=== PATIENT | male | born 1940 | race Caucasian/White ===

== ENCOUNTER → 2017-12-31 | Outpatient (CLI) | payer MEDICARE ==
[2017-12-31 16:00] LABS: HCT 37.4 % (39.0-53.0); HGB 12.1 gm/dL (13.0-17.5); MCH 30.7 pg (25.0-35.0); MCHC 32.3 g/dL (31.0-37.0); Mean Platelet Volume 10.2; Platelet Count 186 k/uL (150-450); RBC 3.94 m/uL (4.30-5.90); RDW 14.6 % (11.5-15.5); WBC 6.1 k/uL (3.8-10.6)
[2017-12-31 16:10] LABS: Anion Gap 13 mmol/L; Blood Urea Nitrogen 25 mg/dL (9-20); Calcium 9.7 mg/dL (8.4-10.2); Carbon Dioxide 25 mmol/L (22-30); Chloride 98 mmol/L (98-107); Glucose 317 mg/dL (74-99); Potassium 4.6 mmol/L (3.5-5.1); Sodium 136 mmol/L (137-145)
== END | disposition home or self-care (01) ==
LOC: LABWHC1 15:40
PROVIDERS: ATTEND Internal Medicine Cardiovascular Disease
DX: I50.9 Heart failure, unspecified (principal)
CPT/HCPCS: 36415; 80048; 85027

== ENCOUNTER → 2018-08-20 | Outpatient (CLI) | payer MEDICARE ==
[2018-08-20 10:12] LABS: Calcium 9.6 mg/dL (8.4-10.2); Potassium 4.8 mmol/L (3.5-5.1)
[2018-08-20 19:07] LABS: Hemoglobin A1C 10.4 % (4.0-6.0)
== END | disposition home or self-care (01) ==
LOC: LABWHC1 09:01
PROVIDERS: ATTEND Internal Medicine Cardiovascular Disease
DX: E11.9 Type 2 diabetes mellitus without complications (principal); N28.9 Disorder of kidney and ureter, unspecified; I25.5 Ischemic cardiomyopathy
CPT/HCPCS: 36415; 80048; 83036

== ENCOUNTER → 2019-04-08 | Outpatient (CLI) | payer MEDICARE ==
[2019-04-08 16:03] LABS: Anion Gap 10.3 mmol/L (4.00-12.00); Calcium 9.4 mg/dL (8.7-10.3); Carbon Dioxide 22.7 mmol/L (21.6-31.8); Potassium 4.1 mmol/L (3.5-5.5)
[2019-04-12 18:42] LABS: Large VLDL Particle Number,NMR 16.9 nmol/L (<=2.7)
== END | disposition home or self-care (01) ==
LOC: LABWHC1 09:11
PROVIDERS: ATTEND Internal Medicine Cardiovascular Disease
DX: I25.10 Atherosclerotic heart disease of native coronary artery without angina pectoris (principal)
CPT/HCPCS: 36415; 80048; 83704; 83880

== ENCOUNTER 2019-11-04 14:00 | Inpatient (IN) | payer MEDICARE ==
[2019-11-04] MEDS ORDERED: SODIUM CHLORIDE 0.9% 1,000 ML IV STA ×2 (14:08→15:43)
[2019-11-04 14:09] LABS: Glucose,Whole Blood 351 mg/dL (75-99)
--- NOTE | 2019-11-04 14:13 | ED ---
General Adult HPI - General Chief complaint: Syncope Stated complaint: Syncope Time Seen by Provider: 11/04/19 14:00 Source: EMS, RN notes reviewed, old records reviewed Mode of arrival: EMS Limitations: no limitations - History of Present Illness Initial comments: This is an 79-year-old male who presents to the emergency department after having had a syncopal episode. Patient went to the [place] and when he came out he was very lightheaded and according to EMS passed out. Patient's pressure was low in route and he was very pale. Patient states she was also short of breath still feels extremely weak. Patient states he is on eliquis for history of atrial fibrillation. Patient also states she's on iron because his blood count was low in the past. Patient denies any chest pain or palpitations. Patient denies any headache patient denies any focal numbness or weakness. Patient denies any abdominal pain patient denies nausea vomiting or diarrhea. Patient denies any recent fever chills or cough per patient denies any black or bloody stools. - Related Data Home Medications Medication Instructions Recorded Confirmed Ferrous Sulfate [Iron (65 MG 325 mg PO BID 08/17/15 10/29/17 Elemental)] Aspirin [Adult Low Dose Aspirin EC] 81 mg PO DAILY 06/16/16 10/29/17 Gemfibrozil [Lopid] 600 mg PO AC-BID 02/27/17 10/29/17 Metoprolol Succinate (ER) [Toprol 50 mg PO DAILY 02/27/17 10/29/17 XL] Metoprolol Succinate (ER) [Toprol 100 mg PO DAILY 02/27/17 10/29/17 XL] Previous Rx's Medication Instructions Recorded Atorvastatin [Lipitor] 40 mg PO HS #30 tablet 06/11/15 Pantoprazole Sodium [Protonix] 40 mg PO AC-BRKFST #30 tablet. 06/11/15 Insulin Detemir (Levemir) [Levemir] 20 unit SQ HS #1 syr 10/31/17 Allergies Allergy/AdvReac Type Severity Reaction Status Date / Time bismuth subsalicylate Allergy Severe ABD PAIN, Verified 10/29/17 14:22 [From Pepto-Bismol] N/V molasses Allergy Severe Nausea & Uncoded 10/29/17 13:47 Vomiting Review of Systems ROS Statement: Those systems with pertinent positive or pertinent negative responses have been documented in the HPI. ROS Other: All systems not noted in ROS Statement are negative. 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 [place]. HEART STENTS X3. Laser/Radiation Tx for Prosate CA. EXC Rt Upper Arm Melanoma, Basal Cell EXC FROM SCALP. PTCA , INDIRA 08/22/15. ABD AORTOGRAM W/ RUNOFF 12/10/15, EGD, colonoscopy with arteriovenous malformation. LEFT NECK BASAL CELL CA REMOVED Past Anesthesia/Blood Transfusion Reactions: No Reported Reaction Date of Last Stent Placement:: 1999 Type of Cardiac Device: AICD Device Placement Date:: 04/01/2016-[facility] [place]-(model [id number] pt) Past Psychological History: No Psychological Hx Reported Smoking Status: Former smoker Past Alcohol Use History: Rare Past Drug Use History: None Reported - Past Family History Father Family Medical History: Diabetes Mellitus, Myocardial Infarction ([place]) Additional Family Medical History / Comment(s): Father of a [place] at age 64yrs. Mother History Unknown: Yes Family Medical History: No Reported History Additional Family Medical History / Comment(s): Mother at age 68 yrs. General Exam - General Exam Comments Initial Comments: GENERAL: Patient is well-developed and well-nourished. Patient is nontoxic and well- hydrated and is in mild distress. ENT: Neck is soft and supple. No significant lymphadenopathy is noted. Oropharynx is clear. Moist mucous membranes. Neck has full range of motion without eliciting any pain. EYES: The sclera were anicteric and conjunctiva were pink and moist. Extraocular movements were intact and pupils were equal round and reactive to light. Eyelids were unremarkable. PULMONARY: Unlabored respirations. Good breath sounds bilaterally. No audible rales rhonchi or wheezing was noted. CARDIOVASCULAR: There is a regular rate and rhythm without any murmurs gallops or rubs. ABDOMEN: Soft and nontender with normal bowel sounds. No palpable organomegaly was noted. There is no palpable pulsatile mass. SKIN: Patient's skin is very pale NEUROLOGIC: Patient is alert and oriented x3. Cranial nerves II through XII are grossly intact. Motor and sensory are also intact. Normal speech, volume and content. Symmetrical smile. MUSCULOSKELETAL: Normal extremities with adequate strength and full range of motion. No lower extremity swelling or edema. No calf tenderness. LYMPHATICS: No significant lymphadenopathy is noted PSYCHIATRIC: Normal psychiatric evaluation. Limitations: no limitations Course Vital Signs 11/04/19 11/04/19 11/04/19 14:30 14:48 15:00 Temperature 97.6 F Pulse Rate 62 61 63 Respiratory 12 16 16 Rate Blood Pressure 86/39 97/40 97/40 O2 Sat by Pulse 100 98 100 Oximetry 11/04/19 15:44 Temperature Pulse Rate 64 Respiratory 16 Rate Blood Pressure 98/46 O2 Sat by Pulse 100 Oximetry Medical Decision Making - Medical Decision Making EKG shows paced rhythm at 60 bpm UT interval 112 QRS is 106 QT interval 444 QTC is 472. Chest x-ray shows no acute abnormality. I went back into reevaluate the patient patient stated that he was feeling considerably better. I spoke with Dr. hector he agreed to admit the patient admitted the patient wrote admitting orders. - Lab Data Result diagrams: 11/04/19 14:07 11/04/19 14:07 Lab Results 11/04/19 11/04/19 11/04/19 Range/Units 14:07 14:07 14:07 WBC 5.9 (3.8-10.6) k/uL RBC 3.09 L (4.30-5.90) m/uL Hgb 9.2 L (13.0-17.5) gm/dL Hct 28.8 L (39.0-53.0) % MCV 93.3 (80.0-100.0) fL MCH 29.7 (25.0-35.0) pg MCHC 31.8 (31.0-37.0) g/dL RDW 14.8 (11.5-15.5) % Plt Count 186 (150-450) k/uL Neutrophils % 67 % Lymphocytes % 18 % Monocytes % 9 % Eosinophils % 2 % Basophils % 1 % Neutrophils # 3.9 (1.3-7.7) k/uL Lymphocytes # 1.1 (1.0-4.8) k/uL Monocytes # 0.5 (0-1.0) k/uL Eosinophils # 0.1 (0-0.7) k/uL Basophils # 0.0 (0-0.2) k/uL Manual Slide Review Performed Large Platelets Present RBC Morphology Normal PT (9.0-12.0) sec INR (<1.2) APTT (22.0-30.0) sec Sodium 135 L (137-145) mmol/L Potassium 5.5 H (3.5-5.1) mmol/L Chloride 106 (98-107) mmol/L Carbon Dioxide 14 L (22-30) mmol/L Anion Gap 15 mmol/L BUN 48 H (9-20) mg/dL Creatinine 2.16 H (0.66-1.25) mg/dL Est GFR (CKD-EPI)AfAm 32 (>60 ml/min/1.73 sqM) Est GFR (CKD-EPI)NonAf 28 (>60 ml/min/1.73 sqM) Glucose 338 H (74-99) mg/dL POC Glucose (mg/dL) (75-99) mg/dL POC Glu Research Nurse ID Calcium 9.2 (8.4-10.2) mg/dL Magnesium 2.2 (1.6-2.3) mg/dL Total Bilirubin 0.5 (0.2-1.3) mg/dL AST 29 (17-59) U/L ALT 16 (4-49) U/L Alkaline Phosphatase 65 (38-126) U/L Troponin I (0.000-0.034) ng/mL Total Protein 6.5 (6.3-8.2) g/dL Albumin 4.0 (3.5-5.0) g/dL Blood Type B Positive Blood Type Recheck B Pos Bld Type Recheck Status No Antibody Screen NEGATIVE Spec Expiration Date 11/07/2019230611/04/19 11/04/19 11/04/19 Range/Units 14:07 14:07 14:08 WBC (3.8-10.6) k/uL RBC (4.30-5.90) m/uL Hgb (13.0-17.5) gm/dL Hct (39.0-53.0) % MCV (80.0-100.0) fL MCH (25.0-35.0) pg MCHC (31.0-37.0) g/dL RDW (11.5-15.5) % Plt Count (150-450) k/uL Neutrophils % % Lymphocytes % % Monocytes % % Eosinophils % % Basophils % % Neutrophils # (1.3-7.7) k/uL Lymphocytes # (1.0-4.8) k/uL Monocytes # (0-1.0) k/uL Eosinophils # (0-0.7) k/uL Basophils # (0-0.2) k/uL Manual Slide Review Large Platelets RBC Morphology PT 11.1 (9.0-12.0) sec INR 1.0 (<1.2) APTT 22.1 (22.0-30.0) sec Sodium (137-145) mmol/L Potassium (3.5-5.1) mmol/L Chloride (98-107) mmol/L Carbon Dioxide (22-30) mmol/L Anion Gap mmol/L BUN (9-20) mg/dL Creatinine (0.66-1.25) mg/dL Est GFR (CKD-EPI)AfAm (>60 ml/min/1.73 sqM) Est GFR (CKD-EPI)NonAf (>60 ml/min/1.73 sqM) Glucose (74-99) mg/dL POC Glucose (mg/dL) 351 H (75-99) mg/dL POC Glu Research Nurse ID Totz, Jessica Calcium (8.4-10.2) mg/dL Magnesium (1.6-2.3) mg/dL Total Bilirubin (0.2-1.3) mg/dL AST (17-59) U/L ALT (4-49) U/L Alkaline Phosphatase (38-126) U/L Troponin I 0.014 (0.000-0.034) ng/mL Total Protein (6.3-8.2) g/dL Albumin (3.5-5.0) g/dL Blood Type Blood Type Recheck Bld Type Recheck Status Antibody Screen Spec Expiration Date Disposition Clinical Impression: Syncope, Hypotension, Renal insufficiency, Anemia Disposition: ADMITTED IP TO THIS HOSP Referrals: Ivy Ventura MD [Primary Care Provider] - 1-2 days Time of Disposition: 16:00
[2019-11-04 14:16] LABS: Basophils % (A) 1 %; Eosinophils # (A) 0.1 k/uL (0-0.7); Eosinophils % (A) 2 %; HCT 28.8 % (39.0-53.0); HGB 9.2 gm/dL (13.0-17.5); Lymphocytes # (A) 1.1 k/uL (1.0-4.8); Lymphocytes % (A) 18 %; MCH 29.7 pg (25.0-35.0); MCHC 31.8 g/dL (31.0-37.0); MCV 93.3 fL (80.0-100.0); Mean Platelet Volume 11.4; Monocytes # (A) 0.5 k/uL (0-1.0); Monocytes % (A) 9 %; Neutrophils # (A) 3.9 k/uL (1.3-7.7); Neutrophils % (A) 67 %; Platelet Count 186 k/uL (150-450); RBC 3.09 m/uL (4.30-5.90); RDW 14.8 % (11.5-15.5); WBC 5.9 k/uL (3.8-10.6)
[2019-11-04 14:26] LABS: Calcium 9.2 mg/dL (8.4-10.2); Magnesium 2.2 mg/dL (1.6-2.3); Potassium 5.5 mmol/L (3.5-5.1); Total Bilirubin 0.5 mg/dL (0.2-1.3); Total Protein 6.5 g/dL (6.3-8.2)
[2019-11-04 14:27] LABS: Partial Thromboplastin Time 22.1 sec (22.0-30.0); Prothrombin Time 11.1 sec (9.0-12.0)
--- NOTE | 2019-11-04 14:42 | XR ---
EXAMINATION TYPE: XR chest 2V DATE OF EXAM: 11/04/2019 COMPARISON: 10/29/2017 INDICATION: Weakness, syncope TECHNIQUE: Frontal and lateral views of the chest are obtained. FINDINGS: The heart size is normal. The pulmonary vasculature is normal. Pacemaker overlies left chest.. Post cardiac valve surgery is evident. IMPRESSION: 1. No acute pulmonary process.
[2019-11-04 15:11] LABS: Large Platelets Present
[2019-11-04] MEDS ORDERED: NITROGLYCERIN SL TABS 0.4 MG TAB SUBLINGUAL PRN (16:00)
[2019-11-04 21:00] LABS: Glucose,Whole Blood 457 mg/dL (75-99)
[2019-11-04] MEDS ORDERED: INSULIN DETEMIR (LEVEMIR) 100 UNIT/ML SYR SQ SCH ×3 (21:00→23:00)
[2019-11-04] MEDS: FERROUS SULFATE 325 MG TAB PO SCH (21:20)
[2019-11-04] MEDS: INSULIN ASPART (NovoLOG) 100 UNIT/ML VIAL SQ SCH (21:20)
[2019-11-04] MEDS: APIXABAN 5 MG TAB PO SCH (21:20)
--- NOTE | 2019-11-04 22:47 | P.HPIM ---
History of Present Illness this is a pleasant 7 years old male with past medical history of diabetes mellitus, hypertension, hyperlipidemia, coronary artery disease status post cardiac cath and stent placement status post AICD. GI bleed status post EGD showing arteriovenous malformation,skin cancer, prostate cancer status post radiotherapy and laser therapy, GERD. Patient presents with syncope. pt was going to the restroom when he felt dizzy, nauseated , and shortly after that he passed out for one or two minutes with no seizure like activity , no urine or bowel incontinance, he woke up shortly after that , they called ambulance for him and on the way to the emergency room he passed out again as per EMS. pt is diabetic and he uses Novolin N 10 U with meal and long acting insulin 65 U at bed time provided for him by his pcp as free sample , but he stopped providing them for the last one month , he contacted his pcp who asked him just to wait. pt was complaining from polyyrea , polydipsia and generalized weakness, last month he checked his BP with his pcp office and it was 106/66 which surprised the as his usual systolic BP is in the 120-130 range, but his pcp did nothing about it. on admission patient was hypotensive with a blood pressure 86/39, was bradycardic with heart rate of 61-64, afebrile,EKG showing sinus rhythm with fusion complex. Chest x-ray: No acute process.CBC showing hemoglobin of 9.2. In 08/2019 was 8.9. INR is 1.0. Potassium 5.5, creatinine 2.16, creatinine in 08/2019 was 2.2, 6 months ago it was 1.2.troponin is negative. Magnesium is 2.2, liver enzymes not elevated. in the emergency room patient received 2 L of IV fluids Review of Systems CONSTITUTIONAL: No fever, no malaise, no fatigue. HEENT: No recent visual problems or hearing problems. Denied any sore throat. CARDIOVASCULAR: No orthopnea, PND, no palpitations, no syncope. PULMONARY: No shortness of breath, no cough, no hemoptysis. GASTROINTESTINAL: No diarrhea, no nausea, no vomiting, no abdominal pain. Normoactive bowel sounds. NEUROLOGICAL: No headaches, no weakness, no numbness. HEMATOLOGICAL: Denies any bleeding or petechiae. GENITOURINARY: Denies any burning micturition, frequency, or urgency. MUSCULOSKELETAL/RHEUMATOLOGICAL: Denies any joint pain, swelling, or any muscle pain. ENDOCRINE: Denies any polyuria or polydipsia. Past Medical History Past Medical History: Cancer, Diabetes Mellitus, GERD/Reflux, GI Bleed, Hyperlipidemia, Hypertension, Myocardial Infarction ([place]), Prostate Disorder, Skin Disorder, Vascular Disorder Additional Past Medical History / Comment(s): HX PROSTATE [place] with radiation and laser sx, & Basal Cell and Melanoma Skin - CURRENT AREAS DERMATOLOGY WATCHING SCALP, FACE,LT EAR; microcytic iron deficiency anemia, duodenitis Last Myocardial Infarction Date:: 1999 History of Any Multi-Drug Resistant Organisms: None Reported Past Surgical History: Adenoidectomy, AICD, Cardiac Valve Replacement, Heart Catheterization, Heart Catheterization With Stent, Tonsillectomy Additional Past Surgical History / Comment(s): 12/12/15 R fempop PTCA with stent X2.Other surgical hx 09/2015 TARV AT [facility] [place]. HEART STENTS X3. Laser/Radiation Tx for Prosate CA. EXC Rt Upper Arm Melanoma, Basal Cell EXC FROM SCALP. PTCA 06/15/15, INDIRA 08/22/15. ABD AORTOGRAM W/ RUNOFF 12/10/15, EGD, colonoscopy with arteriovenous malformation. LEFT NECK BASAL CELL CA REMOVED Past Anesthesia/Blood Transfusion Reactions: No Reported Reaction Date of Last Stent Placement:: 1999 Type of Cardiac Device: AICD Device Placement Date:: 04/01/2016-[employer] [place]-(model [id number] pt) Past Psychological History: No Psychological Hx Reported Smoking Status: Former smoker Past Alcohol Use History: Rare Past Drug Use History: None Reported - Past Family History Father Family Medical History: Diabetes Mellitus, Myocardial Infarction ([place]) Additional Family Medical History / Comment(s): Father of a [place] at age 64yrs. Mother History Unknown: Yes Family Medical History: No Reported History Additional Family Medical History / Comment(s): Mother at age 68 yrs. Medications and Allergies Home Medications Medication Instructions Recorded Confirmed Type Pantoprazole Sodium [Protonix] 40 mg PO AC-BRKFST #30 tablet. 06/11/15 11/04/19 Rx Ferrous Sulfate [Iron (65 MG 325 mg PO BID 08/17/15 11/04/19 History Elemental)] Gemfibrozil [Lopid] 600 mg PO AC-BID 02/27/17 11/04/19 History Metoprolol Succinate (ER) [Toprol 100 mg PO BID 02/27/17 11/04/19 History XL] Apixaban [Eliquis] 5 mg PO BID 11/04/19 11/04/19 History Ezetimibe 10 mg PO DAILY 11/04/19 11/04/19 History Furosemide [Lasix] 20 mg PO DAILY 11/04/19 11/04/19 History Insulin Degludec [Tresiba] 65 units SQ DAILY 11/04/19 11/04/19 History Insulin NPH Human Isophane 10 unit SQ TID 11/04/19 11/04/19 History [NovoLIN N] Lisinopril [Zestril] 10 mg PO DAILY 11/04/19 11/04/19 History Rosuvastatin Calcium 40 mg PO DAILY 11/04/19 11/04/19 History Spironolactone 25 mg PO DAILY 11/04/19 11/04/19 History sitaGLIPtin PHOSPHATE [Januvia] 50 mg PO DAILY 11/04/19 11/04/19 History Allergies Allergy/AdvReac Type Severity Reaction Status Date / Time bismuth subsalicylate Allergy Severe ABD PAIN, Verified 11/04/19 17:24 [From Pepto-Bismol] N/V molasses Allergy Severe Nausea & Uncoded 11/04/19 17:24 Vomiting Physical Exam Vitals: Vital Signs Temp Pulse Resp BP Pulse Ox 11/04/19 15:44 64 16 98/46 100 11/04/19 15:00 63 16 97/40 100 11/04/19 14:48 97.6 F 61 16 97/40 98 11/04/19 14:30 62 12 86/39 100 Intake and Output 11/04/19 11/04/19 11/04/19 06:59 14:59 22:59 Other: Weight 95.708 kg GENERAL: The patient is alert and oriented x3, not in any acute distress. Well developed, well nourished. HEENT: Pupils are round and equally reacting to light. EOMI. No scleral icterus. No conjunctival pallor. Normocephalic, atraumatic. No pharyngeal erythema. No thyromegaly. CARDIOVASCULAR: S1 and S2 present. No murmurs, rubs, or gallops. PULMONARY: Chest is clear to auscultation, no wheezing or crackles. ABDOMEN: Soft, nontender, nondistended, normoactive bowel sounds. No palpable organomegaly. MUSCULOSKELETAL: No joint swelling or deformity. EXTREMITIES: No cyanosis, clubbing, or pedal edema. NEUROLOGICAL: Gross neurological examination did not reveal any focal deficits. SKIN: No rashes. No petechiae Results CBC & Chem 7: 11/04/19 14:07 11/04/19 14:07 Labs: Abnormal Lab Results - Last 24 Hours (Table) 11/04/19 11/04/19 11/04/19 Range/Units 14:07 14:07 14:08 RBC 3.09 L (4.30-5.90) m/uL Hgb 9.2 L (13.0-17.5) gm/dL Hct 28.8 L (39.0-53.0) % Sodium 135 L (137-145) mmol/L Potassium 5.5 H (3.5-5.1) mmol/L Carbon Dioxide 14 L (22-30) mmol/L BUN 48 H (9-20) mg/dL Creatinine 2.16 H (0.66-1.25) mg/dL Glucose 338 H (74-99) mg/dL POC Glucose (mg/dL) 351 H (75-99) mg/dL Assessment and Plan Assessment: syncope, mostly related to hypovolemia Hypotension and bradycardia hypovolemia and sever dehydration Acute on chronic kidney disease non compliance to medication abnormal EKG with fusion complexes and low voltage. elevated glucose at 338 on admission, suspicious for hyperglycemic nonketotic syndrome Diabetes mellitus with hyperglycemia Hypertension Hyperlipidemia generalized weakness history of coronary artery disease status post cardiac cath and stent placement status post AICD history of GI bleed status post EGD showing arteriovenous malformation prostate cancer status post radiotherapy and laser therapy GERD History of skin cancer Plan: this is a pleasant 79 years old malewho presents because of syncope and hypertension. He received fluid resuscitation continue with IV fluid. We'll admit with telemetry monitoring. Cardiology consult. Serial troponins. Labs and medication were reviewed.. Continue same treatment. Continue with symptomatic treatment. Resume home medication. Monitor lytes and vitals. DVT and GI prophylaxis. Further recommendations of the clinical course of the patient DVT prophylaxis: Subcutaneous heparin GI Prophylaxis: Pepcid PT/OT: Pending Prognosis is guarded
[2019-11-04 22:52] LABS: Glucose,Whole Blood 346 mg/dL (75-99)
[2019-11-04] MEDS ORDERED: SODIUM CHLORIDE 0.9% 500 ML 500 ML IV ONE (22:52)
[2019-11-04] MEDS ORDERED: INSULIN DETEMIR (LEVEMIR) 100 UNIT/ML SYR SQ ONE (23:00)
[2019-11-04] MEDS: SODIUM CHLORIDE 0.9% 1,000 ML IV SCH (23:59)
[2019-11-05] LABS: Glucose,Whole Blood 302 mg/dL (75-99)
[2019-11-05 06:15] LABS: Basophils # (A) 0.1 k/uL (0-0.2); Basophils % (A) 1 %; Eosinophils # (A) 0.2 k/uL (0-0.7); Eosinophils % (A) 3 %; HCT 28.1 % (39.0-53.0); HGB 8.7 gm/dL (13.0-17.5); Hypochromasia Slight; Lymphocytes # (A) 1.6 k/uL (1.0-4.8); Lymphocytes % (A) 22 %; MCH 29.9 pg (25.0-35.0); MCHC 30.8 g/dL (31.0-37.0); MCV 96.8 fL (80.0-100.0); Monocytes # (A) 0.6 k/uL (0-1.0); Monocytes % (A) 8 %; Neutrophils # (A) 4.6 k/uL (1.3-7.7); Neutrophils % (A) 63 %; Platelet Count 171 k/uL (150-450); RBC 2.91 m/uL (4.30-5.90); RDW 14.8 % (11.5-15.5); WBC 7.3 k/uL (3.8-10.6)
[2019-11-05 06:27] LABS: Calcium 9.1 mg/dL (8.4-10.2); Potassium 4.8 mmol/L (3.5-5.1)
[2019-11-05 06:54] LABS: Glucose,Whole Blood 189 mg/dL (75-99)
[2019-11-05] MEDS: INSULIN ASPART (NovoLOG) 100 UNIT/ML VIAL SQ SCH ×9 (07:00→21:11)
[2019-11-05] MEDS: PANTOPRAZOLE 40 MG TABLET PO SCH (07:01)
--- NOTE | 2019-11-05 08:21 | P.PN ---
Subjective this is a pleasant 7 years old male with past medical history of diabetes mellitus, hypertension, hyperlipidemia, coronary artery disease status post cardiac cath and stent placement status post AICD. GI bleed status post EGD showing arteriovenous malformation,skin cancer, prostate cancer status post radiotherapy and laser therapy, GERD. Patient presents with syncope. pt was going to the restroom when he felt dizzy, nauseated , and shortly after that he passed out for one or two minutes with no seizure like activity , no urine or bowel incontinance, he woke up shortly after that , they called ambulance for him and on the way to the emergency room he passed out again as per EMS. pt is diabetic and he uses Novolin N 10 U with meal and long acting insulin 65 U at bed time provided for him by his pcp as free sample , but he stopped provid ing them for the last one month , he contacted his pcp who asked him just to wait. pt was complaining from polyyrea , polydipsia and generalized weakness, last month he checked his BP with his pcp office and it was 106/66 which surprised the as his usual systolic BP is in the 120-130 range, but his pcp did nothing about it. on admission patient was hypotensive with a blood pressure 86/39, was bradycardic with heart rate of 61-64, afebrile,EKG showing sinus rhythm with fusion complex. Chest x-ray: No acute process.CBC showing hemoglobin of 9.2. In 08/2019 was 8.9. INR is 1.0. Potassium 5.5, creatinine 2.16, creatinine in 08/2019 was 2.2, 6 months ago it was 1.2.troponin is negative. Magnesium is 2.2, liver enzymes not elevated. in the emergency room patient received 2 L of IV fluids 11/05/2019 patient is awake and alert, he denies chest pain or dyspnea. No dizziness, no more syncope or presyncope. Patient feels he is improving.vitals are stable and his blood pressure is 87/49 and 101/51.his creatinine is improved down to 1.6, sugar is better controlled at 189. His hemoglobin is 8.7. Metoprolol is on hold, while continue on home saline at 75 mL/h, his Levemir dose was increased to 40 units at bedtime and 10 units of short acting insulin with meals plus linagliptin 5 mg daily. Review of systems CONSTITUTIONAL: No fever, no malaise, no fatigue. HEENT: No recent visual problems or hearing problems. Denied any sore throat. CARDIOVASCULAR: No orthopnea, PND, no palpitations, no syncope. PULMONARY: No shortness of breath, no cough, no hemoptysis. GASTROINTESTINAL: No diarrhea, no nausea, no vomiting, no abdominal pain. Normoactive bowel sounds. NEUROLOGICAL: No headaches, no weakness, no numbness. HEMATOLOGICAL: Denies any bleeding or petechiae. GENITOURINARY: Denies any burning micturition, frequency, or urgency. MUSCULOSKELETAL/RHEUMATOLOGICAL: Denies any joint pain, swelling, or any muscle pain. ENDOCRINE: Denies any polyuria or polydipsia. Active Medications Generic Name Dose Route Start Last Admin Trade Name Freq PRN Reason Stop Dose Admin Apixaban 5 mg 11/04/19 21:00 11/04/19 21:20 Eliquis PO 5 mg BID MOHAN Administration Aspirin 325 mg 11/05/19 09:00 Aspirin PO DAILY [facility] Atorvastatin Calcium 80 mg 11/05/19 09:00 Lipitor PO DAILY [facility]AN Ezetimibe 10 mg 11/05/19 09:00 Zetia PO DAILY [facility] Fenofibrate 160 mg 11/05/19 09:00 Lofibra PO DAILY [facility] Ferrous Sulfate 325 mg 11/04/19 21:00 11/04/19 21:20 Feosol PO 325 mg BID MOHAN Administration Sodium Chloride 1,000 mls @ 75 mls/hr 11/04/19 19:30 11/04/19 23:59 Saline 0.9% IV 100 mls/hr .[id number] MOHAN Administration Insulin Aspart 10 unit 11/05/19 07:30 Novolog SQ AC-TID MOHAN Insulin Aspart 0 unit 11/04/19 21:00 11/04/19 21:20 Novolog SQ 20 unit ACHS MOHAN Administration Protocol Insulin Detemir 40 unit 11/05/19 21:00 Levemir SQ HS M[facility]AN Linagliptin 5 mg 11/05/19 09:00 Tradjenta PO DAILY [facility]AN Nitroglycerin 0.4 mg 11/04/19 16:00 Nitrostat SUBLINGUAL Q5M PRN Chest Pain Pantoprazole Sodium 40 mg 11/05/19 07:30 11/05/19 07:01 Protonix PO 40 mg [id number] MOHAN Administration Objective - Vital Signs Vital signs: Vital Signs Temp 98 F 11/04/19 20:00 Pulse 68 11/05/19 04:00 Resp 18 11/05/19 04:00 BP 113/53 11/05/19 04:00 Pulse Ox 98 11/05/19 04:00 Intake & Output 11/04/19 11/05/19 11/05/19 18:59 06:59 18:59 Weight 95.708 kg 94.8 kg Other: Voiding Method Toilet - Exam GENERAL: The patient is alert and oriented x3, not in any acute distress. Well developed, well nourished. HEENT: Pupils are round and equally reacting to light. EOMI. No scleral icterus. No conjunctival pallor. Normocephalic, atraumatic. No pharyngeal erythema. No thyromegaly. CARDIOVASCULAR: S1 and S2 present. No murmurs, rubs, or gallops. PULMONARY: Chest is clear to auscultation, no wheezing or crackles. ABDOMEN: Soft, nontender, nondistended, normoactive bowel sounds. No palpable organomegaly. MUSCULOSKELETAL: No joint swelling or deformity. EXTREMITIES: No cyanosis, clubbing, or pedal edema. NEUROLOGICAL: Gross neurological examination did not reveal any focal deficits. SKIN: No rashes. No petechiae - Labs CBC & Chem 7: 11/05/19 05:21 11/05/19 05:21 Labs: Abnormal Lab Results - Last 24 Hours (Table) 11/04/19 11/04/19 11/04/19 Range/Units 14:07 14:07 14:08 RBC 3.09 L (4.30-5.90) m/uL Hgb 9.2 L (13.0-17.5) gm/dL Hct 28.8 L (39.0-53.0) % MCHC (31.0-37.0) g/dL Sodium 135 L (137-145) mmol/L Potassium 5.5 H (3.5-5.1) mmol/L Chloride (98-107) mmol/L Carbon Dioxide 14 L (22-30) mmol/L BUN 48 H (9-20) mg/dL Creatinine 2.16 H (0.66-1.25) mg/dL Glucose 338 H (74-99) mg/dL POC Glucose (mg/dL) 351 H (75-99) mg/dL Triglycerides (<150) mg/dL HDL Cholesterol (40-60) mg/dL 11/04/19 11/04/19 11/04/19 Range/Units 20:58 22:51 23:58 RBC (4.30-5.90) m/uL Hgb (13.0-17.5) gm/dL Hct (39.0-53.0) % MCHC (31.0-37.0) g/dL Sodium (137-145) mmol/L Potassium (3.5-5.1) mmol/L Chloride (98-107) mmol/L Carbon Dioxide (22-30) mmol/L BUN (9-20) mg/dL Creatinine (0.66-1.25) mg/dL Glucose (74-99) mg/dL POC Glucose (mg/dL) 457 H 346 H 302 H (75-99) mg/dL Triglycerides (<150) mg/dL HDL Cholesterol (40-60) mg/dL 11/05/19 11/05/19 11/05/19 Range/Units 05:21 05:21 06:53 RBC 2.91 L (4.30-5.90) m/uL Hgb 8.7 L (13.0-17.5) gm/dL Hct 28.1 L (39.0-53.0) % MCHC 30.8 L (31.0-37.0) g/dL Sodium (137-145) mmol/L Potassium (3.5-5.1) mmol/L Chloride 111 H (98-107) mmol/L Carbon Dioxide 15 L (22-30) mmol/L BUN 40 H (9-20) mg/dL Creatinine 1.63 H (0.66-1.25) mg/dL Glucose 168 H (74-99) mg/dL POC Glucose (mg/dL) 189 H (75-99) mg/dL Triglycerides 360 H (<150) mg/dL HDL Cholesterol 26 L (40-60) mg/dL Assessment and Plan Assessment: syncope, mostly related to hypovolemia Hypotension and bradycardia hypovolemia and sever dehydration Acute on chronic kidney disease non compliance to medication abnormal EKG with fusion complexes and low voltage. elevated glucose at 338 on admission, suspicious for hyperglycemic nonketotic syndrome Diabetes mellitus with hyperglycemia Hypertension Hyperlipidemia generalized weakness history of coronary artery disease status post cardiac cath and stent placement status post AICD history of GI bleed status post EGD showing arteriovenous malformation prostate cancer status post radiotherapy and laser therapy GERD History of skin cancer Plan: this is a pleasant 79 years old malewho presents because of syncope and hypotension and hyperglycemia nonketotic syndrome. He received fluid resuscitation continue with IV fluid. We'll admit with telemetry monitoring. Cardiology consult. Serial troponins. Labs and medication were reviewed.. Continue same treatment. Continue with symptomatic treatment. Resume home medication. Monitor lytes and vitals. DVT and GI prophylaxis. Further recommendations of the clinical course of the patient DVT prophylaxis: Subcutaneous heparin GI Prophylaxis: Pepcid PT/OT: Pending Prognosis is guarded
[2019-11-05] MEDS: APIXABAN 5 MG TAB PO SCH ×2 (08:24→21:13)
[2019-11-05] MEDS: ASPIRIN 325 MG TAB PO SCH (08:24)
[2019-11-05] MEDS: SODIUM CHLORIDE 0.9% 1,000 ML IV SCH ×2 (08:24→21:13)
[2019-11-05] MEDS: FERROUS SULFATE 325 MG TAB PO SCH ×2 (08:24→21:13)
[2019-11-05] MEDS: FENOFIBRATE 160 MG TAB PO SCH (08:24)
[2019-11-05] MEDS: ATORVASTATIN 80 MG TAB PO SCH (08:24)
[2019-11-05] MEDS: EZETIMIBE 10 MG TAB PO SCH (08:24)
[2019-11-05] MEDS: LINAGLIPTIN 5 MG TABLET PO SCH (08:45)
[2019-11-05 08:46] LABS: Glucose,Whole Blood 180 mg/dL (75-99)
--- NOTE | 2019-11-05 11:21 | CONS ---
CONSULTATION This patient's medical records reviewed. This patient is known to me. The patient has a history of diabetes, hypertension, chronic renal failure, significant peripheral vascular disease, prior history of AICD TAVR and the stenting. The patient gives a history that patient had been on long-acting insulin and he did not take for last 1 month because he could not afford it. He had been complaining of some polyuria and polydipsia and generalized weakness. The patient went to the [facility] yesterday and he had some neck pain and then he felt kind of dizzy and he almost passed out. No seizure activity was noted. He was nauseated. He denied any chest discomfort. Patient is feeling better. This morning patient's blood pressures were recorded. There was no evidence of orthostatic hypotension. PAST MEDICAL HISTORY: Includes history of stent to the femoral artery, history of TAVR, history of cardiac stent, history of prostate cancer, peripheral vascular disease, left neck basal cell carcinoma and history of diabetes, hypertension. HOME MEDICATIONS: Included Protonix, metoprolol 100 mg b.i.d., Lopid 600 mg b.i.d., Eliquis 5 mg b.i.d., Zetia 10 mg daily, Tarceva 65 units daily, Zestril 10 mg daily, and Januvia 50 mg daily. PHYSICAL EXAMINATION: At present reveals an 79-year-old gentleman who does not appear to be in any acute distress. The patient was initially hypotensive in the emergency room with a blood pressure of 86/39. Blood pressure now is 100/70 mmHg. Head ENT examination is negative. Neck is supple. There is no increase in jugular venous pressure. Both the carotid pulses are felt. There is no bruit. Chest is symmetrical. Heart: The PMI is not felt. First and second heart sounds are heard. There is ejection systolic murmur noted. Lungs are clinically clear to auscultation and percussion. ABDOMEN: Soft. Extremities: Peripheral pulsations are not felt. The patient's initial creatinine 2.16 and hemoglobin is 9.2. Repeat electrolytes reveal creatinine 1.63. FINAL IMPRESSION: 1. Syncope most likely secondary to orthostatic hypotension and hypovolemia. 2. Stable coronary artery disease with a prior history of a stent placement and history of TAVR. 3. History of significant peripheral vascular disease. 4. History of hypertension and diabetes. RECOMMENDATIONS: We will continue to hydrate the patient for next 24 hours. If the patient remains stable, he can be discharged home. Further workup for anemia is a concern. It could be secondary to underlying the patient's chronic kidney disease. We will get serum iron, total iron-binding capacity, may need iron infusion. MMODL / IJN: [id number] /
[2019-11-05 11:51] LABS: Glucose,Whole Blood 309 mg/dL (75-99)
[2019-11-05 17:03] LABS: Glucose,Whole Blood 257 mg/dL (75-99)
[2019-11-05 17:24] LABS: Hemoglobin A1C 9.5 % (4.0-6.0)
[2019-11-05 17:25] LABS: % Iron Saturation 19.22 (15.00-50.00)
[2019-11-05] MEDS ORDERED: INSULIN DETEMIR (LEVEMIR) 100 UNIT/ML SYR SQ SCH (21:00)
[2019-11-05 21:09] LABS: Glucose,Whole Blood 324 mg/dL (75-99)
[2019-11-05] MEDS: INSULIN DETEMIR (LEVEMIR) 100 UNIT/ML SYR SQ SCH (21:13)
[2019-11-06 06:19] LABS: HCT 24.4 % (39.0-53.0); HGB 7.8 gm/dL (13.0-17.5); Hypochromasia Slight; MCH 30.5 pg (25.0-35.0); MCHC 31.8 g/dL (31.0-37.0); MCV 95.8 fL (80.0-100.0); Mean Platelet Volume 11.7; Platelet Count 151 k/uL (150-450); RBC 2.55 m/uL (4.30-5.90); RDW 14.7 % (11.5-15.5)
[2019-11-06 06:29] LABS: Calcium 8.8 mg/dL (8.4-10.2)
[2019-11-06 06:44] LABS: Potassium 4.6 mmol/L (3.5-5.1)
[2019-11-06 07:04] LABS: Glucose,Whole Blood 199 mg/dL (75-99)
[2019-11-06] MEDS: INSULIN ASPART (NovoLOG) 100 UNIT/ML VIAL SQ SCH ×7 (07:47→21:26)
[2019-11-06] MEDS: EZETIMIBE 10 MG TAB PO SCH (07:48)
[2019-11-06] MEDS: ATORVASTATIN 80 MG TAB PO SCH (07:48)
[2019-11-06] MEDS: LINAGLIPTIN 5 MG TABLET PO SCH (07:48)
[2019-11-06] MEDS: APIXABAN 5 MG TAB PO SCH ×2 (07:48→21:26)
[2019-11-06] MEDS: PANTOPRAZOLE 40 MG TABLET PO SCH (07:48)
[2019-11-06] MEDS: FERROUS SULFATE 325 MG TAB PO SCH ×2 (07:48→21:26)
[2019-11-06] MEDS: ASPIRIN 325 MG TAB PO SCH (07:48)
[2019-11-06] MEDS: FENOFIBRATE 160 MG TAB PO SCH (07:50)
--- NOTE | 2019-11-06 10:28 | P.PN ---
Subjective this is a pleasant 7 years old male with past medical history of diabetes mellitus, hypertension, hyperlipidemia, coronary artery disease status post cardiac cath and stent placement status post AICD. GI bleed status post EGD showing arteriovenous malformation,skin cancer, prostate cancer status post radiotherapy and laser therapy, GERD. Patient presents with syncope. pt was going to the restroom when he felt dizzy, nauseated , and shortly after that he passed out for one or two minutes with no seizure like activity , no urine or bowel incontinance, he woke up shortly after that , they called ambulance for him and on the way to the emergency room he passed out again as per EMS. pt is diabetic and he uses Novolin N 10 U with meal and long acting insulin 65 U at bed time provided for him by his pcp as free sample , but he stopped provid ing them for the last one month , he contacted his pcp who asked him just to wait. pt was complaining from polyyrea , polydipsia and generalized weakness, last month he checked his BP with his pcp office and it was 106/66 which surprised the as his usual systolic BP is in the 120-130 range, but his pcp did nothing about it. on admission patient was hypotensive with a blood pressure 86/39, was bradycardic with heart rate of 61-64, afebrile,EKG showing sinus rhythm with fusion complex. Chest x-ray: No acute process.CBC showing hemoglobin of 9.2. In 08/2019 was 8.9. INR is 1.0. Potassium 5.5, creatinine 2.16, creatinine in 08/2019 was 2.2, 6 months ago it was 1.2.troponin is negative. Magnesium is 2.2, liver enzymes not elevated. in the emergency room patient received 2 L of IV fluids 11/05/2019 patient is awake and alert, he denies chest pain or dyspnea. No dizziness, no more syncope or presyncope. Patient feels he is improving.vitals are stable and his blood pressure is 87/49 and 101/51.his creatinine is improved down to 1.6, sugar is better controlled at 189. His hemoglobin is 8.7. Metoprolol is on hold, while continue on home saline at 75 mL/h, his Levemir dose was increased to 40 units at bedtime and 10 units of short acting insulin with meals plus linagliptin 5 mg daily. 11/06/2019 Patient is awake and alert and he is improving. Denies dyspnea or chest pain. His blood pressure is improved today to 125/58. And his sugar is better controlled. However patient today has an episode of V. tach. We going to interrogate his AICD. Also his metoprolol was held on admission due to hypertension we'll keep monitoring for now. Creatinine is improved to 1.2 which is close to his baseline. Hemoglobin A1c is 9.5% for uncontrolled diabetes. Vitamin B12 is pending Continue with normal saline. Discussed with staff to consult clinical social work therapist to ensure he can afford his medication including the lung acting insulin. Objective - Vital Signs Vital signs: Vital Signs Temp 98.1 F 11/06/19 08:00 Pulse 100 11/06/19 08:00 Resp 18 11/06/19 08:00 BP 125/58 11/06/19 08:00 Pulse Ox 98 11/06/19 08:00 Intake & Output 11/05/19 11/06/19 11/06/19 18:59 06:59 18:59 Intake Total 600 240 Balance 600 240 Weight 95.9 kg Intake: IV 600 Sodium Chloride 0.9% 1, 600 000 ml @ 75 mls/hr IV . [id number] [facility] Rx#:[id number] Oral 240 Other: Voiding Method Toilet Toilet Toilet - Exam GENERAL: The patient is alert and oriented x3, not in any acute distress. Well developed, well nourished. HEENT: Pupils are round and equally reacting to light. EOMI. No scleral icterus. No conjunctival pallor. Normocephalic, atraumatic. No pharyngeal erythema. No thyromegaly. CARDIOVASCULAR: S1 and S2 present. No murmurs, rubs, or gallops. PULMONARY: Chest is clear to auscultation, no wheezing or crackles. ABDOMEN: Soft, nontender, nondistended, normoactive bowel sounds. No palpable organomegaly. MUSCULOSKELETAL: No joint swelling or deformity. EXTREMITIES: No cyanosis, clubbing, or pedal edema. NEUROLOGICAL: Gross neurological examination did not reveal any focal deficits. SKIN: No rashes. No petechiae - Labs CBC & Chem 7: 11/06/19 05:14 11/06/19 05:14 Labs: Abnormal Lab Results - Last 24 Hours (Table) 11/05/19 11/05/19 11/05/19 Range/Units 05:21 05:21 11:39 RBC (4.30-5.90) m/uL Hgb (13.0-17.5) gm/dL Hct (39.0-53.0) % Chloride (98-107) mmol/L Carbon Dioxide (22-30) mmol/L BUN (9-20) mg/dL Creatinine (0.66-1.25) mg/dL Glucose (74-99) mg/dL POC Glucose (mg/dL) 309 H (75-99) mg/dL Hemoglobin A1c 9.5 H (4.0-6.0) % TIBC 489 H (228-460) ug/dL 11/05/19 11/05/19 11/06/19 Range/Units 17:02 21:07 05:14 RBC (4.30-5.90) m/uL Hgb (13.0-17.5) gm/dL Hct (39.0-53.0) % Chloride 110 H (98-107) mmol/L Carbon Dioxide 19 L (22-30) mmol/L BUN 28 H (9-20) mg/dL Creatinine 1.28 H (0.66-1.25) mg/dL Glucose 181 H (74-99) mg/dL POC Glucose (mg/dL) 257 H 324 H (75-99) mg/dL Hemoglobin A1c (4.0-6.0) % TIBC (228-460) ug/dL 11/06/19 11/06/19 Range/Units 05:14 07:02 RBC 2.55 L (4.30-5.90) m/uL Hgb 7.8 L (13.0-17.5) gm/dL Hct 24.4 L (39.0-53.0) % Chloride (98-107) mmol/L Carbon Dioxide (22-30) mmol/L BUN (9-20) mg/dL Creatinine (0.66-1.25) mg/dL Glucose (74-99) mg/dL POC Glucose (mg/dL) 199 H (75-99) mg/dL Hemoglobin A1c (4.0-6.0) % TIBC (228-460) ug/dL Assessment and Plan Assessment: syncope, mostly related to hypovolemia Hypotension and bradycardia hypovolemia and sever dehydration Acute on chronic kidney disease non compliance to medication abnormal EKG with fusion complexes and low voltage. elevated glucose at 338 on admission, suspicious for hyperglycemic nonketotic syndrome Diabetes mellitus with hyperglycemia Hypertension Hyperlipidemia generalized weakness history of coronary artery disease status post cardiac cath and stent placement status post AICD history of GI bleed status post EGD showing arteriovenous malformation prostate cancer status post radiotherapy and laser therapy GERD History of skin cancer Plan: this is a pleasant 79 years old malewho presents because of syncope and hypotension and hyperglycemia nonketotic syndrome. He received fluid resuscitation continue with IV fluid. We'll admit with telemetry monitoring. Cardiology consult. AICD interrogation. Keep metoprolol hold for now. Vitamin B12 is ordered and the result is pending. Labs and medication were reviewed.. Continue same treatment. Continue with symptomatic treatment. Resume home medication. Monitor lytes and vitals. DVT and GI prophylaxis. Further recommendations of the clinical course of the patient DVT prophylaxis: Subcutaneous heparin GI Prophylaxis: Pepcid PT/OT: Physical therapist recommended home with home health care Prognosis is guarded
[2019-11-06 11:34] LABS: Glucose,Whole Blood 250 mg/dL (75-99)
[2019-11-06] MEDS: SODIUM CHLORIDE 0.9% 1,000 ML IV SCH (11:49)
[2019-11-06] MEDS ORDERED: DEXTROSE 5% IN WATER 100 ML with AMIODARONE 150 MG IV ONE (12:00)
[2019-11-06] MEDS ORDERED: AMIODARONE 360 MG in DEXTROSE 5% IN WATER 200 ML IV ONE ×2 (12:00)
--- NOTE | 2019-11-06 13:17 | PN ---
PROGRESS NOTE This patient was admitted with symptoms of syncope which was thought to be due to the orthostatic hypotension. Patient is feeling better. The patient had a run of wide QRS complex tachycardia this morning, which lasted for a few minutes. Patient was asymptomatic. It could be a ventricular tachycardia versus atrial fibrillation. The patient was not symptomatic. He is doing well. We will interrogate the patient's AICD. Blood pressure is 125/58 mmHg. First and second heart sounds are normal. Lungs are clinically clear to auscultation and percussion. This patient was taking metoprolol-XL 100 mg at home which has not been restarted. We will restart the patient's metoprolol 50 mg b.i.d. and we will also start the patient on amiodarone. MMODL / IJN: [id number] /
[2019-11-06] MEDS: METOPROLOL TARTRATE 25 MG TAB PO SCH ×3 (13:22→21:26)
[2019-11-06 14:24] VITALS: BMI 28.6
[2019-11-06 16:55] LABS: Glucose,Whole Blood 267 mg/dL (75-99)
[2019-11-06] MEDS: AMIODARONE 300 MG in DEXTROSE 5% IN WATER 250 ML IV SCH ×2 (18:25)
[2019-11-06 20:38] LABS: Glucose,Whole Blood 394 mg/dL (75-99)
[2019-11-06] MEDS: INSULIN DETEMIR (LEVEMIR) 100 UNIT/ML SYR SQ SCH (21:27)
[2019-11-07] MEDS: AMIODARONE 300 MG in DEXTROSE 5% IN WATER 250 ML IV SCH ×2 (05:06)
[2019-11-07 06:11] LABS: Basophils % (A) 0 %; Eosinophils # (A) 0.1 k/uL (0-0.7); Eosinophils % (A) 2 %; HCT 22.2 % (39.0-53.0); Hypochromasia Slight; Lymphocytes % (A) 18 %; MCH 30.4 pg (25.0-35.0); MCHC 31.6 g/dL (31.0-37.0); MCV 96.3 fL (80.0-100.0); Mean Platelet Volume 11.6; Monocytes # (A) 0.5 k/uL (0-1.0); Monocytes % (A) 9 %; Neutrophils # (A) 3.5 k/uL (1.3-7.7); Neutrophils % (A) 67 %; Platelet Count 142 k/uL (150-450); RBC 2.31 m/uL (4.30-5.90); RDW 14.7 % (11.5-15.5); WBC 5.2 k/uL (3.8-10.6)
[2019-11-07 06:43] LABS: Glucose,Whole Blood 208 mg/dL (75-99)
[2019-11-07] MEDS: INSULIN ASPART (NovoLOG) 100 UNIT/ML VIAL SQ SCH ×7 (06:45→21:47)
[2019-11-07] MEDS: PANTOPRAZOLE 40 MG TABLET PO SCH (06:46)
[2019-11-07] MEDS: SODIUM CHLORIDE 0.9% 1,000 ML IV SCH ×2 (06:49→21:56)
[2019-11-07] MEDS ORDERED: ASPIRIN 81 MG PO SCH (09:00)
[2019-11-07] MEDS: LINAGLIPTIN 5 MG TABLET PO SCH (09:35)
[2019-11-07] MEDS: APIXABAN 5 MG TAB PO SCH (09:35)
[2019-11-07] MEDS: ATORVASTATIN 80 MG TAB PO SCH (09:35)
[2019-11-07] MEDS: FENOFIBRATE 160 MG TAB PO SCH (09:35)
[2019-11-07] MEDS: FERROUS SULFATE 325 MG TAB PO SCH ×2 (09:35→21:45)
[2019-11-07] MEDS: METOPROLOL TARTRATE 25 MG TAB PO SCH ×5 (09:35→21:55)
[2019-11-07] MEDS: EZETIMIBE 10 MG TAB PO SCH (09:36)
[2019-11-07 10:24] LABS: Folate, Serum 6.1 ng/mL
[2019-11-07 11:53] LABS: Glucose,Whole Blood 250 mg/dL (75-99)
--- NOTE | 2019-11-07 12:02 | P.PN ---
Subjective Progress Note Date: 11/07/19 This is an 79-year-old gentleman who follows regularly in the office with Dr. VC London. He has a history of diabetes, hypertension, chronic renal failure, significant peripheral vascular disease, prior history of AICD, TAVR and stenting.he presented to the hospital with symptoms of syncope, was seen in consultation by Dr. VC London. Patient had a wide complex tachycardia yesterday, it could be ventricular tachycardia versus atrial fibrillation, the device was interrogated by [facility] last evening we are awaiting a call from them. He has had no further episodes of any wide complex tachycardia on the monitor. We will put him on oral amiodarone if it appears to be ventricular tachycardia. He is currently on the IV amiodarone at this time. Hemodynamically today he is stable, feels well overall and is quite eager to be discharged home. Objective - Vital Signs Vital signs: Vital Signs Temp 97.5 F L 11/07/19 04:00 Pulse 78 11/07/19 04:00 Resp 18 11/07/19 04:00 BP 128/60 11/07/19 04:00 Pulse Ox 98 11/07/19 04:00 Intake & Output 11/06/19 11/07/19 11/07/19 18:59 06:59 18:59 Intake Total 1320 1250 240 Balance 1320 1250 240 Weight 95.9 kg 95.7 kg Intake: IV 600 Sodium Chloride 0.9% 1, 600 000 ml @ 50 mls/hr IV . Q20H [facility] Rx#:[id number] Intake, IV Titration 250 Amount Amiodarone 300 mg In 250 Dextrose 5% in Water 250 ml @ 0.5 MG/MIN 25 mls/hr IV .Q10H [facility] Rx#: [id number] Oral 720 1000 240 Other: Voiding Method Toilet # Voids 2 5 - Exam PHYSICAL EXAMINATION: GENERAL:79-year-old gentleman in no acute distress at the time of my examination HEENT: Head is atraumatic, normocephalic. Pupils equal, round. Sclera anicteri c. Conjunctiva are clear. Mucous membranes of the mouth are moist. Neck is supple. There is no elevated jugular venous pressure.no carotid bruit is heard. HEART EXAMINATION: [Heart S1, S2 normal. No murmur or gallop heard.] CHEST EXAMINATION:[ Lungs are clear to auscultation and precussion. No chest wall tenderness is noted on palpation or with deep breathing.] ABDOMEN: [ Soft, nontender. Bowel sounds are heard. No organomegaly noted]. EXTREMITIES:[ 2+ peripheral pulses with no evidence of peripheral edema and no calf tenderness noted]. NEUROLOGIC [patient is awake, alert and oriented X3] . - Labs CBC & Chem 7: 11/07/19 05:49 11/06/19 05:14 Labs: Abnormal Lab Results - Last 24 Hours (Table) 11/06/19 11/06/19 11/06/19 Range/Units 11:33 16:53 20:36 RBC (4.30-5.90) m/uL Hgb (13.0-17.5) gm/dL Hct (39.0-53.0) % Plt Count (150-450) k/uL POC Glucose (mg/dL) 250 H 267 H 394 H (75-99) mg/dL 11/07/19 11/07/19 Range/Units 05:49 06:41 RBC 2.31 L (4.30-5.90) m/uL Hgb 7.0 L (13.0-17.5) gm/dL Hct 22.2 L (39.0-53.0) % Plt Count 142 L (150-450) k/uL POC Glucose (mg/dL) 208 H (75-99) mg/dL Assessment and Plan Plan: assessment and plan #1 syncope, likely secondary to hypovolemia #2 acute on chronic kidney disease #3 diabetes #4 hypertension #5 hyperlipidemia #6 coronary artery disease with prior stenting #7 history of TAVR #8 history of AICD Plan Patient's device was interrogated yesterday, we await a call from [facility], patient had a wide complex tachycardia yesterday, if it appears that it was ventricular tachycardia patient will be continued on oral Amio, otherwise we manpreet l discontinue it. Follow-up appointment in the office with Dr. London. DNP note has been reviewed, I agree with a documented findings and plan of care. Patient was seen and examined.
[2019-11-07] MEDS ORDERED: FUROSEMIDE 10 MG/ML 2 ML VIAL IV STA (13:16)
--- NOTE | 2019-11-07 13:18 | CDI ---
Documentation Clarification Form Date: 11/07/2019 1:16:27 PM From: Pili Oscar RN, CCDS Admit Date: 11/06/2019 12:36:00 PM Patient Name: Christiano Kaye Visit Number: [id number] ATTENTION: The Clinical Documentation Specialists (CDI) and [facility] Coding Staff appreciate your assistance in clarifying documentation. Please respond to the clarification below the line at the bottom and electronically sign. The CDI & [facility] Coding staff will review the response and follow-up if needed. Please note: Queries are made part of the Legal Health Record. If you have any questions, please contact the author of this message via ITS. Dr. Saba Sheet History/Risk Factors: Med noncompliance, DM2, HTN, CAD, GIB Clinical Indicators: 11/07 Attending progress note: "acute on chronic kidney disease." Current BUN: 48/40/28 CR: 2.16/1.63/1.28 GFR: 28/39/53 09/12 Patients Baseline BUN/CR/GFR: 68/2.2/27.3 Treatment: 2.5 L IVF Bolus In order to capture the severity of condition, please clarify if the condition signifies: CKD Stage 1 (GFR > 90) CKD Stage 2 (GFR 60-89) CKD Stage 3 (GFR 30-59) CKD Stage 4 (GFR 15-29) CKD Stage 5 (GFR <15) ESRD Other, please specify Unable to determine (Last Revision: February 2018) Dx: CKD, stage II MTDD
--- NOTE | 2019-11-07 15:31 | P.PN ---
Subjective Progress Note Date: 11/07/19 Principal diagnosis: This is a pleasant 7 years old male with past medical history of diabetes mellitus, hypertension, hyperlipidemia, coronary artery disease status post cardiac cath and stent placement status post AICD. GI bleed status post EGD showing arteriovenous malformation,skin cancer, prostate cancer status post radiotherapy and laser therapy, GERD. Patient presents with syncope. pt was going to the restroom when he felt dizzy, nauseated , and shortly after that he passed out for one or two minutes with no seizure like activity , no urine or bowel incontinance, he woke up shortly after that , they called ambulance for him and on the way to the emergency room he passed out again as per EMS. pt is diabetic and he uses Novolin N 10 U with meal and long acting insulin 65 U at bed time provided for him by his pcp as free sample , but he stopped providing them for the last one month , he contacted his pcp who asked him just to wait. pt was complaining from polyyrea , polydipsia and generalized weakness, last month he checked his BP with his pcp office and it was 106/66 which surprised the as his usual systolic BP is in the 120-130 range, but his pcp did nothing about it. on admission patient was hypotensive with a blood pressure 86/39, was bradycard ic with heart rate of 61-64, afebrile,EKG showing sinus rhythm with fusion complex. Chest x-ray: No acute process.CBC showing hemoglobin of 9.2. In 08/2019 was 8.9. INR is 1.0. Potassium 5.5, creatinine 2.16, creatinine in 08/2019 was 2.2, 6 months ago it was 1.2.troponin is negative. Magnesium is 2.2, liver enzymes not elevated. in the emergency room patient received 2 L of IV fluids 11/05/2019 patient is awake and alert, he denies chest pain or dyspnea. No dizziness, no more syncope or presyncope. Patient feels he is improving.vitals are stable and his blood pressure is 87/49 and 101/51.his creatinine is improved down to 1.6, sugar is better controlled at 189. His hemoglobin is 8.7. Metoprolol is on hold, while continue on home saline at 75 mL/h, his Levemir dose was increased to 40 units at bedtime and 10 units of short acting insulin with meals plus linagliptin 5 mg daily. 11/06/2019 Patient is awake and alert and he is improving. Denies dyspnea or chest pain. His blood pressure is improved today to 125/58. And his sugar is better controlled. However patient today has an episode of V. tach. We going to interrogate his AICD. Also his metoprolol was held on admission due to hypertension we'll keep monitoring for now. Creatinine is improved to 1.2 which is close to his baseline. Hemoglobin A1c is 9.5% for uncontrolled diabetes. Vitamin B12 is pending Continue with normal saline. Discussed with staff to consult social work msw to ensure he can afford his medication including the lung acting insulin. 11/07/2019 Patient is sitting up in bed in no acute distress with no acute overnight issues. Cardiology is following. The AICD was interrogated and awaiting report from [facility]. IV amiodarone was discontinued. Blood sugars are elevated and being monitored closely. Hemoglobin today is 7.0 and will be receiving 1 unit of PRBCs. GI was consulted and is currently pending at this time. Patient denies any active bleeding noted and has been having normal bowel movements. Review of Systems: Cardiovascular: No reports of chest pain or palpitations Respiratory: No reports of shortness of breath or cough GI: No reports of nausea, vomiting, or diarrhea : No reports of dysuria or retention Active Medications Atorvastatin Calcium (Lipitor) 80 mg PO DAILY [facility] Last Admin: 11/07/19 09:35 Dose: 80 mg Documented by: Ezetimibe (Zetia) 10 mg PO DAILY [facility] Last Admin: 11/07/19 09:36 Dose: 10 mg Documented by: Fenofibrate (Lofibra) 160 mg PO DAILY [facility] Last Admin: 11/07/19 09:35 Dose: 160 mg Documented by: Ferrous Sulfate (Feosol) 325 mg PO BID [facility] Last Admin: 11/07/19 09:35 Dose: 325 mg Documented by: Sodium Chloride (Saline 0.9%) 1,000 mls @ 50 mls/hr IV .Q20H [facility] Last Admin: 11/07/19 06:49 Dose: 50 mls/hr Documented by: Insulin Aspart (Novolog) 10 unit SQ AC-TID [facility] Last Admin: 11/07/19 12:17 Dose: 10 unit Documented by: Insulin Aspart (Novolog) 0 unit SQ ACHS [facility]; Protocol Last Admin: 11/07/19 12:17 Dose: 4 unit Documented by: Insulin Detemir (Levemir) 45 unit SQ HS [facility] Last Admin: 11/06/19 21:27 Dose: 45 unit Documented by: Linagliptin (Tradjenta) 5 mg PO DAILY [facility] Last Admin: 11/07/19 09:35 Dose: 5 mg Documented by: Metoprolol Tartrate (Lopressor) 25 mg PO QID [facility] Last Admin: 11/07/19 09:35 Dose: 25 mg Documented by: Nitroglycerin (Nitrostat) 0.4 mg SUBLINGUAL Q5M PRN PRN Reason: Chest Pain Pantoprazole Sodium (Protonix) 40 mg PO AC-BRKFST [facility] Last Admin: 11/07/19 06:46 Dose: 40 mg Documented by: Objective - Vital Signs Vital signs: Vital Signs Temp 97.5 F L 11/07/19 04:00 Pulse 78 11/07/19 04:00 Resp 18 11/07/19 04:00 BP 128/60 11/07/19 04:00 Pulse Ox 98 11/07/19 04:00 Intake & Output 11/06/19 11/07/19 11/07/19 18:59 06:59 18:59 Intake Total 1320 1250 420 Balance 1320 1250 420 Weight 95.9 kg 95.7 kg Intake: IV 600 Sodium Chloride 0.9% 1, 600 000 ml @ 50 mls/hr IV . Q20H [facility] Rx#:[id number] Intake, IV Titration 250 Amount Amiodarone 300 mg In 250 Dextrose 5% in Water 250 ml @ 0.5 MG/MIN 25 mls/hr IV .Q10H [facility] Rx#: [id number] Oral 720 1000 420 Other: Voiding Method Toilet # Voids 2 5 - Exam GENERAL: The patient is alert and oriented x3, not in any acute distress. Well developed, well nourished. Temp is 97.5F, pulse is 78, respirations are 18, blood pressure is 128/60, oxygen saturation is 98% on room air. HEENT: Pupils are round and equally reacting to light. EOMI. No scleral icterus. No conjunctival pallor. Normocephalic, atraumatic. No pharyngeal erythema. No thyromegaly. CARDIOVASCULAR: S1 and S2 present. No murmurs, rubs, or gallops. PULMONARY: Chest is clear to auscultation, no wheezing or crackles. ABDOMEN: Soft, nontender, nondistended, normoactive bowel sounds. No palpable organomegaly. MUSCULOSKELETAL: No joint swelling or deformity. EXTREMITIES: No cyanosis, clubbing, or pedal edema. NEUROLOGICAL: Gross neurological examination did not reveal any focal deficits. SKIN: No rashes. No petechiae. Skin is pale - Labs CBC & Chem 7: 11/07/19 05:49 11/06/19 05:14 Labs: Abnormal Lab Results - Last 24 Hours (Table) 11/04/19 11/06/19 11/06/19 Range/Units 14:07 16:53 20:36 RBC (4.30-5.90) m/uL Hgb (13.0-17.5) gm/dL Hct (39.0-53.0) % Plt Count (150-450) k/uL POC Glucose (mg/dL) 267 H 394 H (75-99) mg/dL Crossmatch See Detail 11/07/19 11/07/19 11/07/19 Range/Units 05:49 06:41 11:52 RBC 2.31 L (4.30-5.90) m/uL Hgb 7.0 L (13.0-17.5) gm/dL Hct 22.2 L (39.0-53.0) % Plt Count 142 L (150-450) k/uL POC Glucose (mg/dL) 208 H 250 H (75-99) mg/dL Crossmatch Assessment and Plan Assessment: syncope, mostly related to hypovolemia Hypotension and bradycardia hypovolemia and severe dehydration Acute on chronic kidney disease non-compliance to medication abnormal EKG with fusion complexes and low voltage. elevated glucose at 338 on admission, suspicious for hyperglycemic nonketotic syndrome Diabetes mellitus with hyperglycemia, uncontrolled Hypertension Hyperlipidemia generalized weakness history of coronary artery disease status post cardiac cath and stent placement status post AICD history of GI bleed status post EGD showing arteriovenous malformation, secondary to cecal AVM in 2014, antral gastritis noted on EGD in 2017 prostate cancer status post radiotherapy and laser therapy GERD History of skin cancer DVT prophylaxis: Subcutaneous heparin GI prophylaxis: Pepcid Plan: Recommend continue current medications, management, and symptomatic treatment. Cardiology is following. Given patient's past history of GI bleed, gastroenterology was consulted. Hemoglobin today is 7.0 and will transfuse 1 unit of packed red blood cells. Patients IV amiodarone was discontinued. Oral Lopressor was resumed. AICD was interrogated yesterday and awaiting callback from company. Will repeat a.m. labs. Due to multiple complex medical issues prognosis is guarded. Further recommendations to follow. When talking with the patient about his plan upon discharge, he would like to return home with his .
[2019-11-07 17:23] LABS: Glucose,Whole Blood 280 mg/dL (75-99)
[2019-11-07 21:40] LABS: Glucose,Whole Blood 265 mg/dL (75-99)
[2019-11-07] MEDS: INSULIN DETEMIR (LEVEMIR) 100 UNIT/ML SYR SQ SCH (21:47)
--- NOTE | 2019-11-07 22:30 | CONS ---
CONSULTATION DATE OF SERVICE: November 07, 2019. REQUESTING PHYSICIAN: Dr. Ventura. REASON FOR CONSULTATION: Severe symptomatic anemia. HISTORY OF PRESENT ILLNESS: The patient is an 79-year-old pleasant white male with history of diabetes mellitus, hypertension, coronary artery disease, and peripheral vascular disease status post AICD placement, came into the hospital complaining of some generalized weakness and dizziness. Apparently, he had an episode of near-syncope at home. Came to the emergency room and was subsequently noted to have hemoglobin 7 g/dL and hence we are consulted in regards to this issue. He denies any abdominal pain. He reports no nausea, vomiting. Denies any chest pain. His initial hemoglobin was 9.2 and yesterday dropped to 8.7 and today it is 7 g/dL. He denies any black tarry stools. He reports no nausea, vomiting, or abdominal pain. He did have an upper endoscopy done in October 2015 for an acute upper GI bleed which revealed some gastritis. His last colonoscopy was in 2014 that showed nonbleeding arteriovenous malformation in the cecum that was cauterized. PAST MEDICAL HISTORY: Significant for hypertension, hyperlipidemia, and coronary artery disease, diabetes mellitus, gastroesophageal reflux disease and peripheral vascular disease. PAST SURGICAL HISTORY: History of prostate cancer, radiation therapy, cardiac valve replacement, AICD implantation, cardiac catheterization with stent placement in the past, tonsillectomy, basal cell carcinoma, EGD and colonoscopy as mentioned above. MEDICATIONS: At home include: Protonix, Toprol, Eliquis, Lasix, Novolin, Zestril, Spironolactone, Januvia. ALLERGIES: BISMUTH. SOCIAL HISTORY: Former smoker. No alcohol use. FAMILY HISTORY: Father had coronary artery disease and diabetes mellitus. Mother unremarkable. REVIEW OF SYSTEMS: CARDIOPULMONARY: He denies any chest pain or shortness of breath. Genitourinary: No dysuria or hematuria. MUSCULOSKELETAL: Unremarkable. SKIN: Unremarkable. ENDOCRINE: Unremarkable. PSYCHIATRIC: Unremarkable. NEUROLOGICAL: Unremarkable. ENT/VISION: Unremarkable. CONSTITUTIONAL: No recent weight loss. No fevers, chills or night sweats. EXAMINATION: He appears comfortable, no apparent distress. Vital signs stable. Blood pressure is 128/60, pulse rate 78. The temperature 97.5. HEENT: Unremarkable. Conjunctivae pink. Sclerae anicteric. Oral cavity no lesions. NECK: No JVD or lymph node enlargement. CHEST: Clear to auscultation. HEART: Regular rate and rhythm. ABDOMEN: Soft. Bowel sounds are positive. No organomegaly. EXTREMITIES: No pedal edema. SKIN no rashes. NEUROLOGIC: Alert and oriented x3. No focal deficits. LABS: Labs done at the time of admission to the hospital: WBC was a 5.9, hemoglobin 9.2. Today, hemoglobin is 7 g/dL. WBC 5.2, platelets 142. Iron was 94, TIBC 489, iron saturation 19%. BUN 28 and creatinine 1.28. IMPRESSION: 1. Severe symptomatic anemia with a hemoglobin of 7 g/dL. Clinically does not have any evidence of active ongoing bleeding. Stool Hemoccult is still pending. He did have an EGD and colonoscopy in the past. The last upper endoscopy in October of 2017 showed gastritis and colonoscopy in 2014 showed nonbleeding arteriovenous malformation in the cecum that was cauterized. The patient has atrial fibrillation on Eliquis, which he received his last dose today. Currently on hold. 2. History of atrial fibrillation on Eliquis, currently on hold. 3. Near episode of syncope. Cardiology following the patient closely. 4. History of AICD placement. RECOMMENDATIONS: 1. Monitor CBC on a daily basis. 2. Continue to hold Eliquis. 3. We will consider proceeding with an EGD and colonoscopy on Thursday as part of investigation of anemia. Discussed with the patient. He is agreeable. Thank you for this consultation. MMODL / IJN: [id number] /
[2019-11-08 06:40] LABS: Calcium 8.9 mg/dL (8.4-10.2); Potassium 4.8 mmol/L (3.5-5.1)
[2019-11-08 06:52] LABS: Glucose,Whole Blood 184 mg/dL (75-99)
[2019-11-08] MEDS: INSULIN ASPART (NovoLOG) 100 UNIT/ML VIAL SQ SCH ×7 (07:07→22:16)
[2019-11-08] MEDS: PANTOPRAZOLE 40 MG TABLET PO SCH (07:08)
[2019-11-08 07:36] LABS: Anisocytosis Slight; HCT 24.8 % (39.0-53.0); Hypochromasia Slight; MCH 32.9 pg (25.0-35.0); MCHC 34.8 g/dL (31.0-37.0); MCV 94.3 fL (80.0-100.0); Mean Platelet Volume 11.1; Platelet Count 158 k/uL (150-450); Poikilocytosis Slight; RBC 2.63 m/uL (4.30-5.90); RDW 16.4 % (11.5-15.5); WBC 7.2 k/uL (3.8-10.6)
[2019-11-08 07:37] LABS: HGB 8.6 gm/dL (13.0-17.5)
[2019-11-08 08:06] LABS: Basophils # (M) 0.14 k/uL (0-0.2); Eosinophils # (M) 0.07 k/uL (0-0.7); Lymphocytes # (M) 0.94 k/uL (1.0-4.8); Monocytes # (M) 0.43 k/uL (0-1.0); Neutrophils # (M) 5.62 k/uL (1.3-7.7); Neutrophils % (M) 78 %; Nucleated Red Blood Cells 0 /100 WBC (0-0); Total Cells Counted 100
[2019-11-08 08:08] LABS: Large Platelets Present
[2019-11-08] MEDS: FERROUS SULFATE 325 MG TAB PO SCH (10:20)
[2019-11-08] MEDS: EZETIMIBE 10 MG TAB PO SCH (10:20)
[2019-11-08] MEDS: ATORVASTATIN 80 MG TAB PO SCH (10:20)
[2019-11-08] MEDS: METOPROLOL TARTRATE 25 MG TAB PO SCH ×3 (10:20→22:16)
[2019-11-08] MEDS: LINAGLIPTIN 5 MG TABLET PO SCH (10:20)
[2019-11-08] MEDS: FENOFIBRATE 160 MG TAB PO SCH (10:20)
[2019-11-08 11:57] LABS: Glucose,Whole Blood 158 mg/dL (75-99)
--- NOTE | 2019-11-08 12:46 | P.PN ---
Subjective Progress Note Date: 11/08/19 This is an 79-year-old gentleman who follows regularly in the office with Dr. VC London. He has a history of diabetes, hypertension, chronic renal failure, significant peripheral vascular disease, prior history of AICD, TAVR and stenting.he presented to the hospital with symptoms of syncope, was seen in consultation by Dr. VC London. Patient had a wide complex tachycardia yesterday, it could be ventricular tachycardia versus atrial fibrillation, the device was interrogated by [facility] last evening we are awaiting a call from them. He has had no further episodes of any wide complex tachycardia on the monitor. We will put him on oral amiodarone if it appears to be ventricular tachycardia. He is currently on the IV amiodarone at this time. Hemodynamically today he is stable, feels well overall and is quite eager to be discharged home. 11/08/2019 Patient seen and examined this morning, he did receive one unit of packed red blood cells yesterday.his hemoglobin this morning is 8.6. Sodium 135, potassium 4.8, BUN 29 and creatinine 1.6.Eliquis is on hold, patient will undergo EGD and colonoscopy tomorrow. Objective - Vital Signs Vital signs: Vital Signs Temp 98 F 11/08/19 04:00 Pulse 90 11/08/19 04:00 Resp 18 11/08/19 04:00 BP 124/60 11/08/19 04:00 Pulse Ox 98 11/08/19 04:00 Intake & Output 11/07/19 11/08/19 11/08/19 18:59 06:59 18:59 Intake Total 1070 1223 Balance 1070 1223 Weight 95.3 kg Intake: Oral 1070 600 Blood Product 0 623 Rc As-1 Unit 0 310 [id number] Other: # Voids 4 # Bowel Movements 1 - Exam PHYSICAL EXAMINATION: GENERAL:79-year-old gentleman in no acute distress at the time of my examination HEENT: Head is atraumatic, normocephalic. Pupils equal, round. Sclera anicteric. Conjunctiva are clear. Mucous membranes of the mouth are moist. Neck is supple. There is no elevated jugular venous pressure.no carotid bruit is heard. HEART EXAMINATION: [Heart S1, S2 normal. No murmur or gallop heard.] CHEST EXAMINATION:[ Lungs are clear to auscultation and precussion. No chest wall tenderness is noted on palpation or with deep breathing.] ABDOMEN: [ Soft, nontender. Bowel sounds are heard. No organomegaly noted]. EXTREMITIES:[ 2+ peripheral pulses with no evidence of peripheral edema and no calf tenderness noted]. NEUROLOGIC [patient is awake, alert and oriented X3] . - Labs CBC & Chem 7: 11/08/19 05:31 11/08/19 05:31 Labs: Abnormal Lab Results - Last 24 Hours (Table) 11/04/19 11/07/19 11/07/19 Range/Units 14:07 17:12 21:39 RBC (4.30-5.90) m/uL Hgb (13.0-17.5) gm/dL Hct (39.0-53.0) % RDW (11.5-15.5) % Lymphocytes # (Manual) (1.0-4.8) k/uL Sodium (137-145) mmol/L BUN (9-20) mg/dL Glucose (74-99) mg/dL POC Glucose (mg/dL) 280 H 265 H (75-99) mg/dL Crossmatch See Detail 11/08/19 11/08/19 11/08/19 Range/Units 05:31 05:31 06:50 RBC 2.63 L (4.30-5.90) m/uL Hgb 8.6 L D (13.0-17.5) gm/dL Hct 24.8 L (39.0-53.0) % RDW 16.4 H (11.5-15.5) % Lymphocytes # (Manual) 0.94 L (1.0-4.8) k/uL Sodium 135 L (137-145) mmol/L BUN 29 H (9-20) mg/dL Glucose 159 H (74-99) mg/dL POC Glucose (mg/dL) 184 H (75-99) mg/dL Crossmatch 11/08/19 Range/Units 11:56 RBC (4.30-5.90) m/uL Hgb (13.0-17.5) gm/dL Hct (39.0-53.0) % RDW (11.5-15.5) % Lymphocytes # (Manual) (1.0-4.8) k/uL Sodium (137-145) mmol/L BUN (9-20) mg/dL Glucose (74-99) mg/dL POC Glucose (mg/dL) 158 H (75-99) mg/dL Crossmatch Assessment and Plan Plan: assessment and plan #1 syncope, likely secondary to hypovolemia #2 acute on chronic kidney disease #3 diabetes #4 hypertension #5 hyperlipidemia #6 coronary artery disease with prior stenting #7 history of TAVR #8 history of AICD Plan patient is scheduled to undergo EGD and colonoscopy tomorrow. Eliquis this on hold. We will continue to follow. Interrogation of the patient's device did n ot reveal any ventricular tachycardia. DNP note has been reviewed, I agree with a documented findings and plan of care. Patient was seen and examined.
[2019-11-08 16:45] LABS: Glucose,Whole Blood 201 mg/dL (75-99)
[2019-11-08] MEDS ORDERED: PEG 3350-NA SULF,BICARB,CL/KCL 4,000 ML BOTTLE PO ONE (17:00)
--- NOTE | 2019-11-08 17:46 | PN ---
PROGRESS NOTE DATE OF SERVICE: 11/08/2019 This 79-year-old gentleman who was admitted with multiple medical issues, including syncope, probably secondary to hypovolemia. Patient also had hypotension bradycardia. The patient also had severe dehydration. Patient also has acute on chronic kidney disease with noncompliance of medications also. The patient was also being evaluated by Cardiology and the patient also has history of AICD. The EKG showed normal sinus rhythm and the patient had short runs of wide complex tachycardia versus atrial fibrillation. The patient is also treated with IV amiodarone. The patient's hemoglobin dropped to 7 yesterday, after 1 unit transfusion it was 8.6 today. Gastroenterology following the patient closely and recommending possible endoscopies, colonoscopy and esophagogastroduodenoscopy. Please note, the patient previously had AV malformation as well as gastritis during the previous endoscopies done couple of years ago. The creatinine meanwhile is 1.16 showing some improvement compared to 0.16 at the time of admission, indicating acute renal failure present on admission. Stool occult blood was positive. PAST MEDICAL HISTORY: Reviewed. REVIEW OF SYSTEMS: Cardio system as mentioned earlier. Respiratory: As mentioned earlier. Gastrointestinal: No nausea or vomiting. no dysuria or hematuria. CENTRAL NERVOUS SYSTEM: No numbness or weakness. CURRENT MEDICATIONS: Reviewed and include: 1. Lipitor 80 mg a day. 2. Zetia 10 mg p.o. daily. 3. Lofibra 160 mg p.o. daily. 4. Iron sulfate 320 mg b.i.d. 5. Levemir 45 units subcu q.h.s. 6. Tradjenta 5 mg p.o. 7. Lopressor 25 mg daily. 8. Nitrostat. 9. Protonix. PHYSICAL EXAM: Patient is alert, oriented x3. Pulse 90, blood pressure 124/60, respiration 18, temperature 98 degrees, pulse ox 98 percent on room air. HEENT: Conjunctivae pale. Oral mucosa moist. Neck is no JVD. No carotid bruit. Cardiovascular system: S1, S2 muffled. Occasional irregularities. Respiration: Breath sounds diminished in the bases. A few scattered rhonchi and crackles. ABDOMEN: Soft, nontender. Legs: No edema. No swelling. NERVOUS SYSTEM: Diffusely weak. LABS: WBC 7.2, hemoglobin is 8.2, sodium 135, potassium 4.8 and creatinine is 1.16. BUN is 29. ASSESSMENT: 1. Syncope, present on admission, possibly related to hypovolemia. 2. Acute blood loss anemia possibly acute on chronic gastrointestinal blood loss anemia. 3. Dehydration present on admission. 4. Acute on chronic kidney disease. 5. Cardiac arrhythmia, possibly wide-complex ventricular tachycardia versus atrial fibrillation. 6. Diabetes mellitus type 2. 7. Hypertension. 8. Hyperlipidemia. 9. Generalized weakness. 10.History of coronary artery disease/ stent. 11.Status post AICD. 12.History of AVM and gastrointestinal bleed in 2014. 13.History of antral gastritis, gastrointestinal bleed in EGD in 2016. 14.Prostate cancer status post radiotherapy, laser therapy. 15.History of gastroesophageal reflux disease. 16.History of skin cancer. 17.FULL CODE with instructions. RECOMMENDATIONS AND DISCUSSION: In this 79-year-old gentleman who presented with multiple complex medical issues. I recommend to continue current medications and hold off the Eliquis. Gastroenterology has recommended colonoscopy. We will follow the patient closely with Gastroenterology regarding colonoscopy and EGD. Otherwise hemoglobin is still low at 8.6, but however we will continue to monitor. As mentioned earlier, cardiology is also evaluating the patient and final determination of the cardiac cath does not show any ventricular arrhythmia. We will continue to monitor. Guarded prognosis. Further recommendations to follow. See orders for details. MMODL / IJN: [id number] /
--- NOTE | 2019-11-08 18:22 | PN ---
PROGRESS NOTE The patient is an 79-year-old pleasant white male admitted to hospital with fatigue, weakness, near-syncope, and was noted to have a hemoglobin of 7.1 g/dL. He received 1 unit of blood transfusion yesterday and hemoglobin today is 8.6 g/dL. He denies any GI bleeding. He has been having some dark colored stools for the last few weeks. He has been on Eliquis for atrial fibrillation, which has been on hold. He denies any symptoms today. PHYSICAL EXAMINATION: Appears comfortable, no apparent distress. VITAL SIGNS: Stable. Blood pressure 107/68, pulse 87, temperature 97.9. HEENT examination unremarkable. Conjunctivae pink. Sclerae anicteric. Oral cavity no lesions. NECK: No JVD or lymph node enlargement. CHEST: Clear to auscultation. HEART: Regular rate and rhythm. ABDOMEN: Soft. Bowel sounds are positive. No organomegaly. EXTREMITIES: No pedal edema. SKIN no rashes. NEUROLOGIC: Alert and oriented x3. No focal deficits. LABS: From today hemoglobin 10.6, WBC 7.2, platelets 158. Rest of the labs are within normal limits. IMPRESSION: 1. Severe symptomatic anemia and dark colored stools for the last few days duration status post one unit of blood transfusion. Hemoglobin today is 8.6 g/dL. 2. Atrial fibrillation on Eliquis, currently on hold. RECOMMENDATIONS: We will proceed with EGD and colonoscopy to evaluate anemia and possible GI bleed. The patient understands risks, benefits, and complications of the procedure. Continue to hold Eliquis for now. Further recommendations will follow based on the endoscopy results. Thank you for this consultation. MMODL / IJN: [id number] /
[2019-11-08] MEDS: SODIUM CHLORIDE 0.9% 1,000 ML IV SCH (20:55)
[2019-11-08] MEDS: INSULIN DETEMIR (LEVEMIR) 100 UNIT/ML SYR SQ SCH (22:10)
[2019-11-08 22:12] LABS: Glucose,Whole Blood 193 mg/dL (75-99)
[2019-11-09 06:08] LABS: Glucose,Whole Blood 169 mg/dL (75-99)
[2019-11-09] MEDS: INSULIN ASPART (NovoLOG) 100 UNIT/ML VIAL SQ SCH ×7 (06:11→20:16)
[2019-11-09] MEDS: PANTOPRAZOLE 40 MG TABLET PO SCH ×2 (06:12→08:58)
[2019-11-09] MEDS: ATORVASTATIN 80 MG TAB PO SCH (08:52)
[2019-11-09] MEDS: METOPROLOL TARTRATE 25 MG TAB PO SCH ×4 (08:52→21:08)
[2019-11-09] MEDS: EZETIMIBE 10 MG TAB PO SCH (08:52)
[2019-11-09] MEDS: LINAGLIPTIN 5 MG TABLET PO SCH (08:53)
[2019-11-09] MEDS: FENOFIBRATE 160 MG TAB PO SCH (08:53)
--- NOTE | 2019-11-09 09:11 | CDI ---
Documentation Clarification Form Date: 11/09/2019 09:02:11 AM From: Pili Oscar RN, CCDS Admit Date: 11/06/2019 12:36:00 PM Patient Name: Christiano Kaye Visit Number: [id number] ATTENTION: The Clinical Documentation Specialists (CDI) and [facility] Coding Staff appreciate your assistance in clarifying documentation. Please respond to the clarification below the line at the bottom and electronically sign. The CDI & [facility] Coding staff will review the response and follow-up if needed. Please note: Queries are made part of the Legal Health Record. If you have any questions, please contact the author of this message via ITS. Dr. Lucina London Atrial Fibrillation is documented in the H&P, progress notes and consults. History/Risk Factors: Dm, hyperlipidemia, HTN, [place], prostate disease, skin ca, vascular disorder Clinical Indicators: 11/08 Cardiology progress Note: "Patient had a wide complex tachycardia yesterday, it could be ventricular tachycardia versus atrial fibrillation, the device was interrogated by [facility] last evening we are awaiting a call from them." 11/08 GI progress note: "Atrial fibrillation on Eliquis, currently on hold." 11/08 Attending Progress note: "Cardiac arrhythmia, possibly wide-complex ventricular tachycardia versus atrial fibrillation." EKG: NSR Treatment: 2.5 L IVF bolus Iv Amio Gtt per protocol Eliquis 5 mg Po BID ASA 81 mg Po QD Consults: cardiology In your professional opinion, can you please clarify the type of Atrial Fibrillation, if known? Chronic/Permanent Paroxysmal Persistent Other, please specify Unable to determine (Last Revision: February 2018) MTDD
[2019-11-09 11:40] LABS: Glucose,Whole Blood 183 mg/dL (75-99)
[2019-11-09] MEDS: FERROUS SULFATE 325 MG TAB PO SCH (11:46)
[2019-11-09 13:57] LABS: Anisocytosis Slight; Basophils % (A) 0 %; Eosinophils # (A) 0.1 k/uL (0-0.7); Eosinophils % (A) 3 %; HCT 25.3 % (39.0-53.0); HGB 8.1 gm/dL (13.0-17.5); Hypochromasia Moderate; Lymphocytes # (A) 0.8 k/uL (1.0-4.8); Lymphocytes % (A) 15 %; MCH 30.4 pg (25.0-35.0); MCHC 32.1 g/dL (31.0-37.0); MCV 94.8 fL (80.0-100.0); Mean Platelet Volume 11.7; Monocytes # (A) 0.5 k/uL (0-1.0); Monocytes % (A) 9 %; Neutrophils # (A) 3.7 k/uL (1.3-7.7); Neutrophils % (A) 71 %; Platelet Count 166 k/uL (150-450); Poikilocytosis Slight; RBC 2.67 m/uL (4.30-5.90); RDW 16.7 % (11.5-15.5); WBC 5.2 k/uL (3.8-10.6)
[2019-11-09] MEDS ORDERED: PROPOFOL 10 MG/ML 20 ML VIAL IV ONE (14:17)
[2019-11-09] MEDS ORDERED: ETOMIDATE 2 MG/ML 10 ML VIAL ONE (14:17)
[2019-11-09] MEDS ORDERED: LIDOCAINE 1% INJ 10MG/ML (20 ML MDV) ONE (14:17)
[2019-11-09] MEDS ORDERED: IV FLUID CONTINUATION 1,000 ML IV ONE (14:20)
--- NOTE | 2019-11-09 14:28 | P.PN ---
Subjective Progress Note Date: 11/09/19 This is an 79-year-old gentleman who follows regularly in the office with Dr. VC London. He has a history of diabetes, hypertension, chronic renal failure, significant peripheral vascular disease, prior history of AICD, TAVR and stenting.he presented to the hospital with symptoms of syncope, was seen in consultation by Dr. VC London. Patient had a wide complex tachycardia yesterday, it could be ventricular tachycardia versus atrial fibrillation, the device was interrogated by [facility] last evening we are awaiting a call from them. He has had no further episodes of any wide complex tachycardia on the monitor. We will put him on oral amiodarone if it appears to be ventricular tachycardia. He is currently on the IV amiodarone at this time. Hemodynamically today he is stable, feels well overall and is quite eager to be discharged home. 11/08/2019 Patient seen and examined this morning, he did receive one unit of packed red blood cells yesterday.his hemoglobin this morning is 8.6. Sodium 135, potassium 4.8, BUN 29 and creatinine 1.6.Eliquis is on hold, patient will undergo EGD and colonoscopy tomorrow. 11/09/2019 Patient was seen and examined this morning, awaiting to go for his EGD and colonoscopy. Hemodynamically he is stable. Objective - Vital Signs Vital signs: Vital Signs Temp 97.5 F L 11/09/19 08:00 Pulse 90 11/09/19 12:00 Resp 20 11/09/19 12:00 BP 140/63 11/09/19 12:00 Pulse Ox 99 11/09/19 12:00 Intake & Output 11/08/19 11/09/19 11/09/19 18:59 06:59 18:59 Intake Total 320 3000 Balance 320 3000 Weight 95.9 kg Intake: Oral 320 3000 Other: Voiding Method Toilet # Voids 2 1 # Bowel Movements 1 2 - Exam PHYSICAL EXAMINATION: GENERAL:79-year-old gentleman in no acute distress at the time of my examination HEENT: Head is atraumatic, normocephalic. Pupils equal, round. Sclera anicteric. Conjunctiva are clear. Mucous membranes of the mouth are moist. Neck is supple. There is no elevated jugular venous pressure.no carotid bruit is heard. HEART EXAMINATION: [Heart S1, S2 normal. No murmur or gallop heard.] CHEST EXAMINATION:[ Lungs are clear to auscultation and precussion. No chest wall tenderness is noted on palpation or with deep breathing.] ABDOMEN: [ Soft, nontender. Bowel sounds are heard. No organomegaly noted]. EXTREMITIES:[ 2+ peripheral pulses with no evidence of peripheral edema and no calf tenderness noted]. NEUROLOGIC [patient is awake, alert and oriented X3] . - Labs CBC & Chem 7: 11/09/19 13:44 11/08/19 05:31 Labs: Abnormal Lab Results - Last 24 Hours (Table) 11/08/19 11/08/19 11/09/19 Range/Units 16:43 22:12 06:06 RBC (4.30-5.90) m/uL Hgb (13.0-17.5) gm/dL Hct (39.0-53.0) % RDW (11.5-15.5) % Lymphocytes # (1.0-4.8) k/uL POC Glucose (mg/dL) 201 H 193 H 169 H (75-99) mg/dL 11/09/19 11/09/19 Range/Units 11:39 13:44 RBC 2.67 L (4.30-5.90) m/uL Hgb 8.1 L (13.0-17.5) gm/dL Hct 25.3 L (39.0-53.0) % RDW 16.7 H (11.5-15.5) % Lymphocytes # 0.8 L (1.0-4.8) k/uL POC Glucose (mg/dL) 183 H (75-99) mg/dL Assessment and Plan Plan: assessment and plan #1 syncope, likely secondary to hypovolemia #2 acute on chronic kidney disease #3 diabetes #4 hypertension #5 hyperlipidemia #6 coronary artery disease with prior stenting #7 history of TAVR #8 history of AICD Plan patient is scheduled to undergo EGD and colonoscopy today. Eliquis this on hold. We will continue to follow. Interrogation of the patient's device did n ot reveal any ventricular tachycardia. DNP note has been reviewed, I agree with a documented findings and plan of care. Patient was seen and examined.
--- NOTE | 2019-11-09 15:14 | P.PCN ---
Date of Procedure: 11/09/19 Description of Procedure: Brief history: Patient is a pleasant scheduled for an elective upper endoscopy as well as colonoscopy as a part of evaluation of severe symptomatic anemia and melanotic stools. Procedure performed: Esophagogastroduodenoscopy with biopsy Colonoscopy with polypectomy Estimated blood loss: Minimal. Preoperative diagnosis: melena, symptomatic anemia [place]est[place] [facility] Procedure: After informed consent was obtained from the patient was brought into the endoscopy unit and IV sedation was administered by anesthesia under continuous monitoring. Initially upper endoscopy was done. The Olympus GF 190 video endoscope was inserted into the mouth and esophagus intubated without any difficulty and was gradually advanced into the stomach and duodenum and carefully examined. The bulb and second part of the duodenum appeared normal, biopsies taken. The scope was then withdrawn into the stomach adequately insufflated with air and upon careful examination the antrum and body, cardia and fundus appeared normal, with some mild scattered erythema in the antrum and body suggestive of mild gastritis with biopsies taken. The scope was then withdrawn into the esophagus. The GE junction was located at 42 cm to the incisors, with a small 1 cm hiatal hernia noted. It appeared regular with no erythema erosions or ulcerations. Rest of the esophagus appeared normal. Patient tolerated the procedure well. At this time the patient continued to remain sedation. Initial digital rectal examination was normal. Olympus CF 190 video colonoscope was then inserted into the rectum and gradually advanced to the cecum without any difficulty. Careful examination was performed as the scope was gradually being withdrawn. The prep was excellent. The cecum, ascending colon, transverse colon, descending colon, sigmoid colon and rectum appeared normal. A 4 mm transverse colon flat polyp on a fold was removed with cold forcep polypectomy. A diminutive 3 mm transverse colon polyp was removed with cold snare polypectomy. 2 small hepatic flexure polyps measuring 2 mm and 1 mm in size were removed with cold forceps polypectomy. Diminutive 2 mm splenic flexure polyp removed with cold forceps. Diminutive 2 mm descending colon polyp removed with cold forcep polypectomy. Retroflexion was performed in the rectum and no lesions were noted, moderate internal. Patient tolerated the procedure well. Impression: 1. Mild gastritis antrum and body biopsied. Duodenal biopsies. Small hiatal hernia. No active bleeding or old blood noted. 2. 6 diminutive to small polyps removed from the colon (please see body of report for location, technically size of polyp). No active bleeding or pathology to explain GI bleeding found in colon. Moderate internal hemorrhoids. Recommendations: Findings of this examination were discussed with the patient as well as nursing team. Okay to resume full liquid diet today. If no further bleeding okay to advance. If patient has further signs or symptoms of GI bleeding consider tagged red blood cell scan for further evaluation or video capsule endoscopy. At this time no further plans for endoscopic evaluation. Continue to monitor hemoglobin and hematocrit and transfuse as needed.
--- NOTE | 2019-11-09 15:59 | PN ---
PROGRESS NOTE DATE OF SERVICE: 11/09/2019 This 79-year-old gentleman who was admitted with syncope was also evaluated for GI bleed. The patient was on Eliquis. The patient had acute on chronic blood-loss anemia. Patient received one unit transfusion. EGD and colonoscopy are pending at this time by Dr. Mosley. No chest pain. No palpitations. No fever. PHYSICAL EXAMINATION: Alert and oriented x3. Pulse 96, blood pressure 119/53, respirations 16, temperature 97.5, pulse ox 100% on room air. HEENT: Conjunctivae pale. NECK: No jugular venous distention. CARDIOVASCULAR SYSTEM: S1, S2 muffled. RESPIRATORY SYSTEM: Breath sounds diminished at the bases. No rhonchi. No crackles. ABDOMEN: Soft, obese, non-tender. No mass palpable. LEGS: No edema. No swelling. NERVOUS SYSTEM: No focal deficit. LABS: Hemoglobin 8.1. Glucose noted. Yesterday it was 8.6. ASSESSMENT: 1. Syncope, present on admission, possibly related to hypovolemia. 2. Acute blood loss anemia, possibly acute on chronic gastrointestinal blood-loss anemia, status post transfusion. 3. Dehydration, present on admission. 4. Acute on chronic kidney disease. 5. Cardiac arrhythmia, possibly wide complex; no evidence of ventricular tachycardia per interrogation. 6. Diabetes mellitus, type 2. 7. Hypertension. 8. Hyperlipidemia. 9. Generalized weakness. 10.History of coronary artery disease with stent. 11.Status post automated implantable cardioverter defibrillator. 12.History of AVM and gastrointestinal bleed in 2014. 13.History of antral gastritis, gastrointestinal bleed and esophagogastroduodenoscopy in 2017. 14.Prostate cancer, status post radiotherapy and laser therapy. 15.History of gastroesophageal reflux disease. 16.History of skin cancer. 17.FULL CODE with instructions. RECOMMENDATIONS AND DISCUSSION: At this time I recommend to continue current medications, continue with symptomatic treatment. Will closely follow with Gastroenterology with a colonoscopy as well as EGD. Otherwise, repeat CBC in the morning. If the colonoscopy and EGD are unremarkable, the patient might be a candidate for restarting Eliquis and outpatient followup. We will continue to monitor. Prognosis guarded. Discussed with the patient, who understands and agrees. MMODL / IJN: [id number] /
[2019-11-09 16:54] LABS: Glucose,Whole Blood 176 mg/dL (75-99)
[2019-11-09] MEDS: SODIUM CHLORIDE 0.9% 1,000 ML IV SCH (18:08)
[2019-11-09 20:08] LABS: Glucose,Whole Blood 246 mg/dL (75-99)
[2019-11-09] MEDS: INSULIN DETEMIR (LEVEMIR) 100 UNIT/ML SYR SQ SCH (21:08)
[2019-11-10 06:02] LABS: Anisocytosis Slight; Basophils % (A) 1 %; Eosinophils # (A) 0.1 k/uL (0-0.7); Eosinophils % (A) 2 %; HCT 23.7 % (39.0-53.0); HGB 7.5 gm/dL (13.0-17.5); Hypochromasia Slight; Lymphocytes # (A) 0.7 k/uL (1.0-4.8); Lymphocytes % (A) 13 %; MCH 29.8 pg (25.0-35.0); MCHC 31.5 g/dL (31.0-37.0); MCV 94.6 fL (80.0-100.0); Mean Platelet Volume 10.6; Monocytes # (A) 0.5 k/uL (0-1.0); Monocytes % (A) 8 %; Neutrophils # (A) 3.9 k/uL (1.3-7.7); Neutrophils % (A) 73 %; Platelet Count 142 k/uL (150-450); Poikilocytosis Slight; RDW 16.5 % (11.5-15.5); WBC 5.4 k/uL (3.8-10.6)
[2019-11-10 06:27] LABS: Glucose,Whole Blood 125 mg/dL (75-99)
[2019-11-10] MEDS: INSULIN ASPART (NovoLOG) 100 UNIT/ML VIAL SQ SCH ×4 (06:32→12:01)
[2019-11-10] MEDS: PANTOPRAZOLE 40 MG TABLET PO SCH (07:13)
[2019-11-10] MEDS: FENOFIBRATE 160 MG TAB PO SCH (07:13)
[2019-11-10] MEDS: ATORVASTATIN 80 MG TAB PO SCH (07:13)
[2019-11-10] MEDS: LINAGLIPTIN 5 MG TABLET PO SCH (07:14)
[2019-11-10] MEDS: METOPROLOL TARTRATE 25 MG TAB PO SCH ×2 (07:14→12:01)
[2019-11-10] MEDS: EZETIMIBE 10 MG TAB PO SCH (07:19)
[2019-11-10 08:21] VITALS: RESP 18; TEMP 98
[2019-11-10] MEDS ORDERED: SODIUM FERRIC GLUCONAT-SUCROSE 125 MG in SODIUM CHLORIDE 0.9% 100 ML IVPB ONE (10:30)
[2019-11-10 11:40] LABS: Glucose,Whole Blood 192 mg/dL (75-99)
--- NOTE | 2019-11-10 11:44 | P.PN ---
Subjective Progress Note Date: 11/10/19 This is an 79-year-old gentleman who follows regularly in the office with Dr. VC London. He has a history of diabetes, hypertension, chronic renal failure, significant peripheral vascular disease, prior history of AICD, TAVR and stenting.he presented to the hospital with symptoms of syncope, was seen in consultation by Dr. VC London. Patient had a wide complex tachycardia yesterday, it could be ventricular tachycardia versus atrial fibrillation, the device was interrogated by [facility] last evening we are awaiting a call from them. He has had no further episodes of any wide complex tachycardia on the monitor. We will put him on oral amiodarone if it appears to be ventricular tachycardia. He is currently on the IV amiodarone at this time. Hemodynamically today he is stable, feels well overall and is quite eager to be discharged home. 11/08/2019 Patient seen and examined this morning, he did receive one unit of packed red blood cells yesterday.his hemoglobin this morning is 8.6. Sodium 135, potassium 4.8, BUN 29 and creatinine 1.6.Eliquis is on hold, patient will undergo EGD and colonoscopy tomorrow. 11/09/2019 Patient was seen and examined this morning, awaiting to go for his EGD and colonoscopy. Hemodynamically he is stable. 11/10/2019 patient was seen and examined this morning, overall feels well. He did have his EGD and colonoscopy performed yesterday.results showed mild gastritis, duodenal biopsies were done.also revealed several polyps which were removed from the colon.hemoglobin this morning 7.5. Patient is currently receiving an iron infusion. From cardiology's perspective, he may be able to be discharged home today to follow-up in the office post discharge we will resume his Eliquis at 2- 1/2 mg one tablet by mouth twice a day.the patient does have a history of paroxysmal atrial fibrillation. Objective - Vital Signs Vital signs: Vital Signs Temp 98.0 F 11/10/19 08:00 Pulse 90 11/10/19 08:00 Resp 18 11/10/19 08:00 BP 107/53 11/10/19 08:00 Pulse Ox 99 11/10/19 08:00 Intake & Output 11/09/19 11/10/19 11/10/19 18:59 06:59 18:59 Intake Total 150 400 222 Balance 150 400 222 Weight 94 kg Intake: IV 150 400 Sodium Chloride 0.9% 1, 400 000 ml @ 50 mls/hr IV . Q20H [facility] Rx#:[id number] Oral 222 Other: Voiding Method Toilet Toilet Toilet # Voids 1 1 # Bowel Movements 2 - Exam PHYSICAL EXAMINATION: GENERAL:79-year-old gentleman in no acute distress at the time of my examination HEENT: Head is atraumatic, normocephalic. Pupils equal, round. Sclera anicteric. Conjunctiva are clear. Mucous membranes of the mouth are moist. Neck is supple. There is no elevated jugular venous pressure.no carotid bruit is heard. HEART EXAMINATION: [Heart S1, S2 normal. No murmur or gallop heard.] CHEST EXAMINATION:[ Lungs are clear to auscultation and precussion. No chest wall tenderness is noted on palpation or with deep breathing.] ABDOMEN: [ Soft, nontender. Bowel sounds are heard. No organomegaly noted]. EXTREMITIES:[ 2+ peripheral pulses with no evidence of peripheral edema and no calf tenderness noted]. NEUROLOGIC [patient is awake, alert and oriented X3] . - Labs CBC & Chem 7: 11/10/19 05:37 11/08/19 05:31 Labs: Abnormal Lab Results - Last 24 Hours (Table) 11/09/19 11/09/19 11/09/19 Range/Units 11:39 13:44 16:52 RBC 2.67 L (4.30-5.90) m/uL Hgb 8.1 L (13.0-17.5) gm/dL Hct 25.3 L (39.0-53.0) % RDW 16.7 H (11.5-15.5) % Plt Count (150-450) k/uL Lymphocytes # 0.8 L (1.0-4.8) k/uL POC Glucose (mg/dL) 183 H 176 H (75-99) mg/dL 11/09/19 11/10/19 11/10/19 Range/Units 20:07 05:37 06:26 RBC 2.50 L (4.30-5.90) m/uL Hgb 7.5 L (13.0-17.5) gm/dL Hct 23.7 L (39.0-53.0) % RDW 16.5 H (11.5-15.5) % Plt Count 142 L (150-450) k/uL Lymphocytes # 0.7 L (1.0-4.8) k/uL POC Glucose (mg/dL) 246 H 125 H (75-99) mg/dL Assessment and Plan Plan: assessment and plan #1 syncope, likely secondary to hypovolemia #2 acute on chronic kidney disease #3 diabetes #4 hypertension #5 hyperlipidemia #6 coronary artery disease with prior stenting #7 history of TAVR #8 history of AICD #9 paroxysmal atrial fibrillation Plan from cardiology's perspective, patient may be discharged home once cleared by primary and GI service. We will resume his Eliquis at a lower dose of 2-1/2 mg one tablet by mouth twice a day. Follow-up appointment in the office post discharge. DNP note has been reviewed, I agree with a documented findings and plan of care. Patient was seen and examined.
[2019-11-10] MEDS: FERROUS SULFATE 325 MG TAB PO SCH (12:01)
[2019-11-10 12:20] VITALS: BP 119/55; PULSE 96
--- NOTE | 2019-11-10 13:46 | P.DS ---
Providers Date of admission: 11/06/19 12:36 Attending physician: Jayant Quiles MD Consults: 11/04/19 16:00 Consult Physician Urgent Consulting Provider: [facility] Consult Reason/Comments: syncope Do you want consulting provider notified?: Yes 11/07/19 12:06 Consult Physician Urgent Consulting Provider: Riki Gray Consult Reason/Comments: anemia Do you want consulting provider notified?: Yes Primary care physician: Lorenzo Larkin [facility] Hospital Course: 79-year-old pleasant gentleman came in because of syncopal episode found to have hypotension, his diuretic therapy was held and patient received IV fluids and patient was found to have very low hemoglobin although there is no evidence of acute GI bleed. Patient received packed red blood cell transfusion 1 unit patient underwent upper GI endoscopy which showed mild gastritis. Patient is already on proton pump inhibitor which was changed to twice a day for about a week to 10 days after that patient can resume his regular regimen. Patient appears to have had acute renal failure which improved. Patient is on low-dose of Lasix 20 mg and is also on Aldactone along with lisinopril. Patient had an EF of around 15-20% this is big for his aortic valve replacement and his EKG EF may have improved now patient was hypovolemic on admission and had acute renal failure because of these reasons I discontinued lisinopril as well as Lasix patient can continue Aldactone and this can be discontinued probably once he gets a repeat echocardiogram as an outpatient and if he is not having any issues with heart failure anymore. Patient need to follow closely with PCP and cardiology as an outpatient. Patient is on Eliquis for possible paroxysmal atrial fibrillation which will be resumed at a lower dose considering his age of 79 years and very low hemoglobin. I do not have any ferritin available unfortunately assuming that it's very low" and transfuse him a unit of IV iron although ferritin level will be ordered and patient will continue his oral iron. Patient will be discharged today. PHYSICAL EXAMINATION: GENERAL: The patient is alert and oriented x3, not in any acute distress. Well developed, well nourished. Does look pale HEENT: Pupils are round and equally reacting to light. EOMI. No scleral icterus. Does have conjunctival pallor. Normocephalic, atraumatic. No pharyngeal erythema. No thyromegaly. CARDIOVASCULAR: S1 and S2 present. No murmurs, rubs, or gallops. PULMONARY: Chest is clear to auscultation, no wheezing or crackles. ABDOMEN: Soft, nontender, nondistended, normoactive bowel sounds. No palpable organomegaly. MUSCULOSKELETAL: No joint swelling or deformity. EXTREMITIES: No cyanosis, clubbing, or pedal edema. NEUROLOGICAL: Gross neurological examination did not reveal any focal deficits. SKIN: No rashes. For other chronic medical problems hospitalization course please refer to dictation from Dr. Pinzon from yesterday Patient Condition at Discharge: Serious Plan - Discharge Summary New Discharge Prescriptions: New Apixaban [Eliquis] 2.5 mg PO BID tablet Continue Ferrous Sulfate [Iron (65 MG Elemental)] 325 mg PO BID Gemfibrozil [Lopid] 600 mg PO AC-BID Rosuvastatin Calcium 40 mg PO DAILY Spironolactone 25 mg PO DAILY Ezetimibe 10 mg PO DAILY Insulin Degludec [Tresiba] 65 units SQ DAILY sitaGLIPtin PHOSPHATE [Januvia] 50 mg PO DAILY INSULIN LISPRO (HumaLOG) [humaLOG] 10 units SQ AC-TID Pantoprazole Sodium [Protonix] 40 mg PO AC-BRKFST #30 tablet.dr Changed Metoprolol Succinate (ER) [Toprol XL] 100 mg PO DAILY #0 Discontinued Furosemide [Lasix] 20 mg PO DAILY Apixaban [Eliquis] 5 mg PO BID Lisinopril [Zestril] 10 mg PO DAILY Discharge Medication List Ferrous Sulfate [Iron (65 MG Elemental)] 325 mg PO BID 08/17/15 [History] Gemfibrozil [Lopid] 600 mg PO AC-BID 02/27/17 [History] Ezetimibe 10 mg PO DAILY 11/04/19 [History] Insulin Degludec [Tresiba] 65 units SQ DAILY 11/04/19 [History] Rosuvastatin Calcium 40 mg PO DAILY 11/04/19 [History] Spironolactone 25 mg PO DAILY 11/04/19 [History] sitaGLIPtin PHOSPHATE [Januvia] 50 mg PO DAILY 11/04/19 [History] INSULIN LISPRO (HumaLOG) [humaLOG] 10 units SQ AC-TID 11/07/19 [History] Apixaban [Eliquis] 2.5 mg PO BID tablet 11/10/19 [Rx] Metoprolol Succinate (ER) [Toprol XL] 100 mg PO DAILY #0 11/10/19 [Rx] Pantoprazole Sodium [Protonix] 40 mg PO SHAKA #30 tablet. 11/10/19 [Rx] Follow up Appointment(s)/Referral(s): Ivy Ventura MD [Primary Care Provider] - 11/09/19 10:30 am (Thursday) Matthew Coto MD [STAFF PHYSICIAN] - 11/21/19 4:15 pm (Thursday) Riki Gray MD [STAFF PHYSICIAN] - 12/13/19 4:15 pm Ambulatory/Diagnostic Orders: Complete Blood Count w/diff [LAB.AMB] Time Frame: 4 Days, Location: None Selected Patient Instructions/Handouts: *Surgery [facility] - (Anesthesia) Endoscopy Discharge Instructions, Hiatal Hernia (DC), Diet for Stomach Ulcers and Gastritis (ED), Iron Rich Diet (DC), Syncope (DC) Discharge Disposition: HOME SELF-CARE
[2019-11-10] MEDS ORDERED: APIXABAN 2.5 MG TABLET PO SCH (21:00)
[2019-11-10] MEDS ORDERED: APIXABAN 5 MG TAB PO SCH (21:00)
== END 2019-11-10 13:23 | disposition home or self-care (01) | DRG 312 ==
LOC: EC 14:00 → 3SCARD 16:00 → OBSVTOIN 11-06 12:36
PROVIDERS: ADMIT Internal Medicine; ATTEND Internal Medicine
PROC: 30233N1 Transfusion of Nonautologous Red Blood Cells into Peripheral Vein, Percutaneous Approach (ICD-10-PCS; 2019-11-07)
PROC: 4B02XTZ Measurement of Cardiac Defibrillator, External Approach (ICD-10-PCS; 2019-11-08)
PROC: 0DBL8ZX Excision of Transverse Colon, Via Natural or Artificial Opening Endoscopic, Diagnostic (ICD-10-PCS; 2019-11-09)
PROC: 0DB78ZX Excision of Stomach, Pylorus, Via Natural or Artificial Opening Endoscopic, Diagnostic (ICD-10-PCS; principal; 2019-11-09 12:55)
PROC: 0DBM8ZX Excision of Descending Colon, Via Natural or Artificial Opening Endoscopic, Diagnostic (ICD-10-PCS; 2019-11-09 12:55)
DX: I95.2 Hypotension due to drugs (principal); I47.2 Ventricular tachycardia; D62 Acute posthemorrhagic anemia; N17.9 Acute kidney failure, unspecified; T50.2X5A Adverse effect of carbonic-anhydrase inhibitors, benzothiadiazides and other diuretics, initial encounter; I48.0 Paroxysmal atrial fibrillation; K44.9 Diaphragmatic hernia without obstruction or gangrene; Z85.46 Personal history of malignant neoplasm of prostate; Z92.3 Personal history of irradiation; E11.22 Type 2 diabetes mellitus with diabetic chronic kidney disease; E11.51 Type 2 diabetes mellitus with diabetic peripheral angiopathy without gangrene; E11.65 Type 2 diabetes mellitus with hyperglycemia; E78.5 Hyperlipidemia, unspecified; E86.0 Dehydration; E86.1 Hypovolemia; I12.9 Hypertensive chronic kidney disease with stage 1 through stage 4 chronic kidney disease, or unspecified chronic kidney disease; I25.10 Atherosclerotic heart disease of native coronary artery without angina pectoris; I25.2 Old myocardial infarction; K29.70 Gastritis, unspecified, without bleeding; D12.4 Benign neoplasm of descending colon; D12.3 Benign neoplasm of transverse colon; K64.8 Other hemorrhoids; N18.2 Chronic kidney disease, stage 2 (mild); Z79.01 Long term (current) use of anticoagulants; Z79.4 Long term (current) use of insulin; Z79.82 Long term (current) use of aspirin; Z79.899 Other long term (current) drug therapy; Z82.49 Family history of ischemic heart disease and other diseases of the circulatory system; Z83.3 Family history of diabetes mellitus; Z85.820 Personal history of malignant melanoma of skin; Z87.891 Personal history of nicotine dependence; Z91.14 Patient's other noncompliance with medication regimen; Z95.2 Presence of prosthetic heart valve; Z95.5 Presence of coronary angioplasty implant and graft; Z95.810 Presence of automatic (implantable) cardiac defibrillator; Z88.8 Allergy status to other drugs, medicaments and biological substances
CPT/HCPCS: 36415; 43239; 45385; 71046; 80048; 80053; 80061; 82272; 82607; 82728; 82746; 83036; 83540; 83550; 83735; 84484; 85025; 85027; 85610; 85730; 86850; 86900; 86901; 86920; 88305; 94760; 99285

== ENCOUNTER → 2019-11-14 | Outpatient (CLI) | payer MEDICARE ==
[2019-11-14 10:23] LABS: Anisocytosis Slight; Basophils % (A) 1 %; Eosinophils # (A) 0.3 k/uL (0-0.7); Eosinophils % (A) 5 %; HCT 26.9 % (39.0-53.0); HGB 8.4 gm/dL (13.0-17.5); Hypochromasia Marked; Lymphocytes % (A) 18 %; MCH 30.4 pg (25.0-35.0); MCHC 31.2 g/dL (31.0-37.0); MCV 97.2 fL (80.0-100.0); Macrocytosis Slight; Mean Platelet Volume 10.8; Monocytes # (A) 0.6 k/uL (0-1.0); Monocytes % (A) 10 %; Neutrophils # (A) 3.5 k/uL (1.3-7.7); Neutrophils % (A) 63 %; Platelet Count 220 k/uL (150-450); Poikilocytosis Slight; RBC 2.76 m/uL (4.30-5.90); RDW 16.3 % (11.5-15.5); WBC 5.6 k/uL (3.8-10.6)
== END | disposition home or self-care (01) ==
LOC: LABWHC1 09:13
PROVIDERS: ATTEND Internal Medicine
DX: D64.9 Anemia, unspecified (principal)
CPT/HCPCS: 36415; 85025

== ENCOUNTER → 2020-03-29 | Outpatient (CLI) | payer MEDICARE ==
[2020-03-29 12:04] LABS: Basophils # (A) 0.1 k/uL (0-0.2); Basophils % (A) 1 %; Eosinophils # (A) 0.1 k/uL (0-0.7); Eosinophils % (A) 2 %; HCT 46.7 % (39.0-53.0); HGB 15.6 gm/dL (13.0-17.5); Lymphocytes # (A) 1.4 k/uL (1.0-4.8); Lymphocytes % (A) 25 %; MCH 30.2 pg (25.0-35.0); MCHC 33.3 g/dL (31.0-37.0); MCV 90.7 fL (80.0-100.0); Mean Platelet Volume 12.2; Monocytes # (A) 0.5 k/uL (0-1.0); Monocytes % (A) 9 %; Neutrophils # (A) 3.2 k/uL (1.3-7.7); Neutrophils % (A) 59 %; Platelet Count 144 k/uL (150-450); RBC 5.15 m/uL (4.30-5.90); RDW 13.7 % (11.5-15.5); WBC 5.4 k/uL (3.8-10.6)
[2020-03-29 12:10] LABS: Large Platelets Present
== END | disposition home or self-care (01) ==
LOC: LABWHC1 09:20
PROVIDERS: ATTEND Internal Medicine
DX: D50.9 Iron deficiency anemia, unspecified (principal)
CPT/HCPCS: 36415; 85025

== ENCOUNTER → 2020-06-25 | Outpatient (CLI) | payer MEDICARE ==
[2020-06-25 11:48] LABS: Basophils % (A) 1 %; Eosinophils # (A) 0.1 k/uL (0-0.7); Eosinophils % (A) 2 %; HCT 43.3 % (39.0-53.0); HGB 13.6 gm/dL (13.0-17.5); Lymphocytes # (A) 1.2 k/uL (1.0-4.8); Lymphocytes % (A) 20 %; MCH 28.8 pg (25.0-35.0); MCHC 31.5 g/dL (31.0-37.0); MCV 91.6 fL (80.0-100.0); Mean Platelet Volume 10.7; Monocytes # (A) 0.5 k/uL (0-1.0); Monocytes % (A) 9 %; Neutrophils # (A) 3.8 k/uL (1.3-7.7); Neutrophils % (A) 66 %; Platelet Count 175 k/uL (150-450); RBC 4.72 m/uL (4.30-5.90); RDW 14.9 % (11.5-15.5); WBC 5.7 k/uL (3.8-10.6)
[2020-06-25 17:28] LABS: Ferritin 24.2 ng/mL (22.0-322.0)
[2020-06-25 17:54] LABS: % Iron Saturation 10.98 (15.00-50.00); African American GFR (CKD) 54.6 (60.0-200.0); Albumin 4.7 g/dL (3.80-4.90); Albumin/Globulin Ratio 2.04 (1.60-3.17); Anion Gap 8.1 mmol/L (4.00-12.00); Bilirubin, Conjugated 0.2 mg/dL (0.20-0.40); Bilirubin,Unconjugated 0.2 mg/dL; Carbon Dioxide 22.9 mmol/L (21.6-31.8); Chol/HDL Ratio 4.71; Globulin 2.3 g/dL (1.6-3.3); Non-African American GFR(CKD) 47.1 (60.0-200.0); Potassium 5.2 mmol/L (3.5-5.5); Total Bilirubin 0.4 mg/dL (0.3-1.2)
[2020-06-25 19:35] LABS: Hemoglobin A1C 11.4 % (4.0-6.0)
== END | disposition home or self-care (01) ==
LOC: LABWHC1 08:38
PROVIDERS: ATTEND Internal Medicine
DX: D50.9 Iron deficiency anemia, unspecified (principal); I10 Essential (primary) hypertension; E11.9 Type 2 diabetes mellitus without complications; E78.5 Hyperlipidemia, unspecified
CPT/HCPCS: 36415; 80051; 80061; 80076; 82565; 82728; 83036; 83540; 83550; 84520; 85025

== ENCOUNTER → 2020-11-22 | Outpatient (CLI) | payer MEDICARE ==
[2020-11-22 09:30] LABS: HCT 43.6 % (39.0-53.0); HGB 14.4 gm/dL (13.0-17.5); MCH 29.5 pg (25.0-35.0); MCHC 33.1 g/dL (31.0-37.0); MCV 88.9 fL (80.0-100.0); Mean Platelet Volume 11.2; Platelet Count 150 k/uL (150-450); RDW 14.3 % (11.5-15.5)
[2020-11-22 11:22] LABS: Band Neutrophils % 1 %; Eosinophils # (M) 0.07 k/uL (0-0.7); Lymphocytes # (M) 2.59 k/uL (1.0-4.8); Monocytes # (M) 0.98 k/uL (0-1.0); Neutrophils % (M) 47 %; Nucleated Red Blood Cells 0 /100 WBC (0-0); Poikilocytosis (M) Present; Total Cells Counted 100
[2020-11-22 21:15] LABS: % Iron Saturation 17.02 (15.00-50.00); African American GFR (CKD) 49.9 (60.0-200.0); Albumin 4.7 g/dL (3.80-4.90); Albumin/Globulin Ratio 2.04 (1.60-3.17); Anion Gap 12.1 mmol/L (4.00-12.00); Calcium 9.4 mg/dL (8.7-10.3); Carbon Dioxide 21.9 mmol/L (21.6-31.8); Globulin 2.3 g/dL (1.6-3.3); Potassium 4.1 mmol/L (3.5-5.5); Total Bilirubin 0.3 mg/dL (0.2-1.2)
[2020-11-22 21:23] LABS: Ferritin 22.2 ng/mL (22.0-322.0)
[2020-11-22 22:46] LABS: Hemoglobin A1C 11.6 % (4.0-6.0)
== END | disposition home or self-care (01) ==
LOC: LABWHC1 08:09
PROVIDERS: ATTEND Internal Medicine
DX: D50.9 Iron deficiency anemia, unspecified (principal); E11.9 Type 2 diabetes mellitus without complications; I11.0 Hypertensive heart disease with heart failure; I50.9 Heart failure, unspecified; N28.9 Disorder of kidney and ureter, unspecified
CPT/HCPCS: 36415; 80053; 82728; 83036; 83540; 83550; 85025

== ENCOUNTER 2021-04-07 13:37 | Inpatient (IN) | payer MEDICARE ==
--- NOTE | 2021-04-07 14:02 | ED ---
General Adult HPI - General Chief complaint: Weakness Stated complaint: Weakness Time Seen by Provider: 04/07/21 13:58 Source: patient, EMS Mode of arrival: EMS Limitations: no limitations - History of Present Illness Initial comments: Patient presents to the ED by ambulance for evaluation. Patient states that his foot got "tangled in something" last night, causing him to trip and fall. Patient states that he landed on his right side, and he states that he has been having right-sided "rib pain" since then. Patient denies any other site of pain or injury. Patient also states that he has had a cough and congestion for the past 2 weeks, and he states that he tested positive for Covid on a home test yesterday. Patient admits to feeling generally weak. Patient denies fever or chills, head injury, LOC, headache, focal numbness/weakness/neuro deficit, neck/back/extremity pain, hemoptysis, dyspnea, palpitations, dizziness/lightheadedness, syncope, abdominal pain, nausea/vomiting/diarrhea, bloody or melanotic stool, dysuria or urinary symptoms, leg or calf swelling or pain, or any other symptoms or complaints. Patient is on Eliquis anticoa gulation therapy. - Related Data Home Medications Medication Instructions Recorded Confirmed Ferrous Sulfate [Iron (65 MG 325 mg PO Q48H 08/17/15 04/07/21 Elemental)] gemfibroziL [Lopid] 600 mg PO BID 02/27/17 04/07/21 Ezetimibe 10 mg PO DAILY 11/04/19 04/07/21 Rosuvastatin Calcium 40 mg PO DAILY 11/04/19 04/07/21 Spironolactone 25 mg PO DAILY 11/04/19 04/07/21 Amoxicillin 500 mg PO TID 04/07/21 04/07/21 Apixaban [Eliquis] 2.5 mg PO BID 04/07/21 04/07/21 Empagliflozin/Linagliptin 1 tab PO DAILY 04/07/21 04/07/21 [Glyxambi 10 mg-5 mg Tablet] Ferrous Sulfate [Feosol] 650 mg PO Q48H 04/07/21 04/07/21 INSULIN ASPART (NovoLOG) [NovoLOG 10 unit SQ AC-TID 04/07/21 04/07/21 (formulary)] Metoprolol Succinate (ER) [Toprol 200 mg PO DAILY 04/07/21 04/07/21 Xl] lisinopriL [Zestril] 1.25 mg PO DAILY 04/07/21 04/07/21 Previous Rx's Medication Instructions Recorded Furosemide [Lasix] 20 mg PO DAILY #30 tab 11/10/19 Pantoprazole Sodium [Protonix] 40 mg PO LAVONNE-LOUISE #30 tablet. 11/10/19 Allergies Allergy/AdvReac Type Severity Reaction Status Date / Time bismuth subsalicylate Allergy Severe ABD PAIN, Verified 04/07/21 16:41 [From Pepto-Bismol] N/V molasses Allergy Severe Nausea & Uncoded 04/07/21 13:43 Vomiting Review of Systems ROS Statement: Those systems with pertinent positive or pertinent negative responses have been documented in the HPI. ROS Other: All systems not noted in ROS Statement are negative. 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 HEART STENTS X3. Laser/Radiation Tx for Prosate CA. EXC Rt Upper Arm Melanoma, Basal Cell EXC FROM SCALP. PTCA 06/15/15, INDIRA 08/22/15. ABD AORTOGRAM W/ RUNOFF 12/10/15, EGD, colonoscopy with arteriovenous malformation. LEFT NECK BASAL CELL CA REMOVED Past Anesthesia/Blood Transfusion Reactions: No Reported Reaction Date of Last Stent Placement:: 1999 Type of Cardiac Device: AICD Device Placement Date:: 04/01/2016-[facility] [place]-(model [id number] pt) Past Psychological History: No Psychological Hx Reported Smoking Status: Never smoker Past Alcohol Use History: Rare Past Drug Use History: None Reported - Past Family History Father Family Medical History: Diabetes Mellitus, Myocardial Infarction ([place]) Additional Family Medical History / Comment(s): Father of a [place] at age 64yrs. Mother History Unknown: Yes Family Medical History: No Reported History Additional Family Medical History / Comment(s): Mother at age 68 yrs. General Exam Limitations: no limitations General appearance: alert, in no apparent distress Head exam: Present: atraumatic, normocephalic Eye exam: Present: normal appearance, PERRL, EOMI ENT exam: Present: mucous membranes moist Neck exam: Present: full ROM, other (Trachea is in midline). Absent: tenderness Respiratory exam: Present: normal lung sounds bilaterally, other (Mild right anterolateral chest wall tenderness; no ecchymosis, deformity or crepitation is appreciated). Absent: respiratory distress, wheezes, rales, rhonchi, stridor Cardiovascular Exam: Present: tachycardia, irregular rhythm, normal heart sounds, other (Normal radial pulses bilaterally) GI/Abdominal exam: Present: soft. Absent: distended, tenderness, guarding Extremities exam: Present: full ROM, other (Pelvis is stable and nontender; mild ecchymosis is noted over right elbow, but patient has no right elbow swelling or tenderness on examination, and he has full range of motion at his right elbow). Absent: tenderness, pedal edema, calf tenderness Back exam: Present: normal inspection. Absent: tenderness Neurological exam: Present: alert, oriented X3, CN II-XII intact. Absent: motor sensory deficit Psychiatric exam: Present: normal affect, normal mood Skin exam: Present: warm, dry, intact, normal color Course Vital Signs 04/07/21 04/07/21 13:43 15:58 Temperature 98.4 F Pulse Rate 133 H 105 H Respiratory 24 22 Rate Blood Pressure 116/76 95/59 O2 Sat by Pulse 100 96 Oximetry - Reevaluation(s) Reevaluation #1: 04/07/21 15:46 Patient remains in atrial fibrillation on the library monitor, but his heart rate has now improved to the low 100s 04/07/21 16:04 Case, H&P, test results and ED management thus far were discussed with Dr. Rc mccormack. He accepts hospital admission. He recommends cardiology consultation. He has no further recommendations at this time. 04/07/21 16:19 Patient remains in atrial fibrillation on the library monitor with heart rate in the low 100s. Patient denies development of any new symptoms while in the ED. Patient declines pain medication at this time. Patient remains alert and breathing comfortably with a normal room air oxygen saturation. Patient is aware of his test results, and he agrees with hospital admission at this time. EKG Findings - EKG Comments: EKG Findings:: Atrial fibrillation with rapid ventricular response, left bundle branch block (LBBB is seen on 11/04/2019 EKG as well), ventricular rate of 143 bpm, QRS duration of 146 ms, prolonged QTc interval of 549 ms Medical Decision Making - Medical Decision Making Patient's heart rate has improved with ED management, and he is currently in atrial fibrillation with a heart rate in the low 100s. Patient is Covid positive, but he has a normal room air oxygen saturation and he does not have any evidence of significant pneumonia on chest x-ray. Patient reports having Covid symptoms for the past 2 weeks. Patient's troponin is minimally elevated. Patient is on Eliquis anticoagulation therapy, and he was given a dose of aspirin in the ED. patient's rib x-rays show a possible right eighth rib fracture, but no evidence of pneumothorax. Patient is aware of his test results, and he agrees with hospital admission. Dr. Pinzon has accepted hospital admission. - Lab Data Result diagrams: 04/07/21 14:16 04/07/21 14:16 Lab Results 04/07/21 04/07/21 04/07/21 Range/Units 14:16 14:16 14:16 WBC 4.5 (3.8-10.6) k/uL RBC 4.99 (4.30-5.90) m/uL Hgb 14.4 (13.0-17.5) gm/dL Hct 44.6 (39.0-53.0) % MCV 89.4 (80.0-100.0) fL MCH 28.8 (25.0-35.0) pg MCHC 32.2 (31.0-37.0) g/dL RDW 14.2 (11.5-15.5) % Plt Count 178 (150-450) k/uL MPV 9.9 Neutrophils % 74 % Lymphocytes % 19 % Monocytes % 5 % Eosinophils % 0 % Basophils % 0 % Neutrophils # 3.3 (1.3-7.7) k/uL Lymphocytes # 0.9 L (1.0-4.8) k/uL Monocytes # 0.2 (0-1.0) k/uL Eosinophils # 0.0 (0-0.7) k/uL Basophils # 0.0 (0-0.2) k/uL PT 11.1 (9.0-12.0) sec INR 1.0 (<1.2) APTT 26.5 (22.0-30.0) sec D-Dimer 0.44 (<0.60) mg/L FEU Sodium 135 L (137-145) mmol/L Potassium 5.8 H (3.5-5.1) mmol/L Chloride 102 (98-107) mmol/L Carbon Dioxide 14 L (22-30) mmol/L Anion Gap 19 mmol/L BUN 34 H (9-20) mg/dL Creatinine 1.43 H (0.66-1.25) mg/dL Est GFR (CKD-EPI)AfAm 53 (>60 ml/min/1.73 sqM) Est GFR (CKD-EPI)NonAf 46 (>60 ml/min/1.73 sqM) Glucose 226 H (74-99) mg/dL Lactic Ac Sepsis Rflx Plasma Lactic Acid Nikolay (0.7-2.0) mmol/L Calcium 9.4 (8.4-10.2) mg/dL Magnesium 2.0 (1.6-2.3) mg/dL Total Bilirubin 0.8 (0.2-1.3) mg/dL AST 68 H (17-59) U/L ALT 26 (4-49) U/L Alkaline Phosphatase 67 (38-126) U/L Lactate Dehydrogenase 1084 H (313-618) U/L Troponin I (0.000-0.034) ng/mL C-Reactive Protein 3.0 H (<1.0) mg/dL NT-Pro-B Natriuret Pep pg/mL Total Protein 7.3 (6.3-8.2) g/dL Albumin 4.0 (3.5-5.0) g/dL 04/07/21 04/07/21 04/07/21 Range/Units 14:16 14:16 14:16 WBC (3.8-10.6) k/uL RBC (4.30-5.90) m/uL Hgb (13.0-17.5) gm/dL Hct (39.0-53.0) % MCV (80.0-100.0) fL MCH (25.0-35.0) pg MCHC (31.0-37.0) g/dL RDW (11.5-15.5) % Plt Count (150-450) k/uL MPV Neutrophils % % Lymphocytes % % Monocytes % % Eosinophils % % Basophils % % Neutrophils # (1.3-7.7) k/uL Lymphocytes # (1.0-4.8) k/uL Monocytes # (0-1.0) k/uL Eosinophils # (0-0.7) k/uL Basophils # (0-0.2) k/uL PT (9.0-12.0) sec INR (<1.2) APTT (22.0-30.0) sec D-Dimer (<0.60) mg/L FEU Sodium (137-145) mmol/L Potassium (3.5-5.1) mmol/L Chloride (98-107) mmol/L Carbon Dioxide (22-30) mmol/L Anion Gap mmol/L BUN (9-20) mg/dL Creatinine (0.66-1.25) mg/dL Est GFR (CKD-EPI)AfAm (>60 ml/min/1.73 sqM) Est GFR (CKD-EPI)NonAf (>60 ml/min/1.73 sqM) Glucose (74-99) mg/dL Lactic Ac Sepsis Rflx Plasma Lactic Acid Nikolay 3.2 H* (0.7-2.0) mmol/L Calcium (8.4-10.2) mg/dL Magnesium (1.6-2.3) mg/dL Total Bilirubin (0.2-1.3) mg/dL AST (17-59) U/L ALT (4-49) U/L Alkaline Phosphatase (38-126) U/L Lactate Dehydrogenase (313-618) U/L Troponin I 0.089 H* (0.000-0.034) ng/mL C-Reactive Protein (<1.0) mg/dL NT-Pro-B Natriuret Pep 4520 pg/mL Total Protein (6.3-8.2) g/dL Albumin (3.5-5.0) g/dL 04/07/21 Range/Units 14:51 WBC (3.8-10.6) k/uL RBC (4.30-5.90) m/uL Hgb (13.0-17.5) gm/dL Hct (39.0-53.0) % MCV (80.0-100.0) fL MCH (25.0-35.0) pg MCHC (31.0-37.0) g/dL RDW (11.5-15.5) % Plt Count (150-450) k/uL MPV Neutrophils % % Lymphocytes % % Monocytes % % Eosinophils % % Basophils % % Neutrophils # (1.3-7.7) k/uL Lymphocytes # (1.0-4.8) k/uL Monocytes # (0-1.0) k/uL Eosinophils # (0-0.7) k/uL Basophils # (0-0.2) k/uL PT (9.0-12.0) sec INR (<1.2) APTT (22.0-30.0) sec D-Dimer (<0.60) mg/L FEU Sodium (137-145) mmol/L Potassium (3.5-5.1) mmol/L Chloride (98-107) mmol/L Carbon Dioxide (22-30) mmol/L Anion Gap mmol/L BUN (9-20) mg/dL Creatinine (0.66-1.25) mg/dL Est GFR (CKD-EPI)AfAm (>60 ml/min/1.73 sqM) Est GFR (CKD-EPI)NonAf (>60 ml/min/1.73 sqM) Glucose (74-99) mg/dL Lactic Ac Sepsis Rflx Y Plasma Lactic Acid Nikolay (0.7-2.0) mmol/L Calcium (8.4-10.2) mg/dL Magnesium (1.6-2.3) mg/dL Total Bilirubin (0.2-1.3) mg/dL AST (17-59) U/L ALT (4-49) U/L Alkaline Phosphatase (38-126) U/L Lactate Dehydrogenase (313-618) U/L Troponin I (0.000-0.034) ng/mL C-Reactive Protein (<1.0) mg/dL NT-Pro-B Natriuret Pep pg/mL Total Protein (6.3-8.2) g/dL Albumin (3.5-5.0) g/dL - Radiology Data Radiology results: report reviewed (Chest x-ray: Normal heart, no heart failure, increased density over the lateral right upper lobe is a change compared to old examined could be scapula shadow, right upper lobe infiltrate not excluded; right rib x-rays: Possible right eighth rib fracture) Disposition Clinical Impression: Fall, Chest wall contusion, Weakness, Atrial fibrillation with rapid ventricular response, Elevated troponin, Hyperkalemia, COVID-19 Narrative: Possible right eighth rib fracture Disposition: ADMITTED IP TO THIS HOSP Condition: Stable Is patient prescribed a controlled substance at d/c from ED?: No Time of Disposition: 16:04
[2021-04-07 14:27] LABS: Basophils % (A) 0 %; Eosinophils % (A) 0 %; HCT 44.6 % (39.0-53.0); HGB 14.4 gm/dL (13.0-17.5); Lymphocytes # (A) 0.9 k/uL (1.0-4.8); Lymphocytes % (A) 19 %; MCH 28.8 pg (25.0-35.0); MCHC 32.2 g/dL (31.0-37.0); MCV 89.4 fL (80.0-100.0); Mean Platelet Volume 9.9; Monocytes # (A) 0.2 k/uL (0-1.0); Monocytes % (A) 5 %; Neutrophils # (A) 3.3 k/uL (1.3-7.7); Neutrophils % (A) 74 %; Platelet Count 178 k/uL (150-450); RBC 4.99 m/uL (4.30-5.90); RDW 14.2 % (11.5-15.5); WBC 4.5 k/uL (3.8-10.6)
[2021-04-07 14:39] LABS: Calcium 9.4 mg/dL (8.4-10.2); Potassium 5.8 mmol/L (3.5-5.1); Total Bilirubin 0.8 mg/dL (0.2-1.3); Total Protein 7.3 g/dL (6.3-8.2)
[2021-04-07] MEDS ORDERED: SODIUM CHLORIDE 0.9% 500 ML 500 ML IV ONE (14:53)
[2021-04-07] MEDS ORDERED: ASPIRIN 81 MG PO STA (14:53)
[2021-04-07] MEDS ORDERED: DILTIAZEM 5 MG/ML 5 ML VIAL IVP STA (14:54)
[2021-04-07 14:58] LABS: D-Dimer 0.44 mg/L FEU (<0.60); Partial Thromboplastin Time 26.5 sec (22.0-30.0); Prothrombin Time 11.1 sec (9.0-12.0)
--- NOTE | 2021-04-07 15:03 | XR ---
EXAMINATION TYPE: XR chest 1V portable DATE OF EXAM: 04/07/2021 COMPARISON: 11/04/2019 HISTORY: Fall. Hypertension. TECHNIQUE: Single view FINDINGS: Heart size is normal. There is no heart failure. There is left axillary pacemaker. Lungs ar e clear of consolidation. There is increased density over the lateral right upper lobe thought to be due to scapula shadow. IMPRESSION: Normal heart. No heart failure. Increased density over the lateral right upper lobe is a change compared to old exam and could be scapula shadow. Right upper lobe infiltrate not excluded.
--- NOTE | 2021-04-07 16:20 | XR ---
EXAMINATION TYPE: XR ribs RT DATE OF EXAM: 04/07/2021 COMPARISON: Today HISTORY: Fall. Pain. TECHNIQUE: 4 views FINDINGS: There is no pleural effusion or pneumothorax. There is mild pleural thickening on the right lateral chest wall. Heart size is normal. There is stent in the aortic valve. There is slight irregu lar appearance of the posterior lateral right eighth rib that could be a nondisplaced fracture. I see no pneumothorax.. IMPRESSION: Possible right eighth rib fracture.
[2021-04-07] MEDS ORDERED: HYDROmorphone 0.5 MG/0.5 ML SYRINGE IVP PRN (18:23)
[2021-04-07] MEDS ORDERED: ALPRAZolam 0.25 MG TAB PO PRN (18:23)
[2021-04-07] MEDS ORDERED: ACETAMINOPHEN TAB 500 MG TAB PO PRN (18:23)
[2021-04-07] MEDS ORDERED: HYDROcodone/APAP 5-325MG 1 EACH TAB PO PRN (18:23)
--- NOTE | 2021-04-07 19:08 | CT ---
EXAMINATION TYPE: CT chest wo con DATE OF EXAM: 04/07/2021 COMPARISON: None HISTORY: chest pain post fall, covid CT DLP: 394.7 mGycm Automated exposure control for dose reduction was used. Images were obtained from the thoracic inlet to the diaphragm without contrast. There is peripheral groundglass extensive pulmonary infiltrates. These measure up to 3 cm in thicknes s along the chest wall. Heart size is normal. There is no mediastinal adenopathy. There are no hilar masses. There is stent at the aortic valve. There is no pericardial effusion. There is no pleural eff usion. There is some pulmonary emphysema. The upper abdominal soft tissues are intact. There is degenerative spurring in the thoracic spine. There is no compression fracture. There is mild thoracic kyphotic deformity. Sternum is intact. The shoulder joints are intact. I see no rib fractur e. There is no evidence of focal bone destruction. IMPRESSION: Mild emphysema. Peripheral pulmonary groundglass interstitial infiltrates consistent with some interstitial fibrosis or interstitial pneumonia. No suspicious pulmonary mass.
--- NOTE | 2021-04-07 19:26 | HP ---
HISTORY AND PHYSICAL DATE OF SERVICE: 04/07/2021. CHIEF COMPLAINT: 1. Weakness. 2. Shortness of breath. HISTORY OF PRESENT ILLNESS: This 80-year-old gentleman with a past medical history of multiple medical problems including diabetes mellitus, GERD, GI bleed, hypertension, hyperlipidemia, myocardial infarction, being followed by Dr. Ventura in the outpatient setting, not feeling well for the past few days. The patient apparently was tangled in something according to him and the patient had some difficulty walking. Patient had a fall hitting the right side of the chest and the patient also had cough, congestion for the last 2 weeks. Apparently home Covid-19 was positive. The patient was evaluated. Patient was found to have atrial fibrillation with fast ventricular rate as well as troponins are borderline. Patient admitted for further evaluation and treatment. Other labs done in the ER showed potassium 5.8, creatinine is 1.43. The baseline was 1.5. The lactic acid was found to be 3.2 and troponin found to be 0.089 and LDH is 1084. The D- dimer is 0.44 and the chest x-ray reviewed personally by me showed some increased bilateral vascular markings. The patient's pulse ox is maintained at 96% on room air at this time. There is no history of fever, rigors or chills. No history of headache, loss of consciousness, seizures. PAST MEDICAL HISTORY: History of diabetes type 2, GERD, hypertension, hyperlipidemia, myocardial infarction, prostate disorder, history of CAD/stent. MEDICATIONS: Home medications are: , Zetia, amoxicillin, Glyxambi, Eliquis, Aldactone, Protonix, Lasix, Zestril, Lopid, Toprol, iron sulfate. Doses reviewed. ALLERGIES: ntd. FAMILY HISTORY: History of diabetes and myocardial infarction in the family. SOCIAL HISTORY: Previous history of smoking. No history of current smoking. REVIEW OF SYSTEMS: ENT: Diminished vision. Diminished hearing. CARDIOVASCULAR system: As mentioned earlier. RESPIRATORY: As mentioned earlier. GI: As mentioned earlier. : No dysuria. NERVOUS SYSTEM: As mentioned earlier. ALLERGIES/IMMUNOLOGY: No asthma or hayfever. MUSCULOSKELETAL: As mentioned earlier. HEMATOLOGY/ONCOLOGY: Prostate cancer. ENDOCRINE: Diabetes. CONSTITUTIONAL: As mentioned earlier. DERMATOLOGY negative. RHEUMATOLOGY: Negative. PSYCHIATRY as mentioned earlier. PHYSICAL EXAMINATION: Alert and oriented times three. Pulse 105, irregular. Blood pressure 90/59, respiration 22, temperature 98.2, pulse ox 97% on room air. HEENT: Conjunctivae normal. NECK: No JVD. CARDIOVASCULAR: S1, S2 muffled. Tachycardia. RESPIRATION: Breath sounds diminished in the bases. A few scattered rhonchi. ABDOMEN: Soft, nontender. No mass palpable. LEGS: No edema. No swelling. NERVOUS SYSTEM: Higher functions as mentioned earlier. Moves all 4 limbs. No focal motor or sensory deficits. LYMPHATICS: No lymph nodes palpable in the neck, axillae or groin. SKIN: No ulcer, no rash and no bleeding. JOINTS: No active deforming arthropathy. LABS: CBC within normal limits. Otherwise sodium 134, potassium 5.8, lymphocytes 0.9, creatinine is 1.43, glucose 226 and lactic acid 1.2. AST 68, troponin 0.089. LDH is 1084. C-reactive protein 3. Covid-19 is positive. The EKG which was reviewed personally by me showed atrial fibrillation with a fast ventricular rate as well as possible left bundle branch block. The rib x-rays possible right 8th rib fracture. ASSESSMENT: 1. Acute Covid-19 infection with possible acute purulent tracheobronchitis and severe weakness. 2. Fall and right 8th rib fracture. 3. Weakness and gait dysfunction for evaluation. 4. Acute on chronic renal failure with acute tubular necrosis. 5. Hyperkalemia. 6. Hyponatremia. 7. Troponin 0.089, indeterminate, rule out acute tta-WB-sifveoc-elevation myocardial infarction. 8. Atrial fibrillation with fast ventricular rate. 9. Elevated inflammatory markers of Covid-19 such as LDH and CRP. 10.Elevated plasma lactic acid. 11.Diabetes mellitus type 2. 12.Gastroesophageal reflux disease. 13.History of gastrointestinal bleed. 14.Hypertension. 15.Hyperlipidemia. 16.History of myocardial infarction. 17.History of prostate disorder. 18.History of prostate cancer. 19.History of basal cell melanoma of the skin. 20.History of AICD. 21.History of cardiac valve replacement. 22.History of coronary artery disease/ stent. 23.Remote history of nicotine dependence. 24.FULL CODE. RECOMMENDATIONS AND DISCUSSION: This 80-year-old gentleman who presented with multiple complex medical issues, we will monitor the patient closely, continue the current medications, management and symptomatic treatment. Otherwise at this time I recommend continue with home medications. The inflammatory markers slightly increased, but the patient is probably out of the window for Remdesivir because symptoms have been ongoing for the last 2 weeks. I would recommend a CT scan of the chest without any IV contrast and continue to monitor. Cardiology will be consulted. The patient received Cardizem drip. Neurology also will be consulted for the weakness. PT/OT evaluation also will be done. Otherwise symptomatic treatment for the pain also will be carried out. Overall prognosis extremely guarded because of multiple complex medical issues as mentioned. Incentive spirometry. We will also consult PT/OT and evaluation. nozzle and sleeve worker evaluation to assess home support and continue to monitor. ECF rehab could be a possibility. All charts reviewed and the prognosis guarded. A copy of this dictation being forwarded to Dr. Ventura who is the primary care physician. MMSIMEON / LORENA: [id number] / MTDD
[2021-04-07 20:03] LABS: Albumin 3.6 g/dL (3.5-5.0); Calcium 9.1 mg/dL (8.4-10.2); Total Bilirubin 0.4 mg/dL (0.2-1.3); Total Protein 6.4 g/dL (6.3-8.2)
[2021-04-07 20:20] LABS: Glucose,Whole Blood 275 mg/dL (75-99)
[2021-04-07] MEDS: APIXABAN 2.5 MG TABLET PO SCH (21:14)
[2021-04-07] MEDS: ASCORBIC ACID 500 MG TAB PO SCH (21:14)
[2021-04-07] MEDS: CHOLECALCIFEROL 25 MCG (1000 IU) TABLET PO SCH (21:14)
[2021-04-07] MEDS: PANTOPRAZOLE 40 MG/10 ML VIAL IVP SCH (21:15)
[2021-04-07] MEDS: FERROUS SULFATE 325 MG TAB PO SCH (21:15)
[2021-04-07] MEDS: ZINC SULFATE 220 MG CAP PO SCH (21:15)
[2021-04-07] MEDS: INSULIN ASPART (NovoLOG) 100 UNIT/ML VIAL SQ SCH (21:16)
[2021-04-08 00:19] LABS: Appearance,Urine Clear (Clear); Bacteria,Urine Rare /hpf; Bilirubin,Urine Negative (Negative); Blood,Urine Large (Negative); Color,Urine Yellow; Glucose,Urine (UA) 3+ (Negative); Granular Casts,Urine 9 /lpf (0); Hyaline Casts,Urine 16 /lpf (0-2); Ketones,Urine Negative (Negative); Leukocyte Esterase,Urine Negative (Negative); Mucus,Urine Rare /hpf; Nitrite,Urine Negative (Negative); PH, Urine 5.5 (5.0-8.0); Protein,Urine 2+ (Negative); RBC,Urine 65 /hpf (0-5); Specific Gravity,Urine 1.019 (1.001-1.035); Urobilinogen,Urine <2.0 mg/dL (<2.0); WBC,Urine 7 /hpf (0-5)
[2021-04-08 06:10] LABS: Glucose,Whole Blood 168 mg/dL (75-99)
[2021-04-08 08:06] LABS: Calcium 8.3 mg/dL (8.4-10.2); Potassium 4.4 mmol/L (3.5-5.1)
[2021-04-08 08:25] LABS: Basophils % (A) 1 %; Eosinophils % (A) 0 %; HCT 42.2 % (39.0-53.0); HGB 13.7 gm/dL (13.0-17.5); Hypochromasia Slight; Lymphocytes # (A) 0.8 k/uL (1.0-4.8); Lymphocytes % (A) 16 %; MCH 29.4 pg (25.0-35.0); MCHC 32.5 g/dL (31.0-37.0); MCV 90.6 fL (80.0-100.0); Mean Platelet Volume 9.4; Monocytes # (A) 0.3 k/uL (0-1.0); Monocytes % (A) 5 %; Neutrophils # (A) 3.9 k/uL (1.3-7.7); Neutrophils % (A) 76 %; Platelet Count 181 k/uL (150-450); RBC 4.66 m/uL (4.30-5.90); RDW 14.2 % (11.5-15.5); WBC 5.1 k/uL (3.8-10.6)
[2021-04-08] MEDS ORDERED: METOPROLOL SUCCINATE (ER) 100 MG TAB.ER.24H PO SCH (09:00)
[2021-04-08] MEDS: ASCORBIC ACID 500 MG TAB PO SCH (09:48)
[2021-04-08] MEDS: ZINC SULFATE 220 MG CAP PO SCH (09:48)
[2021-04-08] MEDS: PANTOPRAZOLE 40 MG/10 ML VIAL IVP SCH (09:48)
[2021-04-08] MEDS: APIXABAN 2.5 MG TABLET PO SCH ×2 (09:49→20:38)
[2021-04-08] MEDS: CHOLECALCIFEROL 25 MCG (1000 IU) TABLET PO SCH (09:49)
[2021-04-08] MEDS: FUROSEMIDE 20 MG TAB PO SCH (09:49)
[2021-04-08] MEDS: INSULIN ASPART (NovoLOG) 100 UNIT/ML VIAL SQ SCH ×7 (09:50→20:38)
--- NOTE | 2021-04-08 11:11 | P.CNNES ---
History of Present Illness Consult date: 04/08/21 Requesting physician: Philipp Pinzon Reason for Consult: Weakness History of Present Illness: Patient is a 80-year-old male came to the hospital yesterday at 1:37 PM by ambulance after he suffered from a fall. Patient states that he tripped on his feet and he fell on his ribs. He has been suffering from cough for the last 2 weeks. Patient has been feeling generalized weakness particularly in the legs. No focal weakness. He did not pass out. Did not hit his head. Per EMS flow sheet, patient was sitting in a chair alert 4 with GCS of 15. Complaining of rib pain. His pain was getting worse with movements certain way. Patient was in atrial fibrillation with also previous history of A. fib. Vital signs on arrival blood pressure 116/76, pulse rate 133, temperature 98.4. Chest x-ray showed normal heart. No heart failure. Increased density over the lateral right upper lobe is unchanged compared to old exam and could be scapular shadow. Right upper lobe infiltrate not excluded. EKG shows atrial fibri llation with rapid ventricular response. X-ray of the chest showed possible right eighth rib fracture. CT chest shows mild emphysema. Peripheral pulmonary groundglass interstitial infiltrates, consistent with some interstitial fibrosis or interstitial pneumonia. No suspicious pulmonary mass. Patient's blood test shows normal CBC, sodium 133 potassium 4.4, BUN 29, creatinine 1.17. Calcium 8.3. UA shows no signs of infection. Snow virus PCR positive. Patient at home takes iron, Lopid 600 mg twice a day, Pravastatin 40 mg, spironolactone 25 mg, Ezetimebe 10 mg, Lasix 20 mg, Protonix, Eliquis 2.5 mg twice a day, insulin, lisinopril 1.25 mg, metoprolol ER, 200 mg daily. Patient has diabetes for 10 years. Also has a pacemaker. He has atrial fibrillation on anticoagulation with Eliquis. He takes Eliquis regularly and has not missed any doses. He has smoked 3 packs per day since age 17, quit in 1999. He has hypertension. 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 He has pins and needles sensation from toes up to the ankles and also involves middle 3 fingers of both hands. Patient states that he has suffered from a fall a few years ago but nothing otherwise. Review of Systems Patient denies headache. It has any focal symptoms, denies any stroke symptoms. He has neuropathy in the feet. Patient has cough but no fever. Denies any abdominal pain. He has chest pain from fall and rib fracture. Denies any double vision, loss of vision. No hoarseness, sore throat, dysphagia. All other review of systems noncontributory. Complains of pain in the right thigh. Past Medical History Past Medical History: Cancer, Diabetes Mellitus, GERD/Reflux, GI Bleed, Hyperlipidemia, Hypertension, Myocardial Infarction ([place]), Prostate Disorder, Skin Disorder, Vascular Disorder Additional Past Medical History / Comment(s): HX PROSTATE CA with radiation and laser sx, & Basal Cell and Melanoma Skin - CURRENT AREAS DERMATOLOGY WATCHING SCALP, FACE,LT EAR; microcytic iron deficiency anemia, duodenitis Last Myocardial Infarction Date:: 1999 History of Any Multi-Drug Resistant Organisms: None Reported Past Surgical History: Adenoidectomy, AICD, Cardiac Valve Replacement, Heart Catheterization, Heart Catheterization With Stent, Tonsillectomy Additional Past Surgical History / Comment(s): 12/12/15 R fempop PTCA with stent X2.Other surgical h[place] 09[place] [facility] [place]. Laser/Radiation Tx for Prosate CA. EXC Rt Upper Arm Melanoma, Basal Cell EXC FROM SCALP. PTCA 06/15/15, INDIRA 08/22/15. ABD AORTOGRAM W/ RUNOFF 12/10/15, EGD, colonoscopy with arteriovenous malformation. LEFT NECK BASAL CELL CA REMOVED Past Anesthesia/Blood Transfusion Reactions: No Reported Reaction Date of Last Stent Placement:: 1999 Type of Cardiac Device: AICD Device Placement Date:: 04/01/2016-[facility] [place]-(model [id number] pt) Past Psychological History: No Psychological Hx Reported Additional Psychological History / Comment(s): . Smoking Status: Former smoker Past Alcohol Use History: Rare Additional Past Alcohol Use History / Comment(s): quit smoking in 1999 started age 16, smoked 2 ppd Past Drug Use History: None Reported - Past Family History Father Family Medical History: Diabetes Mellitus, Myocardial Infarction ([place]) Additional Family Medical History / Comment(s): Father of a [place] at age 64yrs. Mother History Unknown: Yes Family Medical History: No Reported History Additional Family Medical History / Comment(s): Mother at age 68 yrs. Medications and Allergies Home Medications Medication Instructions Recorded Confirmed Type Ferrous Sulfate [Iron (65 MG 325 mg PO Q48H 08/17/15 04/07/21 History Elemental)] gemfibroziL [Lopid] 600 mg PO BID 02/27/17 04/07/21 History Ezetimibe 10 mg PO DAILY 11/04/19 04/07/21 History Rosuvastatin Calcium 40 mg PO DAILY 11/04/19 04/07/21 History Spironolactone 25 mg PO DAILY 11/04/19 04/07/21 History Furosemide [Lasix] 20 mg PO DAILY #30 tab 11/10/19 04/07/21 Rx Pantoprazole Sodium [Protonix] 40 mg PO AC-BRKFST #30 tablet. 11/10/1903/23 Rx Amoxicillin 500 mg PO TID 04/07/21 04/07/21 History Apixaban [Eliquis] 2.5 mg PO BID 04/07/21 04/07/21 History Empagliflozin/Linagliptin 1 tab PO DAILY 04/07/21 04/07/21 History [Glyxambi 10 mg-5 mg Tablet] Ferrous Sulfate [Feosol] 650 mg PO Q48H 04/07/21 04/07/21 History INSULIN ASPART (NovoLOG) [NovoLOG 10 unit SQ AC-TID 04/07/21 04/07/21 History (formulary)] Metoprolol Succinate (ER) [Toprol 200 mg PO DAILY 04/07/21 04/07/21 History Xl] lisinopriL [Zestril] 1.25 mg PO DAILY 04/07/21 04/07/21 History Allergies Allergy/AdvReac Type Severity Reaction Status Date / Time bismuth subsalicylate Allergy Severe ABD PAIN, Verified 04/07/21 16:41 [From Pepto-Bismol] N/V molasses Allergy Severe Nausea & Uncoded 04/07/21 13:43 Vomiting Physical Examination - Vital Signs Vital Signs: Vital Signs Temp Pulse Pulse Pulse Pulse Resp BP 04/08/21 04:35 90 83 04/08/21 04:00 98.4 F 83 22 04/08/21 00:00 98.1 F 89 18 04/07/21 20:00 98.3 F 86 20 04/07/21 18:26 98.3 F 83 16 04/07/21 17:53 98.7 F 98 20 114/50 04/07/21 15:58 105 H 22 95/59 04/07/21 13:43 98.4 F 133 H 24 116/76 BP BP BP Pulse Ox 04/08/21 04:35 107/52 110/56 04/08/21 04:00 101/56 95 04/08/21 00:00 132/63 98 04/07/21 20:00 112/55 95 04/07/21 18:26 102/59 98 04/07/21 17:53 96 04/07/21 15:58 96 04/07/21 13:43 100 Intake and Output 04/07/21 04/08/21 04/08/21 22:59 06:59 14:59 Output Total 1100 Balance -1100 Output: Urine 1100 Straight 400 Other: Voiding Method Urinal Urinal # Voids 1 Weight 87.5 kg 88 kg Patient is an elderly male, very pleasant, in no acute distress. Patient is alert awake oriented to time place and person. He states it is February and then states it is March and the year is 2020. He knows that he is in [facility]. He knows name of the current president. Speech and language functions are normal. Attention, concentration and fund of knowledge is adequate. On cranial examination, pupils are round and reacting to light, visual roman are full on confrontation, with no neglect, extraocular muscles are intact with no nystagmus. Face is symmetric, tongue protrudes to the midline. Palatal elevation and sensation normal, hearing and shoulder shrug normal, facial sensation normal. Shoulder shrug normal. On muscle strength testing, there is no pronator drift and the strength is normal in arms and legs distally and proximally. Patient has tender right thigh. Deep tendon reflexes are overall diminished and plantars downgoing. Sensory to touch is equal with no neglect. Cerebellar function showed no ataxia for [id number] testing. No dysdiadochokinesia. Tone and bulk of muscles normal. Patient has mild ataxia for [id number] testing bilaterally. Gait deferred. On general examination, there is no carotid bruit or murmur, S1-S2 audible. Abdomen is soft nontender. Chest is clear. Peripheral pulses are present. No edema. Patient has hammertoes. Results - Laboratory Findings CBC and BMP: 04/08/21 07:12 04/08/21 07:12 Abnormal Lab Findings: Abnormal Labs 04/07/21 04/07/21 04/07/21 14:16 14:16 14:16 Lymphocytes # 0.9 L Sodium 135 L Potassium 5.8 H Carbon Dioxide 14 L BUN 34 H Creatinine 1.43 H Glucose 226 H POC Glucose (mg/dL) Plasma Lactic Acid Nikolay 3.2 H* Calcium AST 68 H Lactate Dehydrogenase 1084 H Troponin I C-Reactive Protein 3.0 H Urine Protein Urine Glucose (UA) Urine Blood Urine RBC Urine WBC Urine Bacteria Hyaline Casts Urine Mucus Coronavirus (PCR) 04/07/21 04/07/21 04/07/21 14:16 17:30 17:39 Lymphocytes # Sodium Potassium Carbon Dioxide BUN Creatinine Glucose POC Glucose (mg/dL) Plasma Lactic Acid Nikolay 2.2 H* Calcium AST Lactate Dehydrogenase Troponin I 0.089 H* C-Reactive Protein Urine Protein Urine Glucose (UA) Urine Blood Urine RBC Urine WBC Urine Bacteria Hyaline Casts Urine Mucus Coronavirus (PCR) Detected A 04/07/21 04/07/21 04/07/21 17:43 19:33 20:18 Lymphocytes # Sodium 133 L Potassium Carbon Dioxide 20 L BUN 35 H Creatinine 1.33 H Glucose 267 H POC Glucose (mg/dL) 275 H Plasma Lactic Acid Nikolay Calcium AST Lactate Dehydrogenase Troponin I 0.073 H* C-Reactive Protein Urine Protein Urine Glucose (UA) Urine Blood Urine RBC Urine WBC Urine Bacteria Hyaline Casts Urine Mucus Coronavirus (PCR) 04/07/21 04/07/21 04/07/21 20:48 21:40 23:57 Lymphocytes # Sodium Potassium Carbon Dioxide BUN Creatinine Glucose POC Glucose (mg/dL) Plasma Lactic Acid Nikolay 2.8 H* Calcium AST Lactate Dehydrogenase Troponin I 0.066 H* C-Reactive Protein Urine Protein 2+ H Urine Glucose (UA) 3+ H Urine Blood Large H Urine RBC 65 H Urine WBC 7 H Urine Bacteria Rare H Hyaline Casts 16 H Urine Mucus Rare H Coronavirus (PCR) 04/08/21 04/08/21 06:08 07:12 Lymphocytes # Sodium 133 L Potassium Carbon Dioxide 21 L BUN 29 H Creatinine Glucose 164 H POC Glucose (mg/dL) 168 H Plasma Lactic Acid Nikolay Calcium 8.3 L AST Lactate Dehydrogenase Troponin I C-Reactive Protein Urine Protein Urine Glucose (UA) Urine Blood Urine RBC Urine WBC Urine Bacteria Hyaline Casts Urine Mucus Coronavirus (PCR) Assessment and Plan Assessment: * Status post fall due to tripping. No loss of consciousness. * Acute Covid-19 infection. * Atrial fibrillation with rapid ventricular rate. * Pacemaker * X tobacco use * CAD * Diabetes Plan: * Patient will undergo computed tomography scan of the head to rule out any intracranial processes, as patient is on anticoagulation. * Medical management as per IM. * ID also following. * We will follow clinically.
--- NOTE | 2021-04-08 11:21 | P.CRDCN ---
History of Present Illness History of present illness: HISTORY OF PRESENTING ILLNESS This is a pleasant 80-year-old male past medical history significant for coronary artery disease status post PCI to the RCA and circumflex 2014, ischemic cardiomyopathy status post AICD, paroxysmal atrial fibrillation, valvular heart disease status post TAVR, peripheral vascular disease status post right iliac stenting, dyslipidemia, hypertension and diabetes mellitus. He follows in the office with [facility]. We have been asked to see in consultation for atrial fibrillation and elevated troponin. He presented to the hospital with symptoms of right thoracic pain after having a trip and fall at home. He also had been having cough and congestion for the previous 2 weeks and had previously tested positive for Covid. He continues to be Covid positive. EKG on arrival revealed atrial fibrillation with rapid ventricular response heart rate of 143 with underlying left bundle branch block. He was given Cardizem 10 mg IV push. Chest x-ray reveals no overt heart failure with an increased density over the lateral right upper lobe unchanged from previous exam. Chest CT reveals mild emphysematous changes, peripheral pulmonary groundglass interstitial infiltrates consistent with interstitial fibrosis or interstitial pneumonia. Laboratory data reviewed, sodium 133, potassium 4.4, creatinine on admission 1.40 3 repeat today 1.17, lactic acid on admission 2. 8 repeat today 1.4, troponin 0.0 89, 0.0 73, 0.0 66, NT proBNP 4520. Currently maintained on Eliquis 2.5 mg twice a day, Lasix 20 mg by mouth daily and Toprol 100 mg daily. Most recent echocardiogram obtained in the office June 2020 revealed impaired LV systolic function with ejection fraction 35%, moderate concentric LVH, normally functioning aortic valve with a mean gradient of 6 mmHg, mild tricuspid regurgitation. Telemetry tracings reveal he is ventricular paced with frequent PVCs and intermittent left bundle branch block. Appears rate dependent. REVIEW OF SYSTEMS At the time of my exam: CONSTITUTIONAL: Complains of generalized weakness. Denies fever or chills. CARDIOVASCULAR: Denies chest pain, shortness of breath, orthopnea, PND or palpitations. RESPIRATORY: Complains of cough. GASTROINTESTINAL: Denies abdominal pain, diarrhea, constipation, nausea or vomit ing. MUSCULOSKELETAL: Denies myalgias. NEUROLOGIC: Denies numbness, tingling, headacbe or weakness. ENDOCRINE: Denies fatigue, weight change, polydipsia or polyurina. GENITOURINARY: Denies burning, hematuria or urgency with micturation. HEMATOLOGIC: Denies history of anemia or bleeding. PHYSICAL EXAMINATION Blood pressure 118/59 heart rate 89 afebrile and maintaining oxygen saturation on room air. CONSTITUTIONAL: No apparent distress. Limited physical exam secondary to acute COVID-19 infection ASSESSMENT COVID-19 Generalized weakness Paroxysmal atrial fibrillation with rapid ventricular rate Elevated troponin secondary to COVID-19, not indicative of ACS. Acute on chronic kidney disease Lactic acidosis Coronary artery disease status post PCI's Ischemic cardiomyopathy status post AICD Valvular heart disease status post aortic valve replacement Peripheral vascular disease status post right iliac stenting Hypertension Dyslipidemia Diabetes mellitus PLAN Continue toprol for rate control, home dose is 200 mg daily, not 100mg. We will increase to home dose. Resume aldactone, rosuvastatin and lasix. Limited echo has been ordered and will be reviewed. Troponin elevation secondary to covid 19, no typical rise and fall pattern, no symptoms of angina. Ongoing treatment of covid 19 per primary care team. Thank you kindly for this consultation. Nurse Practitioner note has been reviewed, I agree with a documented findings and plan of care. Patient was seen and examined. 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 HEART STENTS X3. Laser/Radiation Tx for Prosate CA. EXC Rt Upper Arm Melanoma, Basal Cell EXC FROM SCALP. PTCA 06/15/15, INDIRA 08/22/15. ABD AORTOGRAM W/ RUNOFF 12/10/15, EGD, colonoscopy with arteriovenous malformation. LEFT NECK BASAL CELL CA REMOVED Past Anesthesia/Blood Transfusion Reactions: No Reported Reaction Date of Last Stent Placement:: 1999 Type of Cardiac Device: AICD Device Placement Date:: 04/01/2016-[facility] [place]-(model [id number] pt) Past Psychological History: No Psychological Hx Reported Additional Psychological History / Comment(s): . Smoking Status: Former smoker Past Alcohol Use History: Rare Additional Past Alcohol Use History / Comment(s): quit smoking in 1999 started age 16, smoked 2 ppd Past Drug Use History: None Reported - Past Family History Father Family Medical History: Diabetes Mellitus, Myocardial Infarction ([place]) Additional Family Medical History / Comment(s): Father of a [place] at age 64yrs. Mother History Unknown: Yes Family Medical History: No Reported History Additional Family Medical History / Comment(s): Mother at age 68 yrs. Medications and Allergies Home Medications Medication Instructions Recorded Confirmed Type Ferrous Sulfate [Iron (65 MG 325 mg PO Q48H 08/17/15 04/07/21 History Elemental)] gemfibroziL [Lopid] 600 mg PO BID 02/27/17 04/07/21 History Ezetimibe 10 mg PO DAILY 11/04/19 04/07/21 History Rosuvastatin Calcium 40 mg PO DAILY 11/04/19 04/07/21 History Spironolactone 25 mg PO DAILY 11/04/19 04/07/21 History Furosemide [Lasix] 20 mg PO DAILY #30 tab 11/10/19 04/07/21 Rx Pantoprazole Sodium [Protonix] 40 mg PO AC-BRKFST #30 tablet. 11/10/19 04/07/21 Rx Amoxicillin 500 mg PO TID 04/07/21 04/07/21 History Apixaban [Eliquis] 2.5 mg PO BID 04/07/21 04/07/21 History Empagliflozin/Linagliptin 1 tab PO DAILY 04/07/21 04/07/21 History [Glyxambi 10 mg-5 mg Tablet] Ferrous Sulfate [Feosol] 650 mg PO Q48H 04/07/21 04/07/21 History INSULIN ASPART (NovoLOG) [NovoLOG 10 unit SQ AC-TID 04/07/21 04/07/21 History (formulary)] Metoprolol Succinate (ER) [Toprol 200 mg PO DAILY 04/07/21 04/07/21 History Xl] lisinopriL [Zestril] 1.25 mg PO DAILY 04/07/21 04/07/21 History Allergies Allergy/AdvReac Type Severity Reaction Status Date / Time bismuth subsalicylate Allergy Severe ABD PAIN, Verified 04/07/21 16:41 [From Pepto-Bismol] N/V molasses Allergy Severe Nausea & Uncoded 04/07/21 13:43 Vomiting Physical Exam Vitals: Vital Signs Temp Pulse Pulse Pulse Pulse Resp BP 04/08/21 04:35 90 83 04/08/21 04:00 98.4 F 83 22 04/08/21 00:00 98.1 F 89 18 04/07/21 20:00 98.3 F 86 20 04/07/21 18:26 98.3 F 83 16 04/07/21 17:53 98.7 F 98 20 114/50 04/07/21 15:58 105 H 22 95/59 04/07/21 13:43 98.4 F 133 H 24 116/76 BP BP BP Pulse Ox 04/08/21 04:35 107/52 110/56 04/08/21 04:00 101/56 95 04/08/21 00:00 132/63 98 04/07/21 20:00 112/55 95 04/07/21 18:26 102/59 98 04/07/21 17:53 96 04/07/21 15:58 96 04/07/21 13:43 100 Intake and Output 04/07/21 04/08/21 04/08/21 22:59 06:59 14:59 Output Total 1100 Balance -1100 Output: Urine 1100 Straight 400 Other: Voiding Method Urinal Urinal # Voids 1 Weight 87.5 kg 88 kg Results 04/08/21 07:12 04/08/21 07:12 Cardiac Enzymes 04/07/21 04/07/21 04/07/21 Range/Units 14:16 14:16 17:43 AST 68 H (17-59) U/L Lactate Dehydrogenase 1084 H (313-618) U/L Troponin I 0.089 H* 0.073 H* (0.000-0.034) ng/mL 04/07/21 04/07/21 Range/Units 19:33 20:48 AST 54 (17-59) U/L Lactate Dehydrogenase (313-618) U/L Troponin I 0.066 H* (0.000-0.034) ng/mL Coagulation 04/07/21 Range/Units 14:16 PT 11.1 (9.0-12.0) sec APTT 26.5 (22.0-30.0) sec CBC 04/07/21 04/08/21 Range/Units 14:16 07:12 WBC 4.5 5.1 (3.8-10.6) k/uL RBC 4.99 4.66 (4.30-5.90) m/uL Hgb 14.4 13.7 (13.0-17.5) gm/dL Hct 44.6 42.2 (39.0-53.0) % Plt Count 178 181 (150-450) k/uL Comprehensive Metabolic Panel 04/07/21 04/07/21 04/08/21 Range/Units 14:16 19:33 07:12 Sodium 135 L 133 L 133 L (137-145) mmol/L Potassium 5.8 H 5.0 4.4 (3.5-5.1) mmol/L Chloride 102 102 103 (98-107) mmol/L Carbon Dioxide 14 L 20 L 21 L (22-30) mmol/L BUN 34 H 35 H 29 H (9-20) mg/dL Creatinine 1.43 H 1.33 H 1.17 (0.66-1.25) mg/dL Glucose 226 H 267 H 164 H (74-99) mg/dL Calcium 9.4 9.1 8.3 L (8.4-10.2) mg/dL AST 68 H 54 (17-59) U/L ALT 26 23 (4-49) U/L Alkaline Phosphatase 67 65 (38-126) U/L Total Protein 7.3 6.4 (6.3-8.2) g/dL Albumin 4.0 3.6 (3.5-5.0) g/dL Current Medications Generic Name Dose Route Start Last Admin Trade Name Freq PRN Reason Stop Dose Admin Acetaminophen 500 mg 04/07/21 18:23 Acetaminophen Tab 500 Mg Tab PO Q6HR PRN Fever and/ or Pain Hydrocodone Bitart/Acetaminophen 1 each 04/07/21 18:23 Hydrocodone/Apap 5-325mg 1 Each Tab PO Q6HR PRN Pain Alprazolam 0.25 mg 04/07/21 18:23 Alprazolam 0.25 Mg Tab PO TID PRN Anxiety Apixaban 2.5 mg 04/07/21 21:00 04/07/21 21:14 Apixaban 2.5 Mg Tablet PO 2.5 mg BID MOHAN Administration Ascorbic Acid 500 mg 04/07/21 18:30 04/07/21 21:14 Ascorbic Acid 500 Mg Tab PO 500 mg DAILY MOHAN Administration Cholecalciferol 25 mcg 04/07/21 18:30 04/07/21 21:14 Cholecalciferol 25 Mcg (1000 Iu) Tablet PO 25 mcg DAILY MOHAN Administration Ferrous Sulfate 325 mg 04/07/21 18:30 04/07/21 21:15 Ferrous Sulfate 325 Mg Tab PO 325 mg Q48H MOHAN Administration Folic Acid 1 mg 04/08/21 12:00 Folic Acid 1 Mg Tab PO DAILY@1200 MOHAN Furosemide 20 mg 04/08/21 09:00 Furosemide 20 Mg Tab PO DAILY MOHAN Hydromorphone HCl 0.5 mg 04/07/21 18:23 Hydromorphone 0.5 Mg/0.5 Ml Syringe IVP Q6HR PRN Severe Pain Insulin Aspart 10 unit 04/08/21 07:30 Insulin Aspart (Novolog) 100 Unit/Ml Vial SQ AC-TID MOHAN Insulin Aspart 0 unit 04/07/21 21:00 04/07/21 21:16 Insulin Aspart (Novolog) 100 Unit/Ml Vial SQ 4 unit ACHS MOHAN Administration Protocol Metoprolol Succinate 100 mg 04/08/21 09:00 Metoprolol Succinate (Er) 100 Mg Tab.Er.24h PO DAILY [facility] Pantoprazole Sodium 40 mg 04/07/21 18:30 04/07/21 21:15 Pantoprazole 40 Mg/10 Ml Vial IVP 40 mg DAILY MOHAN Administration Zinc Sulfate 220 mg 04/07/21 18:30 04/07/21 21:15 Zinc Sulfate 220 Mg Cap PO 220 mg DAILY MOHAN Administration Intake and Output 04/07/21 04/08/21 04/08/21 22:59 06:59 14:59 Output Total 1100 Balance -1100 Output: Urine 1100 Straight 400 Other: Voiding Method Urinal Urinal # Voids 1 Weight 87.5 kg 88 kg 04/08/21 07:12 04/08/21 07:12
[2021-04-08 11:32] LABS: Ferritin 495.3 ng/mL (22.0-322.0)
--- NOTE | 2021-04-08 11:46 | CT ---
EXAMINATION TYPE: CT brain wo con DATE OF EXAM: 04/08/2021 HISTORY: Weakness fall injury, CT DLP: 1176.4 mGycm. Automated Exposure Control for Dose Reduction was Utilized. TECHNIQUE: CT scan of the head is performed without contrast. COMPARISON: None. FINDINGS: There is no acute intracranial hemorrhage or midline shift identified. There is mild to m oderate diffuse ventricular and sulcal prominence consistent with diffuse age-related cerebral atroph y. There is mild to moderate low-attenuation in the periventricular white matter consistent with chr onic small vessel ischemic change. The globes are intact and the visualized sinuses are clear. The calvarium is intact. IMPRESSION: No acute intracranial hemorrhage or midline shift. There is mild to moderate diffuse ag e-related cerebral atrophy and chronic small vessel ischemic change noted.
[2021-04-08 12:01] LABS: Glucose,Whole Blood 157 mg/dL (75-99)
--- NOTE | 2021-04-08 12:33 | ECHOF ---
Referral Reason:afib MEASUREMENTS -------- HEIGHT: 180.3 cm WEIGHT: 88.0 kg BP: 107/52 RVIDd: 1.4 cm (< 3.3) IVSd: 1.3 cm (0.6 - 1.1) LVIDd: 4.0 cm (3.9 - 5.3) LVPWd: 1.4 cm (0.6 - 1.1) IVSs: 1.8 cm LVIDs: 3.4 cm LVPWs: 1.8 cm LAESV Index (A-L): 26.10 ml/m Ao Diam: 3.3 cm (2.0 - 3.7) AV Cusp: 2.3 cm (1.5 - 2.6) LA Diam: 2.6 cm (2.7 - 3.8) MV EXCURSION: 12.495 mm (> 18.000) MV EF SLOPE: 60 mm/s (70 - 150) EPSS: 3.0 cm MV E Link: 0.63 m/s MV DecT: 198 ms MV A Link: 1.19 m/s MV E/A Ratio: 0.53 AV maxP.00 mmHg AV meanP.82 mmHg RAP: 5.00 mmHg RVSP: 9.86 mmHg FINDINGS -------- This was a technically difficult study with suboptimal views. The left ventricular size is normal. There is mild concentric left ventricular hypertrophy. Overa ll left ventricular systolic function is severely impaired with, an EF between 20 - 25 %. Normal LA P. Grade 1 Diastolic Dysfunction. The right ventricle is normal in size. The left atrial size is normal. Normal LA size by volume 22+/-6 ml/m2. The right atrial size is normal. xx ml of [place] was utilized for enhancement of images. Peak/mean gradient across the Aortic Valve is 9.00mmHg / 5.82mmHg. TAVR procedure done . The mitral valve is normal. The mitral valve leaflets are mildly thickened. There is trace mitral regurgitation. The tricuspid valve appears structurally normal. Trace tricuspid regurgitation present. Right leonidas tricular systolic pressure is normal at < 35 mmHg. The pulmonic valve was not well visualized. The aortic root size is normal. Normal inferior vena cava with normal inspiratory collapse consistent with estimated right atrial pre ssure of 5 mmHg. There is no pericardial effusion. CONCLUSIONS -------- 1. The left ventricular size is normal. 2. There is mild concentric left ventricular hypertrophy. 3. Overall left ventricular systolic function is severely impaired with, an EF between 20 - 25 %. 4. Normal LAP. Grade 1 Diastolic Dysfunction. 5. Peak/mean gradient across the Aortic Valve is 9.00mmHg / 5.82mmHg. 6. TAVR procedure done. 7. The mitral valve leaflets are mildly thickened. 8. There is trace mitral regurgitation. 9. Trace tricuspid regurgitation present. 10. There is no pericardial effusion. VICE PRESIDENT FINANCIAL: Michelle Coleman RDCS
[2021-04-08] MEDS: ATORVASTATIN 80 MG TAB PO SCH (12:50)
[2021-04-08] MEDS: FOLIC ACID 1 MG TAB PO SCH (12:50)
--- NOTE | 2021-04-08 16:28 | PN ---
PROGRESS NOTE DATE OF SERVICE: 04/08/2021 This 80-year-old gentleman, being followed by Dr. Ventura in the outpatient setting, was admitted with acute COVID-19 infection with possible acute purulent tracheobronchitis and severe weakness. The patient had multiple other laboratory abnormalities also. The patient is being closely monitored at this time. Multiple consultants are followed the patient closely, including Cardiology and Neurology. A 2D echo with Doppler was done with Cardiology which showed ejection fraction about 20% to 25% with evidence of TAVR procedure. Neurology has seen the patient and recommended CT scan of the brain, which showed no acute abnormality. Mild to moderate diffuse age-related changes were noted. Past medical history reviewed. REVIEW OF SYSTEMS: CARDIOVASCULAR SYSTEM: No angina, palpitations. RESPIRATORY SYSTEM: As mentioned earlier. GI: As mentioned earlier. : No dysuria or retention. NERVOUS SYSTEM: As mentioned earlier. MUSCULOSKELETAL: As mentioned earlier. CURRENT MEDICATIONS: Reviewed. They include Tylenol, [place], Xanax, Eliquis, vitamin C, Lipitor, vitamin D3. Doses and other medications are reviewed. PHYSICAL EXAMINATION: Patient alert and oriented x3. Pulse 79, blood pressure 107/58, respiration 18, temperature 98.5, pulse ox 97% on room air. HEENT: Conjunctivae normal. NECK: No jugular venous distention. CARDIOVASCULAR SYSTEM: S1, S2 muffled. RESPIRATORY SYSTEM: Breath sounds diminished at the bases. No rhonchi. No crackles. ABDOMEN: Soft, non-tender. LEGS: No edema. No swelling. NERVOUS SYSTEM: No focal deficit. LABS: WBC 5.2, hemoglobin 13.7. Lymphocytes are 0.8. Sodium 133. Glucose 164. ASSESSMENT: 1. Acute COVID-19 infection with possible acute purulent tracheobronchitis and severe weakness. 2. Fall and right eighth rib fracture. 3. Weakness and gait dysfunction for evaluation. 4. Acute on chronic renal failure with acute tubular necrosis with prerenal factors. 5. Hyperkalemia secondary to renal failure. 6. Hyponatremia. 7. Troponin 0.089, indeterminate. Rule out acute [id number]-elevation myocardial infarction. 8. Atrial fibrillation with fast ventricular rate. 9. Cardiomyopathy, possibly ischemic, ejection fraction 20% to 25%, with chronic systolic dysfunction and chronic congestive heart failure. 10.Elevated inflammatory markers of COVID-19 such as LDH and CRP. 11.Elevated plasma lactic acid. 12.Diabetes mellitus, type 2. 13.Gastroesophageal reflux disease. 14.History of gastrointestinal bleed. 15.Hypertension. 16.Hyperlipidemia. 17.History of myocardial infarction. 18.History of prostate disorder. 19.History of basal cell carcinoma and melanoma of the skin. 20.History of automated implantable cardioverter defibrillator. 21.History of cardiac valve replacement. 22.History of coronary artery disease, stent. 23.Remote history of nicotine dependence. 24.FULL CODE. RECOMMENDATIONS AND DISCUSSION: I recommend to continue current medications, continue with the monitoring, symptomatic treatment. The patient has significant cardiomyopathy. The previous echocardiogram from 2015 also showed ejection fraction 25% to 30%, which indicates rather a chronic process, but the patient also has acute COVID-19; some of the symptoms may be as a result of acute COVID-19 infection. Will continue to monitor. PT/OT evaluation. We will consider possible ECF rehab. Guarded prognosis because of multiple complex medical issues. Further recommendations to follow. MMODL / IJN: [id number] /
[2021-04-08 17:24] LABS: Glucose,Whole Blood 118 mg/dL (75-99)
[2021-04-08 20:37] LABS: Glucose,Whole Blood 146 mg/dL (75-99)
--- NOTE | 2021-04-09 06:08 | CONS ---
CONSULTATION DATE OF SERVICE: 04/08/2021 REASON FOR CONSULTATION: COVID-19 infection. HISTORY OF PRESENT ILLNESS: The patient is an 80-year-old male who was brought into the ER yesterday afternoon after after the patient tangled in something outside causing him to fall. The patient landed on his right side and has been complaining of right-sided rib cage pain, intensity is 5 to 6/10, worse with a deep breath and no radiation. The patient is also complaining of cough that has been going on for almost 2 weeks now, which is moderate in intensity. Some occasional clear sputum. Some nausea. No vomiting. No abdominal pain. He did have some diarrhea. With these symptoms, the patient has been evaluated by the ER physician. On arrival to the ER the patient was afebrile and no fever has been recorded. Subsequently, patient was not hypoxia with O2 saturation between 96-100 percent. The patient did have a normal white count with lymphopenia. D-dimer was normal. BUN was slightly elevated. The creatinine was also mildly elevated at 1.33. AST was mildly elevated. LDH was 1084. CRP 3.0. Urine was mildly positive. Snow PCR was positive. Blood culture obtained is currently pending. The patient did have a chest x-ray, normal heart. No heart failure. Increased density over the lateral upper lobe. He also had a CT of the chest, pulmonary ground-glass interstitial infiltrate consistent with infection. The patient has been admitted to the hospital. Infectious Disease was consulted regarding his COVID-19 infection. REVIEW OF SYSTEMS: Positive points have been mentioned in HPI. Rest of systems are negative. PAST MEDICAL HISTORY: Diabetes mellitus, GERD, GI bleed, hyperlipidemia, history of prostate cancer with radiation, nasal surgery. PAST SURGICAL HISTORY: Adenoidectomy, AICD placement, heart valve replacement, PTCA with stent and tonsillectomy. SOCIAL HISTORY: No history of smoking. Rarely drinks. No drug use. FAMILY HISTORY: Father with a history of diabetes. ALLERGIES: . MEDICATIONS: The patient is currently on Tylenol, [place], Xanax, Eliquis, vitamin C, Lipitor, vitamin D3, iron sulfate, Lasix, Dilaudid, NovoLog, Toprol-XL, Protonix, Aldactone and zinc. PHYSICAL EXAMINATION: VITAL SIGNS: Blood pressure is 113/56, pulse of 85, temperature 99.4. He is 95% on room air. GENERAL DESCRIPTION: Patient is an elderly male lying in bed in no distress. No tachypnea or accessory muscles of respiration use. HEENT: Examination shows no pallor or scleral icterus. Oral mucous membrane is dry. NECK: Trachea central, no thyromegaly. LUNGS: Unlabored breathing, decreased intensity of breath sounds, no wheeze. HEART: S1-S2, regular rate and rhythm. ABDOMEN: Soft, no tenderness. No guarding or rigidity. EXTREMITIES: No edema of the feet. SKIN: No rash or mass palpable. NEUROLOGICAL: Patient is awake, alert, oriented times three. Mood and affect normal. LABS: Hemoglobin is 13.7, white count 5.1, BUN of 34, creatinine 1.43, 5.8 495. Urine is mildly positive. Chest x-ray and CT report mentioned above. DIAGNOSTIC IMPRESSION: Patient admitted to the hospital predominantly after he got tangled and fell down with right-sided ribcage pain. This patient did have a cough that has been going on for about 2 weeks and has been diagnosed with COVID-19 infection, more likely mild illness with symptoms going on for more than 2 weeks. The patient is currently not hypoxic and not on supplemental oxygen. Treatment will be mostly supportive. PLAN: 1. The patient to continue Eliquis, which the patient had already been taking, along with vitamin C and zinc. 2. Droplet isolation and respiratory support. 3. No need for Remdesivir or Actemra at this point. 4. We will follow his clinical condition and adjust medication further if needed. Thank you for this consultation. Will follow this patient along with you. MMODL / IJN: [id number] /
[2021-04-09 07:11] LABS: Glucose,Whole Blood 153 mg/dL (75-99)
[2021-04-09] MEDS: INSULIN ASPART (NovoLOG) 100 UNIT/ML VIAL SQ SCH ×7 (07:23→20:45)
[2021-04-09 08:10] LABS: Basophils % (A) 0 %; Eosinophils % (A) 0 %; HGB 13.1 gm/dL (13.0-17.5); Lymphocytes # (A) 0.6 k/uL (1.0-4.8); Lymphocytes % (A) 14 %; MCH 29.3 pg (25.0-35.0); MCHC 33.8 g/dL (31.0-37.0); MCV 86.7 fL (80.0-100.0); Mean Platelet Volume 9.3; Monocytes # (A) 0.2 k/uL (0-1.0); Monocytes % (A) 5 %; Neutrophils # (A) 3.6 k/uL (1.3-7.7); Neutrophils % (A) 79 %; Platelet Count 165 k/uL (150-450); RBC 4.49 m/uL (4.30-5.90); RDW 13.8 % (11.5-15.5); WBC 4.5 k/uL (3.8-10.6)
[2021-04-09 08:21] LABS: Calcium 8.6 mg/dL (8.4-10.2); Potassium 4.6 mmol/L (3.5-5.1)
[2021-04-09] MEDS: FUROSEMIDE 20 MG TAB PO SCH (09:01)
[2021-04-09] MEDS: ZINC SULFATE 220 MG CAP PO SCH (09:01)
[2021-04-09] MEDS: ASCORBIC ACID 500 MG TAB PO SCH (09:01)
[2021-04-09] MEDS: SPIRONOLACTONE 25 MG TAB PO SCH (09:02)
[2021-04-09] MEDS: CHOLECALCIFEROL 25 MCG (1000 IU) TABLET PO SCH (09:02)
[2021-04-09] MEDS: ATORVASTATIN 80 MG TAB PO SCH (09:02)
[2021-04-09] MEDS: METOPROLOL SUCCINATE (ER) 100 MG TAB.ER.24H PO SCH (09:02)
[2021-04-09] MEDS: APIXABAN 2.5 MG TABLET PO SCH ×2 (09:03→20:46)
[2021-04-09] MEDS: PANTOPRAZOLE 40 MG TABLET PO SCH (09:03)
--- NOTE | 2021-04-09 11:14 | XR ---
EXAMINATION TYPE: XR chest 1V DATE OF EXAM: 04/09/2021 CLINICAL HISTORY: Difficulty breathing and covid progress study. TECHNIQUE: Single AP portable upright view of the chest is obtained. COMPARISON: Chest x-ray from 2 days earlier. FINDINGS: Persistent cardiomegaly with multilead pacemaker/defibrillator. Persistent multifocal opac ities greatest in the right upper lung in the periphery. Elevated left hemidiaphragm with patchy late ral left basilar opacity. Osseous structures are demineralized. IMPRESSION: Cardiomegaly and chronic parenchymal changes with persistent multifocal bilateral opaciti es consistent with covid-19 infection. No significant change from most recent x-ray.
--- NOTE | 2021-04-09 11:29 | P.PN ---
Subjective HISTORY OF PRESENTING ILLNESS This is a pleasant 80-year-old male past medical history significant for coronary artery disease status post PCI to the RCA and circumflex 2014, ischemic cardiomyopathy status post AICD, paroxysmal atrial fibrillation, valvular heart disease status post TAVR, peripheral vascular disease status post right iliac stenting, dyslipidemia, hypertension and diabetes mellitus. He follows in the office with [facility]. We have been asked to see in consultation for atrial fibrillation and elevated troponin. He presented to the hospital with symptoms of right thoracic pain after having a trip and fall at home. He also had been having cough and congestion for the previous 2 weeks and had previously tested positive for Covid. He continues to be Covid positive. EKG on arrival revealed atrial fibrillation with rapid ventricular response heart rate of 143 with underlying left bundle branch block. He was given Cardizem 10 mg IV push. Chest x-ray reveals no overt heart failure with an increased density over the lateral right upper lobe unchanged from previous exam. Chest CT reveals mild emphysematous changes, peripheral pulmonary groundglass interstitial infiltrates consistent with interstitial fibrosis or interstitial pneumonia. Laboratory data reviewed, sodium 133, potassium 4.4, creatinine on admission 1.40 3 repeat today 1.17, lactic acid on admission 2. 8 repeat today 1.4, troponin 0.0 89, 0.0 73, 0.0 66, NT proBNP 4520. Currently maintained on Eliquis 2.5 mg twice a day, Lasix 20 mg by mouth daily and Toprol 100 mg daily. Most recent echocardiogram obtained in the office June 2020 revealed impaired LV systolic function with ejection fraction 35%, moderate concentric LVH, normally functioning aortic valve with a mean gradient of 6 mmHg, mild tricuspid regurgitation. Telemetry tracings reveal he is ventricular paced with frequent PVCs and intermittent left bundle branch block. Appears rate dependent. 04/09/2021 Pt V-paced on the monitor. Heart rate 85, blood pressure 142/71. Echocardiogram obtained revealed severely impaired LV systolic function with ejection fraction 20-25%, grade 1 diastolic dysfunction, mean gradient across the aortic valve is 5 mmHg. laboratory data reviewed, CBC unremarkable, sodium 134, potassium 4.6, creatinine 1.06. Repeat chest x-ray today reveals chronic parenchymal changes with persistent multifocal bilateral opacity is consistent with COVID-19. PHYSICAL EXAMINATION Blood pressure 118/59 heart rate 89 afebrile and maintaining oxygen saturation on room air. CONSTITUTIONAL: No apparent distress. Limited physical exam secondary to acute COVID-19 infection ASSESSMENT COVID-19 pneumonia Generalized weakness Paroxysmal atrial fibrillation with rapid ventricular rate Elevated troponin secondary to COVID-19, not indicative of ACS. Acute on chronic kidney disease, resolved Lactic acidosis Coronary artery disease status post PCI's Ischemic cardiomyopathy status post AICD Valvular heart disease status post aortic valve replacement Peripheral vascular disease status post right iliac stenting Hypertension Dyslipidemia Diabetes mellitus PLAN Continue current medical regimen. Ongoing treatment for covid pneumonia per primary care team. No further cardiac intervention or testing at this time. Follow up with Dr. Coto upon discharge. Nurse Practitioner note has been reviewed, I agree with a documented findings and plan of care. Patient was seen and examined. Objective - Vital Signs Vital signs: Vital Signs Temp 98.9 F 04/09/21 08:55 Pulse 85 04/09/21 08:55 Resp 16 04/09/21 08:55 BP 114/76 04/09/21 08:55 Pulse Ox 93 L 04/09/21 08:55 Intake & Output 04/08/21 04/09/21 04/09/21 18:59 06:59 18:59 Intake Total 490 125 236 Output Total 725 850 Balance -235 -725 236 Weight 94 kg Intake: Oral 490 125 236 Output: Urine 725 850 Other: Voiding Method Urinal Urinal # Voids 1 - Labs CBC & Chem 7: 04/09/21 07:25 04/09/21 07:25 Labs: Abnormal Lab Results - Last 24 Hours (Table) 04/07/21 04/07/21 04/08/21 Range/Units 14:16 14:16 11:59 Lymphocytes # (1.0-4.8) k/uL Sodium (137-145) mmol/L BUN (9-20) mg/dL Glucose (74-99) mg/dL POC Glucose (mg/dL) 157 H (75-99) mg/dL Ferritin 495.3 H (22.0-322.0) ng/mL Coronavirus (PCR) Detected A (Not Detected) 04/08/21 04/08/21 04/09/21 Range/Units 17:22 20:35 07:09 Lymphocytes # (1.0-4.8) k/uL Sodium (137-145) mmol/L BUN (9-20) mg/dL Glucose (74-99) mg/dL POC Glucose (mg/dL) 118 H 146 H 153 H (75-99) mg/dL Ferritin (22.0-322.0) ng/mL Coronavirus (PCR) (Not Detected) 04/09/21 04/09/21 Range/Units 07:25 07:25 Lymphocytes # 0.6 L (1.0-4.8) k/uL Sodium 134 L (137-145) mmol/L BUN 23 H (9-20) mg/dL Glucose 159 H (74-99) mg/dL POC Glucose (mg/dL) (75-99) mg/dL Ferritin (22.0-322.0) ng/mL Coronavirus (PCR) (Not Detected) Microbiology - Last 24 Hours (Table) 04/07/21 14:16 Blood Culture - Preliminary Blood No Growth after 24 hours 04/07/21 14:16 Blood Culture - Preliminary Blood No Growth after 24 hours 04/07/21 23:57 Urine Culture - Preliminary Urine,Clean Catch
[2021-04-09 12:05] LABS: Glucose,Whole Blood 187 mg/dL (75-99)
--- NOTE | 2021-04-09 12:41 | P.PN ---
Subjective This is a pleasant 80 years old male with multiple medical problems including diabetes mellitus, hypertension, hyperlipidemia, coronary artery disease status post stent placement and a I CAD, history of prostate cancer status post radiotherapy.. He was admitted with A. fib and RVR with elevated troponin who is evaluated by fire range technician and thought it is due to his A. fib and covid infection. Patient also with ischemic cardiomyopathy on AICD. Patient is alert and awake. He has some tachypnea today and dry coughing, chest x-ray showing bilateral infiltrates consistent with cough and pneumonia however he is saturating 92-94% on room air. He is already on vitamin C and D and zinc. Neurology following the patient for his generalized weakness and fall. He is currently on Eliquis 2.5 mg which his home medication, also he is on metoprolol 200 mg and Lasix 20 mg orally. Today repeat chest x-ray showed chronic changes with bilateral infiltrates similar to admission. Lavern DM is admitted for his coughing. We'll keep monitoring with cardiology, infectious disease and nephrology of the case Also patient with postural hypotension with a drop of blood pressure 118/53 on supine down to 81/48 on sitting. Labs from today are unremarkable. Objective - Vital Signs Vital signs: Vital Signs Temp 98.9 F 04/09/21 08:55 Pulse 85 04/09/21 08:55 Resp 16 04/09/21 08:55 BP 114/76 04/09/21 08:55 Pulse Ox 93 L 04/09/21 08:55 Intake & Output 04/08/21 04/09/21 04/09/21 18:59 06:59 18:59 Intake Total 490 125 236 Output Total 725 850 Balance -235 -725 236 Weight 94 kg Intake: Oral 490 125 236 Output: Urine 725 850 Other: Voiding Method Urinal Urinal # Voids 1 - Exam -GENERAL: The patient is alert and oriented x3, not in any acute distress. Generally weak HEENT: Pupils are round and equally reacting to light. EOMI. No scleral icterus. No conjunctival pallor. Normocephalic, atraumatic. No pharyngeal erythema. No thyromegaly. CARDIOVASCULAR: S1 and S2 present. No murmurs, rubs, or gallops. -PULMONARY: Chest is clear to auscultation, no wheezing or crackles. Tachypnea ABDOMEN: Soft, nontender, nondistended, normoactive bowel sounds. No palpable organomegaly. MUSCULOSKELETAL: No joint swelling or deformity. EXTREMITIES: No cyanosis, clubbing, or pedal edema. NEUROLOGICAL: Gross neurological examination did not reveal any focal deficits. SKIN: No rashes. no petechiae. - Labs CBC & Chem 7: 04/09/21 07:25 04/09/21 07:25 Labs: Abnormal Lab Results - Last 24 Hours (Table) 04/07/21 04/08/21 04/08/21 Range/Units 14:16 17:22 20:35 Lymphocytes # (1.0-4.8) k/uL Sodium (137-145) mmol/L BUN (9-20) mg/dL Glucose (74-99) mg/dL POC Glucose (mg/dL) 118 H 146 H (75-99) mg/dL Coronavirus (PCR) Detected A (Not Detected) 04/09/21 04/09/21 04/09/21 Range/Units 07:09 07:25 07:25 Lymphocytes # 0.6 L (1.0-4.8) k/uL Sodium 134 L (137-145) mmol/L BUN 23 H (9-20) mg/dL Glucose 159 H (74-99) mg/dL POC Glucose (mg/dL) 153 H (75-99) mg/dL Coronavirus (PCR) (Not Detected) 04/09/21 Range/Units 11:43 Lymphocytes # (1.0-4.8) k/uL Sodium (137-145) mmol/L BUN (9-20) mg/dL Glucose (74-99) mg/dL POC Glucose (mg/dL) 187 H (75-99) mg/dL Coronavirus (PCR) (Not Detected) Microbiology - Last 24 Hours (Table) 04/07/21 14:16 Blood Culture - Preliminary Blood No Growth after 24 hours 04/07/21 14:16 Blood Culture - Preliminary Blood No Growth after 24 hours 04/07/21 23:57 Urine Culture - Preliminary Urine,Clean Catch Assessment and Plan Assessment: A. fib with RVR with elevated troponin Generalized weakness and fall, being followed by neurology. Postural hyp otension also may be contributing Postural hypotension Subacute Covid 19 infection Ischemic cardiomyopathy status post AICD History of coronary artery disease status post stenting Diabetes mellitus Hypertension Hyperlipidemia Plan: A pleasant 80 years old male who presents with A. fib and generalized weakness and ischemic cardiomyopathy. Continue with the Eliquis, continue with home dose of metoprolol, Aldactone and Lasix per fire range technician's recommendation will follow on the case closely. Continue with ID team and neurology team recommendation Labs and medication were reviewed.. Continue same treatment. Continue with symptomatic treatment. Resume home medication. Monitor lytes and vitals. DVT and GI prophylaxis. Further recommendationsas per clinical course of the patient DVT prophylaxis: Subcutaneous heparin GI Prophylaxis: Ppi PT/OT: Pending Prognosis is guarded
[2021-04-09] MEDS: FOLIC ACID 1 MG TAB PO SCH (12:43)
--- NOTE | 2021-04-09 13:28 | P.PN ---
Subjective Progress Note Date: 04/09/21 Patient appears slightly somnolent. Appears somewhat sick. Orthostatics positive. Supine blood pressure 114/76, on sitting up was 85/49 he has been running low blood pressures. T-max 99.3. Objective - Vital Signs Vital signs: Vital Signs Temp 97.8 F 04/09/21 13:00 Pulse 84 04/09/21 13:00 Resp 16 04/09/21 13:00 BP 109/59 04/09/21 13:00 Pulse Ox 92 L 04/09/21 13:00 Intake & Output 04/08/21 04/09/21 04/09/21 18:59 06:59 18:59 Intake Total 490 125 236 Output Total 725 850 Balance -235 -725 236 Weight 94 kg Intake: Oral 490 125 236 Output: Urine 725 850 Other: Voiding Method Urinal Urinal # Voids 1 - Exam Patient laying comfortably in the bed, appears slightly somnolent. Face is symmetric, speech and language functions are normal. Muscle strength is equal. Detail examination deferred. - Labs CBC & Chem 7: 04/09/21 07:25 04/09/21 07:25 Labs: Abnormal Lab Results - Last 24 Hours (Table) 04/07/21 04/08/21 04/08/21 Range/Units 14:16 17:22 20:35 Lymphocytes # (1.0-4.8) k/uL Sodium (137-145) mmol/L BUN (9-20) mg/dL Glucose (74-99) mg/dL POC Glucose (mg/dL) 118 H 146 H (75-99) mg/dL Coronavirus (PCR) Detected A (Not Detected) 04/09/21 04/09/21 04/09/21 Range/Units 07:09 07:25 07:25 Lymphocytes # 0.6 L (1.0-4.8) k/uL Sodium 134 L (137-145) mmol/L BUN 23 H (9-20) mg/dL Glucose 159 H (74-99) mg/dL POC Glucose (mg/dL) 153 H (75-99) mg/dL Coronavirus (PCR) (Not Detected) 04/09/21 Range/Units 11:43 Lymphocytes # (1.0-4.8) k/uL Sodium (137-145) mmol/L BUN (9-20) mg/dL Glucose (74-99) mg/dL POC Glucose (mg/dL) 187 H (75-99) mg/dL Coronavirus (PCR) (Not Detected) Microbiology - Last 24 Hours (Table) 04/07/21 23:57 Urine Culture - Final Urine,Clean Catch 04/07/21 14:16 Blood Culture - Preliminary Blood No Growth after 24 hours 04/07/21 14:16 Blood Culture - Preliminary Blood No Growth after 24 hours Assessment and Plan Assessment: * Status post fall due to tripping. No loss of consciousness. * Orthostatic hypotension. * Acute Covid-19 infection. * Atrial fibrillation with rapid ventricular rate. * Pacemaker * X tobacco use * CAD * Diabetes Plan: * Computed tomography scan of the head showed no acute intracranial process. Mild to moderate diffuse age-related cerebral atrophy and chronic small vessel ischemic change. * Medical management as per IM. * Patient has severe orthostatic hypotension. Cardiology on board. * ID also following. * Telemetry monitoring showing paced rhythm. * Continue Apixaban 2.5 mg twice a day, Lipitor 80 mg. * Neurology will sign off. Please reconsult neurology if any other concerns.\
[2021-04-09] MEDS: guaiFENesin-DM 100-10MG/5ML 10 ML CUP PO PRN (16:02)
[2021-04-09 17:09] LABS: Glucose,Whole Blood 198 mg/dL (75-99)
[2021-04-09] MEDS: FERROUS SULFATE 325 MG TAB PO SCH (17:30)
[2021-04-09 20:23] LABS: Glucose,Whole Blood 220 mg/dL (75-99)
--- NOTE | 2021-04-09 20:30 | PN ---
PROGRESS NOTE DATE OF SERVICE: 04/09/2021 REASON FOR FOLLOWUP: COVID-19 pneumonia. INTERVAL HISTORY: The patient is afebrile, has been breathing comfortably. The patient did mention slightly more cough today. No chest pain, though. No abdominal pain or diarrhea. PHYSICAL EXAMINATION: His blood pressure is 104/57, pulse of 78, temperature 99.3. He is 92% on room air. General description is an elderly male lying in bed in no distress. RESPIRATORY SYSTEM: Unlabored breathing with decreased intensity of breath sounds. No wheeze. HEART: S1, S2. Regular rate and rhythm. ABDOMEN: Soft. No tenderness. EXTREMITIES: No edema of the feet. LABS: Hemoglobin 4.5, BUN of 23, creatinine 1.06. DIAGNOSTIC IMPRESSION AND PLAN: Patient with acute COVID-19 infection in this patient who presented to hospital with more than 2 weeks of symptoms. The patient was not hypoxic initially. He did have mild hypoxemia today, with oxygen saturation of 92%. Chest x-ray did not show any worsening. Will repeat his inflammatory markers tomorrow. Continue with Eliquis, zinc, ascorbic acid and monitor his clinical course closely. MMODL / IJN: [id number] /
[2021-04-10 06:32] LABS: Glucose,Whole Blood 192 mg/dL (75-99)
[2021-04-10] MEDS: guaiFENesin-DM 100-10MG/5ML 10 ML CUP PO PRN (06:45)
[2021-04-10] MEDS: INSULIN ASPART (NovoLOG) 100 UNIT/ML VIAL SQ SCH ×7 (07:09→20:50)
[2021-04-10] MEDS: FUROSEMIDE 20 MG TAB PO SCH (10:41)
[2021-04-10] MEDS: METOPROLOL SUCCINATE (ER) 100 MG TAB.ER.24H PO SCH (10:41)
[2021-04-10] MEDS: PANTOPRAZOLE 40 MG TABLET PO SCH (10:41)
[2021-04-10] MEDS: FOLIC ACID 1 MG TAB PO SCH (10:41)
[2021-04-10] MEDS: CHOLECALCIFEROL 25 MCG (1000 IU) TABLET PO SCH (10:41)
[2021-04-10] MEDS: ASCORBIC ACID 500 MG TAB PO SCH (10:41)
[2021-04-10] MEDS: ZINC SULFATE 220 MG CAP PO SCH (10:42)
[2021-04-10] MEDS: SPIRONOLACTONE 25 MG TAB PO SCH (10:42)
[2021-04-10] MEDS: APIXABAN 2.5 MG TABLET PO SCH ×2 (10:42→20:50)
[2021-04-10] MEDS: ATORVASTATIN 80 MG TAB PO SCH (10:42)
[2021-04-10 12:07] LABS: Glucose,Whole Blood 191 mg/dL (75-99)
--- NOTE | 2021-04-10 12:30 | P.PN ---
Subjective This is a pleasant 80 years old male with multiple medical problems including diabetes mellitus, hypertension, hyperlipidemia, coronary artery disease status post stent placement and a I CAD, history of prostate cancer status post radiotherapy.. He was admitted with A. fib and RVR with elevated troponin who is evaluated by landscape gardener and thought it is due to his A. fib and covid infection. Patient also with ischemic cardiomyopathy on AICD. Patient is alert and awake. He has some tachypnea today and dry coughing, chest x-ray showing bilateral infiltrates consistent with cough and pneumonia however he is saturating 92-94% on room air. He is already on vitamin C and D and zinc. Neurology following the patient for his generalized weakness and fall. He is currently on Eliquis 2.5 mg which his home medication, also he is on metoprolol 200 mg and Lasix 20 mg orally. Today repeat chest x-ray showed chronic changes with bilateral infiltrates similar to admission. Lavern DM is admitted for his coughing. We'll keep monitoring with cardiology, infectious disease and nephrology of the case Also patient with postural hypotension with a drop of blood pressure 118/53 on supine down to 81/48 on sitting. Labs from today are unremarkable. 04/10/2021 This is a pleasant 80 years old male who was admitted initially with A. fib and RVR with elevated troponin secondary to his cardiac disease and landscape gardener recommended medical management. Also infectious disease team following the patient for his Covid pneumonia however he has normal respiratory distress, no significant hypoxia. Chest x-ray looks stable and infectious disease team recommended continue with the same vitamins. Patient still feels generally weak and he will benefit from ECF for rehab upon discharge per PT/OT. Neurology signed off, landscape gardener recommended no further workup. Patient however had urinary retention today with bladder scan showing 400 mL, no Jean catheter was placed and urology team were consulted for that reason. Patient remains with some postural hypotension. However he is on Eliquis, Lasix 20 mg daily and metoprolol. Objective - Vital Signs Vital signs: Vital Signs Temp 98.0 F 04/10/21 04:00 Pulse 87 04/10/21 04:00 Resp 18 04/10/21 04:00 BP 103/57 04/10/21 04:15 Pulse Ox 94 L 04/10/21 04:00 Intake & Output 04/09/21 04/10/21 04/10/21 18:59 06:59 18:59 Intake Total 726 50 Output Total 650 600 175 Balance 76 -550 -175 Weight 111.5 kg Intake: Oral 726 50 Output: Urine 650 600 175 Other: Voiding Method Urinal Urinal # Voids 2 2 1 - Exam -GENERAL: The patient is alert and oriented x3, not in any acute distress. Generally weak HEENT: Pupils are round and equally reacting to light. EOMI. No scleral icterus. No conjunctival pallor. Normocephalic, atraumatic. No pharyngeal erythema. No thyromegaly. CARDIOVASCULAR: S1 and S2 present. No murmurs, rubs, or gallops. -PULMONARY: Chest is clear to auscultation, no wheezing or crackles. Tachypnea ABDOMEN: Soft, nontender, nondistended, normoactive bowel sounds. No palpable organomegaly. MUSCULOSKELETAL: No joint swelling or deformity. EXTREMITIES: No cyanosis, clubbing, or pedal edema. NEUROLOGICAL: Gross neurological examination did not reveal any focal deficits. SKIN: No rashes. no petechiae. - Labs CBC & Chem 7: 04/09/21 07:25 04/09/21 07:25 Labs: Abnormal Lab Results - Last 24 Hours (Table) 04/09/21 04/09/21 04/10/21 Range/Units 17:06 20:21 06:30 POC Glucose (mg/dL) 198 H 220 H 192 H (75-99) mg/dL 04/10/21 Range/Units 12:05 POC Glucose (mg/dL) 191 H (75-99) mg/dL Microbiology - Last 24 Hours (Table) 04/07/21 14:16 Blood Culture - Preliminary Blood No Growth after 48 hours 04/07/21 14:16 Blood Culture - Preliminary Blood No Growth after 48 hours 04/07/21 23:57 Urine Culture - Final Urine,Clean Catch Assessment and Plan Assessment: Acute urinary retention A. fib with RVR with elevated troponin Generalized weakness and fall, being followed by neurology who signs off. Postural hypotension also may be contributing Postural hypotension Subacute Covid 19 infection Ischemic cardiomyopathy status post AICD History of coronary artery disease status post stenting Diabetes mellitus Hypertension Hyperlipidemia Plan: A pleasant 80 years old male who presents with A. fib and generalized weakness and ischemic cardiomyopathy. Continue with the Eliquis, continue with home dose of metoprolol, Aldactone and Lasix per landscape gardener's recommendation will follow on the case closely. Continue with ID team and neurology team recommendation Consult urology for urinary retention Labs and medication were reviewed.. Continue same treatment. Continue with symptomatic treatment. Resume home medication. Monitor lytes and vitals. DVT and GI prophylaxis. Further recommendationsas per clinical course of the patient DVT prophylaxis: Subcutaneous heparin GI Prophylaxis: Ppi PT/OT: Pending Prognosis is guarded
[2021-04-10] MEDS ORDERED: LIDOCAINE 2% GEL 30 ML TUBE TOPICAL STA (15:51)
[2021-04-10 17:22] LABS: Glucose,Whole Blood 187 mg/dL (75-99)
--- NOTE | 2021-04-10 17:27 | PN ---
PROGRESS NOTE DATE OF SERVICE: 04/10/2021 REASON FOR FOLLOWUP: COVID-19 pneumonia. INTERVAL HISTORY: The patient is currently afebrile. The patient is breathing slightly comfortably today. The patient denies having any chest pain. Occasional cough. No nausea, no vomiting, no abdominal pain or diarrhea. PHYSICAL EXAMINATION: Blood pressure is 92/56, pulse of 78, temperature 98.3. He is 92% on room air. General description is an elderly male lying in bed in no distress. RESPIRATORY SYSTEM: Unlabored breathing with decreased breath sounds at the base. No wheeze. HEART: S1, S2. Regular rate and rhythm. ABDOMEN: Soft. No tenderness. LABS: No new labs have been obtained today. DIAGNOSTIC IMPRESSION AND PLAN: Patient with COVID-19 pneumonia in this patient who seems to have shown some clinical improvement. Oxygenation remains baseline, but no need for supplemental oxygen. Continue with Eliquis, zinc, ascorbic acid. Repeat inflammatory markers tomorrow and monitor his clinical course closely. MMODL / IJN: [id number] /
[2021-04-10 20:54] LABS: Glucose,Whole Blood 174 mg/dL (75-99)
--- NOTE | 2021-04-11 06:44 | P.GSCN ---
History of Present Illness Consult date: 04/10/21 Reason for Consult: Urinary retention Requesting physician: Jayant E Sheet History of present illness: The patient is an 80-year-old white male admitted with COVID pneumonia. He has been found to empty his bladder incompletely. He denies voiding difficulty at home. He was originally seen by me in 2003 with a PSA level of 3.2. A prostate ultrasound had shown a left peripheral zone hypoechoic lesion. 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 He was treated with one year of androgen deprivation therapy (ADT) along with radiation therapy, which he completed in November 2004. His PSA level was undetectable in October 2018, consistent with AUGIE status. Review of Systems - Constitutional Reports weakness - Genitourinary Denies dysuria, Denies hematuria Past Medical History Past Medical History: Cancer, Diabetes Mellitus, GERD/Reflux, GI Bleed, Hyperlipidemia, Hypertension, Myocardial Infarction (GA), Prostate Disorder, Skin Disorder, Vascular Disorder Additional Past Medical History / Comment(s): HX PROSTATE CA with radiation and laser sx, & Basal Cell and Melanoma Skin - CURRENT AREAS DERMATOLOGY WATCHING SCALP, FACE,LT EAR; microcytic iron deficiency anemia, duodenitis Last Myocardial Infarction Date:: 1999 History of Any Multi-Drug Resistant Organisms: None Reported Past Surgical History: Adenoidectomy, AICD, Cardiac Valve Replacement, Heart Catheterization, Heart Catheterization With Stent, Tonsillectomy Additional Past Surgical History / Comment(s): 12/12/15 R fempop PTCA with stent X2.Other surgical hx 09/2015 TARV AT [facility] – [place]. HEART STENTS X3. Laser/Radiation Tx for Prosate CA. EXC Rt Upper Arm Melanoma, Basal Cell EXC FROM SCALP. PTCA 06/15/15, INDIRA 08/22/15. ABD AORTOGRAM W/ RUNOFF 12/10/15, EGD, colonoscopy with arteriovenous malformation. LEFT NECK BASAL CELL CA REMOVED Past Anesthesia/Blood Transfusion Reactions: No Reported Reaction Date of Last Stent Placement:: 1999 Type of Cardiac Device: AICD Device Placement Date:: 04/01/2016-[facility] [place]-(model [id number] pt) Past Psychological History: No Psychological Hx Reported Additional Psychological History / Comment(s): . Smoking Status: Former smoker Past Alcohol Use History: Rare Additional Past Alcohol Use History / Comment(s): quit smoking in 1999 started age 16, smoked 2 ppd Past Drug Use History: None Reported - Past Family History Father Family Medical History: Diabetes Mellitus, Myocardial Infarction (GA) Additional Family Medical History / Comment(s): Father of a GA at age 64yrs. Mother History Unknown: Yes Family Medical History: No Reported History Additional Family Medical History / Comment(s): Mother at age 68 yrs. Medications and Allergies Home Medications Medication Instructions Recorded Confirmed Type Ferrous Sulfate [Iron (65 MG 325 mg PO Q48H 08/17/15 04/07/21 History Elemental)] gemfibroziL [Lopid] 600 mg PO BID 02/27/17 04/07/21 History Ezetimibe 10 mg PO DAILY 11/04/19 04/07/21 History Rosuvastatin Calcium 40 mg PO DAILY 11/04/19 04/07/21 History Spironolactone 25 mg PO DAILY 11/04/19 04/07/21 History Furosemide [Lasix] 20 mg PO DAILY #30 tab 11/10/19 04/07/21 Rx Pantoprazole Sodium [Protonix] 40 mg PO AC-BRKFST #30 tablet. 11/10/19 04/07/21 Rx Amoxicillin 500 mg PO TID 04/07/21 04/07/21 History Apixaban [Eliquis] 2.5 mg PO BID 04/07/21 04/07/21 History Empagliflozin/Linagliptin 1 tab PO DAILY 04/07/21 04/07/21 History [Glyxambi 10 mg-5 mg Tablet] Ferrous Sulfate [Feosol] 650 mg PO Q48H 04/07/21 04/07/21 History INSULIN ASPART (NovoLOG) [NovoLOG 10 unit SQ AC-TID 04/07/21 04/07/21 History (formulary)] Metoprolol Succinate (ER) [Toprol 200 mg PO DAILY 04/07/21 04/07/21 History Xl] lisinopriL [Zestril] 1.25 mg PO DAILY 04/07/21 04/07/21 History Allergies Allergy/AdvReac Type Severity Reaction Status Date / Time bismuth subsalicylate Allergy Severe ABD PAIN, Verified 04/07/21 16:41 [From Pepto-Bismol] N/V molasses Allergy Severe Nausea & Uncoded 04/07/21 13:43 Vomiting Surgical - Exam Vital Signs Temp Pulse Resp BP Pulse Ox 98.4 F 133 H 24 116/76 100 04/07/21 13:43 04/07/21 13:43 04/07/21 13:43 04/07/21 13:43 04/07/21 13:43 - General well developed, well nourished, no distress - Respiratory normal respiratory effort - Abdomen Abdomen: soft, non tender, no guarding, no rigid, no rebound - Genitourinary normal penis with no external lesions, testicles non-tender - Psychiatric oriented to time, oriented to person, oriented to place, speech is normal, memory intact Results - Labs 04/09/21 07:25 04/09/21 07:25 Abnormal Lab Results - Last 24 Hours (Table) 04/09/21 04/10/21 04/10/21 Range/Units 20:21 06:30 12:05 POC Glucose (mg/dL) 220 H 192 H 191 H (75-99) mg/dL 04/10/21 Range/Units 17:01 POC Glucose (mg/dL) 187 H (75-99) mg/dL Microbiology - Last 24 Hours (Table) 04/07/21 14:16 Blood Culture - Preliminary Blood No Growth after 72 hours 04/07/21 14:16 Blood Culture - Preliminary Blood No Growth after 72 hours Assessment and Plan (1) Retention of urine, unspecified Current Visit: Yes Status: Acute Code(s): R33.9 - RETENTION OF URINE, UNSPECIFIED SNOMED Code(s): 252581440 Plan: The penis was prepped and draped sterilly. 2% lidocaine gel was administered intraurethrally. A 16 Tamazight Coude tip Jean was placed. Some resistance was met within the prostatic urethra. 325 cc of clear urine was obtained. The catheter may be removed when no longer medically needed.
[2021-04-11 07:20] LABS: Glucose,Whole Blood 179 mg/dL (75-99)
[2021-04-11 07:49] LABS: Albumin 3.1 g/dL (3.5-5.0); C Reactive Protein 6.2 mg/dL (<1.0); Calcium 8.5 mg/dL (8.4-10.2); Potassium 4.2 mmol/L (3.5-5.1); Total Bilirubin 0.5 mg/dL (0.2-1.3); Total Protein 5.9 g/dL (6.3-8.2)
[2021-04-11] MEDS: INSULIN ASPART (NovoLOG) 100 UNIT/ML VIAL SQ SCH ×7 (09:53→20:43)
[2021-04-11] MEDS: CHOLECALCIFEROL 25 MCG (1000 IU) TABLET PO SCH (09:54)
[2021-04-11] MEDS: FOLIC ACID 1 MG TAB PO SCH (09:54)
[2021-04-11] MEDS: PANTOPRAZOLE 40 MG TABLET PO SCH (09:54)
[2021-04-11] MEDS: APIXABAN 2.5 MG TABLET PO SCH ×2 (09:54→20:43)
[2021-04-11] MEDS: METOPROLOL SUCCINATE (ER) 100 MG TAB.ER.24H PO SCH (09:54)
[2021-04-11] MEDS: ATORVASTATIN 80 MG TAB PO SCH (09:54)
[2021-04-11] MEDS: SPIRONOLACTONE 25 MG TAB PO SCH (09:54)
[2021-04-11] MEDS: ASCORBIC ACID 500 MG TAB PO SCH (09:54)
[2021-04-11] MEDS: ZINC SULFATE 220 MG CAP PO SCH (09:54)
[2021-04-11] MEDS: FUROSEMIDE 20 MG TAB PO SCH (09:54)
--- NOTE | 2021-04-11 11:55 | P.DS ---
Providers Date of admission: 04/07/21 16:12 Attending physician: Philipp Pinzon Consults: 04/07/21 16:14 Consult Physician Urgent Consulting Provider: Malachi Jenkins Consult Reason/Comments: elevated troponin, atrial fibrillation with RVR Do you want consulting provider notified?: Yes 04/07/21 18:21 Consult Physician Routine Consulting Provider: Boris Galarza Consult Reason/Comments: weakness Do you want consulting provider notified?: Yes 04/07/21 18:27 Consult Physician Routine Consulting Provider: Yumi Mclain Consult Reason/Comments: covid Do you want consulting provider notified?: Yes 04/10/21 12:01 Consult Physician Routine Consulting Provider: Shilo Cruz Consult Reason/Comments: urinary retention, unable to place urinary catheter Do you want consulting provider notified?: Yes Primary care physician: Lorenzo Haynes [facility] Course: Diagnoses: A. fib with RVR with elevated troponin, cleared by acute coordinator for discharge Acute urinary retention, 400 mL per bladder scan, Jean catheter was placed. Flomax and started for 1-2 week Generalized weakness and fall, being followed by neurology who signs off. Postural hypotension also may be contributing Postural hypotension, gradually improving Subacute Covid 19 infection Ischemic cardiomyopathy status post AICD History of coronary artery disease status post stenting Diabetes mellitus Hypertension Hyperlipidemia Fall, without syncope Hospital course: This is a pleasant 80 years old male with multiple medical problems including diabetes mellitus, hypertension, hyperlipidemia, coronary artery disease status post stent placement, history of prostate cancer status post radiotherapy.. He was admitted with a fall and found to have A. fib and RVR with elevated troponin who is evaluated by acute coordinator and thought it is due to his A. fib and covid infection. Patient also with ischemic cardiomyopathy on AICD. Currently patient heart rate is controlled and He is currently on Eliquis 2.5 mg which his home medication, also he is on metoprolol 200 mg and Lasix 20 mg orally.. No further cardiopulmonary symptoms. Patient is alert and awake. No dyspnea or tachypnea, no coughing, no chest pain, chest x-ray showing bilateral infiltrates consistent with cough and pneumonia however he is saturating 92-94% on room air. He is already on vitamin C and D and zinc. And infectious disease were following the case closely. Neurology following the patient for his generalized weakness and fall and they already signed off with no further workup needed. repeat chest x-ray showed chronic changes with bilateral infiltrates similar to admission. Lavern DM is admitted for his coughing. Also patient with postural hypotension, patient has minimal symptoms and is on for rehab Yesterday patient had urinary retention today with bladder scan showing 400 mL, Jean catheter was found to be inserted with some trauma, urologist was consulted and Dr. cruz was able to place a Jean catheter, urine is slightly pink mostly secondary to his trauma. Vitals and hemoglobin is stable. Urologist recommended that the Jean catheter can be discontinued when medically indicated, however in view of his history of prostatic cancer restart him on Flomax with recommendation to follow up with urologist Dr. cruz . Patient is going for ECF for subacute rehab Patient was cleared for discharge by all consultants Problems and management plan were discussed with the patient and he verbalized understanding and acceptance Patient was found stable and can be discharged home however he needs follow-up as an outpatient. Patient was instructed to follow up with PCP within one week and patient agrees Physical exam Gen: patient is a AAOx3, no distress, Generally weak CVS: S1-S2, RRR, no murmur Lungs: B/L CTA, no wheezing Abdomen: soft, no distention, no tenderness, positive bowel sounds. Jean catheter is in place Extremity: no leg edema or induration Time spent more than 35 minutes Patient Condition at Discharge: Stable Plan - Discharge Summary Discharge Rx Participant: No New Discharge Prescriptions: New Zinc Sulfate [Orazinc] 220 mg PO DAILY cap Cholecalciferol [Vitamin D3 (25 Mcg = 1000 Iu)] 25 mcg PO DAILY tablet Folic Acid 1 mg PO DAILY@1200 tab INSULIN ASPART (NovoLOG) [NovoLOG (formulary)] 0 unit SQ ACHS vial Linagliptin [Tradjenta] 5 mg PO DAILY #30 tab Ascorbic Acid [Vitamin C] 500 mg PO DAILY tab Continue Ferrous Sulfate [Iron (65 MG Elemental)] 325 mg PO Q48H gemfibroziL [Lopid] 600 mg PO BID Rosuvastatin Calcium 40 mg PO DAILY Spironolactone 25 mg PO DAILY Ezetimibe 10 mg PO DAILY Pantoprazole Sodium [Protonix] 40 mg PO AC-BRKFST #30 tablet. Furosemide [Lasix] 20 mg PO DAILY #30 tab Apixaban [Eliquis] 2.5 mg PO BID Ferrous Sulfate [Iron (65 MG Elemental)] 650 mg PO Q48H Amoxicillin 500 mg PO TID INSULIN ASPART (NovoLOG) [NovoLOG (formulary)] 10 unit SQ AC-TID Metoprolol Succinate (ER) [Toprol XL] 200 mg PO DAILY Discontinued Empagliflozin/Linagliptin [Glyxambi 10 mg-5 mg Tablet] 1 tab PO DAILY lisinopriL [Zestril] 1.25 mg PO DAILY Discharge Medication List Ferrous Sulfate [Iron (65 MG Elemental)] 325 mg PO Q48H 08/17/15 [History] gemfibroziL [Lopid] 600 mg PO BID 02/27/17 [History] Ezetimibe 10 mg PO DAILY 11/04/19 [History] Rosuvastatin Calcium 40 mg PO DAILY 11/04/19 [History] Spironolactone 25 mg PO DAILY 11/04/19 [History] Furosemide [Lasix] 20 mg PO DAILY #30 tab 11/10/19 [Rx] Pantoprazole Sodium [Protonix] 40 mg PO AC-BRKFST #30 tablet.dr 11/10/19 [Rx] Amoxicillin 500 mg PO TID 04/07/21 [History] Apixaban [Eliquis] 2.5 mg PO BID 04/07/21 [History] Ferrous Sulfate [Iron (65 MG Elemental)] 650 mg PO Q48H 04/07/21 [History] INSULIN ASPART (NovoLOG) [NovoLOG (formulary)] 10 unit SQ AC-TID 04/07/21 [History] Metoprolol Succinate (ER) [Toprol XL] 200 mg PO DAILY 04/07/21 [History] Ascorbic Acid [Vitamin C] 500 mg PO DAILY tab 04/11/21 [Rx] Cholecalciferol [Vitamin D3 (25 Mcg = 1000 Iu)] 25 mcg PO DAILY tablet 04/11/21 [Rx] Folic Acid 1 mg PO DAILY@1200 tab 04/11/21 [Rx] INSULIN ASPART (NovoLOG) [NovoLOG (formulary)] 0 unit SQ ACHS vial 04/11/21 [Rx] Linagliptin [Tradjenta] 5 mg PO DAILY #30 tab 04/11/21 [Rx] Zinc Sulfate [Orazinc] 220 mg PO DAILY cap 04/11/21 [Rx] Follow up Appointment(s)/Referral(s): Ivy Ventura MD [Primary Care Provider] - 1-2 days Matthew Coto MD [STAFF PHYSICIAN] - 1 Week Shilo Cruz MD [STAFF PHYSICIAN] - 2 Weeks (Urologist) Activity/Diet/Wound Care/Special Instructions: Heart healthy diet Activity is restricted until you see your doctor We recommend close monitoring of his hemoglobin Jean catheter was inserted by neurologist, Jean catheter can be discontinued when not medically necessary as per urologist Dr. cruz. Also recommended urological follow-up with Dr. cruz in 1-2 weeks Discharge Disposition: TRANSFER TO SNF/ECF
[2021-04-11 12:06] LABS: Glucose,Whole Blood 223 mg/dL (75-99)
[2021-04-11] MEDS: TAMSULOSIN 0.4 MG CAP.ER.24H PO SCH ×2 (12:34→17:46)
--- NOTE | 2021-04-11 13:02 | XR ---
EXAMINATION TYPE: XR chest 1V portable DATE OF EXAM: 04/11/2021 HISTORY: Shortness of breath. COMPARISON: 04/09/2021 TECHNIQUE: Single view of the chest is submitted. FINDINGS: Demonstrated are scattered senescent parenchymal change. Peripheral infiltrate right upper lobe and to a lesser extent left upper lobe and left lower lobe are again noted. No significant change appreciated. The heart is stable. Hilar and mediastinal structures are within normal limits. Degenerative changes are seen of the dorsal spine. IMPRESSION: 1. Peripheral infiltrate right upper lobe and to a lesser extent left upper lobe and left lower lobe are again noted. No significant change appreciated.
[2021-04-11 17:14] LABS: Glucose,Whole Blood 237 mg/dL (75-99)
[2021-04-11] MEDS: FERROUS SULFATE 325 MG TAB PO SCH (17:46)
[2021-04-11] MEDS: DEXAMETHASONE SOD PHOSPHATE 10 MG/ML 1 ML VIAL IV SCH (17:46)
--- NOTE | 2021-04-11 17:53 | PN ---
PROGRESS NOTE DATE OF SERVICE: 04/11/2021 REASON FOR FOLLOWUP: COVID-19 pneumonia. INTERVAL HISTORY: The patient is afebrile. The patient remains on room air; however, currently saturating 90% on room air compared to saturating 100% when he presented to the hospital. The patient denies having any chest pain. He does have a cough which has slightly decreased in intensity, but not bringing up any sputum. No vomiting. No abdominal pain or diarrhea. PHYSICAL EXAMINATION: Blood pressure 118/63 with a pulse of 90, temperature 98. He is 90% on room air. General description is an elderly male lying in bed in no distress. RESPIRATORY SYSTEM: Unlabored breathing with decreased intensity of breath sounds. No wheeze. HEART: S1, S2. Regular rate and rhythm. ABDOMEN: Soft. No tenderness. LABS: BUN of 24, creatinine 1.07. LDH slightly decreased at 1033. DIAGNOSTIC IMPRESSION AND PLAN: Patient with acute COVID-19 pneumonia. The patient seems to have evidence of hypoxemia now. The patient is currently out of the therapeutic window for remdesivir. He presented to hospital with 2 weeks of history and was not hypoxic initially. Will add Decadron. Chest x-ray will be repeated. Hold discharge for another 24 hours. Continue supportive care. MMODL / IJN: [id number] /
[2021-04-11 20:07] LABS: Glucose,Whole Blood 298 mg/dL (75-99)
[2021-04-12 07:38] LABS: Glucose,Whole Blood 253 mg/dL (75-99)
[2021-04-12] MEDS: INSULIN ASPART (NovoLOG) 100 UNIT/ML VIAL SQ SCH ×7 (08:38→20:04)
[2021-04-12] MEDS: FUROSEMIDE 20 MG TAB PO SCH (08:39)
[2021-04-12] MEDS: CHOLECALCIFEROL 25 MCG (1000 IU) TABLET PO SCH (08:39)
[2021-04-12] MEDS: METOPROLOL SUCCINATE (ER) 100 MG TAB.ER.24H PO SCH (08:39)
[2021-04-12] MEDS: APIXABAN 2.5 MG TABLET PO SCH ×2 (08:39→20:04)
[2021-04-12] MEDS: DEXAMETHASONE SOD PHOSPHATE 10 MG/ML 1 ML VIAL IV SCH (08:39)
[2021-04-12] MEDS: ATORVASTATIN 80 MG TAB PO SCH (08:39)
[2021-04-12] MEDS: FOLIC ACID 1 MG TAB PO SCH (08:39)
[2021-04-12] MEDS: PANTOPRAZOLE 40 MG TABLET PO SCH (08:39)
[2021-04-12] MEDS: ASCORBIC ACID 500 MG TAB PO SCH (08:39)
[2021-04-12] MEDS: ZINC SULFATE 220 MG CAP PO SCH (08:39)
[2021-04-12] MEDS: SPIRONOLACTONE 25 MG TAB PO SCH (08:39)
[2021-04-12 12:00] LABS: Glucose,Whole Blood 274 mg/dL (75-99)
--- NOTE | 2021-04-12 16:05 | PN ---
PROGRESS NOTE DATE OF SERVICE: 04/12/2021 REASON FOR FOLLOWUP: COVID-19 pneumonia. INTERVAL HISTORY: The patient is currently afebrile. The patient did require supplemental nasal cannula oxygen, currently 92% with 2 L nasal cannula. However, the patient denies any worsening shortness of breath. Patient denies having any chest pain. Did have a cough, but not bringing up any sputum. No vomiting. No abdominal pain or diarrhea. PHYSICAL EXAMINATION: Blood pressure 106/51 with a pulse of 87, temperature 97.7. He 92% on 2 L nasal cannula. General description is an elderly male lying in bed in no distress. RESPIRATORY SYSTEM: Unlabored breathing, decreased intensity of breath sounds. No wheeze. HEART: S1, S2. Regular rate and rhythm. ABDOMEN: Soft, no tenderness. LABS: No new labs have been obtained today. DIAGNOSTIC IMPRESSION AND PLAN: Patient with acute COVID-19 pneumonia. Patient admitted to the hospital with 2 weeks of symptoms and was not a candidate for remdesivir. Patient was initially not hypoxic. The patient did have hypoxemia requiring supplemental oxygen. However, respiratory status remains to be stable to continue with dexamethasone, Eliquis, zinc, ascorbic acid, and respiratory support and slowly wean off the oxygen. Continue supportive care. MMODL / IJN: [id number] /
[2021-04-12 17:13] LABS: Glucose,Whole Blood 295 mg/dL (75-99)
[2021-04-12] MEDS: TAMSULOSIN 0.4 MG CAP.ER.24H PO SCH (17:23)
[2021-04-12 20:00] LABS: Glucose,Whole Blood 359 mg/dL (75-99)
--- NOTE | 2021-04-12 23:04 | P.PN ---
Subjective This is a pleasant 80 years old male with multiple medical problems including diabetes mellitus, hypertension, hyperlipidemia, coronary artery disease status post stent placement and a I CAD, history of prostate cancer status post radiotherapy.. He was admitted with A. fib and RVR with elevated troponin who is evaluated by shingles roofer helper and thought it is due to his A. fib and covid infection. Patient also with ischemic cardiomyopathy on AICD. Patient is alert and awake. He has some tachypnea today and dry coughing, chest x-ray showing bilateral infiltrates consistent with cough and pneumonia however he is saturating 92-94% on room air. He is already on vitamin C and D and zinc. Neurology following the patient for his generalized weakness and fall. He is currently on Eliquis 2.5 mg which his home medication, also he is on metoprolol 200 mg and Lasix 20 mg orally. Today repeat chest x-ray showed chronic changes with bilateral infiltrates similar to admission. Lavern DM is admitted for his coughing. We'll keep monitoring with cardiology, infectious disease and nephrology of the case Also patient with postural hypotension with a drop of blood pressure 118/53 on supine down to 81/48 on sitting. Labs from today are unremarkable. 04/10/2021 This is a pleasant 80 years old male who was admitted initially with A. fib and RVR with elevated troponin secondary to his cardiac disease and shingles roofer helper recommended medical management. Also infectious disease team following the patient for his Covid pneumonia however he has normal respiratory distress, no significant hypoxia. Chest x-ray looks stable and infectious disease team recommended continue with the same vitamins. Patient still feels generally weak and he will benefit from ECF for rehab upon discharge per PT/OT. Neurology signed off, shingles roofer helper recommended no further workup. Patient however had urinary retention today with bladder scan showing 400 mL, no Jean catheter was placed and urology team were consulted for that reason. Patient remains with some postural hypotension. However he is on Eliquis, Lasix 20 mg daily and metoprolol. 04/12/2021 Patient not in significant respiratory distress and looks calm and awake and comfortable to certain degree even he thinks he is improving however is oxygenating still on the low side and he needs 2 L of oxygen to keep saturation around 94%, related to his active Covid infection, he remains on dexamethasone and Eliquis, besides the multivitamins protocol for Covid. Also patient blood pressure is dropping to 86/40 9 at night, therefore hold Aldactone for now, continue on metoprolol in view of his A. fib and RVR on admission, also he is on oral Lasix. Jean catheter still in place and showing clear urine Check labs in the morning Objective - Vital Signs Vital signs: Vital Signs Temp 98.1 F 04/12/21 04:00 Pulse 93 04/12/21 08:20 Resp 18 04/12/21 08:20 BP 135/73 04/12/21 08:20 Pulse Ox 96 04/12/21 08:20 Intake & Output 04/11/21 04/12/21 04/12/21 18:59 06:59 18:59 Intake Total 720 960 118 Output Total 225 1175 Balance 495 960 -1057 Weight 114.5 kg 114.5 kg Intake: Oral 720 960 118 Output: Urine 225 1175 Other: Voiding Method Indwelling Catheter Indwelling Catheter Indwelling Catheter # Bowel Movements 1 1 - Exam -GENERAL: The patient is alert and oriented x3, not in any acute distress. Generally weak HEENT: Pupils are round and equally reacting to light. EOMI. No scleral icterus. No conjunctival pallor. Normocephalic, atraumatic. No pharyngeal erythema. No thyromegaly. CARDIOVASCULAR: S1 and S2 present. No murmurs, rubs, or gallops. -PULMONARY: Chest is clear to auscultation, no wheezing or crackles. Tachypnea ABDOMEN: Soft, nontender, nondistended, normoactive bowel sounds. No palpable organomegaly. MUSCULOSKELETAL: No joint swelling or deformity. EXTREMITIES: No cyanosis, clubbing, or pedal edema. NEUROLOGICAL: Gross neurological examination did not reveal any focal deficits. SKIN: No rashes. no petechiae. - Labs CBC & Chem 7: 04/09/21 07:25 04/11/21 07:04 Labs: Abnormal Lab Results - Last 24 Hours (Table) 04/11/21 04/11/21 04/11/21 Range/Units 12:05 17:08 20:06 POC Glucose (mg/dL) 223 H 237 H 298 H (75-99) mg/dL 04/12/21 04/12/21 Range/Units 07:35 11:58 POC Glucose (mg/dL) 253 H 274 H (75-99) mg/dL Microbiology - Last 24 Hours (Table) 04/07/21 14:16 Blood Culture - Preliminary Blood No Growth after 96 hours 04/07/21 14:16 Blood Culture - Preliminary Blood No Growth after 96 hours Assessment and Plan Assessment: Acute urinary retention Covid infection with hypoxia A. fib with RVR with elevated troponin Generalized weakness and fall, being followed by neurology who signs off. Postural hypotension also may be contributing Postural hypotension Ischemic cardiomyopathy status post AICD History of coronary artery disease status post stenting Diabetes mellitus Hypertension Hyperlipidemia Plan: A pleasant 80 years old male who presents with A. fib and generalized weakness and ischemic cardiomyopathy. Continue with the Eliquis, continue with home dose of metoprolol, and Lasix per shingles roofer helper's recommendation will follow on the case closely. Hold Aldactone. Continue dexamethasone on monitor oxygen level. Continue with ID team and neurology team recommendation Continue with Jean and Flomax for urinary retention Labs and medication were reviewed.. Continue same treatment. Continue with symptomatic treatment. Resume home medication. Monitor lytes and vitals. DVT and GI prophylaxis. Further recommendations as per clinical course of the patient DVT prophylaxis: Subcutaneous heparin GI Prophylaxis: Ppi PT/OT: Pending Prognosis is guarded
--- NOTE | 2021-04-13 07:28 | XR ---
EXAMINATION TYPE: XR chest 1V DATE OF EXAM: 04/13/2021 CLINICAL HISTORY: Difficulty breathing progress study. TECHNIQUE: Single AP portable upright view of the chest is obtained. COMPARISON: Chest x-ray from 2 days earlier and older studies FINDINGS: Heart size stable and upper limits of normal with with multilead pacemaker/defibrillator r edemonstrated. Persistent multifocal opacities greatest in the peripheral right upper lung and periph eral left mid to lower lung. Persistent patchy lateral left basilar opacity. Osseous structures remai n demineralized. IMPRESSION: Cardiomegaly and chronic parenchymal changes with persistent multifocal bilateral opaciti es consistent with covid-19 infection. No significant change from most recent x-ray.
[2021-04-13 07:59] LABS: Basophils % (A) 0 %; Eosinophils % (A) 0 %; HCT 37.1 % (39.0-53.0); HGB 12.6 gm/dL (13.0-17.5); Lymphocytes # (A) 0.5 k/uL (1.0-4.8); Lymphocytes % (A) 5 %; MCH 29.5 pg (25.0-35.0); MCV 86.8 fL (80.0-100.0); Mean Platelet Volume 9.1; Monocytes # (A) 0.5 k/uL (0-1.0); Monocytes % (A) 5 %; Neutrophils # (A) 8.4 k/uL (1.3-7.7); Neutrophils % (A) 89 %; Platelet Count 266 k/uL (150-450); RBC 4.28 m/uL (4.30-5.90); RDW 13.7 % (11.5-15.5); WBC 9.5 k/uL (3.8-10.6)
[2021-04-13 08:02] LABS: Glucose,Whole Blood 261 mg/dL (75-99)
[2021-04-13 08:11] LABS: C Reactive Protein 3.7 mg/dL (<1.0); Calcium 8.8 mg/dL (8.4-10.2); Magnesium 1.9 mg/dL (1.6-2.3); Potassium 4.7 mmol/L (3.5-5.1)
[2021-04-13] MEDS: INSULIN ASPART (NovoLOG) 100 UNIT/ML VIAL SQ SCH ×7 (08:18→20:41)
[2021-04-13] MEDS: ATORVASTATIN 80 MG TAB PO SCH (08:55)
[2021-04-13] MEDS: METOPROLOL SUCCINATE (ER) 100 MG TAB.ER.24H PO SCH (08:55)
[2021-04-13] MEDS: PANTOPRAZOLE 40 MG TABLET PO SCH (08:55)
[2021-04-13] MEDS: DEXAMETHASONE SOD PHOSPHATE 10 MG/ML 1 ML VIAL IV SCH (08:55)
[2021-04-13] MEDS: APIXABAN 2.5 MG TABLET PO SCH ×2 (08:55→20:41)
[2021-04-13] MEDS: ASCORBIC ACID 500 MG TAB PO SCH (08:55)
[2021-04-13] MEDS: CHOLECALCIFEROL 25 MCG (1000 IU) TABLET PO SCH (08:55)
[2021-04-13] MEDS: ZINC SULFATE 220 MG CAP PO SCH (08:55)
[2021-04-13] MEDS: FUROSEMIDE 20 MG TAB PO SCH (08:55)
[2021-04-13 12:24] LABS: Glucose,Whole Blood 226 mg/dL (75-99)
[2021-04-13 12:35] LABS: Ferritin 335.7 ng/mL (22.0-322.0)
[2021-04-13] MEDS: FOLIC ACID 1 MG TAB PO SCH (12:35)
[2021-04-13] MEDS: guaiFENesin-DM 100-10MG/5ML 10 ML CUP PO PRN (14:40)
--- NOTE | 2021-04-13 15:52 | P.PN ---
Subjective This is a pleasant 80 years old male with multiple medical problems including diabetes mellitus, hypertension, hyperlipidemia, coronary artery disease status post stent placement and a I CAD, history of prostate cancer status post radiotherapy.. He was admitted with A. fib and RVR with elevated troponin who is evaluated by insurance application investigator and thought it is due to his A. fib and covid infection. Patient also with ischemic cardiomyopathy on AICD. Patient is alert and awake. He has some tachypnea today and dry coughing, chest x-ray showing bilateral infiltrates consistent with cough and pneumonia however he is saturating 92-94% on room air. He is already on vitamin C and D and zinc. Neurology following the patient for his generalized weakness and fall. He is currently on Eliquis 2.5 mg which his home medication, also he is on metoprolol 200 mg and Lasix 20 mg orally. Today repeat chest x-ray showed chronic changes with bilateral infiltrates similar to admission. Lavern DM is admitted for his coughing. We'll keep monitoring with cardiology, infectious disease and nephrology of the case Also patient with postural hypotension with a drop of blood pressure 118/53 on supine down to 81/48 on sitting. Labs from today are unremarkable. 04/10/2021 This is a pleasant 80 years old male who was admitted initially with A. fib and RVR with elevated troponin secondary to his cardiac disease and insurance application investigator recommended medical management. Also infectious disease team following the patient for his Covid pneumonia however he has normal respiratory distress, no significant hypoxia. Chest x-ray looks stable and infectious disease team recommended continue with the same vitamins. Patient still feels generally weak and he will benefit from ECF for rehab upon discharge per PT/OT. Neurology signed off, insurance application investigator recommended no further workup. Patient however had urinary retention today with bladder scan showing 400 mL, no Jean catheter was placed and urology team were consulted for that reason. Patient remains with some postural hypotension. However he is on Eliquis, Lasix 20 mg daily and metoprolol. 04/12/2021 Patient not in significant respiratory distress and looks calm and awake and comfortable to certain degree even he thinks he is improving however is oxygenating still on the low side and he needs 2 L of oxygen to keep saturation around 94%, related to his active Covid infection, he remains on dexamethasone and Eliquis, besides the multivitamins protocol for Covid. Also patient blood pressure is dropping to 86/40 9 at night, therefore hold Aldactone for now, continue on metoprolol in view of his A. fib and RVR on admission, also he is on oral Lasix. Jean catheter still in place and showing clear urine Check labs in the morning 04/13/2021 Patient is awake and alert, with no significant respiratory distress while at rest however he still needs 2 L of oxygen to keep his saturation of oxygen at low 90s. Jean catheter is in place and draining yellow urine. No new complaints. Patient still been treated for Covid infection and pneumonia with dexamethasone, on Rik Eliquis, multiple vitamins of vitamin C, D and zinc. Last night his blood pressure was on the low side 86/49 and still have positive orthostatic vitals so I held his Aldactone, patient remains on metoprolol as he has history of A. fib and RVR on admission. Continue with dexamethasone and Eliquis. Monitor blood pressure Objective - Vital Signs Vital signs: Vital Signs Temp 97.8 F 04/13/21 08:00 Pulse 73 04/13/21 12:35 Resp 18 04/13/21 13:45 BP 113/56 04/13/21 12:35 Pulse Ox 93 L 04/13/21 12:35 Intake & Output 04/12/21 04/13/21 04/13/21 18:59 06:59 18:59 Intake Total 678 Output Total 1175 1020 700 Balance -497 -1020 -700 Weight 114.5 kg 94.5 kg Intake: IV 80 0.9 80 Oral 598 Output: Urine 1175 1020 700 Other: Voiding Method Indwelling Catheter Indwelling Catheter Indwelling Catheter # Voids 1 # Bowel Movements 2 - Exam -GENERAL: The patient is alert and oriented x3, not in any acute distress. Generally weak HEENT: Pupils are round and equally reacting to light. EOMI. No scleral icterus. No conjunctival pallor. Normocephalic, atraumatic. No pharyngeal erythema. No thyromegaly. CARDIOVASCULAR: S1 and S2 present. No murmurs, rubs, or gallops. -PULMONARY: Chest is clear to auscultation, no wheezing or crackles. Tachypnea ABDOMEN: Soft, nontender, nondistended, normoactive bowel sounds. No palpable organomegaly. MUSCULOSKELETAL: No joint swelling or deformity. EXTREMITIES: No cyanosis, clubbing, or pedal edema. NEUROLOGICAL: Gross neurological examination did not reveal any focal deficits. SKIN: No rashes. no petechiae. - Labs CBC & Chem 7: 04/13/21 07:15 04/13/21 07:15 Labs: Abnormal Lab Results - Last 24 Hours (Table) 04/12/21 04/12/21 04/13/21 Range/Units 17:11 19:59 07:15 RBC 4.28 L (4.30-5.90) m/uL Hgb 12.6 L (13.0-17.5) gm/dL Hct 37.1 L (39.0-53.0) % Neutrophils # 8.4 H (1.3-7.7) k/uL Lymphocytes # 0.5 L (1.0-4.8) k/uL D-Dimer (<0.60) mg/L FEU Sodium (137-145) mmol/L BUN (9-20) mg/dL Glucose (74-99) mg/dL POC Glucose (mg/dL) 295 H 359 H (75-99) mg/dL Ferritin (22.0-322.0) ng/mL Lactate Dehydrogenase (313-618) U/L C-Reactive Protein (<1.0) mg/dL 04/13/21 04/13/21 04/13/21 Range/Units 07:15 07:15 07:57 RBC (4.30-5.90) m/uL Hgb (13.0-17.5) gm/dL Hct (39.0-53.0) % Neutrophils # (1.3-7.7) k/uL Lymphocytes # (1.0-4.8) k/uL D-Dimer 0.71 H (<0.60) mg/L FEU Sodium 135 L (137-145) mmol/L BUN 35 H (9-20) mg/dL Glucose 244 H (74-99) mg/dL POC Glucose (mg/dL) 261 H (75-99) mg/dL Ferritin 335.7 H (22.0-322.0) ng/mL Lactate Dehydrogenase 939 H (313-618) U/L C-Reactive Protein 3.7 H (<1.0) mg/dL 04/13/21 Range/Units 12:21 RBC (4.30-5.90) m/uL Hgb (13.0-17.5) gm/dL Hct (39.0-53.0) % Neutrophils # (1.3-7.7) k/uL Lymphocytes # (1.0-4.8) k/uL D-Dimer (<0.60) mg/L FEU Sodium (137-145) mmol/L BUN (9-20) mg/dL Glucose (74-99) mg/dL POC Glucose (mg/dL) 226 H (75-99) mg/dL Ferritin (22.0-322.0) ng/mL Lactate Dehydrogenase (313-618) U/L C-Reactive Protein (<1.0) mg/dL Microbiology - Last 24 Hours (Table) 04/07/21 14:16 Blood Culture - Preliminary Blood No Growth after 120 hours 04/07/21 14:16 Blood Culture - Preliminary Blood No Growth after 120 hours Assessment and Plan Assessment: Acute urinary retention Covid infection with hypoxia A. fib with RVR with elevated troponin Generalized weakness and fall, being followed by neurology who signs off. Postural hypotension also may be contributing Postural hypotension Ischemic cardiomyopathy status post AICD History of coronary artery disease status post stenting Diabetes mellitus Hypertension Hyperlipidemia Plan: A pleasant 80 years old male who presents with A. fib and generalized weakness and ischemic cardiomyopathy. Continue with the Eliquis, continue with home dose of metoprolol, and Lasix per insurance application investigator's recommendation will follow on the case closely. Hold Aldactone. Continue dexamethasone on monitor oxygen level. Continue with ID team and neurology team recommendation Continue with Jean and Flomax for urinary retention Labs and medication were reviewed.. Continue same treatment. Continue with symptomatic treatment. Resume home medication. Monitor lytes and vitals. DVT and GI prophylaxis. Further recommendations as per clinical course of the pat ient DVT prophylaxis: Subcutaneous heparin GI Prophylaxis: Ppi PT/OT: Pending Prognosis is guarded
[2021-04-13 17:21] LABS: Glucose,Whole Blood 341 mg/dL (75-99)
[2021-04-13] MEDS: TAMSULOSIN 0.4 MG CAP.ER.24H PO SCH (17:36)
[2021-04-13] MEDS: FERROUS SULFATE 325 MG TAB PO SCH (17:36)
[2021-04-13 20:20] LABS: Glucose,Whole Blood 298 mg/dL (75-99)
--- NOTE | 2021-04-13 23:36 | PN ---
PROGRESS NOTE DATE OF SERVICE: 04/13/2021 REASON FOR FOLLOWUP: COVID-19 pneumonia. INTERVAL HISTORY: Patient is afebrile. The patient mentioned breathing comfortably. He still requiring supplemental oxygen from 2 to 4 L. The patient denies any chest pain. Did have a cough, not bringing any sputum. No vomiting. No abdominal pain. No diarrhea. PHYSICAL EXAMINATION: Blood pressure is 121/59, pulse of 70, temperature 97.5. He is 95% on 2 L nasal cannula. General description is an elderly male lying in bed in no distress. Respiratory system: Unlabored breathing, decreased intensity of breath sounds at the bases, no wheeze. Heart S1, S2. Regular rate and rhythm. ABDOMEN: Soft, no tenderness. LABS: Hemoglobin is 12.6, white count 9.4, BUN of 35, creatinine 1.11. DIAGNOSTIC IMPRESSION AND PLAN: Patient with acute COVID-19 pneumonia in this patient to continue with Eliquis, Decadron, zinc and ascorbic acid. Advise incentive spirometry and monitor clinical course closely. Continue supportive care. MMODL / IJN: [id number] /
[2021-04-14 06:14] LABS: Glucose,Whole Blood 212 mg/dL (75-99)
[2021-04-14] MEDS: INSULIN ASPART (NovoLOG) 100 UNIT/ML VIAL SQ SCH ×7 (06:56→21:22)
[2021-04-14] MEDS: METOPROLOL SUCCINATE (ER) 100 MG TAB.ER.24H PO SCH (08:33)
[2021-04-14] MEDS: CHOLECALCIFEROL 25 MCG (1000 IU) TABLET PO SCH (08:33)
[2021-04-14] MEDS: PANTOPRAZOLE 40 MG TABLET PO SCH (08:33)
[2021-04-14] MEDS: ZINC SULFATE 220 MG CAP PO SCH (08:33)
[2021-04-14] MEDS: FUROSEMIDE 20 MG TAB PO SCH (08:33)
[2021-04-14] MEDS: ATORVASTATIN 80 MG TAB PO SCH (08:33)
[2021-04-14] MEDS: ASCORBIC ACID 500 MG TAB PO SCH (08:33)
[2021-04-14] MEDS: DEXAMETHASONE SOD PHOSPHATE 10 MG/ML 1 ML VIAL IV SCH (08:34)
[2021-04-14] MEDS: APIXABAN 2.5 MG TABLET PO SCH ×2 (08:34→19:27)
[2021-04-14 12:31] LABS: Glucose,Whole Blood 287 mg/dL (75-99)
[2021-04-14] MEDS: guaiFENesin-DM 100-10MG/5ML 10 ML CUP PO PRN (12:53)
[2021-04-14] MEDS: FOLIC ACID 1 MG TAB PO SCH (12:53)
--- NOTE | 2021-04-14 14:47 | P.PN ---
Subjective This is a pleasant 80 years old male with multiple medical problems including diabetes mellitus, hypertension, hyperlipidemia, coronary artery disease status post stent placement and a I CAD, history of prostate cancer status post radiotherapy.. He was admitted with A. fib and RVR with elevated troponin who is evaluated by fusion operator and thought it is due to his A. fib and covid infection. Patient also with ischemic cardiomyopathy on AICD. Patient is alert and awake. He has some tachypnea today and dry coughing, chest x-ray showing bilateral infiltrates consistent with cough and pneumonia however he is saturating 92-94% on room air. He is already on vitamin C and D and zinc. Neurology following the patient for his generalized weakness and fall. He is currently on Eliquis 2.5 mg which his home medication, also he is on metoprolol 200 mg and Lasix 20 mg orally. Today repeat chest x-ray showed chronic changes with bilateral infiltrates similar to admission. Lavern DM is admitted for his coughing. We'll keep monitoring with cardiology, infectious disease and nephrology of the case Also patient with postural hypotension with a drop of blood pressure 118/53 on supine down to 81/48 on sitting. Labs from today are unremarkable. 04/10/2021 This is a pleasant 80 years old male who was admitted initially with A. fib and RVR with elevated troponin secondary to his cardiac disease and fusion operator recommended medical management. Also infectious disease team following the patient for his Covid pneumonia however he has normal respiratory distress, no significant hypoxia. Chest x-ray looks stable and infectious disease team recommended continue with the same vitamins. Patient still feels generally weak and he will benefit from ECF for rehab upon discharge per PT/OT. Neurology signed off, fusion operator recommended no further workup. Patient however had urinary retention today with bladder scan showing 400 mL, no Jean catheter was placed and urology team were consulted for that reason. Patient remains with some postural hypotension. However he is on Eliquis, Lasix 20 mg daily and metoprolol. 04/12/2021 Patient not in significant respiratory distress and looks calm and awake and comfortable to certain degree even he thinks he is improving however is oxygenating still on the low side and he needs 2 L of oxygen to keep saturation around 94%, related to his active Covid infection, he remains on dexamethasone and Eliquis, besides the multivitamins protocol for Covid. Also patient blood pressure is dropping to 86/40 9 at night, therefore hold Aldactone for now, continue on metoprolol in view of his A. fib and RVR on admission, also he is on oral Lasix. Jean catheter still in place and showing clear urine Check labs in the morning 04/13/2021 Patient is awake and alert, with no significant respiratory distress while at rest however he still needs 2 L of oxygen to keep his saturation of oxygen at low 90s. Jean catheter is in place and draining yellow urine. No new complaints. Patient still been treated for Covid infection and pneumonia with dexamethasone, on Rik Eliquis, multiple vitamins of vitamin C, D and zinc. Last night his blood pressure was on the low side 86/49 and still have positive orthostatic vitals so I held his Aldactone, patient remains on metoprolol as he has history of A. fib and RVR on admission. Continue with dexamethasone and Eliquis. Monitor blood pressure 04/14/2021 Patient is a still little short of breath and weak, he is tachypneic. He needs 2-4 L of oxygen to keep his saturation in the low 90s, at room air he dropped to 80s percent. He denies chest pain. No significant component. He is hemodynamically stable but he has postural drop in blood pressure bear urement from sitting to standing. Patient denies symptoms of postural dizziness or difficulty. Vitals are stable, no labs today Patient remains on dexamethasone, home dose of Eliquis, multiple vitamins Objective - Vital Signs Vital signs: Vital Signs Temp 98 F 04/14/21 08:00 Pulse 76 04/14/21 12:53 Resp 16 04/14/21 13:49 BP 112/58 04/14/21 12:53 Pulse Ox 91 L 04/14/21 12:53 Intake & Output 04/13/21 04/14/21 04/14/21 18:59 06:59 18:59 Intake Total 250 Output Total 700 1020 900 Balance -450 -1020 -900 Weight 92.5 kg Intake: Oral 250 Output: Urine 700 1020 900 Other: Voiding Method Indwelling Catheter Indwelling Catheter Indwelling Catheter - Exam -GENERAL: The patient is alert and oriented x3, not in any acute distress. Generally weak HEENT: Pupils are round and equally reacting to light. EOMI. No scleral icterus. No conjunctival pallor. Normocephalic, atraumatic. No pharyngeal erythema. No thyromegaly. CARDIOVASCULAR: S1 and S2 present. No murmurs, rubs, or gallops. -PULMONARY: Chest is clear to auscultation, no wheezing or crackles. Tachypnea ABDOMEN: Soft, nontender, nondistended, normoactive bowel sounds. No palpable organomegaly. MUSCULOSKELETAL: No joint swelling or deformity. EXTREMITIES: No cyanosis, clubbing, or pedal edema. NEUROLOGICAL: Gross neurological examination did not reveal any focal deficits. SKIN: No rashes. no petechiae. - Labs CBC & Chem 7: 04/13/21 07:15 04/13/21 07:15 Labs: Abnormal Lab Results - Last 24 Hours (Table) 04/13/21 04/13/21 04/14/21 Range/Units 17:09 20:17 06:12 POC Glucose (mg/dL) 341 H 298 H 212 H (75-99) mg/dL 04/14/21 Range/Units 12:19 POC Glucose (mg/dL) 287 H (75-99) mg/dL Microbiology - Last 24 Hours (Table) 04/07/21 14:16 Blood Culture - Final Blood No Growth after 144 hours 04/07/21 14:16 Blood Culture - Final Blood No Growth after 144 hours Assessment and Plan Assessment: Acute urinary retention Covid infection with hypoxia A. fib with RVR with elevated troponin Generalized weakness and fall, being followed by neurology who signs off. Postural hypotension also may be contributing Postural hypotension Ischemic cardiomyopathy status post AICD History of coronary artery disease status post stenting Diabetes mellitus Hypertension Hyperlipidemia Plan: A pleasant 80 years old male who presents with A. fib and generalized weakness and ischemic cardiomyopathy. Continue with the Eliquis, continue with home dose of metoprolol, and Lasix per fusion operator's recommendation will follow on the case closely. Hold Aldactone. Continue dexamethasone on monitor oxygen level. Continue with ID team and neurology team recommendation Continue with Jean and Flomax for urinary retention Labs and medication were reviewed.. Continue same treatment. Continue with symptomatic treatment. Resume home medication. Monitor lytes and vitals. DVT and GI prophylaxis. Further recommendations as per clinical course of the pat ient DVT prophylaxis: Subcutaneous heparin GI Prophylaxis: Ppi PT/OT: Pending Prognosis is guarded
[2021-04-14 17:06] LABS: Glucose,Whole Blood 319 mg/dL (75-99)
[2021-04-14] MEDS: TAMSULOSIN 0.4 MG CAP.ER.24H PO SCH (17:25)
[2021-04-14 21:16] LABS: Glucose,Whole Blood 311 mg/dL (75-99)
--- NOTE | 2021-04-15 05:47 | PN ---
PROGRESS NOTE DATE OF SERVICE: 04/14/2021. REASON FOR FOLLOWUP: COVID-19 pneumonia. INTERVAL HISTORY: Patient is afebrile. The patient is breathing comfortably. However, seems to be requiring more supplemental oxygen. The patient denies any chest pain. No worsening cough. No abdominal pain. No diarrhea. EXAMINATION: Blood pressure 106/54 with a pulse of 74, temperature 97.7. He is 94% on 4 L nasal cannula. General description is an elderly male up in the chair in no distress. Respiratory system: Unlabored breathing, decreased breath sounds in the bases. No wheeze. Heart S1, S2. Regular rate and rhythm. ABDOMEN: Soft, no tenderness. LABS: No new labs have been obtained today. DIAGNOSTIC IMPRESSION AND PLAN: Patient with acute COVID-19 pneumonia in this patient seems to be clinically doing well. However, requiring more supplemental oxygen. We will repeat a chest x-ray and inflammatory markers tomorrow. We will continue with Decadron, Eliquis and Ascorbic acid and monitor clinical course closely. Continue supportive care. MMODL / IJN: [id number] /
[2021-04-15 06:05] LABS: Glucose,Whole Blood 208 mg/dL (75-99)
[2021-04-15] MEDS: INSULIN ASPART (NovoLOG) 100 UNIT/ML VIAL SQ SCH ×7 (06:15→20:12)
--- NOTE | 2021-04-15 07:52 | XR ---
EXAMINATION TYPE: XR chest 1V portable DATE OF EXAM: 04/15/2021 CLINICAL HISTORY: Difficulty breathing and pneumonia progress study. TECHNIQUE: Single AP portable upright view of the chest is obtained. COMPARISON: Chest x-ray from 2 days earlier and older studies FINDINGS: Heart size stable and upper limits of normal with with multilead pacemaker/defibrillator r edemonstrated. Persistent multifocal opacities greatest in the peripheral right upper lung and periph eral left mid to lower lung. Osseous structures remain demineralized. IMPRESSION: Cardiomegaly and chronic parenchymal changes with persistent multifocal bilateral predomi nantly peripheral opacities consistent with covid-19 infection. No significant change from most recen t x-ray.
[2021-04-15 08:11] LABS: Albumin 3.1 g/dL (3.5-5.0); C Reactive Protein 7.5 mg/dL (<1.0); Calcium 8.9 mg/dL (8.4-10.2); Potassium 4.2 mmol/L (3.5-5.1); Total Bilirubin 0.4 mg/dL (0.2-1.3); Total Protein 6.2 g/dL (6.3-8.2)
[2021-04-15] MEDS: METOPROLOL SUCCINATE (ER) 100 MG TAB.ER.24H PO SCH (10:35)
[2021-04-15] MEDS: DEXAMETHASONE SOD PHOSPHATE 10 MG/ML 1 ML VIAL IV SCH (10:35)
[2021-04-15] MEDS: ATORVASTATIN 80 MG TAB PO SCH (10:36)
[2021-04-15] MEDS: ASCORBIC ACID 500 MG TAB PO SCH (10:36)
[2021-04-15] MEDS: FOLIC ACID 1 MG TAB PO SCH (10:36)
[2021-04-15] MEDS: FUROSEMIDE 20 MG TAB PO SCH (10:36)
[2021-04-15] MEDS: CHOLECALCIFEROL 25 MCG (1000 IU) TABLET PO SCH (10:36)
[2021-04-15] MEDS: PANTOPRAZOLE 40 MG TABLET PO SCH (10:36)
[2021-04-15] MEDS: APIXABAN 2.5 MG TABLET PO SCH ×2 (10:36→20:12)
[2021-04-15] MEDS: ZINC SULFATE 220 MG CAP PO SCH (10:36)
[2021-04-15 12:19] LABS: Glucose,Whole Blood 327 mg/dL (75-99)
[2021-04-15 17:29] LABS: Glucose,Whole Blood 364 mg/dL (75-99)
[2021-04-15] MEDS: TAMSULOSIN 0.4 MG CAP.ER.24H PO SCH (17:29)
[2021-04-15] MEDS: FERROUS SULFATE 325 MG TAB PO SCH (17:29)
[2021-04-15 20:10] LABS: Glucose,Whole Blood 511 mg/dL (75-99)
[2021-04-15 20:10] LABS: Glucose,Whole Blood 507 mg/dL (75-99)
--- NOTE | 2021-04-15 23:38 | P.PN ---
Subjective This is a pleasant 80 years old male with multiple medical problems including diabetes mellitus, hypertension, hyperlipidemia, coronary artery disease status post stent placement and a I CAD, history of prostate cancer status post radiotherapy.. He was admitted with A. fib and RVR with elevated troponin who is evaluated by intraoperative neuro tech and thought it is due to his A. fib and covid infection. Patient also with ischemic cardiomyopathy on AICD. Patient is alert and awake. He has some tachypnea today and dry coughing, chest x-ray showing bilateral infiltrates consistent with cough and pneumonia however he is saturating 92-94% on room air. He is already on vitamin C and D and zinc. Neurology following the patient for his generalized weakness and fall. He is currently on Eliquis 2.5 mg which his home medication, also he is on metoprolol 200 mg and Lasix 20 mg orally. Today repeat chest x-ray showed chronic changes with bilateral infiltrates similar to admission. Lavern DM is admitted for his coughing. We'll keep monitoring with cardiology, infectious disease and nephrology of the case Also patient with postural hypotension with a drop of blood pressure 118/53 on supine down to 81/48 on sitting. Labs from today are unremarkable. 04/10/2021 This is a pleasant 80 years old male who was admitted initially with A. fib and RVR with elevated troponin secondary to his cardiac disease and intraoperative neuro tech recommended medical management. Also infectious disease team following the patient for his Covid pneumonia however he has normal respiratory distress, no significant hypoxia. Chest x-ray looks stable and infectious disease team recommended continue with the same vitamins. Patient still feels generally weak and he will benefit from ECF for rehab upon discharge per PT/OT. Neurology signed off, intraoperative neuro tech recommended no further workup. Patient however had urinary retention today with bladder scan showing 400 mL, no Jean catheter was placed and urology team were consulted for that reason. Patient remains with some postural hypotension. However he is on Eliquis, Lasix 20 mg daily and metoprolol. 04/12/2021 Patient not in significant respiratory distress and looks calm and awake and comfortable to certain degree even he thinks he is improving however is oxygenating still on the low side and he needs 2 L of oxygen to keep saturation around 94%, related to his active Covid infection, he remains on dexamethasone and Eliquis, besides the multivitamins protocol for Covid. Also patient blood pressure is dropping to 86/40 9 at night, therefore hold Aldactone for now, continue on metoprolol in view of his A. fib and RVR on admission, also he is on oral Lasix. Jean catheter still in place and showing clear urine Check labs in the morning 04/13/2021 Patient is awake and alert, with no significant respiratory distress while at rest however he still needs 2 L of oxygen to keep his saturation of oxygen at low 90s. Jean catheter is in place and draining yellow urine. No new complaints. Patient still been treated for Covid infection and pneumonia with dexamethasone, on Rik Eliquis, multiple vitamins of vitamin C, D and zinc. Last night his blood pressure was on the low side 86/49 and still have positive orthostatic vitals so I held his Aldactone, patient remains on metoprolol as he has history of A. fib and RVR on admission. Continue with dexamethasone and Eliquis. Monitor blood pressure 04/14/2021 Patient is a still little short of breath and weak, he is tachypneic. He needs 2-4 L of oxygen to keep his saturation in the low 90s, at room air he dropped to 80s percent. He denies chest pain. No significant component. He is hemodynamically stable but he has postural drop in blood pressure bear urement from sitting to standing. Patient denies symptoms of postural dizziness or difficulty. Vitals are stable, no labs today Patient remains on dexamethasone, home dose of Eliquis, multiple vitamins 04/15/2021 Patient not in distress, is still needs 4 L of oxygen to keep saturation around 92% which is slight worsening compared to couple days ago Weakness improving. Still has Jean catheter with yellow urine. Labs look stable including d-dimer around the same 1.2, elevated more than 500 while he is on steroids area currently he's only on 10 units of NovoLog with meals. We will add 18 units of Levemir. Monitor glucose and continue with insulin sliding scale. Chest x-ray showing the same chronic bilateral infiltrates consistent with COVID-19. Plancalcitonin is normal Patient currently is on Eliquis, multiple vitamins, dexamethasone Aldactone was held for patient is with postural hypotension although it's a symptomatic for most part of it Objective - Vital Signs Vital signs: Vital Signs Temp 97.6 F 04/15/21 20:00 Pulse 80 04/15/21 20:00 Resp 17 04/15/21 20:00 BP 112/53 04/15/21 20:00 Pulse Ox 93 L 04/15/21 20:00 Intake & Output 04/15/21 04/15/21 04/16/21 06:59 18:59 06:59 Intake Total 472 Output Total 850 1475 700 Balance -850 -1003 -700 Weight 78.5 kg Intake: Oral 472 Output: Urine 850 1475 700 Other: Voiding Method Indwelling Catheter Indwelling Catheter # Bowel Movements 1 - Exam -GENERAL: The patient is alert and oriented x3, not in any acute distress. Generally weak HEENT: Pupils are round and equally reacting to light. EOMI. No scleral icterus. No conjunctival pallor. Normocephalic, atraumatic. No pharyngeal erythema. No thyromegaly. CARDIOVASCULAR: S1 and S2 present. No murmurs, rubs, or gallops. -PULMONARY: Chest is clear to auscultation, no wheezing or crackles. Tachypnea ABDOMEN: Soft, nontender, nondistended, normoactive bowel sounds. No palpable organomegaly. MUSCULOSKELETAL: No joint swelling or deformity. EXTREMITIES: No cyanosis, clubbing, or pedal edema. NEUROLOGICAL: Gross neurological examination did not reveal any focal deficits. SKIN: No rashes. no petechiae. - Labs CBC & Chem 7: 04/13/21 07:15 04/15/21 07:26 Labs: Abnormal Lab Results - Last 24 Hours (Table) 04/14/21 04/15/21 04/15/21 Range/Units 21:15 06:02 07:26 D-Dimer 1.26 H (<0.60) mg/L FEU Sodium (137-145) mmol/L BUN (9-20) mg/dL Glucose (74-99) mg/dL POC Glucose (mg/dL) 311 H 208 H (75-99) mg/dL Lactate Dehydrogenase (313-618) U/L C-Reactive Protein (<1.0) mg/dL Total Protein (6.3-8.2) g/dL Albumin (3.5-5.0) g/dL 04/15/21 04/15/21 04/15/21 Range/Units 07:26 12:14 17:18 D-Dimer (<0.60) mg/L FEU Sodium 135 L (137-145) mmol/L BUN 26 H (9-20) mg/dL Glucose 210 H (74-99) mg/dL POC Glucose (mg/dL) 327 H 364 H (75-99) mg/dL Lactate Dehydrogenase 872 H (313-618) U/L C-Reactive Protein 7.5 H (<1.0) mg/dL Total Protein 6.2 L (6.3-8.2) g/dL Albumin 3.1 L (3.5-5.0) g/dL 04/15/21 04/15/21 Range/Units 20:06 20:08 D-Dimer (<0.60) mg/L FEU Sodium (137-145) mmol/L BUN (9-20) mg/dL Glucose (74-99) mg/dL POC Glucose (mg/dL) 507 H 511 H (75-99) mg/dL Lactate Dehydrogenase (313-618) U/L C-Reactive Protein (<1.0) mg/dL Total Protein (6.3-8.2) g/dL Albumin (3.5-5.0) g/dL Assessment and Plan Assessment: Acute urinary retention Covid infection with hypoxia A. fib with RVR with elevated troponin Generalized weakness and fall, being followed by neurology who signs off. Postural hypotension also may be contributing Postural hypotension Ischemic cardiomyopathy status post AICD History of coronary artery disease status post stenting Diabetes mellitus Hypertension Hyperlipidemia Plan: A pleasant 80 years old male who presents with A. fib and generalized weakness and ischemic cardiomyopathy. Continue with the Eliquis, continue with home dose of metoprolol, and Lasix per intraoperative neuro tech's recommendation will follow on the case closely. Hold Aldactone. Continue dexamethasone on monitor oxygen level. Continue with ID team and neurology team recommendation Continue with Jean and Flomax for urinary retention Labs and medication were reviewed.. Continue same treatment. Continue with symptomatic treatment. Resume home medication. Monitor lytes and vitals. DVT and GI prophylaxis. Further recommendations as per clinical course of the patient DVT prophylaxis: Subcutaneous heparin GI Prophylaxis: Ppi PT/OT: Pending Prognosis is guarded
[2021-04-15] MEDS ORDERED: INSULIN DETEMIR (LEVEMIR) 100 UNIT/ML SYR SQ SCH (23:45)
[2021-04-16 00:13] LABS: Glucose,Whole Blood 261 mg/dL (75-99)
--- NOTE | 2021-04-16 04:06 | PN ---
PROGRESS NOTE DATE OF SERVICE: 04/15/2021. REASON FOR FOLLOW UP: COVID-19 pneumonia. INTERVAL HISTORY: Patient is currently afebrile. The patient is breathing comfortably, still requiring some oxygen. Denies having any chest pain or worsening cough. No abdominal pain. No diarrhea. PHYSICAL EXAMINATION: Blood pressure 112/53 with a pulse of 80, temperature of 97.6. He is 93% on 4 L nasal cannula. General description is an elderly male up in the in no distress. Respiratory system: Unlabored breathing, decreased intensity in breath sounds. No wheeze. Heart S1, S2. Regular rate and rhythm. Abdomen soft, no tenderness. LABS: BUN of 26, creatinine 0.95. D-dimer is 1.26. The patient LDH has come down to 872. Procalcitonin normal. CRP is down. Chest x-ray did not show significant changes. DIAGNOSTIC IMPRESSION AND PLAN: Patient with acute COVID-19 infection in this patient seemed to have shown clinical improvement. He is currently covered with Eliquis, dexamethasone, zinc, and ascorbic acid. Encouraged to increase his incentive spirometry. No need for systemic antibiotic. MMODL / IJN: [id number] /
[2021-04-16 06:17] LABS: Glucose,Whole Blood 246 mg/dL (75-99)
[2021-04-16] MEDS: INSULIN ASPART (NovoLOG) 100 UNIT/ML VIAL SQ SCH ×7 (06:18→20:44)
[2021-04-16] MEDS: DEXAMETHASONE SOD PHOSPHATE 10 MG/ML 1 ML VIAL IV SCH (09:37)
[2021-04-16] MEDS: ASCORBIC ACID 500 MG TAB PO SCH (09:38)
[2021-04-16] MEDS: FUROSEMIDE 20 MG TAB PO SCH (09:38)
[2021-04-16] MEDS: ZINC SULFATE 220 MG CAP PO SCH (09:38)
[2021-04-16] MEDS: ATORVASTATIN 80 MG TAB PO SCH (09:38)
[2021-04-16] MEDS: FOLIC ACID 1 MG TAB PO SCH (09:38)
[2021-04-16] MEDS: METOPROLOL SUCCINATE (ER) 100 MG TAB.ER.24H PO SCH (09:38)
[2021-04-16] MEDS: CHOLECALCIFEROL 25 MCG (1000 IU) TABLET PO SCH (09:38)
[2021-04-16] MEDS: PANTOPRAZOLE 40 MG TABLET PO SCH (09:38)
[2021-04-16] MEDS: APIXABAN 2.5 MG TABLET PO SCH ×2 (09:38→20:44)
[2021-04-16 12:00] LABS: Glucose,Whole Blood 200 mg/dL (75-99)
--- NOTE | 2021-04-16 12:40 | PN ---
PROGRESS NOTE DATE OF SERVICE: 04/16/2021 REASON FOR FOLLOWUP: COVID-19 pneumonia. INTERVAL HISTORY: The patient is afebrile. The patient is breathing more comfortably. The patient denies having any chest pain. Cough has decreased intensity. No nausea, no vomiting. No abdominal pain, no diarrhea. PHYSICAL EXAMINATION: Blood pressure is 120/57, pulse 85, temperature 97.6. He is 94% on 4 L nasal cannula. General description is an elderly male lying in bed in no distress. RESPIRATORY SYSTEM: Unlabored breathing, decreased intensity of breath sounds. No wheeze. HEART: S1, S2. Regular rate and rhythm. ABDOMEN: Soft, no tenderness. LABS: No new labs have been obtained today. DIAGNOSTIC IMPRESSION AND PLAN: Patient with acute COVID-19 infection in this patient have some minimal clinical response. No worsening of hypoxemia has been noticed, has been encouraged to increase use of incentive spirometry more often. Patient to continue with dexamethasone, Eliquis, zinc, ascorbic acid. Slowly wean of his oxygen and continue supportive care. MMODL / IJN: [id number] /
--- NOTE | 2021-04-16 12:51 | P.PN ---
Subjective This is a pleasant 80 years old male with multiple medical problems including diabetes mellitus, hypertension, hyperlipidemia, coronary artery disease status post stent placement and a I CAD, history of prostate cancer status post radiotherapy.. He was admitted with A. fib and RVR with elevated troponin who is evaluated by clinical operations leader and thought it is due to his A. fib and covid infection. Patient also with ischemic cardiomyopathy on AICD. Patient is alert and awake. He has some tachypnea today and dry coughing, chest x-ray showing bilateral infiltrates consistent with cough and pneumonia however he is saturating 92-94% on room air. He is already on vitamin C and D and zinc. Neurology following the patient for his generalized weakness and fall. He is currently on Eliquis 2.5 mg which his home medication, also he is on metoprolol 200 mg and Lasix 20 mg orally. Today repeat chest x-ray showed chronic changes with bilateral infiltrates similar to admission. Lavern DM is admitted for his coughing. We'll keep monitoring with cardiology, infectious disease and nephrology of the case Also patient with postural hypotension with a drop of blood pressure 118/53 on supine down to 81/48 on sitting. Labs from today are unremarkable. 04/10/2021 This is a pleasant 80 years old male who was admitted initially with A. fib and RVR with elevated troponin secondary to his cardiac disease and clinical operations leader recommended medical management. Also infectious disease team following the patient for his Covid pneumonia however he has normal respiratory distress, no significant hypoxia. Chest x-ray looks stable and infectious disease team recommended continue with the same vitamins. Patient still feels generally weak and he will benefit from ECF for rehab upon discharge per PT/OT. Neurology signed off, clinical operations leader recommended no further workup. Patient however had urinary retention today with bladder scan showing 400 mL, no Jean catheter was placed and urology team were consulted for that reason. Patient remains with some postural hypotension. However he is on Eliquis, Lasix 20 mg daily and metoprolol. 04/12/2021 Patient not in significant respiratory distress and looks calm and awake and comfortable to certain degree even he thinks he is improving however is oxygenating still on the low side and he needs 2 L of oxygen to keep saturation around 94%, related to his active Covid infection, he remains on dexamethasone and Eliquis, besides the multivitamins protocol for Covid. Also patient blood pressure is dropping to 86/40 9 at night, therefore hold Aldactone for now, continue on metoprolol in view of his A. fib and RVR on admission, also he is on oral Lasix. Jean catheter still in place and showing clear urine Check labs in the morning 04/13/2021 Patient is awake and alert, with no significant respiratory distress while at rest however he still needs 2 L of oxygen to keep his saturation of oxygen at low 90s. Jean catheter is in place and draining yellow urine. No new complaints. Patient still been treated for Covid infection and pneumonia with dexamethasone, on Rik Eliquis, multiple vitamins of vitamin C, D and zinc. Last night his blood pressure was on the low side 86/49 and still have positive orthostatic vitals so I held his Aldactone, patient remains on metoprolol as he has history of A. fib and RVR on admission. Continue with dexamethasone and Eliquis. Monitor blood pressure 04/14/2021 Patient is a still little short of breath and weak, he is tachypneic. He needs 2-4 L of oxygen to keep his saturation in the low 90s, at room air he dropped to 80s percent. He denies chest pain. No significant component. He is hemodynamically stable but he has postural drop in blood pressure bear urement from sitting to standing. Patient denies symptoms of postural dizziness or difficulty. Vitals are stable, no labs today Patient remains on dexamethasone, home dose of Eliquis, multiple vitamins 04/15/2021 Patient not in distress, is still needs 4 L of oxygen to keep saturation around 92% which is slight worsening compared to couple days ago Weakness improving. Still has Jean catheter with yellow urine. Labs look stable including d-dimer around the same 1.2, elevated more than 500 while he is on steroids area currently he's only on 10 units of NovoLog with meals. We will add 18 units of Levemir. Monitor glucose and continue with insulin sliding scale. Chest x-ray showing the same chronic bilateral infiltrates consistent with COVID-19. Plancalcitonin is normal Patient currently is on Eliquis, multiple vitamins, dexamethasone Aldactone was held for patient is with postural hypotension although it's a symptomatic for most part of it 04/16/2021 Patient weakness is improving, he has minimal respiratory symptoms while staining embedded however his oxygen requirement increased over the last 2-3 days up to 4 L/m of oxygen via nasal cannula. His blood pressure and labs are stable, no labs from today. Glucose is better controlled around 200 after adding Levemir 18-20 units at bedtime, insulin requirements needed after he was started on dexamethasone for his Covid bilateral pneumonia He is currently covered with dexamethasone, multiple vitamins, he is on Eliquis renal dose since home. Patient is not ready for discharge for his gradually worsening hypoxia. Tomorrow we'll repeat chest x-ray and labs Objective - Vital Signs Vital signs: Vital Signs Temp 97.8 F 04/16/21 08:00 Pulse 66 04/16/21 08:00 Resp 17 04/16/21 08:00 BP 109/59 04/16/21 08:00 Pulse Ox 97 04/16/21 08:00 Intake & Output 04/15/21 04/16/21 04/16/21 18:59 06:59 18:59 Intake Total 472 236 Output Total 1475 1650 Balance -1003 -1650 236 Weight 108.5 kg Intake: Oral 472 236 Output: Urine 1475 1650 Other: Voiding Method Indwelling Catheter Indwelling Catheter Indwelling Catheter # Bowel Movements 1 - Exam -GENERAL: The patient is alert and oriented x3, not in any acute distress. Generally weak HEENT: Pupils are round and equally reacting to light. EOMI. No scleral icterus. No conjunctival pallor. Normocephalic, atraumatic. No pharyngeal erythema. No thyromegaly. CARDIOVASCULAR: S1 and S2 present. No murmurs, rubs, or gallops. -PULMONARY: Chest is clear to auscultation, no wheezing or crackles. Tachypnea ABDOMEN: Soft, nontender, nondistended, normoactive bowel sounds. No palpable organomegaly. MUSCULOSKELETAL: No joint swelling or deformity. EXTREMITIES: No cyanosis, clubbing, or pedal edema. NEUROLOGICAL: Gross neurological examination did not reveal any focal deficits. SKIN: No rashes. no petechiae. - Labs CBC & Chem 7: 04/13/21 07:15 04/15/21 07:26 Labs: Abnormal Lab Results - Last 24 Hours (Table) 04/15/21 04/15/21 04/15/21 Range/Units 17:18 20:06 20:08 POC Glucose (mg/dL) 364 H 507 H 511 H (75-99) mg/dL 04/16/21 04/16/21 04/16/21 Range/Units 00:12 06:15 11:51 POC Glucose (mg/dL) 261 H 246 H 200 H (75-99) mg/dL Assessment and Plan Assessment: Acute urinary retention Covid infection with hypoxia A. fib with RVR with elevated troponin Generalized weakness and fall, being followed by neurology who signs off. Postural hypotension also may be contributing Postural hypotension Ischemic cardiomyopathy status post AICD History of coronary artery disease status post stenting Diabetes mellitus Hypertension Hyperlipidemia Plan: A pleasant 80 years old male who presents with A. fib and generalized weakness and ischemic cardiomyopathy. Continue with the Eliquis, continue with home dose of metoprolol, and Lasix per clinical operations leader's recommendation will follow on the case closely. Hold Aldactone. Continue dexamethasone on monitor oxygen level. Continue with ID team and neurology team recommendation Continue with Jean and Flomax for urinary retention Labs and medication were reviewed.. Continue same treatment. Continue with symptomatic treatment. Resume home medication. Monitor lytes and vitals. DVT and GI prophylaxis. Further recommendations as per clinical course of the patient DVT prophylaxis: Subcutaneous heparin GI Prophylaxis: Ppi PT/OT: Pending Prognosis is guarded
--- NOTE | 2021-04-16 14:28 | CDI ---
Documentation Clarification Form Date: 04/16/2021 02:09:02 PM From: Paula Davis RN CCDS Admit Date: 04/07/2021 04:12:00 PM Patient Name: Christiano Kaye Visit Number: [id number] Discharge Date: ATTENTION: The Clinical Documentation Specialists (CDI) and [facility] Coding Staff appreciate your assistance in clarifying documentation. Please respond to the clarification below the line at the bottom and electronically sign. The CDI & [facility] Coding staff will review the response and follow-up if needed. Please note: Queries are made part of the Legal Health Record. If you have any questions, please contact the author of this message via ITS. Dr. Saba E Sheet Your patient has hypoxia documented in medicine progress note 04/12 through 04/16. Based on this information and the findings below, is there an additional diagnosis that is clinically appropriate for this patient? History/Risk Factors: 80-year-old male presents to the ED for not feeling well he had fallen when he got caught in the cord. Admitted with Acute COVID 19 infection and fracture of 8th rib. Medical History: DM 2; GERD; HTN; HLD and NE. Tobacco use: positive for tobacco use. Clinical Indicators: Pulse oximetry 04/12 0800 SpO2 88% room air. Vital signs: 04/12 20:00 B/P 103/51; HR 95; RR 18; SpO2 92% 2L nasal cannula Vital signs: 04/14 00:00 B/P 116/56; HR 71; RR 18; SpO2 97% 4L nasal cannula Lung/Breathing assessment: 04/14 Medicine progress note: chest is clear to auscultation, no wheezing or crackles. Treatment: Oxygen 2L - 4L nasal cannula Is there an additional diagnosis that is clinically appropriate for this patient? [ ] Acute Hypoxic Respiratory Failure (pO2 <60 mm Hg or SpO2 <91% on room air) [ ] Acute Hypercapnic Respiratory Failure (pCO2 >50 and pH <7.35) [ ] Other Diagnosis, please specify [ ] Unable to determine (Template Last Revised: January 2021) Acute Hypoxic Respiratory Failure MTDD
[2021-04-16 17:13] LABS: Glucose,Whole Blood 415 mg/dL (75-99)
[2021-04-16] MEDS: TAMSULOSIN 0.4 MG CAP.ER.24H PO SCH (18:43)
[2021-04-16 20:41] LABS: Glucose,Whole Blood 381 mg/dL (75-99)
[2021-04-16] MEDS: INSULIN DETEMIR (LEVEMIR) 100 UNIT/ML SYR SQ SCH (20:44)
[2021-04-17 07:25] LABS: Glucose,Whole Blood 114 mg/dL (75-99)
[2021-04-17] MEDS ORDERED: INSULIN ASPART (NovoLOG) 100 UNIT/ML VIAL SQ SCH (07:30)
--- NOTE | 2021-04-17 08:38 | XR ---
EXAMINATION TYPE: XR chest 1V DATE OF EXAM: 04/17/2021 COMPARISON: 04/15/2021 HISTORY: 80 year-old male shortness of breath TECHNIQUE: Single frontal view of the chest is obtained. FINDINGS: Left anterior chest wall AICD generator with right atrial, right ventricular, and coronary sinus lead s. An endovascular aortic valve replacement is present. Heart normal size. Peripheral bilateral opaci ties persist. No pleural effusion. IMPRESSION: Persistent bilateral peripheral opacities. Findings may be seen with COVID pneumonia, NSIP, and eosin ophilic pneumonia.
[2021-04-17 08:41] LABS: C Reactive Protein 4.9 mg/dL (<1.0)
[2021-04-17] MEDS: DEXAMETHASONE SOD PHOSPHATE 10 MG/ML 1 ML VIAL IV SCH (09:35)
[2021-04-17] MEDS: APIXABAN 2.5 MG TABLET PO SCH ×2 (09:35→21:59)
[2021-04-17] MEDS: ZINC SULFATE 220 MG CAP PO SCH (09:35)
[2021-04-17] MEDS: FOLIC ACID 1 MG TAB PO SCH (09:35)
[2021-04-17] MEDS: INSULIN ASPART (NovoLOG) 100 UNIT/ML VIAL SQ SCH ×6 (09:35→21:48)
[2021-04-17] MEDS: ATORVASTATIN 80 MG TAB PO SCH (09:35)
[2021-04-17] MEDS: ASCORBIC ACID 500 MG TAB PO SCH (09:36)
[2021-04-17] MEDS: METOPROLOL SUCCINATE (ER) 100 MG TAB.ER.24H PO SCH (09:36)
[2021-04-17] MEDS: PANTOPRAZOLE 40 MG TABLET PO SCH (09:36)
[2021-04-17] MEDS: FUROSEMIDE 20 MG TAB PO SCH (09:36)
[2021-04-17] MEDS: CHOLECALCIFEROL 25 MCG (1000 IU) TABLET PO SCH (09:36)
--- NOTE | 2021-04-17 11:45 | P.PN ---
Subjective This is a pleasant 80 years old male with multiple medical problems including diabetes mellitus, hypertension, hyperlipidemia, coronary artery disease status post stent placement and a I CAD, history of prostate cancer status post radiotherapy.. He was admitted with A. fib and RVR with elevated troponin who is evaluated by feather drying machine operator and thought it is due to his A. fib and covid infection. Patient also with ischemic cardiomyopathy on AICD. Patient is alert and awake. He has some tachypnea today and dry coughing, chest x-ray showing bilateral infiltrates consistent with cough and pneumonia however he is saturating 92-94% on room air. He is already on vitamin C and D and zinc. Neurology following the patient for his generalized weakness and fall. He is currently on Eliquis 2.5 mg which his home medication, also he is on metoprolol 200 mg and Lasix 20 mg orally. Today repeat chest x-ray showed chronic changes with bilateral infiltrates similar to admission. Lavern DM is admitted for his coughing. We'll keep monitoring with cardiology, infectious disease and nephrology of the case Also patient with postural hypotension with a drop of blood pressure 118/53 on supine down to 81/48 on sitting. Labs from today are unremarkable. 04/10/2021 This is a pleasant 80 years old male who was admitted initially with A. fib and RVR with elevated troponin secondary to his cardiac disease and feather drying machine operator recommended medical management. Also infectious disease team following the patient for his Covid pneumonia however he has normal respiratory distress, no significant hypoxia. Chest x-ray looks stable and infectious disease team recommended continue with the same vitamins. Patient still feels generally weak and he will benefit from ECF for rehab upon discharge per PT/OT. Neurology signed off, feather drying machine operator recommended no further workup. Patient however had urinary retention today with bladder scan showing 400 mL, no Jean catheter was placed and urology team were consulted for that reason. Patient remains with some postural hypotension. However he is on Eliquis, Lasix 20 mg daily and metoprolol. 04/12/2021 Patient not in significant respiratory distress and looks calm and awake and comfortable to certain degree even he thinks he is improving however is oxygenating still on the low side and he needs 2 L of oxygen to keep saturation around 94%, related to his active Covid infection, he remains on dexamethasone and Eliquis, besides the multivitamins protocol for Covid. Also patient blood pressure is dropping to 86/40 9 at night, therefore hold Aldactone for now, continue on metoprolol in view of his A. fib and RVR on admission, also he is on oral Lasix. Jean catheter still in place and showing clear urine Check labs in the morning 04/13/2021 Patient is awake and alert, with no significant respiratory distress while at rest however he still needs 2 L of oxygen to keep his saturation of oxygen at low 90s. Jean catheter is in place and draining yellow urine. No new complaints. Patient still been treated for Covid infection and pneumonia with dexamethasone, on Rik Eliquis, multiple vitamins of vitamin C, D and zinc. Last night his blood pressure was on the low side 86/49 and still have positive orthostatic vitals so I held his Aldactone, patient remains on metoprolol as he has history of A. fib and RVR on admission. Continue with dexamethasone and Eliquis. Monitor blood pressure 04/14/2021 Patient is a still little short of breath and weak, he is tachypneic. He needs 2-4 L of oxygen to keep his saturation in the low 90s, at room air he dropped to 80s percent. He denies chest pain. No significant component. He is hemodynamically stable but he has postural drop in blood pressure bear urement from sitting to standing. Patient denies symptoms of postural dizziness or difficulty. Vitals are stable, no labs today Patient remains on dexamethasone, home dose of Eliquis, multiple vitamins 04/15/2021 Patient not in distress, is still needs 4 L of oxygen to keep saturation around 92% which is slight worsening compared to couple days ago Weakness improving. Still has Jean catheter with yellow urine. Labs look stable including d-dimer around the same 1.2, elevated more than 500 while he is on steroids area currently he's only on 10 units of NovoLog with meals. We will add 18 units of Levemir. Monitor glucose and continue with insulin sliding scale. Chest x-ray showing the same chronic bilateral infiltrates consistent with COVID-19. Plancalcitonin is normal Patient currently is on Eliquis, multiple vitamins, dexamethasone Aldactone was held for patient is with postural hypotension although it's a symptomatic for most part of it 04/16/2021 Patient weakness is improving, he has minimal respiratory symptoms while staining embedded however his oxygen requirement increased over the last 2-3 days up to 4 L/m of oxygen via nasal cannula. His blood pressure and labs are stable, no labs from today. Glucose is better controlled around 200 after adding Levemir 18-20 units at bedtime, insulin requirements needed after he was started on dexamethasone for his Covid bilateral pneumonia He is currently covered with dexamethasone, multiple vitamins, he is on Eliquis renal dose since home. Patient is not ready for discharge for his gradually worsening hypoxia. Tomorrow we'll repeat chest x-ray and labs 04/17/2021 Patient this morning was somewhat more tachypneic but no significant respiratory distress while he was lying in bed, his oxygen saturation was 90s on 4 L oxygen. His chest x-ray showing persistent infiltrates on both sides which is kind of seeing in Covid 19 pneumonia versus other by radiologist. He remains treated for chronic pneumonia including dexamethasone, multiple vitamins. Also patient is on home dose of Eliquis. His glucose is better controlled after increasing Levemir 20 units and NovoLog 12 units with meals. Inflammatory markers slightly down with see protein 4.9 and LDH 786, d-dimer slightly up to 1.5 with no significant change. Hemodynamically stable. Patient still on 4 L of oxygen. Still has a Jean catheter Objective - Vital Signs Vital signs: Vital Signs Temp 97.5 F L 04/17/21 04:00 Pulse 70 04/17/21 04:00 Resp 18 04/17/21 04:00 BP 122/63 04/17/21 04:00 Pulse Ox 92 L 04/17/21 04:00 Intake & Output 04/16/21 04/17/21 04/17/21 18:59 06:59 18:59 Intake Total 636 540 120 Output Total 675 600 Balance 636 135 -480 Weight 95 kg Intake: Oral 636 540 120 Output: Urine 675 600 Other: Voiding Method Indwelling Catheter Indwelling Catheter # Bowel Movements 1 - Exam -GENERAL: The patient is alert and oriented x3, not in any acute distress. Gen erally weak HEENT: Pupils are round and equally reacting to light. EOMI. No scleral icterus. No conjunctival pallor. Normocephalic, atraumatic. No pharyngeal erythema. No thyromegaly. CARDIOVASCULAR: S1 and S2 present. No murmurs, rubs, or gallops. -PULMONARY: Chest is clear to auscultation, no wheezing or crackles. Tachypnea ABDOMEN: Soft, nontender, nondistended, normoactive bowel sounds. No palpable organomegaly. MUSCULOSKELETAL: No joint swelling or deformity. EXTREMITIES: No cyanosis, clubbing, or pedal edema. NEUROLOGICAL: Gross neurological examination did not reveal any focal deficits. SKIN: No rashes. no petechiae. - Labs CBC & Chem 7: 04/13/21 07:15 04/15/21 07:26 Labs: Abnormal Lab Results - Last 24 Hours (Table) 04/16/21 04/16/21 04/16/21 Range/Units 11:51 16:59 20:39 D-Dimer (<0.60) mg/L FEU POC Glucose (mg/dL) 200 H 415 H 381 H (75-99) mg/dL Lactate Dehydrogenase (313-618) U/L C-Reactive Protein (<1.0) mg/dL 04/17/21 04/17/21 04/17/21 Range/Units 06:27 06:27 07:23 D-Dimer 1.53 H (<0.60) mg/L FEU POC Glucose (mg/dL) 114 H (75-99) mg/dL Lactate Dehydrogenase 786 H (313-618) U/L C-Reactive Protein 4.9 H (<1.0) mg/dL Assessment and Plan Assessment: Acute urinary retention Covid infection with hypoxia A. fib with RVR with elevated troponin Generalized weakness and fall, being followed by neurology who signs off. Postural hypotension also may be contributing Postural hypotension Ischemic cardiomyopathy status post AICD History of coronary artery disease status post stenting Diabetes mellitus Hypertension Hyperlipidemia Plan: A pleasant 80 years old male who presents with A. fib and generalized weakness and ischemic cardiomyopathy. Continue with the Eliquis, continue with home dose of metoprolol, and Lasix per feather drying machine operator's recommendation will follow on the case closely. Hold Aldactone. Continue dexamethasone on monitor oxygen level. Continue with ID team and neurology team recommendation Continue with Jean and Flomax for urinary retention Labs and medication were reviewed.. Continue same treatment. Continue with symptomatic treatment. Resume home medication. Monitor lytes and vitals. DVT and GI prophylaxis. Further recommendations as per clinical course of the patient DVT prophylaxis: Subcutaneous heparin GI Prophylaxis: Ppi PT/OT: Pending Prognosis is guarded
[2021-04-17 11:59] LABS: Glucose,Whole Blood 240 mg/dL (75-99)
[2021-04-17] MEDS ORDERED: BENZONATATE 100 MG CAP PO PRN (15:02)
--- NOTE | 2021-04-17 16:19 | PN ---
PROGRESS NOTE DATE OF SERVICE: 04/17/2021 REASON FOR FOLLOWUP: COVID-19 pneumonia. INTERVAL HISTORY: The patient is currently afebrile. The patient is breathing slightly comfortably. He seems to be having more cough, complaining of coughing up some clear sputum, no purulence. The patient denies having any chest pain. No abdominal pain or diarrhea. PHYSICAL EXAMINATION: Blood pressure is 109/55, pulse of 100, temperature 98. He is 100% on 4 L nasal cannula. General description is an elderly male lying in bed in no distress. RESPIRATORY SYSTEM: Unlabored breathing, decreased intensity of breath sounds. No wheeze. HEART: S1, S2. Regular rate and rhythm. ABDOMEN: Soft, no tenderness. LABS: D-dimer is 1.53, slightly elevated CRP and LDH was done though. DIAGNOSTIC IMPRESSION AND PLAN: Patient with COVID-19 pneumonia. Patient may have a slight clinical improvement as the patient is requiring saturating currently 100% on 4 L, which can be weaned down. We will add Tessalon Perles for the persistent cough. Continue with Eliquis, zinc, dexamethasone and ascorbic acid and monitor his clinical course closely. MMODL / IJN: [id number] /
[2021-04-17 17:03] LABS: Glucose,Whole Blood 295 mg/dL (75-99)
[2021-04-17] MEDS: FERROUS SULFATE 325 MG TAB PO SCH (17:42)
[2021-04-17] MEDS: TAMSULOSIN 0.4 MG CAP.ER.24H PO SCH (17:42)
[2021-04-17 20:56] LABS: Glucose,Whole Blood 414 mg/dL (75-99)
[2021-04-17] MEDS: INSULIN DETEMIR (LEVEMIR) 100 UNIT/ML SYR SQ SCH (21:48)
[2021-04-17] MEDS: INSULIN REGULAR 100 UNIT in SODIUM CHLORIDE 0.9% 100 ML IV SCH (22:01)
[2021-04-17 22:16] LABS: Glucose,Whole Blood 399 mg/dL (75-99)
[2021-04-17 23:11] LABS: Glucose,Whole Blood 329 mg/dL (75-99)
[2021-04-18 00:10] LABS: Glucose,Whole Blood 206 mg/dL (75-99)
[2021-04-18 01:17] LABS: Glucose,Whole Blood 137 mg/dL (75-99)
[2021-04-18 02:20] LABS: Glucose,Whole Blood 127 mg/dL (75-99)
[2021-04-18 03:17] LABS: Glucose,Whole Blood 127 mg/dL (75-99)
[2021-04-18 04:05] LABS: Glucose,Whole Blood 146 mg/dL (75-99)
[2021-04-18 06:17] LABS: Glucose,Whole Blood 137 mg/dL (75-99)
[2021-04-18 08:21] LABS: Glucose,Whole Blood 172 mg/dL (75-99)
[2021-04-18] MEDS: ASCORBIC ACID 500 MG TAB PO SCH (09:35)
[2021-04-18] MEDS: FOLIC ACID 1 MG TAB PO SCH (09:35)
[2021-04-18] MEDS: ZINC SULFATE 220 MG CAP PO SCH (09:35)
[2021-04-18] MEDS: FUROSEMIDE 20 MG TAB PO SCH (09:35)
[2021-04-18] MEDS: PANTOPRAZOLE 40 MG TABLET PO SCH (09:35)
[2021-04-18] MEDS: METOPROLOL SUCCINATE (ER) 100 MG TAB.ER.24H PO SCH (09:36)
[2021-04-18] MEDS: ATORVASTATIN 80 MG TAB PO SCH (09:36)
[2021-04-18] MEDS: CHOLECALCIFEROL 25 MCG (1000 IU) TABLET PO SCH (09:36)
[2021-04-18] MEDS: DEXAMETHASONE SOD PHOSPHATE 10 MG/ML 1 ML VIAL IV SCH (09:36)
[2021-04-18] MEDS: APIXABAN 2.5 MG TABLET PO SCH ×2 (09:36→21:21)
[2021-04-18 11:38] LABS: Glucose,Whole Blood 174 mg/dL (75-99)
[2021-04-18 12:58] LABS: Glucose,Whole Blood 148 mg/dL (75-99)
[2021-04-18 13:30] VITALS: BMI 24.8
--- NOTE | 2021-04-18 14:36 | P.PN ---
Subjective This is a pleasant 80 years old male with multiple medical problems including diabetes mellitus, hypertension, hyperlipidemia, coronary artery disease status post stent placement and a I CAD, history of prostate cancer status post radiotherapy.. He was admitted with A. fib and RVR with elevated troponin who is evaluated by clinical rn and thought it is due to his A. fib and covid infection. Patient also with ischemic cardiomyopathy on AICD. Patient is alert and awake. He has some tachypnea today and dry coughing, chest x-ray showing bilateral infiltrates consistent with cough and pneumonia however he is saturating 92-94% on room air. He is already on vitamin C and D and zinc. Neurology following the patient for his generalized weakness and fall. He is currently on Eliquis 2.5 mg which his home medication, also he is on metoprolol 200 mg and Lasix 20 mg orally. Today repeat chest x-ray showed chronic changes with bilateral infiltrates similar to admission. Lavern DM is admitted for his coughing. We'll keep monitoring with cardiology, infectious disease and nephrology of the case Also patient with postural hypotension with a drop of blood pressure 118/53 on supine down to 81/48 on sitting. Labs from today are unremarkable. 04/10/2021 This is a pleasant 80 years old male who was admitted initially with A. fib and RVR with elevated troponin secondary to his cardiac disease and clinical rn recommended medical management. Also infectious disease team following the patient for his Covid pneumonia however he has normal respiratory distress, no significant hypoxia. Chest x-ray looks stable and infectious disease team recommended continue with the same vitamins. Patient still feels generally weak and he will benefit from ECF for rehab upon discharge per PT/OT. Neurology signed off, clinical rn recommended no further workup. Patient however had urinary retention today with bladder scan showing 400 mL, no Jean catheter was placed and urology team were consulted for that reason. Patient remains with some postural hypotension. However he is on Eliquis, Lasix 20 mg daily and metoprolol. 04/12/2021 Patient not in significant respiratory distress and looks calm and awake and comfortable to certain degree even he thinks he is improving however is oxygenating still on the low side and he needs 2 L of oxygen to keep saturation around 94%, related to his active Covid infection, he remains on dexamethasone and Eliquis, besides the multivitamins protocol for Covid. Also patient blood pressure is dropping to 86/40 9 at night, therefore hold Aldactone for now, continue on metoprolol in view of his A. fib and RVR on admission, also he is on oral Lasix. Jean catheter still in place and showing clear urine Check labs in the morning 04/13/2021 Patient is awake and alert, with no significant respiratory distress while at rest however he still needs 2 L of oxygen to keep his saturation of oxygen at low 90s. Jean catheter is in place and draining yellow urine. No new complaints. Patient still been treated for Covid infection and pneumonia with dexamethasone, on Rik Eliquis, multiple vitamins of vitamin C, D and zinc. Last night his blood pressure was on the low side 86/49 and still have positive orthostatic vitals so I held his Aldactone, patient remains on metoprolol as he has history of A. fib and RVR on admission. Continue with dexamethasone and Eliquis. Monitor blood pressure 04/14/2021 Patient is a still little short of breath and weak, he is tachypneic. He needs 2-4 L of oxygen to keep his saturation in the low 90s, at room air he dropped to 80s percent. He denies chest pain. No significant component. He is hemodynamically stable but he has postural drop in blood pressure bear urement from sitting to standing. Patient denies symptoms of postural dizziness or difficulty. Vitals are stable, no labs today Patient remains on dexamethasone, home dose of Eliquis, multiple vitamins 04/15/2021 Patient not in distress, is still needs 4 L of oxygen to keep saturation around 92% which is slight worsening compared to couple days ago Weakness improving. Still has Jean catheter with yellow urine. Labs look stable including d-dimer around the same 1.2, elevated more than 500 while he is on steroids area currently he's only on 10 units of NovoLog with meals. We will add 18 units of Levemir. Monitor glucose and continue with insulin sliding scale. Chest x-ray showing the same chronic bilateral infiltrates consistent with COVID-19. Plancalcitonin is normal Patient currently is on Eliquis, multiple vitamins, dexamethasone Aldactone was held for patient is with postural hypotension although it's a symptomatic for most part of it 04/16/2021 Patient weakness is improving, he has minimal respiratory symptoms while staining embedded however his oxygen requirement increased over the last 2-3 days up to 4 L/m of oxygen via nasal cannula. His blood pressure and labs are stable, no labs from today. Glucose is better controlled around 200 after adding Levemir 18-20 units at bedtime, insulin requirements needed after he was started on dexamethasone for his Covid bilateral pneumonia He is currently covered with dexamethasone, multiple vitamins, he is on Eliquis renal dose since home. Patient is not ready for discharge for his gradually worsening hypoxia. Tomorrow we'll repeat chest x-ray and labs 04/17/2021 Patient this morning was somewhat more tachypneic but no significant respiratory distress while he was lying in bed, his oxygen saturation was 90s on 4 L oxygen. His chest x-ray showing persistent infiltrates on both sides which is kind of seeing in Covid 19 pneumonia versus other by radiologist. He remains treated for chronic pneumonia including dexamethasone, multiple vitamins. Also patient is on home dose of Eliquis. His glucose is better controlled after increasing Levemir 20 units and NovoLog 12 units with meals. Inflammatory markers slightly down with see protein 4.9 and LDH 786, d-dimer slightly up to 1.5 with no significant change. Hemodynamically stable. Patient still on 4 L of oxygen. Still has a Jean catheter 04/18/2021 Patient remains in need for 4 L of fluoxetine keep saturation 91% at least, patient could not be weaned down more than that. Other than that clinically looks the same. Yesterday with no much worsening or improvement. Chest high sugar is controlled with insulin drip at 2.5 units per hour. This also continued on Eliquis 2.5 home dose, dexamethasone IV 6 mg daily, multiple vitamins for his Covid pneumonia infection Objective - Vital Signs Vital signs: Vital Signs Temp 97.9 F 04/18/21 08:00 Pulse 83 04/18/21 08:00 Resp 16 04/18/21 03:51 BP 116/57 04/18/21 08:00 Pulse Ox 91 L 04/18/21 08:00 Intake & Output 04/17/21 04/18/21 04/18/21 18:59 06:59 18:59 Intake Total 1560 279.467 549.516 Output Total 1950 1350 700 Balance -390 -1070.533 -150.484 Weight 85.5 kg 85.5 kg Intake: Intake, IV Titration 39.467 9.516 Amount Insulin Regular 100 unit 39.467 9.516 In Sodium Chloride 0.9% 100 ml @ Titrate IV .Q0M [facility] Rx#:[id number] Oral 1560 240 540 Output: Urine 1950 1350 700 Other: Voiding Method Indwelling Catheter Indwelling Catheter Indwelling Catheter - Exam -GENERAL: The patient is alert and oriented x3, not in any acute distress. Generally weak HEENT: Pupils are round and equally reacting to light. EOMI. No scleral icterus. No conjunctival pallor. Normocephalic, atraumatic. No pharyngeal erythema. No thyromegaly. CARDIOVASCULAR: S1 and S2 present. No murmurs, rubs, or gallops. -PULMONARY: Chest is clear to auscultation, no wheezing or crackles. Tachypnea ABDOMEN: Soft, nontender, nondistended, normoactive bowel sounds. No palpable organomegaly. MUSCULOSKELETAL: No joint swelling or deformity. EXTREMITIES: No cyanosis, clubbing, or pedal edema. NEUROLOGICAL: Gross neurological examination did not reveal any focal deficits. SKIN: No rashes. no petechiae. - Labs CBC & Chem 7: 04/13/21 07:15 04/15/21 07:26 Labs: Abnormal Lab Results - Last 24 Hours (Table) 04/17/21 04/17/21 04/17/21 Range/Units 17:02 20:44 22:03 POC Glucose (mg/dL) 295 H 414 H 399 H (75-99) mg/dL 04/17/21 04/17/21 04/18/21 Range/Units 22:59 23:58 01:05 POC Glucose (mg/dL) 329 H 206 H 137 H (75-99) mg/dL 04/18/21 04/18/21 04/18/21 Range/Units 02:00 03:05 04:02 POC Glucose (mg/dL) 127 H 127 H 146 H (75-99) mg/dL 04/18/21 04/18/21 04/18/21 Range/Units 05:56 08:18 11:29 POC Glucose (mg/dL) 137 H 172 H 174 H (75-99) mg/dL 04/18/21 Range/Units 12:54 POC Glucose (mg/dL) 148 H (75-99) mg/dL Assessment and Plan Assessment: Acute urinary retention Covid infection with hypoxia A. fib with RVR with elevated troponin Generalized weakness and fall, being followed by neurology who signs off. Postural hypotension also may be contributing Postural hypotension Ischemic cardiomyopathy status post AICD History of coronary artery disease status post stenting Diabetes mellitus Hypertension Hyperlipidemia Plan: A pleasant 80 years old male who presents with A. fib and generalized weakness and ischemic cardiomyopathy. Continue with the Eliquis, continue with home dose of metoprolol, and Lasix per clinical rn's recommendation will follow on the case closely. Hold Aldactone. Continue dexamethasone on monitor oxygen level. Continue with ID team and neurology team recommendation Continue with Jean and Flomax for urinary retention Labs and medication were reviewed.. Continue same treatment. Continue with symptomatic treatment. Resume home medication. Monitor lytes and vitals. DVT and GI prophylaxis. Further recommendations as per clinical course of the pat ient DVT prophylaxis: Subcutaneous heparin GI Prophylaxis: Ppi PT/OT: Pending Prognosis is guarded
[2021-04-18 16:04] LABS: Glucose,Whole Blood 337 mg/dL (75-99)
[2021-04-18 18:00] LABS: Glucose,Whole Blood 244 mg/dL (75-99)
[2021-04-18] MEDS: TAMSULOSIN 0.4 MG CAP.ER.24H PO SCH (18:12)
[2021-04-18 20:17] LABS: Glucose,Whole Blood 230 mg/dL (75-99)
[2021-04-18] MEDS: INSULIN REGULAR 100 UNIT in SODIUM CHLORIDE 0.9% 100 ML IV SCH (21:41)
[2021-04-18 21:53] LABS: Glucose,Whole Blood 169 mg/dL (75-99)
[2021-04-18] MEDS ORDERED: LEVOFLOXACIN 750 MG TAB PO STA (22:17)
[2021-04-19] MEDS: methylPREDNISolone SOD SUCCI 125 MG/2 ML VIAL IV SCH ×5 (00:02→23:00)
[2021-04-19 01:25] LABS: Glucose,Whole Blood 191 mg/dL (75-99)
[2021-04-19 02:00] LABS: Glucose,Whole Blood 176 mg/dL (75-99)
--- NOTE | 2021-04-19 03:41 | PN ---
PROGRESS NOTE DATE OF SERVICE: 04/18/2021 REASON FOR FOLLOWUP: COVID-19 pneumonia. INTERVAL HISTORY: Patient is afebrile. The patient is breathing comfortably. Still requiring 3 to 4 L nasal cannula oxygen. The patient denies having any chest pain. He did have a cough with occasional sputum production. No vomiting. No abdominal pain or diarrhea. PHYSICAL EXAMINATION: Blood pressure 108/68 with a pulse of 55, temperature 98.5. He is 93% on 3 L nasal cannula. General description is an elderly male lying in bed in no distress. Respiratory system: Unlabored breathing, decreased intensity of breath sounds. No wheeze. Heart S1, S2. Regular rate and rhythm. Abdomen soft. LABS: No new labs have been obtained today. DIAGNOSTIC IMPRESSION AND PLAN: Patient with acute COVID-19 pneumonia in this patient who seemed to have slight improvement. Though still requiring supplemental oxygen and did have significant cough with sputum production. We will switch over his steroids to Solu-Medrol and Levaquin and monitor his clinical course closely. Prognosis remains to be guarded. MMODL / IJN: [id number] /
[2021-04-19 04:15] LABS: Glucose,Whole Blood 166 mg/dL (75-99)
[2021-04-19 05:59] LABS: Glucose,Whole Blood 182 mg/dL (75-99)
--- NOTE | 2021-04-19 07:54 | XR ---
EXAMINATION TYPE: XR chest 1V portable DATE OF EXAM: 04/19/2021 HISTORY: Shortness of breath. COMPARISON: 04/17/2021 TECHNIQUE: Single view of the chest is submitted. FINDINGS: Demonstrated are scattered senescent parenchymal change. Peripheral infiltrates persist without significant interval change. The heart is stable. Hilar and mediastinal structures are within normal limits. Degenerative changes are seen of the dorsal spine. IMPRESSION: 1. Peripheral infiltrates persist without significant interval change.
[2021-04-19 08:09] LABS: Glucose,Whole Blood 195 mg/dL (75-99)
[2021-04-19 08:53] LABS: C Reactive Protein 4.4 mg/dL (<1.0)
[2021-04-19] MEDS: METOPROLOL SUCCINATE (ER) 100 MG TAB.ER.24H PO SCH (09:26)
[2021-04-19] MEDS: FUROSEMIDE 20 MG TAB PO SCH (09:26)
[2021-04-19] MEDS: ZINC SULFATE 220 MG CAP PO SCH (09:26)
[2021-04-19] MEDS: CHOLECALCIFEROL 25 MCG (1000 IU) TABLET PO SCH (09:26)
[2021-04-19] MEDS: ATORVASTATIN 80 MG TAB PO SCH (09:26)
[2021-04-19] MEDS: PANTOPRAZOLE 40 MG TABLET PO SCH (09:26)
[2021-04-19] MEDS: FOLIC ACID 1 MG TAB PO SCH (09:26)
[2021-04-19] MEDS: LEVOFLOXACIN 750 MG TAB PO SCH (09:27)
[2021-04-19] MEDS: ASCORBIC ACID 500 MG TAB PO SCH (09:27)
[2021-04-19] MEDS: APIXABAN 2.5 MG TABLET PO SCH ×2 (09:27→21:41)
[2021-04-19 10:59] LABS: Glucose,Whole Blood 298 mg/dL (75-99)
--- NOTE | 2021-04-19 11:26 | P.PN ---
Subjective This is a pleasant 80 years old male with multiple medical problems including diabetes mellitus, hypertension, hyperlipidemia, coronary artery disease status post stent placement and a I CAD, history of prostate cancer status post radiotherapy.. He was admitted with A. fib and RVR with elevated troponin who is evaluated by hunting sales leader and thought it is due to his A. fib and covid infection. Patient also with ischemic cardiomyopathy on AICD. Patient is alert and awake. He has some tachypnea today and dry coughing, chest x-ray showing bilateral infiltrates consistent with cough and pneumonia however he is saturating 92-94% on room air. He is already on vitamin C and D and zinc. Neurology following the patient for his generalized weakness and fall. He is currently on Eliquis 2.5 mg which his home medication, also he is on metoprolol 200 mg and Lasix 20 mg orally. Today repeat chest x-ray showed chronic changes with bilateral infiltrates similar to admission. Lavern DM is admitted for his coughing. We'll keep monitoring with cardiology, infectious disease and nephrology of the case Also patient with postural hypotension with a drop of blood pressure 118/53 on supine down to 81/48 on sitting. Labs from today are unremarkable. 04/10/2021 This is a pleasant 80 years old male who was admitted initially with A. fib and RVR with elevated troponin secondary to his cardiac disease and hunting sales leader recommended medical management. Also infectious disease team following the patient for his Covid pneumonia however he has normal respiratory distress, no significant hypoxia. Chest x-ray looks stable and infectious disease team recommended continue with the same vitamins. Patient still feels generally weak and he will benefit from ECF for rehab upon discharge per PT/OT. Neurology signed off, hunting sales leader recommended no further workup. Patient however had urinary retention today with bladder scan showing 400 mL, no Jean catheter was placed and urology team were consulted for that reason. Patient remains with some postural hypotension. However he is on Eliquis, Lasix 20 mg daily and metoprolol. 04/12/2021 Patient not in significant respiratory distress and looks calm and awake and comfortable to certain degree even he thinks he is improving however is oxygenating still on the low side and he needs 2 L of oxygen to keep saturation around 94%, related to his active Covid infection, he remains on dexamethasone and Eliquis, besides the multivitamins protocol for Covid. Also patient blood pressure is dropping to 86/40 9 at night, therefore hold Aldactone for now, continue on metoprolol in view of his A. fib and RVR on admission, also he is on oral Lasix. Jean catheter still in place and showing clear urine Check labs in the morning 04/13/2021 Patient is awake and alert, with no significant respiratory distress while at rest however he still needs 2 L of oxygen to keep his saturation of oxygen at low 90s. Jean catheter is in place and draining yellow urine. No new complaints. Patient still been treated for Covid infection and pneumonia with dexamethasone, on Rik Eliquis, multiple vitamins of vitamin C, D and zinc. Last night his blood pressure was on the low side 86/49 and still have positive orthostatic vitals so I held his Aldactone, patient remains on metoprolol as he has history of A. fib and RVR on admission. Continue with dexamethasone and Eliquis. Monitor blood pressure 04/14/2021 Patient is a still little short of breath and weak, he is tachypneic. He needs 2-4 L of oxygen to keep his saturation in the low 90s, at room air he dropped to 80s percent. He denies chest pain. No significant component. He is hemodynamically stable but he has postural drop in blood pressure bear urement from sitting to standing. Patient denies symptoms of postural dizziness or difficulty. Vitals are stable, no labs today Patient remains on dexamethasone, home dose of Eliquis, multiple vitamins 04/15/2021 Patient not in distress, is still needs 4 L of oxygen to keep saturation around 92% which is slight worsening compared to couple days ago Weakness improving. Still has Jean catheter with yellow urine. Labs look stable including d-dimer around the same 1.2, elevated more than 500 while he is on steroids area currently he's only on 10 units of NovoLog with meals. We will add 18 units of Levemir. Monitor glucose and continue with insulin sliding scale. Chest x-ray showing the same chronic bilateral infiltrates consistent with COVID-19. Plancalcitonin is normal Patient currently is on Eliquis, multiple vitamins, dexamethasone Aldactone was held for patient is with postural hypotension although it's a symptomatic for most part of it 04/16/2021 Patient weakness is improving, he has minimal respiratory symptoms while staining embedded however his oxygen requirement increased over the last 2-3 days up to 4 L/m of oxygen via nasal cannula. His blood pressure and labs are stable, no labs from today. Glucose is better controlled around 200 after adding Levemir 18-20 units at bedtime, insulin requirements needed after he was started on dexamethasone for his Covid bilateral pneumonia He is currently covered with dexamethasone, multiple vitamins, he is on Eliquis renal dose since home. Patient is not ready for discharge for his gradually worsening hypoxia. Tomorrow we'll repeat chest x-ray and labs 04/17/2021 Patient this morning was somewhat more tachypneic but no significant respiratory distress while he was lying in bed, his oxygen saturation was 90s on 4 L oxygen. His chest x-ray showing persistent infiltrates on both sides which is kind of seeing in Covid 19 pneumonia versus other by radiologist. He remains treated for chronic pneumonia including dexamethasone, multiple vitamins. Also patient is on home dose of Eliquis. His glucose is better controlled after increasing Levemir 20 units and NovoLog 12 units with meals. Inflammatory markers slightly down with see protein 4.9 and LDH 786, d-dimer slightly up to 1.5 with no significant change. Hemodynamically stable. Patient still on 4 L of oxygen. Still has a Jean catheter 04/18/2021 Patient remains in need for 4 L of fluoxetine keep saturation 91% at least, patient could not be weaned down more than that. Other than that clinically looks the same. Yesterday with no much worsening or improvement. Chest high sugar is controlled with insulin drip at 2.5 units per hour. This also continued on Eliquis 2.5 home dose, dexamethasone IV 6 mg daily, multiple vitamins for his Covid pneumonia infection 04/19/2021 A pleasant 79 years old male who was admitted initially with A. fib and RVR and elevated troponin and his been evaluated by hunting sales leader to adjusted medications. Patient also had generalized weakness and plan for him was to go for subacute rehab. Jean catheter was difficult to be placed for urinary retention, that needed urologist help. However prior to discharge patient is started to develop hypoxic respiratory failure, given the fact that he is a known case of Covid 19 infection repeat chest x-ray showing bilateral infiltrate and patient was started on dexamethasone with ID team on the case. Also he was receiving multiple vitamins for Covid cocktail. Since then he's been slowly to progress to this morning his oxygen saturation came down to 3 L/m. Patient states that the breathing is easier and his less week Patient oxygen saturation currently came down to 3 L/m, blood pressure is stable. Inflammatory markers still mildly elevated with LDH at 782 and C- reactive protein 4.4. D-dimer is stable at 1.4, chest x-ray showed peripheral infiltrate persisted without significant interval change Patient still on insulin drip at 3.5 units per hour Today we will DC Jean catheter while monitor bladder scan Patient was on Eliquis at home Objective - Vital Signs Vital signs: Vital Signs Temp 97.5 F L 04/19/21 04:45 Pulse 61 04/19/21 04:45 Resp 18 04/19/21 04:45 BP 118/61 04/19/21 04:45 Pulse Ox 93 L 04/19/21 04:45 Intake & Output 04/18/21 04/19/21 04/19/21 18:59 06:59 18:59 Intake Total 818.057 48.758 Output Total 700 1000 700 Balance 118.057 -951.242 -700 Weight 85.5 kg 72.5 kg Intake: Intake, IV Titration 38.057 48.758 Amount Insulin Regular 100 unit 38.057 48.758 In Sodium Chloride 0.9% 100 ml @ Titrate IV .Q0M [facility] Rx#:[id number] Oral 780 Output: Urine 700 1000 700 Straight 350 Other: Voiding Method Indwelling Catheter Indwelling Catheter - Exam -GENERAL: The patient is alert and oriented x3, not in any acute distress. Generally weak HEENT: Pupils are round and equally reacting to light. EOMI. No scleral icterus. No conjunctival pallor. Normocephalic, atraumatic. No pharyngeal erythema. No thyromegaly. CARDIOVASCULAR: S1 and S2 present. No murmurs, rubs, or gallops. -PULMONARY: Chest is clear to auscultation, no wheezing or crackles. Tachypnea ABDOMEN: Soft, nontender, nondistended, normoactive bowel sounds. No palpable organomegaly. MUSCULOSKELETAL: No joint swelling or deformity. EXTREMITIES: No cyanosis, clubbing, or pedal edema. NEUROLOGICAL: Gross neurological examination did not reveal any focal deficits. SKIN: No rashes. no petechiae. - Labs CBC & Chem 7: 05/22/21 07:15 04/15/21 07:26 Labs: Abnormal Lab Results - Last 24 Hours (Table) 04/18/21 04/18/21 04/18/21 Range/Units 11:29 12:54 16:00 D-Dimer (<0.60) mg/L FEU POC Glucose (mg/dL) 174 H 148 H 337 H (75-99) mg/dL Lactate Dehydrogenase (313-618) U/L C-Reactive Protein (<1.0) mg/dL 04/18/21 04/18/21 04/18/21 Range/Units 17:58 20:06 21:52 D-Dimer (<0.60) mg/L FEU POC Glucose (mg/dL) 244 H 230 H 169 H (75-99) mg/dL Lactate Dehydrogenase (313-618) U/L C-Reactive Protein (<1.0) mg/dL 04/19/21 04/19/21 04/19/21 Range/Units 00:00 01:58 04:13 D-Dimer (<0.60) mg/L FEU POC Glucose (mg/dL) 191 H 176 H 166 H (75-99) mg/dL Lactate Dehydrogenase (313-618) U/L C-Reactive Protein (<1.0) mg/dL 04/19/21 04/19/21 04/19/21 Range/Units 05:57 08:07 08:15 D-Dimer 1.47 H (<0.60) mg/L FEU POC Glucose (mg/dL) 182 H 195 H (75-99) mg/dL Lactate Dehydrogenase (313-618) U/L C-Reactive Protein (<1.0) mg/dL 04/19/21 04/19/21 Range/Units 08:15 10:58 D-Dimer (<0.60) mg/L FEU POC Glucose (mg/dL) 298 H (75-99) mg/dL Lactate Dehydrogenase 848 H (313-618) U/L C-Reactive Protein 4.4 H (<1.0) mg/dL Assessment and Plan Assessment: Covid infection with hypoxia A. fib with RVR with elevated troponin Generalized weakness and fall, being followed by neurology who signs off. Postural hypotension also may be contributing Acute urinary retention Postural hypotension, currently asymptomatic Ischemic cardiomyopathy status post AICD History of coronary artery disease status post stenting Diabetes mellitus Hypertension Hyperlipidemia Plan: A pleasant 80 years old male who presents with A. fib and generalized weakness and ischemic cardiomyopathy. Continue with the Eliquis, continue with home dose of metoprolol, and Lasix per hunting sales leader's recommendation will follow on the case closely. Hold Aldactone. Continue dexamethasone and monitor oxygen level. Continue with ID team and neurology team recommendation continue with insulin drip disContinue with Jean and Flomax for urinary retention, monitor for bladder scan Labs and medication were reviewed.. Continue same treatment. Continue with symptomatic treatment. Resume home medication. Monitor lytes and vitals. DVT and GI prophylaxis. Further recommendations as per clinical course of the patient DVT prophylaxis:On Eliquis GI Prophylaxis: Ppi PT/OT:Need subacute rehab Prognosis is guarded
[2021-04-19 12:10] LABS: Glucose,Whole Blood 286 mg/dL (75-99)
[2021-04-19 14:27] LABS: Glucose,Whole Blood 303 mg/dL (75-99)
[2021-04-19 16:06] LABS: Glucose,Whole Blood 328 mg/dL (75-99)
[2021-04-19] MEDS: FERROUS SULFATE 325 MG TAB PO SCH (17:54)
[2021-04-19] MEDS: TAMSULOSIN 0.4 MG CAP.ER.24H PO SCH (17:55)
[2021-04-19 18:07] LABS: Glucose,Whole Blood 279 mg/dL (75-99)
--- NOTE | 2021-04-19 19:12 | PN ---
PROGRESS NOTE DATE OF SERVICE: 04/19/2021 REASON FOR FOLLOWUP: COVID-19 infection. INTERVAL HISTORY: The patient is currently afebrile. The patient is breathing comfortably. The patient denies having any chest pain. He mentioned his cough has decreased in intensity. No vomiting. No abdominal pain or diarrhea. He is still hypoxic on room air and requiring supplemental oxygen, though down to 3 liters. PHYSICAL EXAMINATION: Blood pressure 119/57, pulse of 83, temperature 98. He is 90% on 3 L nasal cannula. General description is an elderly male up in the bed in no distress. RESPIRATORY SYSTEM: Unlabored breathing with decreased breath sounds at the base. No wheeze or crackle. HEART: S1, S2. Regular rate and rhythm. ABDOMEN: Soft. No tenderness. LABS: LDH is 848. D-dimer is down to 1.47. Procalcitonin is normal. DIAGNOSTIC IMPRESSION AND PLAN: Patient with acute COVID-19 infection. Patient out of therapeutic window for remdesivir. Patient is currently on Eliquis, Solu-Medrol, zinc and ascorbic acid; to continue. Advised to continue using incentive spirometry so we can wean off his oxygen and continue supportive care. MMODL / IJN: [id number] /
[2021-04-19 19:56] LABS: Glucose,Whole Blood 315 mg/dL (75-99)
[2021-04-19] MEDS: INSULIN REGULAR 100 UNIT in SODIUM CHLORIDE 0.9% 100 ML IV SCH (20:35)
[2021-04-19 21:56] LABS: Glucose,Whole Blood 265 mg/dL (75-99)
[2021-04-19 23:58] LABS: Glucose,Whole Blood 241 mg/dL (75-99)
[2021-04-20 01:53] LABS: Glucose,Whole Blood 207 mg/dL (75-99)
[2021-04-20 04:06] LABS: Glucose,Whole Blood 247 mg/dL (75-99)
[2021-04-20 06:05] LABS: Glucose,Whole Blood 181 mg/dL (75-99)
[2021-04-20] MEDS: methylPREDNISolone SOD SUCCI 125 MG/2 ML VIAL IV SCH ×4 (06:12→23:56)
[2021-04-20 08:00] LABS: Basophils % (A) 0 %; Eosinophils % (A) 0 %; HCT 37.4 % (39.0-53.0); HGB 12.5 gm/dL (13.0-17.5); Lymphocytes # (A) 0.5 k/uL (1.0-4.8); Lymphocytes % (A) 3 %; MCH 28.4 pg (25.0-35.0); MCHC 33.4 g/dL (31.0-37.0); MCV 85.1 fL (80.0-100.0); Mean Platelet Volume 8.9; Monocytes % (A) 7 %; Neutrophils # (A) 13.6 k/uL (1.3-7.7); Neutrophils % (A) 90 %; Platelet Count 353 k/uL (150-450); RBC 4.39 m/uL (4.30-5.90); RDW 13.7 % (11.5-15.5); WBC 15.1 k/uL (3.8-10.6)
[2021-04-20 08:10] LABS: Glucose,Whole Blood 238 mg/dL (75-99)
[2021-04-20 08:17] LABS: Calcium 8.5 mg/dL (8.4-10.2); Potassium 4.4 mmol/L (3.5-5.1)
[2021-04-20] MEDS: FUROSEMIDE 20 MG TAB PO SCH (09:31)
[2021-04-20] MEDS: ZINC SULFATE 220 MG CAP PO SCH (09:31)
[2021-04-20] MEDS: PANTOPRAZOLE 40 MG TABLET PO SCH (09:31)
[2021-04-20] MEDS: APIXABAN 2.5 MG TABLET PO SCH ×2 (09:31→21:32)
[2021-04-20] MEDS: CHOLECALCIFEROL 25 MCG (1000 IU) TABLET PO SCH (09:31)
[2021-04-20] MEDS: ATORVASTATIN 80 MG TAB PO SCH (09:31)
[2021-04-20] MEDS: LEVOFLOXACIN 750 MG TAB PO SCH (09:31)
[2021-04-20] MEDS: ASCORBIC ACID 500 MG TAB PO SCH (09:31)
[2021-04-20] MEDS: METOPROLOL SUCCINATE (ER) 100 MG TAB.ER.24H PO SCH (09:31)
[2021-04-20 10:06] LABS: Glucose,Whole Blood 455 mg/dL (75-99)
[2021-04-20 10:19] LABS: Glucose,Whole Blood 436 mg/dL (75-99)
[2021-04-20] MEDS: INSULIN REGULAR 100 UNIT in SODIUM CHLORIDE 0.9% 100 ML IV SCH (11:26)
--- NOTE | 2021-04-20 11:27 | P.PN ---
Subjective Progress Note Date: 04/20/21 Having difficulty voiding following catheter removal, PVR 700 mL. Butts reinserted with return of clear yellow urine. Has not complained this a.m. Objective - Vital Signs Vital signs: Vital Signs Temp 97.4 F L 04/20/21 09:30 Pulse 79 04/20/21 09:30 Resp 18 04/20/21 09:30 BP 108/54 04/20/21 09:30 Pulse Ox 94 L 04/20/21 09:30 Intake & Output 04/19/21 04/20/21 04/20/21 18:59 06:59 18:59 Intake Total 914.808 67.310 380.266 Output Total 1050 1925 Balance -135.192 -1857.690 380.266 Weight 66.5 kg Intake: Intake, IV Titration 74.808 67.310 20.266 Amount Insulin Regular 100 unit 74.808 67.310 20.266 In Sodium Chloride 0.9% 100 ml @ Titrate IV .Q0M [facility] Rx#:[id number] Oral 840 360 Output: Urine 1050 1800 Straight 700 400 Post Void Residual 125 Other: Voiding Method Indwelling Catheter Urinal Indwelling Catheter # Voids 2 # Bowel Movements 2 1 - Constitutional General appearance: Present: no acute distress - Genitourinary Genitourinary Comment(s): butts draining clear yellow urine - Psychiatric Psychiatric: Present: A&O x's 3 - Labs CBC & Chem 7: 04/20/21 07:19 04/20/21 07:19 Labs: Abnormal Lab Results - Last 24 Hours (Table) 04/19/21 04/19/21 04/19/21 Range/Units 12:09 14:26 16:04 WBC (3.8-10.6) k/uL Hgb (13.0-17.5) gm/dL Hct (39.0-53.0) % Neutrophils # (1.3-7.7) k/uL Lymphocytes # (1.0-4.8) k/uL Sodium (137-145) mmol/L BUN (9-20) mg/dL Glucose (74-99) mg/dL POC Glucose (mg/dL) 286 H 303 H 328 H (75-99) mg/dL 04/19/21 04/19/21 04/19/21 Range/Units 18:06 19:55 21:54 WBC (3.8-10.6) k/uL Hgb (13.0-17.5) gm/dL Hct (39.0-53.0) % Neutrophils # (1.3-7.7) k/uL Lymphocytes # (1.0-4.8) k/uL Sodium (137-145) mmol/L BUN (9-20) mg/dL Glucose (74-99) mg/dL POC Glucose (mg/dL) 279 H 315 H 265 H (75-99) mg/dL 04/19/21 04/20/21 04/20/21 Range/Units 23:57 01:52 04:04 WBC (3.8-10.6) k/uL Hgb (13.0-17.5) gm/dL Hct (39.0-53.0) % Neutrophils # (1.3-7.7) k/uL Lymphocytes # (1.0-4.8) k/uL Sodium (137-145) mmol/L BUN (9-20) mg/dL Glucose (74-99) mg/dL POC Glucose (mg/dL) 241 H 207 H 247 H (75-99) mg/dL 04/20/21 04/20/21 04/20/21 Range/Units 06:04 07:19 07:19 WBC 15.1 H (3.8-10.6) k/uL Hgb 12.5 L (13.0-17.5) gm/dL Hct 37.4 L (39.0-53.0) % Neutrophils # 13.6 H (1.3-7.7) k/uL Lymphocytes # 0.5 L (1.0-4.8) k/uL Sodium 134 L (137-145) mmol/L BUN 35 H (9-20) mg/dL Glucose 178 H (74-99) mg/dL POC Glucose (mg/dL) 181 H (75-99) mg/dL 04/20/21 04/20/21 04/20/21 Range/Units 08:10 10:04 10:17 WBC (3.8-10.6) k/uL Hgb (13.0-17.5) gm/dL Hct (39.0-53.0) % Neutrophils # (1.3-7.7) k/uL Lymphocytes # (1.0-4.8) k/uL Sodium (137-145) mmol/L BUN (9-20) mg/dL Glucose (74-99) mg/dL POC Glucose (mg/dL) 238 H 455 H 436 H (75-99) mg/dL Assessment and Plan Assessment: 80-year-old male admitted to the hospital with COVID pneumonia. He has history of prostate cancer treated with radiation in the past, follows up with Dr. Cruz for his prostate cancer. Developed retention on April 10, requiring catheter placement by Dr. Cruz. Still having difficulty voiding after Butts removal with a PVR of 700 mL. Butts has been reinserted -Keep Butts in place for 2 weeks, and follow-up as an outpatient in 2 weeks for trial of void Dr. Cruz. If patient is still at long term at that time then can have trial of void in the long term We'll start on Flomax, will discharge with Flomax
[2021-04-20] MEDS: FOLIC ACID 1 MG TAB PO SCH (11:28)
[2021-04-20 11:58] LABS: Glucose,Whole Blood 467 mg/dL (75-99)
[2021-04-20 11:58] LABS: Glucose,Whole Blood 578 mg/dL (75-99)
[2021-04-20 14:04] LABS: Glucose,Whole Blood 364 mg/dL (75-99)
[2021-04-20 16:38] LABS: Glucose,Whole Blood 300 mg/dL (75-99)
--- NOTE | 2021-04-20 18:03 | PN ---
PROGRESS NOTE DATE OF SERVICE: 04/20/2021 REASON FOR FOLLOWUP: COVID-19 pneumonia. INTERVAL HISTORY: The patient is afebrile. The patient is feeling much better. The patient's breathing has improved. The cough has decreased in intensity. Not bringing up any sputum. No nausea, no vomiting. No abdominal pain or diarrhea. PHYSICAL EXAMINATION: Blood pressure 97/60 with a pulse of 83, temperature is 98.4. He is 92% on 4 L nasal cannula. General description is an elderly male up in the chair in no distress. Respiratory system: Unlabored breathing, decreased breath sounds at the base, no wheeze. Heart S1, S2. Regular rate and rhythm. Abdomen soft, no tenderness. LABS: No new labs have been obtained today. DIAGNOSTIC IMPRESSION AND PLAN: Patient with acute COVID-19 infection. The patient is currently on Eliquis, Solu- Medrol, zinc and ascorbic acid. Slowing weaning off his steroids and will monitor clinical course closely. MMODL / IJN: [id number] /
[2021-04-20] MEDS: INSULIN ASPART (NovoLOG) 100 UNIT/ML VIAL SQ SCH ×2 (18:04→21:32)
[2021-04-20] MEDS: TAMSULOSIN 0.4 MG CAP.ER.24H PO SCH (18:04)
[2021-04-20 19:47] LABS: Glucose,Whole Blood 397 mg/dL (75-99)
[2021-04-21 06:07] LABS: Glucose,Whole Blood 287 mg/dL (75-99)
[2021-04-21] MEDS: methylPREDNISolone SOD SUCCI 125 MG/2 ML VIAL IV SCH ×3 (06:57→21:31)
[2021-04-21] MEDS: INSULIN ASPART (NovoLOG) 100 UNIT/ML VIAL SQ SCH ×3 (06:58→21:32)
[2021-04-21 07:34] LABS: Glucose,Whole Blood 288 mg/dL (75-99)
--- NOTE | 2021-04-21 08:26 | P.PN ---
Subjective Progress Note Date: 04/20/21 Principal diagnosis: COVID-19 viral infection with hypoxia A. fib with RVR with elevated troponin Acute urinary retention 80 years old male with multiple medical problems including diabetes mellitus, hypertension, hyperlipidemia, coronary artery disease status post stent placem ent and a I CAD, history of prostate cancer status post radiotherapy.. He was admitted with A. fib and RVR with elevated troponin who is evaluated by equine dentist and thought it is due to his A. fib and covid infection. Patient also with ischemic cardiomyopathy on AICD. Patient is alert and awake. He has some tachypnea today and dry coughing, chest x-ray showing bilateral infiltrates consistent with cough and pneumonia however he is saturating 92-94% on room air. He is already on vitamin C and D and zinc. Neurology following the patient for his generalized weakness and fall. He is currently on Eliquis 2.5 mg which his home medication, also he is on metoprolol 200 mg and Lasix 20 mg orally. Today repeat chest x-ray showed chronic changes with bilateral infiltrates similar to admission. Nolanbalaji DM is admitted for his coughing. We'll keep monitoring with cardiology, infectious disease and nephrology of the case Also patient with postural hypotension with a drop of blood pressure 118/53 on supine down to 81/48 on sitting. 04/20/2021 Patient is seen and evaluated in room at bedside; continues to have urinary retention with difficulty voiding; PVR of 700 mL after Jean was removed Vital signs remained stable with a temperature 97.4, pulse ox 90, respiration 18 and blood pressure 108/54; O2 saturation of 94% Lab review shows a white blood count of 15.1, hemoglobin of 12.3 and platelet count of 354; chemical profile is stable with sodium of 134, potassium of 4.4, BUN/creatinine of 35/0.94 and blood glucose of 178 Urology on board for urinary retention and recommending 2-D insert Jean for a PVR of 700 mL; patient will keep Jean for 2 weeks and follow-up with urology as an outpatient for trial of void; patient has been placed on Flomax 0.4 mg daily Patient to be discharged to skilled rehab possibly on Thursday Objective - Vital Signs Vital signs: Vital Signs Temp 97.4 F L 04/20/21 11:42 Pulse 83 04/20/21 11:42 Resp 18 04/20/21 11:42 BP 97/53 04/20/21 11:42 Pulse Ox 92 L 04/20/21 11:42 Intake & Output 04/19/21 04/20/21 04/20/21 18:59 06:59 18:59 Intake Total 914.808 67.310 393.766 Output Total 1050 1925 Balance -135.192 -1857.690 393.766 Weight 66.5 kg Intake: Intake, IV Titration 74.808 67.310 33.766 Amount Insulin Regular 100 unit 74.808 67.310 33.766 In Sodium Chloride 0.9% 100 ml @ Titrate IV .Q0M [facility] Rx#:[id number] Oral 840 360 Output: Urine 1050 1800 Straight 700 400 Post Void Residual 125 Other: Voiding Method Indwelling Catheter Urinal Indwelling Catheter # Voids 2 # Bowel Movements 2 1 - Exam -GENERAL: The patient is alert and oriented x3, not in any acute distress. Generally weak HEENT: Pupils are round and equally reacting to light. EOMI. No scleral icterus. No conjunctival pallor. Normocephalic, atraumatic. No pharyngeal erythema. No thyromegaly. CARDIOVASCULAR: S1 and S2 present. No murmurs, rubs, or gallops. -PULMONARY: Chest is clear to auscultation, no wheezing or crackles. Tachypnea ABDOMEN: Soft, nontender, nondistended, normoactive bowel sounds. No palpable organomegaly. MUSCULOSKELETAL: No joint swelling or deformity. EXTREMITIES: No cyanosis, clubbing, or pedal edema. NEUROLOGICAL: Gross neurological examination did not reveal any focal deficits. SKIN: No rashes. no petechiae. - Labs CBC & Chem 7: 04/20/21 07:19 04/20/21 07:19 Labs: Abnormal Lab Results - Last 24 Hours (Table) 04/19/21 04/19/21 04/19/21 Range/Units 12:09 14:26 16:04 WBC (3.8-10.6) k/uL Hgb (13.0-17.5) gm/dL Hct (39.0-53.0) % Neutrophils # (1.3-7.7) k/uL Lymphocytes # (1.0-4.8) k/uL Sodium (137-145) mmol/L BUN (9-20) mg/dL Glucose (74-99) mg/dL POC Glucose (mg/dL) 286 H 303 H 328 H (75-99) mg/dL 04/19/21 04/19/21 04/19/21 Range/Units 18:06 19:55 21:54 WBC (3.8-10.6) k/uL Hgb (13.0-17.5) gm/dL Hct (39.0-53.0) % Neutrophils # (1.3-7.7) k/uL Lymphocytes # (1.0-4.8) k/uL Sodium (137-145) mmol/L BUN (9-20) mg/dL Glucose (74-99) mg/dL POC Glucose (mg/dL) 279 H 315 H 265 H (75-99) mg/dL 04/19/21 04/20/21 04/20/21 Range/Units 23:57 01:52 04:04 WBC (3.8-10.6) k/uL Hgb (13.0-17.5) gm/dL Hct (39.0-53.0) % Neutrophils # (1.3-7.7) k/uL Lymphocytes # (1.0-4.8) k/uL Sodium (137-145) mmol/L BUN (9-20) mg/dL Glucose (74-99) mg/dL POC Glucose (mg/dL) 241 H 207 H 247 H (75-99) mg/dL 04/20/21 04/20/21 04/20/21 Range/Units 06:04 07:19 07:19 WBC 15.1 H (3.8-10.6) k/uL Hgb 12.5 L (13.0-17.5) gm/dL Hct 37.4 L (39.0-53.0) % Neutrophils # 13.6 H (1.3-7.7) k/uL Lymphocytes # 0.5 L (1.0-4.8) k/uL Sodium 134 L (137-145) mmol/L BUN 35 H (9-20) mg/dL Glucose 178 H (74-99) mg/dL POC Glucose (mg/dL) 181 H (75-99) mg/dL 04/20/21 04/20/21 04/20/21 Range/Units 08:10 10:04 10:17 WBC (3.8-10.6) k/uL Hgb (13.0-17.5) gm/dL Hct (39.0-53.0) % Neutrophils # (1.3-7.7) k/uL Lymphocytes # (1.0-4.8) k/uL Sodium (137-145) mmol/L BUN (9-20) mg/dL Glucose (74-99) mg/dL POC Glucose (mg/dL) 238 H 455 H 436 H (75-99) mg/dL 04/20/21 04/20/21 Range/Units 11:55 11:56 WBC (3.8-10.6) k/uL Hgb (13.0-17.5) gm/dL Hct (39.0-53.0) % Neutrophils # (1.3-7.7) k/uL Lymphocytes # (1.0-4.8) k/uL Sodium (137-145) mmol/L BUN (9-20) mg/dL Glucose (74-99) mg/dL POC Glucose (mg/dL) 578 H 467 H (75-99) mg/dL Assessment and Plan Assessment: Covid infection with hypoxia A. fib with RVR with elevated troponin Generalized weakness and fall, being followed by neurology who signs off. P ostural hypotension also may be contributing Acute urinary retention Postural hypotension, currently asymptomatic Ischemic cardiomyopathy status post AICD History of coronary artery disease status post stenting Diabetes mellitus Hypertension Hyperlipidemia Plan: A pleasant 80 years old male who presents with A. fib and generalized weakness and ischemic cardiomyopathy. Continue with the Eliquis, continue with home dose of metoprolol, and Lasix per equine dentist's recommendation will follow on the case closely. Hold Aldactone. Continue dexamethasone and monitor oxygen level. Continue with ID team and neurology team recommendation continue with insulin drip disContinue with Jean and Flomax for urinary retention, monitor for bladder scan Labs and medication were reviewed.. Continue same treatment. Continue with symptomatic treatment. Resume home medication. Monitor lytes and vitals. DVT and GI prophylaxis. Further recommendations as per clinical course of the patient DVT prophylaxis:On Eliquis GI Prophylaxis: Ppi PT/OT:Need subacute rehab
[2021-04-21] MEDS: METOPROLOL SUCCINATE (ER) 100 MG TAB.ER.24H PO SCH (09:48)
[2021-04-21] MEDS: ATORVASTATIN 80 MG TAB PO SCH (09:49)
[2021-04-21] MEDS: FUROSEMIDE 20 MG TAB PO SCH (09:49)
[2021-04-21] MEDS: ASCORBIC ACID 500 MG TAB PO SCH (09:49)
[2021-04-21] MEDS: LEVOFLOXACIN 750 MG TAB PO SCH (09:49)
[2021-04-21] MEDS: APIXABAN 2.5 MG TABLET PO SCH ×2 (09:49→21:31)
[2021-04-21] MEDS: PANTOPRAZOLE 40 MG TABLET PO SCH (09:49)
[2021-04-21] MEDS: CHOLECALCIFEROL 25 MCG (1000 IU) TABLET PO SCH (09:49)
[2021-04-21] MEDS: ZINC SULFATE 220 MG CAP PO SCH (09:49)
[2021-04-21 12:10] LABS: Glucose,Whole Blood 311 mg/dL (75-99)
[2021-04-21] MEDS: FOLIC ACID 1 MG TAB PO SCH (12:58)
[2021-04-21 17:36] LABS: Glucose,Whole Blood 391 mg/dL (75-99)
[2021-04-21] MEDS ORDERED: INSULIN ASPART (NovoLOG) 100 UNIT/ML VIAL SQ SCH (17:55)
[2021-04-21] MEDS: TAMSULOSIN 0.4 MG CAP.ER.24H PO SCH (18:06)
[2021-04-21] MEDS: FERROUS SULFATE 325 MG TAB PO SCH (18:06)
--- NOTE | 2021-04-21 18:20 | PN ---
PROGRESS NOTE DATE OF SERVICE: 04/21/2021 REASON FOR FOLLOWUP: COVID-19 pneumonia. INTERVAL HISTORY: The patient is currently afebrile. The patient is feeling better. He is breathing more comfortably. The patient mentioned he is able to take a deep breath. No abdominal pain or diarrhea. PHYSICAL EXAMINATION: Blood pressure 121/77, pulse of 87, temperature 97.9. He is 97% on 3 L nasal cannula. General description is an elderly male up in the chair in no distress. Respiratory system: Unlabored breathing, decreased breath sounds in the base, no wheeze. Heart: S1, S2. Regular rate and rhythm. Abdomen soft, no tenderness. LABS: No new labs have been obtained today. DIAGNOSTIC IMPRESSION AND PLAN: Patient with acute COVID-19 pneumonia. This patient did show overall improvement with addition of the Solu-Medrol. However, will cut it back to q.12 hours and slowly wean off. Continue with Eliquis and ascorbic acid and monitor clinical course closely. MMODL / IJN: [id number] /
[2021-04-21 20:00] LABS: Glucose,Whole Blood 365 mg/dL (75-99)
--- NOTE | 2021-04-21 20:08 | P.PN ---
Subjective Progress Note Date: 04/21/21 Principal diagnosis: COVID-19 viral infection with hypoxia A. fib with RVR with elevated troponin Acute urinary retention 80 years old male with multiple medical problems including diabetes mellitus, hypertension, hyperlipidemia, coronary artery disease status post stent placem ent and a I CAD, history of prostate cancer status post radiotherapy.. He was admitted with A. fib and RVR with elevated troponin who is evaluated by boilermaker mechanic and thought it is due to his A. fib and covid infection. Patient also with ischemic cardiomyopathy on AICD. Patient is alert and awake. He has some tachypnea today and dry coughing, chest x-ray showing bilateral infiltrates consistent with cough and pneumonia however he is saturating 92-94% on room air. He is already on vitamin C and D and zinc. Neurology following the patient for his generalized weakness and fall. He is currently on Eliquis 2.5 mg which his home medication, also he is on metoprolol 200 mg and Lasix 20 mg orally. Today repeat chest x-ray showed chronic changes with bilateral infiltrates similar to admission. Tiaevelio DM is admitted for his coughing. We'll keep monitoring with cardiology, infectious disease and nephrology of the case Also patient with postural hypotension with a drop of blood pressure 118/53 on supine down to 81/48 on sitting. 04/20/2021 Patient is seen and evaluated in room at bedside; continues to have urinary retention with difficulty voiding; PVR of 700 mL after Jean was removed Vital signs remained stable with a temperature 97.4, pulse ox 90, respiration 18 and blood pressure 108/54; O2 saturation of 94% Lab review shows a white blood count of 15.1, hemoglobin of 12.3 and platelet count of 354; chemical profile is stable with sodium of 134, potassium of 4.4, BUN/creatinine of 35/0.94 and blood glucose of 178 Urology on board for urinary retention and recommending 2-D insert Jean for a PVR of 700 mL; patient will keep Jean for 2 weeks and follow-up with urology as an outpatient for trial of void; patient has been placed on Flomax 0.4 mg daily Patient to be discharged to skilled rehab possibly on Thursday04/21/2021 Patient is seen and evaluated in room at bedside; continues to show overall improvement; being treated for acute COVID-19 pneumonia Vital signs are stable with temperature of 97.9, pulse 87, blood pressure 121/77 and O2 saturation of 97% on 3 L Patient does show improvement with addition off IV Solu-Medrol; we will taper it down to every 12 hours dosing with plan to slowly wean it off; patient remains on anticoagulation and Covid 19 vitamin cocktail Patient to be discharged to skilled rehab once stable Objective - Vital Signs Vital signs: Vital Signs Temp 97.9 F 04/21/21 09:45 Pulse 87 04/21/21 14:00 Resp 16 04/21/21 14:00 BP 121/77 04/21/21 13:00 Pulse Ox 97 04/21/21 13:00 Intake & Output 04/21/21 04/21/21 04/22/21 06:59 18:59 06:59 Output Total 1025 700 Balance -1025 -700 Weight 74 kg Output: Urine 1025 700 Other: Voiding Method Indwelling Catheter Indwelling Catheter # Bowel Movements 1 - Exam -GENERAL: The patient is alert and oriented x3, not in any acute distress. Generally weak HEENT: Pupils are round and equally reacting to light. EOMI. No scleral icterus. No conjunctival pallor. Normocephalic, atraumatic. No pharyngeal erythema. No thyromegaly. CARDIOVASCULAR: S1 and S2 present. No murmurs, rubs, or gallops. -PULMONARY: Chest is clear to auscultation, no wheezing or crackles. Tachypnea ABDOMEN: Soft, nontender, nondistended, normoactive bowel sounds. No palpable organomegaly. MUSCULOSKELETAL: No joint swelling or deformity. EXTREMITIES: No cyanosis, clubbing, or pedal edema. NEUROLOGICAL: Gross neurological examination did not reveal any focal deficits. SKIN: No rashes. no petechiae. - Labs CBC & Chem 7: 04/20/21 07:19 04/20/21 07:19 Labs: Abnormal Lab Results - Last 24 Hours (Table) 04/21/21 04/21/21 04/21/21 Range/Units 06:05 07:32 12:04 POC Glucose (mg/dL) 287 H 288 H 311 H (75-99) mg/dL 04/21/21 04/21/21 Range/Units 17:33 19:57 POC Glucose (mg/dL) 391 H 365 H (75-99) mg/dL Assessment and Plan Assessment: Covid infection with hypoxia A. fib with RVR with elevated troponin Generalized weakness and fall, being followed by neurology who signs off. Postural hypotension also may be contributing Acute urinary retention Postural hypotension, currently asymptomatic Ischemic cardiomyopathy status post AICD History of coronary artery disease status post stenting Diabetes mellitus Hypertension Hyperlipidemia Plan: A pleasant 80 years old male who presents with A. fib and generalized weakness and ischemic cardiomyopathy. Continue with the Eliquis, continue with home dose of metoprolol, and Lasix per boilermaker mechanic's recommendation will follow on the case closely. Hold Aldactone. Continue dexamethasone and monitor oxygen level. Continue with ID team and neurology team recommendation continue with insulin drip disContinue with Jean and Flomax for urinary retention, monitor for bladder scan Labs and medication were reviewed.. Continue same treatment. Continue with symptomatic treatment. Resume home medication. Monitor lytes and vitals. DVT and GI prophylaxis. Further recommendations as per clinical course of the patient DVT prophylaxis:On Eliquis GI Prophylaxis: Ppi PT/OT:Need subacute rehab
[2021-04-21] MEDS: INSULIN DETEMIR (LEVEMIR) 100 UNIT/ML SYR SQ SCH (21:32)
[2021-04-21 22:29] LABS: Magnesium 2.1 mg/dL (1.6-2.3); Potassium 4.9 mmol/L (3.5-5.1)
[2021-04-22 06:24] LABS: Glucose,Whole Blood 238 mg/dL (75-99)
[2021-04-22] MEDS: INSULIN ASPART (NovoLOG) 100 UNIT/ML VIAL SQ SCH ×5 (06:54→21:03)
[2021-04-22 08:06] LABS: Basophils % (A) 0 %; Eosinophils % (A) 0 %; HCT 41.6 % (39.0-53.0); HGB 13.8 gm/dL (13.0-17.5); Lymphocytes # (A) 0.3 k/uL (1.0-4.8); Lymphocytes % (A) 2 %; MCH 28.5 pg (25.0-35.0); MCHC 33.2 g/dL (31.0-37.0); MCV 85.9 fL (80.0-100.0); Mean Platelet Volume 8.9; Monocytes # (A) 0.9 k/uL (0-1.0); Monocytes % (A) 5 %; Neutrophils # (A) 15.3 k/uL (1.3-7.7); Neutrophils % (A) 92 %; Platelet Count 329 k/uL (150-450); RBC 4.85 m/uL (4.30-5.90); RDW 13.8 % (11.5-15.5); WBC 16.6 k/uL (3.8-10.6)
[2021-04-22 08:17] LABS: Calcium 8.5 mg/dL (8.4-10.2); Potassium 4.6 mmol/L (3.5-5.1)
[2021-04-22] MEDS: METOPROLOL SUCCINATE (ER) 100 MG TAB.ER.24H PO SCH (10:16)
[2021-04-22] MEDS: ATORVASTATIN 80 MG TAB PO SCH (10:17)
[2021-04-22] MEDS: LEVOFLOXACIN 750 MG TAB PO SCH (10:17)
[2021-04-22] MEDS: CHOLECALCIFEROL 25 MCG (1000 IU) TABLET PO SCH (10:17)
[2021-04-22] MEDS: APIXABAN 2.5 MG TABLET PO SCH ×2 (10:17→21:02)
[2021-04-22] MEDS: ASCORBIC ACID 500 MG TAB PO SCH (10:17)
[2021-04-22] MEDS: FUROSEMIDE 20 MG TAB PO SCH (10:17)
[2021-04-22] MEDS: ZINC SULFATE 220 MG CAP PO SCH (10:17)
[2021-04-22] MEDS: PANTOPRAZOLE 40 MG TABLET PO SCH (10:17)
[2021-04-22] MEDS: methylPREDNISolone SOD SUCCI 125 MG/2 ML VIAL IV SCH ×2 (10:18→21:02)
[2021-04-22 12:13] LABS: Ferritin 227.7 ng/mL (22.0-322.0)
[2021-04-22 12:23] LABS: Glucose,Whole Blood 227 mg/dL (75-99)
--- NOTE | 2021-04-22 12:57 | P.PN ---
Subjective This is a pleasant 80 years old male with multiple medical problems including diabetes mellitus, hypertension, hyperlipidemia, coronary artery disease status post stent placement and a I CAD, history of prostate cancer status post radiotherapy.. He was admitted with A. fib and RVR with elevated troponin who is evaluated by guideman and thought it is due to his A. fib and covid infection. Patient also with ischemic cardiomyopathy on AICD. Patient is alert and awake. He has some tachypnea today and dry coughing, chest x-ray showing bilateral infiltrates consistent with cough and pneumonia however he is saturating 92-94% on room air. He is already on vitamin C and D and zinc. Neurology following the patient for his generalized weakness and fall. He is currently on Eliquis 2.5 mg which his home medication, also he is on metoprolol 200 mg and Lasix 20 mg orally. Today repeat chest x-ray showed chronic changes with bilateral infiltrates similar to admission. Lavern DM is admitted for his coughing. We'll keep monitoring with cardiology, infectious disease and nephrology of the case Also patient with postural hypotension with a drop of blood pressure 118/53 on supine down to 81/48 on sitting. Labs from today are unremarkable. 04/10/2021 This is a pleasant 80 years old male who was admitted initially with A. fib and RVR with elevated troponin secondary to his cardiac disease and guideman recommended medical management. Also infectious disease team following the patient for his Covid pneumonia however he has normal respiratory distress, no significant hypoxia. Chest x-ray looks stable and infectious disease team recommended continue with the same vitamins. Patient still feels generally weak and he will benefit from ECF for rehab upon discharge per PT/OT. Neurology signed off, guideman recommended no further workup. Patient however had urinary retention today with bladder scan showing 400 mL, no Jean catheter was placed and urology team were consulted for that reason. Patient remains with some postural hypotension. However he is on Eliquis, Lasix 20 mg daily and metoprolol. 04/12/2021 Patient not in significant respiratory distress and looks calm and awake and comfortable to certain degree even he thinks he is improving however is oxygenating still on the low side and he needs 2 L of oxygen to keep saturation around 94%, related to his active Covid infection, he remains on dexamethasone and Eliquis, besides the multivitamins protocol for Covid. Also patient blood pressure is dropping to 86/40 9 at night, therefore hold Aldactone for now, continue on metoprolol in view of his A. fib and RVR on admission, also he is on oral Lasix. Jean catheter still in place and showing clear urine Check labs in the morning 04/13/2021 Patient is awake and alert, with no significant respiratory distress while at rest however he still needs 2 L of oxygen to keep his saturation of oxygen at low 90s. Jean catheter is in place and draining yellow urine. No new complaints. Patient still been treated for Covid infection and pneumonia with dexamethasone, on Rik Eliquis, multiple vitamins of vitamin C, D and zinc. Last night his blood pressure was on the low side 86/49 and still have positive orthostatic vitals so I held his Aldactone, patient remains on metoprolol as he has history of A. fib and RVR on admission. Continue with dexamethasone and Eliquis. Monitor blood pressure 04/14/2021 Patient is a still little short of breath and weak, he is tachypneic. He needs 2-4 L of oxygen to keep his saturation in the low 90s, at room air he dropped to 80s percent. He denies chest pain. No significant component. He is hemodynamically stable but he has postural drop in blood pressure bear urement from sitting to standing. Patient denies symptoms of postural dizziness or difficulty. Vitals are stable, no labs today Patient remains on dexamethasone, home dose of Eliquis, multiple vitamins 04/15/2021 Patient not in distress, is still needs 4 L of oxygen to keep saturation around 92% which is slight worsening compared to couple days ago Weakness improving. Still has Jean catheter with yellow urine. Labs look stable including d-dimer around the same 1.2, elevated more than 500 while he is on steroids area currently he's only on 10 units of NovoLog with meals. We will add 18 units of Levemir. Monitor glucose and continue with insulin sliding scale. Chest x-ray showing the same chronic bilateral infiltrates consistent with COVID-19. Plancalcitonin is normal Patient currently is on Eliquis, multiple vitamins, dexamethasone Aldactone was held for patient is with postural hypotension although it's a symptomatic for most part of it 04/16/2021 Patient weakness is improving, he has minimal respiratory symptoms while staining embedded however his oxygen requirement increased over the last 2-3 days up to 4 L/m of oxygen via nasal cannula. His blood pressure and labs are stable, no labs from today. Glucose is better controlled around 200 after adding Levemir 18-20 units at bedtime, insulin requirements needed after he was started on dexamethasone for his Covid bilateral pneumonia He is currently covered with dexamethasone, multiple vitamins, he is on Eliquis renal dose since home. Patient is not ready for discharge for his gradually worsening hypoxia. Tomorrow we'll repeat chest x-ray and labs 04/17/2021 Patient this morning was somewhat more tachypneic but no significant respiratory distress while he was lying in bed, his oxygen saturation was 90s on 4 L oxygen. His chest x-ray showing persistent infiltrates on both sides which is kind of seeing in Covid 19 pneumonia versus other by radiologist. He remains treated for chronic pneumonia including dexamethasone, multiple vitamins. Also patient is on home dose of Eliquis. His glucose is better controlled after increasing Levemir 20 units and NovoLog 12 units with meals. Inflammatory markers slightly down with see protein 4.9 and LDH 786, d-dimer slightly up to 1.5 with no significant change. Hemodynamically stable. Patient still on 4 L of oxygen. Still has a Jean catheter 04/18/2021 Patient remains in need for 4 L of fluoxetine keep saturation 91% at least, patient could not be weaned down more than that. Other than that clinically looks the same. Yesterday with no much worsening or improvement. Chest high sugar is controlled with insulin drip at 2.5 units per hour. This also continued on Eliquis 2.5 home dose, dexamethasone IV 6 mg daily, multiple vitamins for his Covid pneumonia infection 04/19/2021 A pleasant 79 years old male who was admitted initially with A. fib and RVR and elevated troponin and his been evaluated by guideman to adjusted medications. Patient also had generalized weakness and plan for him was to go for subacute rehab. Jean catheter was difficult to be placed for urinary retention, that needed urologist help. However prior to discharge patient is started to develop hypoxic respiratory failure, given the fact that he is a known case of Covid 19 infection repeat chest x-ray showing bilateral infiltrate and patient was started on dexamethasone with ID team on the case. Also he was receiving multiple vitamins for Covid cocktail. Since then he's been slowly to progress to this morning his oxygen saturation came down to 3 L/m. Patient states that the breathing is easier and his less week Patient oxygen saturation currently came down to 3 L/m, blood pressure is stable. Inflammatory markers still mildly elevated with LDH at 782 and C- reactive protein 4.4. D-dimer is stable at 1.4, chest x-ray showed peripheral infiltrate persisted without significant interval change Patient still on insulin drip at 3.5 units per hour Today we will DC Jean catheter while monitor bladder scan Patient was on Eliquis at home Subjective: 04/22/2021 Patient is a still on 3 L oxygen via nasal cannula. His breathing is easier. His WBC is 16.6 K. D-dimer is stable at 1.4. Basic metabolic panel is unremarkable.. LDH elevated at 876 which is a stable. Glucose is an 200. Levemir 20 units at bedtime started. We'll add NovoLog 5 units with meals Currently patient was placed on Solu-Medrol 60 mg twice daily. Also Levaquin 750 mg daily We will check chest x-ray tomorrow Jean catheter has to be reinserted Objective - Vital Signs Vital signs: Vital Signs Temp 97.4 F L 04/22/21 10:05 Pulse 54 L 04/22/21 10:05 Resp 17 04/22/21 10:05 BP 107/53 04/22/21 10:05 Pulse Ox 92 L 04/22/21 10:05 Intake & Output 04/21/21 04/22/21 04/22/21 18:59 06:59 18:59 Intake Total 100 440 Output Total 700 1000 1000 Balance -700 -900 -560 Weight 75 kg Intake: Oral 100 440 Output: Urine 700 1000 1000 Other: Voiding Method Indwelling Catheter Indwelling Catheter Indwelling Catheter # Bowel Movements 1 - Exam -GENERAL: The patient is alert and oriented x3, not in any acute distress. Generally weak HEENT: Pupils are round and equally reacting to light. EOMI. No scleral icterus. No conjunctival pallor. Normocephalic, atraumatic. No pharyngeal erythema. No thyromegaly. CARDIOVASCULAR: S1 and S2 present. No murmurs, rubs, or gallops. -PULMONARY: Chest is clear to auscultation, no wheezing or crackles. Tachypnea ABDOMEN: Soft, nontender, nondistended, normoactive bowel sounds. No palpable organomegaly. MUSCULOSKELETAL: No joint swelling or deformity. EXTREMITIES: No cyanosis, clubbing, or pedal edema. NEUROLOGICAL: Gross neurological examination did not reveal any focal deficits. SKIN: No rashes. no petechiae. - Labs CBC & Chem 7: 04/22/21 07:42 04/22/21 07:42 Labs: Abnormal Lab Results - Last 24 Hours (Table) 04/21/21 04/21/21 04/22/21 Range/Units 17:33 19:57 06:16 WBC (3.8-10.6) k/uL Neutrophils # (1.3-7.7) k/uL Lymphocytes # (1.0-4.8) k/uL D-Dimer (<0.60) mg/L FEU Sodium (137-145) mmol/L BUN (9-20) mg/dL Glucose (74-99) mg/dL POC Glucose (mg/dL) 391 H 365 H 238 H (75-99) mg/dL Lactate Dehydrogenase (313-618) U/L 04/22/21 04/22/21 04/22/21 Range/Units 07:42 07:42 07:42 WBC 16.6 H (3.8-10.6) k/uL Neutrophils # 15.3 H (1.3-7.7) k/uL Lymphocytes # 0.3 L (1.0-4.8) k/uL D-Dimer 1.41 H (<0.60) mg/L FEU Sodium 135 L (137-145) mmol/L BUN 38 H (9-20) mg/dL Glucose 193 H (74-99) mg/dL POC Glucose (mg/dL) (75-99) mg/dL Lactate Dehydrogenase 876 H (313-618) U/L 04/22/21 Range/Units 12:13 WBC (3.8-10.6) k/uL Neutrophils # (1.3-7.7) k/uL Lymphocytes # (1.0-4.8) k/uL D-Dimer (<0.60) mg/L FEU Sodium (137-145) mmol/L BUN (9-20) mg/dL Glucose (74-99) mg/dL POC Glucose (mg/dL) 227 H (75-99) mg/dL Lactate Dehydrogenase (313-618) U/L Assessment and Plan Assessment: Covid infection with hypoxia A. fib with RVR with elevated troponin Generalized weakness and fall, being followed by neurology who signs off. Postural hypotension also may be contributing Acute urinary retention Postural hypotension, currently asymptomatic Ischemic cardiomyopathy status post AICD History of coronary artery disease status post stenting Diabetes mellitus Hypertension Hyperlipidemia Plan: A pleasant 80 years old male who presents with A. fib and generalized weakness and ischemic cardiomyopathy. Continue with the Eliquis, continue with home dose of metoprolol, and Lasix per guideman's recommendation will follow on the case closely. Hold Aldactone. Continue Solu-Medrol and monitor oxygen level. Continue with Levaquin per ID team. Continue with ID team and neurology team recommendation continue with insulin drip Continue with Jean and Flomax for urinary retention, follow-up with urologist as an outpatient Labs and medication were reviewed.. Continue same treatment. Continue with symptomatic treatment. Resume home medication. Monitor lytes and vitals. DVT and GI prophylaxis. Further recommendations as per clinical course of the patient DVT prophylaxis:On Eliquis GI Prophylaxis: Ppi PT/OT:Need subacute rehab Prognosis is guarded
[2021-04-22] MEDS: FOLIC ACID 1 MG TAB PO SCH (14:00)
[2021-04-22 17:18] LABS: Glucose,Whole Blood 343 mg/dL (75-99)
[2021-04-22] MEDS: TAMSULOSIN 0.4 MG CAP.ER.24H PO SCH (17:46)
[2021-04-22 20:06] LABS: Glucose,Whole Blood 331 mg/dL (75-99)
[2021-04-22] MEDS: INSULIN DETEMIR (LEVEMIR) 100 UNIT/ML SYR SQ SCH (21:03)
--- NOTE | 2021-04-23 00:04 | PN ---
PROGRESS NOTE DATE OF SERVICE: 04/22/2021 REASON FOR FOLLOWUP: COVID-19 pneumonia. INTERVAL HISTORY: The patient is currently afebrile. The patient is breathing more comfortably. The patient denies having any chest pain. The patient's cough has decreased in intensity. No vomiting. No abdominal pain. Did have some diarrhea. PHYSICAL EXAMINATION: Blood pressure 110/54 with a pulse of 70, temperature 97.4. He is 93% on 3 L nasal cannula. General description is an elderly male up in the chair in no distress. Respiratory system: Unlabored breathing, with decreased intensity of breath sounds in the base, with no wheeze. Heart S1, S2. Regular rate and rhythm. Abdomen soft, no tenderness. LABS: Hemoglobin is 13.8, white count 15.6. D. dimer is down to 1.41, BUN of 30, creatinine 1.00 and is slightly up. DIAGNOSTIC IMPRESSION AND PLAN: Patient with acute COVID-19 infection in this patient seemed to be slow clinical improvement, currently on Solu-Medrol, Eliquis and ascorbic acid, and respiratory support. Has been encouraged to increase his incentive spirometry so we can slowly wean off his oxygen and monitor clinical course closely. MMODL / IJN: [id number] /
[2021-04-23 03:35] VITALS: RESP 16
[2021-04-23 07:20] LABS: Glucose,Whole Blood 218 mg/dL (75-99)
--- NOTE | 2021-04-23 08:00 | XR ---
EXAMINATION TYPE: XR chest 1V DATE OF EXAM: 04/23/2021 COMPARISON: 04/19/2012 HISTORY: Shortness of breath TECHNIQUE: Single frontal view of the chest is obtained. FINDINGS: Bilateral infiltrates greater along the periphery stable. Postsurgical changes are seen an d there is cardiac device and atherosclerotic change aorta. Small bilateral pleural effusions. Correl ate for underlying COPD. Heart size stable. Arthropathy of the shoulders. IMPRESSION: Stable bilateral infiltrates
[2021-04-23 08:35] LABS: Basophils % (A) 0 %; Eosinophils # (A) 0.1 k/uL (0-0.7); Eosinophils % (A) 0 %; HCT 41.4 % (39.0-53.0); HGB 13.3 gm/dL (13.0-17.5); Lymphocytes # (A) 0.4 k/uL (1.0-4.8); Lymphocytes % (A) 2 %; MCH 27.8 pg (25.0-35.0); MCV 86.8 fL (80.0-100.0); Mean Platelet Volume 8.6; Monocytes # (A) 0.9 k/uL (0-1.0); Monocytes % (A) 5 %; Neutrophils # (A) 16.8 k/uL (1.3-7.7); Neutrophils % (A) 92 %; Platelet Count 274 k/uL (150-450); RBC 4.77 m/uL (4.30-5.90); WBC 18.2 k/uL (3.8-10.6)
[2021-04-23 08:39] LABS: Calcium 8.4 mg/dL (8.4-10.2); Potassium 5.4 mmol/L (3.5-5.1)
[2021-04-23] MEDS: INSULIN ASPART (NovoLOG) 100 UNIT/ML VIAL SQ SCH ×4 (08:48→13:19)
[2021-04-23] MEDS: METOPROLOL SUCCINATE (ER) 100 MG TAB.ER.24H PO SCH (08:49)
[2021-04-23] MEDS: methylPREDNISolone SOD SUCCI 125 MG/2 ML VIAL IV SCH (08:49)
[2021-04-23] MEDS: ASCORBIC ACID 500 MG TAB PO SCH (08:49)
[2021-04-23] MEDS: CHOLECALCIFEROL 25 MCG (1000 IU) TABLET PO SCH (08:49)
[2021-04-23] MEDS: FOLIC ACID 1 MG TAB PO SCH (08:49)
[2021-04-23] MEDS: PANTOPRAZOLE 40 MG TABLET PO SCH (08:49)
[2021-04-23] MEDS: LEVOFLOXACIN 750 MG TAB PO SCH (08:49)
[2021-04-23] MEDS: ZINC SULFATE 220 MG CAP PO SCH (08:50)
[2021-04-23] MEDS: FUROSEMIDE 20 MG TAB PO SCH (08:50)
[2021-04-23] MEDS: ATORVASTATIN 80 MG TAB PO SCH (08:50)
[2021-04-23] MEDS: APIXABAN 2.5 MG TABLET PO SCH (08:50)
[2021-04-23 08:57] LABS: C Reactive Protein 0.8 mg/dL (<1.0)
[2021-04-23 10:15] VITALS: BP 109/70; PULSE 66; TEMP 96.6
[2021-04-23 11:53] LABS: Glucose,Whole Blood 184 mg/dL (75-99)
--- NOTE | 2021-04-23 12:59 | P.DS ---
Providers Date of admission: 04/07/21 16:12 Attending physician: Philipp Pinzon Consults: 04/07/21 16:14 Consult Physician Urgent Consulting Provider: Malachi Jenkins Consult Reason/Comments: elevated troponin, atrial fibrillation with RVR Do you want consulting provider notified?: Yes 04/07/21 18:21 Consult Physician Routine Consulting Provider: Boris Galarza Consult Reason/Comments: weakness Do you want consulting provider notified?: Yes 04/07/21 18:27 Consult Physician Routine Consulting Provider: Yumi Mclain Consult Reason/Comments: covid Do you want consulting provider notified?: Yes 04/20/21 06:46 Consult Physician Routine Consulting Provider: Shilo Cruz Consult Reason/Comments: urinary retention Do you want consulting provider notified?: Yes Primary care physician: Lorenzo Haynes [facility] Course: Diagnoses: Acute Covid infection with hypoxia, stabilized and improving A. fib with RVR with elevated troponin, cleared by transportation security screener for discharge Acute urinary retention, 400 mL per bladder scan, Jean catheter was placed. Flomax and started for 1-2 week Generalized weakness and fall, being followed by neurology who signs off. Postural hypotension also may be contributing Postural hypotension, gradually improving Subacute Covid 19 infection Ischemic cardiomyopathy status post AICD History of coronary artery disease status post stenting Diabetes mellitus Hypertension Hyperlipidemia Fall, without syncope Hospital course: This is a pleasant 80 years old male with multiple medical problems including diabetes mellitus, hypertension, hyperlipidemia, coronary artery disease status post stent placement, history of prostate cancer status post radiotherapy.. He was admitted with a fall and found to have A. fib and RVR with elevated troponin who is evaluated by transportation security screener and thought it is due to his A. fib and covid infection. Patient also with ischemic cardiomyopathy on AICD. Currently patient heart rate is controlled and He is currently on Eliquis 2.5 mg which his home medication, also he is on metoprolol 200 mg and Lasix 20 mg orally.. No further cardiopulmonary symptoms. Patient is alert and awake. No dyspnea or tachypnea, no coughing, no chest pain, chest x-ray showing bilateral infiltrates consistent with cough and pneumonia however he is saturating 92-94% on room air. He is already on vitamin C and D and zinc. And infectious disease were following the case closely. Neurology following the patient for his generalized weakness and fall and they already signed off with no further workup needed. repeat chest x-ray showed chronic changes with bilateral infiltrates similar to admission. Lavern DM is admitted for his coughing. Also patient with postural hypotension, patient has minimal symptoms and is on for rehab Yesterday patient had urinary retention today with bladder scan showing 400 mL, Jean catheter was found to be inserted with some trauma, urologist was consulted and Dr. cruz was able to place a Jean catheter, urine is slightly pink mostly secondary to his trauma. Vitals and hemoglobin is stable. Urologist recommended that the Jean catheter can be discontinued when medically indicated, however in view of his history of prostatic cancer restart him on Flomax with recommendation to follow up with urologist Dr. cruz with 2 weeks Patient was going to be discharged on 05/12 after taking his A. fib, however patient developed hypoxia secondary to bilateral Covid pneumonia, he was treated with multiple vitamin cocktail and with steroids. Patient showed interval improvement and his oxygen requirements came down from 4 L/m down to 2 L/m today. Patient breathing much easier 8, his coughing significantly improved. He denies chest pain. No diarrhea. Patient thinks he can go to rehab today for his generalized weakness Patient is going for ECF for subacute rehab Patient was cleared for discharge by all consultants Problems and management plan were discussed with the patient and he verbalized understanding and acceptance Patient was found stable and can be discharged home however he needs follow-up as an outpatient. Patient was instructed to follow up with PCP within one week and patient agrees Patient also was instructed to follow up with Dr. Cruz in 2 weeks for his Jean catheter management and urinary retention and he verbalized understanding and acceptance also patient might benefit from follow-up with transportation security screener Dr. Rodriguez as an outpatient and infectious disease Dr. Mclain in 1-2 weeks Physical exam Gen: patient is a AAOx3, no distress, Generally weak CVS: S1-S2, RRR, no murmur Lungs: B/L CTA, no wheezing Abdomen: soft, no distention, no tenderness, positive bowel sounds. Jean catheter is in place Extremity: no leg edema or induration Time spent more than 35 minutes Patient Condition at Discharge: Stable Plan - Discharge Summary Discharge Rx Participant: No New Discharge Prescriptions: New Zinc Sulfate [Orazinc] 220 mg PO DAILY cap Cholecalciferol [Vitamin D3 (25 Mcg = 1000 Iu)] 25 mcg PO DAILY tablet Tamsulosin [Flomax] 0.4 mg PO PC-SUPPER #7 cap.er.24h Folic Acid 1 mg PO DAILY@1200 tab INSULIN ASPART (NovoLOG) [NovoLOG (formulary)] 0 unit SQ ACHS vial Linagliptin [Tradjenta] 5 mg PO DAILY #30 tab Ascorbic Acid [Vitamin C] 500 mg PO DAILY tab Continue Ferrous Sulfate [Iron (65 MG Elemental)] 325 mg PO Q48H gemfibroziL [Lopid] 600 mg PO BID Rosuvastatin Calcium 40 mg PO DAILY Spironolactone 25 mg PO DAILY Ezetimibe 10 mg PO DAILY Pantoprazole Sodium [Protonix] 40 mg PO AC-BRKFST #30 tablet. Furosemide [Lasix] 20 mg PO DAILY #30 tab Apixaban [Eliquis] 2.5 mg PO BID Ferrous Sulfate [Iron (65 MG Elemental)] 650 mg PO Q48H Amoxicillin 500 mg PO TID INSULIN ASPART (NovoLOG) [NovoLOG (formulary)] 10 unit SQ AC-TID Metoprolol Succinate (ER) [Toprol XL] 200 mg PO DAILY Discontinued Empagliflozin/Linagliptin [Glyxambi 10 mg-5 mg Tablet] 1 tab PO DAILY lisinopriL [Zestril] 1.25 mg PO DAILY Discharge Medication List Ferrous Sulfate [Iron (65 MG Elemental)] 325 mg PO Q48H 08/17/15 [History] gemfibroziL [Lopid] 600 mg PO BID 02/27/17 [History] Ezetimibe 10 mg PO DAILY 11/04/19 [History] Rosuvastatin Calcium 40 mg PO DAILY 11/04/19 [History] Spironolactone 25 mg PO DAILY 11/04/19 [History] Furosemide [Lasix] 20 mg PO DAILY #30 tab 11/10/19 [Rx] Pantoprazole Sodium [Protonix] 40 mg PO AC-BRKFST #30 tablet. 11/10/19 [Rx] Apixaban [Eliquis] 2.5 mg PO BID 04/07/21 [History] Ferrous Sulfate [Iron (65 MG Elemental)] 650 mg PO Q48H 04/07/21 [History] Metoprolol Succinate (ER) [Toprol XL] 200 mg PO DAILY 04/07/21 [History] Ascorbic Acid [Vitamin C] 500 mg PO DAILY tab 04/11/21 [Rx] Cholecalciferol [Vitamin D3 (25 Mcg = 1000 Iu)] 25 mcg PO DAILY tablet 04/11/21 [Rx] Folic Acid 1 mg PO DAILY@1200 tab 04/11/21 [Rx] INSULIN ASPART (NovoLOG) [NovoLOG (formulary)] 0 unit SQ ACHS vial 04/11/21 [Rx] Linagliptin [Tradjenta] 5 mg PO DAILY #30 tab 04/11/21 [Rx] Tamsulosin [Flomax] 0.4 mg PO PC-SUPPER #7 cap.er.24h 04/11/21 [Rx] Zinc Sulfate [Orazinc] 220 mg PO DAILY cap 04/11/21 [Rx] INSULIN ASPART (NovoLOG) [NovoLOG (formulary)] 5 unit SQ AC-TID vial 04/23/21 [Rx] Insulin Detemir (Levemir) [Levemir] 20 unit SQ HS syr 04/23/21 [Rx] Levofloxacin [Levaquin] 750 mg PO DAILY #5 tab 04/23/21 [Rx] predniSONE 10 mg PO DIRECTED #18 tab 04/23/21 [Rx] Follow up Appointment(s)/Referral(s): Ivy Ventura MD [Primary Care Provider] - 1-2 days Matthew Coto MD [STAFF PHYSICIAN] - 1 Week Shilo Cruz MD [STAFF PHYSICIAN] - 2 Weeks (Urologist [facility] and spoke with Milena/office staff and she stated the office will call patient with follow up appointment date and time. ) Yumi Mclain MD [STAFF PHYSICIAN] - 1 Week (infectious disease , for your covid infection ) Patient Instructions/Handouts: Coronavirus Disease 2019 (COVID-19), A-fib (Atrial Fibrillation) (DC) Activity/Diet/Wound Care/Special Instructions: Heart healthy diet Activity is restricted until you see your doctor We recommend close monitoring of his hemoglobin Jean catheter was inserted by neurologist, Jean catheter can be discontinued when not medically necessary as per urologist Dr. cruz. Also recommended urological follow-up with Dr. cruz in 1-2 weeks Discharge Disposition: TRANSFER TO SNF/ECF
== END 2021-04-23 16:03 | DRG 177 ==
LOC: EC 13:37 → 3SCARD 16:12
PROVIDERS: ADMIT Hospitalist; ATTEND Hospitalist
PROC: 3E0333Z Introduction of Anti-inflammatory into Peripheral Vein, Percutaneous Approach (ICD-10-PCS; principal; 2021-04-11)
DX: U07.1 COVID-19 (principal); J12.82 Pneumonia due to coronavirus disease 2019; J96.01 Acute respiratory failure with hypoxia; N17.0 Acute kidney failure with tubular necrosis; E87.2 Acidosis; S22.31XA Fracture of one rib, right side, initial encounter for closed fracture; E87.1 Hypo-osmolality and hyponatremia; I50.22 Chronic systolic (congestive) heart failure; I25.10 Atherosclerotic heart disease of native coronary artery without angina pectoris; I48.0 Paroxysmal atrial fibrillation; R77.8 Other specified abnormalities of plasma proteins; N18.9 Chronic kidney disease, unspecified; E11.22 Type 2 diabetes mellitus with diabetic chronic kidney disease; I12.9 Hypertensive chronic kidney disease with stage 1 through stage 4 chronic kidney disease, or unspecified chronic kidney disease; I25.5 Ischemic cardiomyopathy; Z95.810 Presence of automatic (implantable) cardiac defibrillator; E78.5 Hyperlipidemia, unspecified; E87.5 Hyperkalemia; K21.9 Gastro-esophageal reflux disease without esophagitis; Z87.891 Personal history of nicotine dependence; R33.9 Retention of urine, unspecified; Z79.01 Long term (current) use of anticoagulants; Z79.4 Long term (current) use of insulin; Z82.49 Family history of ischemic heart disease and other diseases of the circulatory system; Z83.3 Family history of diabetes mellitus; I25.2 Old myocardial infarction; W01.0XXA Fall on same level from slipping, tripping and stumbling without subsequent striking against object, initial encounter; Z85.46 Personal history of malignant neoplasm of prostate; Z85.820 Personal history of malignant melanoma of skin; D72.810 Lymphocytopenia; I95.1 Orthostatic hypotension; Z95.5 Presence of coronary angioplasty implant and graft; Z92.3 Personal history of irradiation; Z95.2 Presence of prosthetic heart valve; I44.7 Left bundle-branch block, unspecified; E11.51 Type 2 diabetes mellitus with diabetic peripheral angiopathy without gangrene; E11.40 Type 2 diabetes mellitus with diabetic neuropathy, unspecified; J43.9 Emphysema, unspecified; Z79.899 Other long term (current) drug therapy
CPT/HCPCS: 36415; 70450; 71045; 71250; 80048; 80053; 81001; 82728; 83605; 83615; 83735; 83880; 84132; 84145; 84484; 85025; 85379; 85610; 85730; 86140; 87040; 87086; 87635; 93005; 93306; 94760; 96361; 96374; 99285

== ENCOUNTER 2021-07-20 18:13 | Inpatient (IN) | payer MEDICARE ==
[2021-07-20] MEDS ORDERED: SODIUM CHLORIDE 0.9% 1,000 ML IV STA ×4 (18:22→20:43)
--- NOTE | 2021-07-20 18:31 | ED ---
Fever HPI - General Stated Complaint: fever Time Seen by Provider: 07/20/21 18:13 Source: patient, EMS, RN notes reviewed, old records reviewed Mode of arrival: EMS - History of Present Illness Initial Comments: This is a 80-year-old male with a history of A. fib anemia diabetes heart disease a history of cold bed earlier this year who presents with sudden onset at around 12 noon today and not feeling well nausea chills. He was brought in by EMS he is found have a temperature 100.3 orally. Is also hypotensive with a systolic blood pressure in the 70s. This did improve to the 80s after approximately 350 mL normal saline. He never lost consciousness he just felt generally weak no cough or phlegm production he does have some a runny nose he states but no other constitutional symptoms at this time. MD Complaint: fever, weakness - Related Data Home Medications Medication Instructions Recorded Confirmed gemfibroziL [Lopid] 600 mg PO BID 02/27/17 07/20/21 Ezetimibe 10 mg PO DAILY 11/04/19 07/20/21 Rosuvastatin Calcium 40 mg PO DAILY 11/04/19 07/20/21 Spironolactone 25 mg PO DAILY 11/04/19 07/20/21 Apixaban [Eliquis] 5 mg PO DAILY 04/07/21 07/20/21 Ferrous Sulfate [Iron (65 MG 325 mg PO BID 04/07/21 07/20/21 Elemental)] Metoprolol Succinate (ER) [Toprol 200 mg PO DAILY 04/07/21 07/20/21 XL] Amiodarone HCl [Pacerone] 200 mg PO DAILY 07/20/21 07/20/21 Glyxambi (Unknown Dose) 1 tab PO DAILY 07/20/21 07/20/21 Insulin NPH Human Isophane 35 units SQ DAILY 07/20/21 07/20/21 [NovoLIN N] lisinopriL [Zestril] 2.5 mg PO DAILY 07/20/21 07/20/21 Previous Rx's Medication Instructions Recorded Furosemide [Lasix] 20 mg PO DAILY #30 tab 11/10/19 Pantoprazole Sodium [Protonix] 40 mg PO SHAKA #30 tablet. 11/10/19 Allergies Allergy/AdvReac Type Severity Reaction Status Date / Time bismuth subsalicylate Allergy Severe ABD PAIN, Verified 04/07/21 16:41 [From Pepto-Bismol] N/V molasses Allergy Severe Nausea & Uncoded 04/07/21 13:43 Vomiting Review of Systems ROS Statement: Those systems with pertinent positive or pertinent negative responses have been documented in the HPI. ROS Other: All systems not noted in ROS Statement are negative. Past Medical History Past Medical History: Cancer, Diabetes Mellitus, GERD/Reflux, GI Bleed, Hyperlipidemia, Hypertension, Myocardial Infarction ([place]), Prostate Disorder, Skin Disorder, Vascular Disorder Additional Past Medical History / Comment(s): HX PROSTATE CA with radiation and laser sx, & Basal Cell and Melanoma Skin - CURRENT AREAS DERMATOLOGY WATCHING SCALP, FACE,LT EAR; microcytic iron deficiency anemia, duodenitis Last Myocardial Infarction Date:: 1999 History of Any Multi-Drug Resistant Organisms: None Reported Past Surgical History: Adenoidectomy, AICD, Cardiac Valve Replacement, Heart Catheterization, Heart Catheterization With Stent, Tonsillectomy Additional Past Surgical History / Comment(s): 12/12/15 R fempop PTCA with stent X2.Other surgical hx 09/2015 TARV AT [facility] – [place]. HEART STENTS X3. Laser/Radiation Tx for Prosate CA. EXC Rt Upper Arm Melanoma, Basal Cell EXC FROM SCALP. PTCA 06/15/15, INDIRA 08/22/15. ABD AORTOGRAM W/ RUNOFF 12/10/15, EGD, colonoscopy with arteriovenous malformation. LEFT NECK BASAL CELL CA REMOVED Past Anesthesia/Blood Transfusion Reactions: No Reported Reaction Date of Last Stent Placement:: 1999 Type of Cardiac Device: AICD Device Placement Date:: 04/01/2016-[facility] [place]-(model [id number] pt) Past Psychological History: No Psychological Hx Reported Additional Psychological History / Comment(s): . Smoking Status: Former smoker Past Alcohol Use History: Rare Additional Past Alcohol Use History / Comment(s): quit smoking in 1999 started age 16, smoked 2 ppd Past Drug Use History: None Reported - Past Family History Father Family Medical History: Diabetes Mellitus, Myocardial Infarction ([place]) Additional Family Medical History / Comment(s): Father of a [place] at age 64yrs. Mother History Unknown: Yes Family Medical History: No Reported History Additional Family Medical History / Comment(s): Mother at age 68 yrs. General Exam - General Exam Comments Initial Comments: This a well-developed well-nourished awake alert oriented 3 male General appearance: alert, in no apparent distress Head exam: Present: atraumatic, normocephalic, normal inspection Eye exam: Present: normal appearance, PERRL, EOMI. Absent: scleral icterus, conjunctival injection, periorbital swelling ENT exam: Present: mucous membranes dry, other Neck exam: Present: normal inspection. Absent: tenderness, meningismus, lymphadenopathy Respiratory exam: Present: normal lung sounds bilaterally. Absent: respiratory distress, wheezes, rales, rhonchi, stridor Cardiovascular Exam: Present: regular rate, normal rhythm, normal heart sounds. Absent: systolic murmur, diastolic murmur, rubs, gallop, clicks GI/Abdominal exam: Present: soft, normal bowel sounds. Absent: distended, tenderness, guarding, rebound, rigid Extremities exam: Present: normal inspection, full ROM, normal capillary refill. Absent: tenderness, pedal edema, joint swelling, calf tenderness Back exam: Present: normal inspection Neurological exam: Present: alert, oriented X3, CN II-XII intact Psychiatric exam: Present: normal affect, normal mood Skin exam: Present: warm, dry, intact, normal color. Absent: rash Course Vital Signs 07/20/21 07/20/21 07/20/21 18:24 18:46 19:24 Temperature 100.7 F H Pulse Rate 59 L 76 82 Respiratory 20 20 18 Rate Blood Pressure 86/46 86/46 72/43 O2 Sat by Pulse 97 95 97 Oximetry 07/20/21 07/20/21 07/20/21 19:33 20:03 20:47 Temperature 98.5 F Pulse Rate 73 68 Respiratory 18 16 Rate Blood Pressure 88/49 92/48 O2 Sat by Pulse 99 97 Oximetry 07/20/21 21:03 Temperature Pulse Rate Respiratory Rate Blood Pressure 99/52 O2 Sat by Pulse Oximetry - Reevaluation(s) Reevaluation #1: 07/20/21 21:35 Reevaluation patient multiple occasions he maintained a low blood pressure in spite of IV hydration Procedures - Sepsis Sepsis Focused Exam #1 Time Sepsis Criteria Met: 19:20 Sepsis Focused Exam Date: 07/20/21 Sepsis Focused Exam Time: 19:20 Sepsis Focused Exam Complete: Yes Capillary Refill: < 2 Seconds: Fingers, Toes Peripheral Pulses: Weak: Radial (R), Radial (L), Dorsalis Pedis (R), Dorsalis Pedis (L) Skin Color: Normal for Patient Respiratory Exam: normal lung sounds Cardiovascular Exam: regular rate Sepsis Focused Exam #2 Time Sepsis Criteria Met: 17:20 Sepsis Focused Exam Date: 07/20/21 Sepsis Focused Exam Time: 21:30 Sepsis Focused Exam Complete: Yes Vital Signs & RN Notes Reviewed: Yes Capillary Refill: < 2 Seconds: Fingers, Toes Peripheral Pulses: Normal: Radial (R), Radial (L), Dorsalis Pedis (R), Dorsalis Pedis (L) Skin Color: Normal for Patient Respiratory Exam: normal lung sounds Cardiovascular Exam: regular rate (Demonstrate improvement after IV fluids and IV antibiotics.) Medical Decision Making - Medical Decision Making Patient did demonstrate evidence of sepsis with fever hypotension requiring mul tiple fluid boluses. Patient did finally respond after IV fluids and IV antibiotics. He is feeling better. Due to the findings he will be admitted. I do suspect a pneumonitis. I did discuss case Dr. Dejesus the patient will be admitted with IV antibiotics IV fluids continuing repeat x-ray in the morning. As well as lab work. - Lab Data Result diagrams: 07/20/21 18:30 07/20/21 18:30 Lab Results 07/20/21 07/20/21 07/20/21 Range/Units 18:30 18:30 18:30 WBC 16.4 H (3.8-10.6) k/uL RBC 3.95 L (4.30-5.90) m/uL Hgb 11.6 L (13.0-17.5) gm/dL Hct 34.8 L (39.0-53.0) % MCV 88.1 (80.0-100.0) fL MCH 29.3 (25.0-35.0) pg MCHC 33.3 (31.0-37.0) g/dL RDW 17.3 H (11.5-15.5) % Plt Count 186 (150-450) k/uL MPV 10.2 Neutrophils % 92 % Lymphocytes % 2 % Monocytes % 4 % Eosinophils % 1 % Basophils % 0 % Neutrophils # 15.1 H (1.3-7.7) k/uL Lymphocytes # 0.4 L (1.0-4.8) k/uL Monocytes # 0.7 (0-1.0) k/uL Eosinophils # 0.2 (0-0.7) k/uL Basophils # 0.0 (0-0.2) k/uL Anisocytosis Slight Sodium 129 L (137-145) mmol/L Potassium 4.5 (3.5-5.1) mmol/L Chloride 104 (98-107) mmol/L Carbon Dioxide 15 L (22-30) mmol/L Anion Gap 10 mmol/L BUN 42 H (9-20) mg/dL Creatinine 1.56 H (0.66-1.25) mg/dL Est GFR (CKD-EPI)AfAm 48 (>60 ml/min/1.73 sqM) Est GFR (CKD-EPI)NonAf 41 (>60 ml/min/1.73 sqM) Glucose 260 H (74-99) mg/dL Lactic Ac Sepsis Rflx Plasma Lactic Acid Nikolay 2.3 H* (0.7-2.0) mmol/L Calcium 8.7 (8.4-10.2) mg/dL Magnesium 2.1 (1.6-2.3) mg/dL Total Bilirubin 0.4 (0.2-1.3) mg/dL AST 27 (17-59) U/L ALT 11 (4-49) U/L Alkaline Phosphatase 52 (38-126) U/L Creatine Kinase 71 (55-170) U/L Troponin I (0.000-0.034) ng/mL Total Protein 6.4 (6.3-8.2) g/dL Albumin 3.7 (3.5-5.0) g/dL Influenza Type A (PCR) (Not Detectd) Influenza Type B (PCR) (Not Detectd) RSV (PCR) (Not Detectd) SARS-CoV-2 (PCR) (Not Detectd) 07/20/21 07/20/21 07/20/21 Range/Units 18:30 19:08 19:17 WBC (3.8-10.6) k/uL RBC (4.30-5.90) m/uL Hgb (13.0-17.5) gm/dL Hct (39.0-53.0) % MCV (80.0-100.0) fL MCH (25.0-35.0) pg MCHC (31.0-37.0) g/dL RDW (11.5-15.5) % Plt Count (150-450) k/uL MPV Neutrophils % % Lymphocytes % % Monocytes % % Eosinophils % % Basophils % % Neutrophils # (1.3-7.7) k/uL Lymphocytes # (1.0-4.8) k/uL Monocytes # (0-1.0) k/uL Eosinophils # (0-0.7) k/uL Basophils # (0-0.2) k/uL Anisocytosis Sodium (137-145) mmol/L Potassium (3.5-5.1) mmol/L Chloride (98-107) mmol/L Carbon Dioxide (22-30) mmol/L Anion Gap mmol/L BUN (9-20) mg/dL Creatinine (0.66-1.25) mg/dL Est GFR (CKD-EPI)AfAm (>60 ml/min/1.73 sqM) Est GFR (CKD-EPI)NonAf (>60 ml/min/1.73 sqM) Glucose (74-99) mg/dL Lactic Ac Sepsis Rflx Y Plasma Lactic Acid Nikolay (0.7-2.0) mmol/L Calcium (8.4-10.2) mg/dL Magnesium (1.6-2.3) mg/dL Total Bilirubin (0.2-1.3) mg/dL AST (17-59) U/L ALT (4-49) U/L Alkaline Phosphatase (38-126) U/L Creatine Kinase (55-170) U/L Troponin I 0.018 (0.000-0.034) ng/mL Total Protein (6.3-8.2) g/dL Albumin (3.5-5.0) g/dL Influenza Type A (PCR) Not Detected (Not Detectd) Influenza Type B (PCR) Not Detected (Not Detectd) RSV (PCR) Not Detected (Not Detectd) SARS-CoV-2 (PCR) Not Detected (Not Detectd) - EKG Data -: EKG Interpreted by Me EKG Comments: Sinus rhythm 78 NV interval 1:30 QRS duration 170 QT/QTC 466/531 minutes. Exodeviation nonspecific interventricular block evidence of old inferior changes - Radiology Data Radiology results: report reviewed (Imaging reviewed evidence of clearing of earlier evidence of pneumonia.), image reviewed Critical Care Time Critical Care Time: Yes Total Critical Care Time: 47 Critical Care Time: Critical care time including initial presentation with history physical labs x- rays multiple reevaluation patient responsive therapy bubbles discussion with the patient family discuss with the beta physician review of old charting documentation the above and admission orders. Disposition Clinical Impression: Sepsis associated hypotension, Pneumonitis, Febrile illness, acute, Acute kidney injury Disposition: ADMITTED IP TO THIS HOSP Condition: Fair Referrals: Ivy Ventura MD [Primary Care Provider] - 1-2 days
[2021-07-20 19:03] LABS: Albumin 3.7 g/dL (3.5-5.0); Anisocytosis Slight; Basophils % (A) 0 %; Calcium 8.7 mg/dL (8.4-10.2); Eosinophils # (A) 0.2 k/uL (0-0.7); Eosinophils % (A) 1 %; HCT 34.8 % (39.0-53.0); HGB 11.6 gm/dL (13.0-17.5); Lymphocytes # (A) 0.4 k/uL (1.0-4.8); Lymphocytes % (A) 2 %; MCH 29.3 pg (25.0-35.0); MCHC 33.3 g/dL (31.0-37.0); MCV 88.1 fL (80.0-100.0); Magnesium 2.1 mg/dL (1.6-2.3); Mean Platelet Volume 10.2; Monocytes # (A) 0.7 k/uL (0-1.0); Monocytes % (A) 4 %; Neutrophils # (A) 15.1 k/uL (1.3-7.7); Neutrophils % (A) 92 %; Platelet Count 186 k/uL (150-450); Potassium 4.5 mmol/L (3.5-5.1); RBC 3.95 m/uL (4.30-5.90); RDW 17.3 % (11.5-15.5); Total Bilirubin 0.4 mg/dL (0.2-1.3); Total Protein 6.4 g/dL (6.3-8.2); WBC 16.4 k/uL (3.8-10.6)
--- NOTE | 2021-07-20 19:08 | XR ---
EXAMINATION TYPE: XR chest 2V DATE OF EXAM: 07/20/2021 COMPARISON: 04/23/2021 HISTORY: Fever. Chills. Nausea. TECHNIQUE: 2 views FINDINGS: There is left axillary pacemaker. Lungs are clear of consolidation. There are no hilar mass es. Costophrenic angles are clear. There is aortic valve stent. Thoracic aorta is atheromatous. IMPRESSION: No active cardiopulmonary disease. There is clearing of the bilateral extensive pulmonary infiltrates compared to old exam.
[2021-07-20] MEDS ORDERED: cefTRIAXone IN SWFI 1,000 MG/10 ML SYRINGE IVP STA (19:24)
[2021-07-20] MEDS ORDERED: PNEUMONIA PROTOCOL UTILIZED 1 EACH MISC PO PRN (21:48)
[2021-07-20] MEDS ORDERED: AZITHROMYCIN 500 MG in SODIUM CHLORIDE 0.9% 250 ML IVPB STA (21:48)
[2021-07-20 23:58] LABS: Appearance,Urine Clear (Clear); Bilirubin,Urine Negative (Negative); Blood,Urine Negative (Negative); Color,Urine Light Yellow; Glucose,Urine (UA) 4+ (Negative); Ketones,Urine Negative (Negative); Leukocyte Esterase,Urine Negative (Negative); Nitrite,Urine Negative (Negative); Protein,Urine Negative (Negative); Specific Gravity,Urine 1.015 (1.001-1.035); Urobilinogen,Urine <2.0 mg/dL (<2.0)
[2021-07-21 05:49] LABS: Glucose,Whole Blood 159 mg/dL (75-99)
[2021-07-21] MEDS: INSULIN ASPART (NovoLOG) 100 UNIT/ML VIAL SQ SCH ×4 (06:34→21:01)
[2021-07-21] MEDS: PANTOPRAZOLE 40 MG TABLET PO SCH (06:34)
--- NOTE | 2021-07-21 07:35 | XR ---
EXAMINATION TYPE: XR chest 2V DATE OF EXAM: 07/21/2021 COMPARISON: Chest x-ray 07/20/2021, chest CT 04/07/2021 HISTORY: Pneumonia TECHNIQUE: Frontal and lateral views of the chest are obtained. FINDINGS: Findings are similar to prior exam. Pacemaker is unchanged. No evident pneumothorax or ple ural effusion. Cardiac mediastinal silhouette is stable. Aorta is dense. There is eventration change of the right hemidiaphragm. Minimal strand-like densities are present within the lungs. IMPRESSION: Findings may be due to sequela of previous pneumonia, there is underlying emphysema
[2021-07-21] MEDS ORDERED: INSULIN NPH 300 UNIT/3 ML VIAL SQ SCH ×2 (09:00→16:00)
[2021-07-21] MEDS: METOPROLOL SUCCINATE (ER) 100 MG TAB.ER.24H PO SCH (09:10)
[2021-07-21] MEDS: APIXABAN 5 MG TAB PO SCH (09:10)
[2021-07-21] MEDS: FERROUS SULFATE 325 MG TAB PO SCH ×2 (09:10→20:50)
[2021-07-21] MEDS: SPIRONOLACTONE 25 MG TAB PO SCH (09:11)
[2021-07-21] MEDS: AMIODARONE 200 MG TAB PO SCH (09:11)
[2021-07-21] MEDS: ATORVASTATIN 80 MG TAB PO SCH (09:11)
[2021-07-21] MEDS: EZETIMIBE 10 MG TAB PO SCH (09:11)
[2021-07-21] MEDS: FENOFIBRATE 160 MG TAB PO SCH (09:15)
[2021-07-21 10:24] LABS: Anisocytosis Slight; Basophils % (A) 0 %; Eosinophils # (A) 0.1 k/uL (0-0.7); Eosinophils % (A) 1 %; HCT 31.9 % (39.0-53.0); HGB 10.6 gm/dL (13.0-17.5); Lymphocytes # (A) 0.4 k/uL (1.0-4.8); Lymphocytes % (A) 3 %; MCH 29.8 pg (25.0-35.0); MCHC 33.2 g/dL (31.0-37.0); MCV 89.6 fL (80.0-100.0); Mean Platelet Volume 10.7; Monocytes # (A) 0.4 k/uL (0-1.0); Monocytes % (A) 3 %; Neutrophils # (A) 11.2 k/uL (1.3-7.7); Neutrophils % (A) 91 %; Platelet Count 154 k/uL (150-450); RBC 3.56 m/uL (4.30-5.90); RDW 17.2 % (11.5-15.5); WBC 12.3 k/uL (3.8-10.6)
[2021-07-21 10:40] LABS: Calcium 8.4 mg/dL (8.4-10.2); Potassium 4.3 mmol/L (3.5-5.1)
[2021-07-21 11:49] LABS: Glucose,Whole Blood 185 mg/dL (75-99)
[2021-07-21] MEDS: INSULIN NPH 300 UNIT/3 ML VIAL SQ SCH ×2 (12:44→16:44)
[2021-07-21 16:20] LABS: Glucose,Whole Blood 224 mg/dL (75-99)
--- NOTE | 2021-07-21 16:50 | P.HPIM ---
History of Present Illness H&P Date: 07/21/21 Chief Complaint: Fever Patient is a 80-year-old male with a known history of atrial fibrillation on anticoagulation with Eliquis, hypertension, hyperlipidemia, diabetes type 2, history of RI, prostate cancer status post radiation and laser treatment, microcytic anemia, history of AICD placement and cardiac valve replacement, coronary coronary artery disease and stent placement and previous history of smoking presents to ER with the complaints of fever. Patient states that he woke up in the bed and felt very cold and could not get out of bed and not feeling well. Sudden onset of symptoms around known yesterday. Patient was brought to ER by EMS. Patient was found to be febrile with T-max 100.3. Patient was also hypotensive with blood pressure in 70s. Patient was given small fluid bolus while coming to ER. Otherwise patient feels very weak and denied any loss of consciousness. No complains of cough is from production. This lightheaded. No commerce of chest pain. No nausea vomiting or abdominal pain or diarrhea. Patient was given fluid boluses in the ER. Laboratory data showed RBC 16.4, hemoglobin 11.6 and platelets 186 Sodium 120 pressure 4.5 chloride 104 bicarb is 15 BUN 42 creatinine 1.56 Lactic acid 2.3 blood sugar 260 And liver exams are not elevated Influenza, COVID-19 PCR not detected. Urinalysis is negative for infection EKG showed normal sinus rhythm Chest x-ray showed no active cardiopulmonary disease. There is clearing of the bilateral extensive pulmonary infiltrates compared to old exam. Neck and EKG showed normal sinus rhythm Review of Systems Constitutional: Patient does have fever. No chills. Generalized weakness and fatigue and lethargy.. Abdomen: Patient denied nausea vomiting and diarrhea and abdominal pain. Cardiovascular: Patient denies any chest pain or short of breath no palpitations. Respiratory: patient denied any cough is from production. No shortness of br eath Neurologic: Patient denied any numbness or tingling headache. Musculoskeletal: Patient denies any complaints of joint swelling or deformity. Skin: Negative Psychiatric: Negative Endocrine: No heat or cold intolerance. No recent weight gain. Genitourinary: No dysuria or hematuria. All other 14 point ROS negative except the above Past Medical History Past Medical History: Cancer, Diabetes Mellitus, GERD/Reflux, GI Bleed, Hyperlipidemia, Hypertension, Myocardial Infarction (RI), Prostate Disorder, Skin Disorder, Vascular Disorder Additional Past Medical History / Comment(s): HX PROSTATE CA with radiation and laser sx, & Basal Cell and Melanoma microcytic iron deficiency anemia, duodenitis Last Myocardial Infarction Date:: 1999 History of Any Multi-Drug Resistant Organisms: None Reported Past Surgical History: Adenoidectomy, AICD, Cardiac Valve Replacement, Heart Catheterization, Heart Catheterization With Stent, Tonsillectomy Additional Past Surgical History / Comment(s): 12/12/15 R fempop PTCA with stent X2.Other surgical [place] [facility] [place]. Laser/Radiation Tx for Prosate CA. EXC Rt Upper Arm Melanoma, Basal Cell EXC FROM SCALP. PTCA 06/15/15, INDIRA 08/22/15. ABD AORTOGRAM W/ RUNOFF 12/10/15, EGD, colonoscopy with arteriovenous malformation. LEFT NECK BASAL CELL CA REMOVED Past Anesthesia/Blood Transfusion Reactions: No Reported Reaction Date of Last Stent Placement:: 1999 Type of Cardiac Device: AICD Device Placement Date:: 04/01/2016-[facility] [place]-(model [id number] pt) Past Psychological History: No Psychological Hx Reported Additional Psychological History / Comment(s): . Smoking Status: Former smoker Past Alcohol Use History: Rare Additional Past Alcohol Use History / Comment(s): quit smoking in 1999 started age 16, smoked 2 ppd Past Drug Use History: None Reported - Past Family History Father Family Medical History: Diabetes Mellitus, Myocardial Infarction (RI) Additional Family Medical History / Comment(s): Father of a RI at age 64yrs. Mother History Unknown: Yes Family Medical History: No Reported History Additional Family Medical History / Comment(s): Mother at age 68 yrs. Medications and Allergies Home Medications Medication Instructions Recorded Confirmed Type gemfibroziL [Lopid] 600 mg PO BID 02/27/17 07/20/21 History Ezetimibe 10 mg PO DAILY 11/04/19 07/20/21 History Rosuvastatin Calcium 40 mg PO DAILY 11/04/19 07/20/21 History Spironolactone 25 mg PO DAILY 11/04/19 07/20/21 History Furosemide [Lasix] 20 mg PO DAILY #30 tab 11/10/19 07/20/21 Rx Pantoprazole Sodium [Protonix] 40 mg PO -BRKFST #30 tablet.dr 11/10/19 07/20/21 Rx Apixaban [Eliquis] 5 mg PO DAILY 04/07/21 07/20/21 History Ferrous Sulfate [Iron (65 MG 325 mg PO BID 04/07/21 07/20/21 History Elemental)] Metoprolol Succinate (ER) [Toprol 200 mg PO DAILY 04/07/21 07/20/21 History XL] Amiodarone HCl [Pacerone] 200 mg PO DAILY 07/20/21 07/20/21 History Insulin NPH Human Isophane 35 units SQ DAILY 07/20/21 07/20/21 History [NovoLIN N] lisinopriL [Zestril] 2.5 mg PO DAILY 07/20/21 07/20/21 History Empagliflozin/Linagliptin 1 tab PO DAILY 07/21/21 07/21/21 History [Glyxambi 25 mg-5 mg Tablet] Allergies Allergy/AdvReac Type Severity Reaction Status Date / Time bismuth subsalicylate Allergy Severe ABD PAIN, Verified 04/07/21 16:41 [From Pepto-Bismol] N/V molasses Allergy Severe Nausea & Uncoded 04/07/21 13:43 Vomiting Physical Exam Vitals: Vital Signs Temp Pulse Pulse Resp BP BP Pulse Ox 07/21/21 06:38 98.5 F 07/21/21 04:00 99.2 F 78 18 108/57 98 07/21/21 00:00 97.6 F 66 18 93/51 97 07/20/21 22:40 98.0 F 69 18 92/53 97 07/20/21 22:31 69 16 109/49 97 07/20/21 21:03 99/52 07/20/21 20:47 68 16 92/48 97 07/20/21 20:03 73 18 88/49 99 07/20/21 19:33 98.5 F 07/20/21 19:24 82 18 72/43 97 07/20/21 18:46 76 20 86/46 95 07/20/21 18:24 100.7 F H 59 L 20 86/46 97 Intake and Output 07/20/21 07/21/21 07/21/21 22:59 06:59 14:59 Intake Total 250 650 240 Output Total 700 325 Balance 250 -50 -85 Intake: Intake, IV Titration 250 650 Amount Azithromycin 500 mg In 250 Sodium Chloride 0.9% 250 ml @ 250 mls/hr IVPB ONCE STA Rx#:[id number] Sodium Chloride 0.9% 1, 650 000 ml @ 130 mls/hr IV . Q7H42M STA Rx#:[id number] Oral 240 Output: Urine 700 325 Other: # Voids 1 # Bowel Movements 1 Weight 93 kg 91.9 kg PHYSICAL EXAMINATION: Patient is lying in the bed comfortably, no acute distress, awake alert and oriented.. HEENT: Normocephalic. Neck is supple. Pupils reactive. Nostrils clear. Oral cavity is moist. Neck reveals no JVD, carotid bruits, or thyromegaly. CHEST EXAMINATION: Trachea is central. Symmetrical expansion. Bibasilar dementia sounds. Lung roman clear to auscultation and percussion. CARDIAC: Normal S1, S2 with no gallops. No murmurs ABDOMEN: Soft. Bowel sounds normal. No organomegaly. No abdominal bruits. Extremities: reveal no edema. No clubbing or cyanosis Neurologically awake, alert, oriented x3 with well-coordinated movements. No focal deficits noted Skin: No rash or skin lesions. Psychiatric: Coperative. Nonsuicidal Musculoskeletal: No joint swelling or deformity. Normal range of motion. Results CBC & Chem 7: 07/21/21 10:09 07/21/21 10:09 Labs: Abnormal Lab Results - Last 24 Hours (Table) 07/20/21 07/20/21 07/20/21 Range/Units 18:30 18:30 18:30 WBC 16.4 H (3.8-10.6) k/uL RBC 3.95 L (4.30-5.90) m/uL Hgb 11.6 L (13.0-17.5) gm/dL Hct 34.8 L (39.0-53.0) % RDW 17.3 H (11.5-15.5) % Neutrophils # 15.1 H (1.3-7.7) k/uL Lymphocytes # 0.4 L (1.0-4.8) k/uL Sodium 129 L (137-145) mmol/L Carbon Dioxide 15 L (22-30) mmol/L BUN 42 H (9-20) mg/dL Creatinine 1.56 H (0.66-1.25) mg/dL Glucose 260 H (74-99) mg/dL POC Glucose (mg/dL) (75-99) mg/dL Plasma Lactic Acid Nikolay 2.3 H* (0.7-2.0) mmol/L Urine Glucose (UA) (Negative) 07/20/21 07/20/21 07/21/21 Range/Units 22:15 23:39 05:48 WBC (3.8-10.6) k/uL RBC (4.30-5.90) m/uL Hgb (13.0-17.5) gm/dL Hct (39.0-53.0) % RDW (11.5-15.5) % Neutrophils # (1.3-7.7) k/uL Lymphocytes # (1.0-4.8) k/uL Sodium (137-145) mmol/L Carbon Dioxide (22-30) mmol/L BUN (9-20) mg/dL Creatinine (0.66-1.25) mg/dL Glucose (74-99) mg/dL POC Glucose (mg/dL) 159 H (75-99) mg/dL Plasma Lactic Acid Nikolay 2.2 H* (0.7-2.0) mmol/L Urine Glucose (UA) 4+ H (Negative) Microbiology - Last 24 Hours (Table) 07/20/21 19:00 Blood Culture - Final Blood 07/20/21 18:40 Blood Culture - Final Blood Thrombosis Risk Factor Assmnt - DVT/VTE Prophylaxis DVT/VTE Prophylaxis: Pharmacologic Prophylaxis ordered - Choose All That Apply Any of the Below Risk Factors Present?: Yes Each Factor Represents 1 point: Sepsis (< 1month) Each Risk Factor Represents 3 Points: Age 75 years or older Thrombosis Risk Factor Assessment Total Risk Factor Score: 4 Thrombosis Risk Factor Assessment Level: Moderate Risk Assessment and Plan Assessment: Generalized weakness and fatigue secondary to dehydration and volume depletion Hypovolemic shock possible septic shock requiring multiple fluid boluses in the ER Bilateral pneumonia Acute kidney injury likely prerenal Hyperglycemia with uncontrolled diabetes type 2 Lactic acidosis Hypertension Hyperlipidemia History of GI bleed History of RI History of cardiac valve replacement History of AICD placement Paroxysmal atrial fibrillation on anticoagulation with Eliquis Andrei artery disease with history of stent placement Procedures history of smoking DVT prophylaxis. Plan: Patient be continued on telemetry monitoring. Blood pressure improved with fluid boluses in the ER. Continue with antibiotics and cough ceftriaxone and az ithromycin. Current with home medications including metoprolol, Eliquis and amiodarone and statins. Follow-up culture reports. Infectious disease consult and continue to follow closely. Encourage oral intake.. Prognosis is guarded at this time.
[2021-07-21 20:52] LABS: Glucose,Whole Blood 232 mg/dL (75-99)
[2021-07-21] MEDS ORDERED: AZITHROMYCIN 500 MG TAB PO SCH (21:00)
--- NOTE | 2021-07-21 23:36 | P.CONS ---
History of Present Illness - Reason for Consult Consult date: 07/21/21 pneumonitis/bacteremia Requesting physician: Domenic Dejesus - Chief Complaint weakenss x few days - History of Present Illness History of present illness : Patient is 80-year-old male who was brought into the ER for not feeling well nausea and chills in this patient was noticed to have a fever 100.3 F patient was hypotensive with a systolic blood pressure of 70 patient received a fluid bolus was brought to the hospital patient on arrival to the ER did have fever 100.7 F no tachycardia or hypoxemia he did have white count of 12.3 kidney function was normal urine was negative charles PCR was negative patient did have a chest x-ray no active cardiopulmonary disease repeat x-ray this morning findings may be sequela of previous pneumonia underlying emphysema patient did have blood cultures drawn which came back positive for Streptococcus species that has prompted this infectious disease consultation patient currently denies having any headache or URI symptoms denies having any chest pain or shortness of breath occasional cough no nausea no vomiting no abdominal pain no diarrhea Review of system: CONSTITUTIONAL: Positive for weakness along with the fever. EYES: No complaint. ENT: No complaint. RESPIRATORY: As per history of present illness CARDIOVASCULAR: No complaint. GENITOURINARY: No complaint. GASTROINTESTINAL: No complaint. MUSCULOSKELETAL: No complaint. INTEGUMENTARY: No complaint. PSYCHOLOGIC: No complaint. ENDOCRINE: No complaint. NEUROLOGIC: No complaint. Past medical history : Reviewed, documented below Past surgical history : Reviewed, documented below Social history: Reviewed, documented below Medications: Reviewed, as documented below GENERAL DESCRIPTION: Elderly male lying in bed, no distress. No tachypnea or accessory muscle of respiration use. HEENT: Shows Pallor , no scleral icterus. Oral mucous membrane is dry. NECK: Trachea central, no thyromegaly. LUNGS: Unlabored breathing. Clear to auscultation anteriorly. No wheeze or crackle. HEART: S1, S2, regular rate and rhythm. ABDOMEN: Soft, no tenderness , guarding or rigidity EXTREMITIES: No edema of feet. SKIN: No rash, no masses palpable. NEUROLOGICAL: The patient is awake, alert, oriented x3, mood and affect normal. LABS AND RADIOLOGY: Reviewed results see below Assessment : 1-patient presented to hospital with weakness in this patient who d o have a fever elevated white count now with evidence of streptococcal bacteremia however initial work-up has been negative has a chest x-ray did not show any evidence of pneumonia and urine has been negative with concern for possible endovascular source, we will need to wait for the ID of this pathogen to direct further diagnostic work-up Plan: 1-blood cultures will be repeated document clearance of bacteremia 2-Rocephin 2 g daily to continue 3-check an echocardiogram We will follow on clinical condition and cultures to further adjust medication if needed Thank you for this consultation we will follow the patient along with you Past Medical History Past Medical History: Cancer, Diabetes Mellitus, GERD/Reflux, GI Bleed, Hyperlipidemia, Hypertension, Myocardial Infarction (ID), Prostate Disorder, Skin Disorder, Vascular Disorder Additional Past Medical History / Comment(s): HX PROSTATE CA with radiation and laser sx, & Basal Cell and Melanoma microcytic iron deficiency anemia, duodenitis Last Myocardial Infarction Date:: 1999 History of Any Multi-Drug Resistant Organisms: None Reported Past Surgical History: Adenoidectomy, AICD, Cardiac Valve Replacement, Heart Catheterization, Heart Catheterization With Stent, Tonsillectomy Additional Past Surgical History / Comment(s): 12/12/15 R fempop PTCA with stent X2.Other surgical hx 09/2015 [place] [facility] [place] HEART STENTS X3. Laser/Radiation Tx for Prosate CA. EXC Rt Upper Arm Melanoma, Basal Cell EXC FROM SCALP. PTCA 06/15/15, INDIRA 08/22/15. ABD AORTOGRAM W/ RUNOFF 12/10/15, EGD, colonoscopy with arteriovenous malformation. LEFT NECK BASAL CELL CA REMOVED Past Anesthesia/Blood Transfusion Reactions: No Reported Reaction Date of Last Stent Placement:: 1999 Type of Cardiac Device: AICD Device Placement Date:: 04/01/2016-[facility] [place]-(model [id number] pt) Past Psychological History: No Psychological Hx Reported Additional Psychological History / Comment(s): . Smoking Status: Former smoker Past Alcohol Use History: Rare Additional Past Alcohol Use History / Comment(s): quit smoking in 1999 started age 16, smoked 2 ppd Past Drug Use History: None Reported - Past Family History Father Family Medical History: Diabetes Mellitus, Myocardial Infarction (ID) Additional Family Medical History / Comment(s): Father of a ID at age 64yrs . Mother History Unknown: Yes Family Medical History: No Reported History Additional Family Medical History / Comment(s): Mother at age 68 yrs. Medications and Allergies Home Medications Medication Instructions Recorded Confirmed Type gemfibroziL [Lopid] 600 mg PO BID 02/27/17 07/20/21 History Ezetimibe 10 mg PO DAILY 11/04/19 07/20/21 History Rosuvastatin Calcium 40 mg PO DAILY 11/04/19 07/20/21 History Spironolactone 25 mg PO DAILY 11/04/19 07/20/21 History Furosemide [Lasix] 20 mg PO DAILY #30 tab 11/10/19 07/20/21 Rx Pantoprazole Sodium [Protonix] 40 mg PO AC-BRKFST #30 tablet.dr 11/10/19 07/20/21 Rx Apixaban [Eliquis] 5 mg PO DAILY 04/07/21 07/20/21 History Ferrous Sulfate [Iron (65 MG 325 mg PO BID 04/07/21 07/20/21 History Elemental)] Metoprolol Succinate (ER) [Toprol 200 mg PO DAILY 04/07/21 07/20/21 History XL] Amiodarone HCl [Pacerone] 200 mg PO DAILY 07/20/21 07/20/21 History Insulin NPH Human Isophane 35 units SQ DAILY 07/20/21 07/20/21 History [NovoLIN N] lisinopriL [Zestril] 2.5 mg PO DAILY 07/20/21 07/20/21 History Empagliflozin/Linagliptin 1 tab PO DAILY 07/21/21 07/21/21 History [Glyxambi 25 mg-5 mg Tablet] Allergies Allergy/AdvReac Type Severity Reaction Status Date / Time bismuth subsalicylate Allergy Severe ABD PAIN, Verified 04/07/21 16:41 [From Pepto-Bismol] N/V molasses Allergy Severe Nausea & Uncoded 04/07/21 13:43 Vomiting Physical Exam Vitals: Vital Signs Temp Pulse Pulse Resp BP BP Pulse Ox 07/21/21 12:00 97.9 F 20 107/53 95 07/21/21 08:00 98.0 F 20 106/53 95 07/21/21 06:38 98.5 F 07/21/21 04:00 99.2 F 78 18 108/57 98 07/21/21 00:00 97.6 F 66 18 93/51 97 08/28/21 22:40 98.0 F 69 18 92/53 97 07/20/21 22:31 69 16 109/49 97 07/20/21 21:03 99/52 07/20/21 20:47 68 16 92/48 97 07/20/21 20:03 73 18 88/49 99 07/20/21 19:33 98.5 F 07/20/21 19:24 82 18 72/43 97 07/20/21 18:46 76 20 86/46 95 07/20/21 18:24 100.7 F H 59 L 20 86/46 97 Intake and Output 07/20/21 07/21/21 07/21/21 22:59 06:59 14:59 Intake Total 565 321 2822 Output Total 700 850 Balance 250 -50 170 Intake: Intake, IV Titration 250 650 Amount Azithromycin 500 mg In 250 Sodium Chloride 0.9% 250 ml @ 250 mls/hr IVPB ONCE STA Rx#:[id number] Sodium Chloride 0.9% 1, 650 000 ml @ 130 mls/hr IV . Q7H42M STA Rx#:[id number] Oral 1020 Output: Urine 700 850 Other: # Voids 1 # Bowel Movements 1 Weight 93 kg 91.9 kg Results CBC & Chem 7: 07/21/21 10:09 07/21/21 10:09 Labs: Abnormal Lab Results - Last 24 Hours (Table) 07/20/21 07/20/21 07/20/21 Range/Units 18:30 18:30 18:30 WBC 16.4 H (3.8-10.6) k/uL RBC 3.95 L (4.30-5.90) m/uL Hgb 11.6 L (13.0-17.5) gm/dL Hct 34.8 L (39.0-53.0) % RDW 17.3 H (11.5-15.5) % Neutrophils # 15.1 H (1.3-7.7) k/uL Lymphocytes # 0.4 L (1.0-4.8) k/uL Sodium 129 L (137-145) mmol/L Chloride (98-107) mmol/L Carbon Dioxide 15 L (22-30) mmol/L BUN 42 H (9-20) mg/dL Creatinine 1.56 H (0.66-1.25) mg/dL Glucose 260 H (74-99) mg/dL POC Glucose (mg/dL) (75-99) mg/dL Plasma Lactic Acid Nikolay 2.3 H* (0.7-2.0) mmol/L Urine Glucose (UA) (Negative) 07/20/21 07/20/21 07/21/21 Range/Units 22:15 23:39 05:48 WBC (3.8-10.6) k/uL RBC (4.30-5.90) m/uL Hgb (13.0-17.5) gm/dL Hct (39.0-53.0) % RDW (11.5-15.5) % Neutrophils # (1.3-7.7) k/uL Lymphocytes # (1.0-4.8) k/uL Sodium (137-145) mmol/L Chloride (98-107) mmol/L Carbon Dioxide (22-30) mmol/L BUN (9-20) mg/dL Creatinine (0.66-1.25) mg/dL Glucose (74-99) mg/dL POC Glucose (mg/dL) 159 H (75-99) mg/dL Plasma Lactic Acid Nikolay 2.2 H* (0.7-2.0) mmol/L Urine Glucose (UA) 4+ H (Negative) 07/21/21 07/21/21 07/21/21 Range/Units 10:09 10:09 11:44 WBC 12.3 H (3.8-10.6) k/uL RBC 3.56 L (4.30-5.90) m/uL Hgb 10.6 L (13.0-17.5) gm/dL Hct 31.9 L (39.0-53.0) % RDW 17.2 H (11.5-15.5) % Neutrophils # 11.2 H (1.3-7.7) k/uL Lymphocytes # 0.4 L (1.0-4.8) k/uL Sodium 133 L (137-145) mmol/L Chloride 108 H (98-107) mmol/L Carbon Dioxide 16 L (22-30) mmol/L BUN 31 H (9-20) mg/dL Creatinine (0.66-1.25) mg/dL Glucose 206 H (74-99) mg/dL POC Glucose (mg/dL) 185 H (75-99) mg/dL Plasma Lactic Acid Nikolay (0.7-2.0) mmol/L Urine Glucose (UA) (Negative) Microbiology - Last 24 Hours (Table) 07/20/21 18:40 Blood Culture Gram Stain - Preliminary Blood Blood Culture - Preliminary Streptococcus species 07/20/21 19:00 Blood Culture Gram Stain - Preliminary Blood 07/20/21 19:00 Blood Culture - Final Blood 07/20/21 18:40 Blood Culture - Final Blood
[2021-07-22 06:02] LABS: Glucose,Whole Blood 131 mg/dL (75-99)
[2021-07-22] MEDS: PANTOPRAZOLE 40 MG TABLET PO SCH (06:57)
[2021-07-22] MEDS: INSULIN ASPART (NovoLOG) 100 UNIT/ML VIAL SQ SCH ×4 (06:57→20:27)
[2021-07-22] MEDS: INSULIN NPH 300 UNIT/3 ML VIAL SQ SCH ×3 (06:57→17:30)
[2021-07-22] MEDS: ATORVASTATIN 80 MG TAB PO SCH (08:09)
[2021-07-22] MEDS: AMIODARONE 200 MG TAB PO SCH (08:09)
[2021-07-22] MEDS: EZETIMIBE 10 MG TAB PO SCH (08:09)
[2021-07-22] MEDS: SPIRONOLACTONE 25 MG TAB PO SCH (08:09)
[2021-07-22] MEDS: FENOFIBRATE 160 MG TAB PO SCH (08:10)
[2021-07-22] MEDS: FERROUS SULFATE 325 MG TAB PO SCH ×2 (08:10→20:26)
[2021-07-22] MEDS: METOPROLOL SUCCINATE (ER) 100 MG TAB.ER.24H PO SCH (08:10)
[2021-07-22] MEDS: APIXABAN 5 MG TAB PO SCH (08:10)
--- NOTE | 2021-07-22 11:34 | ECHOF ---
Referral Reason:bacteremia MEASUREMENTS -------- HEIGHT: 180.3 cm WEIGHT: 91.6 kg BP: 119/58 IVSd: 1.3 cm (0.6 - 1.1) LVIDd: 5.6 cm (3.9 - 5.3) LVPWd: 1.1 cm (0.6 - 1.1) EDV(Teich): 156 ml IVSs: 1.7 cm LVIDs: 4.7 cm LVPWs: 1.2 cm %IVS Thck: 29 % ESV(Teich): 100 ml EF(Teich): 36 % %FS: 17 % SV(Teich): 56 ml LALs A4C: 5.0 cm LAAs A4C: 15.5 cm LAESV A-L A4C: 41 ml LAESV MOD A4C: 38 ml LALs A2C: 5.3 cm LAAs A2C: 22.1 cm LAESV A-L A2C: 78 ml LAESV MOD A2C: 74 ml LAESV(A-L): 58 ml LAESV Index (A-L): 27.41 ml/m Ao Diam: 3.5 cm (2.0 - 3.7) LA Diam: 2.9 cm (2.7 - 3.8) AV Cusp: 1.8 cm (1.5 - 2.6) EPSS: 1.8 cm MV E Link: 1.47 m/s MV DecT: 280 ms MV Dec [place]: 5.3 m/s MV A Link: 1.63 m/s MV E/A Ratio: 0.90 MV PHT: 81 ms MV PHT: 82 ms MVA By PHT: 2.7 cm MV Vmax: 1.72 m/s MV Vmean: 1.02 m/s MV maxP.88 mmHg MV meanP.80 mmHg MV VTI: 50.0 cm MR Vmax: 2.47 m/s MR maxP.66 mmHg AV Vmax: 1.69 m/s AV maxP.38 mmHg AV Vmax: 1.78 m/s AV Vmean: 1.20 m/s AV maxP.71 mmHg AV meanP.90 mmHg AV Env.Ti: 318 ms AV VTI: 38.3 cm TR Vmax: 2.28 m/s TR maxP.85 mmHg RAP: 5.00 mmHg RVSP: 25.85 mmHg MV EF SLOPE: 39.96 mm/s (70 - 150) MV EXCURSION: 11.43 mm (> 18.000) FINDINGS -------- Pacerwire seen in RV and RA. AICD This was a technically difficult study with suboptimal views. The left ventricular size is normal. Overall left ventricular systolic function is moderate-severel y impaired with, an EF between 30 - 35 %. Sigmoid shaped septum with focal hypertrophy of the basal septum. The remaining wall thickness is normal. Left ventricular fillimg pressure cannot be estima elvis due to paced rhythm. ANTEROAPICAL AKINESIS Peak/mean gradient across the Aortic Valve is 12.71mmHg / 6.90mmHg. Normally functioning bioprosthe tic valve. The mitral valve leaflets are moderately thickened. Mild mitral annular calcification present. Mi ld mitral regurgitation is present. Mild mitral stenosis. The peak and mean MV gradients are 11. 88mmHg 4.80mmHg as measured by doppler. The tricuspid valve appears structurally normal. Mild tricuspid regurgitation present. Right vent ricular systolic pressure is normal at < 35 mmHg. The pulmonic valve was not well visualized. The aortic root size is normal. IVC Not well visulized. There is no pericardial effusion. Lumason used CONCLUSIONS -------- 1. Pacerwire seen in RV and RA. 2. AICD 3. The left ventricular size is normal. 4. Overall left ventricular systolic function is moderate-severely impaired with, an EF between 30 - 35 %. 5. Sigmoid shaped septum with focal hypertrophy of the basal septum. The remaining wall thickness is normal. 6. Left ventricular fillimg pressure cannot be estimated due to paced rhythm. 7. Peak/mean gradient across the Aortic Valve is 12.71mmHg / 6.90mmHg. 8. Normally functioning bioprosthetic valve. 9. The mitral valve leaflets are moderately thickened. 10. Mild mitral annular calcification present. 11. Mild mitral regurgitation is present. 12. The peak and mean MV gradients are 11.88mmHg 4.80mmHg as measured by doppler. 13. Mild mitral stenosis. 14. Mild tricuspid regurgitation present. 15. There is no pericardial effusion. NEWSPAPER DELIVERY DRIVER: Michelle Coleman RDCS
[2021-07-22 11:45] LABS: Glucose,Whole Blood 256 mg/dL (75-99)
[2021-07-22 11:46] VITALS: BMI 27.0
[2021-07-22] MEDS: AMPICILLIN-SULBACTAM 3 GM in SODIUM CHLORIDE 0.9% 100 ML IVPB SCH ×2 (12:56→19:48)
--- NOTE | 2021-07-22 16:22 | PN ---
PROGRESS NOTE DATE OF SERVICE: 07/22/2021 REASON FOR FOLLOWUP: Streptococcal bacteremia. INTERVAL HISTORY: The patient is currently afebrile. The patient is feeling better, breathing comfortably. The patient denies having any chest pain, shortness of breath or cough. No nausea, no vomiting. No abdominal pain or diarrhea. The patient did have an upper jaw tooth that broke off, with some pain and discomfort to the area. PHYSICAL EXAMINATION: Blood pressure 158/52 with a pulse of 70, temperature 98.1. He is 98% on room air. GENERAL DESCRIPTION: General description is an elderly male lying in bed in no distress. RESPIRATORY SYSTEM: Unlabored breathing. Clear to auscultation anteriorly. HEART: S1, S2. Regular rate and rhythm. ABDOMEN: Soft. No tenderness. EXAMINATION OF LOWER ORAL CAVITY: He did have an upper jaw infected tooth. DIAGNOSTIC IMPRESSION AND PLAN: Patient with a streptococcal bacteremia. Source is possibly infected and possible abscess. Antibiotic adjusted to Unasyn 3 grams q.6 hours while waiting for the ID of this pathogen. Awaiting echocardiogram. Continue with supportive care. MMODL / IJN: [id number] /
[2021-07-22 16:34] LABS: Glucose,Whole Blood 311 mg/dL (75-99)
[2021-07-22 20:19] LABS: Glucose,Whole Blood 260 mg/dL (75-99)
[2021-07-23] MEDS: AMPICILLIN-SULBACTAM 3 GM in SODIUM CHLORIDE 0.9% 100 ML IVPB SCH ×5 (00:23→23:19)
[2021-07-23 05:55] LABS: Glucose,Whole Blood 174 mg/dL (75-99)
[2021-07-23] MEDS: INSULIN ASPART (NovoLOG) 100 UNIT/ML VIAL SQ SCH ×4 (06:50→20:26)
[2021-07-23] MEDS: PANTOPRAZOLE 40 MG TABLET PO SCH (06:50)
[2021-07-23] MEDS: INSULIN NPH 300 UNIT/3 ML VIAL SQ SCH ×3 (07:11→17:17)
[2021-07-23] MEDS: FENOFIBRATE 160 MG TAB PO SCH (08:13)
[2021-07-23] MEDS: METOPROLOL SUCCINATE (ER) 100 MG TAB.ER.24H PO SCH (08:13)
[2021-07-23] MEDS: AMIODARONE 200 MG TAB PO SCH (08:13)
[2021-07-23] MEDS: ATORVASTATIN 80 MG TAB PO SCH (08:13)
[2021-07-23] MEDS: APIXABAN 5 MG TAB PO SCH (08:13)
[2021-07-23] MEDS: EZETIMIBE 10 MG TAB PO SCH (08:13)
[2021-07-23] MEDS: FERROUS SULFATE 325 MG TAB PO SCH ×2 (08:13→20:26)
[2021-07-23] MEDS: SPIRONOLACTONE 25 MG TAB PO SCH (08:13)
[2021-07-23 09:01] LABS: Potassium 4.1 mmol/L (3.5-5.1)
[2021-07-23 09:33] LABS: Anisocytosis Slight; Basophils % (A) 1 %; Eosinophils # (A) 0.1 k/uL (0-0.7); Eosinophils % (A) 1 %; HGB 11.6 gm/dL (13.0-17.5); Lymphocytes # (A) 0.9 k/uL (1.0-4.8); Lymphocytes % (A) 15 %; MCH 29.8 pg (25.0-35.0); MCHC 33.3 g/dL (31.0-37.0); MCV 89.3 fL (80.0-100.0); Mean Platelet Volume 10.7; Monocytes # (A) 0.4 k/uL (0-1.0); Monocytes % (A) 6 %; Neutrophils # (A) 4.3 k/uL (1.3-7.7); Neutrophils % (A) 74 %; Platelet Count 168 k/uL (150-450); RBC 3.91 m/uL (4.30-5.90); RDW 16.8 % (11.5-15.5); WBC 5.9 k/uL (3.8-10.6)
--- NOTE | 2021-07-23 11:00 | P.PN ---
Subjective Progress Note Date: 07/22/21 Principal diagnosis: Group D Enterococcus bacteremia Patient is a 80-year-old male with a known history of atrial fibrillation on anticoagulation with Eliquis, hypertension, hyperlipidemia, diabetes type 2, history of [place], prostate cancer status post radiation and laser treatment, microcytic anemia, history of AICD placement and cardiac valve replacement, coronary coronary artery disease and stent placement and previous history of smoking presents to ER with the complaints of fever. Patient states that he woke up in the bed and felt very cold and could not get out of bed and not feeling well. Sudden onset of symptoms around known yesterday. Patient was brought to ER by EMS. Patient was found to be febrile with T-max 100.3. Patient was also hypotensive with blood pressure in 70s. Patient was given small fluid bolus while coming to ER. Otherwise patient feels very weak and denied any loss of consciousness. No complains of cough is from production. This lightheaded. No commerce of chest pain. No nausea vomiting or abdominal pain or diarrhea. Patient was given fluid boluses in the ER. Laboratory data showed RBC 16.4, hemoglobin 11.6 and platelets 186 Sodium 120 pressure 4.5 chloride 104 bicarb is 15 BUN 42 creatinine 1.56 Lactic acid 2.3 blood sugar 260 And liver exams are not elevated Influenza, COVID-19 PCR not detected. Urinalysis is negative for infection EKG showed normal sinus rhythm Chest x-ray showed no active cardiopulmonary disease. There is clearing of the bilateral extensive pulmonary infiltrates compared to old exam. Neck and EKG showed normal sinus rhythm 07/22/2021 Patient is currently resting in the bed comfortably. No complaints of chest pain or shortness breath. Patient has been afebrile. Blood pressure is better controlled. Laboratory data showed a pro-calcitonin level I.24 and CRP 8.4. Chest x-ray showed no acute cardio pulmonary process and due to bacteremia endovascular source is being considered. 2-D echocardiogram was ordered to rule out any vegetations. ID is following. Patient is being continued on IV antibiotics. No complaints of chest pain or shortness of breath. No headache or dizziness or lightheadedness. No tightness. No leg swelling. Current medications reviewed. Objective - Vital Signs Vital signs: Vital Signs Temp 98.1 F 07/22/21 08:00 Pulse 70 07/22/21 11:56 Resp 16 07/22/21 11:56 BP 115/58 07/22/21 11:56 Pulse Ox 98 07/22/21 11:56 Intake & Output 07/21/21 07/22/21 07/22/21 18:59 06:59 18:59 Intake Total 1260 520 Output Total 850 425 425 Balance 410 -425 95 Weight 90.4 kg 90.4 kg Intake: IV 100 Ampicillin-Sulbactam 3 gm 100 In Sodium Chloride 0.9% 100 ml @ 200 mls/hr IVPB Q6HR [facility] Rx#:[id number] Oral 1260 420 Output: Urine 850 425 425 Other: # Voids 1 1 - Exam PHYSICAL EXAMINATION: Patient is lying in the bed comfortably, no acute distress, awake alert and oriented.. HEENT: Normocephalic. Neck is supple. Pupils reactive. Nostrils clear. Oral cavity is moist. Neck reveals no JVD, carotid bruits, or thyromegaly. CHEST EXAMINATION: Trachea is central. Symmetrical expansion. Lung roman clear to auscultation and percussion. CARDIAC: Normal S1, S2 with no gallops. No murmurs ABDOMEN: Soft. Bowel sounds normal. No organomegaly. No abdominal bruits. Extremities: reveal no edema. No clubbing or cyanosis Neurologically awake, alert, oriented x3 with well-coordinated movements. No focal deficits noted Skin: No rash or skin lesions. Psychiatric: Coperative. Nonsuicidal Musculoskeletal: No joint swelling or deformity. Normal range of motion. - Labs CBC & Chem 7: 07/25/21 07:33 07/25/21 07:33 Labs: Abnormal Lab Results - Last 24 Hours (Table) 07/21/21 07/22/21 07/22/21 Range/Units 20:51 05:44 05:44 POC Glucose (mg/dL) 232 H (75-99) mg/dL C-Reactive Protein 8.4 H (<1.0) mg/dL Procalcitonin 1.24 H (0.02-0.09) ng/mL 07/22/21 07/22/21 07/22/21 Range/Units 06:01 11:44 16:33 POC Glucose (mg/dL) 131 H 256 H 311 H (75-99) mg/dL C-Reactive Protein (<1.0) mg/dL Procalcitonin (0.02-0.09) ng/mL Microbiology - Last 24 Hours (Table) 07/21/21 10:09 Blood Culture - Preliminary Blood No Growth after 24 hours 07/20/21 18:40 Blood Culture Gram Stain - Preliminary Blood Blood Culture - Preliminary Streptococcus species 07/20/21 19:00 Blood Culture Gram Stain - Preliminary Blood Assessment and Plan Assessment: Hypovolemic shock possible septic shock requiring multiple fluid boluses in the ER Streptococcal bacteremia. Suspected endovascular source.. Generalized weakness and fatigue secondary to sepsis, dehydration and volume depletion Possible bilateral pneumonia Acute kidney injury likely prerenal. Improved now Hyperglycemia with uncontrolled diabetes type 2 Lactic acidosis Hypertension Hyperlipidemia History of GI bleed History of [place] History of cardiac valve replacement History of AICD placement Paroxysmal atrial fibrillation on anticoagulation with Eliquis Andrei artery disease with history of stent placement Procedures history of smoking DVT prophylaxis. Plan: Patient be continued on telemetry monitoring. Blood pressure improved with fluid boluses in the ER. Patient was on antibiotics in the form of ceftriaxone and azithromycin. Changed to Unasyn with blood cultures showing streptococcal bacteremia. 2-D echocardiogram was done to rule out any vegetations. ID is following. Current with home medications including metoprolol, Eliquis and amiodarone and statins. Follow-up culture reports. Infectious disease consult and continue to follow closely. Encourage oral intake.. Prognosis is guarded at this time. Time with Patient: Greater than 30
[2021-07-23 11:38] LABS: Glucose,Whole Blood 190 mg/dL (75-99)
[2021-07-23] MEDS: IOPAMIDOL CONTRAST (ORAL USE) VIAL PO PRN ×2 (13:34→14:25)
--- NOTE | 2021-07-23 13:54 | PN ---
PROGRESS NOTE DATE OF SERVICE: 07/23/2021 REASON FOR FOLLOWUP: Streptococcal bacteremia. INTERVAL HISTORY: The patient is afebrile. The patient is feeling better, breathing comfortably. The patient denies having any chest pain, shortness of breath or cough. No nausea, no vomiting, no abdominal pain or diarrhea. PHYSICAL EXAMINATION: Blood pressure is 136/57, pulse of 62. Temperature is 97.6. He is 99% on room air. GENERAL DESCRIPTION: General description is an elderly male lying in bed in no distress. RESPIRATORY SYSTEM: Unlabored breathing. Clear to auscultation anteriorly. HEART: S1, S2. Regular rate and rhythm. ABDOMEN: Soft. No tenderness. LABS: Hemoglobin is 11.3, white count 5.9. BUN of , creatinine 1.08. Blood culture repeat has been negative so far. DIAGNOSTIC IMPRESSION AND PLAN: Patient with streptococcal bacteremia without clear focus. Echocardiogram did not show any evidence of vegetation. We will obtain a CT of abdomen and pelvis to make there is no evidence of intraabdominal source. Continue with Unasyn and monitor his clinical course closely. Continue with supportive care. MMODL / IJN: [id number] /
--- NOTE | 2021-07-23 15:22 | CT ---
EXAMINATION TYPE: CT abdomen pelvis w con DATE OF EXAM: 07/23/2021 COMPARISON: 02/27/2017 HISTORY: Bacteremia. CT DLP: 1411 mGycm CONTRAST: CT scan of the abdomen and pelvis is performed with Oral Contrast and with IV Contrast, patient injec elvis with 80ml mL of Isovue 300. FINDINGS: LUNG BASES-: No visible nodule. No infiltrate. Tiny effusions noted bilaterally. LIVER/GB: Tiny gallstone or polyp noted. No wall thickening seen. No space occupying hepatic lesio n. Biliary tree is of normal caliber. PANCREAS: No inflammation. No distinct mass. SPLEEN: No splenic enlargement. No lesion seen. ADRENALS: No nodule. No thickening. KIDNEYS/BLADDER: No hydronephrosis. No nephrolithiasis. No distinct renal mass. Urinary bladder g rossly unremarkable. BOWEL: Normal appendix. Normal bowel caliber. No inflammation. GENITAL ORGANS: No gross abnormality. LYMPH NODES: No greater than 1cm abdominal or pelvic lymph nodes are appreciated. AORTA: No significant abnormality. OSSEOUS STRUCTURES: Severe multilevel degenerative disc disease and spondylosis. Curvature convex to the left. OTHER: No significant additional abnormality is seen. IMPRESSION: 1. Tiny effusions noted bilaterally. 2.Tiny gallstone or polyp noted. No wall thickening seen. 3. No evidence for abscess or free air. No inflammatory process appreciated.
[2021-07-23 16:42] LABS: Glucose,Whole Blood 256 mg/dL (75-99)
[2021-07-23 20:14] LABS: Glucose,Whole Blood 200 mg/dL (75-99)
[2021-07-24 05:58] LABS: Glucose,Whole Blood 128 mg/dL (75-99)
[2021-07-24] MEDS: INSULIN ASPART (NovoLOG) 100 UNIT/ML VIAL SQ SCH ×4 (06:48→20:30)
[2021-07-24] MEDS: AMPICILLIN-SULBACTAM 3 GM in SODIUM CHLORIDE 0.9% 100 ML IVPB SCH ×3 (06:53→19:02)
[2021-07-24] MEDS: PANTOPRAZOLE 40 MG TABLET PO SCH (06:53)
[2021-07-24] MEDS: INSULIN NPH 300 UNIT/3 ML VIAL SQ SCH ×3 (07:27→17:24)
[2021-07-24] MEDS: EZETIMIBE 10 MG TAB PO SCH (08:30)
[2021-07-24] MEDS: FENOFIBRATE 160 MG TAB PO SCH (08:30)
[2021-07-24] MEDS: METOPROLOL SUCCINATE (ER) 100 MG TAB.ER.24H PO SCH (08:30)
[2021-07-24] MEDS: AMIODARONE 200 MG TAB PO SCH (08:30)
[2021-07-24] MEDS: SPIRONOLACTONE 25 MG TAB PO SCH (08:30)
[2021-07-24] MEDS: APIXABAN 5 MG TAB PO SCH (08:30)
[2021-07-24] MEDS: ATORVASTATIN 80 MG TAB PO SCH (08:30)
[2021-07-24] MEDS: FERROUS SULFATE 325 MG TAB PO SCH ×2 (08:30→20:30)
--- NOTE | 2021-07-24 10:09 | P.PN ---
Subjective Progress Note Date: 07/23/21 Principal diagnosis: Group D Enterococcus bacteremia Patient is a 80-year-old male with a known history of atrial fibrillation on anticoagulation with Eliquis, hypertension, hyperlipidemia, diabetes type 2, history of [place], prostate cancer status post radiation and laser treatment, microcytic anemia, history of AICD placement and cardiac valve replacement, coronary coronary artery disease and stent placement and previous history of smoking presents to ER with the complaints of fever. Patient states that he woke up in the bed and felt very cold and could not get out of bed and not feeling well. Sudden onset of symptoms around known yesterday. Patient was brought to ER by EMS. Patient was found to be febrile with T-max 100.3. Patient was also hypotensive with blood pressure in 70s. Patient was given small fluid bolus while coming to ER. Otherwise patient feels very weak and denied any loss of consciousness. No complains of cough is from production. This lightheaded. No commerce of chest pain. No nausea vomiting or abdominal pain or diarrhea. Patient was given fluid boluses in the ER. Laboratory data showed RBC 16.4, hemoglobin 11.6 and platelets 186 Sodium 120 pressure 4.5 chloride 104 bicarb is 15 BUN 42 creatinine 1.56 Lactic acid 2.3 blood sugar 260 And liver exams are not elevated Influenza, COVID-19 PCR not detected. Urinalysis is negative for infection EKG showed normal sinus rhythm Chest x-ray showed no active cardiopulmonary disease. There is clearing of the bilateral extensive pulmonary infiltrates compared to old exam. Neck and EKG showed normal sinus rhythm 07/22/2021 Patient is currently resting in the bed comfortably. No complaints of chest pain or shortness breath. Patient has been afebrile. Blood pressure is better controlled. Laboratory data showed a pro-calcitonin level I.24 and CRP 8.4. Chest x-ray showed no acute cardio pulmonary process and due to bacteremia endovascular source is being considered. 2-D echocardiogram was ordered to rule out any vegetations. ID is following. Patient is being continued on IV antibiotics. No complaints of chest pain or shortness of breath. No headache or dizziness or lightheadedness. No tightness. No leg swelling. 07/23/2021 Patient is currently resting in the bed comfortably. Denied any complaints of dizziness or lightheadedness. Able to tolerate oral diet. No complaints of chest pain or shortness of breath. Patient has been afebrile. Continued on antibiotics in the form of Unasyn. TTE showed no evidence of vegetation. CT of the abdomen and pelvis was ordered to returning source of infection for bacteremia. ID is on board. Current medications reviewed. Objective - Vital Signs Vital signs: Vital Signs Temp 97.6 F 07/23/21 20:00 Pulse 63 07/23/21 20:00 Resp 18 07/23/21 20:00 BP 136/68 07/23/21 20:00 Pulse Ox 100 07/23/21 20:00 Intake & Output 07/23/21 07/23/21 07/24/21 06:59 18:59 06:59 Intake Total 200 1680 Balance 200 1680 Weight 88 kg Intake: IV 200 Ampicillin-Sulbactam 3 gm 200 In Sodium Chloride 0.9% 100 ml @ 200 mls/hr IVPB Q6HR [facility] Rx#:[id number] Oral 1680 Other: # Voids 1 1 # Bowel Movements 1 - Exam PHYSICAL EXAMINATION: Patient is lying in the bed comfortably, no acute distress, awake alert and oriented.. HEENT: Normocephalic. Neck is supple. Pupils reactive. Nostrils clear. Oral cavity is moist. Neck reveals no JVD, carotid bruits, or thyromegaly. CHEST EXAMINATION: Trachea is central. Symmetrical expansion. Lung roman clear to auscultation and percussion. CARDIAC: Normal S1, S2 with no gallops. No murmurs ABDOMEN: Soft. Bowel sounds normal. No organomegaly. No abdominal bruits. Extremities: reveal no edema. No clubbing or cyanosis Neurologically awake, alert, oriented x3 with well-coordinated movements. No focal deficits noted Skin: No rash or skin lesions. Psychiatric: Coperative. Nonsuicidal Musculoskeletal: No joint swelling or deformity. Normal range of motion. - Labs CBC & Chem 7: 07/25/21 07:33 07/25/21 07:33 Labs: Abnormal Lab Results - Last 24 Hours (Table) 07/23/21 07/23/21 07/23/21 Range/Units 05:54 07:54 07:54 RBC 3.91 L (4.30-5.90) m/uL Hgb 11.6 L (13.0-17.5) gm/dL Hct 35.0 L (39.0-53.0) % RDW 16.8 H (11.5-15.5) % Lymphocytes # 0.9 L (1.0-4.8) k/uL Sodium 136 L (137-145) mmol/L Carbon Dioxide 20 L (22-30) mmol/L BUN 22 H (9-20) mg/dL Glucose 237 H (74-99) mg/dL POC Glucose (mg/dL) 174 H (75-99) mg/dL 07/23/21 07/23/21 07/23/21 Range/Units 11:37 16:40 20:13 RBC (4.30-5.90) m/uL Hgb (13.0-17.5) gm/dL Hct (39.0-53.0) % RDW (11.5-15.5) % Lymphocytes # (1.0-4.8) k/uL Sodium (137-145) mmol/L Carbon Dioxide (22-30) mmol/L BUN (9-20) mg/dL Glucose (74-99) mg/dL POC Glucose (mg/dL) 190 H 256 H 200 H (75-99) mg/dL Microbiology - Last 24 Hours (Table) 07/21/21 10:09 Blood Culture - Preliminary Blood No Growth after 48 hours 07/22/21 05:44 Blood Culture - Preliminary Blood No Growth after 24 hours Assessment and Plan Assessment: Hypovolemic shock possible septic shock requiring multiple fluid boluses in the ER Streptococcal bacteremia. Suspected endovascular source.. TTE negative for vegetations. CT of the abdomen pelvis was ordered. Generalized weakness and fatigue secondary to sepsis, dehydration and volume depletion Possible bilateral pneumonia Acute kidney injury likely prerenal. Improved now Hyperglycemia with uncontrolled diabetes type 2 Lactic acidosis Hypertension Hyperlipidemia History of GI bleed History of [place] History of cardiac valve replacement History of AICD placement Paroxysmal atrial fibrillation on anticoagulation with Eliquis Andrei artery disease with history of stent placement Procedures history of smoking DVT prophylaxis. Plan: Patient be continued on telemetry monitoring. Blood pressure improved with fluid boluses in the ER. Patient was on antibiotics in the form of ceftriaxone and azithromycin. Changed to Unasyn with blood cultures showing streptococcal bacteremia. 2-D echocardiogram was done to rule out any vegetations. TTE showed no evidence of vegetation. Repeat cultures have been negative.. CT of the abdominal pelvis was ordered to rule out abdominal etiology. Current with home medications including metoprolol, Eliquis and amiodarone and statins. Follow-up culture reports. Infectious disease consult and continue to follow closely. Encourage oral intake.. Prognosis is guarded at this time. Time with Patient: Greater than 30
[2021-07-24 11:27] LABS: Glucose,Whole Blood 265 mg/dL (75-99)
[2021-07-24 16:35] LABS: Glucose,Whole Blood 204 mg/dL (75-99)
[2021-07-24] MEDS: CHOLESTYRAMINE (WITH SUGAR) 4 GM PACKET PO SCH (17:28)
[2021-07-24 19:49] LABS: Glucose,Whole Blood 290 mg/dL (75-99)
--- NOTE | 2021-07-24 23:31 | P.PN ---
Subjective Progress Note Date: 07/24/21 Principal diagnosis: Group D Enterococcus bacteremia Patient is a 80-year-old male with a known history of atrial fibrillation on anticoagulation with Eliquis, hypertension, hyperlipidemia, diabetes type 2, history of [place], prostate cancer status post radiation and laser treatment, microcytic anemia, history of AICD placement and cardiac valve replacement, coronary coronary artery disease and stent placement and previous history of smoking presents to ER with the complaints of fever. Patient states that he woke up in the bed and felt very cold and could not get out of bed and not feeling well. Sudden onset of symptoms around known yesterday. Patient was brought to ER by EMS. Patient was found to be febrile with T-max 100.3. Patient was also hypotensive with blood pressure in 70s. Patient was given small fluid bolus while coming to ER. Otherwise patient feels very weak and denied any loss of consciousness. No complains of cough is from production. This lightheaded. No commerce of chest pain. No nausea vomiting or abdominal pain or diarrhea. Patient was given fluid boluses in the ER. Laboratory data showed RBC 16.4, hemoglobin 11.6 and platelets 186 Sodium 120 pressure 4.5 chloride 104 bicarb is 15 BUN 42 creatinine 1.56 Lactic acid 2.3 blood sugar 260 And liver exams are not elevated Influenza, COVID-19 PCR not detected. Urinalysis is negative for infection EKG showed normal sinus rhythm Chest x-ray showed no active cardiopulmonary disease. There is clearing of the bilateral extensive pulmonary infiltrates compared to old exam. Neck and EKG showed normal sinus rhythm 07/22/2021 Patient is currently resting in the bed comfortably. No complaints of chest pain or shortness breath. Patient has been afebrile. Blood pressure is better controlled. Laboratory data showed a pro-calcitonin level I.24 and CRP 8.4. Chest x-ray showed no acute cardio pulmonary process and due to bacteremia endovascular source is being considered. 2-D echocardiogram was ordered to rule out any vegetations. ID is following. Patient is being continued on IV antibiotics. No complaints of chest pain or shortness of breath. No headache or dizziness or lightheadedness. No tightness. No leg swelling. 07/23/2021 Patient is currently resting in the bed comfortably. Denied any complaints of dizziness or lightheadedness. Able to tolerate oral diet. No complaints of chest pain or shortness of breath. Patient has been afebrile. Continued on antibiotics in the form of Unasyn. TTE showed no evidence of vegetation. CT of the abdomen and pelvis was ordered to returning source of infection for bacteremia. ID is on board. 07/24/2021 Patient is currently sitting in the chair. Awake alert and oriented x3. No complaints of chest pain or shortness of. No headache or dizziness lightheadedness. Otherwise patient is complaining of diarrhea with loose stools. Continued on antibiotics involve Unasyn. CT of the abdomen pelvis showed tiny effusions noted bilaterally. Tiny gallstone polyp noted. No wall thickening seen. No evidence for abscess or free air. No inflammatory process appreciated. ID is following. Laboratory data reviewed. Currently on insulin regimen and blood sugars controlled. Current medications reviewed. Current medications reviewed. Objective - Vital Signs Vital signs: Vital Signs Temp 98.3 F 07/24/21 20:15 Pulse 67 07/24/21 20:15 Resp 17 07/24/21 20:15 BP 115/62 07/24/21 20:15 Pulse Ox 99 07/24/21 11:53 Intake & Output 07/24/21 07/24/21 07/25/21 06:59 18:59 06:59 Intake Total 920 Balance 920 Weight 88.2 kg Intake: Intake, IV Titration 200 Amount Ampicillin-Sulbactam 3 gm 200 In Sodium Chloride 0.9% 100 ml @ 200 mls/hr IVPB Q6HR [facility] Rx#:[id number] Oral 720 Other: Voiding Method Toilet # Voids 5 1 # Bowel Movements 1 - Exam PHYSICAL EXAMINATION: Patient is lying in the bed comfortably, no acute distress, awake alert and oriented.. HEENT: Normocephalic. Neck is supple. Pupils reactive. Nostrils clear. Oral cavity is moist. Neck reveals no JVD, carotid bruits, or thyromegaly. CHEST EXAMINATION: Trachea is central. Symmetrical expansion. Lung roman clear to auscultation and percussion. CARDIAC: Normal S1, S2 with no gallops. No murmurs ABDOMEN: Soft. Bowel sounds normal. No organomegaly. No abdominal bruits. Extremities: reveal no edema. No clubbing or cyanosis Neurologically awake, alert, oriented x3 with well-coordinated movements. No focal deficits noted Skin: No rash or skin lesions. Psychiatric: Coperative. Nonsuicidal Musculoskeletal: No joint swelling or deformity. Normal range of motion. - Labs CBC & Chem 7: 07/25/21 07:33 07/25/21 07:33 Labs: Abnormal Lab Results - Last 24 Hours (Table) 07/24/21 07/24/21 07/24/21 Range/Units 05:57 11:26 16:33 POC Glucose (mg/dL) 128 H 265 H 204 H (75-99) mg/dL 07/24/21 Range/Units 19:47 POC Glucose (mg/dL) 290 H (75-99) mg/dL Microbiology - Last 24 Hours (Table) 07/21/21 10:09 Blood Culture - Preliminary Blood No Growth after 72 hours 07/20/21 19:00 Blood Culture Gram Stain - Final Blood Blood Culture - Final Group D Not Enterococcus 07/20/21 18:40 Blood Culture Gram Stain - Final Blood Blood Culture - Final Group D Not Enterococcus 07/23/21 07:54 Blood Culture - Preliminary Blood No Growth after 24 hours 07/22/21 05:44 Blood Culture - Preliminary Blood No Growth after 48 hours Assessment and Plan Assessment: Hypovolemic shock possible septic shock requiring multiple fluid boluses in the ER Group D Enterococcus bacteremia. Suspected endovascular source.. TTE negative for vegetations. CT of the abdomen pelvis Showed no signs of infective focus.. Generalized weakness and fatigue secondary to sepsis, dehydration and volume depletion Possible bilateral pneumonia Acute kidney injury likely prerenal. Improved now Hyperglycemia with uncontrolled diabetes type 2 Lactic acidosis Hypertension Hyperlipidemia History of GI bleed History of [place] History of cardiac valve replacement History of AICD placement Paroxysmal atrial fibrillation on anticoagulation with Eliquis Andrei artery disease with history of stent placement Procedures history of smoking DVT prophylaxis. Plan: Patient be continued on telemetry monitoring. Blood pressure improved with fluid boluses in the ER. Patient was on antibiotics in the form of ceftriaxone and azithromycin. Changed to Unasyn with blood cultures showing streptococcal bacteremia. 2-D echocardiogram was done to rule out any vegetations. TTE showed no evidence of vegetation. Repeat cultures have been negative.. CT of the abdominal pelvis was ordered to rule out abdominal etiology.Showed no signs of infective focus. Current with home medications including metoprolol, Eliquis and amiodarone and statins. Follow-up culture reports. Infectious disease consult and continue to follow closely. Encourage oral intake.. Prognosis is guarded at this time. Time with Patient: Greater than 30
[2021-07-25] MEDS: AMPICILLIN-SULBACTAM 3 GM in SODIUM CHLORIDE 0.9% 100 ML IVPB SCH ×4 (01:47→18:18)
--- NOTE | 2021-07-25 01:52 | PN ---
PROGRESS NOTE DATE OF SERVICE: 07/24/2021 REASON FOR FOLLOWUP: Streptococcal bacteremia. INTERVAL HISTORY: Patient is afebrile. The patient is breathing comfortably. Denies having any chest pain. No shortness of breath. No cough. No nausea, vomiting. No abdominal pain. No diarrhea. PHYSICAL EXAMINATION: Blood pressure 115/62 with a pulse of 67, temperature 98.3. He is 97% on room air. General description is an elderly male lying in bed in no distress. Respiratory system: Unlabored breathing, clear to auscultation anteriorly. Heart S1, S2. Regular rate and rhythm. Abdomen soft, no tenderness. LABS: Culture has been finalized with group D Enterococcus. DIAGNOSTIC IMPRESSION AND PLAN: Patient with group D Enterococcus bacteremia which is usually of a gut, or urine origin. However, the patient did have a negative UA. A CT of abdomen and pelvis was negative. Initial echo did not show any vegetation. However, underlying endocarditis not entirely excluded. We will obtain a cardiology evaluation for a INDIRA. Continue with Unasyn and monitor clinical course closely. MMODL / IJN: [id number] /
[2021-07-25 05:55] LABS: Glucose,Whole Blood 147 mg/dL (75-99)
[2021-07-25 07:46] LABS: Glucose,Whole Blood 152 mg/dL (75-99)
[2021-07-25] MEDS: INSULIN NPH 300 UNIT/3 ML VIAL SQ SCH ×3 (07:55→17:30)
[2021-07-25] MEDS: INSULIN ASPART (NovoLOG) 100 UNIT/ML VIAL SQ SCH ×4 (07:55→22:17)
[2021-07-25] MEDS: METOPROLOL SUCCINATE (ER) 100 MG TAB.ER.24H PO SCH (07:56)
[2021-07-25] MEDS: EZETIMIBE 10 MG TAB PO SCH (07:56)
[2021-07-25] MEDS: ATORVASTATIN 80 MG TAB PO SCH (07:56)
[2021-07-25] MEDS: FERROUS SULFATE 325 MG TAB PO SCH ×2 (07:56→22:17)
[2021-07-25] MEDS: SPIRONOLACTONE 25 MG TAB PO SCH (07:56)
[2021-07-25] MEDS: APIXABAN 5 MG TAB PO SCH (07:56)
[2021-07-25] MEDS: FENOFIBRATE 160 MG TAB PO SCH (07:56)
[2021-07-25] MEDS: AMIODARONE 200 MG TAB PO SCH (07:56)
[2021-07-25] MEDS: PANTOPRAZOLE 40 MG TABLET PO SCH (07:56)
[2021-07-25 08:00] LABS: Anisocytosis Slight; Basophils % (A) 1 %; Eosinophils # (A) 0.1 k/uL (0-0.7); Eosinophils % (A) 2 %; HCT 34.6 % (39.0-53.0); HGB 11.5 gm/dL (13.0-17.5); Lymphocytes % (A) 21 %; MCH 29.2 pg (25.0-35.0); MCHC 33.2 g/dL (31.0-37.0); MCV 87.9 fL (80.0-100.0); Monocytes # (A) 0.4 k/uL (0-1.0); Monocytes % (A) 9 %; Neutrophils # (A) 3.1 k/uL (1.3-7.7); Neutrophils % (A) 63 %; Platelet Count 191 k/uL (150-450); Poikilocytosis Slight; RBC 3.94 m/uL (4.30-5.90); WBC 4.9 k/uL (3.8-10.6)
[2021-07-25 08:13] LABS: Calcium 9.3 mg/dL (8.4-10.2); Potassium 4.7 mmol/L (3.5-5.1)
[2021-07-25 11:55] LABS: Glucose,Whole Blood 192 mg/dL (75-99)
[2021-07-25] MEDS: CHOLESTYRAMINE (WITH SUGAR) 4 GM PACKET PO SCH ×2 (12:12→18:19)
--- NOTE | 2021-07-25 12:59 | P.CRDCN ---
History of Present Illness Consult date: 07/25/21 History of present illness: HISTORY OF PRESENT ILLNESS: This is a 80-year-old male with a past medical history significant for coronary artery disease with previous PCI to the RCA and circumflex in 2015, TAVR, ischemic cardiomyopathy with AICD implantation, paroxysmal atrial fibrillation, peripheral vascular disease, hypertension, hyperlipidemia, and diabetes mellitus. Patient follows in the office with Dr. Coto. We have been asked to see the patient in consultation for INDIRA. Patient examined at the bedside. Patient states he presented to the emergency room due to weakness. He states over the past 3-4 days he has felt extremely weak and has no energy due to do much. He denied any chest pain or pressure. Denied shortness of breath. He denied having any fevers at home. The patient was found to have positive blood cultures on 07/20/2021 for group D enterococcus. EKG reveals paced rhythm Chest xray findings may be due to sequela of previous pneumonia. There is underlying emphysema. Laboratory data: WBC 4.9. Hemoglobin 11.5. Platelet count 191. Sodium 137. Potassium 4.7. BUN 22. Creatinine 1.11. Current home cardiac medications include Rosuvastatin 40 mg daily, lisinopril 2.5 mg daily, spironolactone 25 mg daily, Lasix 20 mg daily, Eliquis 5 mg daily, Lopid 600 mg twice a day, Toprol-XL 200 mg daily, amiodarone 200 mg daily Echocardiogram completed revealed ejection fraction 30-35%. Normally functioning bioprosthetic valve. Mild mitral regurgitation. Mild mitral stenosis. Mild tricuspid regurgitation. REVIEW OF SYSTEMS: At the time of my exam: CONSTITUTIONAL: Denies fever or chills. HEENT: Denies blurred vision, vision changes, or eye pain. Denies hemoptysis CARDIOVASCULAR: Denies chest pain. Denies orthopnea. Denies PND. Denies palpitations RESPIRATORY: Denies shortness of breath. GASTROINTESTINAL: Denies abdominal pain. Denies nausea or vomiting. HEMATOLOGIC: Denies bleeding disorders. GENITOURINARY: Denies any blood in urine. SKIN: Denies pruitis. Denies rash. PHYSICAL EXAM: VITAL SIGNS: Reviewed. GENERAL: Well-developed in no acute distress. HEENT: Head is normocephalic. Pupils are equal, round. Sclerae anicteric. Mucous membranes of the mouth are moist. Neck supple. No JVD or thyromegaly LUNGS: Respirations even and unlabored. Lungs essentially clear to auscultation bilaterally. HEART: Regular rate and rhythm. S1 and S2 heard. ABDOMEN: Soft. Nondistended. Nontender. EXTREMITIES: Normal range of motion. No clubbing or cyanosis. Peripheral pulses intact. No lower extremity edema NEUROLOGIC: Awake and alert. Oriented x 3. ASSESSMENT: Bacteremia, blood cultures positive for group D enterococcus Coronary artery disease with previous PCI to the RCA and circumflex History of TAVR Ischemic cardiomyopathy with AICD implantation Paroxysmal atrial fibrillation Peripheral vascular disease Hypertension Hyperlipidemia Diabetes mellitus PLAN: Continue current cardiac medications NPO at midnight Patient to undergo INDIRA tomorrow with Dr. Coto Further recommendations pending patient course Nurse practitioner note has been reviewed by physician. Signing provider agrees with the documented findings, assessment, and plan of care. Past Medical History Past Medical History: Cancer, Diabetes Mellitus, GERD/Reflux, GI Bleed, Hyperlipidemia, Hypertension, Myocardial Infarction (MS), Prostate Disorder, Skin Disorder, Vascular Disorder Additional Past Medical History / Comment(s): HX PROSTATE CA with radiation and laser sx, & Basal Cell and Melanoma microcytic iron deficiency anemia, duo denitis Last Myocardial Infarction Date:: 1999 History of Any Multi-Drug Resistant Organisms: None Reported Past Surgical History: Adenoidectomy, AICD, Cardiac Valve Replacement, Heart Catheterization, Heart Catheterization With Stent, Tonsillectomy Additional Past Surgical History / Comment(s): 12/12/15 R fempop PTCA with stent X2.Other surgical hx 09/2015 TARV AT [facility]. HEART STENTS X3. Laser/Radiation Tx for Prosate CA. EXC Rt Upper Arm Melanoma, Basal Cell EXC FROM SCALP. PTCA 06/15/15, INDIRA 08/22/15. ABD AORTOGRAM W/ RUNOFF 12/10/15, EGD, colonoscopy with arteriovenous malformation. LEFT NECK BASAL CELL CA REMOVED Past Anesthesia/Blood Transfusion Reactions: No Reported Reaction Date of Last Stent Placement:: 1999 Type of Cardiac Device: AICD Device Placement Date:: 04/01/2016-[facility] [place]-(model [id number] pt) Past Psychological History: No Psychological Hx Reported Additional Psychological History / Comment(s): . Smoking Status: Former smoker Past Alcohol Use History: Rare Additional Past Alcohol Use History / Comment(s): quit smoking in 1999 started age 16, smoked 2 ppd Past Drug Use History: None Reported - Past Family History Father Family Medical History: Diabetes Mellitus, Myocardial Infarction (MS) Additional Family Medical History / Comment(s): Father of a MS at age 64yrs. Mother History Unknown: Yes Family Medical History: No Reported History Additional Family Medical History / Comment(s): Mother at age 68 yrs. Medications and Allergies Home Medications Medication Instructions Recorded Confirmed Type gemfibroziL [Lopid] 600 mg PO BID 02/27/17 07/20/21 History Ezetimibe 10 mg PO DAILY 11/04/19 07/20/21 History Rosuvastatin Calcium 40 mg PO DAILY 11/04/19 07/20/21 History Spironolactone 25 mg PO DAILY 11/04/19 07/20/21 History Furosemide [Lasix] 20 mg PO DAILY #30 tab 11/10/19 07/20/21 Rx Pantoprazole Sodium [Protonix] 40 mg PO LAVONNE-LOUISE #30 tablet. 11/10/19 07/20/21 Rx Apixaban [Eliquis] 5 mg PO DAILY 04/07/21 07/20/21 History Ferrous Sulfate [Iron (65 MG 325 mg PO BID 04/07/21 07/20/21 History Elemental)] Metoprolol Succinate (ER) [Toprol 200 mg PO DAILY 04/07/21 07/20/21 History XL] Amiodarone HCl [Pacerone] 200 mg PO DAILY 07/20/21 07/20/21 History Insulin NPH Human Isophane 35 units SQ DAILY 07/20/21 07/20/21 History [NovoLIN N] lisinopriL [Zestril] 2.5 mg PO DAILY 07/20/21 07/20/21 History Empagliflozin/Linagliptin 1 tab PO DAILY 07/21/21 07/21/21 History [Glyxambi 25 mg-5 mg Tablet] Allergies Allergy/AdvReac Type Severity Reaction Status Date / Time bismuth subsalicylate Allergy Severe ABD PAIN, Verified 04/07/21 16:41 [From Pepto-Bismol] N/V molasses Allergy Severe Nausea & Uncoded 04/07/21 13:43 Vomiting Physical Exam Vitals: Vital Signs Temp Pulse Resp BP Pulse Ox 07/25/21 08:00 97.9 F 71 16 125/74 99 07/25/21 04:00 97.7 F 62 20 122/69 98 07/25/21 00:00 72 18 116/64 07/24/21 20:15 98.3 F 67 17 115/62 07/24/21 16:25 97.6 F 65 17 136/79 Intake and Output 07/24/21 07/25/21 07/25/21 22:59 06:59 14:59 Intake Total 440 Balance 440 Intake: Intake, IV Titration 200 Amount Ampicillin-Sulbactam 3 gm 200 In Sodium Chloride 0.9% 100 ml @ 200 mls/hr IVPB Q6HR MOHAN Rx#:[id number] Oral 240 Other: Voiding Method Toilet # Voids 1 1 # Bowel Movements 1 Weight 89.6 kg Results 07/25/21 07:33 07/25/21 07:33 CBC 07/25/21 Range/Units 07:33 WBC 4.9 (3.8-10.6) k/uL RBC 3.94 L (4.30-5.90) m/uL Hgb 11.5 L (13.0-17.5) gm/dL Hct 34.6 L (39.0-53.0) % Plt Count 191 (150-450) k/uL Comprehensive Metabolic Panel 07/25/21 Range/Units 07:33 Sodium 137 (137-145) mmol/L Potassium 4.7 (3.5-5.1) mmol/L Chloride 105 (98-107) mmol/L Carbon Dioxide 26 (22-30) mmol/L BUN 22 H (9-20) mg/dL Creatinine 1.11 (0.66-1.25) mg/dL Glucose 141 H (74-99) mg/dL Calcium 9.3 (8.4-10.2) mg/dL Current Medications Generic Name Dose Route Start Last Admin Trade Name Freq PRN Reason Stop Dose Admin Amiodarone HCl 200 mg 07/21/21 09:00 07/25/21 07:56 Amiodarone 200 Mg Tab PO 200 mg DAILY MOHAN Administration Apixaban 5 mg 07/21/21 09:00 07/25/21 07:56 Apixaban 5 Mg Tab PO 5 mg DAILY MOHAN Administration Protocol Atorvastatin Calcium 80 mg 07/21/21 09:00 07/25/21 07:56 Atorvastatin 80 Mg Tab PO 80 mg DAILY MOHAN Administration Cholestyramine Resin 4 gm 07/24/21 18:00 07/25/21 12:12 Cholestyramine (With Sugar) 4 Gm Packet PO 4 gm BID@1000,1800 MOHAN Administration Ezetimibe 10 mg 07/21/21 09:00 07/25/21 07:56 Ezetimibe 10 Mg Tab PO 10 mg DAILY MOHAN Administration Fenofibrate 160 mg 07/21/21 09:00 07/25/21 07:56 Fenofibrate 160 Mg Tab PO 160 mg DAILY MOHAN Administration Ferrous Sulfate 325 mg 07/21/21 09:00 07/25/21 07:56 Ferrous Sulfate 325 Mg Tab PO 325 mg BID MOHAN Administration Ampicillin Sodium/Sulbactam 100 mls @ 200 mls/hr 07/22/21 12:30 07/25/21 12:12 Sodium 3 gm/ Sodium Chloride IVPB 200 mls/hr Q6HR MOHAN Administration Insulin Aspart 0 unit 07/21/21 07:30 07/25/21 12:12 Insulin Aspart (Novolog) 100 Unit/Ml Vial SQ 2 unit ACHS MOHAN Administration Protocol Insulin Human NPH 10 unit 07/21/21 12:30 07/25/21 12:12 Insulin Nph 300 Unit/3 Ml Vial SQ 10 unit TID-W/MEALS MOHAN Administration Metoprolol Succinate 200 mg 07/21/21 09:00 07/25/21 07:56 Metoprolol Succinate (Er) 100 Mg Tab.Er.24h PO 200 mg DAILY MOHAN Administration Miscellaneous Information 1 each 07/20/21 21:48 Pneumonia Protocol Utilized 1 Each Misc PO ONCE PRN Per Protocol Pantoprazole Sodium 40 mg 07/21/21 07:30 07/25/21 07:56 Pantoprazole 40 Mg Tablet PO 40 mg [id number] MOHAN Administration Spironolactone 25 mg 07/21/21 09:00 07/25/21 07:56 Spironolactone 25 Mg Tab PO 25 mg DAILY MOHAN Administration Intake and Output 07/24/21 07/25/21 07/25/21 22:59 06:59 14:59 Intake Total 440 Balance 440 Intake: Intake, IV Titration 200 Amount Ampicillin-Sulbactam 3 gm 200 In Sodium Chloride 0.9% 100 ml @ 200 mls/hr IVPB Q6HR [facility] Rx#:[id number] Oral 240 Other: Voiding Method Toilet # Voids 1 1 # Bowel Movements 1 Weight 89.6 kg 07/25/21 07:33 07/25/21 07:33
--- NOTE | 2021-07-25 13:42 | PN ---
PROGRESS NOTE DATE OF SERVICE: 07/25/2021 REASON FOR FOLLOWUP: Enterococcus faecalis bacteremia, question endovascular source. INTERVAL HISTORY: Patient is currently afebrile. The patient is feeling better. Breathing comfortably. No chest pain, shortness of breath or cough. No abdominal pain. Is complaining of some diarrhea. PHYSICAL EXAMINATION: Blood pressure is 117/64 with a pulse of 74, temperature 98.4. He is 99% on room air. General description is an elderly male up in the chair in no distress. Respiratory system: Unlabored breathing, clear to auscultation anteriorly. Heart S1, S2. Regular rate and rhythm. Abdomen: Soft, no tenderness. LAB DATA: Hemoglobin 11.5, white count 4.9, BUN of 22, creatinine is 1.1. DIAGNOSTIC IMPRESSION AND PLAN: Patient with enterococcus faecalis bacteremia. CT of abdomen and pelvis. Urine has been negative. Question of endovascular source. Waiting for the INDIRA. Continue with Unasyn and monitor clinical course closely. MMODL / IJN: [id number] /
[2021-07-25 16:56] LABS: Glucose,Whole Blood 217 mg/dL (75-99)
[2021-07-25 20:24] LABS: Glucose,Whole Blood 240 mg/dL (75-99)
[2021-07-26] MEDS: AMPICILLIN-SULBACTAM 3 GM in SODIUM CHLORIDE 0.9% 100 ML IVPB SCH ×3 (00:15→11:57)
[2021-07-26 06:31] LABS: Glucose,Whole Blood 141 mg/dL (75-99)
[2021-07-26] MEDS: INSULIN NPH 300 UNIT/3 ML VIAL SQ SCH ×2 (07:30→11:58)
[2021-07-26] MEDS: INSULIN ASPART (NovoLOG) 100 UNIT/ML VIAL SQ SCH ×2 (07:30→11:57)
[2021-07-26] MEDS ORDERED: fentaNYL (PF) 50 MCG/ML 2 ML AMP ONE (08:25)
[2021-07-26] MEDS ORDERED: SODIUM CHLORIDE 0.9% 500 ML 500 ML IV ONE (08:41)
[2021-07-26] MEDS: BENZOCAINE SPRAY 1 CAN MUCOUS MEM ONE ×2 (08:50→09:00)
[2021-07-26] MEDS ORDERED: MIDAZOLAM 2 MG/2 ML VIAL IV ONE ×2 (09:00→09:03)
[2021-07-26] MEDS ORDERED: fentaNYL (PF) 50 MCG/ML 2 ML AMP IV ONE (09:01)
[2021-07-26 09:47] LABS: Glucose,Whole Blood 145 mg/dL (75-99)
[2021-07-26] MEDS: CHOLESTYRAMINE (WITH SUGAR) 4 GM PACKET PO SCH (10:01)
[2021-07-26] MEDS: ATORVASTATIN 80 MG TAB PO SCH (10:02)
[2021-07-26] MEDS: SPIRONOLACTONE 25 MG TAB PO SCH (10:02)
[2021-07-26] MEDS: PANTOPRAZOLE 40 MG TABLET PO SCH (10:02)
[2021-07-26] MEDS: METOPROLOL SUCCINATE (ER) 100 MG TAB.ER.24H PO SCH (10:02)
[2021-07-26] MEDS: FERROUS SULFATE 325 MG TAB PO SCH (10:02)
[2021-07-26] MEDS: AMIODARONE 200 MG TAB PO SCH (10:02)
[2021-07-26] MEDS: EZETIMIBE 10 MG TAB PO SCH (10:02)
[2021-07-26] MEDS: FENOFIBRATE 160 MG TAB PO SCH (10:02)
[2021-07-26] MEDS: APIXABAN 5 MG TAB PO SCH (10:02)
--- NOTE | 2021-07-26 11:22 | ECHOT ---
TRANSESOPHAGEAL ECHOCARDIOGRAM DATE OF SERVICE: July 26, 2021 PERFORMING PHYSICIAN: Matthew Coto MD. PROCEDURE PERFORMED: Transesophageal echocardiogram. INDICATION: Rule out infective endocarditis. COMPLICATION: None. LEVEL OF SEDATION: Moderate with sedation length of 8 minutes. PROCEDURE DESCRIPTION: After obtaining an informed consent, the patient was brought to the transesophageal echocardiogram room. Pulse oximetry and heart rate monitors were attached to the patient. Subsequently, the transesophageal echocardiogram was advanced to the mid esophageal. After giving the patient a total of 3 mg of Versed and 50 of fentanyl on divided doses. We did interrogation using 2D echo, as well as color Doppler and pulse Doppler, and continuous-wave Doppler. The procedure was completed without any complication. FINDINGS: The left ventricular dimension and systolic function appeared to be within normal limits. The ejection fraction appeared to be in the range of 50%. The right ventricle appeared to be of normal size and function. The aortic valve appeared to be transcatheter valve without any stenosis with mild perivalvular regurgitation without any evidence of infective endocarditis. The mitral valve seems to be mildly thickened with moderate MR was mild tricuspid regurgitation seen. No evidence of pericardial effusion identified. CONCLUSION: 1. No evidence of infective endocarditis. 2. Normally functioning transcatheter aortic valve. 3. Moderate mitral regurgitation seen. 4. Normal tricuspid valve and pulmonic valve. 5. No evidence of pericardial effusion. MMODL / IJN: [id number] /
[2021-07-26 11:45] LABS: Glucose,Whole Blood 180 mg/dL (75-99)
--- NOTE | 2021-07-26 14:18 | P.PN ---
Subjective Progress Note Date: 07/25/21 Principal diagnosis: Group D Enterococcus bacteremia Patient is a 80-year-old male with a known history of atrial fibrillation on anticoagulation with Eliquis, hypertension, hyperlipidemia, diabetes type 2, history of CT, prostate cancer status post radiation and laser treatment, microcytic anemia, history of AICD placement and cardiac valve replacement, coronary coronary artery disease and stent placement and previous history of smoking presents to ER with the complaints of fever. Patient states that he woke up in the bed and felt very cold and could not get out of bed and not feeling well. Sudden onset of symptoms around known yesterday. Patient was brought to ER by EMS. Patient was found to be febrile with T-max 100.3. Patient was also hypotensive with blood pressure in 70s. Patient was given small fluid bolus while coming to ER. Otherwise patient feels very weak and denied any loss of consciousness. No complains of cough is from production. This lightheaded. No commerce of chest pain. No nausea vomiting or abdominal pain or diarrhea. Patient was given fluid boluses in the ER. Laboratory data showed RBC 16.4, hemoglobin 11.6 and platelets 186 Sodium 120 pressure 4.5 chloride 104 bicarb is 15 BUN 42 creatinine 1.56 Lactic acid 2.3 blood sugar 260 And liver exams are not elevated Influenza, COVID-19 PCR not detected. Urinalysis is negative for infection EKG showed normal sinus rhythm Chest x-ray showed no active cardiopulmonary disease. There is clearing of the bilateral extensive pulmonary infiltrates compared to old exam. Neck and EKG showed normal sinus rhythm 07/22/2021 Patient is currently resting in the bed comfortably. No complaints of chest pain or shortness breath. Patient has been afebrile. Blood pressure is better controlled. Laboratory data showed a pro-calcitonin level I.24 and CRP 8.4. Chest x-ray showed no acute cardio pulmonary process and due to bacteremia endovascular source is being considered. 2-D echocardiogram was ordered to rule out any vegetations. ID is following. Patient is being continued on IV antibiotics. No complaints of chest pain or shortness of breath. No headache or dizziness or lightheadedness. No tightness. No leg swelling. 07/23/2021 Patient is currently resting in the bed comfortably. Denied any complaints of dizziness or lightheadedness. Able to tolerate oral diet. No complaints of chest pain or shortness of breath. Patient has been afebrile. Continued on antibiotics in the form of Unasyn. TTE showed no evidence of vegetation. CT of the abdomen and pelvis was ordered to returning source of infection for bacteremia. ID is on board. 07/24/2021 Patient is currently sitting in the chair. Awake alert and oriented x3. No complaints of chest pain or shortness of. No headache or dizziness lightheadedness. Otherwise patient is complaining of diarrhea with loose stools. Continued on antibiotics involve Unasyn. CT of the abdomen pelvis showed tiny effusions noted bilaterally. Tiny gallstone polyp noted. No wall thickening seen. No evidence for abscess or free air. No inflammatory process appreciated. ID is following. Laboratory data reviewed. Currently on insulin regimen and blood sugars controlled. 07 25 21 Patient is currently sitting in the chair. Denied any complaints of dizziness or lightheadedness. No fever no chills. Patient is being continued on antibiotics of Unasyn. Cultures are growing group B enterococcus. CT of the abdomen showed no effective progress. Cardiology was consulted for possible INDIRA tomorrow. Patient is tolerating oral diet. No nausea vomiting or abdominal pain or diarrhea. ID is on board. Current medications reviewed. Objective - Vital Signs Vital signs: Vital Signs Temp 96.9 F L 07/25/21 21:33 Pulse 64 07/25/21 21:33 Resp 18 07/25/21 21:33 BP 125/63 07/25/21 21:33 Pulse Ox 99 07/25/21 21:33 Intake & Output 07/25/21 07/25/21 07/26/21 06:59 18:59 06:59 Intake Total 360 800 Balance 360 800 Weight 89.6 kg Intake: Oral 360 800 Other: Voiding Method Toilet Urinal # Voids 1 1 # Bowel Movements 1 - Exam PHYSICAL EXAMINATION: Patient is lying in the bed comfortably, no acute distress, awake alert and oriented.. HEENT: Normocephalic. Neck is supple. Pupils reactive. Nostrils clear. Oral cavity is moist. Neck reveals no JVD, carotid bruits, or thyromegaly. CHEST EXAMINATION: Trachea is central. Symmetrical expansion. Lung roman clear to auscultation and percussion. CARDIAC: Normal S1, S2 with no gallops. No murmurs ABDOMEN: Soft. Bowel sounds normal. No organomegaly. No abdominal bruits. Extremities: reveal no edema. No clubbing or cyanosis Neurologically awake, alert, oriented x3 with well-coordinated movements. No focal deficits noted Skin: No rash or skin lesions. Psychiatric: Coperative. Nonsuicidal Musculoskeletal: No joint swelling or deformity. Normal range of motion. - Labs CBC & Chem 7: 07/25/21 07:33 07/25/21 07:33 Labs: Abnormal Lab Results - Last 24 Hours (Table) 07/25/21 07/25/21 07/25/21 Range/Units 05:53 07:33 07:33 RBC 3.94 L (4.30-5.90) m/uL Hgb 11.5 L (13.0-17.5) gm/dL Hct 34.6 L (39.0-53.0) % RDW 17.0 H (11.5-15.5) % BUN 22 H (9-20) mg/dL Glucose 141 H (74-99) mg/dL POC Glucose (mg/dL) 147 H (75-99) mg/dL 07/25/21 07/25/21 07/25/21 Range/Units 07:45 11:54 16:54 RBC (4.30-5.90) m/uL Hgb (13.0-17.5) gm/dL Hct (39.0-53.0) % RDW (11.5-15.5) % BUN (9-20) mg/dL Glucose (74-99) mg/dL POC Glucose (mg/dL) 152 H 192 H 217 H (75-99) mg/dL 07/25/21 Range/Units 20:22 RBC (4.30-5.90) m/uL Hgb (13.0-17.5) gm/dL Hct (39.0-53.0) % RDW (11.5-15.5) % BUN (9-20) mg/dL Glucose (74-99) mg/dL POC Glucose (mg/dL) 240 H (75-99) mg/dL Microbiology - Last 24 Hours (Table) 07/21/21 10:09 Blood Culture - Preliminary Blood No Growth after 96 hours 07/23/21 07:54 Blood Culture - Preliminary Blood No Growth after 48 hours 07/22/21 05:44 Blood Culture - Preliminary Blood No Growth after 72 hours Assessment and Plan Assessment: Hypovolemic shock possible septic shock requiring multiple fluid boluses in the ER. Blood pressure improved. Group D Enterococcus bacteremia. Suspected endovascular source.. TTE negative for vegetations. CT of the abdomen pelvis Showed no signs of infective focus.. Consulted cardiology for TTE Generalized weakness and fatigue secondary to sepsis, dehydration and volume depletion. Improved now Possible bilateral pneumonia Acute kidney injury likely prerenal. Improved now Hyperglycemia with uncontrolled diabetes type 2 Lactic acidosis Hypertension Hyperlipidemia History of GI bleed History of CT History of cardiac valve replacement History of AICD placement Paroxysmal atrial fibrillation on anticoagulation with Eliquis Andrei artery disease with history of stent placement Procedures history of smoking DVT prophylaxis. Plan: Patient be continued on telemetry monitoring. Blood pressure improved with flu id boluses in the ER. Patient was on antibiotics in the form of ceftriaxone and azithromycin. Changed to Unasyn with blood cultures showing enterococcus bacteremia. 2-D echocardiogram was done to rule out any vegetations. TTE showed no evidence of vegetation. Repeat cultures have been negative.. CT of the abdominal pelvis was ordered to rule out abdominal etiology.Showed no signs of infective focus. Cardiology was consulted for INDIRA. Current with home medications including metoprolol, Eliquis and amiodarone and statins. Infectious disease is following. Encourage oral intake.. Prognosis is guarded at this time.
[2021-07-26] MEDS ORDERED: ERTAPENEM 1 GM in SODIUM CHLORIDE 0.9% 50 ML IVPB STA (14:32)
[2021-07-26 16:13] VITALS: BP 133/57; PULSE 64; RESP 17; TEMP 97.8
--- NOTE | 2021-07-26 17:44 | PN ---
PROGRESS NOTE DATE OF SERVICE: 07/26/2021 REASON FOR FOLLOWUP: Enterococcus faecalis bacteremia. INTERVAL HISTORY: Patient is afebrile. The patient is breathing comfortably. Patient denies having any chest pain, shortness of breath or cough. The patient denies any pain to the upper or lower back area. No nausea, no vomiting. No abdominal pain. Diarrhea has slowed down. PHYSICAL EXAMINATION: Blood pressure 122/65 with a pulse of 85. Temperature is 97.8. He is 98% on room air. General description is an elderly male up in the bed in no distress. Respiratory system: Unlabored breathing, clear to auscultation anteriorly. Heart S1, S2. Regular rate and rhythm. Abdomen soft. No tenderness. LABS: Hemoglobin is 11.5, white count of 4.9, creatinine is 1.11. DIAGNOSTIC IMPRESSION AND PLAN: Patient with admission to the hospital with sepsis and did have evidence of Enterococcus faecalis bacteremia. The patient did have extensive workup. A CT of abdomen and pelvis was negative. UA was negative as well. INDIRA is negative for any vegetation. In view of the overall presentation to the hospital with sepsis, will recommend another 10 days of IV Unasyn 3 g q.8 hours with close outpatient followup. Questions and concerns were answered. MMODL / IJN: [id number] /
== END 2021-07-26 16:42 | disposition home health service (06) | DRG 871 ==
LOC: EC 18:13 → 3SCARD 21:49
PROVIDERS: ADMIT Internal Medicine; ATTEND Internal Medicine
PROC: B246ZZ4 Ultrasonography of Right and Left Heart, Transesophageal (ICD-10-PCS; principal; 2021-07-26 07:30)
PROC: 05HF33Z Insertion of Infusion Device into Left Cephalic Vein, Percutaneous Approach (ICD-10-PCS; 2021-07-26 20:40)
DX: A41.81 Sepsis due to Enterococcus (principal); R57.1 Hypovolemic shock; J18.9 Pneumonia, unspecified organism; R65.21 Severe sepsis with septic shock; N17.9 Acute kidney failure, unspecified; E87.2 Acidosis; E78.5 Hyperlipidemia, unspecified; I10 Essential (primary) hypertension; K21.9 Gastro-esophageal reflux disease without esophagitis; I25.10 Atherosclerotic heart disease of native coronary artery without angina pectoris; E11.65 Type 2 diabetes mellitus with hyperglycemia; Z79.01 Long term (current) use of anticoagulants; Z79.4 Long term (current) use of insulin; I25.2 Old myocardial infarction; Z85.46 Personal history of malignant neoplasm of prostate; Z85.820 Personal history of malignant melanoma of skin; Z95.5 Presence of coronary angioplasty implant and graft; Z87.891 Personal history of nicotine dependence; Z83.3 Family history of diabetes mellitus; Z82.49 Family history of ischemic heart disease and other diseases of the circulatory system; I48.0 Paroxysmal atrial fibrillation; Z92.3 Personal history of irradiation; Z20.822 Contact with and (suspected) exposure to COVID-19; Z95.810 Presence of automatic (implantable) cardiac defibrillator; Z95.2 Presence of prosthetic heart valve; I25.5 Ischemic cardiomyopathy; E11.51 Type 2 diabetes mellitus with diabetic peripheral angiopathy without gangrene; E86.0 Dehydration; R19.7 Diarrhea, unspecified; J43.9 Emphysema, unspecified; Z87.01 Personal history of pneumonia (recurrent); Z79.899 Other long term (current) drug therapy
CPT/HCPCS: 36410; 36415; 71046; 74177; 76937; 80048; 80053; 81003; 82550; 83605; 83735; 84145; 84484; 85025; 86140; 87040; 87077; 87186; 87636; 93005; 93306; 93312; 93320; 93325; 96361; 96374; 99291

== ENCOUNTER → 2021-08-19 | Outpatient (CLI) | payer MEDICARE ==
[2021-08-19 19:13] LABS: Basophils # (A) 0.09 X 10*3/uL (0.00-0.10); Eosinophils % (A) 1.1 %; HCT 37.9 % (39.6-50.0); HGB 11.8 g/dL (13.0-17.0); Lymphocytes # (A) 1.44 X 10*3/uL (0.90-5.00); Lymphocytes % (A) 16.3 %; MCH 27.7 pg (27.0-32.0); MCHC 31.1 g/dL (32.0-37.0); Mean Platelet Volume 12.7 fL (9.5-12.2); Monocytes # (A) 0.76 X 10*3/uL (0.20-1.00); Monocytes % (A) 8.6 %; Neutrophils # (A) 6.42 X 10*3/uL (1.80-7.70); Neutrophils % (A) 72.4 %; Platelet Count 255 X 10*3/uL (140-440); RBC 4.26 X 10*6/uL (4.40-5.60); RDW 15.8 % (11.5-14.5); WBC 8.86 X 10*3/uL (4.50-10.00)
[2021-08-19 22:20] LABS: African American GFR (CKD) 37.5 (60.0-200.0); BUN/Creat Ratio 30.53 Ratio (12.00-20.00); C Reactive Protein <0.4 mg/dL (0.0-0.8); Calcium 9.3 mg/dL (8.7-10.3); Carbon Dioxide 17.1 mmol/L (21.6-31.8); Chloride 103 mmol/L (96-109); Glucose 253 mg/dL (70-110); Non-African American GFR(CKD) 32.3 (60.0-200.0); Potassium 4.7 mmol/L (3.5-5.5); Sodium 135 mmol/L (135-145)
== END | disposition home or self-care (01) ==
LOC: LABWHC1 12:44
PROVIDERS: ATTEND Internal Medicine Infectious Disease
DX: B99.9 Unspecified infectious disease (principal); B95.2 Enterococcus as the cause of diseases classified elsewhere
CPT/HCPCS: 36415; 80048; 85025; 86140; 87040

== ENCOUNTER → 2021-11-11 | Outpatient (CLI) | payer MEDICARE ==
--- NOTE | 2021-11-11 13:11 | US ---
EXAMINATION TYPE: US kidneys/renal and bladder DATE OF EXAM: 11/11/2021 COMPARISON: CT July 23, 2021 CLINICAL HISTORY: N18.30 STAGE 3 CHR KIDNEY DISEASE. Abnormal renal labs EXAM MEASUREMENTS: Right Kidney: 11.2 x 5.2 x 4.8 cm Left Kidney: 11.6 x 5.8 x 5.1 cm Right Kidney: Appeared wnl Left Kidney: Appeared wnl Bladder: wnl Bilateral Jets seen: Yes There is no evidence for hydronephrosis at this point in time. No nephrolithiasis is seen. No gabriella s are identified. The urinary bladder is satisfactorily distended. Bilateral ureteral jets are seen . IMPRESSION: No hydronephrosis seen bilaterally.
== END | disposition home or self-care (01) ==
LOC: RADUSWWP 12:23
PROVIDERS: ATTEND Internal Medicine
DX: N18.30 Chronic kidney disease, stage 3 unspecified (principal)
CPT/HCPCS: 76770

== ENCOUNTER 2022-01-30 15:26 | Inpatient (IN) | payer MEDICARE ==
[2022-01-30 15:38] LABS: Glucose,Whole Blood 409 mg/dL (75-99)
[2022-01-30 15:56] LABS: HCT 38.3 % (39.0-53.0); HGB 12.5 gm/dL (13.0-17.5); Hypochromasia Moderate; MCH 30.8 pg (25.0-35.0); MCHC 32.5 g/dL (31.0-37.0); MCV 94.6 fL (80.0-100.0); Mean Platelet Volume 10.8; Platelet Count 181 k/uL (150-450); RBC 4.05 m/uL (4.30-5.90); RDW 14.8 % (11.5-15.5)
[2022-01-30 16:05] LABS: Calcium 8.6 mg/dL (8.4-10.2); Potassium 4.5 mmol/L (3.5-5.1); Total Bilirubin 0.6 mg/dL (0.2-1.3); Total Protein 6.7 g/dL (6.3-8.2)
--- NOTE | 2022-01-30 16:10 | CT ---
EXAMINATION TYPE: CT brain wo con DATE OF EXAM: 01/30/2022 COMPARISON: CT dated 04/08/2021 HISTORY: cva CT DLP: 1181.2 mGycm Automated exposure control for dose reduction was used. TECHNIQUE: CT scan of the brain is performed without IV contrast administration. FINDINGS: Stable right high parietal convexity prominent extra-axial CSF spaces measuring up to 3.3 cm which co uld represent a focal volume loss versus an arachnoid cyst. This can be further confirmed by elective MRI of the brain. Brain volume loss changes, likely age-related. Mild bilateral cerebral white matte r chronic microvascular ischemic changes. Scattered arterial atherosclerotic calcifications. No acute intracranial hemorrhage or gross acute cortical infarct. No midline shift or herniation. Unr emarkable basal cisterns, sella and CP angles. No gross space-occupying lesion, vasogenic edema or ma ss effect. No gross orbital abnormality. Persistent left superior parietal scalp swelling and fat inf iltration, stable. Clear visualized paranasal sinuses and mastoid air cells. Osteopenia. IMPRESSION: No acute intracranial hemorrhage or gross acute cortical infarct. A small acute or hyperacute infarct cannot be excluded by this CT scan. Incidental findings as described above.
[2022-01-30 16:12] LABS: Prothrombin Time 10.9 sec (9.0-12.0)
--- NOTE | 2022-01-30 16:14 | XR ---
EXAMINATION TYPE: XR chest 2V DATE OF EXAM: 01/30/2022 COMPARISON: X-ray dated 07/21/2021 HISTORY: AMS, strokelike symptoms TECHNIQUE: Frontal and lateral views of the chest are obtained. FINDINGS: Slightly increased density of the right upper lung zone, this could be artifactual however underlying infiltration at that location cannot be excluded, please correlate clinically. Grossly unremarkable remainder of the lungs. No sizable pleural effusion or definite pneumothorax. Left upper chest wall triple lead pacemaker, un changed. Aortic valve stent. No gross cardiomegaly. Aortic atherosclerotic calcifications. Osteopenia . Degenerative changes of the thoracic spine. IMPRESSION: Right upper lung zone infiltration versus artifact, please correlate clinically. Other incidental fin dings as described above.
--- NOTE | 2022-01-30 16:34 | CT ---
EXAMINATION TYPE: CT angio head neck DATE OF EXAM: 01/30/2022 HISTORY: cva COMPARISON: Nonenhanced CT brain performed earlier same day CT DLP: 491.8 mGycm. Automated Exposure Control for Dose Reduction was Utilized. TECHNIQUE: CTA scan of the neck is performed with IV Contrast, patient injected with 65cc mL of Isov ue 370, axial images are obtained, coronal and sagittal reformatted images are reviewed. 3D reconstru cted images are created on an independent workstation and reviewed. FINDINGS: Carotid/Vascular Structures: Bovine aortic arch. Scattered arterial atherosclerotic calcifications. S evere stenosis of the left common carotid artery bifurcation extending to the proximal portion of the left internal carotid artery (about 80-90% stenosis) by a densely calcified atheromatous plaque yet patent distally. 50% stenosis of the proximal portion of the right internal carotid artery by a parti ally calcified atheromatous plaque yet patent distally. Otherwise normal caliber and enhancement of t he neck arteries and intracranial arteries without other significant stenosis, occlusion, dissection, aneurysm or AV malformation. Other: No intracranial abnormal enhancement. Multiple bilateral thyroid hypodensities, larger on the right side, please correlate with thyroid ultrasound results. Bilateral upper lung zone fibrotic bryson ges and paraseptal emphysema. Degenerative changes of the cervical spine. IMPRESSION: Severe stenosis of the left common carotid artery bifurcation and proximal portion of the left research program internship al carotid artery as described above. No other significant stenosis or occlusion of the major neck an d intracranial arteries. Other incidental findings as described above.
[2022-01-30 16:36] LABS: Eosinophils # (M) 0.06 k/uL (0-0.7); Lymphocytes # (M) 0.72 k/uL (1.0-4.8); Neutrophils # (M) 4.92 k/uL (1.3-7.7); Neutrophils % (M) 82 %; Nucleated Red Blood Cells 0 /100 WBC (0-0); Total Cells Counted 100
--- NOTE | 2022-01-30 17:23 | ED ---
Neuro HPI - General Chief Complaint: Neuro Symptoms/Deficit Stated Complaint: Stroke symptoms Time Seen by Provider: 01/30/22 15:30 Source: patient, EMS Mode of arrival: EMS Limitations: no limitations - History of Present Illness Is the patient presenting with stroke symptoms?: Yes Last Known Well Date: 01/30/22 Last Known Well Time: 15:05 Initial Comments: 81-year-old male past medical history of A. fib on eliquis, diabetes presents to the emergency department with stroke-like symptoms. States that around 3:05 PM today he was at home and had sudden onset of speech difficulty. Describes it as an expressive aphasia. He attempted to take a drink of water and it spilled f rom the right side of his lips. He also felt weakness in his right arm and leg. States that he has had chronic weakness to his right arm for which his primary care doctor has been aware of since September. He has received cortisone injections for the right upper extremity pain and weakness. States that the weakness was worse but the speech deficits are what really worried him. EMS was called by the time they arrived symptoms had resolved. Upon transfer to the hospital the patient was noted to have a high glucose in the 400s. He states he has been taking all of his medications as directed including his Eliquis. He denies previous history of stroke. No headaches or visual changes. No recent head trauma. No chest pain or abdominal pain. No other alleviating, precipitating or modifying factors - Related Data Home Medications: Home Medications Medication Instructions Recorded Confirmed gemfibroziL [Lopid] 600 mg PO BID 02/27/17 01/30/22 Ezetimibe 10 mg PO DAILY 11/04/19 01/30/22 Spironolactone 12.5 mg PO DAILY 11/04/19 01/30/22 Ferrous Sulfate [Iron (65 MG 325 mg PO BID 04/07/21 01/30/22 Elemental)] Metoprolol Succinate (ER) [Toprol 100 mg PO BID 04/07/21 01/30/22 XL] Amiodarone HCl [Pacerone] 200 mg PO DAILY 07/20/21 01/30/22 Insulin NPH Human Isophane 35 units SQ DAILY 07/20/21 01/30/22 [NovoLIN N] lisinopriL [Zestril] 2.5 mg PO DAILY 07/20/21 01/30/22 Empagliflozin [Jardiance] 25 mg PO DAILY 01/30/22 01/30/22 Previous Rx's Medication Instructions Recorded Pantoprazole Sodium [Protonix] 40 mg PO LAVONNE-LOUISE #30 tablet. 11/10/19 Apixaban [Eliquis] 2.5 mg PO BID #60 tablet 02/05/22 Aspirin 81 mg PO DAILY #30 02/05/22 Atorvastatin [Lipitor] 40 mg PO HS #30 tab 02/05/22 Clopidogrel [Plavix] 75 mg PO DAILY #30 tab 02/05/22 Allergies/Adverse Reactions: Allergies Allergy/AdvReac Type Severity Reaction Status Date / Time bismuth subsalicylate Allergy Severe ABD PAIN, Verified 01/30/22 16:13 [From Pepto-Bismol] N/V molasses Allergy Severe Nausea & Uncoded 01/30/22 15:33 Vomiting Review of Systems ROS Statement: Those systems with pertinent positive or pertinent negative responses have been documented in the HPI. ROS Other: All systems not noted in ROS Statement are negative. General Exam Limitations: no limitations General appearance: alert, in no apparent distress Head exam: Present: atraumatic, normocephalic, normal inspection Eye exam: Present: normal appearance, PERRL, EOMI. Absent: scleral icterus, conjunctival injection, periorbital swelling ENT exam: Present: normal exam, mucous membranes moist Neck exam: Present: normal inspection. Absent: tenderness, meningismus, lymphadenopathy Respiratory exam: Present: normal lung sounds bilaterally. Absent: respiratory distress, wheezes, rales, rhonchi, stridor Cardiovascular Exam: Present: regular rate, normal rhythm, normal heart sounds. Absent: systolic murmur, diastolic murmur, rubs, gallop, clicks GI/Abdominal exam: Present: soft, normal bowel sounds. Absent: distended, tenderness, guarding, rebound, rigid Extremities exam: Present: full ROM, normal capillary refill, other (strength 4 /5 RUE, all other extremities 5/5). Absent: tenderness, pedal edema, joint swelling, calf tenderness Back exam: Present: normal inspection Neurological exam: Present: alert, oriented X3, CN II-XII intact Psychiatric exam: Present: normal affect, normal mood Skin exam: Present: warm, dry, intact, normal color. Absent: rash Stroke MDM - Lab Data Result diagrams: 02/04/22 07:21 02/04/22 07:21 Lab Results 01/30/22 01/30/22 01/30/22 Range/Units 15:33 15:33 15:33 WBC 6.0 (3.8-10.6) k/uL RBC 4.05 L (4.30-5.90) m/uL Hgb 12.5 L (13.0-17.5) gm/dL Hct 38.3 L (39.0-53.0) % MCV 94.6 (80.0-100.0) fL MCH 30.8 (25.0-35.0) pg MCHC 32.5 (31.0-37.0) g/dL RDW 14.8 (11.5-15.5) % Plt Count 181 (150-450) k/uL MPV 10.8 Neutrophils % (Manual) 82 % Lymphocytes % (Manual) 12 % Monocytes % (Manual) 5 % Eosinophils % (Manual) 1 % Neutrophils # (Manual) 4.92 (1.3-7.7) k/uL Lymphocytes # (Manual) 0.72 L (1.0-4.8) k/uL Monocytes # (Manual) 0.30 (0-1.0) k/uL Eosinophils # (Manual) 0.06 (0-0.7) k/uL Nucleated RBCs 0 (0-0) /100 WBC Manual Slide Review Performed Hypochromasia Moderate PT 10.9 (9.0-12.0) sec INR 1.0 (<1.2) APTT 25.0 (22.0-30.0) sec Sodium 132 L (137-145) mmol/L Potassium 4.5 (3.5-5.1) mmol/L Chloride 101 (98-107) mmol/L Carbon Dioxide 19 L (22-30) mmol/L Anion Gap 12 mmol/L BUN 34 H (9-20) mg/dL Creatinine 1.51 H (0.66-1.25) mg/dL Est GFR (CKD-EPI)AfAm 49 (>60 ml/min/1.73 sqM) Est GFR (CKD-EPI)NonAf 43 (>60 ml/min/1.73 sqM) Glucose 402 H (74-99) mg/dL POC Glucose (mg/dL) (75-99) mg/dL POC Glu Retoucher Photoengraving ID Calcium 8.6 (8.4-10.2) mg/dL Total Bilirubin 0.6 (0.2-1.3) mg/dL AST 20 (17-59) U/L ALT 13 (4-49) U/L Alkaline Phosphatase 85 (38-126) U/L Troponin I (0.000-0.034) ng/mL Total Protein 6.7 (6.3-8.2) g/dL Albumin 4.0 (3.5-5.0) g/dL Triglycerides (0.00-149.00) mg/dL Cholesterol (0.00-200.00) mg/dL LDL Cholesterol, Calc (0.0-131.0) mg/dL VLDL Cholesterol, Calc (5.00-40.00) mg/dL HDL Cholesterol (40.00-60.00) mg/dL Cholesterol/HDL Ratio Ratio 01/30/22 01/30/22 01/30/22 Range/Units 15:33 15:34 22:03 WBC (3.8-10.6) k/uL RBC (4.30-5.90) m/uL Hgb (13.0-17.5) gm/dL Hct (39.0-53.0) % MCV (80.0-100.0) fL MCH (25.0-35.0) pg MCHC (31.0-37.0) g/dL RDW (11.5-15.5) % Plt Count (150-450) k/uL MPV Neutrophils % (Manual) % Lymphocytes % (Manual) % Monocytes % (Manual) % Eosinophils % (Manual) % Neutrophils # (Manual) (1.3-7.7) k/uL Lymphocytes # (Manual) (1.0-4.8) k/uL Monocytes # (Manual) (0-1.0) k/uL Eosinophils # (Manual) (0-0.7) k/uL Nucleated RBCs (0-0) /100 WBC Manual Slide Review Hypochromasia PT (9.0-12.0) sec INR (<1.2) APTT (22.0-30.0) sec Sodium (137-145) mmol/L Potassium (3.5-5.1) mmol/L Chloride (98-107) mmol/L Carbon Dioxide (22-30) mmol/L Anion Gap mmol/L BUN (9-20) mg/dL Creatinine (0.66-1.25) mg/dL Est GFR (CKD-EPI)AfAm (>60 ml/min/1.73 sqM) Est GFR (CKD-EPI)NonAf (>60 ml/min/1.73 sqM) Glucose (74-99) mg/dL POC Glucose (mg/dL) 409 H 262 H (75-99) mg/dL POC Glu Retoucher Photoengraving ID Mikel Hastingsta Russell Mally Calcium (8.4-10.2) mg/dL Total Bilirubin (0.2-1.3) mg/dL AST (17-59) U/L ALT (4-49) U/L Alkaline Phosphatase (38-126) U/L Troponin I <0.012 (0.000-0.034) ng/mL Total Protein (6.3-8.2) g/dL Albumin (3.5-5.0) g/dL Triglycerides (0.00-149.00) mg/dL Cholesterol (0.00-200.00) mg/dL LDL Cholesterol, Calc (0.0-131.0) mg/dL VLDL Cholesterol, Calc (5.00-40.00) mg/dL HDL Cholesterol (40.00-60.00) mg/dL Cholesterol/HDL Ratio Ratio 01/31/22 01/31/22 01/31/22 Range/Units 06:27 07:47 12:04 WBC (3.8-10.6) k/uL RBC (4.30-5.90) m/uL Hgb (13.0-17.5) gm/dL Hct (39.0-53.0) % MCV (80.0-100.0) fL MCH (25.0-35.0) pg MCHC (31.0-37.0) g/dL RDW (11.5-15.5) % Plt Count (150-450) k/uL MPV Neutrophils % (Manual) % Lymphocytes % (Manual) % Monocytes % (Manual) % Eosinophils % (Manual) % Neutrophils # (Manual) (1.3-7.7) k/uL Lymphocytes # (Manual) (1.0-4.8) k/uL Monocytes # (Manual) (0-1.0) k/uL Eosinophils # (Manual) (0-0.7) k/uL Nucleated RBCs (0-0) /100 WBC Manual Slide Review Hypochromasia PT (9.0-12.0) sec INR (<1.2) APTT (22.0-30.0) sec Sodium (137-145) mmol/L Potassium (3.5-5.1) mmol/L Chloride (98-107) mmol/L Carbon Dioxide (22-30) mmol/L Anion Gap mmol/L BUN (9-20) mg/dL Creatinine (0.66-1.25) mg/dL Est GFR (CKD-EPI)AfAm (>60 ml/min/1.73 sqM) Est GFR (CKD-EPI)NonAf (>60 ml/min/1.73 sqM) Glucose (74-99) mg/dL POC Glucose (mg/dL) 246 H 311 H (75-99) mg/dL POC Glu Retoucher Photoengraving ID Rhody, Dorina Rhody, Dorina Calcium (8.4-10.2) mg/dL Total Bilirubin (0.2-1.3) mg/dL AST (17-59) U/L ALT (4-49) U/L Alkaline Phosphatase (38-126) U/L Troponin I (0.000-0.034) ng/mL Total Protein (6.3-8.2) g/dL Albumin (3.5-5.0) g/dL Triglycerides 252.00 H (0.00-149.00) mg/dL Cholesterol 145.00 (0.00-200.00) mg/dL LDL Cholesterol, Calc 60.4 (0.0-131.0) mg/dL VLDL Cholesterol, Calc 50.40 H (5.00-40.00) mg/dL HDL Cholesterol 34.20 L (40.00-60.00) mg/dL Cholesterol/HDL Ratio 4.24 Ratio - Medical Decision Making Upon arrival patient is placed into room 1. A thorough history and physical exam was performed. IV access established laboratory studies were conducted. Patient was promptly taken over for a CT of his head as well as CT angiography of his head and neck. Laboratory studies are reviewed. Patient does have chronic renal insufficiency with a creatinine of 1.5. Glucose is high at 409. CT brain demonstrates a suspected arachnoid cyst measuring 3.[address] angiography demonstrates stenosis of the left common carotid artery bifurcation proximal portion of the left internal carotid. No other significant stenosis or occlusion. Results are discussed the patient. Continues to have an NIH of 0. Family states the patient has known carotid occlusion however during last evaluation was not a candidate for surgery. Did recommend admission for suspected TIA versus CVA. Patient did agree. Spoke with sound physicians who agree to admit the patient 01/30/22 18:38 EKG demonstrates a ventricular pacemaker which captures properly. Rate of 66. NE interval 137. QRS 127. QTC of 46. 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 HEART STENTS X3. Laser/Radiation Tx for Prosate CA. EXC Rt Upper Arm Melanoma, Basal Cell EXC FROM SCALP. PTCA 06/15/15, INDIRA 08/22/15. ABD AORTOGRAM W/ RUNOFF 12/10/15, EGD, colonoscopy with arteriovenous malformation. LEFT NECK BASAL CELL CA REMOVED Past Anesthesia/Blood Transfusion Reactions: No Reported Reaction Date of Last Stent Placement:: 1999 Type of Cardiac Device: AICD Device Placement Date:: 04/01/2016-[facility] [place]-(model [id number] pt) Past Psychological History: No Psychological Hx Reported Smoking Status: Former smoker Past Alcohol Use History: Rare Past Drug Use History: None Reported - Past Family History Father Family Medical History: Diabetes Mellitus, Myocardial Infarction ([place]) Additional Family Medical History / Comment(s): Father of a [place] at age 64yrs. Mother History Unknown: Yes Family Medical History: No Reported History Additional Family Medical History / Comment(s): Mother at age 68 yrs. Course Vital Signs 01/30/22 01/30/22 01/30/22 15:27 16:15 16:30 Temperature 97.8 F Pulse Rate 70 64 64 Respiratory 18 18 18 Rate Blood Pressure 116/72 124/70 107/47 O2 Sat by Pulse 98 98 97 Oximetry 01/30/22 01/30/22 17:00 18:00 Temperature Pulse Rate 64 63 Respiratory 18 18 Rate Blood Pressure 124/58 130/65 O2 Sat by Pulse 98 98 Oximetry Disposition Clinical Impression: Acute right-sided weakness, Transient cerebral ischemia, Carotid occlusion, left Disposition: ADMITTED IP TO THIS [facility] Condition: Stable Is patient prescribed a controlled substance at d/c from ED?: No Decision to Admit Reason: Admit from EC Decision Date: 01/30/22 Decision Time: 17:23
[2022-01-30] MEDS ORDERED: ASPIRIN 325 MG TAB PO STA (17:48)
[2022-01-30] MEDS ORDERED: ATORVASTATIN 40 MG TAB PO SCH (18:00)
[2022-01-30 22:05] LABS: Glucose,Whole Blood 262 mg/dL (75-99)
--- NOTE | 2022-01-31 02:27 | P.HPIM ---
History of Present Illness H&P Date: 01/30/22 Chief Complaint: aphasia 81 year old male with afib s/p pacemaker, on eliquis , DM patient comes in due to sudden onset difficulty with speech , he was resting doing nothing, when suddenly found out he is unable to talk normally . no other focal neuro deficits at that time, was around 3 PM , notified EMS upon their arrival , symptoms resolved, in the ED his NIH was 0 , he had CT brain , showed no acute pathology , and CTA head and neck, and showed severe stenosis in his internal carotids. patient was admitted for neuro evaluation he reports compliance with his meds, he takes eliquis for afib , denies any GI bleeding , denies any chest pain or trouble breathing , he has baseline weakness of right arm . blood work showed mild anemia , stable CKD . during my interview, he was asymptomatic , but with occasional difficulty finding words. Review of Systems Pertinent positives as noted in HPI. 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 X3. Laser/Radiation Tx for Prosate CA. EXC Rt Upper Arm Melanoma, Basal Cell EXC FROM SCALP. PTCA 06/15/15, INDIRA 08/22/15. ABD AORTOGRAM W/ RUNOFF 12/10/15, EGD, colonoscopy with arteriovenous malformation. LEFT NECK BASAL CELL CA REMOVED, heart valve replaced Past Anesthesia/Blood Transfusion Reactions: No Reported Reaction Date of Last Stent Placement:: 1999 Type of Cardiac Device: AICD Device Placement Date:: 04/01/2016-[employer] [place]-(model [id number] pt) Past Psychological History: No Psychological Hx Reported Additional Psychological History / Comment(s): . Smoking Status: Former smoker Past Alcohol Use History: Rare Additional Past Alcohol Use History / Comment(s): quit smoking in 1999 started age 16, smoked 2 ppd Past Drug Use History: None Reported - Past Family History Father Family Medical History: Diabetes Mellitus, Myocardial Infarction ([place]) Additional Family Medical History / Comment(s): Father of a [place] at age 64 yrs. Mother History Unknown: Yes Family Medical History: No Reported History Additional Family Medical History / Comment(s): Mother at age 68 yrs. Medications and Allergies Home Medications Medication Instructions Recorded Confirmed Type gemfibroziL [Lopid] 600 mg PO BID 02/27/17 01/30/22 History Ezetimibe 10 mg PO DAILY 11/04/19 01/30/22 History Rosuvastatin Calcium 40 mg PO HS 11/04/19 01/30/22 History Spironolactone 12.5 mg PO DAILY 11/04/19 01/30/22 History Furosemide [Lasix] 20 mg PO DAILY #30 tab 11/10/19 01/30/22 Rx Pantoprazole Sodium [Protonix] 40 mg [facility] #[facility] tablet. 11/10/19 01/30/22 Rx Apixaban [Eliquis] 5 mg PO DAILY 04/07/21 01/30/22 History Ferrous Sulfate [Iron (65 MG 325 mg PO BID 04/07/21 01/30/22 History Elemental)] Metoprolol Succinate (ER) [Toprol 100 mg PO BID 04/07/21 01/30/22 History XL] Amiodarone HCl [Pacerone] 200 mg PO DAILY 07/20/21 01/30/22 History Insulin NPH Human Isophane 35 units SQ DAILY 07/20/21 01/30/22 History [NovoLIN N] lisinopriL [Zestril] 2.5 mg PO DAILY 07/20/21 01/30/22 History Empagliflozin [Jardiance] 25 mg PO DAILY 01/30/22 01/30/22 History Allergies Allergy/AdvReac Type Severity Reaction Status Date / Time bismuth subsalicylate Allergy Severe ABD PAIN, Verified 01/30/22 16:13 [From Pepto-Bismol] N/V molasses Allergy Severe Nausea & Uncoded 01/30/22 15:33 Vomiting Physical Exam Vitals: Vital Signs Temp Pulse Pulse Resp BP BP Pulse Ox 01/30/22 21:24 97.7 F 53 L 18 144/63 96 01/30/22 21:00 64 18 103/53 95 01/30/22 19:50 97.9 F 64 18 133/60 98 01/30/22 19:47 97.9 F 64 18 133/60 98 01/30/22 19:46 97.9 F 64 18 133/60 98 01/30/22 19:00 61 18 113/61 97 01/30/22 18:00 63 18 130/65 98 01/30/22 17:00 64 18 124/58 98 01/30/22 16:30 64 18 107/47 97 01/30/22 16:15 64 18 124/70 98 01/30/22 15:27 97.8 F 70 18 116/72 98 Intake and Output 01/30/22 01/30/22 01/31/22 14:59 22:59 06:59 Other: # Voids 1 Weight 92.533 kg Constitutional: No acute distress, conversant, pleasant Eyes: Anicteric sclerae, moist conjunctiva, Pupils equal round reactive to light ENMT: NC/AT Oropharynx clear, no erythema, or exudates Neck: Supple, no masses, or JVD No carotid bruits No thyromegaly Lungs: Clear to auscultation Clear to percussion Normal respiratory effort, no accessory muscle use Cardiovascular: Heart regular in rate and rhythm, No murmurs, gallops, or rubs No peripheral edema Abdominal: Soft Nontender, no guarding, rebound or rigidity Abdomen moving with respiration Normoactive bowel sounds No hepatomegaly, No splenomegaly No palpable mass No abdominal wall hernia noted Skin: Normal temperature, tone, texture, turgor No induration No subcutaneous nodules No rash, lesions No ulcers Extremities: No digital cyanosis No clubbing Pedal pulses intact and symmetrical Radial pulses intact and symmetrical No calf tenderness Psychiatric: Alert and oriented to person, place and time Appropriate affect fair judgement Neuro Muscles Strength 5/5 in bialteral upper extremities with right upper extremity proximal weakness (chronic ) , and 4/5 bilateral lower extremities Sensation to light touch grossly present throughout Cranial nerves II-XII grossly intact No focal sensory deficits Lymphatics: no palpable cervical or supraclavicular , or inguinal lymph nodes Results CBC & Chem 7: 01/30/22 15:33 01/30/22 15:33 Labs: Abnormal Lab Results - Last 24 Hours (Table) 01/30/22 01/30/22 01/30/22 Range/Units 15:33 15:33 15:34 RBC 4.05 L (4.30-5.90) m/uL Hgb 12.5 L (13.0-17.5) gm/dL Hct 38.3 L (39.0-53.0) % Lymphocytes # (Manual) 0.72 L (1.0-4.8) k/uL Sodium 132 L (137-145) mmol/L Carbon Dioxide 19 L (22-30) mmol/L BUN 34 H (9-20) mg/dL Creatinine 1.51 H (0.66-1.25) mg/dL Glucose 402 H (74-99) mg/dL POC Glucose (mg/dL) 409 H (75-99) mg/dL 01/30/22 Range/Units 22:03 RBC (4.30-5.90) m/uL Hgb (13.0-17.5) gm/dL Hct (39.0-53.0) % Lymphocytes # (Manual) (1.0-4.8) k/uL Sodium (137-145) mmol/L Carbon Dioxide (22-30) mmol/L BUN (9-20) mg/dL Creatinine (0.66-1.25) mg/dL Glucose (74-99) mg/dL POC Glucose (mg/dL) 262 H (75-99) mg/dL Thrombosis Risk Factor Assmnt - Choose All That Apply Any of the Below Risk Factors Present?: Yes Each Factor Represents 1 point: Obesity (BMI >25) Other Risk Factors: Yes Each Risk Factor Represents 3 Points: Age 75 years or older Thrombosis Risk Factor Assessment Total Risk Factor Score: 4 Thrombosis Risk Factor Assessment Level: Moderate Risk Assessment and Plan Assessment: TIA , aphasia resolved, but still having occasional difficulty finding words, which is new neuro checks neurology consultation CT of brain no acute pathology CTA of head and neck , severe carotid stenosis cardiology consult ASA, statin check echocardiogram fall precaution s PT eval permissive hypertension 24 hours hold eliquis for afib until cleared by neuro afib s/p pacemaker, on eliquis hold eliquis 24-48 hrs DM , with hyperglycemia insulin sliding scale chronic conditions mild anemia , denies any GI bleeding , continue to monitor CKD , stable full code mechanical DVT PPX anticipated length of stay < 2 midnights
[2022-01-31 07:48] LABS: Glucose,Whole Blood 246 mg/dL (75-99)
[2022-01-31] MEDS: EZETIMIBE 10 MG TAB PO SCH (08:11)
[2022-01-31] MEDS: SPIRONOLACTONE 25 MG TAB PO SCH (08:11)
[2022-01-31] MEDS: PANTOPRAZOLE 40 MG TABLET PO SCH (08:11)
--- NOTE | 2022-01-31 08:25 | ECHOF ---
Referral Reason:stroke MEASUREMENTS -------- HEIGHT: 177.8 cm WEIGHT: 92.5 kg BP: IVSd: 1.4 cm (0.6 - 1.1) LVIDd: 4.0 cm (3.9 - 5.3) LVPWd: 1.5 cm (0.6 - 1.1) IVSs: 2.0 cm LVIDs: 3.2 cm LVPWs: 1.7 cm Ao Diam: 2.5 cm (2.0 - 3.7) AV Cusp: 2.0 cm (1.5 - 2.6) LA Diam: 4.5 cm (2.7 - 3.8) MV EXCURSION: 10.933 mm (> 18.000) MV EF SLOPE: 50 mm/s (70 - 150) EPSS: 4.0 cm MV E Link: 0.96 m/s MV DecT: 269 ms MV A Link: 1.55 m/s MV E/A Ratio: 0.62 AV maxP.16 mmHg AV meanP.18 mmHg RAP: 5.00 mmHg RVSP: 9.79 mmHg FINDINGS -------- Paced rhythm. This was a technically difficult study with suboptimal views. The left ventricular size is normal. There is moderate concentric left ventricular hypertrophy. O verall left ventricular systolic function is moderately impaired with, an EF between 35 - 40 %. The right ventricle is normal in size. The left atrial size is normal. The right atrial size is normal. 5.0mg of Lumason was utilized for enhancement of images Peak/mean gradient across the Aortic Valve is 6.16mmHg / 3.18mmHg. Normally functioning bioprosthet ic valve. The mitral valve leaflets are mildly thickened. Mild mitral annular calcification present. There is trace mitral regurgitation. [id number] mitral stenosis. The tricuspid valve appears structurally normal. Mild tricuspid regurgitation present. Right vent ricular systolic pressure is normal at < 35 mmHg. There is no pulmonic regurgitation present. The aortic root size is normal. IVC Not well visulized. There is no pericardial effusion. CONCLUSIONS -------- 1. Paced rhythm. 2. The left ventricular size is normal. 3. There is moderate concentric left ventricular hypertrophy. 4. Overall left ventricular systolic function is moderately impaired with, an EF between 35 - 40 %. 5. Peak/mean gradient across the Aortic Valve is 6.16mmHg / 3.18mmHg. 6. Normally functioning bioprosthetic valve. 7. The mitral valve leaflets are mildly thickened. 8. Mild mitral annular calcification present. 9. There is trace mitral regurgitation. 10. [id number] mitral stenosis. 11. Mild tricuspid regurgitation present. 12. There is no pericardial effusion. INFORMATICS SCIENTIST: Michelle Coleman RDCS
[2022-01-31] MEDS ORDERED: ASPIRIN 325 MG TAB PO SCH (09:00)
[2022-01-31] MEDS: APIXABAN 5 MG TAB PO SCH ×2 (10:01→20:14)
[2022-01-31] MEDS: AMIODARONE 200 MG TAB PO SCH (10:02)
[2022-01-31] MEDS: METOPROLOL SUCCINATE (ER) 100 MG TAB.ER.24H PO SCH ×2 (10:02→20:14)
--- NOTE | 2022-01-31 10:17 | CONS ---
CONSULTATION HISTORY OF PRESENT ILLNESS: Christiano Kaye is an 81-year-old gentleman with a history of CAD, prior PCI, he also has history of aortic valve replacement and has ejection fraction in the 35% range. He came into the hospital with complaints of a sudden onset of difficulties with speech and also he could not focus. After arrival, his symptoms completely resolved. This was like what seems to be a TIA. CT scan of the head did not show any acute pathology and CT angiography revealed severe stenosis involving the left common carotid artery at the bifurcation and also the proximal portion of left internal carotid artery. I am seeing him mainly from a cardiac standpoint. In view of the TIA and considering his overall comorbid conditions and high risk, I am suggesting that he should have possible intervention of the carotid disease by stenting by Dr. Coto and I will therefore request him to see the patient. The patient has a history of CAD, prior PCI to RCA and circumflex, previous aortic valve replacement by percutaneous approach and also ICD. At the time of my evaluation, his speech seems to have improved. He is actually feeling better. Remains hemodynamically stable and his blood pressure is also good at 120/70 with a heart rate of 64 beats per minute. EKG revealed a sinus mechanism with atrial sense and ventricular paced rhythm. PAST MEDICAL HISTORY: 1. Remarkable for CAD with prior PCI. 2. Ischemic cardiomyopathy with ICD. 3. Status post aortic valve replacement by percutaneous approach. 4. Stable chronic kidney disease. 5. Diabetes. 6. Hypertension. 7. Hyperlipidemia. MEDICATIONS: Medications at home include: Amiodarone, insulin, lisinopril, Jardiance, apixaban 5 mg b.i.d., Lasix 20 mg daily and also takes Rosuvastatin 40 mg daily and Lopid 600 mg b.i.d., Aldactone 12.5 mg daily. PHYSICAL EXAMINATION: On examination, blood pressure is 120/70, pulse rate is about 64. HEENT unremarkable. Fundus was not examined by me. NECK is supple. There is no JVD. I cannot hear any significant bruit in the carotid artery. HEART exam reveals S1, S2 with a short systolic murmur at the base. Second heart sound is preserved. LUNGS revealed decent air entry. ABDOMEN: Soft. Lower EXTREMITIES reveal diminished pulses. CENTRAL NERVOUS SYSTEM: No motor deficits and speech is improving. IMPRESSION: 1. Acute transient ischemic attack with severe left common carotid and internal carotid stenosis in a bovine arch. 2. Hypertension. 3. Type 2 diabetes. 4. Coronary artery disease with prior myocardial infarction and PCI of RCA. 5. History of aortic valve replacement by percutaneous approach. RECOMMENDATIONS: I will obtain another CT scan tomorrow morning. I will await further input from Neurology. Dr. Coto will see the patient and consider performing a carotid stenting on Thursday. His Eliquis will be held from tomorrow. Discussed my thoughts in detail with the patient. Thank you very much for the consult. MMODL / IJN: [id number] /
[2022-01-31 12:05] LABS: Glucose,Whole Blood 311 mg/dL (75-99)
[2022-01-31 12:08] LABS: Chol/HDL Ratio 4.24 Ratio; LDL Cholesterol,Calculated 60.4 mg/dL (0.0-131.0)
--- NOTE | 2022-01-31 13:12 | P.PN ---
Subjective Progress Note Date: 01/31/22 Principal diagnosis: slurred speech Doing well. Still having some difficulties with speech. However it is better today, states that it keeps improving. Objective - Vital Signs Vital signs: Vital Signs Temp 97.8 F 01/31/22 07:00 Pulse 64 01/31/22 08:00 Resp 16 01/31/22 08:00 BP 113/63 01/31/22 07:00 Pulse Ox 99 01/31/22 07:00 Intake & Output 01/30/22 01/31/22 01/31/22 18:59 06:59 18:59 Output Total 800 Balance -800 Weight 92.533 kg 92.533 kg Output: Urine 800 Other: Voiding Method Urinal # Voids 1 - Exam Constitutional: No acute distress, conversant, pleasant Eyes:Anicteric sclerae, moist conjunctiva, no lid-lag, PERRLA, ENMT: Oropharynx clear, no erythema, exudates Neck: Supple, FROM, no masses, or JVD, No carotid bruits, No thyromegaly Lungs: Clear to auscultation, Clear to percussion, Normal respiratory effort, no accessory muscle use Cardiovascular: Heart regular in rate and rhythm, No murmurs, gallops, or rubs, No peripheral edema Abdominal: Soft, Nontender, no guarding, rebound or rigidity, Normoactive bowel sounds, No hepatomegaly, No splenomegaly, No palpable mass Skin: Normal temperature, tone, texture, turgor, no induration, No subcutaneous nodules, No rash, lesions, No ulcers Extremities: No digital cyanosis, No clubbing, Pedal pulses intact and symmetrical, Radial pulses intact and symmetrical, No calf tenderness Psychiatric: Alert and oriented to person, place and time, appropriate affect, intact judgement Neuro: Muscles Strength 5/5 in all 4 extremities, Sensation to light touch grossly present throughout, Cranial nerves II-XII grossly intact, no focal sensory deficits - Labs CBC & Chem 7: 01/30/22 15:33 01/30/22 15:33 Labs: Abnormal Lab Results - Last 24 Hours (Table) 01/30/22 01/30/22 01/30/22 Range/Units 15:33 15:33 15:34 RBC 4.05 L (4.30-5.90) m/uL Hgb 12.5 L (13.0-17.5) gm/dL Hct 38.3 L (39.0-53.0) % Lymphocytes # (Manual) 0.72 L (1.0-4.8) k/uL Sodium 132 L (137-145) mmol/L Carbon Dioxide 19 L (22-30) mmol/L BUN 34 H (9-20) mg/dL Creatinine 1.51 H (0.66-1.25) mg/dL Glucose 402 H (74-99) mg/dL POC Glucose (mg/dL) 409 H (75-99) mg/dL Triglycerides (0.00-149.00) mg/dL VLDL Cholesterol, Calc (5.00-40.00) mg/dL HDL Cholesterol (40.00-60.00) mg/dL 01/30/22 01/31/22 01/31/22 Range/Units 22:03 06:27 07:47 RBC (4.30-5.90) m/uL Hgb (13.0-17.5) gm/dL Hct (39.0-53.0) % Lymphocytes # (Manual) (1.0-4.8) k/uL Sodium (137-145) mmol/L Carbon Dioxide (22-30) mmol/L BUN (9-20) mg/dL Creatinine (0.66-1.25) mg/dL Glucose (74-99) mg/dL POC Glucose (mg/dL) 262 H 246 H (75-99) mg/dL Triglycerides 252.00 H (0.00-149.00) mg/dL VLDL Cholesterol, Calc 50.40 H (5.00-40.00) mg/dL HDL Cholesterol 34.20 L (40.00-60.00) mg/dL 01/31/22 Range/Units 12:04 RBC (4.30-5.90) m/uL Hgb (13.0-17.5) gm/dL Hct (39.0-53.0) % Lymphocytes # (Manual) (1.0-4.8) k/uL Sodium (137-145) mmol/L Carbon Dioxide (22-30) mmol/L BUN (9-20) mg/dL Creatinine (0.66-1.25) mg/dL Glucose (74-99) mg/dL POC Glucose (mg/dL) 311 H (75-99) mg/dL Triglycerides (0.00-149.00) mg/dL VLDL Cholesterol, Calc (5.00-40.00) mg/dL HDL Cholesterol (40.00-60.00) mg/dL Assessment and Plan Plan: TIA , aphasia resolved, but still having occasional difficulty finding words, which is new neuro checks neurology consultation CT of brain no acute pathology CTA of head and neck , severe carotid stenosis on the left cardiology consulted, planning for carotid stent on Thursday, hold eliquis ASA, statin Echocardiogram showing known low EF at 35-40%, moderate concentric LVH and mild to moderate MS afib s/p pacemaker, on eliquis hold eliquis DM , with hyperglycemia insulin sliding scale chronic conditions mild anemia , denies any GI bleeding , continue to monitor CKD , stable full code mechanical DVT PPX Change to inpatient as he has newly found carotid stenosis requiring surgical intervention.
[2022-01-31] MEDS: INSULIN DETEMIR (LEVEMIR) 100 UNIT/ML SYR SQ SCH (14:47)
[2022-01-31 17:16] LABS: Glucose,Whole Blood 369 mg/dL (75-99)
[2022-01-31] MEDS: INSULIN ASPART (NovoLOG) 100 UNIT/ML VIAL SQ SCH ×2 (17:53→20:14)
[2022-01-31 20:10] LABS: Glucose,Whole Blood 353 mg/dL (75-99)
[2022-01-31] MEDS: ATORVASTATIN 80 MG TAB PO SCH (20:14)
[2022-01-31] MEDS: FERROUS SULFATE 325 MG TAB PO SCH (20:14)
--- NOTE | 2022-01-31 20:20 | P.CNNES ---
History of Present Illness Consult date: 01/31/22 Requesting physician: Kaylie Ivey Reason for Consult: acute transient speech deficit, possible tia History of Present Illness: Patient is a 81-year-old right-handed male came to the hospital by ambulance yesterday at 3:26 PM. EMS flow sheet not available in the chart. Patient states that yesterday afternoon at around 3-4 PM he became very sleepy, lost speech, and became very weak, couldn't get out of chair. There was no facial droop noticed. He tried to drink water, but he started drooling out of the right side of the mouth. His called the ambulance and was brought to the hospital. Patient states that his weakness has improved, but he still has weakness in the legs, as he is not walking as good. His speech has much improved, but it is still slightly slurred. He has trouble forming words. He knows the words to say, but don't come out right. His tongue doesn't want to work the way he wants. Patient states that his right side has been weak even before this event. Vital signs on arrival blood pressure 116/72, pulse is 70, temperature 97.8. Blood test shows normal WBC hemoglobin 12.5 platelets 181. PT/PTT normal. Sodium 132 potassium 4.5, BUN 34, creatinine 1.51. Hepatic panel is normal. Patient's last hemoglobin A1c 11.6 on 11/22/2020. Patient's lipid panel was also abnormal with cholesterol 178, LDL 76.2, HDL 41.7 and triglycerides 248. B12 429, folate 10.6. TSH is normal 2.91. CT head showed no acute inferior hemorrhage or gross acute cortical infarct. CTA of head and neck revealed severe stenosis of the left common carotid artery bifurcation and proximal portion of the left ICA. Patient's home medications include Lopid 600 mg twice a day, rosuvastatin 40 mg, Zetia 10 mg, Lasix, Eliquis 5 mg daily, iron, metoprolol 100 mg twice a day lis inopril, insulin, amiodarone and Jardiance. Patient was not taking any antiplatelet medication at home. Patient has diabetes for 10 years. Patient has a pacemaker. He has atrial fibrillation, on anticoagulation with Eliquis. Patient has smoked 3 packs per day since age 17, quit in 1999. He has hypertension. 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 He has pins and needles sensation from toes up to the ankles and also involves middle 3 fingers of both hands. Patient has been seen by myself on 04/08/2021 for a fall due to tripping. His computed tomography scan of head was normal at that time. Review of Systems As mentioned above in detail. All other 14 point review of systems reviewed and unremarkable. Past Medical History Past Medical History: Cancer, Diabetes Mellitus, GERD/Reflux, GI Bleed, Hyperlipidemia, Hypertension, Myocardial Infarction (VT), Prostate Disorder, Skin Disorder, Vascular Disorder Additional Past Medical History / Comment(s): HX PROSTATE CA with radiation and laser sx, & Basal Cell and Melanoma microcytic iron deficiency anemia, duodenitis Last Myocardial Infarction Date:: 1999 History of Any Multi-Drug Resistant Organisms: None Reported Past Surgical History: Adenoidectomy, AICD, Cardiac Valve Replacement, Heart Catheterization, Heart Catheterization With Stent, Tonsillectomy Additional Past Surgical History / Comment(s): 12/12/15 R fempop PTCA with stent X2.Other surgical hx 09/2015 [place] [facility] [place] ST[place]3. Laser/Radiation Tx for Prosate CA. EXC Rt Upper Arm Melanoma, Basal Cell EXC FROM SCALP. PTCA 06/15/15, INDIRA 08/22/15. ABD AORTOGRAM W/ RUNOFF 12/10/15, EGD, colonoscopy with arteriovenous malformation. LEFT NECK BASAL CELL CA REMOVED, heart valve replaced Past Anesthesia/Blood Transfusion Reactions: No Reported Reaction Date of Last Stent Placement:: 1999 Type of Cardiac Device: AICD Device Placement Date:: 04/01/2016-[facility] [place]-(model [id number] pt) Past Psychological History: No Psychological Hx Reported Additional Psychological History / Comment(s): . Smoking Status: Former smoker Past Alcohol Use History: Rare Additional Past Alcohol Use History / Comment(s): quit smoking in 1999 started age 16, smoked 2 ppd Past Drug Use History: None Reported - Past Family History Father Family Medical History: Diabetes Mellitus, Myocardial Infarction (VT) Additional Family Medical History / Comment(s): Father of a VT at age 64yrs. Mother History Unknown: Yes Family Medical History: No Reported History Additional Family Medical History / Comment(s): Mother at age 68 yrs. Medications and Allergies Home Medications Medication Instructions Recorded Confirmed Type gemfibroziL [Lopid] 600 mg PO BID 02/27/17 01/30/22 History Ezetimibe 10 mg PO DAILY 11/04/19 01/30/22 History Rosuvastatin Calcium 40 mg PO HS 11/04/19 01/30/22 History Spironolactone 12.5 mg PO DAILY 11/04/19 01/30/22 History Furosemide [Lasix] 20 mg PO DAILY #30 tab 11/10/19 01/30/22 Rx Pantoprazole Sodium [Protonix] 40 mg PO AC-BRKFST #30 tablet. 11/10/19 01/30/22 Rx Apixaban [Eliquis] 5 mg PO DAILY 04/07/21 01/30/22 History Ferrous Sulfate [Iron (65 MG 325 mg PO BID 04/07/21 01/30/22 History Elemental)] Metoprolol Succinate (ER) [Toprol 100 mg PO BID 04/07/21 01/30/22 History XL] Amiodarone HCl [Pacerone] 200 mg PO DAILY 07/20/21 01/30/22 History Insulin NPH Human Isophane 35 units SQ DAILY 07/20/21 01/30/22 History [NovoLIN N] lisinopriL [Zestril] 2.5 mg PO DAILY 07/20/21 01/30/22 History Empagliflozin [Jardiance] 25 mg PO DAILY 01/30/22 01/30/22 History Allergies Allergy/AdvReac Type Severity Reaction Status Date / Time bismuth subsalicylate Allergy Severe ABD PAIN, Verified 01/30/22 16:13 [From Pepto-Bismol] N/V molasses Allergy Severe Nausea & Uncoded 01/30/22 15:33 Vomiting Physical Examination - Vital Signs Vital Signs: Vital Signs Temp Pulse Pulse Resp BP BP Pulse Ox 01/31/22 08:00 64 16 01/31/22 07:00 97.8 F 64 16 113/63 99 01/31/22 03:19 98.0 F 60 15 118/63 98 01/30/22 21:24 97.7 F 53 L 18 144/63 96 01/30/22 21:00 64 18 103/53 95 01/30/22 19:50 97.9 F 64 18 133/60 98 01/30/22 19:47 97.9 F 64 18 133/60 98 01/30/22 19:46 97.9 F 64 18 133/60 98 01/30/22 19:00 61 18 113/61 97 01/30/22 18:00 63 18 130/65 98 01/30/22 17:00 64 18 124/58 98 01/30/22 16:30 64 18 107/47 97 01/30/22 16:15 64 18 124/70 98 01/30/22 15:27 97.8 F 70 18 116/72 98 Intake and Output 01/30/22 01/31/22 01/31/22 22:59 06:59 14:59 Output Total 800 Balance -800 Output: Urine 800 Other: Voiding Method Urinal # Voids 1 Weight 92.533 kg Patient is an elderly male, very pleasant, in no acute distress. Patient is alert awake oriented to time place and person. Speech is mildly dysarthric, but no aphasia. Patient can name and repeat very well. Comprehension is perfectly intact. Attention, concentration and fund of knowledge is adequate. On cranial examination, pupils are equal, round and reacting to light, visual roman are full on confrontation, extraocular muscles are intact with no nystagmus. Face is symmetric, tongue protrudes to the midline. Palatal elevation and sensation normal, hearing and shoulder shrug normal, facial sensation normal. Shoulder shrug normal. On muscle strength testing, there is no pronator drift and the strength is normal in arms distally and proximally, except the right deltoid which is weak from shoulder issue at the strength of 2/5. In the lower extremities the strength is normal in the hip flexion, knee extension and adduction and abductio n bilaterally. Ankle dorsiflexion is 4-on the right, 5 on the left (patient believes is chronic, ? related to diabetes). Deep tendon reflexes are diminished and plantars downgoing. Sensory to touch is equal with no neglect on double simultaneous stimulation. Cerebellar function showed no ataxia for [id number] testing. No dysdiadochokinesia. Tone and bulk of muscles normal. Gait not checked. On general examination, there is no definitive carotid bruit or murmur, S1-S2 audible. Abdomen is soft nontender. Chest is clear. Peripheral pulses are diminished. No edema. Results - Laboratory Findings CBC and BMP: 01/30/22 15:33 01/30/22 15:33 Abnormal Lab Findings: Abnormal Labs 01/30/22 01/30/22 01/30/22 15:33 15:33 15:34 RBC 4.05 L Hgb 12.5 L Hct 38.3 L Lymphocytes # (Manual) 0.72 L Sodium 132 L Carbon Dioxide 19 L BUN 34 H Creatinine 1.51 H Glucose 402 H POC Glucose (mg/dL) 409 H 01/30/22 01/31/22 22:03 07:47 RBC Hgb Hct Lymphocytes # (Manual) Sodium Carbon Dioxide BUN Creatinine Glucose POC Glucose (mg/dL) 262 H 246 H Assessment and Plan Assessment: * Probable acute stroke vs TIA. Small stroke more likely, as patient still has slightly slurred speech. * Left ICA stenosis 80-90% per CTA, most likely symptomatic. * Atrial fibrillation on anticoagulation * Pacemaker * X tobacco use * CAD * Diabetes Plan: * Patient has presented with acute stroke/TIA symptoms. Patient was not a candidate for TPA, as he was on Eliquis. * CTA of head and neck revealed severe stenosis (about 80-90%) of the left commo n carotid artery bifurcation and proximal portion of the left ICA. No other significant stenosis or occlusion of the major neck or intracranial arteries. * Patient has received aspirin 325 mg in the ER, continue aspirin 81 mg daily. * Cardiology on board. Dr. Rodriguez planning for left ICA stenting on 02/03/2022. As per cardiology note, Eliquis will be on hold from Thursday, 2 days prior to surgery. I would suggest bridging with Lovenox, or heparin. * 2-D echo revealed paced rhythm. Normal left ventricular size. Moderate concentric LVH. Left ventricle systolic function is moderately impaired with EF between 35-40%. Normally functioning bioprosthetic valve. Mitral valve leaflets are mildly thickened. * Hemoglobin A1c * Lipid panel revealed cholesterol 145, LDL 60, HDL 34 and triglycerides 252. Continue Lipitor 80 mg. * Dr. Zambrano will cover neurology service over the weekend.
[2022-02-01 07:41] LABS: Glucose,Whole Blood 209 mg/dL (75-99)
--- NOTE | 2022-02-01 07:45 | CT ---
EXAMINATION TYPE: CT brain wo con DATE OF EXAM: 02/01/2022 COMPARISON: 01/30/2022 HISTORY: TIA, r/o hemorrhage CT DLP: 995.5 mGycm Automated exposure control for dose reduction was used. FINDINGS: The ventricles, basal cisterns and sulci over the convexities are moderately enlarged consistent with moderate atrophy but not inappropriate for the patient's age. There is no acute intra or extra-axial hemorrhage. There is no abnormal density throughout the brain parenchyma. There is no mass effect or shift of the midline structures. The paranasal sinuses and mastoid air cells are well aerated. The intraorbital contents are normal an d symmetric. The calvarium is intact. The posterior fossa is grossly normal IMPRESSION: NO ACUTE BLEED OR MASS EFFECT AND NO INTERVAL CHANGE compared to head CT dated 01/31/2020
[2022-02-01] MEDS: AMIODARONE 200 MG TAB PO SCH (08:35)
[2022-02-01] MEDS: EZETIMIBE 10 MG TAB PO SCH (08:35)
[2022-02-01] MEDS: PANTOPRAZOLE 40 MG TABLET PO SCH (08:35)
[2022-02-01] MEDS: METOPROLOL SUCCINATE (ER) 100 MG TAB.ER.24H PO SCH ×2 (08:35→19:31)
[2022-02-01] MEDS: INSULIN DETEMIR (LEVEMIR) 100 UNIT/ML SYR SQ SCH (08:35)
[2022-02-01] MEDS: FERROUS SULFATE 325 MG TAB PO SCH ×2 (08:35→19:30)
[2022-02-01] MEDS: INSULIN ASPART (NovoLOG) 100 UNIT/ML VIAL SQ SCH ×5 (08:35→19:30)
[2022-02-01] MEDS: SPIRONOLACTONE 25 MG TAB PO SCH (08:35)
[2022-02-01 08:38] LABS: Basophils # (A) 0.04 X 10*3/uL (0.00-0.10); Basophils % (A) 0.6 %; Eosinophils # (A) 0.07 X 10*3/uL (0.04-0.35); HCT 34.3 % (39.6-50.0); HGB 10.8 g/dL (13.0-17.0); Immature Grans, Automated 0.3 %; Lymphocytes # (A) 0.95 X 10*3/uL (0.90-5.00); Lymphocytes % (A) 13.7 %; MCH 29.3 pg (27.0-32.0); MCHC 31.5 g/dL (32.0-37.0); MCV 93.2 fL (80.0-97.0); Mean Platelet Volume 12.8 fL (9.5-12.2); Monocytes # (A) 0.95 X 10*3/uL (0.20-1.00); Monocytes % (A) 13.7 %; NRBC Per 100 WBC 0 /100 WBCS (0.0-0.0); Neutrophils # (A) 4.91 X 10*3/uL (1.80-7.70); Neutrophils % (A) 70.7 %; Platelet Count 165 X 10*3/uL (140-440); RBC 3.68 X 10*6/uL (4.40-5.60); RDW 14.4 % (11.5-14.5); WBC 6.94 X 10*3/uL (4.50-10.00)
[2022-02-01 08:51] LABS: African American GFR (CKD) 58.9 (60.0-200.0); Anion Gap 11.2 mmol/L (10.00-18.00); BUN/Creat Ratio 24.69 Ratio (12.00-20.00); Blood Urea Nitrogen 32.1 mg/dL (9.0-27.0); Carbon Dioxide 23.8 mmol/L (20.0-27.5); Magnesium 2.5 mg/dL (1.5-2.4); Non-African American GFR(CKD) 50.8 (60.0-200.0); Potassium 4.7 mmol/L (3.5-5.5)
[2022-02-01 10:24] VITALS: BMI 27.6
--- NOTE | 2022-02-01 10:41 | P.PN ---
Subjective Progress Note Date: 02/01/22 This is a pleasant 81-year-old gentleman with a history of CAD, prior PCI, aortic valve replacement, cardiomyopathy with an ejection fraction of 35-40%, status post AICD. He follows in the office with Dr. Rodriguez. He presented to the emergency department with complaints of sudden onset of difficulties with speech and also inability to focus. Symptoms began to resolve after arrival but he continues to have difficulties with his speech. Computed tomography scan of the head did not show any acute abnormality. CT angiography revealed severe stenosis involving the left common carotid artery at the bifurcation and also the proximal portion of the left internal carotid artery. He'll be undergoing carotid stenting by Dr. Coto on Thursday. Repeat computed tomography scan of the brain this morning showed no acute bleed or mass effect and no interval change compared to the CT scan dated 01/30/2022. Patient is being followed by neurology who feels this is more likely to be a small CVA as patient has lingering symptoms of speech difficulties. His Eliquis has been placed on hold in anticipation for carotid stenting. Upon examination this morning he sitting up at the site of the bed eating breakfast. Continues to have residual difficulty with his speech but denies any focal weakness and no issues with confusion or difficulty focusing. Of note he does have limited range of motion in the right arm due to some shoulder issues but hand grasps seem to be equal bilaterally. Echocardiogram with Doppler study showed moderately impaired LV systolic function with an ejection fraction between 35-40%, normally functioning bioprosthetic aortic valve, trace MR, mild to moderate mitral stenosis and mild TR. Objective - Vital Signs Vital signs: Vital Signs Temp 97.6 F 02/01/22 08:00 Pulse 63 02/01/22 08:00 Resp 18 02/01/22 08:00 BP 111/49 02/01/22 08:00 Pulse Ox 100 02/01/22 08:00 Intake & Output 01/31/22 02/01/22 02/01/22 18:59 06:59 18:59 Intake Total 118 Balance 118 Intake: Oral 118 Other: Voiding Method Urinal Urinal # Voids 3 2 - Exam PHYSICAL EXAMINATION: HEENT: Head is atraumatic, normocephalic. Pupils equal, round. Neck is supple. There is no elevated jugular venous pressure. No significant carotid bruit auscultated. HEART EXAMINATION: Heart sounds regular, S1 and S2 normal. With a systolic murmur at the base. CHEST EXAMINATION: Lungs are clear to auscultation. No chest wall tenderness is noted on palpation or with deep breathing. ABDOMEN: Soft, nontender. Bowel sounds are heard. No organomegaly noted. EXTREMITIES: 2+ peripheral pulses with no evidence of peripheral edema and no calf tenderness noted. NEUROLOGIC patient is awake, alert and oriented x3. Minimal expressive aphasia noted. . - Labs CBC & Chem 7: 02/01/22 06:10 02/01/22 06:10 Labs: Abnormal Lab Results - Last 24 Hours (Table) 01/31/22 01/31/22 01/31/22 Range/Units 06:27 12:04 15:33 POC Glucose (mg/dL) 311 H (75-99) mg/dL Hemoglobin A1c 10.9 H (0.0-6.0) % Triglycerides 252.00 H (0.00-149.00) mg/dL VLDL Cholesterol, Calc 50.40 H (5.00-40.00) mg/dL HDL Cholesterol 34.20 L (40.00-60.00) mg/dL 01/31/22 01/31/22 02/01/22 Range/Units 17:15 20:09 07:39 POC Glucose (mg/dL) 369 H 353 H 209 H (75-99) mg/dL Hemoglobin A1c (0.0-6.0) % Triglycerides (0.00-149.00) mg/dL VLDL Cholesterol, Calc (5.00-40.00) mg/dL HDL Cholesterol (40.00-60.00) mg/dL Assessment and Plan Assessment: #1 acute TIA versus CVA #2 left carotid stenosis, severe #3 hypertension #4 CAD status post PCI #5 cardiomyopathy status post AICD #6 history of aortic valve replacement #7 type 2 diabetes mellitus, uncontrolled, hemoglobin A1c 10.5% Plan: From cardiology's perspective we will hold Eliifeomais in anticipation for carotid stenting on Thursday. Defer treatment of diabetes to primary. We will continue to follow the patient right further recommendations accordingly. The above dictated assessment and findings were discussed with signing physician. The impression and plan of care have been directed as dictated. Kalyn Naqvi, Nurse Practitioner, acting as scribe for signing physician.
[2022-02-01 13:08] LABS: Glucose,Whole Blood 307 mg/dL (75-99)
[2022-02-01] MEDS: APIXABAN 5 MG TAB PO SCH (16:15)
[2022-02-01] MEDS: ASPIRIN 81 MG PO SCH (16:15)
[2022-02-01 17:23] LABS: Glucose,Whole Blood 274 mg/dL (75-99)
[2022-02-01 19:27] LABS: Glucose,Whole Blood 267 mg/dL (75-99)
[2022-02-01] MEDS: ATORVASTATIN 80 MG TAB PO SCH (19:30)
--- NOTE | 2022-02-01 21:52 | P.PN ---
Subjective This is a pleasant 81 years old male with multiple medical problems including congestive heart failure, atrial fibrillation on Eliquis, diabetes mellitus on insulin, chronic kidney disease stage III. Presents because of slurred speech, CT of the brain on admission showed no acute hemorrhage but there is possible small acute infarct cannot be excluded. Repeat CT of the brain today showing no interval change and no bleed as well. Patient still has some mild slurred speech but no other neurological deficits, no headache, no chest pain, no GI or or urinary complaints. Echocardiogram showed ejection fraction of 35-40%. Hemoglobin A1c is 10.9 and his Levemir 25 units daily, we added NovoLog 3 units with meals and change his diet to diabetic diet Cardiology on the case and they held his Eliquis preoperative preparation for surgery as his troponins secondary to symptomatic 80-90% left internal carotid artery stenosis with plan for possible stent on Thursday. Objective - Vital Signs Vital signs: Vital Signs Temp 97.6 F 02/01/22 08:00 Pulse 63 02/01/22 08:00 Resp 18 02/01/22 08:00 BP 111/49 02/01/22 08:00 Pulse Ox 100 02/01/22 08:00 Intake & Output 01/31/22 02/01/22 02/01/22 18:59 06:59 18:59 Intake Total 118 125 Balance 118 125 Weight 92.533 kg Intake: Oral 118 125 Other: Voiding Method Urinal Urinal # Voids 3 2 - Exam GENERAL: The patient is alert and oriented x3, not in any acute distress. Well developed, well nourished. HEENT: Pupils are round and equally reacting to light. EOMI. No scleral icterus. No conjunctival pallor. Normocephalic, atraumatic. No pharyngeal erythema. No thyromegaly. CARDIOVASCULAR: S1 and S2 present. No murmurs, rubs, or gallops. PULMONARY: Chest is clear to auscultation, no wheezing or crackles. ABDOMEN: Soft, nontender, nondistended, normoactive bowel sounds. No palpable organomegaly. MUSCULOSKELETAL: No joint swelling or deformity. EXTREMITIES: No cyanosis, clubbing, or pedal edema. -NEUROLOGICAL: Gross neurological examination did not reveal any focal deficits. Other than mild slurred speech SKIN: No rashes. no petechiae. - Labs CBC & Chem 7: 02/01/22 06:10 02/01/22 06:10 Labs: Abnormal Lab Results - Last 24 Hours (Table) 01/31/22 01/31/22 01/31/22 Range/Units 15:33 17:15 20:09 RBC (4.40-5.60) X 10*6/uL Hgb (13.0-17.0) g/dL Hct (39.6-50.0) % MCHC (32.0-37.0) g/dL MPV (9.5-12.2) fL BUN (9.0-27.0) mg/dL Est GFR (CKD-EPI)AfAm (60.0-200.0) Est GFR (CKD-EPI)NonAf (60.0-200.0) BUN/Creatinine Ratio (12.00-20.00) Ratio Glucose (70-110) mg/dL POC Glucose (mg/dL) 369 H 353 H (75-99) mg/dL Hemoglobin A1c 10.9 H (0.0-6.0) % Magnesium (1.5-2.4) mg/dL 02/01/22 02/01/22 02/01/22 Range/Units 06:10 06:10 07:39 RBC 3.68 L (4.40-5.60) X 10*6/uL Hgb 10.8 L (13.0-17.0) g/dL Hct 34.3 L (39.6-50.0) % MCHC 31.5 L (32.0-37.0) g/dL MPV 12.8 H (9.5-12.2) fL BUN 32.1 H (9.0-27.0) mg/dL Est GFR (CKD-EPI)AfAm 58.9 L (60.0-200.0) Est GFR (CKD-EPI)NonAf 50.8 L (60.0-200.0) BUN/Creatinine Ratio 24.69 H (12.00-20.00) Ratio Glucose 212 H (70-110) mg/dL POC Glucose (mg/dL) 209 H (75-99) mg/dL Hemoglobin A1c (0.0-6.0) % Magnesium 2.5 H (1.5-2.4) mg/dL 02/01/22 Range/Units 13:07 RBC (4.40-5.60) X 10*6/uL Hgb (13.0-17.0) g/dL Hct (39.6-50.0) % MCHC (32.0-37.0) g/dL MPV (9.5-12.2) fL BUN (9.0-27.0) mg/dL Est GFR (CKD-EPI)AfAm (60.0-200.0) Est GFR (CKD-EPI)NonAf (60.0-200.0) BUN/Creatinine Ratio (12.00-20.00) Ratio Glucose (70-110) mg/dL POC Glucose (mg/dL) 307 H (75-99) mg/dL Hemoglobin A1c (0.0-6.0) % Magnesium (1.5-2.4) mg/dL Assessment and Plan Assessment: Acute mild slurred speech suspicious for TIA versus acute stroke. Severe symptomatic left common and internal carotid arteries, with plan for possible stent on Thursday Hypertension Hyperlipidemia A. 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 Hemoglobin A1c 10.9% Plan: This is a pleasant 81 years old male who presents with possible stroke versus TIA Neurology service on the case Aspirin 81 mg added and plan for vascular stent placement for left internal and common carotid artery stenosis. Eliquis is on hold for his A. fib. The preparation for procedure Continue with Levemir 25 units, insulin sliding scale. But at NovoLog 3 units with meals because of uncontrolled diabetes Neurology and cardiology teams of the case Labs and medication were reviewed.. Continue same treatment. Continue with symptomatic treatment. Resume home medication. Monitor lytes and vitals. DVT and GI prophylaxis. Further recommendations as per clinical course of the patient DVT prophylaxis: Subcutaneous heparin (while Eliquis on hold) GI Prophylaxis: Pepcid
[2022-02-01] MEDS: HEPARIN SODIUM,PORCINE/PF 5,000 UNIT/0.5 ML SYRINGE SQ SCH (22:56)
--- NOTE | 2022-02-02 06:48 | XR ---
EXAMINATION TYPE: XR chest 2V DATE OF EXAM: 02/02/2022 COMPARISON: 01/30/2022 HISTORY: Follow-up infiltrate TECHNIQUE: Frontal and lateral views of the chest are obtained. FINDINGS: There is a 2-lead cardiac pacemaker. There is mild pulmonary vascular congestion facial edema unchanged compared to previous. The heart is not enlarged. There is no pneumothorax or pleural effusion. The osseous structures are intact. IMPRESSION: No change in the mild pulmonary vascular congestion and interstitial edema.
[2022-02-02 08:31] LABS: Glucose,Whole Blood 203 mg/dL (75-99)
[2022-02-02] MEDS: INSULIN DETEMIR (LEVEMIR) 100 UNIT/ML SYR SQ SCH (08:44)
[2022-02-02] MEDS: METOPROLOL SUCCINATE (ER) 100 MG TAB.ER.24H PO SCH ×2 (08:44→21:36)
[2022-02-02] MEDS: INSULIN ASPART (NovoLOG) 100 UNIT/ML VIAL SQ SCH ×7 (08:44→21:36)
[2022-02-02] MEDS: AMIODARONE 200 MG TAB PO SCH (08:45)
[2022-02-02] MEDS: FERROUS SULFATE 325 MG TAB PO SCH ×2 (08:45→21:37)
[2022-02-02] MEDS: FAMOTIDINE 20 MG/2 ML VIAL IV SCH ×2 (08:45→21:36)
[2022-02-02] MEDS: PANTOPRAZOLE 40 MG TABLET PO SCH (08:45)
[2022-02-02] MEDS: HEPARIN SODIUM,PORCINE/PF 5,000 UNIT/0.5 ML SYRINGE SQ SCH ×2 (08:45→21:36)
[2022-02-02] MEDS: EZETIMIBE 10 MG TAB PO SCH (08:45)
[2022-02-02] MEDS: SPIRONOLACTONE 25 MG TAB PO SCH (08:45)
[2022-02-02] MEDS ORDERED: ASPIRIN 81 MG PO STA (10:24)
[2022-02-02] MEDS: ASPIRIN 81 MG PO SCH (10:42)
--- NOTE | 2022-02-02 11:19 | P.PN ---
Subjective Patient is comfortable at rest ambulating with a walker does not have new focal neurological deficits denies chest pain difficulty in breathing or palpitations He is to undergo carotid stenting Eye exam comfortable at rest heart rate is 60 bpm blood pressure is 94/50 respirators 16 O2 sat is 98% on room and there is a jugular venous distention carotid upstroke is normal there is no bruit chest exam reveals good air entry bilaterally heart exam vessel second heart sounds no gallop abdomen is soft nontender exams extremities did not reveal any edema per for pulses are felt Assessment and plan: TIA secondary to carotid stenosis Patient has severe left internal carotid artery stenosis for which she will undergo stent tomorrow morning I will check electrolytes and CBC on him Objective - Vital Signs Vital signs: Vital Signs Temp 97.6 F 02/02/22 07:43 Pulse 60 02/02/22 07:43 Resp 16 02/02/22 07:43 BP 94/52 02/02/22 07:43 Pulse Ox 98 02/02/22 07:43 Intake & Output 02/01/22 02/02/22 02/02/22 17:59 06:59 18:59 Intake Total 356 Balance 356 Weight Intake: Oral 356 Other: Voiding Method Urinal # Voids - Labs CBC & Chem 7: 02/01/22 06:10 02/01/22 06:10 Labs: Abnormal Lab Results - Last 24 Hours (Table) 02/01/22 02/01/22 02/01/22 Range/Units 13:07 17:22 19:25 POC Glucose (mg/dL) 307 H 274 H 267 H (75-99) mg/dL 02/02/22 Range/Units 08:30 POC Glucose (mg/dL) 203 H (75-99) mg/dL
[2022-02-02 12:47] LABS: Glucose,Whole Blood 298 mg/dL (75-99)
[2022-02-02 17:45] LABS: Glucose,Whole Blood 236 mg/dL (75-99)
[2022-02-02 20:20] LABS: Glucose,Whole Blood 277 mg/dL (75-99)
[2022-02-02] MEDS: ATORVASTATIN 80 MG TAB PO SCH (21:37)
--- NOTE | 2022-02-03 05:03 | P.PN ---
Subjective This is a pleasant 81 years old male with multiple medical problems including congestive heart failure, atrial fibrillation on Eliquis, diabetes mellitus on insulin, chronic kidney disease stage III. Presents because of slurred speech, CT of the brain on admission showed no acute hemorrhage but there is possible small acute infarct cannot be excluded. Repeat CT of the brain today showing no interval change and no bleed as well. Patient still has some mild slurred speech but no other neurological deficits, no headache, no chest pain, no GI or or urinary complaints. Echocardiogram showed ejection fraction of 35-40%. Hemoglobin A1c is 10.9 and his Levemir 25 units daily, we added NovoLog 3 units with meals and change his diet to diabetic diet Cardiology on the case and they held his Eliquis preoperative preparation for surgery as his troponins secondary to symptomatic 80-90% left internal carotid artery stenosis with plan for possible stent on Thursday. 02/02/2022 Patient states some worsening in his slurred today, extra dose of baby aspirin is provided 81 mg. Patient showed improvement after it. Known new weakness or numbness. No hepatic or change in mentation. Chest x-ray showed mild pulmonary vascular congestion and interstitial edema. Oxygen saturation 100% the patient is not tachypneic. Cartilages on the case and planned for stent placement for stenotic left ventricular carotid artery stenosis. He is on NovoLog 3 units with meals and Levemir 25 units, we will lower the dose to 10 units tomorrow because he is nothing by mouth Objective - Vital Signs Vital signs: Vital Signs Temp 97.6 F 02/02/22 07:43 Pulse 60 02/02/22 07:43 Resp 16 02/02/22 07:43 BP 94/52 02/02/22 07:43 Pulse Ox 98 02/02/22 07:43 Intake & Output 02/01/22 02/02/22 02/02/22 17:59 06:59 18:59 Intake Total 356 Balance 356 Weight Intake: Oral 356 Other: Voiding Method Urinal # Voids - Exam GENERAL: The patient is alert and oriented x3, not in any acute distress. Well developed, well nourished. HEENT: Pupils are round and equally reacting to light. EOMI. No scleral icterus. No conjunctival pallor. Normocephalic, atraumatic. No pharyngeal erythema. No thyromegaly. CARDIOVASCULAR: S1 and S2 present. No murmurs, rubs, or gallops. PULMONARY: Chest is clear to auscultation, no wheezing or crackles. ABDOMEN: Soft, nontender, nondistended, normoactive bowel sounds. No palpable organomegaly. MUSCULOSKELETAL: No joint swelling or deformity. EXTREMITIES: No cyanosis, clubbing, or pedal edema. -NEUROLOGICAL: Gross neurological examination did not reveal any focal deficits. Other than mild slurred speech SKIN: No rashes. no petechiae. - Labs CBC & Chem 7: 02/01/22 06:10 02/01/22 06:10 Labs: Abnormal Lab Results - Last 24 Hours (Table) 02/01/22 02/01/22 02/01/22 Range/Units 13:07 17:22 19:25 POC Glucose (mg/dL) 307 H 274 H 267 H (75-99) mg/dL 02/02/22 Range/Units 08:30 POC Glucose (mg/dL) 203 H (75-99) mg/dL Assessment and Plan Assessment: Acute mild slurred speech suspicious for TIA versus acute stroke. Severe symptomatic left common and internal carotid arteries, with plan for possible stent on Thursday Hypertension Hyperlipidemia A. 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 Hemoglobin A1c 10.9% Plan: This is a pleasant 81 years old male who presents with possible stroke versus TIA Neurology service on the case Aspirin 81 mg added and plan for vascular stent placement for left internal and common carotid artery stenosis. Eliquis is on hold for his A. fib. The preparation for procedure Continue with Levemir 10 units (was 25 units), insulin sliding scale. NovoLog 3 units with meals because of uncontrolled diabetes cardiology teams on the case Labs and medication were reviewed.. Continue same treatment. Continue with symptomatic treatment. Resume home medication. Monitor lytes and vitals. DVT and GI prophylaxis. Further recommendations as per clinical course of the patient DVT prophylaxis: Subcutaneous heparin (while Eliquis on hold) GI Prophylaxis: Pepcid
[2022-02-03 06:43] LABS: HCT 36.1 % (39.0-53.0); HGB 11.2 gm/dL (13.0-17.5); Hypochromasia Slight; MCH 29.5 pg (25.0-35.0); MCHC 31.1 g/dL (31.0-37.0); MCV 94.9 fL (80.0-100.0); Mean Platelet Volume 10.2; Platelet Count 192 k/uL (150-450); RDW 14.7 % (11.5-15.5); WBC 7.9 k/uL (3.8-10.6)
[2022-02-03 06:56] LABS: ALT 12 U/L (4-49); AST 20 U/L (17-59); African American GFR (CKD) 54 (>60 ml/min/1.73 sqM); Albumin 3.8 g/dL (3.5-5.0); Albumin/Globulin Ratio 1.4; Alkaline Phosphatase 65 U/L (38-126); Anion Gap 7 mmol/L; Blood Urea Nitrogen 33 mg/dL (9-20); Calcium 9.2 mg/dL (8.4-10.2); Carbon Dioxide 25 mmol/L (22-30); Chloride 103 mmol/L (98-107); Globulin 2.8 g/dL; Glucose 167 mg/dL (74-99); Non-African American GFR(CKD) 46 (>60 ml/min/1.73 sqM); Potassium 5.3 mmol/L (3.5-5.1); Sodium 135 mmol/L (137-145); Total Bilirubin 0.4 mg/dL (0.2-1.3); Total Protein 6.6 g/dL (6.3-8.2)
[2022-02-03 07:48] LABS: Glucose,Whole Blood 166 mg/dL (75-99)
[2022-02-03] MEDS: INSULIN DETEMIR (LEVEMIR) 100 UNIT/ML SYR SQ SCH (08:42)
[2022-02-03] MEDS: INSULIN ASPART (NovoLOG) 100 UNIT/ML VIAL SQ SCH ×7 (08:43→20:06)
[2022-02-03] MEDS: EZETIMIBE 10 MG TAB PO SCH (08:55)
[2022-02-03] MEDS: METOPROLOL SUCCINATE (ER) 100 MG TAB.ER.24H PO SCH ×2 (08:55→21:00)
[2022-02-03] MEDS: HEPARIN SODIUM,PORCINE/PF 5,000 UNIT/0.5 ML SYRINGE SQ SCH ×2 (08:55→20:06)
[2022-02-03] MEDS: PANTOPRAZOLE 40 MG TABLET PO SCH (08:55)
[2022-02-03] MEDS: ASPIRIN 81 MG PO SCH (08:55)
[2022-02-03] MEDS: FAMOTIDINE 20 MG/2 ML VIAL IV SCH (08:55)
[2022-02-03] MEDS: SPIRONOLACTONE 25 MG TAB PO SCH (08:56)
[2022-02-03] MEDS: AMIODARONE 200 MG TAB PO SCH (08:56)
[2022-02-03] MEDS: FERROUS SULFATE 325 MG TAB PO SCH ×2 (08:56→20:06)
[2022-02-03] MEDS ORDERED: RX INFO: IV CONTRAST WAS GIVEN 1 EACH MISC MISCELLANE PRN (09:00)
[2022-02-03 12:42] LABS: Glucose,Whole Blood 204 mg/dL (75-99)
[2022-02-03] MEDS ORDERED: LIDOCAINE 1% INJ 10MG/ML (20 ML MDV) ONE (14:01)
[2022-02-03] MEDS ORDERED: SODIUM CHLORIDE 0.9% 500 ML 500 ML IV ONE (14:10)
[2022-02-03] MEDS ORDERED: LIDOCAINE 1% INJ 10MG/ML (20 ML MDV) SQ ONE (14:17)
[2022-02-03] MEDS ORDERED: CLOPIDOGREL 75 MG TAB ONE (14:25)
[2022-02-03] MEDS ORDERED: CLOPIDOGREL 75 MG TAB PO ONE (14:29)
[2022-02-03] MEDS ORDERED: HEPARIN SODIUM 1,000 UN/ML (10ML VL) ONE (14:31)
[2022-02-03] MEDS: HEPARIN SODIUM 1,000 UN/ML (10ML VL) IVP ONE ×3 (14:31→15:09)
[2022-02-03] MEDS ORDERED: IOPAMIDOL-370 100ML BTL INJ ONE (15:04)
[2022-02-03] MEDS ORDERED: ATROPINE SULFATE 0.1 MG/ML 10ML SYRINGE IV PRN (15:06)
[2022-02-03] MEDS ORDERED: MAG HYDROX/AL HYDROX/SIMETH 30 ML CUP PO PRN (15:06)
--- NOTE | 2022-02-03 15:16 | P.PCN ---
Date of Procedure: 02/03/22 Operative Findings: CAROTID ARTERY STENTING Performing physician Matthew Coto MD Procedure performed #1 successful stenting of the left internal carotid artery using 97 x 30 mm Xact stent with an excellent angiographic results with adjunctive use of filter wire #2 selective left common and left internal carotid angiogram #3 intracranial angiogram #4 selective right common femoral artery angiogram #5 ultrasound guided access of the right common femoral artery Indication This is a an 81-year-old gentleman with known CAD and PAD as well as valvular heart disease with presented to the hospital with a stroke. He underwent CTA and that revealed critical disease involving the left internal carotid artery Approach Right common femoral artery Complication None Level of sedation The procedure was performed without any sedation. Procedure description After obtaining an informed consent the patient was brought to the cardiac slabber. Under ultrasound guidance the right common femoral artery was cannulated using micropuncture technique, the micropuncture wire passed easily then I placed a 6-Setswana 90 cm shuttle sheath at the right common femoral artery. The sheath was advanced all the way to the descending aorta. After that an aortic arch angiogram was performed using a pigtail catheter with hand injection. At that point anticoagulation was initiated using heparin with continuous ACT monitoring throughout the case After that I did selective the takeoff of the left common carotid artery from the aortic arch. I did selective that using PTK catheter. After that the wire which was super core wire was advanced to the left common carotid artery and the catheter was attempted to advise but I was unable but I was able to advise multipurpose catheter. Then the sheath was advanced over the wire and multipurpose catheter to the mid left common carotid artery. Carotid angiogram was performed and identified the critical lesion in the takeoff of the left internal carotid artery. Subsequently I did wire the lesion using the filter wire and the filter was deployed under fluoroscopy guidance. After that I did do predilatation 4 mm balloon. Subsequently the stent was deployed under fluoroscopy guidance and then I postdilated using 5 mm balloon. The final angiogram showed good angiographic results. I did exchange my long sheath into short sheath using 035 stiff wire. Then I did selective right common femoral artery angiogram The procedure was completed without any complication Procedure management Dual antiplatelet therapy Risk factor modification Follow-up with the patient
--- NOTE | 2022-02-03 15:57 | IR ---
Fluoroscopy HISTORY: Carotid stenosis 14 minutes fluoroscopy time supplied to the referring clinician. 402 intraoperative C-arm images doc ument the procedure. See dictated report from cardiology.
[2022-02-03 15:59] LABS: Glucose,Whole Blood 216 mg/dL (75-99)
[2022-02-03 19:59] LABS: Glucose,Whole Blood 223 mg/dL (75-99)
[2022-02-03] MEDS: ATORVASTATIN 40 MG TAB PO SCH (20:06)
[2022-02-04 06:12] LABS: Glucose,Whole Blood 132 mg/dL (75-99)
[2022-02-04] MEDS: INSULIN ASPART (NovoLOG) 100 UNIT/ML VIAL SQ SCH ×7 (06:30→21:02)
[2022-02-04] MEDS ORDERED: SODIUM CHLORIDE 0.9% 500 ML 100 ML IV ONE (06:47)
[2022-02-04] MEDS: PANTOPRAZOLE 40 MG TABLET PO SCH (07:36)
[2022-02-04] MEDS: INSULIN DETEMIR (LEVEMIR) 100 UNIT/ML SYR SQ SCH (07:36)
--- NOTE | 2022-02-04 07:56 | P.PN ---
Subjective Progress Note Date: 02/04/22 Principal diagnosis: Carotid disease/stroke The patient is a pleasant 81-year-old gentleman with extensive cardiovascular history who was admitted to the hospital with a stroke and underwent CTA of the neck and that revealed critical disease involving the left internal carotid a rtery. He underwent yesterday successful stenting of the left internal carotid artery with an excellent angiographic results from the procedure performed from the right groin. He was seen this morning. The right groin is soft and nontender and without any bruises. He is asymptomatic from a cardiac vascular standpoint overview. The pressure is soft. For that reason I'm holding the lisinopril as well as Aldactone and also going to give the patient a bolus of 100 mL of 0.9 normal saline. I advised also the patient to get up and around. Meanwhile I would restart the patient back on oral anticoagulation with a look with. Continue dual antiplatelet therapy and continue following up with the patient Objective - Vital Signs Vital signs: Vital Signs Temp 97.7 F 02/04/22 04:00 Pulse 67 02/04/22 07:00 Resp 17 02/04/22 07:00 BP 107/70 02/04/22 07:00 Pulse Ox 99 02/04/22 07:00 Intake & Output 02/03/22 02/04/22 02/04/22 18:59 06:59 18:59 Intake Total 150 Output Total 40 Balance 150 -40 Weight 90.1 kg Intake: IV 150 Output: Urine 40 Other: Voiding Method Toilet Urinal # Voids 1 0 0 # Bowel Movements 1 - Constitutional General appearance: Present: no acute distress - Respiratory Respiratory: bilateral: diminished - Cardiovascular Rhythm: regular Heart sounds: normal: S1, S2 - Labs CBC & Chem 7: 02/03/22 05:53 02/03/22 05:53 Labs: Abnormal Lab Results - Last 24 Hours (Table) 02/03/22 02/03/22 02/03/22 Range/Units 12:41 15:57 19:57 POC Glucose (mg/dL) 204 H 216 H 223 H (75-99) mg/dL 02/04/22 Range/Units 06:10 POC Glucose (mg/dL) 132 H (75-99) mg/dL Assessment and Plan Assessment: Assessment #1 stroke #2 severe disease involving the left internal carotid artery #3 status post a stenting of the left internal carotid artery #4 multiple comorbid conditions Plan #1 restart the patient back on oral anticoagulation #2 continue dual antiplatelet therapy #3 DC lisinopril and DC Aldactone #4 a bolus of 100 mL of 0.9 normal saline #5 follow-up with the patient
[2022-02-04 07:58] LABS: Basophils # (A) 0.1 k/uL (0-0.2); Basophils % (A) 1 %; Eosinophils # (A) 0.1 k/uL (0-0.7); Eosinophils % (A) 1 %; HCT 35.9 % (39.0-53.0); HGB 11.2 gm/dL (13.0-17.5); Hypochromasia Moderate; Lymphocytes # (A) 0.7 k/uL (1.0-4.8); Lymphocytes % (A) 8 %; MCH 29.8 pg (25.0-35.0); MCHC 31.2 g/dL (31.0-37.0); MCV 95.7 fL (80.0-100.0); Mean Platelet Volume 10.1; Monocytes # (A) 0.6 k/uL (0-1.0); Monocytes % (A) 7 %; Neutrophils # (A) 7.2 k/uL (1.3-7.7); Neutrophils % (A) 83 %; Platelet Count 233 k/uL (150-450); RBC 3.76 m/uL (4.30-5.90); RDW 14.9 % (11.5-15.5); WBC 8.7 k/uL (3.8-10.6)
[2022-02-04 08:14] LABS: Calcium 8.9 mg/dL (8.4-10.2); Potassium 4.5 mmol/L (3.5-5.1)
[2022-02-04] MEDS: SPIRONOLACTONE 25 MG TAB PO SCH (08:40)
[2022-02-04] MEDS: APIXABAN 2.5 MG TABLET PO SCH ×2 (08:50→21:01)
[2022-02-04] MEDS: AMIODARONE 200 MG TAB PO SCH (08:50)
[2022-02-04] MEDS: CLOPIDOGREL 75 MG TAB PO SCH (08:50)
[2022-02-04] MEDS: ASPIRIN 81 MG PO SCH (08:50)
[2022-02-04] MEDS: EZETIMIBE 10 MG TAB PO SCH (08:50)
[2022-02-04] MEDS: FERROUS SULFATE 325 MG TAB PO SCH ×2 (08:50→21:01)
[2022-02-04] MEDS: METOPROLOL SUCCINATE (ER) 100 MG TAB.ER.24H PO SCH ×2 (08:50→21:01)
[2022-02-04] MEDS: FAMOTIDINE 20 MG/2 ML VIAL IV SCH (08:51)
[2022-02-04] MEDS ORDERED: APIXABAN 5 MG TAB PO SCH (09:00)
--- NOTE | 2022-02-04 10:27 | CDI ---
Documentation Clarification Form Date: 02/04/2022 10:02:29 AM From: Paula Davis RN CCDS Admit Date: 01/31/2022 01:19:00 PM Patient Name: Christiano Kaye Visit Number: [id number] Discharge Date: ATTENTION: The Clinical Documentation Specialists (CDI) and [facility] Coding Staff appreciate your assistance in clarifying documentation. Please respond to the clarification below the line at the bottom and electronically sign. The CDI & [facility] Coding staff will review the response and follow-up if needed. Please note: Queries are made part of the Legal Health Record. If you have any questions, please contact the author of this message via ITS. Dr. Dejesus Your patient has the documented diagnosis of unspecified Congestive Heart Failure 02/01, Medicine progress note. Additional information regarding the type, acuity of Congestive Heart Failure is requested. History/Risk Factors: 81-year-old male presents to the ED after not being able to talk normally. Medical History: CKD 3, Congestive Heart Failure & DM. Clinical Indicators: Admitting Diagnosis: Tia/Stroke, Severe disease involving the left internal carotid artery. VS/Pulse OX: 01/30 B/P 116/72; HR 70; RR 18; Temp 97.8 Oral F; SpO2 98% RA Echocardiogram Results: EF 35-40% mild mitral annular calcification present. Trace mitral regurgitation. Mild to moderate mitral stenosis. Mild tricuspid regurgitation present. Chest X Ray 2 view: 3 Right upper lung zone infiltration versus artifact, please correlate clinically. Treatment: 01/31 to current Toprol Xl 100mg PO Bid; 01/31 02/04 Aldactone 12.5mg PO Daily In your professional opinion, can you please clarify the acuity and type of CHF if known? [ ] Chronic Systolic Heart Failure (reduced EF) [ ] Other, please specify [ ] Unable to determine (Template Last Revised: December 2020) Chronic Systolic Heart Failure MTDD
--- NOTE | 2022-02-04 11:33 | P.PN ---
Subjective Progress Note Date: 02/04/22 I am seeing the patient for the first time for neurological management. Please refer to Dr. Franz's for further details. It seems the patient had slurred speech and had left ICA that is symptomatic of 80-90% and had carotid stenting by Dr. Coto on 02/04/2020 Patient feels he is doing well and denies of any new neurological deficits. Per nurse he is doing well but occasionaly has delay in response. Objective - Vital Signs Vital signs: Vital Signs Temp 97.6 F 02/04/22 08:00 Pulse 68 02/04/22 11:00 Resp 14 02/04/22 11:00 BP 101/49 02/04/22 11:00 Pulse Ox 97 02/04/22 11:00 Intake & Output 02/03/22 02/04/22 02/04/22 18:59 06:59 18:59 Intake Total 150 300 Output Total 40 Balance 150 -40 300 Weight 90.1 kg Intake: IV 150 Intake, IV Titration 100 Amount Sodium Chloride 0.9% 500 100 ml 100 ml @ 999 mls/hr IV .Q6M ONE Rx#:[id number] Oral 200 Output: Urine 40 Other: Voiding Method Toilet Toilet Urinal Urinal # Voids 1 0 1 # Bowel Movements 1 - Exam GENERAL: The patient is lying in bed and is not in acute distress. NEUROLOGICAL: Higher mental function: The patient is awake, alert, oriented to self, place and time. Patient is following commands. No aphasia and no neglect. Cranial nerves: The pupils are round, equal and reactive to light and a ccommodation. Visual roman are full to confrontation throughout. Extraocular movement is intact no nystagmus is noted. Facial sensation is normal to touch throughout. The facial strength is normal throughout. Tongue is midline and moved [id number] without any difficulty. No dysarthria is noted. Shoulder shrug is normal bilaterally. Motor: The strength is right upper extremity is 4+ and is old and stated has shoulder pain and had injection in past. Otherwise 5 over 5 throughout. Normal tone and bulk. Cerebellum: Normal finger to nose bilaterally. Sensation: Sensation is normal to touch throughout. WORK-UP: * CTA of head and neck revealed severe stenosis (about 80-90%) of the left common carotid artery bifurcation and proximal portion of the left ICA. No other significant stenosis or occlusion of the major neck or intracranial arteries. * 2-D echo revealed paced rhythm. Normal left ventricular size. Moderate concentric LVH. Left ventricle systolic function is moderately impaired with EF between 35-40%. Normally functioning bioprosthetic valve. Mitral valve leaflets are mildly thickened. * Lipid panel revealed cholesterol 145, LDL 60, HDL 34 and triglycerides 252. * HbA1c: 10.9 - Labs CBC & Chem 7: 02/04/22 07:21 02/04/22 07:21 Labs: Abnormal Lab Results - Last 24 Hours (Table) 02/03/22 02/03/22 02/03/22 Range/Units 12:41 15:57 19:57 RBC (4.30-5.90) m/uL Hgb (13.0-17.5) gm/dL Hct (39.0-53.0) % Lymphocytes # (1.0-4.8) k/uL Sodium (137-145) mmol/L BUN (9-20) mg/dL Glucose (74-99) mg/dL POC Glucose (mg/dL) 204 H 216 H 223 H (75-99) mg/dL 02/04/22 02/04/22 02/04/22 Range/Units 06:10 07:21 07:21 RBC 3.76 L (4.30-5.90) m/uL Hgb 11.2 L (13.0-17.5) gm/dL Hct 35.9 L (39.0-53.0) % Lymphocytes # 0.7 L (1.0-4.8) k/uL Sodium 135 L (137-145) mmol/L BUN 25 H (9-20) mg/dL Glucose 160 H (74-99) mg/dL POC Glucose (mg/dL) 132 H (75-99) mg/dL Assessment and Plan Assessment: * TIA and had slightly slurred speech. * Left ICA stenosis 80-90% per CTA, most likely symptomatic s/p stenting on 02/03/2022 * Diabetes and is uncontrolled of HbA1C of 10.9 * Atrial fibrillation on anticoagulation * Pacemaker * X tobacco use * CAD Plan: * Patient is currently on ASA 81mg daily, Plavix 75mg daily and Eliquis 2.5mg daily. From neurological perspective patient does not need to be on dual antiplatelets and will defer its use to Dr. Coto (nurse notified him of our recommendation). He decreased Eliquis from 5mg 1 tab bid to 2.5mg bid. * Recommend high dose statin. Currently on Lipitor 40mg qhs. * Continue neuro checks. * Will defer the rest of management to Dr. Coto and primary team. * Upon discharge, recommend patient to follow-up with a neurologist within 1-2 weeks as outpatient. There is no further neurological work-up. Please notify neurology team if any further concerns. Boris Galarza M.D. Neuro-Hospitalist Time with Patient: Less than 30
[2022-02-04 12:39] LABS: Glucose,Whole Blood 213 mg/dL (75-99)
[2022-02-04 17:02] LABS: Glucose,Whole Blood 257 mg/dL (75-99)
[2022-02-04 18:14] VITALS: PULSE 73
[2022-02-04 20:59] LABS: Glucose,Whole Blood 279 mg/dL (75-99)
[2022-02-04] MEDS: ATORVASTATIN 40 MG TAB PO SCH (21:01)
--- NOTE | 2022-02-04 23:30 | P.PN ---
Subjective Progress Note Date: 02/03/22 This is a pleasant 81 years old male with multiple medical problems including congestive heart failure, atrial fibrillation on Eliquis, diabetes mellitus on insulin, chronic kidney disease stage III. Presents because of slurred speech, CT of the brain on admission showed no acute hemorrhage but there is possible small acute infarct cannot be excluded. Repeat CT of the brain today showing no interval change and no bleed as well. Patient still has some mild slurred speech but no other neurological deficits, no headache, no chest pain, no GI or or urinary complaints. Echocardiogram showed ejection fraction of 35-40%. Hemoglobin A1c is 10.9 and his Levemir 25 units daily, we added NovoLog 3 units with meals and change his diet to diabetic diet Cardiology on the case and they held his Eliquis preoperative preparation for surgery as his troponins secondary to symptomatic 80-90% left internal carotid artery stenosis with plan for possible stent on Thursday. 02/02/2022 Patient states some worsening in his slurred today, extra dose of baby aspirin is provided 81 mg. Patient showed improvement after it. Known new weakness or numbness. No hepatic or change in mentation. Chest x-ray showed mild pulmonary vascular congestion and interstitial edema. Oxygen saturation 100% the patient is not tachypneic. Cartilages on the case and planned for stent placement for stenotic left ventricular carotid artery stenosis. He is on NovoLog 3 units with meals and Levemir 25 units, we will lower the dose to 10 units tomorrow because he is nothing by mouth 02/03/2022 Patient is status post stent placement to the internal carotid artery due to severe stenosis. Transferred to MICU. Denies any complaints of chest pain or shortness of breath. No fever no chills. Slurred speech due to acute CVA. No other focal weakness noted. Denied any difficulty in swallowing. No cough or sputum production. Current medications reviewed. Objective - Vital Signs Vital signs: Vital Signs Temp 97.4 F L 02/03/22 07:15 Pulse 60 02/03/22 07:15 Resp 17 02/03/22 07:15 BP 100/58 02/03/22 07:15 Pulse Ox 100 02/03/22 07:15 Intake & Output 02/02/22 02/03/22 02/03/22 18:59 06:59 18:59 Intake Total 1310 Balance 1310 Intake: Oral 1310 Other: Voiding Method Urinal # Voids 3 4 1 - Exam - Exam GENERAL: The patient is alert and oriented x3, not in any acute distress. Well developed, well nourished. HEENT: Pupils are round and equally reacting to light. EOMI. No scleral icterus. No conjunctival pallor. Normocephalic, atraumatic. No pharyngeal erythema. No thyromegaly. CARDIOVASCULAR: S1 and S2 present. No murmurs, rubs, or gallops. PULMONARY: Chest is clear to auscultation, no wheezing or crackles. ABDOMEN: Soft, nontender, nondistended, normoactive bowel sounds. No palpable organomegaly. MUSCULOSKELETAL: No joint swelling or deformity. EXTREMITIES: No cyanosis, clubbing, or pedal edema. -NEUROLOGICAL: Gross neurological examination did not reveal any focal deficits. Other than mild slurred speech SKIN: No rashes. no petechiae. - Labs CBC & Chem 7: 02/04/22 07:21 02/04/22 07:21 Labs: Abnormal Lab Results - Last 24 Hours (Table) 02/02/22 02/02/22 02/03/22 Range/Units 17:43 20:19 05:53 RBC 3.80 L (4.30-5.90) m/uL Hgb 11.2 L (13.0-17.5) gm/dL Hct 36.1 L (39.0-53.0) % Sodium (137-145) mmol/L Potassium (3.5-5.1) mmol/L BUN (9-20) mg/dL Creatinine (0.66-1.25) mg/dL Glucose (74-99) mg/dL POC Glucose (mg/dL) 236 H 277 H (75-99) mg/dL 02/03/22 02/03/22 02/03/22 Range/Units 05:53 07:47 12:41 RBC (4.30-5.90) m/uL Hgb (13.0-17.5) gm/dL Hct (39.0-53.0) % Sodium 135 L (137-145) mmol/L Potassium 5.3 H (3.5-5.1) mmol/L BUN 33 H (9-20) mg/dL Creatinine 1.41 H (0.66-1.25) mg/dL Glucose 167 H (74-99) mg/dL POC Glucose (mg/dL) 166 H 204 H (75-99) mg/dL Assessment and Plan Assessment: Acute mild slurred speech suspicious for TIA versus acute stroke. Severe symptomatic left common and internal carotid arteries. Patient is status post stenting of the left internal carotid artery on 02/03/2022 Hypertension Hyperlipidemia A. 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 Hemoglobin A1c 10.9% Plan: This is a pleasant 81 years old male who presents with possible stroke versus TIA Neurology service on the case Aspirin 81 mg added and Patient is status post stenting of the left internal carotid artery on 02/03/2022 for left internal and common carotid artery stenosis. Eliquis is on hold for his A. fib. Continue with Levemir 10 units (was 25 units), insulin sliding scale. NovoLog 3 units with meals because of uncontrolled diabetes cardiology teams on the case Labs and medication were reviewed.. Monitor lytes and vitals. DVT and GI prophylaxis. DVT prophylaxis: Subcutaneous heparin (while Eliquis on hold) GI Prophylaxis: Pepcid Time with Patient: Greater than 30
[2022-02-05 06:54] LABS: Glucose,Whole Blood 180 mg/dL (75-99)
[2022-02-05] MEDS: INSULIN DETEMIR (LEVEMIR) 100 UNIT/ML SYR SQ SCH (07:01)
[2022-02-05] MEDS: PANTOPRAZOLE 40 MG TABLET PO SCH (07:01)
[2022-02-05] MEDS: INSULIN ASPART (NovoLOG) 100 UNIT/ML VIAL SQ SCH ×4 (07:01→12:21)
--- NOTE | 2022-02-05 08:29 | P.PN ---
Subjective Progress Note Date: 02/05/22 Principal diagnosis: Carotid disease/stroke The patient is a pleasant 81-year-old gentleman with extensive cardiovascular history who was admitted to the hospital with a stroke and underwent CTA of the neck and that revealed critical disease involving the left internal carotid a rtery. He underwent yesterday successful stenting of the left internal carotid artery with an excellent angiographic results from the procedure performed from the right groin. The patient was seen this morning. He is asymptomatic from a cardiovascular standpoint of view. He continues to have paced rhythm. The pressure seems to be slightly better than yesterday. We held the Aldactone yesterday as well as the lisinopril. We gave him also a bolus of 100 mL of 0.9 normal saline. He is back on oral anticoagulation as well as antiplatelet. From a cardiovascular standpoint of view, the patient potentially can be discharged in the next 24 hours Objective - Vital Signs Vital signs: Vital Signs Temp 98 F 02/05/22 04:00 Pulse 73 02/04/22 18:00 Resp 20 02/05/22 04:00 BP 109/47 02/05/22 04:00 Pulse Ox 95 02/05/22 04:00 Intake & Output 02/04/22 02/05/22 02/05/22 18:59 06:59 18:59 Intake Total 950 Output Total 0 500 Balance 950 -500 Weight 90 kg Intake: Intake, IV Titration 100 Amount Sodium Chloride 0.9% 500 100 ml 100 ml @ 999 mls/hr IV .Q6M ONE Rx#:[id number] Oral 850 Output: Urine 0 500 Other: Voiding Method Toilet Toilet Urinal Urinal # Voids 1 2 - Constitutional General appearance: Present: no acute distress - Respiratory Respiratory: bilateral: diminished - Cardiovascular Rhythm: regular - Labs CBC & Chem 7: 02/04/22 07:21 02/04/22 07:21 Labs: Abnormal Lab Results - Last 24 Hours (Table) 02/04/22 02/04/22 02/04/22 Range/Units 12:38 17:00 20:57 POC Glucose (mg/dL) 213 H 257 H 279 H (75-99) mg/dL 02/05/22 Range/Units 06:53 POC Glucose (mg/dL) 180 H (75-99) mg/dL Assessment and Plan Assessment: Assessment #1 stroke #2 severe disease involving the left internal carotid artery #3 status post a stenting of the left internal carotid artery #4 multiple comorbid conditions Plan #1 continue the current medical regimen including triple therapy #2 possible discharge in the next 24 hour
[2022-02-05 09:07] VITALS: TEMP 98.2
[2022-02-05] MEDS: CLOPIDOGREL 75 MG TAB PO SCH (09:07)
[2022-02-05] MEDS: FERROUS SULFATE 325 MG TAB PO SCH (09:07)
[2022-02-05] MEDS: APIXABAN 2.5 MG TABLET PO SCH (09:07)
[2022-02-05] MEDS: FAMOTIDINE 20 MG/2 ML VIAL IV SCH (09:08)
[2022-02-05] MEDS: ASPIRIN 81 MG PO SCH (09:08)
[2022-02-05] MEDS: EZETIMIBE 10 MG TAB PO SCH (09:08)
[2022-02-05] MEDS: AMIODARONE 200 MG TAB PO SCH (09:08)
[2022-02-05] MEDS: SPIRONOLACTONE 25 MG TAB PO SCH (09:09)
[2022-02-05] MEDS: METOPROLOL SUCCINATE (ER) 100 MG TAB.ER.24H PO SCH (09:09)
[2022-02-05 12:08] LABS: Glucose,Whole Blood 272 mg/dL (75-99)
[2022-02-05 12:25] VITALS: BP 113/64; RESP 17
== END 2022-02-05 13:22 | disposition home or self-care (01) | DRG 35 ==
LOC: EC 15:26 → 6NMEDSUR 17:50 → OBSVTOIN 01-31 13:19 → 2SICU 02-03 15:35
PROVIDERS: ADMIT Hospitalist; ATTEND Hospitalist
PROC: B3171ZZ Fluoroscopy of Left Internal Carotid Artery using Low Osmolar Contrast (ICD-10-PCS; 2022-02-03)
PROC: B31R1ZZ Fluoroscopy of Intracranial Arteries using Low Osmolar Contrast (ICD-10-PCS; 2022-02-03)
PROC: B41F1ZZ Fluoroscopy of Right Lower Extremity Arteries using Low Osmolar Contrast (ICD-10-PCS; 2022-02-03)
PROC: 037L3DZ Dilation of Left Internal Carotid Artery with Intraluminal Device, Percutaneous Approach (ICD-10-PCS; principal; 2022-02-03 14:00)
DX: I63.9 Cerebral infarction, unspecified (principal); I13.0 Hypertensive heart and chronic kidney disease with heart failure and stage 1 through stage 4 chronic kidney disease, or unspecified chronic kidney disease; I50.22 Chronic systolic (congestive) heart failure; D64.9 Anemia, unspecified; E11.22 Type 2 diabetes mellitus with diabetic chronic kidney disease; E11.40 Type 2 diabetes mellitus with diabetic neuropathy, unspecified; E11.65 Type 2 diabetes mellitus with hyperglycemia; E78.5 Hyperlipidemia, unspecified; I25.10 Atherosclerotic heart disease of native coronary artery without angina pectoris; N18.30 Chronic kidney disease, stage 3 unspecified; I25.2 Old myocardial infarction; I25.5 Ischemic cardiomyopathy; I48.91 Unspecified atrial fibrillation; I65.22 Occlusion and stenosis of left carotid artery; R29.700 NIHSS score 0; R47.01 Aphasia; G56.91 Unspecified mononeuropathy of right upper limb; Z79.01 Long term (current) use of anticoagulants; Z79.4 Long term (current) use of insulin; Z79.899 Other long term (current) drug therapy; Z82.49 Family history of ischemic heart disease and other diseases of the circulatory system; Z83.3 Family history of diabetes mellitus; Z85.46 Personal history of malignant neoplasm of prostate; Z85.820 Personal history of malignant melanoma of skin; Z87.891 Personal history of nicotine dependence; Z95.3 Presence of xenogenic heart valve; Z95.5 Presence of coronary angioplasty implant and graft; Z95.810 Presence of automatic (implantable) cardiac defibrillator
CPT/HCPCS: 36415; 37215; 70450; 70496; 70498; 71046; 80048; 80053; 80061; 83036; 83735; 84484; 85025; 85027; 85610; 85730; 93005; 93306; 99285

== ENCOUNTER 2022-02-14 13:06 | Emergency (ER) | payer MEDICARE ==
--- NOTE | 2022-02-14 13:39 | ED ---
General Adult HPI - General Chief complaint: Weakness Stated complaint: weakness Time Seen by Provider: 02/14/22 13:32 Source: patient, EMS Mode of arrival: EMS Limitations: no limitations - History of Present Illness Initial comments: Patient presents to the ED by ambulance for evaluation. Patient states that he had a carotid stent placed a couple weeks ago, and he states that he has been getting more and more generally weak and then. Patient also states that he has had a decreased appetite, and he states that he has not been eating/drinking very much. Patient admits to feeling mildly nauseated as well. Patient states that he lives at home with his . Patient is on Eliquis and Plavix anticoagulation therapy. Patient denies having any pain, fever or chills, headache, focal numbness/weakness/neuro deficit, visual changes, chest pain or pressure, dyspnea, cough or cold symptoms, palpitations, syncope, abdominal pain, vomiting, diarrhea, bloody or melanotic stool, dysuria/hematuria/urinary frequency/urinary symptoms, decreased urine output, leg or calf swelling or pain, or any other symptoms or complaints. - Related Data Home Medications Medication Instructions Recorded Confirmed gemfibroziL [Lopid] 600 mg PO BID 02/27/17 02/14/22 Ezetimibe 10 mg PO DAILY 11/04/19 02/14/22 Spironolactone 12.5 mg PO DAILY 11/04/19 02/14/22 Ferrous Sulfate [Iron (65 MG 325 mg PO BID 04/07/21 02/14/22 Elemental)] Metoprolol Succinate (ER) [Toprol 100 mg PO BID 04/07/21 02/14/22 XL] Amiodarone HCl [Pacerone] 200 mg PO DAILY 07/20/21 02/14/22 Insulin NPH Human Isophane 35 units SQ DAILY 07/20/21 02/14/22 [NovoLIN N] lisinopriL [Zestril] 2.5 mg PO DAILY 07/20/21 02/14/22 Empagliflozin [Jardiance] 25 mg PO DAILY 01/30/22 02/14/22 Apixaban [Eliquis] 5 mg PO BID 02/14/22 02/14/22 Previous Rx's Medication Instructions Recorded Pantoprazole Sodium [Protonix] 40 mg PO -BRKFST #30 tablet. 11/10/19 Aspirin 81 mg PO DAILY #30 02/05/22 Atorvastatin [Lipitor] 40 mg PO HS #30 tab 02/05/22 Clopidogrel [Plavix] 75 mg PO DAILY #30 tab 02/05/22 Allergies Allergy/AdvReac Type Severity Reaction Status Date / Time bismuth subsalicylate AdvReac Severe ABD PAIN, Verified 02/14/22 15:41 [From Pepto-Bismol] N/V molasses AdvReac Severe Nausea & Uncoded 02/14/22 15:41 Vomiting Review of Systems ROS Statement: Those systems with pertinent positive or pertinent negative responses have been documented in the HPI. ROS Other: All systems not noted in ROS Statement are negative. 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 HEART STENTS X3. Laser/Radiation Tx for Prosate CA. EXC Rt Upper Arm Melanoma, Basal Cell EXC FROM SCALP. PTCA 06/15/15, INDIRA 08/22/15. ABD AORTOGRAM W/ RUNOFF 12/10/15, EGD, colonoscopy with arteriovenous malformation. LEFT NECK BASAL CELL CA REMOVED Past Anesthesia/Blood Transfusion Reactions: No Reported Reaction Date of Last Stent Placement:: 1999 Type of Cardiac Device: AICD Device Placement Date:: 04/01/2016-[facility] [place]-(model [id number] pt) Past Psychological History: No Psychological Hx Reported Smoking Status: Former smoker Past Alcohol Use History: Rare Past Drug Use History: None Reported - Past Family History Father Family Medical History: Diabetes Mellitus, Myocardial Infarction (AR) Additional Family Medical History / Comment(s): Father of a AR at age 64yrs. Mother History Unknown: Yes Family Medical History: No Reported History Additional Family Medical History / Comment(s): Mother at age 68 yrs. General Exam Limitations: no limitations General appearance: alert, in no apparent distress Head exam: Present: atraumatic, normocephalic Eye exam: Present: PERRL, EOMI ENT exam: Present: mucous membranes dry Neck exam: Present: other (Trachea is midline). Absent: tenderness, meningismus Respiratory exam: Present: normal lung sounds bilaterally. Absent: respiratory distress, wheezes, rales, rhonchi, stridor Cardiovascular Exam: Present: regular rate, normal rhythm, normal heart sounds, other (Normal radial pulses bilaterally) GI/Abdominal exam: Present: soft. Absent: distended, tenderness, guarding Rectal exam: Present: normal rectal tone, other (Dark stool was retrieved from rectal vault and sent for Hemoccult testing). Absent: tenderness Extremities exam: Absent: tenderness, pedal edema, calf tenderness Back exam: Absent: CVA tenderness (R), CVA tenderness (L) Neurological exam: Present: alert, oriented X3, CN II-XII intact. Absent: motor sensory deficit Psychiatric exam: Present: normal affect, normal mood Skin exam: Present: warm, dry, intact, pallor Course Vital Signs 02/14/22 02/14/22 02/14/22 13:17 14:06 15:24 Temperature 98.0 F 98.3 F Pulse Rate 81 87 86 Respiratory 16 18 18 Rate Blood Pressure 82/63 99/44 88/44 O2 Sat by Pulse 98 98 98 Oximetry 02/14/22 15:34 Temperature 98.1 F Pulse Rate 86 Respiratory 16 Rate Blood Pressure 88/33 O2 Sat by Pulse 98 Oximetry - Reevaluation(s) Reevaluation #1: 02/14/22 16:05 Patient was accepted for ambulance transfer to the [facility] ED by Dr. Tapia (ER physician). 02/14/22 16:11 Patient denies development of any new symptoms while in the ED. Patient's blood pressure has improved somewhat with ED treatment. Patient remains alert and breathing comfortably. Patient is aware of his test results, and he agrees with transfer to the [facility] ED at this time. EKG Findings - EKG Comments: EKG Findings:: Ventricular paced rhythm, ventricular rate of 86 bpm Medical Decision Making - Medical Decision Making Patient was noted to have melena on rectal examination, and his hemoglobin is 6.6. I suspect that the patient's weakness and hypotension are likely secondary to GI bleed. Patient's blood pressure has improved with administration of IV fluids and packed RBCs in the ED. Patient's lactic acid level is within normal limits. Patient was also given IV Protonix and PCC (due to Eliquis anticoagulation therapy) in the ED. Arrangements for transfer to [facility] were made due to the fact that we do not have GI coverage in our hospital today. Patient agrees with this plan. - Lab Data Result diagrams: 02/14/22 13:12 02/14/22 13:12 Lab Results 02/14/22 02/14/22 02/14/22 Range/Units 13:12 13:12 13:12 WBC 19.0 H (3.8-10.6) k/uL RBC 2.29 L (4.30-5.90) m/uL Hgb 6.6 L* D (13.0-17.5) gm/dL Hct 21.2 L (39.0-53.0) % MCV 92.5 (80.0-100.0) fL MCH 28.7 (25.0-35.0) pg MCHC 31.0 (31.0-37.0) g/dL RDW 15.9 H (11.5-15.5) % Plt Count 402 (150-450) k/uL MPV 9.0 Neutrophils % 92 % Lymphocytes % 3 % Monocytes % 4 % Eosinophils % 0 % Basophils % 0 % Neutrophils # 17.4 H (1.3-7.7) k/uL Lymphocytes # 0.5 L (1.0-4.8) k/uL Monocytes # 0.8 (0-1.0) k/uL Eosinophils # 0.0 (0-0.7) k/uL Basophils # 0.0 (0-0.2) k/uL Hypochromasia Marked Poikilocytosis Moderate PT 11.3 (9.0-12.0) sec INR 1.0 (<1.2) APTT 22.3 (22.0-30.0) sec Sodium 131 L (137-145) mmol/L Potassium 5.1 (3.5-5.1) mmol/L Chloride 102 (98-107) mmol/L Carbon Dioxide 14 L (22-30) mmol/L Anion Gap 15 mmol/L BUN 43 H (9-20) mg/dL Creatinine 1.73 H (0.66-1.25) mg/dL Est GFR (CKD-EPI)AfAm 42 (>60 ml/min/1.73 sqM) Est GFR (CKD-EPI)NonAf 36 (>60 ml/min/1.73 sqM) Glucose 240 H (74-99) mg/dL POC Glucose (mg/dL) (75-99) mg/dL POC Glu [place] Taper ID Plasma Lactic Acid Nikolay (0.7-2.0) mmol/L Calcium 8.7 (8.4-10.2) mg/dL Magnesium 2.4 H (1.6-2.3) mg/dL Total Bilirubin 0.6 (0.2-1.3) mg/dL AST 17 (17-59) U/L ALT 13 (4-49) U/L Alkaline Phosphatase 64 (38-126) U/L Troponin I (0.000-0.034) ng/mL NT-Pro-B Natriuret Pep pg/mL Total Protein 6.2 L (6.3-8.2) g/dL Albumin 3.6 (3.5-5.0) g/dL Urine Color Urine Appearance (Clear) Urine pH (5.0-8.0) Ur Specific [place] (1.001-1.035) Urine Protein (Negative) Urine Glucose (UA) (Negative) Urine Ketones (Negative) Urine Blood (Negative) Urine Nitrite (Negative) Urine Bilirubin (Negative) Urine Urobilinogen (<2.0) mg/dL Ur Leukocyte Esterase (Negative) Stool Occult Blood (Negative) Coronavirus (PCR) (Not Detectd) Blood Type Blood Type Recheck Bld Type Recheck Status Antibody Screen Crossmatch Spec Expiration Date 02/14/22 02/14/22 02/14/22 Range/Units 13:12 13:12 13:12 WBC (3.8-10.6) k/uL RBC (4.30-5.90) m/uL Hgb (13.0-17.5) gm/dL Hct (39.0-53.0) % MCV (80.0-100.0) fL MCH (25.0-35.0) pg MCHC (31.0-37.0) g/dL RDW (11.5-15.5) % Plt Count (150-450) k/uL MPV Neutrophils % % Lymphocytes % % Monocytes % % Eosinophils % % Basophils % % Neutrophils # (1.3-7.7) k/uL Lymphocytes # (1.0-4.8) k/uL Monocytes # (0-1.0) k/uL Eosinophils # (0-0.7) k/uL Basophils # (0-0.2) k/uL Hypochromasia Poikilocytosis PT (9.0-12.0) sec INR (<1.2) APTT (22.0-30.0) sec Sodium (137-145) mmol/L Potassium (3.5-5.1) mmol/L Chloride (98-107) mmol/L Carbon Dioxide (22-30) mmol/L Anion Gap mmol/L BUN (9-20) mg/dL Creatinine (0.66-1.25) mg/dL Est GFR (CKD-EPI)AfAm (>60 ml/min/1.73 sqM) Est GFR (CKD-EPI)NonAf (>60 ml/min/1.73 sqM) Glucose (74-99) mg/dL POC Glucose (mg/dL) (75-99) mg/dL POC Glu [place] Taper ID Plasma Lactic Acid Nikolay 1.6 (0.7-2.0) mmol/L Calcium (8.4-10.2) mg/dL Magnesium (1.6-2.3) mg/dL Total Bilirubin (0.2-1.3) mg/dL AST (17-59) U/L ALT (4-49) U/L Alkaline Phosphatase (38-126) U/L Troponin I <0.012 (0.000-0.034) ng/mL NT-Pro-B Natriuret Pep 3440 pg/mL Total Protein (6.3-8.2) g/dL Albumin (3.5-5.0) g/dL Urine Color Urine Appearance (Clear) Urine pH (5.0-8.0) Ur Specific [place] (1.001-1.035) Urine Protein (Negative) Urine Glucose (UA) (Negative) Urine Ketones (Negative) Urine Blood (Negative) Urine Nitrite (Negative) Urine Bilirubin (Negative) Urine Urobilinogen (<2.0) mg/dL Ur Leukocyte Esterase (Negative) Stool Occult Blood (Negative) Coronavirus (PCR) (Not Detectd) Blood Type Blood Type Recheck Bld Type Recheck Status Antibody Screen Crossmatch Spec Expiration Date 02/14/22 02/14/22 02/14/22 Range/Units 13:12 13:40 14:00 WBC (3.8-10.6) k/uL RBC (4.30-5.90) m/uL Hgb (13.0-17.5) gm/dL Hct (39.0-53.0) % MCV (80.0-100.0) fL MCH (25.0-35.0) pg MCHC (31.0-37.0) g/dL RDW (11.5-15.5) % Plt Count (150-450) k/uL MPV Neutrophils % % Lymphocytes % % Monocytes % % Eosinophils % % Basophils % % Neutrophils # (1.3-7.7) k/uL Lymphocytes # (1.0-4.8) k/uL Monocytes # (0-1.0) k/uL Eosinophils # (0-0.7) k/uL Basophils # (0-0.2) k/uL Hypochromasia Poikilocytosis PT (9.0-12.0) sec INR (<1.2) APTT (22.0-30.0) sec Sodium (137-145) mmol/L Potassium (3.5-5.1) mmol/L Chloride (98-107) mmol/L Carbon Dioxide (22-30) mmol/L Anion Gap mmol/L BUN (9-20) mg/dL Creatinine (0.66-1.25) mg/dL Est GFR (CKD-EPI)AfAm (>60 ml/min/1.73 sqM) Est GFR (CKD-EPI)NonAf (>60 ml/min/1.73 sqM) Glucose (74-99) mg/dL POC Glucose (mg/dL) 275 H (75-99) mg/dL POC Glu Sheet [place] Taper Gerda Schaeffer Plasma Lactic Acid Nikolay (0.7-2.0) mmol/L Calcium (8.4-10.2) mg/dL Magnesium (1.6-2.3) mg/dL Total Bilirubin (0.2-1.3) mg/dL AST (17-59) U/L ALT (4-49) U/L Alkaline Phosphatase (38-126) U/L Troponin I (0.000-0.034) ng/mL NT-Pro-B Natriuret Pep pg/mL Total Protein (6.3-8.2) g/dL Albumin (3.5-5.0) g/dL Urine Color Urine Appearance (Clear) Urine pH (5.0-8.0) Ur Specific [place] (1.001-1.035) Urine Protein (Negative) Urine Glucose (UA) (Negative) Urine Ketones (Negative) Urine Blood (Negative) Urine Nitrite (Negative) Urine Bilirubin (Negative) Urine Urobilinogen (<2.0) mg/dL Ur Leukocyte Esterase (Negative) Stool Occult Blood Positive (Negative) Coronavirus (PCR) (Not Detectd) Blood Type B Positive Blood Type Recheck B Pos Bld Type Recheck Status No Antibody Screen NEGATIVE Crossmatch See Detail Spec Expiration Date 02/17/2022 - 229902/14/22 02/14/22 Range/Units 14:05 15:06 WBC (3.8-10.6) k/uL RBC (4.30-5.90) m/uL Hgb (13.0-17.5) gm/dL Hct (39.0-53.0) % MCV (80.0-100.0) fL MCH (25.0-35.0) pg MCHC (31.0-37.0) g/dL RDW (11.5-15.5) % Plt Count (150-450) k/uL MPV Neutrophils % % Lymphocytes % % Monocytes % % Eosinophils % % Basophils % % Neutrophils # (1.3-7.7) k/uL Lymphocytes # (1.0-4.8) k/uL Monocytes # (0-1.0) k/uL Eosinophils # (0-0.7) k/uL Basophils # (0-0.2) k/uL Hypochromasia Poikilocytosis PT (9.0-12.0) sec INR (<1.2) APTT (22.0-30.0) sec Sodium (137-145) mmol/L Potassium (3.5-5.1) mmol/L Chloride (98-107) mmol/L Carbon Dioxide (22-30) mmol/L Anion Gap mmol/L BUN (9-20) mg/dL Creatinine (0.66-1.25) mg/dL Est GFR (CKD-EPI)AfAm (>60 ml/min/1.73 sqM) Est GFR (CKD-EPI)NonAf (>60 ml/min/1.73 sqM) Glucose (74-99) mg/dL POC Glucose (mg/dL) (75-99) mg/dL POC Glu [place] Taper ID Plasma Lactic Acid Nikolay (0.7-2.0) mmol/L Calcium (8.4-10.2) mg/dL Magnesium (1.6-2.3) mg/dL Total Bilirubin (0.2-1.3) mg/dL AST (17-59) U/L ALT (4-49) U/L Alkaline Phosphatase (38-126) U/L Troponin I (0.000-0.034) ng/mL NT-Pro-B Natriuret Pep pg/mL Total Protein (6.3-8.2) g/dL Albumin (3.5-5.0) g/dL Urine Color Light Yellow Urine Appearance Clear (Clear) Urine pH 5.0 (5.0-8.0) Ur Specific [place] 1.020 (1.001-1.035) Urine Protein Negative (Negative) Urine Glucose (UA) 4+ H (Negative) Urine Ketones Negative (Negative) Urine Blood Negative (Negative) Urine Nitrite Negative (Negative) Urine Bilirubin Negative (Negative) Urine Urobilinogen <2.0 (<2.0) mg/dL Ur Leukocyte Esterase Negative (Negative) Stool Occult Blood (Negative) Coronavirus (PCR) Not Detected (Not Detectd) Blood Type Blood Type Recheck Bld Type Recheck Status Antibody Screen Crossmatch Spec Expiration Date - Radiology Data Chest x-ray: Chronic changes and mild cardiomegaly without acute pulmonary process. Critical Care Time Critical Care Time: Yes Total Critical Care Time: 80 Disposition Clinical Impression: Generalized weakness, GI bleed, Anemia, Renal insufficiency Disposition: OTHER INSTITUTION NOT DEFINED Condition: Stable Is patient prescribed a controlled substance at d/c from ED?: No Referrals: Ivy Ventura MD [Primary Care Provider] - 1-2 days Time of Disposition: 16:13 - Out of Hospital Transfer - Req. Specs Out of Hospital Transfer - Requested Specifics: Other Emergency Center ([facility] ED)
[2022-02-14 13:46] LABS: Glucose,Whole Blood 275 mg/dL (75-99)
[2022-02-14] MEDS ORDERED: SODIUM CHLORIDE 0.9% 1,000 ML IV STA (13:46)
--- NOTE | 2022-02-14 14:06 | XR ---
EXAMINATION TYPE: XR chest 1V portable DATE OF EXAM: 02/14/2022 COMPARISON: Chest x-ray 12 days ago older studies. HISTORY: Weakness. TECHNIQUE: Single frontal view of the chest is obtained. FINDINGS: Reticular interstitial prominence towards the periphery and low lung volumes bilaterally r edemonstrated. The cardiac silhouette size is stable and mildly enlarged with multi lead pacemaker. Stent graft in the aortic root identified.. The osseous structures are demineralized. IMPRESSION: Chronic changes and mild cardiomegaly without acute pulmonary process.
[2022-02-14 14:23] LABS: Partial Thromboplastin Time 22.3 sec (22.0-30.0); Prothrombin Time 11.3 sec (9.0-12.0)
[2022-02-14] MEDS ORDERED: PANTOPRAZOLE 40 MG/10 ML VIAL IVP STA (14:25)
[2022-02-14 14:27] LABS: Basophils % (A) 0 %; Eosinophils % (A) 0 %; HCT 21.2 % (39.0-53.0); Hypochromasia Marked; Lymphocytes # (A) 0.5 k/uL (1.0-4.8); Lymphocytes % (A) 3 %; MCH 28.7 pg (25.0-35.0); MCV 92.5 fL (80.0-100.0); Monocytes # (A) 0.8 k/uL (0-1.0); Monocytes % (A) 4 %; Neutrophils # (A) 17.4 k/uL (1.3-7.7); Neutrophils % (A) 92 %; Platelet Count 402 k/uL (150-450); Poikilocytosis Moderate; RBC 2.29 m/uL (4.30-5.90); RDW 15.9 % (11.5-15.5)
[2022-02-14 14:29] LABS: Albumin 3.6 g/dL (3.5-5.0); Calcium 8.7 mg/dL (8.4-10.2); Magnesium 2.4 mg/dL (1.6-2.3); Total Bilirubin 0.6 mg/dL (0.2-1.3); Total Protein 6.2 g/dL (6.3-8.2)
[2022-02-14 14:30] LABS: HGB 6.6 gm/dL (13.0-17.5)
[2022-02-14] MEDS ORDERED: Kcentra PER PHARMACY 1 EACH MISC MISCELLANE STA (14:34)
[2022-02-14 14:36] LABS: Potassium 5.1 mmol/L (3.5-5.1)
[2022-02-14] MEDS ORDERED: HUMAN PROTHROMBIN COMPLX IV ONE (14:45)
[2022-02-14] MEDS ORDERED: HUMAN PROTHROMBIN COMPLX 500 UNIT/16 ML VIAL IV ONE (14:45)
[2022-02-14 15:12] LABS: Appearance,Urine Clear (Clear); Bilirubin,Urine Negative (Negative); Blood,Urine Negative (Negative); Color,Urine Light Yellow; Glucose,Urine (UA) 4+ (Negative); Ketones,Urine Negative (Negative); Leukocyte Esterase,Urine Negative (Negative); Nitrite,Urine Negative (Negative); Protein,Urine Negative (Negative); Urobilinogen,Urine <2.0 mg/dL (<2.0)
[2022-02-14 16:10] VITALS: TEMP 98.3
[2022-02-14 16:50] VITALS: BP 92/39; PULSE 80; RESP 16
== END 2022-02-14 16:44 | disposition other institution (70) ==
LOC: EC 13:06
DX: K92.2 Gastrointestinal hemorrhage, unspecified (principal); D64.9 Anemia, unspecified; N28.9 Disorder of kidney and ureter, unspecified; E11.9 Type 2 diabetes mellitus without complications; I10 Essential (primary) hypertension; I25.2 Old myocardial infarction; E78.5 Hyperlipidemia, unspecified; K21.9 Gastro-esophageal reflux disease without esophagitis; Z87.891 Personal history of nicotine dependence; Z79.82 Long term (current) use of aspirin; Z79.02 Long term (current) use of antithrombotics/antiplatelets; Z79.4 Long term (current) use of insulin; Z79.01 Long term (current) use of anticoagulants; Z79.899 Other long term (current) drug therapy
CPT/HCPCS: 96361 ×2; 96374 ×2; 96375 ×2; 99291 ×2; 99292 ×2; 36430; 36415; 93005; 86900; 86901; 83880; 80053; 83605; 83735; 84484; 85025; 85610; 85730; 86850; 86920; 82272; 81003; 87635; 71045; P9016; J7168; C9113

== ENCOUNTER 2022-03-06 00:14 | Inpatient (IN) | payer MEDICARE ==
[2022-03-06 00:48] LABS: Anisocytosis Slight; Basophils % (A) 0 %; Eosinophils # (A) 0.1 k/uL (0-0.7); Eosinophils % (A) 1 %; Hypochromasia Marked; Lymphocytes % (A) 6 %; MCH 26.5 pg (25.0-35.0); MCHC 30.8 g/dL (31.0-37.0); MCV 86.1 fL (80.0-100.0); Monocytes # (A) 0.8 k/uL (0-1.0); Monocytes % (A) 5 %; Neutrophils # (A) 13.4 k/uL (1.3-7.7); Neutrophils % (A) 85 %; Platelet Count 381 k/uL (150-450); Poikilocytosis Moderate; RBC 2.32 m/uL (4.30-5.90); RDW 17.7 % (11.5-15.5); WBC 15.7 k/uL (3.8-10.6)
--- NOTE | 2022-03-06 00:53 | ED ---
Recheck HPI - General Chief Complaint: Recheck/Abnormal Lab/Rx Stated Complaint: Abnormal Labs Time Seen by Provider: 03/06/22 00:16 Source: EMS Mode of arrival: EMS Limitations: no limitations - History of Present Illness Initial Comments: 's patient is an 81-year-old man sent here from [facility], to have evaluation for low hemoglobin. The patient had been admitted approximately 2 weeks ago for GI bleeding. He had been in [facility] where he was seen by GI and then discharged. He had some routine testing and hemoglobin was found to be less than 7. Patient states she is having dark stool but is noted to be taking iron. No chest pain, dyspnea, diaphoresis. The patient does note he has had a little bit of cough since leaving the other hospital, but has not noted fever or chills. Cough is nonproductive. MD Complaint: abnormal lab -: unknown Returns Today for: Called Because of Abnormal Lab/Test Symptoms Since Prior Visit: no new symptoms Associated Symptoms: none - Related Data Home Medications Medication Instructions Recorded Confirmed gemfibroziL [Lopid] 600 mg PO BID 02/27/17 02/14/22 Ezetimibe 10 mg PO DAILY 11/04/19 02/14/22 Spironolactone 12.5 mg PO DAILY 11/04/19 02/14/22 Ferrous Sulfate [Iron (65 MG 325 mg PO BID 04/07/21 02/14/22 Elemental)] Metoprolol Succinate (ER) [Toprol 100 mg PO BID 04/07/21 02/14/22 XL] Amiodarone HCl [Pacerone] 200 mg PO DAILY 07/20/21 02/14/22 Insulin NPH Human Isophane 35 units SQ DAILY 07/20/21 02/14/22 [NovoLIN N] lisinopriL [Zestril] 2.5 mg PO DAILY 07/20/21 02/14/22 Empagliflozin [Jardiance] 25 mg PO DAILY 01/30/22 02/14/22 Apixaban [Eliquis] 5 mg PO BID 02/14/22 02/14/22 Previous Rx's Medication Instructions Recorded Pantoprazole Sodium [Protonix] 40 mg PO SHAKA #30 jude. 11/10/19 Aspirin 81 mg PO DAILY #30 03/16/22 Atorvastatin [Lipitor] 40 mg PO HS #30 tab 02/05/22 Clopidogrel [Plavix] 75 mg PO DAILY #30 tab 02/05/22 Allergies Allergy/AdvReac Type Severity Reaction Status Date / Time bismuth subsalicylate AdvReac Severe ABD PAIN, Verified 03/06/22 00:23 [From Pepto-Bismol] N/V molasses AdvReac Severe Nausea & Uncoded 03/06/22 00:23 Vomiting Review of Systems ROS Statement: Those systems with pertinent positive or pertinent negative responses have been documented in the HPI. ROS Other: All systems not noted in ROS Statement are negative. Constitutional: Denies: fever, chills Respiratory: Reports: as per HPI, cough. 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3. Laser/Radiation Tx for Prosate CA. EXC Rt Upper Arm Melanoma, Basal Cell EXC FROM SCALP. PTCA 06/15/15, INDIRA 08/22/15. ABD AORTOGRAM W/ RUNOFF 12/10/15, EGD, colonoscopy with arteriovenous malformation. LEFT NECK BASAL CELL CA REMOVED Past Anesthesia/Blood Transfusion Reactions: No Reported Reaction Date of Last Stent Placement:: 1999 Type of Cardiac Device: AICD Device Placement Date:: 04/01/2016-[employer] [place]-(model [id number] pt) Past Psychological History: No Psychological Hx Reported Smoking Status: Former smoker Past Alcohol Use History: Rare Past Drug Use History: None Reported - Past Family History Father Family Medical History: Diabetes Mellitus, Myocardial Infarction (PA) Additional Family Medical History / Comment(s): Father of a PA at age 64yrs. Mother History Unknown: Yes Family Medical History: No Reported History Additional Family Medical History / Comment(s): Mother at age 68 yrs. General Exam Limitations: no limitations General appearance: alert, in no apparent distress Head exam: Present: atraumatic, normocephalic Eye exam: Present: other (Conjunctival pallor). Absent: scleral icterus, conjunctival injection ENT exam: Present: other (mucosal pallor) Neck exam: Present: normal inspection Respiratory exam: Present: normal lung sounds bilaterally, rhonchi. Absent: respiratory distress, wheezes, rales, stridor Cardiovascular Exam: Present: regular rate, normal rhythm, normal heart sounds. Absent: systolic murmur, diastolic murmur, rubs, gallop GI/Abdominal exam: Present: soft. Absent: distended, tenderness, guarding, ruth ound, rigid, mass Extremities exam: Present: normal inspection, normal capillary refill. Absent: pedal edema, calf tenderness Back exam: Present: normal inspection. Absent: CVA tenderness (R), CVA tenderness (L) Neurological exam: Present: alert Skin exam: Present: warm, dry, intact, pallor. Absent: rash Course Vital Signs 03/06/22 03/06/22 03/06/22 00:15 02:24 02:55 Temperature 97.8 F 97.9 F Pulse Rate 96 101 H 98 Respiratory 20 14 16 Rate Blood Pressure 103/61 96/66 99/58 O2 Sat by Pulse 100 98 Oximetry 03/06/22 03/06/22 03/06/22 03:05 03:35 04:51 Temperature 98.2 F 97.1 F L 97.9 F Pulse Rate 97 99 103 H Respiratory 14 14 20 Rate Blood Pressure 99/54 100/60 111/67 O2 Sat by Pulse 97 97 Oximetry 03/06/22 06:22 Temperature Pulse Rate 103 H Respiratory 26 H Rate Blood Pressure 105/67 O2 Sat by Pulse 95 Oximetry Medical Decision Making - Lab Data Result diagrams: 03/06/22 00:31 03/06/22 00:31 Lab Results 03/06/22 03/06/22 03/06/22 Range/Units 00:25 00:31 00:31 WBC 15.7 H (3.8-10.6) k/uL RBC 2.32 L (4.30-5.90) m/uL Hgb 6.1 L* (13.0-17.5) gm/dL Hct 20.0 L (39.0-53.0) % MCV 86.1 (80.0-100.0) fL MCH 26.5 (25.0-35.0) pg MCHC 30.8 L (31.0-37.0) g/dL RDW 17.7 H (11.5-15.5) % Plt Count 381 (150-450) k/uL MPV 9.0 Neutrophils % 85 % Lymphocytes % 6 % Monocytes % 5 % Eosinophils % 1 % Basophils % 0 % Neutrophils # 13.4 H (1.3-7.7) k/uL Lymphocytes # 1.0 (1.0-4.8) k/uL Monocytes # 0.8 (0-1.0) k/uL Eosinophils # 0.1 (0-0.7) k/uL Basophils # 0.0 (0-0.2) k/uL Hypochromasia Marked Poikilocytosis Moderate Anisocytosis Slight APTT 24.8 (22.0-30.0) sec Sodium (137-145) mmol/L Potassium (3.5-5.1) mmol/L Chloride (98-107) mmol/L Carbon Dioxide (22-30) mmol/L Anion Gap mmol/L BUN (9-20) mg/dL Creatinine (0.66-1.25) mg/dL Est GFR (CKD-EPI)AfAm (>60 ml/min/1.73 sqM) Est GFR (CKD-EPI)NonAf (>60 ml/min/1.73 sqM) Glucose (74-99) mg/dL Lactic Ac Sepsis Rflx Plasma Lactic Acid Nikolay (0.7-2.0) mmol/L Calcium (8.4-10.2) mg/dL Total Bilirubin (0.2-1.3) mg/dL AST (17-59) U/L ALT (4-49) U/L Alkaline Phosphatase (38-126) U/L Troponin I (0.000-0.034) ng/mL Total Protein (6.3-8.2) g/dL Albumin (3.5-5.0) g/dL Stool Occult Blood (Negative) Blood Type B Positive Blood Type Recheck B Pos Bld Type Recheck Status No Antibody Screen NEGATIVE Crossmatch See Detail Spec Expiration Date 03/09/2022 - 232403/06/22 03/06/22 03/06/22 Range/Units 00:31 00:31 00:31 WBC (3.8-10.6) k/uL RBC (4.30-5.90) m/uL Hgb (13.0-17.5) gm/dL Hct (39.0-53.0) % MCV (80.0-100.0) fL MCH (25.0-35.0) pg MCHC (31.0-37.0) g/dL RDW (11.5-15.5) % Plt Count (150-450) k/uL MPV Neutrophils % % Lymphocytes % % Monocytes % % Eosinophils % % Basophils % % Neutrophils # (1.3-7.7) k/uL Lymphocytes # (1.0-4.8) k/uL Monocytes # (0-1.0) k/uL Eosinophils # (0-0.7) k/uL Basophils # (0-0.2) k/uL Hypochromasia Poikilocytosis Anisocytosis APTT (22.0-30.0) sec Sodium 126 L (137-145) mmol/L Potassium 4.3 (3.5-5.1) mmol/L Chloride 93 L (98-107) mmol/L Carbon Dioxide 21 L (22-30) mmol/L Anion Gap 12 mmol/L BUN 41 H (9-20) mg/dL Creatinine 1.20 (0.66-1.25) mg/dL Est GFR (CKD-EPI)AfAm 65 (>60 ml/min/1.73 sqM) Est GFR (CKD-EPI)NonAf 56 (>60 ml/min/1.73 sqM) Glucose 238 H (74-99) mg/dL Lactic Ac Sepsis Rflx Plasma Lactic Acid Nikolay 2.8 H* (0.7-2.0) mmol/L Calcium 8.2 L (8.4-10.2) mg/dL Total Bilirubin 0.4 (0.2-1.3) mg/dL AST 25 (17-59) U/L ALT 13 (4-49) U/L Alkaline Phosphatase 71 (38-126) U/L Troponin I 0.075 H* (0.000-0.034) ng/mL Total Protein 5.5 L (6.3-8.2) g/dL Albumin 3.0 L (3.5-5.0) g/dL Stool Occult Blood (Negative) Blood Type Blood Type Recheck Bld Type Recheck Status Antibody Screen Crossmatch Spec Expiration Date 03/06/22 03/06/22 03/06/22 Range/Units 01:27 02:28 04:18 WBC (3.8-10.6) k/uL RBC (4.30-5.90) m/uL Hgb (13.0-17.5) gm/dL Hct (39.0-53.0) % MCV (80.0-100.0) fL MCH (25.0-35.0) pg MCHC (31.0-37.0) g/dL RDW (11.5-15.5) % Plt Count (150-450) k/uL MPV Neutrophils % % Lymphocytes % % Monocytes % % Eosinophils % % Basophils % % Neutrophils # (1.3-7.7) k/uL Lymphocytes # (1.0-4.8) k/uL Monocytes # (0-1.0) k/uL Eosinophils # (0-0.7) k/uL Basophils # (0-0.2) k/uL Hypochromasia Poikilocytosis Anisocytosis APTT (22.0-30.0) sec Sodium (137-145) mmol/L Potassium (3.5-5.1) mmol/L Chloride (98-107) mmol/L Carbon Dioxide (22-30) mmol/L Anion Gap mmol/L BUN (9-20) mg/dL Creatinine (0.66-1.25) mg/dL Est GFR (CKD-EPI)AfAm (>60 ml/min/1.73 sqM) Est GFR (CKD-EPI)NonAf (>60 ml/min/1.73 sqM) Glucose (74-99) mg/dL Lactic Ac Sepsis Rflx Y Plasma Lactic Acid Nikolay 2.2 H* (0.7-2.0) mmol/L Calcium (8.4-10.2) mg/dL Total Bilirubin (0.2-1.3) mg/dL AST (17-59) U/L ALT (4-49) U/L Alkaline Phosphatase (38-126) U/L Troponin I (0.000-0.034) ng/mL Total Protein (6.3-8.2) g/dL Albumin (3.5-5.0) g/dL Stool Occult Blood Positive (Negative) Blood Type Blood Type Recheck Bld Type Recheck Status Antibody Screen Crossmatch Spec Expiration Date 03/06/22 Range/Units 05:05 WBC (3.8-10.6) k/uL RBC (4.30-5.90) m/uL Hgb (13.0-17.5) gm/dL Hct (39.0-53.0) % MCV (80.0-100.0) fL MCH (25.0-35.0) pg MCHC (31.0-37.0) g/dL RDW (11.5-15.5) % Plt Count (150-450) k/uL MPV Neutrophils % % Lymphocytes % % Monocytes % % Eosinophils % % Basophils % % Neutrophils # (1.3-7.7) k/uL Lymphocytes # (1.0-4.8) k/uL Monocytes # (0-1.0) k/uL Eosinophils # (0-0.7) k/uL Basophils # (0-0.2) k/uL Hypochromasia Poikilocytosis Anisocytosis APTT (22.0-30.0) sec Sodium (137-145) mmol/L Potassium (3.5-5.1) mmol/L Chloride (98-107) mmol/L Carbon Dioxide (22-30) mmol/L Anion Gap mmol/L BUN (9-20) mg/dL Creatinine (0.66-1.25) mg/dL Est GFR (CKD-EPI)AfAm (>60 ml/min/1.73 sqM) Est GFR (CKD-EPI)NonAf (>60 ml/min/1.73 sqM) Glucose (74-99) mg/dL Lactic Ac Sepsis Rflx Y Plasma Lactic Acid Nikolay (0.7-2.0) mmol/L Calcium (8.4-10.2) mg/dL Total Bilirubin (0.2-1.3) mg/dL AST (17-59) U/L ALT (4-49) U/L Alkaline Phosphatase (38-126) U/L Troponin I (0.000-0.034) ng/mL Total Protein (6.3-8.2) g/dL Albumin (3.5-5.0) g/dL Stool Occult Blood (Negative) Blood Type Blood Type Recheck Bld Type Recheck Status Antibody Screen Crossmatch Spec Expiration Date Disposition Clinical Impression: GI bleed, Anemia, Hyponatremia Disposition: ADMITTED IP TO THIS HOSP Condition: Fair
[2022-03-06 00:57] LABS: HGB 6.1 gm/dL (13.0-17.5)
[2022-03-06 01:35] LABS: Calcium 8.2 mg/dL (8.4-10.2); Potassium 4.3 mmol/L (3.5-5.1); Total Bilirubin 0.4 mg/dL (0.2-1.3); Total Protein 5.5 g/dL (6.3-8.2)
[2022-03-06] MEDS ORDERED: SODIUM CHLORIDE 0.9% 500 ML 500 ML IV STA (02:29)
--- NOTE | 2022-03-06 02:56 | XR ---
EXAMINATION TYPE: XR chest 1V DATE OF EXAM: 03/06/2022 COMPARISON: 02/14/2022 HISTORY: Cough TECHNIQUE: Single view FINDINGS: There is coarse interstitial densities in the lungs. There is poor inspiration. There is le ft axillary pacemaker. No pleural effusion. There are chest leads. There is pulmonary vascular conges tion. IMPRESSION: Pulmonary congestion increased compared to last exam and consistent with some congestive heart failure. No pulmonary consolidation.
[2022-03-06] MEDS ORDERED: NALOXONE 0.4 MG/ML 1 ML VIAL IV PRN (05:26)
[2022-03-06] MEDS ORDERED: FUROSEMIDE 10 MG/ML 2 ML VIAL IV STA (07:18)
[2022-03-06] MEDS ORDERED: PANTOPRAZOLE 40 MG TABLET PO SCH (07:30)
[2022-03-06] MEDS: SPIRONOLACTONE 25 MG TAB PO SCH (08:37)
[2022-03-06] MEDS: EZETIMIBE 10 MG TAB PO SCH ×2 (08:37→08:38)
[2022-03-06] MEDS: SODIUM CHLORIDE 0.9% 1,000 ML IV SCH (08:37)
[2022-03-06] MEDS: METOPROLOL SUCCINATE (ER) 100 MG TAB.ER.24H PO SCH ×2 (08:38→19:57)
[2022-03-06] MEDS: AMIODARONE 200 MG TAB PO SCH (08:38)
[2022-03-06] MEDS ORDERED: PANTOPRAZOLE 40 MG/10 ML VIAL IV SCH (09:00)
--- NOTE | 2022-03-06 11:03 | P.GSCN ---
History of Present Illness Consult date: 03/06/22 Reason for Consult: GI bleed History of present illness: This is an 81-year-old male who presented to the emergency room. Patient was found to be severely anemic. Patient has a known history of anemia. He's had some dark stools however he is on iron replacement as well. 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 HEART STENTS X3. Laser/Radiation Tx for Prosate CA. EXC Rt Upper Arm Melanoma, Basal Cell EXC FROM SCALP. PTCA 06/15/15, INDIRA 08/22/15. ABD AORTOGRAM W/ RUNOFF 12/10/15, EGD, colonoscopy with arteriovenous malformation. LEFT NECK BASAL CELL CA REMOVED Past Anesthesia/Blood Transfusion Reactions: No Reported Reaction Date of Last Stent Placement:: 1999 Type of Cardiac Device: AICD Device Placement Date:: 04/01/2016-[employer] [place]-(model [id number] pt) Past Psychological History: No Psychological Hx Reported Smoking Status: Former smoker Past Alcohol Use History: Rare Past Drug Use History: None Reported - Past Family History Father Family Medical History: Diabetes Mellitus, Myocardial Infarction (PR) Additional Family Medical History / Comment(s): Father of a PR at age 64yrs. Mother History Unknown: Yes Family Medical History: No Reported History Additional Family Medical History / Comment(s): Mother at age 68 yrs. Medications and Allergies Home Medications Medication Instructions Recorded Confirmed Type gemfibroziL [Lopid] 600 mg PO BID@0900,2100 02/27/17 03/06/22 History Ezetimibe 10 mg PO HS@2100 11/04/1922 History Pantoprazole Sodium [Protonix] 40 mg PO RUDIFSShawn #30 tablet. 11/10/19 Rx Ferrous Sulfate [Iron (65 MG 325 mg PO BID@0900,209904/07/21 03/06/22 History Elemental)] Atorvastatin [Lipitor] 40 mg PO HS #30 tab 02/05/22 03/06/22 Rx Apixaban [Eliquis] 5 mg PO BID@0900,209902/14/22 03/06/22 History Clopidogrel [Plavix] 75 mg PO DAILY@0900 03/06/22 03/06/22 History Docusate [Colace] 100 mg PO BID@0900,209903/06/22 03/06/22 History Furosemide [Lasix] 20 mg PO DAILY@0600 03/06/22 03/06/22 History INSULIN LISPRO (humaLOG) [humaLOG] See Protocol SQ ACHS 03/06/22 03/06/22 History Insulin Glargine,Hum.rec.anlog 12 unit SQ HS@209903/06/22 03/06/22 History [Lantus Solostar Pen] Melatonin 3 mg PO HS@209903/06/22 03/06/22 History Metoprolol Tartrate [Lopressor] 50 mg PO DAILY@0900 03/06/22 03/06/22 History Polyethylene Glycol 3350 [Miralax] 17 gm PO BID@0900,209903/06/22 03/06/22 History Allergies Allergy/AdvReac Type Severity Reaction Status Date / Time bismuth subsalicylate AdvReac Severe ABD PAIN, Verified 03/06/22 07:20 [From Pepto-Bismol] N/V molasses AdvReac Severe Nausea & Uncoded 03/06/22 00:23 Vomiting Surgical - Exam Vital Signs Temp Pulse Resp BP Pulse Ox 97.8 F 96 20 103/61 100 03/06/22 00:15 03/06/22 00:15 03/06/22 00:15 03/06/22 00:15 03/06/22 00:15 - General well developed, no distress - Eyes PERRL - ENT normal pinna - Neck no masses - Respiratory normal expansion - Cardiovascular Rhythm: regular - Abdomen Abdomen: soft, non tender Results - Labs 03/06/22 00:31 03/06/22 00:31 Abnormal Lab Results - Last 24 Hours (Table) 03/06/22 03/06/22 03/06/22 Range/Units 00:25 00:31 00:31 WBC 15.7 H (3.8-10.6) k/uL RBC 2.32 L (4.30-5.90) m/uL Hgb 6.1 L* (13.0-17.5) gm/dL Hct 20.0 L (39.0-53.0) % MCHC 30.8 L (31.0-37.0) g/dL RDW 17.7 H (11.5-15.5) % Neutrophils # 13.4 H (1.3-7.7) k/uL Sodium 126 L (137-145) mmol/L Chloride 93 L (98-107) mmol/L Carbon Dioxide 21 L (22-30) mmol/L BUN 41 H (9-20) mg/dL Glucose 238 H (74-99) mg/dL Plasma Lactic Acid Nikolay (0.7-2.0) mmol/L Calcium 8.2 L (8.4-10.2) mg/dL Troponin I (0.000-0.034) ng/mL Total Protein 5.5 L (6.3-8.2) g/dL Albumin 3.0 L (3.5-5.0) g/dL Crossmatch See Detail 03/06/22 03/06/22 03/06/22 Range/Units 00:31 00:31 04:18 WBC (3.8-10.6) k/uL RBC (4.30-5.90) m/uL Hgb (13.0-17.5) gm/dL Hct (39.0-53.0) % MCHC (31.0-37.0) g/dL RDW (11.5-15.5) % Neutrophils # (1.3-7.7) k/uL Sodium (137-145) mmol/L Chloride (98-107) mmol/L Carbon Dioxide (22-30) mmol/L BUN (9-20) mg/dL Glucose (74-99) mg/dL Plasma Lactic Acid Nikolay 2.8 H* 2.2 H* (0.7-2.0) mmol/L Calcium (8.4-10.2) mg/dL Troponin I 0.075 H* (0.000-0.034) ng/mL Total Protein (6.3-8.2) g/dL Albumin (3.5-5.0) g/dL Crossmatch 03/06/22 Range/Units 07:44 WBC (3.8-10.6) k/uL RBC (4.30-5.90) m/uL Hgb (13.0-17.5) gm/dL Hct (39.0-53.0) % MCHC (31.0-37.0) g/dL RDW (11.5-15.5) % Neutrophils # (1.3-7.7) k/uL Sodium (137-145) mmol/L Chloride (98-107) mmol/L Carbon Dioxide (22-30) mmol/L BUN (9-20) mg/dL Glucose (74-99) mg/dL Plasma Lactic Acid Nikolay 2.8 H* (0.7-2.0) mmol/L Calcium (8.4-10.2) mg/dL Troponin I (0.000-0.034) ng/mL Total Protein (6.3-8.2) g/dL Albumin (3.5-5.0) g/dL Crossmatch Diabetes panel 03/06/22 Range/Units 00:31 Sodium 126 L (137-145) mmol/L Potassium 4.3 (3.5-5.1) mmol/L Chloride 93 L (98-107) mmol/L Carbon Dioxide 21 L (22-30) mmol/L BUN 41 H (9-20) mg/dL Creatinine 1.20 (0.66-1.25) mg/dL Glucose 238 H (74-99) mg/dL Calcium 8.2 L (8.4-10.2) mg/dL AST 25 (17-59) U/L ALT 13 (4-49) U/L Alkaline Phosphatase 71 (38-126) U/L Total Protein 5.5 L (6.3-8.2) g/dL Albumin 3.0 L (3.5-5.0) g/dL Calcium panel 03/06/22 Range/Units 00:31 Calcium 8.2 L (8.4-10.2) mg/dL Albumin 3.0 L (3.5-5.0) g/dL Pituitary panel 03/06/22 Range/Units 00:31 Sodium 126 L (137-145) mmol/L Potassium 4.3 (3.5-5.1) mmol/L Chloride 93 L (98-107) mmol/L Carbon Dioxide 21 L (22-30) mmol/L BUN 41 H (9-20) mg/dL Creatinine 1.20 (0.66-1.25) mg/dL Glucose 238 H (74-99) mg/dL Calcium 8.2 L (8.4-10.2) mg/dL Adrenal panel 03/06/22 Range/Units 00:31 Sodium 126 L (137-145) mmol/L Potassium 4.3 (3.5-5.1) mmol/L Chloride 93 L (98-107) mmol/L Carbon Dioxide 21 L (22-30) mmol/L BUN 41 H (9-20) mg/dL Creatinine 1.20 (0.66-1.25) mg/dL Glucose 238 H (74-99) mg/dL Calcium 8.2 L (8.4-10.2) mg/dL Total Bilirubin 0.4 (0.2-1.3) mg/dL AST 25 (17-59) U/L ALT 13 (4-49) U/L Alkaline Phosphatase 71 (38-126) U/L Total Protein 5.5 L (6.3-8.2) g/dL Albumin 3.0 L (3.5-5.0) g/dL Assessment and Plan Assessment: Anemia, GI bleed. We'll perform EGD.
[2022-03-06] MEDS ORDERED: PROPOFOL 10 MG/ML 20 ML VIAL IV ONE (11:04)
[2022-03-06] MEDS ORDERED: IV FLUID CONTINUATION 1,000 ML IV ONE ×2 (11:04)
[2022-03-06] MEDS ORDERED: LIDOCAINE 2% INJ 20 MG/ML (2 ML VIAL) ONE (11:04)
--- NOTE | 2022-03-06 11:17 | P.OP ---
Date of Procedure: 03/06/22 Preoperative Diagnosis: GI bleed Anemia Postoperative Diagnosis: Duodenitis Mild antral gastritis No significant esophagitis No evidence of any active upper GI bleed Procedure(s) Performed: EGD Anesthesia: MAC Surgeon: Matthew Lane Pathology: other (Duodenum, antrum) Condition: stable Disposition: PACU Description of Procedure: The patient's placed on the endoscopy table in the lateral position. He received IV sedation. The gastroscope placed oropharynx passed in the esophagus and stomach. The placed through the pylorus. The first and second portion of the duodenum was examined. There was some inflammation of the duodenum. This was biopsied. There is no active bleeding of the duodenum. Scope was then brought back the antrum this was mildly inflamed. A biopsies performed. Scope was retroflexed the remainder the stomach appeared normal. The GE junction was at 47 is. The distal esophagus appeared normal. The proximal esophagus appeared normal. Scope withdrawn for patient. There was no active upper GI bleed source. Patient will need to be prepped for colonoscopy once stable.
[2022-03-06 12:02] LABS: Glucose,Whole Blood 263 mg/dL (75-99)
[2022-03-06] MEDS: INSULIN ASPART (NovoLOG) 100 UNIT/ML VIAL SQ SCH ×3 (12:16→21:11)
[2022-03-06] MEDS ORDERED: SODIUM CHLORIDE 0.9% 500 ML 500 ML IV ONE (14:15)
[2022-03-06 14:46] LABS: Anisocytosis Slight; Basophils % (A) 0 %; Eosinophils % (A) 0 %; HCT 23.4 % (39.0-53.0); HGB 7.2 gm/dL (13.0-17.5); Hypochromasia Marked; Lymphocytes # (A) 0.8 k/uL (1.0-4.8); Lymphocytes % (A) 6 %; MCH 27.4 pg (25.0-35.0); MCHC 30.7 g/dL (31.0-37.0); MCV 89.4 fL (80.0-100.0); Mean Platelet Volume 9.6; Monocytes # (A) 0.7 k/uL (0-1.0); Monocytes % (A) 6 %; Neutrophils # (A) 11.5 k/uL (1.3-7.7); Neutrophils % (A) 86 %; Platelet Count 343 k/uL (150-450); Poikilocytosis Moderate; RBC 2.62 m/uL (4.30-5.90); RDW 16.9 % (11.5-15.5); WBC 13.3 k/uL (3.8-10.6)
[2022-03-06 15:00] LABS: Calcium 7.7 mg/dL (8.4-10.2); Potassium 4.4 mmol/L (3.5-5.1)
[2022-03-06 16:45] LABS: Glucose,Whole Blood 192 mg/dL (75-99)
--- NOTE | 2022-03-06 16:59 | P.HPIM ---
History of Present Illness H&P Date: 03/06/22 Chief Complaint: Low hemoglobin level Patient is a 81-year-old male with a known history of hypertension, hyperlipidemia, history of GI bleed, diabetes type 2, history of basal cell and melanoma, microcytic iron deficiency anemia and currently on iron supplementation at home, history of NC, coronary with history of stent placement, AICD placement, chronic CHF ejection fraction 30 to 35% and femoropopliteal PTCA with stent placement x2 and previous history of smoking presents to ER from [facility] due to low hemoglobin level. Patient's hemoglobin on admission was 6.1. Patient was seen in the ER on 02/14/2022 with a hemoglobin of 6.6 and was transferred to [facility] since there was no GI coverage at that time. Patient had normal hemoglobin level 11.2 on 02/04/2022. Patient had colonoscopy at [facility] and was discharged back to [facility]. Patient has been having dark stools and is also taking iron supplementation at home. No complaints of abdominal pain. No hematemesis. No nausea vomiting. Denies any complaints of shortness of breath. No fever no chills. No chest pain. No leg swelling. No cough or sputum production. Patient is not any blood thinners. On admission hemoglobin 6.1 WBC 15.7 and platelets 381 Sodium 126 potassium 4.3 chloride 93 bicarbonate 21 BUN 41 creatinine 1.20 and lactic acid 2.8 blood sugar is 238 and troponin 0.075 FOBT positive Review of Systems Constitutional: Patient denies any fever or chills . Generalized weakness.. Abdomen: Patient denied nausea vomiting and diarrhea and abdominal pain. Dark stools. Cardiovascular: Patient denies any chest pain or short of breath no palpitations. Respiratory: patient denied any cough is from production. No shortness of breath Neurologic: Patient denied any numbness or tingling headache. Musculoskeletal: Patient denies any complaints of joint swelling or deformity. Skin: Negative Psychiatric: Negative Endocrine: No heat or cold intolerance. No recent weight gain. Genitourinary: No dysuria or hematuria. All other 14 point ROS negative except the above Past Medical History Past Medical History: Cancer, Diabetes Mellitus, GERD/Reflux, GI Bleed, Hyperlipidemia, Hypertension, Myocardial Infarction (NC), Prostate Disorder, Skin Disorder, Vascular Disorder Additional Past Medical History / Comment(s): HX PROSTATE CA with radiation and laser sx, & Basal Cell and Melanoma microcytic iron deficiency anemia, duodenitis Last Myocardial Infarction Date:: 1999 History of Any Multi-Drug Resistant Organisms: None Reported Past Surgical History: Adenoidectomy, AICD, Cardiac Valve Replacement, Heart Catheterization, Heart Catheterization With Stent, Tonsillectomy Additional Past Surgical History / Comment(s): 12/12/15 R fempop PTCA with stent X2.Other surgical hx 09/2015 [place] [facility] [place] STENTS X3. Laser/Radiation Tx for Prosate CA. EXC Rt Upper Arm Melanoma, Basal Cell EXC FROM SCALP. PTCA 06/15/15, INDIRA 08/22/15. ABD AORTOGRAM W/ RUNOFF 12/10/15, EGD, colonoscopy with arteriovenous malformation. LEFT NECK BASAL CELL CA REMOVED Past Anesthesia/Blood Transfusion Reactions: No Reported Reaction Date of Last Stent Placement:: 1999 Type of Cardiac Device: AICD Device Placement Date:: 04/01/2016-[facility] [place]-(model [id number] pt) Past Psychological History: No Psychological Hx Reported Smoking Status: Former smoker Past Alcohol Use History: Rare Past Drug Use History: None Reported - Past Family History Father Family Medical History: Diabetes Mellitus, Myocardial Infarction (NC) Additional Family Medical History / Comment(s): Father of a NC at age 64yrs. Mother History Unknown: Yes Family Medical History: No Reported History Additional Family Medical History / Comment(s): Mother at age 68 yrs. Medications and Allergies Home Medications Medication Instructions Recorded Confirmed Type gemfibroziL [Lopid] 600 mg PO BID@0900,209902/27/17 03/06/22 History Ezetimibe 10 mg PO HS@209911/04/19 03/06/22 History Pantoprazole Sodium [Protonix] 40 mg PO LAVONNE-BRKFST #30 tablet. 11/10/19 03/06/22 Rx Ferrous Sulfate [Iron (65 MG 325 mg PO BID@0900,209904/07/21 03/06/22 History Elemental)] Atorvastatin [Lipitor] 40 mg PO HS #30 tab 02/05/22 03/06/22 Rx Apixaban [Eliquis] 5 mg PO BID@0900,209902/14/22 03/06/22 History Clopidogrel [Plavix] 75 mg PO DAILY@0900 03/06/22 03/06/22 History Docusate [Colace] 100 mg PO BID@0900,209903/06/22 03/06/22 History Furosemide [Lasix] 20 mg PO DAILY@0600 03/06/22 03/06/22 History INSULIN LISPRO (humaLOG) [humaLOG] See Protocol SQ ACHS 03/06/22 03/06/22 History Insulin Glargine,Hum.rec.anlog 12 unit SQ HS@209903/06/22 03/06/22 History [Lantus Solostar Pen] Melatonin 3 mg PO HS@209903/06/22 03/06/22 History Metoprolol Tartrate [Lopressor] 50 mg PO DAILY@0900 03/06/22 03/06/22 History Polyethylene Glycol 3350 [Miralax] 17 gm PO BID@0900,2100 03/06/22 03/06/22 History Allergies Allergy/AdvReac Type Severity Reaction Status Date / Time bismuth subsalicylate AdvReac Severe ABD PAIN, Verified 03/06/22 07:20 [From Pepto-Bismol] N/V molasses AdvReac Severe Nausea & Uncoded 03/06/22 00:23 Vomiting Physical Exam Vitals: Vital Signs Temp Pulse Resp BP Pulse Ox 03/06/22 08:35 96 20 113/64 98 03/06/22 06:22 103 H 26 H 105/67 95 03/06/22 04:51 97.9 F 103 H 20 111/67 03/06/22 03:35 97.1 F L 99 14 100/60 97 03/06/22 03:05 98.2 F 97 14 99/54 97 03/06/22 02:55 97.9 F 98 16 99/58 03/06/22 02:24 101 H 14 96/66 98 03/06/22 00:15 97.8 F 96 20 103/61 100 Intake and Output 03/05/22 03/06/22 03/06/22 22:59 06:59 14:59 Intake Total 310 Balance 310 Intake: Blood Product 310 Rc As-1 Unit 310 [id number] Other: Weight 93.4 kg PHYSICAL EXAMINATION: Patient is lying in the bed comfortably, no acute distress, awake alert and oriented.. HEENT: Normocephalic. Neck is supple. Pupils reactive. Nostrils clear. Oral cavity is moist. Neck reveals no JVD, carotid bruits, or thyromegaly. CHEST EXAMINATION: Trachea is central. Symmetrical expansion. Scattered crackles. No wheezing. Nonlabored breathing.. CARDIAC: Normal S1, S2 with no gallops. No murmurs ABDOMEN: Soft. Bowel sounds normal. No organomegaly. No abdominal bruits. Extremities: reveal no edema. No clubbing or cyanosis Neurologically awake, alert, oriented x3 with well-coordinated movements. No focal deficits noted Skin: No rash or skin lesions. Psychiatric: Coperative. Nonsuicidal Musculoskeletal: No joint swelling or deformity. Normal range of motion. Results CBC & Chem 7: 03/06/22 14:25 03/06/22 14:25 Labs: Abnormal Lab Results - Last 24 Hours (Table) 03/06/22 03/06/22 03/06/22 Range/Units 00:25 00:31 00:31 WBC 15.7 H (3.8-10.6) k/uL RBC 2.32 L (4.30-5.90) m/uL Hgb 6.1 L* (13.0-17.5) gm/dL Hct 20.0 L (39.0-53.0) % MCHC 30.8 L (31.0-37.0) g/dL RDW 17.7 H (11.5-15.5) % Neutrophils # 13.4 H (1.3-7.7) k/uL Sodium 126 L (137-145) mmol/L Chloride 93 L (98-107) mmol/L Carbon Dioxide 21 L (22-30) mmol/L BUN 41 H (9-20) mg/dL Glucose 238 H (74-99) mg/dL Plasma Lactic Acid Nikolay (0.7-2.0) mmol/L Calcium 8.2 L (8.4-10.2) mg/dL Troponin I (0.000-0.034) ng/mL Total Protein 5.5 L (6.3-8.2) g/dL Albumin 3.0 L (3.5-5.0) g/dL Crossmatch See Detail 03/06/22 03/06/22 03/06/22 Range/Units 00:31 00:31 04:18 WBC (3.8-10.6) k/uL RBC (4.30-5.90) m/uL Hgb (13.0-17.5) gm/dL Hct (39.0-53.0) % MCHC (31.0-37.0) g/dL RDW (11.5-15.5) % Neutrophils # (1.3-7.7) k/uL Sodium (137-145) mmol/L Chloride (98-107) mmol/L Carbon Dioxide (22-30) mmol/L BUN (9-20) mg/dL Glucose (74-99) mg/dL Plasma Lactic Acid Nikolay 2.8 H* 2.2 H* (0.7-2.0) mmol/L Calcium (8.4-10.2) mg/dL Troponin I 0.075 H* (0.000-0.034) ng/mL Total Protein (6.3-8.2) g/dL Albumin (3.5-5.0) g/dL Crossmatch 03/06/22 Range/Units 07:44 WBC (3.8-10.6) k/uL RBC (4.30-5.90) m/uL Hgb (13.0-17.5) gm/dL Hct (39.0-53.0) % MCHC (31.0-37.0) g/dL RDW (11.5-15.5) % Neutrophils # (1.3-7.7) k/uL Sodium (137-145) mmol/L Chloride (98-107) mmol/L Carbon Dioxide (22-30) mmol/L BUN (9-20) mg/dL Glucose (74-99) mg/dL Plasma Lactic Acid Nikolay 2.8 H* (0.7-2.0) mmol/L Calcium (8.4-10.2) mg/dL Troponin I (0.000-0.034) ng/mL Total Protein (6.3-8.2) g/dL Albumin (3.5-5.0) g/dL Crossmatch Thrombosis Risk Factor Assmnt - DVT/VTE Prophylaxis DVT/VTE Prophylaxis: Mechanical Prophylaxis ordered Assessment and Plan Assessment: Acute GI bleed with hemoglobin 6.1 on admission. Status post EGD showed mild gastritis and no active bleeding noted. Acute blood loss anemia Lactic acidosis 2.8 on admission Mildly elevated troponin level/troponin leak Chronic CHF with systolic dysfunction. ejection fraction 30 to 35%. status post AICD placement History of NC Coronary disease with history of stent placement GERD Hyperlipidemia Diabetes type 2 uncontrolled with hyperglycemia Hypertension patient is currently hypotensive History of prostate cancer status post laser/radiation History of basal cell and melanoma removed History of aortic valve replacement Peripheral vascular disease with femoropopliteal PTCA with stent placement History of abdominal aortogram with runoff Prior history of smoking GI prophylaxis on PPI and DVT prophylaxis with SCDs Plan: Patient will be continued on Protonix IV, changed to twice daily. Patient is s/p EGD by general surgery which showed mild gastritis. No active bleeding was noted. Continue with IV hydration and monitor blood pressure closely. Patient is currently hypotensive. Repeat hemoglobin level after endoscopy is 7.2. Follow-up H&H closely. Surgery is planning for colonoscopy once medically stable. Hold blood pressure medications. Continue to follow closely. Prognosis is guarded at this time. Time with Patient: Greater than 30
[2022-03-06 17:02] LABS: Anisocytosis Slight; HCT 23.6 % (39.0-53.0); HGB 7.1 gm/dL (13.0-17.5); Hypochromasia Marked; MCH 27.2 pg (25.0-35.0); MCHC 30.3 g/dL (31.0-37.0); MCV 89.5 fL (80.0-100.0); Mean Platelet Volume 10.5; Platelet Count 324 k/uL (150-450); Poikilocytosis Moderate; RBC 2.63 m/uL (4.30-5.90); RDW 16.5 % (11.5-15.5); WBC 14.6 k/uL (3.8-10.6)
[2022-03-06] MEDS: MIDODRINE 5 MG TAB PO SCH (17:23)
--- NOTE | 2022-03-06 19:17 | CT ---
EXAMINATION TYPE: CT angio abdomen pelvis CT DLP: 2494.2 mGycm, Automated exposure control for dose reduction was used. DATE OF EXAM: 03/06/2022 5:57 PM COMPARISON: Chest radiograph same date CT abdomen pelvis 07/23/2021. CLINICAL INDICATION:Male, 81 years old with history of r/o bleed ruq tenderness; RUQ abdominal tender ness. TECHNIQUE: Multiple thin slice sub-millimeter images were obtained through the abdomen, pelvis, and l ower extremities after administration of contrast. Patient was given Isovue 370, 80 cc intravenously . 3-D reconstructed images and maximum intensity projection images were obtained of the abdomen, pel vis, and lower extremities. FINDINGS: Lower thorax: Aortic valve repair changes. Moderate atherosclerosis of the coronary arteries. AICD co nduction leads partially visualized drain in the right ventricle right atrium and calcification in th e middle of the right ventricle papillary muscle. Multiple surgical clips are seen projecting the per icardium. Small bilateral pleural effusions. CTA Abdomen and pelvis: The abdominal aorta does not demonstrate aneurysmal dilatation. Moderate to s evere atherosclerotic plaquing is identified within the abdominal aorta. The origins of the superior mesenteric artery, renal arteries, inferior mesenteric artery, and celiac axis are patent. The estefania c vessels are normal in morphology. VISCERA: LIVER: Unremarkable GALLBLADDER AND BILE DUCTS: Gallstones layering within the lumen.. Mild fat stranding changes around the gallbladder fossa. No evidence of ductal dilatation. PANCREAS: Unremarkable. SPLEEN: Unremarkable. ADRENAL GLANDS: Unremarkable. KIDNEYS AND URETERS: No evidence of hydronephrosis or renal calculus. The ureters are unremarkable. PELVIS BLADDER: Unremarkable REPRODUCTIVE: Unremarkable. ABDOMEN & PELVIS STOMACH AND BOWEL: No evidence of bowel obstruction. PERITONEUM: No evidence of pneumoperitoneum or free fluid. VASCULATURE: No evidence of aortic aneurysm. Scattered atherosclerosis of the arterial vasculature. MUSCULOSKELETAL: No acute osseous abnormalities with scoliosis changes throughout the thoracolumbar s pine. There is scattered osteophyte formation and disc space narrowing with Schmorl's nodes. LYMPH NODES: No gross evidence for lymphadenopathy. SOFT TISSUE/ABDOMINAL WALL: Unremarkable IMPRESSION 1. Inflammatory changes around the gallbladder with cholelithiasis concerning for acute cholecystitis . 2. No evidence of vascular occlusion. 3. Moderate to severe atherosclerotic disease involving abdominal aorta and arterial vasculature. 4. Postsurgical changes involving the heart and mediastinum. 5. Small bilateral pleural effusions.
[2022-03-06] MEDS: ATORVASTATIN 40 MG TAB PO SCH (19:57)
[2022-03-06] MEDS: PANTOPRAZOLE 40 MG/10 ML VIAL IVP SCH (19:57)
[2022-03-06 20:43] LABS: Glucose,Whole Blood 185 mg/dL (75-99)
[2022-03-06] MEDS: INSULIN DETEMIR (LEVEMIR) 100 UNIT/ML SYR SQ SCH (21:10)
[2022-03-07 02:41] LABS: Anisocytosis Slight; HCT 27.1 % (39.0-53.0); HGB 8.4 gm/dL (13.0-17.5); Hypochromasia Marked; MCH 27.8 pg (25.0-35.0); MCV 89.5 fL (80.0-100.0); Mean Platelet Volume 9.7; Platelet Count 315 k/uL (150-450); Poikilocytosis Marked; RBC 3.02 m/uL (4.30-5.90); RDW 16.2 % (11.5-15.5); WBC 15.1 k/uL (3.8-10.6)
[2022-03-07 02:42] LABS: Calcium 7.8 mg/dL (8.4-10.2); Potassium 4.3 mmol/L (3.5-5.1)
[2022-03-07 06:22] LABS: Glucose,Whole Blood 119 mg/dL (75-99)
[2022-03-07] MEDS: INSULIN ASPART (NovoLOG) 100 UNIT/ML VIAL SQ SCH ×4 (06:27→23:36)
[2022-03-07] MEDS: MIDODRINE 5 MG TAB PO SCH ×2 (06:44→16:15)
[2022-03-07] MEDS: SODIUM CHLORIDE 0.9% 1,000 ML IV SCH ×3 (06:44→23:36)
[2022-03-07] MEDS: EZETIMIBE 10 MG TAB PO SCH (08:34)
[2022-03-07] MEDS: METOPROLOL SUCCINATE (ER) 100 MG TAB.ER.24H PO SCH ×2 (08:34→20:12)
[2022-03-07] MEDS: PANTOPRAZOLE 40 MG/10 ML VIAL IVP SCH ×2 (08:34→20:11)
[2022-03-07 09:51] LABS: Anisocytosis Slight; HCT 28.5 % (39.0-53.0); HGB 8.8 gm/dL (13.0-17.5); Hypochromasia Marked; MCHC 31.1 g/dL (31.0-37.0); MCV 90.2 fL (80.0-100.0); Mean Platelet Volume 9.6; Platelet Count 317 k/uL (150-450); Poikilocytosis Marked; RBC 3.16 m/uL (4.30-5.90); RDW 16.5 % (11.5-15.5); WBC 16.5 k/uL (3.8-10.6)
[2022-03-07 10:01] LABS: Calcium 7.7 mg/dL (8.4-10.2); Potassium 4.1 mmol/L (3.5-5.1)
[2022-03-07 11:38] LABS: Glucose,Whole Blood 168 mg/dL (75-99)
[2022-03-07] MEDS: metroNIDAZOLE-NS PMX 500 MG in SALINE 1 100ML.BAG IVPB SCH ×2 (11:38→16:14)
[2022-03-07] MEDS: SPIRONOLACTONE 25 MG TAB PO SCH (11:38)
[2022-03-07] MEDS: AMIODARONE 200 MG TAB PO SCH (11:39)
[2022-03-07 16:19] LABS: Glucose,Whole Blood 138 mg/dL (75-99)
--- NOTE | 2022-03-07 17:31 | P.PN ---
Subjective Progress Note Date: 03/07/22 Principal diagnosis: GI bleed Patient doing well today. No rectal bleeding. EGD yesterday showed duodenitis and gastritis. He had a CAT scan performed showing some inflammatory changes at the gallbladder. No active discomfort currently. Objective - Vital Signs Vital signs: Vital Signs Temp 98.2 F 03/07/22 16:00 Pulse 81 03/07/22 16:00 Resp 16 03/07/22 16:00 BP 90/53 03/07/22 16:00 Pulse Ox 95 03/07/22 16:00 Intake & Output 03/06/22 03/07/22 03/07/22 18:59 06:59 18:59 Intake Total 150 280 Output Total 550 Balance 150 -270 Weight 93.4 kg Intake: IV 150 Blood Product 0 280 Rc Pheresis 2 As3 Unit 0 280 [id number] Output: Urine 550 Other: Voiding Method Urinal Urinal # Bowel Movements 1 2 - Exam Abdomen: Soft, nondistended, mild right upper quadrant tenderness - Labs CBC & Chem 7: 03/07/22 09:15 03/07/22 09:15 Labs: Abnormal Lab Results - Last 24 Hours (Table) 03/06/22 03/06/22 03/07/22 Range/Units 00:25 20:41 02:10 WBC 15.1 H (3.8-10.6) k/uL RBC 3.02 L (4.30-5.90) m/uL Hgb 8.4 L (13.0-17.5) gm/dL Hct 27.1 L (39.0-53.0) % RDW 16.2 H (11.5-15.5) % Sodium (137-145) mmol/L Chloride (98-107) mmol/L BUN (9-20) mg/dL Creatinine (0.66-1.25) mg/dL Glucose (74-99) mg/dL POC Glucose (mg/dL) 185 H (75-99) mg/dL Calcium (8.4-10.2) mg/dL Crossmatch See Detail 03/07/22 03/07/22 03/07/22 Range/Units 02:10 06:17 09:15 WBC 16.5 H (3.8-10.6) k/uL RBC 3.16 L (4.30-5.90) m/uL Hgb 8.8 L (13.0-17.5) gm/dL Hct 28.5 L (39.0-53.0) % RDW 16.5 H (11.5-15.5) % Sodium 129 L (137-145) mmol/L Chloride 96 L (98-107) mmol/L BUN 50 H (9-20) mg/dL Creatinine 1.57 H (0.66-1.25) mg/dL Glucose 114 H (74-99) mg/dL POC Glucose (mg/dL) 119 H (75-99) mg/dL Calcium 7.8 L (8.4-10.2) mg/dL Crossmatch 03/07/22 03/07/22 03/07/22 Range/Units 09:15 11:36 16:17 WBC (3.8-10.6) k/uL RBC (4.30-5.90) m/uL Hgb (13.0-17.5) gm/dL Hct (39.0-53.0) % RDW (11.5-15.5) % Sodium 129 L (137-145) mmol/L Chloride 96 L (98-107) mmol/L BUN 47 H (9-20) mg/dL Creatinine 1.38 H (0.66-1.25) mg/dL Glucose (74-99) mg/dL POC Glucose (mg/dL) 168 H 138 H (75-99) mg/dL Calcium 7.7 L (8.4-10.2) mg/dL Crossmatch Assessment and Plan (1) GI bleed Narrative/Plan: Patient with anemia however hemoglobin improved today. EGD yesterday without obvious bleeding. Recent EGD and colonoscopy at [facility] a few weeks ago. Today had CAT scan showing some gallbladder inflammation. We'll check abdominal ultrasound. Continue antibiotics. Current Visit: Yes Status: Acute Code(s): K92.2 - GASTROINTESTINAL HE MORRHAGE, UNSPECIFIED SNOMED Code(s): 33433960
[2022-03-07] MEDS: ATORVASTATIN 40 MG TAB PO SCH (20:11)
[2022-03-07] MEDS: INSULIN DETEMIR (LEVEMIR) 100 UNIT/ML SYR SQ SCH (20:12)
[2022-03-07 20:25] LABS: Glucose,Whole Blood 126 mg/dL (75-99)
[2022-03-08] MEDS: metroNIDAZOLE-NS PMX 500 MG in SALINE 1 100ML.BAG IVPB SCH ×4 (01:04→23:23)
[2022-03-08 06:40] LABS: Glucose,Whole Blood 132 mg/dL (75-99)
[2022-03-08] MEDS: INSULIN ASPART (NovoLOG) 100 UNIT/ML VIAL SQ SCH ×4 (06:47→20:46)
[2022-03-08] MEDS: MIDODRINE 5 MG TAB PO SCH ×2 (06:49→16:48)
[2022-03-08 08:34] LABS: Anisocytosis Slight; Basophils % (A) 0 %; Eosinophils # (A) 0.1 k/uL (0-0.7); Eosinophils % (A) 0 %; HCT 30.4 % (39.0-53.0); HGB 9.3 gm/dL (13.0-17.5); Hypochromasia Marked; Lymphocytes # (A) 0.6 k/uL (1.0-4.8); Lymphocytes % (A) 4 %; MCH 28.1 pg (25.0-35.0); MCHC 30.8 g/dL (31.0-37.0); MCV 91.2 fL (80.0-100.0); Mean Platelet Volume 9.1; Monocytes # (A) 0.9 k/uL (0-1.0); Monocytes % (A) 6 %; Neutrophils # (A) 11.9 k/uL (1.3-7.7); Neutrophils % (A) 87 %; Platelet Count 354 k/uL (150-450); Poikilocytosis Marked; RBC 3.33 m/uL (4.30-5.90); RDW 16.4 % (11.5-15.5); WBC 13.7 k/uL (3.8-10.6)
[2022-03-08 08:54] LABS: Albumin 2.9 g/dL (3.5-5.0); Calcium 7.8 mg/dL (8.4-10.2); Potassium 4.5 mmol/L (3.5-5.1); Total Bilirubin 0.7 mg/dL (0.2-1.3); Total Protein 5.6 g/dL (6.3-8.2)
[2022-03-08] MEDS: AMIODARONE 200 MG TAB PO SCH (08:58)
[2022-03-08] MEDS: SPIRONOLACTONE 25 MG TAB PO SCH (08:58)
[2022-03-08] MEDS: EZETIMIBE 10 MG TAB PO SCH (08:58)
[2022-03-08] MEDS: PANTOPRAZOLE 40 MG/10 ML VIAL IVP SCH ×2 (08:58→20:45)
[2022-03-08] MEDS: METOPROLOL SUCCINATE (ER) 100 MG TAB.ER.24H PO SCH ×2 (08:58→20:45)
--- NOTE | 2022-03-08 09:26 | US ---
EXAMINATION TYPE: US gallbladder DATE OF EXAM: 03/08/2022 COMPARISON: NONE CLINICAL HISTORY: Evaluate for cholecystitis. Pain EXAM MEASUREMENTS: Liver Length: 19.7 cm Gallbladder Wall: .4 cm CBD: .3 cm Right Kidney: 9.7 x 4.0 x 3.7 cm Pancreas: Tail obscured by overlying bowel gas Liver: Increased attenuation Gallbladder: Polyp visualized wall upper limits. Evidence for sonographic Box's sign: No CBD: wnl Right Kidney: wnl IMPRESSION: Suspect gallbladder polyp
--- NOTE | 2022-03-08 10:41 | P.PN ---
Subjective Progress Note Date: 03/08/22 Principal diagnosis: GI bleed Patient complaining of shortness of breath today. Says this is new for him. Denies pain. No nausea or vomiting. No bleeding. White blood cell count improved however ALT and AST significantly increased from yesterday. Abdominal ultrasound relatively unimpressive. Objective - Vital Signs Vital signs: Vital Signs Temp 97 F L 03/08/22 07:55 Pulse 83 03/08/22 07:55 Resp 18 03/08/22 07:55 BP 90/49 03/08/22 07:55 Pulse Ox 92 L 03/08/22 07:55 Intake & Output 03/07/22 03/08/22 03/08/22 18:59 06:59 18:59 Intake Total 870 0 Output Total 550 300 Balance -550 570 0 Intake: Intake, IV Titration 750 Amount Sodium Chloride 0.9% 1, 650 000 ml @ 75 mls/hr IV . [id number] MOHAN Rx#:[id number]-NS PMX 500 100 mg In Saline 1 100ml.bag @ 100 mls/hr IVPB Q8HR MOHAN Rx#:[id number] Oral 120 0 Output: Urine 550 300 Other: Voiding Method Indwelling Catheter Indwelling Catheter # Bowel Movements 2 - Exam Abdomen: Soft, nontender, nondistended - Labs CBC & Chem 7: 03/08/22 08:06 03/08/22 08:06 Labs: Abnormal Lab Results - Last 24 Hours (Table) 03/07/22 03/07/22 03/07/22 Range/Units 11:36 16:17 20:14 WBC (3.8-10.6) k/uL RBC (4.30-5.90) m/uL Hgb (13.0-17.5) gm/dL Hct (39.0-53.0) % MCHC (31.0-37.0) g/dL RDW (11.5-15.5) % Neutrophils # (1.3-7.7) k/uL Lymphocytes # (1.0-4.8) k/uL Sodium (137-145) mmol/L Carbon Dioxide (22-30) mmol/L BUN (9-20) mg/dL Creatinine (0.66-1.25) mg/dL Glucose (74-99) mg/dL POC Glucose (mg/dL) 168 H 138 H 126 H (75-99) mg/dL Calcium (8.4-10.2) mg/dL AST (17-59) U/L ALT (4-49) U/L Total Protein (6.3-8.2) g/dL Albumin (3.5-5.0) g/dL 03/08/22 03/08/22 03/08/22 Range/Units 06:28 08:06 08:06 WBC 13.7 H (3.8-10.6) k/uL RBC 3.33 L (4.30-5.90) m/uL Hgb 9.3 L (13.0-17.5) gm/dL Hct 30.4 L (39.0-53.0) % MCHC 30.8 L (31.0-37.0) g/dL RDW 16.4 H (11.5-15.5) % Neutrophils # 11.9 H (1.3-7.7) k/uL Lymphocytes # 0.6 L (1.0-4.8) k/uL Sodium 131 L (137-145) mmol/L Carbon Dioxide 20 L (22-30) mmol/L BUN 45 H (9-20) mg/dL Creatinine 1.36 H (0.66-1.25) mg/dL Glucose 122 H (74-99) mg/dL POC Glucose (mg/dL) 132 H (75-99) mg/dL Calcium 7.8 L (8.4-10.2) mg/dL AST 368 H (17-59) U/L ALT 369 H (4-49) U/L Total Protein 5.6 L (6.3-8.2) g/dL Albumin 2.9 L (3.5-5.0) g/dL Assessment and Plan (1) GI bleed Narrative/Plan: Patient with anemia that has been fairly thoroughly worked up. No signs of bleeding at this time. CAT scan shows possible acalculous cholecystitis. Liver enzymes elevated. He is now short of breath. We'll repeat labs tomorrow. Will follow. Current Visit: Yes Status: Acute Code(s): K92.2 - GASTROINTESTINAL HEMORRHAGE, UNSPECIFIED SNOMED Code(s): 06986081
[2022-03-08 11:49] LABS: Glucose,Whole Blood 170 mg/dL (75-99)
[2022-03-08] MEDS: SODIUM CHLORIDE 0.9% 1,000 ML IV SCH (12:24)
[2022-03-08] MEDS ORDERED: FUROSEMIDE 20 MG TAB PO STA (15:06)
[2022-03-08] MEDS: ACETAMINOPHEN TAB 325 MG TAB PO PRN ×2 (15:52→22:20)
[2022-03-08 16:37] LABS: Glucose,Whole Blood 163 mg/dL (75-99)
[2022-03-08 20:40] LABS: Glucose,Whole Blood 182 mg/dL (75-99)
[2022-03-08] MEDS: ATORVASTATIN 40 MG TAB PO SCH (20:46)
[2022-03-08] MEDS: INSULIN DETEMIR (LEVEMIR) 100 UNIT/ML SYR SQ SCH (20:46)
[2022-03-08] MEDS ORDERED: FUROSEMIDE 10 MG/ML 2 ML VIAL IV ONE (20:57)
[2022-03-09] MEDS: ACETAMINOPHEN TAB 325 MG TAB PO PRN ×2 (04:26→22:35)
[2022-03-09 06:34] LABS: Glucose,Whole Blood 99 mg/dL (75-99)
[2022-03-09] MEDS: INSULIN ASPART (NovoLOG) 100 UNIT/ML VIAL SQ SCH ×4 (06:43→20:14)
[2022-03-09] MEDS: FUROSEMIDE 20 MG TAB PO SCH (06:46)
[2022-03-09] MEDS: MIDODRINE 5 MG TAB PO SCH ×2 (06:46→17:19)
[2022-03-09 08:07] LABS: Anisocytosis Slight; Basophils % (A) 0 %; Eosinophils # (A) 0.1 k/uL (0-0.7); Eosinophils % (A) 1 %; HCT 27.7 % (39.0-53.0); HGB 8.6 gm/dL (13.0-17.5); Hypochromasia Marked; Lymphocytes # (A) 0.3 k/uL (1.0-4.8); Lymphocytes % (A) 3 %; MCH 27.8 pg (25.0-35.0); MCHC 30.9 g/dL (31.0-37.0); MCV 89.9 fL (80.0-100.0); Mean Platelet Volume 9.2; Monocytes # (A) 0.7 k/uL (0-1.0); Monocytes % (A) 7 %; Neutrophils # (A) 8.7 k/uL (1.3-7.7); Neutrophils % (A) 88 %; Platelet Count 291 k/uL (150-450); Poikilocytosis Marked; RBC 3.08 m/uL (4.30-5.90); RDW 16.1 % (11.5-15.5); WBC 9.9 k/uL (3.8-10.6)
[2022-03-09] MEDS: PANTOPRAZOLE 40 MG/10 ML VIAL IVP SCH ×2 (08:13→20:35)
[2022-03-09] MEDS: EZETIMIBE 10 MG TAB PO SCH (08:14)
[2022-03-09] MEDS: SPIRONOLACTONE 25 MG TAB PO SCH (08:14)
[2022-03-09] MEDS: AMIODARONE 200 MG TAB PO SCH (08:14)
[2022-03-09] MEDS: METOPROLOL SUCCINATE (ER) 100 MG TAB.ER.24H PO SCH ×2 (08:14→20:35)
[2022-03-09] MEDS: metroNIDAZOLE-NS PMX 500 MG in SALINE 1 100ML.BAG IVPB SCH ×3 (08:15→23:31)
[2022-03-09 08:27] LABS: Albumin 2.6 g/dL (3.5-5.0); Calcium 7.7 mg/dL (8.4-10.2); Potassium 4.1 mmol/L (3.5-5.1); Total Bilirubin 0.6 mg/dL (0.2-1.3); Total Protein 5.3 g/dL (6.3-8.2)
--- NOTE | 2022-03-09 08:48 | P.PN ---
Subjective Progress Note Date: 03/09/22 Principal diagnosis: GI bleed Patient is complaining of right leg numbness and paresis. Says his right arm also feels somewhat unusual. He has had a history of stroke in the past. Patient was apparently concerned about having stents placed in the leg in the past. Denies abdominal pain. No rectal bleeding. Objective - Vital Signs Vital signs: Vital Signs Temp 97.7 F 03/09/22 04:10 Pulse 82 03/09/22 04:10 Resp 24 03/09/22 04:10 BP 93/54 03/09/22 04:10 Pulse Ox 99 03/09/22 04:10 Intake & Output 03/08/22 03/09/22 03/09/22 18:59 06:59 18:59 Intake Total 420 Output Total 750 750 Balance -330 -750 Intake: Oral 420 Output: Urine 750 750 Other: Voiding Method Indwelling Catheter Indwelling Catheter - Exam Abdomen: Soft, nontender, nondistended Right lower extremity with paresis and numbness - Labs CBC & Chem 7: 03/09/22 07:27 03/09/22 07:27 Labs: Abnormal Lab Results - Last 24 Hours (Table) 03/08/22 03/08/22 03/08/22 Range/Units 08:06 11:48 16:33 RBC (4.30-5.90) m/uL Hgb (13.0-17.5) gm/dL Hct (39.0-53.0) % MCHC (31.0-37.0) g/dL RDW (11.5-15.5) % Neutrophils # (1.3-7.7) k/uL Lymphocytes # (1.0-4.8) k/uL Sodium 131 L (137-145) mmol/L Carbon Dioxide 20 L (22-30) mmol/L BUN 45 H (9-20) mg/dL Creatinine 1.36 H (0.66-1.25) mg/dL Glucose 122 H (74-99) mg/dL POC Glucose (mg/dL) 170 H 163 H (75-99) mg/dL Calcium 7.8 L (8.4-10.2) mg/dL AST 368 H (17-59) U/L ALT 369 H (4-49) U/L Total Protein 5.6 L (6.3-8.2) g/dL Albumin 2.9 L (3.5-5.0) g/dL 03/08/22 03/09/22 03/09/22 Range/Units 20:21 07:27 07:27 RBC 3.08 L (4.30-5.90) m/uL Hgb 8.6 L (13.0-17.5) gm/dL Hct 27.7 L (39.0-53.0) % MCHC 30.9 L (31.0-37.0) g/dL RDW 16.1 H (11.5-15.5) % Neutrophils # 8.7 H (1.3-7.7) k/uL Lymphocytes # 0.3 L (1.0-4.8) k/uL Sodium 129 L (137-145) mmol/L Carbon Dioxide 21 L (22-30) mmol/L BUN 45 H (9-20) mg/dL Creatinine 1.40 H (0.66-1.25) mg/dL Glucose (74-99) mg/dL POC Glucose (mg/dL) 182 H (75-99) mg/dL Calcium 7.7 L (8.4-10.2) mg/dL AST 618 H (17-59) U/L ALT 528 H (4-49) U/L Total Protein 5.3 L (6.3-8.2) g/dL Albumin 2.6 L (3.5-5.0) g/dL Assessment and Plan (1) GI bleed Narrative/Plan: Patient's hemoglobin today 0.6 from 9.3. Denies abdominal pain. Patient has new complaints of right lower extremity weakness and numbness. Nursing staff is contacting the hospitalists at this time regarding these symptoms. Continue to follow hemoglobin. Continue antibiotics for possible cholecystitis. Current Visit: Yes Status: Acute Code(s): K92.2 - GASTROINTESTINAL HEMORRHAGE, UNSPECIFIED SNOMED Code(s): 26952495
--- NOTE | 2022-03-09 09:47 | CT ---
EXAMINATION TYPE: CT brain wo con DATE OF EXAM: 03/09/2022 COMPARISON: 02/01/2022 HISTORY: Right sided weakness CT DLP: 1202.[address] of the brain was performed. The ventricles, basal cisterns and sulci overlying the cerebral convexities demonstrate mild enlargem ent. There is no evidence for intracranial hemorrhage or sulcal effacement. There is decreased attenuation about the periventricular white matter and deep white matter of both c erebral hemispheres, compatible with chronic small vessel ischemia. Differential diagnosis does inclu de demyelination. No mass effects are seen.No midline shift. Osseous calvarium is intact. If symptoms persist consider MRI. IMPRESSION: 1. Age related atrophic and chronic small vessel ischemic change without acute intracranial process s een at this time.
[2022-03-09 11:48] LABS: Glucose,Whole Blood 97 mg/dL (75-99)
--- NOTE | 2022-03-09 12:31 | CT ---
EXAMINATION TYPE: CODE STROKE: CTA head neck DATE OF EXAM: 03/09/2022 COMPARISON: 01/30/2022 HISTORY: Right leg weakness CT DLP: 673.9 mGycm CONTRAST: Performed without and with IV Contrast, patient injected with 65 ml mL of Isovue 370. Combination Contrast CTA cervical carotids and [place] CTA cervical carotids with 3-D recons truction Contrast CTA of the cervical carotids was performed 3-D reconstruction imaging obtained at a separate workstation. Right carotid system: Mild plaque is seen of the right common carotid artery. There is moderate plaq ue also noted at the carotid bulb and proximal ICA. Patient motion limits examination. Estimated hernan meter reduction of approximately 60%. ECA is patent. Right vertebral artery appears unremarkable. Left carotid system: Mild plaque is seen of the left common carotid artery. Interval stent placement left ICA since the most recent prior study. No evidence for stenosis. No significant diameter reducti on. ECA is patent. Left vertebral artery appears unremarkable. IMPRESSION: 1. . Interval stent placement left ICA since the most recent prior study. No evidence for stenosis. 2. Evaluation of the right ICA is limited by patient motion. Plaque resulting in an estimated 60% hernan meter reduction. CTA [place] with 3-D reconstruction Contrast CTA of the [place] was performed 3-D reconstruction imaging obtained at a separate workstation. Vertebrobasilar system as well as intracranial portions of the internal carotid arteries and their ma kvng tributaries are patent. I do not see evidence for sizable aneurysm or vascular malformation. Pl ease note MRI provides greater sensitivity and specificity. Visualized brain appears grossly unremar kable. IMPRESSION: 1. No significant abnormality. NASCET criteria was used in interpretation of this exam?
--- NOTE | 2022-03-09 12:53 | CT ---
EXAMINATION TYPE: CT lumbar spine wo con DATE OF EXAM: 03/09/2022 10:50 AM COMPARISON: None HISTORY: Right leg weakness CT DLP: 1918.6 mGycm Automated exposure control for dose reduction was used. Unenhanced CT of the lumbar spine was performed. Bone and soft tissue window settings are submitted as well as coronal and sagittal reconstructions. L1-L2: Severe degenerative disc space narrowing and vacuum disc and endplate sclerosis. Posterior dis c bulge with hypertrophy of the ligamentum flavum and facet joint arthropathy resulting in moderate c entral stenosis. L2-L3: Severe degenerative disc space narrowing and vacuum disc and endplate sclerosis. Posterior dis c bulge with hypertrophy of the ligamentum flavum and facet joint arthropathy resulting in moderate c entral stenosis. L3-L4: Moderate to severe degenerative disc disease. Circumferential disc bulge with effacement of th e ventral thecal sac. Hypertrophy ligamentum flavum and facet joint arthropathy result in moderate ce ntral stenosis. Bilateral foraminal encroachment noted. L4-L5: Severe degenerative disc space narrowing and vacuum disc and endplate sclerosis. Posterior dis c bulge with hypertrophy of the ligamentum flavum and facet joint arthropathy resulting in severe nancy tral stenosis. Bilateral foraminal encroachment. L5-S1: Grade 1 anterolisthesis L5 and S1 measuring 3 mm. Mild degenerative disc disease. Posterior di sc bulge. No central stenosis. Bilateral spondylolysis. No paraspinal masses are identified. Lumbar segments are intact. Bilateral pleural effusions with co mpressive atelectasis. IMPRESSION: 1. Severe multilevel degenerative disc disease with multilevel central stenosis as outlined above.
--- NOTE | 2022-03-09 12:57 | P.CNNES ---
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 Neurology is consulted for right sided weakness. Some of the history is obtained from nurse. Patient stated he noticed his right lower extremity yesterday in the afternoon but could not tell me what time. He continues to have weakness. He has complain of entire posterior low back pain that radiates down the entire right leg. He stated his right upper extremity weakness is old and denies any worsening of upper. Denies other neurological problems. Patient was on Eliquis 5mg bid, Plavix 75mg daily which are being held because of bleeding. He is on Lipitor 40mg daily. Later, I spoke with the patient's and his daughter who were at bedside and they stated that patient has been having right lower extremity weakness for the past 2-3 days and worsened yesterday. He has history of right upper extremity weakness for the past 6 month and noticed it after shoulder injection by his PCP but unsure of cause. He was told he had stroke that affected the right side. He has peripheral arterial disease and was told could not perform surgery for PAD by Dr. Coto over the right lower extremity because too occluded a couple years ago per family but were not sure. He has history of prostate cancer s/p radiation in the past but unsure of duration. Of noted patietn had left ICA stenosis s/p stenting on 02/03/[address] Coto. Patient stated he was told he has old stroke and that is why he is weak on right upper. During this hospital visit his blood pressure was low 68/42 on 03/06/2022. Today his blood pressure is 93/54. His hemoglobin was 6.1 and currently is 8.6. Creatnine 1.20-->1.40. Sodium 126-->129. AST 25-->618 ALT 13-->528 Glucose 263-->97 Stool occult blood: Positive. Review of Systems Review of system: The 12 point system was reviewed and apparent positive and negative per HPI. Past Medical History Past Medical History: Cancer, Diabetes Mellitus, GERD/Reflux, GI Bleed, Hyperlipidemia, Hypertension, Myocardial Infarction ([place]), Prostate Disorder, Skin Disorder, Vascular Disorder Additional Past Medical History / Comment(s): HX PROSTATE CA with radiation and laser sx, & Basal Cell and Melanoma microcytic iron deficiency anemia, duodenitis Last Myocardial Infarction Date:: 1999 History of Any Multi-Drug Resistant Organisms: None Reported Past Surgical History: Adenoidectomy, AICD, Cardiac Valve Replacement, Heart Catheterization, Heart Catheterization With Stent, Tonsillectomy Additional Past Surgical History / Comment(s): 12/12/15 R fempop PTCA with stent X2.Other surgical hx 09/2015 [place] [facility] [place] [facility] [place] HEART STENTS X3. Laser/Radiation Tx for Prosate CA. EXC Rt Upper Arm Melanoma, Basal Cell EXC FROM SCALP. PTCA 06/15/15, INDIRA 08/22/15. ABD AORTOGRAM W/ RUNOFF 12/10/15, EGD, colonoscopy with arteriovenous malformation. LEFT NECK BASAL CELL CA REMOVED Past Anesthesia/Blood Transfusion Reactions: No Reported Reaction Date of Last Stent Placement:: 1999 Type of Cardiac Device: AICD Device Placement Date:: 04/01/2016-[facility] [place]-(model [id number] pt) Past Psychological History: No Psychological Hx Reported Smoking Status: Former smoker Past Alcohol Use History: Rare Past Drug Use History: None Reported - Past Family History Father Family Medical History: Diabetes Mellitus, Myocardial Infarction ([place]) Additional Family Medical History / Comment(s): Father of a [place] at age 64yrs. Mother History Unknown: Yes Family Medical History: No Reported History Additional Family Medical History / Comment(s): Mother at age 68 yrs. Medications and Allergies Home Medications Medication Instructions Recorded Confirmed Type gemfibroziL [Lopid] 600 mg PO BID@0900,2100 02/27/17 03/06/22 History Ezetimibe 10 mg PO HS@2100 11/04/19 03/06/22 History Pantoprazole Sodium [Protonix] 40 mg PO LAVONNE-SIMRANSWATHI #30 tablet. 11/10/19 03/06/22 Rx Ferrous Sulfate [Iron (65 MG 325 mg PO BID@0900,209904/07/21 03/06/22 History Elemental)] Atorvastatin [Lipitor] 40 mg PO HS #30 tab 02/05/22 03/06/22 Rx Apixaban [Eliquis] 5 mg PO BID@0900,209902/14/22 03/06/22 History Clopidogrel [Plavix] 75 mg PO DAILY@0900 03/06/22 03/06/22 History Docusate [Colace] 100 mg PO BID@0900,209903/06/22 03/06/22 History Furosemide [Lasix] 20 mg PO DAILY@0600 03/06/22 03/06/22 History INSULIN LISPRO (humaLOG) [humaLOG] See Protocol SQ ACHS 03/06/22 03/06/22 History Insulin Glargine,Hum.rec.anlog 12 unit SQ HS@209903/06/22 03/06/22 History [Lantus Solostar Pen] Melatonin 3 mg PO HS@209903/06/22 03/06/22 History Metoprolol Tartrate [Lopressor] 50 mg PO DAILY@0900 03/06/22 03/06/22 History Polyethylene Glycol 3350 [Miralax] 17 gm PO BID@0900,209903/06/22 03/06/22 History Allergies Allergy/AdvReac Type Severity Reaction Status Date / Time bismuth subsalicylate AdvReac Severe ABD PAIN, Verified 03/06/22 07:20 [From Pepto-Bismol] N/V molasses AdvReac Severe Nausea & Uncoded 03/06/22 00:23 Vomiting Physical Examination - Vital Signs Vital Signs: Vital Signs Temp Pulse Resp BP Pulse Ox 03/09/22 08:13 97.5 F L 59 L 22 114/72 98 03/09/22 04:10 97.7 F 82 24 93/54 99 03/08/22 23:00 97.5 F L 63 22 99/51 99 03/08/22 19:45 98 F 68 24 100/56 96 03/08/22 16:00 98 F 75 18 97/57 97 03/08/22 12:00 97 F L 79 18 86/43 97 Intake and Output 03/08/22 03/09/22 03/09/22 22:59 06:59 14:59 Intake Total 0 Output Total 100 750 Balance -100 -750 Intake: Oral 0 Output: Urine 100 750 Other: Voiding Method Indwelling Catheter Indwelling Catheter Indwelling Catheter GENERAL: The patient is lying in bed and is not in acute distress. CHEST: The heart rate is regular rate rhythm. No murmurs to auscultation. LUNG: Clear to auscultation bilaterally no wheezing noted throughout. Not labored breathing. ABDOMEN/GI: Bowel sounds present in all 4 quadrants. No tenderness to palpation throughout. NEUROLOGICAL: Higher mental function: The patient is awake, alert, oriented to self, place and time. Patient is following commands. No aphasia and no neglect. Cranial nerves: The pupils are round, equal and reactive to light. Visual roman are full to confrontation throughout. Extraocular movement is intact no nystagmus is noted. Facial sensation is normal to touch throughout. The facial strength is normal throughout. Hearing is mildly to moderately decreased bilaterally to hand rub. Tongue is midline and moved [id number] without any difficulty. Mild dysarthria is noted. Shoulder shrug is normal bilaterally. Motor: Gait is deferred because of his weakness. The strength is right forearm is 4+, right hand produce clerk is 5/5, is able to raise the right upper extremity above gravity but has drift (patient stated his right upper extremity weakness is old). Right lower extremity: Flicker proximally otherwise 0/5. Left upper extremity is 5/5 and is raising the left lower extremity above gravity. Normal bulk. Has slight decrease tone throughout. Cerebellum: Normal finger to nose bilaterally. Sensation: Sensation is decreased to touch in right lower. Reflexes (right/left): 1+ throughout. Plantars are mute bilaterally. NIH stroke scale: 1 right upper extremity (old), 4 (right lower extremity), 1 sensation (right): Total 6 (but 5 is new). Results - Laboratory Findings CBC and BMP: 03/09/22 07:27 03/09/22 07:27 Abnormal Lab Findings: Abnormal Labs 03/06/22 03/06/22 03/06/22 00:25 00:31 00:31 WBC 15.7 H RBC 2.32 L Hgb 6.1 L* Hct 20.0 L MCHC 30.8 L RDW 17.7 H Neutrophils # 13.4 H Lymphocytes # Sodium 126 L Chloride 93 L Carbon Dioxide 21 L BUN 41 H Creatinine Glucose 238 H POC Glucose (mg/dL) Plasma Lactic Acid Nikolay Calcium 8.2 L AST ALT Troponin I Total Protein 5.5 L Albumin 3.0 L Crossmatch See Detail 03/06/22 03/06/22 03/06/22 00:31 00:31 04:18 WBC RBC Hgb Hct MCHC RDW Neutrophils # Lymphocytes # Sodium Chloride Carbon Dioxide BUN Creatinine Glucose POC Glucose (mg/dL) Plasma Lactic Acid Nikolay 2.8 H* 2.2 H* Calcium AST ALT Troponin I 0.075 H* Total Protein Albumin Crossmatch 03/06/22 03/06/22 03/06/22 07:44 11:45 14:25 WBC 13.3 H RBC 2.62 L Hgb 7.2 L Hct 23.4 L MCHC 30.7 L RDW 16.9 H Neutrophils # 11.5 H Lymphocytes # 0.8 L Sodium Chloride Carbon Dioxide BUN Creatinine Glucose POC Glucose (mg/dL) 263 H Plasma Lactic Acid Nikolay 2.8 H* Calcium AST ALT Troponin I Total Protein Albumin Crossmatch 03/06/22 03/06/22 03/06/22 14:25 16:40 16:43 WBC 14.6 H RBC 2.63 L Hgb 7.1 L Hct 23.6 L MCHC 30.3 L RDW 16.5 H Neutrophils # Lymphocytes # Sodium 129 L Chloride 96 L Carbon Dioxide BUN 44 H Creatinine 1.43 H Glucose 200 H POC Glucose (mg/dL) 192 H Plasma Lactic Acid Nikolay Calcium 7.7 L AST ALT Troponin I Total Protein Albumin Crossmatch 03/06/22 03/07/22 03/07/22 20:41 02:10 02:10 WBC 15.1 H RBC 3.02 L Hgb 8.4 L Hct 27.1 L MCHC RDW 16.2 H Neutrophils # Lymphocytes # Sodium 129 L Chloride 96 L Carbon Dioxide BUN 50 H Creatinine 1.57 H Glucose 114 H POC Glucose (mg/dL) 185 H Plasma Lactic Acid Nikolay Calcium 7.8 L AST ALT Troponin I Total Protein Albumin Crossmatch 03/07/22 03/07/22 03/07/22 06:17 09:15 09:15 WBC 16.5 H RBC 3.16 L Hgb 8.8 L Hct 28.5 L MCHC RDW 16.5 H Neutrophils # Lymphocytes # Sodium 129 L Chloride 96 L Carbon Dioxide BUN 47 H Creatinine 1.38 H Glucose POC Glucose (mg/dL) 119 H Plasma Lactic Acid Nikolay Calcium 7.7 L AST ALT Troponin I Total Protein Albumin Crossmatch 03/07/22 03/07/22 03/07/22 11:36 16:17 20:14 WBC RBC Hgb Hct MCHC RDW Neutrophils # Lymphocytes # Sodium Chloride Carbon Dioxide BUN Creatinine Glucose POC Glucose (mg/dL) 168 H 138 H 126 H Plasma Lactic Acid Nikolay Calcium AST ALT Troponin I Total Protein Albumin Crossmatch 03/08/22 03/08/22 03/08/22 06:28 08:06 08:06 WBC 13.7 H RBC 3.33 L Hgb 9.3 L Hct 30.4 L MCHC 30.8 L RDW 16.4 H Neutrophils # 11.9 H Lymphocytes # 0.6 L Sodium 131 L Chloride Carbon Dioxide 20 L BUN 45 H Creatinine 1.36 H Glucose 122 H POC Glucose (mg/dL) 132 H Plasma Lactic Acid Nikolay Calcium 7.8 L AST 368 H ALT 369 H Troponin I Total Protein 5.6 L Albumin 2.9 L Crossmatch 03/08/22 03/08/22 03/08/22 11:48 16:33 20:21 WBC RBC Hgb Hct MCHC RDW Neutrophils # Lymphocytes # Sodium Chloride Carbon Dioxide BUN Creatinine Glucose POC Glucose (mg/dL) 170 H 163 H 182 H Plasma Lactic Acid Nikolay Calcium AST ALT Troponin I Total Protein Albumin Crossmatch 03/09/22 03/09/22 07:27 07:27 WBC RBC 3.08 L Hgb 8.6 L Hct 27.7 L MCHC 30.9 L RDW 16.1 H Neutrophils # 8.7 H Lymphocytes # 0.3 L Sodium 129 L Chloride Carbon Dioxide 21 L BUN 45 H Creatinine 1.40 H Glucose POC Glucose (mg/dL) Plasma Lactic Acid Nikolay Calcium 7.7 L AST 618 H ALT 528 H Troponin I Total Protein 5.3 L Albumin 2.6 L Crossmatch Assessment and Plan Assessment: Acute significant right leg paresis: Rule out acute ischemic stroke (no IV tpa since outside window and risk outweigh benefits). Last normal is 2-3 days ago. Seems atypical for lumbar radiculopathy to give profound weakness. Rule out signfiicant peripheral arterial disease as cause. No IV tpa since outside window, severe anemia and risk outweigh benefit. 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 Left ICA stenosis s/p stenting on 02/03/2022 (by Dr. Coto0 History of GI bleed History of basal cell carcinoma and melanoma that was removed History of cardiology status post stent s/p AICD Diabetes mellitus type 2 Hypertension and during this hospital visit has hypotensive episode History of prostate cancer status post the radiation and laser History of aortic valve replacement History of peripheral vascular disease with femoral popliteal PTCA with stent placement History of abdominal aortogram thrown off Prior history of smoking Plan: CT head is ordered today and is reported as Age related atrophic and chronic small vessel ischemic change without acute intracrial process seen at this time. I ordered CTA of head and neck and CT lumbar STAT. If CTA head and neck shows thrombosis then will contact intervention neurology team. Will pursue with MRI Brain and Lumbar for tomorrow as STAT (since no tech available today). Antiplatelets and anticoagulation (was on Plavix 75mg and eliquis 5mg bid -- home meds) on hold because of his anemia suspected GI bleed. On lipitor 40mg daily If patient has a stroke then will get rest of stroke work-up (repeat limited 2D echo, lipid panel). Dr. Lundberg is consulted for lower back. Ordered ammonia level and if elevated will defer management to the primary team. PT and OT are consulted. Ordered TSH, vitamin B12, folate. Q4 hour neuro checks Placed on cardiac monitoring. General surgery team is on board for GI bleed Avoid hypotensive episodes and will defer management to primary team. Will defer the rest of medical management to the primary team. For DVT prophylaxis: Recommend SCD because of his anemia. The plan is discussed with the patient, his family members in detailed ( and daughter) and his nurse. Thank you for the consult. Dr. Franz will start neurology service tomorrow AM. Boris Galarza M.D. Neuro-Hospitalist Time with Patient: Greater than 30
--- NOTE | 2022-03-09 16:02 | US ---
EXAMINATION TYPE: US carotid duplex BILAT DATE OF EXAM: 03/09/2022 COMPARISON: NONE CLINICAL HISTORY: right ica stenosis. Left stenosis stent put in visualized in bulb and ICA. EXAM MEASUREMENTS: RIGHT: Peak Systolic Velocity (PSV) cm/sec ----- Right CCA: 76.9 ----- Right ICA: 141.7 ----- Right ECA: 155.4 ICA/CCA ratio: 1.8 RIGHT: End Diastole cm/sec ----- Right CCA: 17.3 ----- Right ICA: 25.4 ----- Right ECA: 27.4 LEFT: Peak Systolic Velocity (PSV) cm/sec ----- Left CCA: 114.0 ----- Left ICA: 200.1 ----- Left ECA: 206.6 ICA/CCA ratio: 1.8 LEFT: End Diastole cm/sec ----- Left CCA: 19.5 ----- Left ICA: 25.5 ----- Left ECA: 0 VERTEBRALS (direction of flow): Right Vertebral: Antegrade Left Vertebral: Antegrade Rhythm: Normal No significant stenosis seen stent in place Left Bulb and ICA flow visualized. IMPRESSION: There is arterial flow through the left internal carotid artery stent. There is bilateral elevated internal carotid artery velocity suggestive of 50-70% stenosis. There is antegrade flow in the vertebral arteries. Criteria for Assigning % of Stenosis / Diameter reduction (Estimation based on the indirect measurements of the internal carotid artery velocities (ICA PSV). 1. Normal (no stenosis)=ICA PSV < 125 cm/s: ratio < 2.0: ICA EDV<40 cm/s. 2. Less than 50% stenosis=ICA PSV < 125 cm/s: ratio < 2.0: ICA EDV<40 cm/s. 3. 50 to 69% stenosis=ICA PSV of 125 to 230 cm/s: ration 2.0 ? 4.0: ICA EDV 40-100 cm/s. 4. Greater than 70% stenosis to near occlusion= ICA PSV > 230 cm/s: ratio > 4.0: ICA EDV > 100 cm/s. 5. Near occlusion= ICA PSV velocities may be low or undetectable: variable ratio and ICA EDV. 6. Total occlusion=unable to detect flow.
[2022-03-09 16:23] LABS: Glucose,Whole Blood 102 mg/dL (75-99)
[2022-03-09 16:53] LABS: Vitamin B12 >2000.0 pg/mL (200.0-944.0)
[2022-03-09 20:02] LABS: Glucose,Whole Blood 108 mg/dL (75-99)
[2022-03-09] MEDS: SODIUM CHLORIDE 0.9% 1,000 ML IV SCH (20:33)
[2022-03-09] MEDS: ATORVASTATIN 40 MG TAB PO SCH (20:35)
[2022-03-09] MEDS: INSULIN DETEMIR (LEVEMIR) 100 UNIT/ML SYR SQ SCH (20:35)
--- NOTE | 2022-03-09 23:25 | P.PN ---
Subjective Progress Note Date: 03/07/22 Patient is a 81-year-old male with a known history of hypertension, hyperlipidemia, history of GI bleed, diabetes type 2, history of basal cell and melanoma, microcytic iron deficiency anemia and currently on iron supplementation at home, history of ID, coronary with history of stent placement, AICD placement, chronic CHF ejection fraction 30 to 35% and femoropopliteal PTCA with stent placement x2 and previous history of smoking presents to ER from [facility] due to low hemoglobin level. Patient's hemoglobin on admission was 6.1. Patient was seen in the ER on 02/14/2022 with a hemoglobin of 6.6 and was transferred to [facility] since there was no GI coverage at that time. Patient had normal hemoglobin level 11.2 on 02/04/2022. Patient had colonoscopy at [facility] and was discharged back to [facility]. Patient has been having dark stools and is also taking iron supplementation at home. No complaints of abdominal pain. No hematemesis. No nausea vomiting. Denies any complaints of shortness of breath. No fever no chills. No chest pain. No leg swelling. No cough or sputum production. Patient is not any blood thinners. On admission hemoglobin 6.1 WBC 15.7 and platelets 381 Sodium 126 potassium 4.3 chloride 93 bicarbonate 21 BUN 41 creatinine 1.20 and lactic acid 2.8 blood sugar is 238 and troponin 0.075 FOBT positive 03/07/2022 patient is status post EGD showed mild gastritis and duodenitis. Patient has been complaining of right upper quadrant abdominal pain yesterday. CT of abdomen pelvis was done which showed inflammatory changes around the gallbladder with cholelithiasis concerning for acute cholecystitis. Small bilateral pleural effusions. Patient was started on antibiotics empirically. Patient otherwise complains of generalized weakness. Currently on IV hydration. Laboratory data showed WBC 16.1 hemoglobin 8.8 and platelets 317 Sodium 129 potassium 4.1 chloride 96 BUN 47 creatinine 1.38 and calcium 7.7. General surgery is on board. Patient is being current PPI. Current medications reviewed. Objective - Vital Signs Vital signs: Vital Signs Temp 98.2 F 03/07/22 16:00 Pulse 81 03/07/22 16:00 Resp 16 03/07/22 16:00 BP 90/53 03/07/22 16:00 Pulse Ox 95 03/07/22 16:00 Intake & Output 03/07/22 03/07/22 03/08/22 06:59 18:59 06:59 Intake Total 280 Output Total 550 550 Balance -270 -550 Intake: Blood Product 280 Rc Pheresis 2 As3 Unit 280 [id number] Output: Urine 550 550 Other: Voiding Method Urinal # Bowel Movements 1 2 - Exam PHYSICAL EXAMINATION: Patient is lying in the bed comfortably, no acute distress, awake alert and o riented.. HEENT: Normocephalic. Neck is supple. Pupils reactive. Nostrils clear. Oral cavity is moist. Neck reveals no JVD, carotid bruits, or thyromegaly. CHEST EXAMINATION: Trachea is central. Symmetrical expansion. Scattered crackles. No wheezing. Nonlabored breathing.. CARDIAC: Normal S1, S2 with no gallops. No murmurs ABDOMEN: Soft. Bowel sounds normal. No organomegaly. No abdominal bruits. Extremities: reveal no edema. No clubbing or cyanosis Neurologically awake, alert, oriented x3 with well-coordinated movements. No focal deficits noted Skin: No rash or skin lesions. Psychiatric: Coperative. Nonsuicidal Musculoskeletal: No joint swelling or deformity. Normal range of motion. - Labs CBC & Chem 7: 03/09/22 07:27 03/09/22 07:27 Labs: Abnormal Lab Results - Last 24 Hours (Table) 03/07/22 03/07/22 03/07/22 Range/Units 02:10 02:10 06:17 WBC 15.1 H (3.8-10.6) k/uL RBC 3.02 L (4.30-5.90) m/uL Hgb 8.4 L (13.0-17.5) gm/dL Hct 27.1 L (39.0-53.0) % RDW 16.2 H (11.5-15.5) % Sodium 129 L (137-145) mmol/L Chloride 96 L (98-107) mmol/L BUN 50 H (9-20) mg/dL Creatinine 1.57 H (0.66-1.25) mg/dL Glucose 114 H (74-99) mg/dL POC Glucose (mg/dL) 119 H (75-99) mg/dL Calcium 7.8 L (8.4-10.2) mg/dL 03/07/22 03/07/22 03/07/22 Range/Units 09:15 09:15 11:36 WBC 16.5 H (3.8-10.6) k/uL RBC 3.16 L (4.30-5.90) m/uL Hgb 8.8 L (13.0-17.5) gm/dL Hct 28.5 L (39.0-53.0) % RDW 16.5 H (11.5-15.5) % Sodium 129 L (137-145) mmol/L Chloride 96 L (98-107) mmol/L BUN 47 H (9-20) mg/dL Creatinine 1.38 H (0.66-1.25) mg/dL Glucose (74-99) mg/dL POC Glucose (mg/dL) 168 H (75-99) mg/dL Calcium 7.7 L (8.4-10.2) mg/dL 03/07/22 03/07/22 Range/Units 16:17 20:14 WBC (3.8-10.6) k/uL RBC (4.30-5.90) m/uL Hgb (13.0-17.5) gm/dL Hct (39.0-53.0) % RDW (11.5-15.5) % Sodium (137-145) mmol/L Chloride (98-107) mmol/L BUN (9-20) mg/dL Creatinine (0.66-1.25) mg/dL Glucose (74-99) mg/dL POC Glucose (mg/dL) 138 H 126 H (75-99) mg/dL Calcium (8.4-10.2) mg/dL Assessment and Plan Assessment: Acute GI bleed with hemoglobin 6.1 on admission. Status post EGD showed mild gastritis and no active bleeding noted. Acute blood loss anemia Gallbladder wall thickening possible acute cholecystitis as per CT. Lactic acidosis 2.8 on admission. improved Mildly elevated troponin level/troponin leak Chronic CHF with systolic dysfunction. ejection fraction 30 to 35%. status post AICD placement History of ID Coronary disease with history of stent placement GERD Hyperlipidemia Diabetes type 2 uncontrolled with hyperglycemia Hypertension patient is currently hypotensive History of prostate cancer status post laser/radiation History of basal cell and melanoma removed History of aortic valve replacement Peripheral vascular disease with femoropopliteal PTCA with stent placement History of abdominal aortogram with runoff Prior history of smoking GI prophylaxis on PPI and DVT prophylaxis with SCDs Plan: Patient will be continued on Protonix IV, changed to twice daily. Patient is s/p EGD by general surgery which showed mild gastritis. No active bleeding was noted. Continue with antibiotics in the form of ceftriaxone and Flagyl. Continue with IV hydration and monitor blood pressure closely. Patient is c urrently hypotensive. Repeat hemoglobin level after endoscopy is 7.2. Follow- up H&H closely. Surgery is planning for colonoscopy once medically stable. Hold blood pressure medications. Continue to follow closely. Prognosis is guarded at this time. Time with Patient: Greater than 30
--- NOTE | 2022-03-09 23:27 | P.PN ---
Subjective Progress Note Date: 03/08/22 Patient is a 81-year-old male with a known history of hypertension, hyperlipidemia, history of GI bleed, diabetes type 2, history of basal cell and melanoma, microcytic iron deficiency anemia and currently on iron supplementation at home, history of [place], coronary with history of stent placement, AICD placement, chronic CHF ejection fraction 30 to 35% and femoropopliteal PTCA with stent placement x2 and previous history of smoking presents to ER from [facility] due to low hemoglobin level. Patient's hemoglobin on admission was 6.1. Patient was seen in the ER on 02/14/2022 with a hemoglobin of 6.6 and was transferred to [facility] since there was no GI coverage at that time. Patient had normal hemoglobin level 11.2 on 02/04/2022. Patient had colonoscopy at [facility] and was discharged back to [facility]. Patient has been having dark stools and is also taking iron supplementation at home. No complaints of abdominal pain. No hematemesis. No nausea vomiting. Denies any complaints of shortness of breath. No fever no chills. No chest pain. No leg swelling. No cough or sputum production. Patient is not any blood thinners. On admission hemoglobin 6.1 WBC 15.7 and platelets 381 Sodium 126 potassium 4.3 chloride 93 bicarbonate 21 BUN 41 creatinine 1.20 and lactic acid 2.8 blood sugar is 238 and troponin 0.075 FOBT positive 03/07/2022 patient is status post EGD showed mild gastritis and duodenitis. Patient has been complaining of right upper quadrant abdominal pain yesterday. CT of abdomen pelvis was done which showed inflammatory changes around the gallbladder with cholelithiasis concerning for acute cholecystitis. Small bilateral pleural effusions. Patient was started on antibiotics empirically. Patient otherwise complains of generalized weakness. Currently on IV hydration. Laboratory data showed WBC 16.1 hemoglobin 8.8 and platelets 317 Sodium 129 potassium 4.1 chloride 96 BUN 47 creatinine 1.38 and calcium 7.7. General surgery is on board. Patient is being current PPI. 03/08/2022 Patient is currently resting in bed. Complains of shortness of breath. Denies any complaints of chest pain. No nausea or vomiting. Laboratory data showed BUN 45 and creatinine 1.36 increased AST 368 and ALT 316 alk phos 93 Leukocytosis trending down to 13.7 hemoglobin improved to 9.3 and platelets 354. Ultrasound of the liver, gallbladder showed suspected gallbladder polyp. Patient is being current antibiotics and PPI. Current medications reviewed. Objective - Vital Signs Vital signs: Vital Signs Temp 97 F L 03/08/22 12:00 Pulse 79 03/08/22 12:00 Resp 18 03/08/22 12:00 BP 86/43 03/08/22 12:00 Pulse Ox 97 03/08/22 12:00 Intake & Output 03/07/22 03/08/22 03/08/22 18:59 06:59 18:59 Intake Total 870 0 Output Total 550 300 650 Balance -550 570 -650 Intake: Intake, IV Titration 750 Amount Sodium Chloride 0.9% 1, 650 000 ml @ 10 mls/hr IV . Q24H MOHAN Rx#:[id number] metroNIDAZOLE-NS PMX 500 100 mg In Saline 1 100ml.bag @ 100 mls/hr IVPB Q8HR MOHAN Rx#:[id number] Oral 120 0 Output: Urine 550 300 650 Other: Voiding Method Indwelling Catheter Indwelling Catheter # Bowel Movements 2 - Exam PHYSICAL EXAMINATION: Patient is lying in the bed comfortably, no acute distress, awake alert and oriented.. HEENT: Normocephalic. Neck is supple. Pupils reactive. Nostrils clear. Oral cavity is moist. Neck reveals no JVD, carotid bruits, or thyromegaly. CHEST EXAMINATION: Trachea is central. Symmetrical expansion. Scattered crackles. No wheezing. Nonlabored breathing.. CARDIAC: Normal S1, S2 with no gallops. No murmurs ABDOMEN: Soft. Bowel sounds normal. No organomegaly. No abdominal bruits. Extremities: reveal no edema. No clubbing or cyanosis Neurologically awake, alert, oriented x3 with well-coordinated movements. No focal deficits noted Skin: No rash or skin lesions. Psychiatric: Coperative. Nonsuicidal Musculoskeletal: No joint swelling or deformity. Normal range of motion. - Labs CBC & Chem 7: 03/09/22 07:27 03/09/22 07:27 Labs: Abnormal Lab Results - Last 24 Hours (Table) 03/07/22 03/07/22 03/08/22 Range/Units 16:17 20:14 06:28 WBC (3.8-10.6) k/uL RBC (4.30-5.90) m/uL Hgb (13.0-17.5) gm/dL Hct (39.0-53.0) % MCHC (31.0-37.0) g/dL RDW (11.5-15.5) % Neutrophils # (1.3-7.7) k/uL Lymphocytes # (1.0-4.8) k/uL Sodium (137-145) mmol/L Carbon Dioxide (22-30) mmol/L BUN (9-20) mg/dL Creatinine (0.66-1.25) mg/dL Glucose (74-99) mg/dL POC Glucose (mg/dL) 138 H 126 H 132 H (75-99) mg/dL Calcium (8.4-10.2) mg/dL AST (17-59) U/L ALT (4-49) U/L Total Protein (6.3-8.2) g/dL Albumin (3.5-5.0) g/dL 03/08/22 03/08/22 03/08/22 Range/Units 08:06 08:06 11:48 WBC 13.7 H (3.8-10.6) k/uL RBC 3.33 L (4.30-5.90) m/uL Hgb 9.3 L (13.0-17.5) gm/dL Hct 30.4 L (39.0-53.0) % MCHC 30.8 L (31.0-37.0) g/dL RDW 16.4 H (11.5-15.5) % Neutrophils # 11.9 H (1.3-7.7) k/uL Lymphocytes # 0.6 L (1.0-4.8) k/uL Sodium 131 L (137-145) mmol/L Carbon Dioxide 20 L (22-30) mmol/L BUN 45 H (9-20) mg/dL Creatinine 1.36 H (0.66-1.25) mg/dL Glucose 122 H (74-99) mg/dL POC Glucose (mg/dL) 170 H (75-99) mg/dL Calcium 7.8 L (8.4-10.2) mg/dL AST 368 H (17-59) U/L ALT 369 H (4-49) U/L Total Protein 5.6 L (6.3-8.2) g/dL Albumin 2.9 L (3.5-5.0) g/dL Assessment and Plan Assessment: Acute GI bleed with hemoglobin 6.1 on admission. Status post EGD showed mild gastritis and no active bleeding noted. Acute blood loss anemia Gallbladder wall thickening possible acute cholecystitis as per CT. Lactic acidosis 2.8 on admission. improved Mildly elevated troponin level/troponin leak Chronic CHF with systolic dysfunction. ejection fraction 30 to 35%. status post AICD placement History of WA Coronary disease with history of stent placement GERD Hyperlipidemia Diabetes type 2 uncontrolled with hyperglycemia Hypertension patient is currently hypotensive History of prostate cancer status post laser/radiation History of basal cell and melanoma removed History of aortic valve replacement Peripheral vascular disease with femoropopliteal PTCA with stent placement History of abdominal aortogram with runoff Prior history of smoking GI prophylaxis on PPI and DVT prophylaxis with SCDs Plan: Patient will be continued on Protonix IV, changed to twice daily. Patient is s/p EGD by general surgery which showed mild gastritis. No active bleeding was noted. Continue with antibiotics in the form of ceftriaxone and Flagyl. Continue with IV hydration and monitor blood pressure closely. Patient is c urrently hypotensive. Repeat hemoglobin level after endoscopy is 7.2. Follow- up H&H closely. Surgery is planning for colonoscopy once medically stable. Hold blood pressure medications. Continue to follow closely. Prognosis is guarded at this time.
--- NOTE | 2022-03-09 23:32 | P.PN ---
Subjective Progress Note Date: 03/09/22 Patient is a 81-year-old male with a known history of hypertension, hyperlipidemia, history of GI bleed, diabetes type 2, history of basal cell and melanoma, microcytic iron deficiency anemia and currently on iron supplementation at home, history of [place], coronary with history of stent placement, AICD placement, chronic CHF ejection fraction 30 to 35% and femoropopliteal PTCA with stent placement x2 and previous history of smoking presents to ER from [facility] due to low hemoglobin level. Patient's hemoglobin on admission was 6.1. Patient was seen in the ER on 02/14/2022 with a hemoglobin of 6.6 and was transferred to [facility] since there was no GI coverage at that time. Patient had normal hemoglobin level 11.2 on 02/04/2022. Patient had colonoscopy at [facility] and was discharged back to [facility]. Patient has been having dark stools and is also taking iron supplementation at home. No complaints of abdominal pain. No hematemesis. No nausea vomiting. Denies any complaints of shortness of breath. No fever no chills. No chest pain. No leg swelling. No cough or sputum production. Patient is not any blood thinners. On admission hemoglobin 6.1 WBC 15.7 and platelets 381 Sodium 126 potassium 4.3 chloride 93 bicarbonate 21 BUN 41 creatinine 1.20 and lactic acid 2.8 blood sugar is 238 and troponin 0.075 FOBT positive 03/07/2022 patient is status post EGD showed mild gastritis and duodenitis. Patient has been complaining of right upper quadrant abdominal pain yesterday. CT of abdomen pelvis was done which showed inflammatory changes around the gallbladder with cholelithiasis concerning for acute cholecystitis. Small bilateral pleural effusions. Patient was started on antibiotics empirically. Patient otherwise complains of generalized weakness. Currently on IV hydration. Laboratory data showed WBC 16.1 hemoglobin 8.8 and platelets 317 Sodium 129 potassium 4.1 chloride 96 BUN 47 creatinine 1.38 and calcium 7.7. General surgery is on board. Patient is being current PPI. 03/08/2022 Patient is currently resting in bed. Complains of shortness of breath. Denies any complaints of chest pain. No nausea or vomiting. Laboratory data showed BUN 45 and creatinine 1.36 increased AST 368 and ALT 316 alk phos 93 Leukocytosis trending down to 13.7 hemoglobin improved to 9.3 and platelets 354. Ultrasound of the liver, gallbladder showed suspected gallbladder polyp. Patient is being current antibiotics and PPI. 03/09/2022 Patient is complaining of right leg numbness and weakness today. Patient is also complaining of lower back pain. Patient does have chronic right upper extremity weakness. Denies any slurred speech. No facial droop. Patient was concerned about having stents placed in the leg in the past. Patient does have prior history of stroke. Otherwise denies any complaints of shortness of breath. No chest pain. No abdo ulisses pain. Laboratory data showed AST 618 ALT 528 and alk phos 100. WBC 9.9 hemoglobin 8.6 and platelets 291 Current medications reviewed. Objective - Vital Signs Vital signs: Vital Signs Temp 97.5 F L 03/09/22 20:00 Pulse 68 03/09/22 20:00 Resp 22 03/09/22 20:00 BP 126/69 03/09/22 20:00 Pulse Ox 95 03/09/22 20:00 Intake & Output 03/09/22 03/09/22 03/10/22 06:59 18:59 06:59 Intake Total 240 Output Total 750 1225 300 Balance -750 -985 -300 Intake: Oral 240 Output: Urine 750 1225 300 Other: Voiding Method Indwelling Catheter Indwelling Catheter Indwelling Catheter - Exam PHYSICAL EXAMINATION: Patient is lying in the bed comfortably, no acute distress, awake alert and oriented.. HEENT: Normocephalic. Neck is supple. Pupils reactive. Nostrils clear. Oral cavity is moist. Neck reveals no JVD, carotid bruits, or thyromegaly. CHEST EXAMINATION: Trachea is central. Symmetrical expansion. Scattered crackles. No wheezing. Nonlabored breathing.. CARDIAC: Normal S1, S2 with no gallops. No murmurs ABDOMEN: Soft. Bowel sounds normal. No organomegaly. No abdominal bruits. Extremities: reveal no edema. No clubbing or cyanosis Neurologically awake, alert, oriented x3 Right upper extremity weakness. Right lower extremity paralysis and numbness. No slurred speech or facial droop. Skin: No rash or skin lesions. Psychiatric: Coperative. Nonsuicidal Musculoskeletal: No joint swelling or deformity. Normal range of motion. - Labs CBC & Chem 7: 03/09/22 07:27 03/09/22 07:27 Labs: Abnormal Lab Results - Last 24 Hours (Table) 03/09/22 03/09/22 03/09/22 Range/Units 07:27 07:27 07:27 RBC 3.08 L (4.30-5.90) m/uL Hgb 8.6 L (13.0-17.5) gm/dL Hct 27.7 L (39.0-53.0) % MCHC 30.9 L (31.0-37.0) g/dL RDW 16.1 H (11.5-15.5) % Neutrophils # 8.7 H (1.3-7.7) k/uL Lymphocytes # 0.3 L (1.0-4.8) k/uL Sodium 129 L (137-145) mmol/L Carbon Dioxide 21 L (22-30) mmol/L BUN 45 H (9-20) mg/dL Creatinine 1.40 H (0.66-1.25) mg/dL POC Glucose (mg/dL) (75-99) mg/dL Calcium 7.7 L (8.4-10.2) mg/dL AST 618 H (17-59) U/L ALT 528 H (4-49) U/L Total Protein 5.3 L (6.3-8.2) g/dL Albumin 2.6 L (3.5-5.0) g/dL Vitamin B12 >2000.0 H (200.0-944.0) pg/mL 03/09/22 03/09/22 Range/Units 16:22 20:00 RBC (4.30-5.90) m/uL Hgb (13.0-17.5) gm/dL Hct (39.0-53.0) % MCHC (31.0-37.0) g/dL RDW (11.5-15.5) % Neutrophils # (1.3-7.7) k/uL Lymphocytes # (1.0-4.8) k/uL Sodium (137-145) mmol/L Carbon Dioxide (22-30) mmol/L BUN (9-20) mg/dL Creatinine (0.66-1.25) mg/dL POC Glucose (mg/dL) 102 H 108 H (75-99) mg/dL Calcium (8.4-10.2) mg/dL AST (17-59) U/L ALT (4-49) U/L Total Protein (6.3-8.2) g/dL Albumin (3.5-5.0) g/dL Vitamin B12 (200.0-944.0) pg/mL Assessment and Plan Assessment: Acute GI bleed with hemoglobin 6.1 on admission. Status post EGD showed mild gastritis and no active bleeding noted. Acute blood loss anemia Gallbladder wall thickening possible acute cholecystitis as per CT. Lactic acidosis 2.8 on admission. improved Mildly elevated troponin level/troponin leak Chronic CHF with systolic dysfunction. ejection fraction 30 to 35%. status po st AICD placement History of ME Coronary disease with history of stent placement GERD Hyperlipidemia Diabetes type 2 uncontrolled with hyperglycemia Hypertension patient is currently hypotensive History of prostate cancer status post laser/radiation History of basal cell and melanoma removed History of aortic valve replacement Peripheral vascular disease with femoropopliteal PTCA with stent placement History of abdominal aortogram with runoff Prior history of smoking GI prophylaxis on PPI and DVT prophylaxis with SCDs Plan: Patient will be continued on Protonix IV, changed to twice daily. Patient is s/p EGD by general surgery which showed mild gastritis. No active bleeding was noted. Continue with antibiotics in the form of ceftriaxone and Flagyl. CT head was ordered due to right lower extremity tingling sensation and numbness and weakness. Neurology was consulted for evaluation. CT angio of the head and neck and lumbar spine CT was ordered due to complaints of low back pain. monitor blood pressure closely. Patient is currently hypotensive. Follow-up H&H closely. Hold blood pressure medications. Continue to follow closely. Prognosis is guarded at this time. Time with Patient: Greater than 30
[2022-03-10 06:09] LABS: Glucose,Whole Blood 71 mg/dL (75-99)
[2022-03-10] MEDS: INSULIN ASPART (NovoLOG) 100 UNIT/ML VIAL SQ SCH ×4 (06:13→21:11)
[2022-03-10] MEDS: MIDODRINE 5 MG TAB PO SCH ×2 (06:47→18:03)
[2022-03-10] MEDS: FUROSEMIDE 20 MG TAB PO SCH (06:47)
--- NOTE | 2022-03-10 07:19 | P.PN ---
Progress Note - Text Progress Note Date: 03/10/22 Imaging and chart Reviewed. Full consult pending. Pt CT L spine shows multilevel degenerative changes that are chronic. These cause varying degrees of moderate to severe central and foraminal stenosis. MRI would better quantify. While it could contribute to leg weakness overall, unlikely to cause acute paralysis of the leg. This more likely to be cord or UNPAID INTERN level, however difficult to rule out lumbar as contributing issue. Would recommend steroids to start. Depends on pt wishes, potential MRI and surgical candidacy as seems poor at this time. Will continue to evaluate.
[2022-03-10 07:20] LABS: Albumin 2.6 g/dL (3.5-5.0); Calcium 7.6 mg/dL (8.4-10.2); Total Bilirubin 0.9 mg/dL (0.2-1.3); Total Protein 5.6 g/dL (6.3-8.2)
[2022-03-10 07:34] LABS: Potassium 4.8 mmol/L (3.5-5.1)
[2022-03-10 07:36] LABS: Anisocytosis Slight; Basophils % (A) 0 %; Eosinophils # (A) 0.1 k/uL (0-0.7); Eosinophils % (A) 1 %; HCT 28.2 % (39.0-53.0); HGB 8.8 gm/dL (13.0-17.5); Hypochromasia Marked; Lymphocytes # (A) 0.5 k/uL (1.0-4.8); Lymphocytes % (A) 5 %; MCH 27.9 pg (25.0-35.0); MCHC 31.2 g/dL (31.0-37.0); MCV 89.4 fL (80.0-100.0); Mean Platelet Volume 8.7; Monocytes # (A) 0.6 k/uL (0-1.0); Monocytes % (A) 7 %; Neutrophils # (A) 8.2 k/uL (1.3-7.7); Neutrophils % (A) 86 %; Platelet Count 303 k/uL (150-450); Poikilocytosis Marked; RBC 3.15 m/uL (4.30-5.90); RDW 16.3 % (11.5-15.5); WBC 9.6 k/uL (3.8-10.6)
[2022-03-10] MEDS: METOPROLOL SUCCINATE (ER) 100 MG TAB.ER.24H PO SCH ×2 (09:05→21:11)
[2022-03-10] MEDS: PANTOPRAZOLE 40 MG/10 ML VIAL IVP SCH ×2 (09:05→21:11)
[2022-03-10] MEDS: AMIODARONE 200 MG TAB PO SCH (09:05)
[2022-03-10] MEDS: metroNIDAZOLE-NS PMX 500 MG in SALINE 1 100ML.BAG IVPB SCH ×3 (09:05→23:25)
[2022-03-10] MEDS: SPIRONOLACTONE 25 MG TAB PO SCH (09:05)
[2022-03-10] MEDS: EZETIMIBE 10 MG TAB PO SCH (09:06)
--- NOTE | 2022-03-10 09:48 | P.CNOR ---
History of Present Illness - 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 Patient presents to the emergency room due to anemia. We were consulted on 03/09/2022 due to patient complaining of right leg numbness and weakness. Patient also has complaint of lower back pain. Patient does have chronic right upper extremity weakness. Denies any slurred speech. No facial droop. Patient was concerned about having stents placed in the leg in the past. Mr. Ng does have prior history of stroke. Patient states that when he woke up on 03/09/2022 his right leg felt numb and weak, during assessment today patient was unable to move his right lower extremity. Patient did deny any sensation distal of right knee, he was able to feel light touch from right knee to right hip. CT of the lumbar spine shows multilevel degenerative changes that are chronic, which are cause varying degrees of moderate to severe central and foraminal stenosis. Patient denies any numbness tingling to the perineal region. He denies any loss of bowel or bladder. Review of Systems Pertinent postivites and negatives as dicussed in [facility], a complete review of systems was performed and all other sysytems are negative. Physical Examination General: The patient is awake and alert, in no acute distress Skin: Skin is warm and dry with no obvious rashes or lesions. Hairy patches absent, no dorsal skin dimples, no cafe au lait spots, and no surgical incisions. Eye: Pupils are equal, round and reactive to light, extra-ocular movements are intact; there is normal conjunctiva bilaterally. Neck: The neck is supple, there is no tenderness and ROM intact. Cardiovascular: There is a regular rate and rhythm. No murmur, rub or gallop is appreciated. Respiratory: Lungs are clear to auscultation, respirations are non-labored, breath sounds are equal. Gastrointestinal: Soft, non-distended, non-tender abdomen. Back: There is no tenderness to palpation in the midline, paralumbar, parathoracic or buttocks region. There is no obvious deformity. Musculoskeletal: FROM throughout with exception to right lower extremity. Shoulder abduction 5/5, elbow flexors 5/5, wrist dorsiflexors 4/5. finger abductor 4/5, manager etl 4/5, left hip flexor 4/5 right hip flexor 0/5, left knee flexor 4/5 right knee flexor 0/5, left ankle dorsiflexor 4/5 right ankle dorsiflexor 0/5, left ankle plantar flexion 4/5 right ankle plantar flexion 0/5, and left extensor hallucis 4/5 right extensor hallucis 0/5 Neurological: There are no obvious motor or sensory deficits with exception to RLE . Movement and coordination equal and intact to BUE and to RLE. Sensory exam to light touch intact; with exception to right lower extremity no sensation distally from right knee to toes. Reflexes 2/4 in bilateral upper. Negative Hoffmans, babinski, and clonus signs. Psychiatric: Cooperative, appropriate mood & affect, normal judgment. 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 We will continue to follow patient while in the hospital. I reviewed and discussed this case with my attending Dr. Lundberg, whom has reviewed this chart and films and is in agreement with assessment and plan of care as outlined above. I have personally seen and examined the patient, performed the documentation and the assessment and plan as written. Number of minutes spent on the visit: 20 Past Medical History Past Medical History: Cancer, Diabetes Mellitus, GERD/Reflux, GI Bleed, Hyperlipidemia, Hypertension, Myocardial Infarction (GA), Prostate Disorder, Skin Disorder, Vascular Disorder Additional Past Medical History / Comment(s): HX PROSTATE CA with radiation and laser sx, & Basal Cell and Melanoma microcytic iron deficiency anemia, d uodenitis Last Myocardial Infarction Date:: 1999 History of Any Multi-Drug Resistant Organisms: None Reported Past Surgical History: Adenoidectomy, AICD, Cardiac Valve Replacement, Heart Catheterization, Heart Catheterization With Stent, Tonsillectomy Additional Past Surgical History / Comment(s): 12/12/15 R fempop PTCA with stent X2.Other surgical hx 09/2015 TARV AT [facility]. HEART STENTS X3. Laser/Radiation Tx for Prosate CA. EXC Rt Upper Arm Melanoma, Basal Cell EXC FROM SCALP. PTCA 06/15/15, INDIRA 08/22/15. ABD AORTOGRAM W/ RUNOFF 12/10/15, EGD, colonoscopy with arteriovenous malformation. LEFT NECK BASAL CELL CA REMOVED Past Anesthesia/Blood Transfusion Reactions: No Reported Reaction Date of Last Stent Placement:: 1999 Type of Cardiac Device: AICD Device Placement Date:: 04/01/2016-[facility]-(model [id number] pt) Past Psychological History: No Psychological Hx Reported Smoking Status: Former smoker Past Alcohol Use History: Rare Past Drug Use History: None Reported - Past Family History Father Family Medical History: Diabetes Mellitus, Myocardial Infarction (GA) Additional Family Medical History / Comment(s): Father of a GA at age 64yrs. Mother History Unknown: Yes Family Medical History: No Reported History Additional Family Medical History / Comment(s): Mother at age 68 yrs. Medications and Allergies Home Medications Medication Instructions Recorded Confirmed Type gemfibroziL [Lopid] 600 mg PO BID@0900,209902/27/17 03/06/22 History Ezetimibe 10 mg PO HS@2100 11/04/19 03/06/22 History Pantoprazole Sodium [Protonix] 40 mg PO LAVONNE-DELMAKFST #30 tablet. 11/10/19 03/06/22 Rx Ferrous Sulfate [Iron (65 MG 325 mg PO BID@0900,209904/07/21 03/06/22 History Elemental)] Atorvastatin [Lipitor] 40 mg PO HS #30 tab 02/05/22 03/06/22 Rx Apixaban [Eliquis] 5 mg PO BID@0900,209902/14/22 03/06/22 History Clopidogrel [Plavix] 75 mg PO DAILY@0900 03/06/22 03/06/22 History Docusate [Colace] 100 mg PO BID@09,209903/06/22 03/06/22 History Furosemide [Lasix] 20 mg PO DAILY@0600 03/06/22 03/06/22 History INSULIN LISPRO (humaLOG) [humaLOG] See Protocol SQ ACHS 03/06/22 03/06/22 History Insulin Glargine,Hum.rec.anlog 12 unit SQ HS@209903/06/22 03/06/22 History [Lantus Solostar Pen] Melatonin 3 mg PO HS@209903/06/22 03/06/22 History Metoprolol Tartrate [Lopressor] 50 mg PO DAILY@89903/06/22 03/06/22 History Polyethylene Glycol 3350 [Miralax] 17 gm PO BID@0900,209903/06/22 03/06/22 History Allergies Allergy/AdvReac Type Severity Reaction Status Date / Time bismuth subsalicylate AdvReac Severe ABD PAIN, Verified 03/06/22 07:20 [From Pepto-Bismol] N/V molasses AdvReac Severe Nausea & Uncoded 03/06/22 00:23 Vomiting Results - Labs Labs: Abnormal Lab Results - Last 24 Hours (Table) 03/09/22 03/09/22 03/09/22 Range/Units 07:27 16:22 20:00 RBC (4.30-5.90) m/uL Hgb (13.0-17.5) gm/dL Hct (39.0-53.0) % RDW (11.5-15.5) % Neutrophils # (1.3-7.7) k/uL Lymphocytes # (1.0-4.8) k/uL Sodium (137-145) mmol/L Carbon Dioxide (22-30) mmol/L BUN (9-20) mg/dL POC Glucose (mg/dL) 102 H 108 H (75-99) mg/dL Calcium (8.4-10.2) mg/dL AST (17-59) U/L ALT (4-49) U/L Total Protein (6.3-8.2) g/dL Albumin (3.5-5.0) g/dL Vitamin B12 >2000.0 H (200.0-944.0) pg/mL 03/10/22 03/10/22 03/10/22 Range/Units 06:07 06:48 06:48 RBC 3.15 L (4.30-5.90) m/uL Hgb 8.8 L (13.0-17.5) gm/dL Hct 28.2 L (39.0-53.0) % RDW 16.3 H (11.5-15.5) % Neutrophils # 8.2 H (1.3-7.7) k/uL Lymphocytes # 0.5 L (1.0-4.8) k/uL Sodium 129 L (137-145) mmol/L Carbon Dioxide 19 L (22-30) mmol/L BUN 35 H (9-20) mg/dL POC Glucose (mg/dL) 71 L (75-99) mg/dL Calcium 7.6 L (8.4-10.2) mg/dL AST 326 H (17-59) U/L ALT 396 H (4-49) U/L Total Protein 5.6 L (6.3-8.2) g/dL Albumin 2.6 L (3.5-5.0) g/dL Vitamin B12 (200.0-944.0) pg/mL H & H 03/06/22 03/06/22 03/06/22 Range/Units 00:31 14:25 16:40 Hgb 6.1 L* 7.2 L 7.1 L (13.0-17.5) gm/dL Hct 20.0 L 23.4 L 23.6 L (39.0-53.0) % 03/07/22 03/07/22 03/08/22 Range/Units 02:10 09:15 08:06 Hgb 8.4 L 8.8 L 9.3 L (13.0-17.5) gm/dL Hct 27.1 L 28.5 L 30.4 L (39.0-53.0) % 03/09/22 03/10/22 Range/Units 07:27 06:48 Hgb 8.6 L 8.8 L (13.0-17.5) gm/dL Hct 27.7 L 28.2 L (39.0-53.0) % Result Diagrams: 03/10/22 06:48 03/10/22 06:48
[2022-03-10 11:41] LABS: Glucose,Whole Blood 105 mg/dL (75-99)
--- NOTE | 2022-03-10 11:57 | P.PN ---
Subjective Progress Note Date: 03/10/22 CHIEF COMPLAINT: GI bleed HISTORY OF PRESENT ILLNESS: Surgical service following in regards to patient's GI bleed. He did have black stools with anemia as well as being on oral iron supplement. Status post EGD revealing duodenitis, mild antral gastritis no evidence of any active upper bleeding. Patient has had no further bowel movements. Denies any further bleeding. She reports having a colonoscopy 2 weeks ago. Eliquis and plavix remain on hold. Patient continues to complain of right leg numbness and weakness. He denies any abdominal pain. Denies any pain in the leg. Denies any nausea or vomiting. Patient is followed by a orthopedic service And does have vascular surgery on consult due to right internal carotid artery stenosis and right leg numbness. Afebrile. WBC 9.6 hemoglobin 8.8 platelets 303 sodium 129 creatinine 0.97 AST is 326 ALT 396 total bilirubin 0.9. LFTs trending down. Patient did receive a dose of IV Lasix yesterday. Patient denies any right upper quadrant abdominal pain. Denies any pain eating. Abdominal ultrasound with suspected gallbladder polyp PHYSICAL EXAM: VITAL SIGNS: Reviewed. GENERAL: Well-developed in no acute distress. HEENT: No sclera icterus. Extraocular movements grossly intact. Moist buccal mucosa. Head is atraumatic, normocephalic. ABDOMEN: Soft. Nondistended. Nontender. NEUROLOGIC: Alert and oriented. Cranial nerves II through XII grossly intact. ASSESSMENT: 1. GI bleed and anemia hemoglobin stable at 8.8 2. Possible cholecystitis with no abdominal pain and mildly elevated LFTs 3. Status post EGD revealing duodenitis, mild antral gastritis no evidence of any active upper bleeding PLAN: -Continue supportive care -Continue workup on right leg numbness per neuro, orthopedics and vascular surgery -Continue antibiotics -Continue PPI -Continue to monitor hemoglobin Physician Sales Assistant note has been reviewed by physician. Signing provider agrees with the documented findings, assessment, and plan of care. Objective - Vital Signs Vital signs: Vital Signs Temp 97.3 F L 03/10/22 09:00 Pulse 62 03/10/22 09:00 Resp 20 03/10/22 09:00 BP 107/48 03/10/22 09:00 Pulse Ox 96 03/10/22 09:00 Intake & Output 03/09/22 03/10/22 03/10/22 18:59 06:59 18:59 Intake Total 240 Output Total 1225 950 Balance -985 -950 Intake: Oral 240 Output: Urine 1225 950 Other: Voiding Method Indwelling Catheter Indwelling Catheter Indwelling Catheter - Labs CBC & Chem 7: 03/10/22 06:48 03/10/22 06:48 Labs: Abnormal Lab Results - Last 24 Hours (Table) 03/09/22 03/09/22 03/09/22 Range/Units 07:27 16:22 20:00 RBC (4.30-5.90) m/uL Hgb (13.0-17.5) gm/dL Hct (39.0-53.0) % RDW (11.5-15.5) % Neutrophils # (1.3-7.7) k/uL Lymphocytes # (1.0-4.8) k/uL Sodium (137-145) mmol/L Carbon Dioxide (22-30) mmol/L BUN (9-20) mg/dL POC Glucose (mg/dL) 102 H 108 H (75-99) mg/dL Calcium (8.4-10.2) mg/dL AST (17-59) U/L ALT (4-49) U/L Total Protein (6.3-8.2) g/dL Albumin (3.5-5.0) g/dL Vitamin B12 >2000.0 H (200.0-944.0) pg/mL 03/10/22 03/10/22 03/10/22 Range/Units 06:07 06:48 06:48 RBC 3.15 L (4.30-5.90) m/uL Hgb 8.8 L (13.0-17.5) gm/dL Hct 28.2 L (39.0-53.0) % RDW 16.3 H (11.5-15.5) % Neutrophils # 8.2 H (1.3-7.7) k/uL Lymphocytes # 0.5 L (1.0-4.8) k/uL Sodium 129 L (137-145) mmol/L Carbon Dioxide 19 L (22-30) mmol/L BUN 35 H (9-20) mg/dL POC Glucose (mg/dL) 71 L (75-99) mg/dL Calcium 7.6 L (8.4-10.2) mg/dL AST 326 H (17-59) U/L ALT 396 H (4-49) U/L Total Protein 5.6 L (6.3-8.2) g/dL Albumin 2.6 L (3.5-5.0) g/dL Vitamin B12 (200.0-944.0) pg/mL
[2022-03-10] MEDS: SODIUM CHLORIDE 0.9% 1,000 ML IV SCH (12:38)
--- NOTE | 2022-03-10 13:02 | P.PN ---
Subjective Progress Note Date: 03/10/22 Patient was initially seen by Dr. Boris Galarza. Please refer to his note for detail. Patient is a 81-year-old male with multiple medical problems. Patient has right leg weakness for 2-3 days. patient states that his right leg would not work since "the other day". Sometimes when he lays down, his whole right leg aches since the weakness started. No aching in the left leg on both arms. He does get low back pain across, which he rates 10/10. This pain shoots down in the right leg and it swells up, off and on. patient denies any recent falls. Denies any problem controlling with bowels or bladder. Although he has a retained Jean catheter at this time. MRI of the brain and lumbar spine was ordered, but cannot be performed because of pacemaker. Vascular surgery has been consulted. Objective - Vital Signs Vital signs: Vital Signs Temp 97.3 F L 03/10/22 09:00 Pulse 62 03/10/22 09:00 Resp 20 03/10/22 09:00 BP 107/48 03/10/22 09:00 Pulse Ox 96 03/10/22 09:00 Intake & Output 03/09/22 03/10/22 03/10/22 18:59 06:59 18:59 Intake Total 240 Output Total 1225 950 Balance -985 -950 Intake: Oral 240 Output: Urine 1225 950 Other: Voiding Method Indwelling Catheter Indwelling Catheter Indwelling Catheter - Exam Patient is an elderly male, very pleasant, in no acute distress. Patient's mental status, speech and language functions are normal. Patient is slightly short of breath. Cranial nerves are normal. On muscle strength testing the strength is normal in the upper limbs. His right deltoid is severely weak from arthritis/rotator cuff, which is chronic. 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 in the lower extremities (right/left) hip flexion 0/2, knee extension 2-3-/5, hip abduction 4-/4+, hip adduction 4+5-/4+5-, ankle dorsiflexion 0/4+, toe extension 0/4, inversion 0/4 Deep tendon reflexes are almost absent except left biceps which is trace. Plantars are flat. Sensory to touch is severely decreased from below the groin all the way to the right foot. The sensation is normal in the left leg and both arms. Patient has moderate peripheral edema. Peripheral pulses are not clearly felt. - Labs CBC & Chem 7: 03/11/22 06:24 03/11/22 06:24 Labs: Abnormal Lab Results - Last 24 Hours (Table) 03/09/22 03/09/22 03/09/22 Range/Units 07:27 16:22 20:00 RBC (4.30-5.90) m/uL Hgb (13.0-17.5) gm/dL Hct (39.0-53.0) % RDW (11.5-15.5) % Neutrophils # (1.3-7.7) k/uL Lymphocytes # (1.0-4.8) k/uL Sodium (137-145) mmol/L Carbon Dioxide (22-30) mmol/L BUN (9-20) mg/dL POC Glucose (mg/dL) 102 H 108 H (75-99) mg/dL Calcium (8.4-10.2) mg/dL AST (17-59) U/L ALT (4-49) U/L Total Protein (6.3-8.2) g/dL Albumin (3.5-5.0) g/dL Vitamin B12 >2000.0 H (200.0-944.0) pg/mL 03/10/22 03/10/22 03/10/22 Range/Units 06:07 06:48 06:48 RBC 3.15 L (4.30-5.90) m/uL Hgb 8.8 L (13.0-17.5) gm/dL Hct 28.2 L (39.0-53.0) % RDW 16.3 H (11.5-15.5) % Neutrophils # 8.2 H (1.3-7.7) k/uL Lymphocytes # 0.5 L (1.0-4.8) k/uL Sodium 129 L (137-145) mmol/L Carbon Dioxide 19 L (22-30) mmol/L BUN 35 H (9-20) mg/dL POC Glucose (mg/dL) 71 L (75-99) mg/dL Calcium 7.6 L (8.4-10.2) mg/dL AST 326 H (17-59) U/L ALT 396 H (4-49) U/L Total Protein 5.6 L (6.3-8.2) g/dL Albumin 2.6 L (3.5-5.0) g/dL Vitamin B12 (200.0-944.0) pg/mL 03/10/22 Range/Units 11:38 RBC (4.30-5.90) m/uL Hgb (13.0-17.5) gm/dL Hct (39.0-53.0) % RDW (11.5-15.5) % Neutrophils # (1.3-7.7) k/uL Lymphocytes # (1.0-4.8) k/uL Sodium (137-145) mmol/L Carbon Dioxide (22-30) mmol/L BUN (9-20) mg/dL POC Glucose (mg/dL) 105 H (75-99) mg/dL Calcium (8.4-10.2) mg/dL AST (17-59) U/L ALT (4-49) U/L Total Protein (6.3-8.2) g/dL Albumin (3.5-5.0) g/dL Vitamin B12 (200.0-944.0) pg/mL Assessment and Plan Assessment: Acute severe right leg weakness, differential diagnosis is between a polyradiculopathy from lumbar spinal stenosis versus lumbosacral plexopathy related to poorly controlled diabetes. Patient's weakness is predominantly in the right leg, but the left leg is also weaker as compared to the previous e xamination from January 2022. Hypotensive episodes during this admission Acute kidney insufficiency Elevated LFT's (AST/ALT) Acute on chronic anemia suspected GI bleed and on presentation and had hemog lobin of 6.1 History of stroke with residual weakness of right upper extremity. Left ICA stenosis s/p stenting on 02/03/2022 (by Dr. Rodriguez) History of GI bleed History of basal cell carcinoma and melanoma that was removed History of cardiology status post stent s/p AICD Diabetes mellitus type 2, poorly controlled with A1c 10.9 Hypertension and during this hospital visit has hypotensive episode History of prostate cancer status post the radiation and laser History of aortic valve replacement History of peripheral vascular disease with femoral popliteal PTCA with stent placement History of abdominal aortogram thrown off Prior history of smoking Plan: Patient probably has severe spinal stenosis with lumbosacral polyradiculopathy. Dr. Lundberg onboard and recommended CT myelogram of cervical thoracic and lumbar spine, which I agree with. I would also suggest lumbar puncture to evaluate for spinal fluid proteins to evaluate for any signs of inflammatory jaime yradiculopathy. Optimize control of diabetes to target A1c <7.0. At present patient's A1c is 10.9. CT head reported as Age related atrophic and chronic small vessel ischemic change without acute intracrial process seen at this time. Antiplatelets and anticoagulation (was on Plavix 75mg and eliquis 5mg bid -- home meds) on hold because of his anemia suspected GI bleed. On lipitor 40mg daily CT of the lumbar spine showed multilevel degenerative changes. These cause bleeding degrees of moderate to severe central and foraminal stenosis. Orthopedic surgery on board. TSH normal, vitamin B12 >2000, folate 10.4, ammonia <9. Q4 hour neuro checks PT and OT. General surgery team is on board for GI bleed Avoid hypotensive episodes and will defer management to primary team. Will defer the rest of medical management to the primary team. For DVT prophylaxis: Recommend SCD because of his anemia.
[2022-03-10] MEDS: ACETAMINOPHEN TAB 325 MG TAB PO PRN ×2 (15:20→21:10)
[2022-03-10 16:53] LABS: Glucose,Whole Blood 114 mg/dL (75-99)
[2022-03-10 19:08] LABS: Glucose,Whole Blood 150 mg/dL (75-99)
[2022-03-10] MEDS: ATORVASTATIN 40 MG TAB PO SCH (21:10)
[2022-03-10] MEDS: INSULIN DETEMIR (LEVEMIR) 100 UNIT/ML SYR SQ SCH (21:10)
[2022-03-11] MEDS: ACETAMINOPHEN TAB 325 MG TAB PO PRN (04:30)
[2022-03-11 05:43] LABS: Glucose,Whole Blood 117 mg/dL (75-99)
[2022-03-11] MEDS: MIDODRINE 5 MG TAB PO SCH ×2 (07:04→16:42)
[2022-03-11] MEDS: FUROSEMIDE 20 MG TAB PO SCH (07:04)
[2022-03-11 07:29] LABS: ALT 295 U/L (4-49); AST 162 U/L (17-59); African American GFR (CKD) >90 (>60 ml/min/1.73 sqM); Albumin 2.5 g/dL (3.5-5.0); Alkaline Phosphatase 100 U/L (38-126); Anion Gap 8 mmol/L; Blood Urea Nitrogen 23 mg/dL (9-20); Calcium 7.9 mg/dL (8.4-10.2); Carbon Dioxide 24 mmol/L (22-30); Chloride 99 mmol/L (98-107); Glucose 104 mg/dL (74-99); Non-African American GFR(CKD) 81 (>60 ml/min/1.73 sqM); Potassium 4.8 mmol/L (3.5-5.1); Sodium 131 mmol/L (137-145); Total Bilirubin 0.5 mg/dL (0.2-1.3); Total Protein 5.2 g/dL (6.3-8.2)
[2022-03-11 07:51] LABS: Anisocytosis Slight; Basophils % (A) 0 %; Eosinophils # (A) 0.1 k/uL (0-0.7); Eosinophils % (A) 1 %; HGB 8.9 gm/dL (13.0-17.5); Hypochromasia Marked; Lymphocytes # (A) 0.5 k/uL (1.0-4.8); Lymphocytes % (A) 5 %; MCH 27.3 pg (25.0-35.0); MCHC 30.6 g/dL (31.0-37.0); MCV 89.2 fL (80.0-100.0); Mean Platelet Volume 9.2; Monocytes # (A) 0.7 k/uL (0-1.0); Monocytes % (A) 8 %; Neutrophils # (A) 8.1 k/uL (1.3-7.7); Neutrophils % (A) 85 %; Platelet Count 350 k/uL (150-450); Poikilocytosis Marked; RBC 3.25 m/uL (4.30-5.90); RDW 16.2 % (11.5-15.5); WBC 9.5 k/uL (3.8-10.6)
--- NOTE | 2022-03-11 09:57 | P.PN ---
Subjective Progress Note Date: 03/10/22 Patient is a 81-year-old male with a known history of hypertension, hyperlipidemia, history of GI bleed, diabetes type 2, history of basal cell and melanoma, microcytic iron deficiency anemia and currently on iron supplementation at home, history of CT, coronary with history of stent placement, AICD placement, chronic CHF ejection fraction 30 to 35% and femoropopliteal PTCA with stent placement x2 and previous history of smoking presents to ER from [facility] due to low hemoglobin level. Patient's hemoglobin on admission was 6.1. Patient was seen in the ER on 02/14/2022 with a hemoglobin of 6.6 and was transferred to [facility] since there was no GI coverage at that time. Patient had normal hemoglobin level 11.2 on 02/04/2022. Patient had colonoscopy at [facility] and was discharged back to [facility]. Patient has been having dark stools and is also taking iron supplementation at home. No complaints of abdominal pain. No hematemesis. No nausea vomiting. Denies any complaints of shortness of breath. No fever no chills. No chest pain. No leg swelling. No cough or sputum production. Patient is not any blood thinners. On admission hemoglobin 6.1 WBC 15.7 and platelets 381 Sodium 126 potassium 4.3 chloride 93 bicarbonate 21 BUN 41 creatinine 1.20 and lactic acid 2.8 blood sugar is 238 and troponin 0.075 FOBT positive 03/07/2022 patient is status post EGD showed mild gastritis and duodenitis. Patient has been complaining of right upper quadrant abdominal pain yesterday. CT of abdomen pelvis was done which showed inflammatory changes around the gallbladder with cholelithiasis concerning for acute cholecystitis. Small bilateral pleural effusions. Patient was started on antibiotics empirically. Patient otherwise complains of generalized weakness. Currently on IV hydration. Laboratory data showed WBC 16.1 hemoglobin 8.8 and platelets 317 Sodium 129 potassium 4.1 chloride 96 BUN 47 creatinine 1.38 and calcium 7.7. General surgery is on board. Patient is being current PPI. 03/08/2022 Patient is currently resting in bed. Complains of shortness of breath. Denies any complaints of chest pain. No nausea or vomiting. Laboratory data showed BUN 45 and creatinine 1.36 increased AST 368 and ALT 316 alk phos 93 Leukocytosis trending down to 13.7 hemoglobin improved to 9.3 and platelets 354. Ultrasound of the liver, gallbladder showed suspected gallbladder polyp. Patient is being current antibiotics and PPI. 03/09/2022 Patient is complaining of right leg numbness and weakness today. Patient is also complaining of lower back pain. Patient does have chronic right upper extremity weakness. Denies any slurred speech. No facial droop. Patient was concerned about having stents placed in the leg in the past. Patient does have prior history of stroke. Otherwise denies any complaints of shortness of breath. No chest pain. No abdo ulisses pain. Laboratory data showed AST 618 ALT 528 and alk phos 100. WBC 9.9 hemoglobin 8.6 and platelets 291 03/10/2022 Patient is currently lying in the bed. Awake alert and oriented but feels very weak. Still complains ofright lower extremity weakness. right lower extremity weakness. Denied any complaints of chest pain. No complains of shortness of breath.laboratory data showed hemoglobin 8.8 platelets 303 sodium 129 potassium 4.8 and chloride 100. Patient is on clear liquid diet and will be advanced as tolerated. Lumbar spine CT showed severe spinal stenosis. Orthopedic surgery and neurology is on board. Patient is being continued on antibiotics the form of ceftriaxone and Flagyl. Blood pressure ismarginal and is also being continued onMidodrin. Current medications reviewed. Objective - Vital Signs Vital signs: Vital Signs Temp 97.2 F L 03/11/22 07:53 Pulse 64 03/11/22 07:53 Resp 22 03/11/22 07:53 BP 135/58 03/11/22 07:53 Pulse Ox 97 03/11/22 07:53 Intake & Output 03/10/22 03/11/22 03/11/22 18:59 06:59 18:59 Intake Total 476 420 Output Total 800 1275 Balance -324 -1275 420 Intake: Oral 476 420 Output: Urine 800 1275 Other: Voiding Method Indwelling Catheter Indwelling Catheter - Exam PHYSICAL EXAMINATION: Patient is lying in the bed comfortably, no acute distress, awake alert and oriented.. HEENT: Normocephalic. Neck is supple. Pupils reactive. Nostrils clear. Oral cavity is moist. Neck reveals no JVD, carotid bruits, or thyromegaly. CHEST EXAMINATION: Trachea is central. Symmetrical expansion. Scattered crackles. No wheezing. Nonlabored breathing.. CARDIAC: Normal S1, S2 with no gallops. No murmurs ABDOMEN: Soft. Bowel sounds normal. No organomegaly. No abdominal bruits. Extremities: reveal no edema. No clubbing or cyanosis Neurologically awake, alert, oriented x3 Right upper extremity weakness. Right lower extremity paralysis and numbness. No slurred speech or facial droop. Skin: No rash or skin lesions. Psychiatric: Coperative. Nonsuicidal Musculoskeletal: No joint swelling or deformity. Normal range of motion. - Labs CBC & Chem 7: 03/11/22 06:24 03/11/22 06:24 Labs: Abnormal Lab Results - Last 24 Hours (Table) 03/10/22 03/10/22 03/10/22 Range/Units 11:38 16:48 19:06 RBC (4.30-5.90) m/uL Hgb (13.0-17.5) gm/dL Hct (39.0-53.0) % MCHC (31.0-37.0) g/dL RDW (11.5-15.5) % Neutrophils # (1.3-7.7) k/uL Lymphocytes # (1.0-4.8) k/uL Sodium (137-145) mmol/L BUN (9-20) mg/dL Glucose (74-99) mg/dL POC Glucose (mg/dL) 105 H 114 H 150 H (75-99) mg/dL Calcium (8.4-10.2) mg/dL AST (17-59) U/L ALT (4-49) U/L Total Protein (6.3-8.2) g/dL Albumin (3.5-5.0) g/dL 03/11/22 03/11/22 03/11/22 Range/Units 05:40 06:24 06:24 RBC 3.25 L (4.30-5.90) m/uL Hgb 8.9 L (13.0-17.5) gm/dL Hct 29.0 L (39.0-53.0) % MCHC 30.6 L (31.0-37.0) g/dL RDW 16.2 H (11.5-15.5) % Neutrophils # 8.1 H (1.3-7.7) k/uL Lymphocytes # 0.5 L (1.0-4.8) k/uL Sodium 131 L (137-145) mmol/L BUN 23 H (9-20) mg/dL Glucose 104 H (74-99) mg/dL POC Glucose (mg/dL) 117 H (75-99) mg/dL Calcium 7.9 L (8.4-10.2) mg/dL AST 162 H (17-59) U/L ALT 295 H (4-49) U/L Total Protein 5.2 L (6.3-8.2) g/dL Albumin 2.5 L (3.5-5.0) g/dL Assessment and Plan Assessment: Acute GI bleed with hemoglobin 6.1 on admission. Status post EGD showed mild gastritis and no active bleeding noted. Hemoglobin 8.8 today. Acute blood loss anemia Gallbladder wall thickening possible acute cholecystitis as per CT. ultrasound showed no evidence of acute cholecystitis. Right lower extremity weakness. CT lumbar spine showed spinal stenosis. Orthopedic surgery is on board. Chronic right upper extremity weakness due to previous stroke Lactic acidosis 2.8 on admission. improved Mildly elevated troponin level/troponin leak Chronic CHF with systolic dysfunction. ejection fraction 30 to 35%. status post AICD placement History of CT Coronary disease with history of stent placement GERD Hyperlipidemia Diabetes type 2 uncontrolled with hyperglycemia Hypertension patient is currently hypotensive History of prostate cancer status post laser/radiation History of basal cell and melanoma removed History of aortic valve replacement Peripheral vascular disease with femoropopliteal PTCA with stent placement History of abdominal aortogram with runoff Prior history of smoking GI prophylaxis on PPI and DVT prophylaxis with SCDs Plan: Patient was seen by neurology due to right lower extremity weakness. CT lumbar spine was done which showed severe lumbar spinal stenosis.. Orthopedic surgery is on board. Patient will be continued on Protonix IV, changed to twice daily. Patient is s/p EGD by general surgery which showed mild gastritis. No active bleeding was noted. Continue with antibiotics in the form of ceftriaxone and Flagyl. monitor blood pressure closely. Patient is currently hypotensive. Follow-up H&H closely. Hold blood pressure medications. Continue to follow closely. Prognosis is guarded at this time. Time with Patient: Greater than 30
[2022-03-11] MEDS: AMIODARONE 200 MG TAB PO SCH (11:07)
[2022-03-11] MEDS: EZETIMIBE 10 MG TAB PO SCH (11:07)
[2022-03-11] MEDS: SPIRONOLACTONE 25 MG TAB PO SCH (11:08)
[2022-03-11] MEDS: PANTOPRAZOLE 40 MG/10 ML VIAL IVP SCH ×2 (11:08→20:48)
[2022-03-11] MEDS: METOPROLOL SUCCINATE (ER) 100 MG TAB.ER.24H PO SCH ×2 (11:08→20:48)
[2022-03-11] MEDS: INSULIN ASPART (NovoLOG) 100 UNIT/ML VIAL SQ SCH ×4 (11:15→20:48)
[2022-03-11] MEDS: SODIUM CHLORIDE 0.9% 1,000 ML IV SCH (11:15)
[2022-03-11] MEDS: metroNIDAZOLE-NS PMX 500 MG in SALINE 1 100ML.BAG IVPB SCH ×3 (11:25→23:35)
[2022-03-11 11:51] LABS: Glucose,Whole Blood 158 mg/dL (75-99)
--- NOTE | 2022-03-11 12:49 | P.CRDCN ---
History of Present Illness Consult date: 03/11/22 History of present illness: HISTORY OF PRESENT ILLNESS: This is a 81-year-old male with a past medical history significant for peripheral vascular disease with previous stenting, coronary artery disease with previous stenting, ischemic cardiomyopathy, previous AICD implantation, aortic valve replacement, paroxysmal atrial fibrillation, hypertension, and hyperlipidemia. Patient follows in the office with Dr. Coto. We have been asked to see the patient in consultation for significant PAD and right. Patient examined at the bedside. Patient is admitted to the hospital secondary to GI bleed. He is s/p EGD. He is also being evaluated for right lower extremity weakness. The patient currently denies chest pain or pressure. He denies SOB. He denies any pain of his lower extremities at the time of examination. * Chest xray pulmonary congestion increased compared to last exam and consistent with some congestive heart failure. No pulmonary consolidation. * Carotid doppler: There is arterial flow to the left internal carotid artery stent. There is bilateral elevated internal carotid artery velocity suggestive of 50-70% stenosis. * Laboratory data: WBC 9.5. Hemoglobin 8.9. Platelet count 350. Sodium 131. Potassium 4.8. BUN 8. Creatinine 0.86. * Current home cardiac medications include gemfibrozil 600 mg twice a day, metoprolol titrate 50 mg daily, Lasix 20 mg daily, Plavix 75 mg daily, Lipitor 40 mg daily, L Aquinas 5 mg twice a day * Most recent echocardiogram obtained in January 2022 revealed ejection fraction 35-40%, normally functioning bioprosthetic valve, trace MR, [id number] mitral stenosis, mild tricuspid regurgitation * Cardiac catheterization history: 2014 revealing chronic total occlusion of RCA. Intermediate disease involving the left coronary system. Patient had a previous cardiac catheterization in 1999 with stenting of the left circumflex and RCA. REVIEW OF SYSTEMS: At the time of my exam: CONSTITUTIONAL: Denies fever or chills. HEENT: Denies blurred vision, vision changes, or eye pain. Denies hemoptysis CARDIOVASCULAR: Denies chest pain. Denies orthopnea. Denies PND. Denies palpitations RESPIRATORY: Denies shortness of breath. GASTROINTESTINAL: Denies abdominal pain. Denies nausea or vomiting. HEMATOLOGIC: Denies bleeding disorders. GENITOURINARY: Denies any blood in urine. SKIN: Denies pruitis. Denies rash. PHYSICAL EXAM: VITAL SIGNS: Reviewed. GENERAL: Well-developed in no acute distress. HEENT: Head is normocephalic. Pupils are equal, round. Sclerae anicteric. Mucous membranes of the mouth are moist. Neck supple. No JVD or thyromegaly LUNGS: Respirations even and unlabored. Lungs diminished to auscultation bilaterally. HEART: Regular rate and rhythm. S1 and S2 heard. Systolic murmur. ABDOMEN: Soft. Nondistended. Nontender. EXTREMITIES: Normal range of motion. No clubbing or cyanosis. Peripheral pulses intact. No lower extremity edema NEUROLOGIC: Awake and alert. ASSESSMENT: Acute GI Bleed Coronary artery disease with previous PCI Peripheral vascular disease with previous stenting Carotid stenosis with previous left carotid stenting ischemic cardiomyopathy History of AICD implantation History of TAVR Paroxysmal atrial fibrillation Hypertension Hyperlipidemia PLAN: Continue current cardiac medications Eliquis and Plavix on hold due to anemia Patient does not have acute limb ischemia of RLE No immediate intervention warranted for carotid disease There is no further inpatient recommendations from a cardiac standpoint Discharge per medicine Patient to follow up outpatient with Dr. Coto We will sign off. Please reconsult if needed. Nurse practitioner note has been reviewed by physician. Signing provider agrees with the documented findings, assessment, and plan of care. Past Medical History Past Medical History: Cancer, Diabetes Mellitus, GERD/Reflux, GI Bleed, Hyperlipidemia, Hypertension, Myocardial Infarction (PA), Prostate Disorder, Skin Disorder, Vascular Disorder Additional Past Medical History / Comment(s): HX PROSTATE CA with radiation and laser sx, & Basal Cell and Melanoma microcytic iron deficiency anemia, duodenitis Last Myocardial Infarction Date:: 1999 History of Any Multi-Drug Resistant Organisms: None Reported Past Surgical History: Adenoidectomy, AICD, Cardiac Valve Replacement, Heart Catheterization, Heart Catheterization With Stent, Tonsillectomy Additional Past Surgical History / Comment(s): 12/12/15 R fempop PTCA with stent X2.Other [place] [facility] [place]. Laser/Radiation Tx for Prosate CA. EXC Rt Upper Arm Melanoma, Basal Cell EXC FROM SCALP. PTCA 06/15/15, INDIRA 08/22/15. ABD AORTOGRAM W/ RUNOFF 12/10/15, EGD, colonoscopy with arteriovenous malformation. LEFT NECK BASAL CELL CA REMOVED Past Anesthesia/Blood Transfusion Reactions: No Reported Reaction Date of Last Stent Placement:: 1999 Type of Cardiac Device: AICD Device Placement Date:: 04/01/2016-[place]-(model [id number]) Past Psychological History: No Psychological Hx Reported Smoking Status: Former smoker Past Alcohol Use History: Rare Past Drug Use History: None Reported - Past Family History Father Family Medical History: Diabetes Mellitus, Myocardial Infarction (PA) Additional Family Medical History / Comment(s): Father of a PA at age 64yr s. Mother History Unknown: Yes Family Medical History: No Reported History Additional Family Medical History / Comment(s): Mother at age 68 yrs. Medications and Allergies Home Medications Medication Instructions Recorded Confirmed Type gemfibroziL [Lopid] 600 mg PO BID@0900,209902/27/17 03/06/22 History Ezetimibe 10 mg PO HS@209911/04/19 03/06/22 History Pantoprazole Sodium [Protonix] 40 mg PO AC-LOUISE #30 tablet. 11/10/19 03/06/22 Rx Ferrous Sulfate [Iron (65 MG 325 mg PO BID@0900,209904/07/21 03/06/22 History Elemental)] Atorvastatin [Lipitor] 40 mg PO HS #30 tab 02/05/22 03/06/22 Rx Apixaban [Eliquis] 5 mg PO BID@0900,209902/14/22 03/06/22 History Clopidogrel [Plavix] 75 mg PO DAILY@0900 03/06/22 03/06/22 History Docusate [Colace] 100 mg PO BID@0900,209903/06/22 03/06/22 History Furosemide [Lasix] 20 mg PO DAILY@0600 03/06/22 03/06/22 History INSULIN LISPRO (humaLOG) [humaLOG] See Protocol SQ ACHS 03/06/22 03/06/22 History Insulin Glargine,Hum.rec.anlog 12 unit SQ HS@209903/06/22 03/06/22 History [Lantus Solostar Pen] Melatonin 3 mg PO HS@209903/06/22 03/06/22 History Metoprolol Tartrate [Lopressor] 50 mg PO DAILY@0900 03/06/22 03/06/22 History Polyethylene Glycol 3350 [Miralax] 17 gm PO BID@0900,2100 03/06/22 03/06/22 History Allergies Allergy/AdvReac Type Severity Reaction Status Date / Time bismuth subsalicylate AdvReac Severe ABD PAIN, Verified 03/06/22 07:20 [From Pepto-Bismol] N/V molasses AdvReac Severe Nausea & Uncoded 03/06/22 00:23 Vomiting Physical Exam Vitals: Vital Signs Temp Pulse Pulse Resp BP BP Pulse Ox 03/11/22 12:00 97.5 F L 60 18 111/64 99 03/11/22 09:51 54 L 52 L 20 03/11/22 07:53 97.2 F L 64 22 135/58 97 03/11/22 04:00 97.7 F 60 18 100/55 94 L 03/11/22 02:00 61 16 03/11/22 00:00 97.4 F L 61 16 99/55 94 L 03/10/22 20:00 97.8 F 67 16 110/54 98 03/10/22 15:15 98.1 F 64 16 109/60 99 Intake and Output 03/10/22 03/11/22 03/11/22 22:59 06:59 14:59 Intake Total 118 420 Output Total 800 1275 Balance -682 -1275 420 Intake: Oral 118 420 Output: Urine 800 1275 Other: Voiding Method Indwelling Catheter Indwelling Catheter Indwelling Catheter Results 03/11/22 06:24 03/11/22 06:24 Cardiac Enzymes 03/11/22 Range/Units 06:24 AST 162 H (17-59) U/L CBC 03/11/22 Range/Units 06:24 WBC 9.5 (3.8-10.6) k/uL RBC 3.25 L (4.30-5.90) m/uL Hgb 8.9 L (13.0-17.5) gm/dL Hct 29.0 L (39.0-53.0) % Plt Count 350 (150-450) k/uL Comprehensive Metabolic Panel 03/11/22 Range/Units 06:24 Sodium 131 L (137-145) mmol/L Potassium 4.8 (3.5-5.1) mmol/L Chloride 99 (98-107) mmol/L Carbon Dioxide 24 (22-30) mmol/L BUN 23 H (9-20) mg/dL Creatinine 0.86 (0.66-1.25) mg/dL Glucose 104 H (74-99) mg/dL Calcium 7.9 L (8.4-10.2) mg/dL AST 162 H (17-59) U/L ALT 295 H (4-49) U/L Alkaline Phosphatase 100 (38-126) U/L Total Protein 5.2 L (6.3-8.2) g/dL Albumin 2.5 L (3.5-5.0) g/dL Current Medications Generic Name Dose Route Start Last Admin Trade Name Freq PRN Reason Stop Dose Admin Acetaminophen 650 mg 03/06/22 05:26 03/11/22 04:30 Acetaminophen Tab 325 Mg Tab PO 650 mg Q6HR PRN Administration Mild Pain or Fever > 100.5 Amiodarone HCl 200 mg 03/06/22 09:00 03/11/22 11:07 Amiodarone 200 Mg Tab PO 200 mg DAILY MOHAN Administration Atorvastatin Calcium 40 mg 03/06/22 21:00 03/10/22 21:10 Atorvastatin 40 Mg Tab PO 40 mg HS MOHAN Administration Ezetimibe 10 mg 03/06/22 09:00 03/11/22 11:07 Ezetimibe 10 Mg Tab PO 10 mg DAILY MOHAN Administration Furosemide 20 mg 03/09/22 06:00 03/11/22 07:04 Furosemide 20 Mg Tab PO 20 mg DAILY@0600 MOHAN Administration Sodium Chloride 1,000 mls @ 10 mls/hr 03/06/22 05:30 03/11/22 11:15 Saline 0.9% IV 10 mls/hr .Q24H MOHAN Administration Ceftriaxone Sodium 1 gm/ 50 mls @ 100 mls/hr 03/07/22 10:15 03/11/22 11:00 Sodium Chloride IVPB 100 mls/hr Q24HR MOHAN Administration Protocol Metronidazole 500 mg/ IV 100 mls @ 100 mls/hr 03/07/22 10:15 03/11/22 11:25 Solution IVPB 100 mls/hr Q8HR MOHAN Administration Protocol Insulin Aspart 0 unit 03/06/22 12:30 03/11/22 11:15 Insulin Aspart (Novolog) 100 Unit/Ml Vial SQ Not Given ACHS [facility] Protocol Insulin Detemir 12 unit 03/06/22 21:00 03/10/22 21:10 Insulin Detemir (Levemir) 100 Unit/Ml Syr SQ 12 unit HS@2100 MOHAN Administration Lisinopril 2.5 mg 03/06/22 09:00 03/11/22 11:07 Lisinopril 2.5 Mg Tab PO 2.5 mg DAILY MOHAN Administration Metoprolol Succinate 100 mg 03/06/22 09:00 03/11/22 11:08 Metoprolol Succinate (Er) 100 Mg Tab.Er.24h PO 100 mg BID MOHAN Administration Midodrine 5 mg 03/06/22 17:30 03/11/22 07:04 Midodrine 5 Mg Tab PO 5 mg AC-BID MOHAN Administration Naloxone HCl 0.2 mg 03/06/22 05:26 Naloxone 0.4 Mg/Ml 1 Ml Vial IV Q2M PRN Opioid Reversal Pantoprazole Sodium 40 mg 03/06/22 21:00 03/11/22 11:08 Pantoprazole 40 Mg/10 Ml Vial IVP 40 mg BID MOHAN Administration Spironolactone 12.5 mg 03/06/22 09:00 03/11/22 11:08 Spironolactone 25 Mg Tab PO 12.5 mg DAILY MOHAN Administration Intake and Output 03/10/22 03/11/22 03/11/22 22:59 06:59 14:59 Intake Total 118 420 Output Total 800 1275 Balance -270 -9158 420 Intake: Oral 118 420 Output: Urine 800 1275 Other: Voiding Method Indwelling Catheter Indwelling Catheter Indwelling Catheter 03/11/22 06:24 03/11/22 06:24
--- NOTE | 2022-03-11 14:18 | P.PN ---
Subjective Progress Note Date: 03/11/22 CHIEF COMPLAINT: GI bleed HISTORY OF PRESENT ILLNESS: Surgical service following in regards to patient's GI bleed. He did have black stools with anemia as well as being on oral iron supplement. Status post EGD revealing duodenitis, mild antral gastritis no evidence of any active upper bleeding. Patient has had no further bowel movements. Denies any further bleeding. He is having flatus. He reports having a colonoscopy 2 weeks ago. Eliquis and plavix remain on hold. Patient continues to complain of right leg numbness and weakness. He denies any abdominal pain. Afebrile. Patient's blood pressure has improved. He did have some hypotension that possibly could contribute to his rise in LFTs. Hemoglobin 8.9 LFTs continued to trend downwards PHYSICAL EXAM: VITAL SIGNS: Reviewed. GENERAL: Well-developed in no acute distress. HEENT: No sclera icterus. Extraocular movements grossly intact. Moist buccal mucosa. Head is atraumatic, normocephalic. ABDOMEN: Soft. Nondistended. Nontender. NEUROLOGIC: Alert and oriented. Cranial nerves II through XII grossly intact. ASSESSMENT: 1. GI bleed and anemia hemoglobin stable at 8.8 2. Possible cholecystitis with no abdominal pain and mildly elevated LFTs. Gallbladder polyp on ultrasound 3. Status post EGD revealing duodenitis, mild antral gastritis no evidence of any active upper bleeding PLAN: -Advance diet to full liquids and then as tolerated -Continue to hold Plavix and Eliquis -Continue supportive care -Continue workup on right leg numbness per neuro, orthopedics and cardiology -Continue antibiotics -Continue PPI -Continue to monitor hemoglobin -Continue to monitor LFTs Physician Veneer Glue Spreader note has been reviewed by physician. Signing provider agrees with the documented findings, assessment, and plan of care. Objective - Vital Signs Vital signs: Vital Signs Temp 97.5 F L 03/11/22 12:00 Pulse 60 03/11/22 13:51 Resp 18 03/11/22 13:51 BP 111/64 03/11/22 12:00 Pulse Ox 99 03/11/22 12:00 Intake & Output 03/10/22 03/11/22 03/11/22 18:59 06:59 18:59 Intake Total 476 420 Output Total 800 1275 Balance -324 -1275 420 Weight 93.4 kg Intake: Oral 476 420 Output: Urine 800 1275 Other: Voiding Method Indwelling Catheter Indwelling Catheter Indwelling Catheter - Labs CBC & Chem 7: 03/11/22 06:24 03/11/22 06:24 Labs: Abnormal Lab Results - Last 24 Hours (Table) 03/10/22 03/10/22 03/11/22 Range/Units 16:48 19:06 05:40 RBC (4.30-5.90) m/uL Hgb (13.0-17.5) gm/dL Hct (39.0-53.0) % MCHC (31.0-37.0) g/dL RDW (11.5-15.5) % Neutrophils # (1.3-7.7) k/uL Lymphocytes # (1.0-4.8) k/uL Sodium (137-145) mmol/L BUN (9-20) mg/dL Glucose (74-99) mg/dL POC Glucose (mg/dL) 114 H 150 H 117 H (75-99) mg/dL Calcium (8.4-10.2) mg/dL AST (17-59) U/L ALT (4-49) U/L Total Protein (6.3-8.2) g/dL Albumin (3.5-5.0) g/dL 03/11/22 03/11/22 03/11/22 Range/Units 06:24 06:24 11:49 RBC 3.25 L (4.30-5.90) m/uL Hgb 8.9 L (13.0-17.5) gm/dL Hct 29.0 L (39.0-53.0) % MCHC 30.6 L (31.0-37.0) g/dL RDW 16.2 H (11.5-15.5) % Neutrophils # 8.1 H (1.3-7.7) k/uL Lymphocytes # 0.5 L (1.0-4.8) k/uL Sodium 131 L (137-145) mmol/L BUN 23 H (9-20) mg/dL Glucose 104 H (74-99) mg/dL POC Glucose (mg/dL) 158 H (75-99) mg/dL Calcium 7.9 L (8.4-10.2) mg/dL AST 162 H (17-59) U/L ALT 295 H (4-49) U/L Total Protein 5.2 L (6.3-8.2) g/dL Albumin 2.5 L (3.5-5.0) g/dL
[2022-03-11] MEDS: methylPREDNISolone SOD SUCCIN 500 MG in SODIUM CHLORIDE 0.9% 100 ML IVPB SCH (15:00)
--- NOTE | 2022-03-11 15:04 | P.PN ---
Subjective Progress Note Date: 03/11/22 Principal diagnosis: Spinal stenosis; degenerative disc disease Patient was seen at bedside this morning and seems fatigued. Patient says he is still not able to move his right leg on his own and he does have decreased sensation in the lower part of the right leg. Patient states she is also concerned because he has some groin pain on the right side for which he previously had a stent in the past. Patient also states he had a stent placed in the right side of his neck. Patient denies any changes from yesterday. Patient eyes chest pain, fever, shortness breath, nausea, vomiting, change in vision, loss of bowel/bladder control. Patient denies any saddle anesthesia Objective - Vital Signs Vital signs: Vital Signs Temp 97.5 F L 03/11/22 12:00 Pulse 60 03/11/22 13:51 Resp 18 03/11/22 13:51 BP 111/64 03/11/22 12:00 Pulse Ox 99 03/11/22 12:00 Intake & Output 03/10/22 03/11/22 03/11/22 18:59 06:59 18:59 Intake Total 476 970 Output Total 800 1275 2500 Balance -324 -1275 -1530 Weight 93.4 kg Intake: Oral 476 970 Output: Urine 800 1275 2500 Other: Voiding Method Indwelling Catheter Indwelling Catheter Indwelling Catheter - Exam Inspection is negative for any ecchymosis, erythema, nodules, open fractures. Sensation is equal, symmetric, bilaterally intact in the upper extremities. Patient does not have any sensation from the right knee distally. Patient does have minimal sensation to light touch proximally from the right knee. Patient does have full sensation throughout the left lower extremity. Patient has some mild diffuse tenderness to palpation throughout the lumbar spine. Patient has very limited range of motion in the right upper extremity due to previous stroke. Patient does have good range of motion in the left upper extremity. Patient has full range of motion in the left lower extremity. Patient is unable to move the right lower extremity at the knee or hip. Patient does have decreased strength in the right upper extremity and right lower extremity 1/5. Patient's strength 4/5 in left upper and left lower extremity. Radial pulses intact, 2+ bilaterally. Cap refill under 3 seconds in digits upper extremities. Negative Homans bilaterally; negative clonus bilaterally; negative Brendan's bilaterally - Labs CBC & Chem 7: 03/11/22 06:24 03/11/22 06:24 Labs: Abnormal Lab Results - Last 24 Hours (Table) 03/10/22 03/10/22 03/11/22 Range/Units 16:48 19:06 05:40 RBC (4.30-5.90) m/uL Hgb (13.0-17.5) gm/dL Hct (39.0-53.0) % MCHC (31.0-37.0) g/dL RDW (11.5-15.5) % Neutrophils # (1.3-7.7) k/uL Lymphocytes # (1.0-4.8) k/uL Sodium (137-145) mmol/L BUN (9-20) mg/dL Glucose (74-99) mg/dL POC Glucose (mg/dL) 114 H 150 H 117 H (75-99) mg/dL Calcium (8.4-10.2) mg/dL AST (17-59) U/L ALT (4-49) U/L Total Protein (6.3-8.2) g/dL Albumin (3.5-5.0) g/dL 03/11/22 03/11/22 03/11/22 Range/Units 06:24 06:24 11:49 RBC 3.25 L (4.30-5.90) m/uL Hgb 8.9 L (13.0-17.5) gm/dL Hct 29.0 L (39.0-53.0) % MCHC 30.6 L (31.0-37.0) g/dL RDW 16.2 H (11.5-15.5) % Neutrophils # 8.1 H (1.3-7.7) k/uL Lymphocytes # 0.5 L (1.0-4.8) k/uL Sodium 131 L (137-145) mmol/L BUN 23 H (9-20) mg/dL Glucose 104 H (74-99) mg/dL POC Glucose (mg/dL) 158 H (75-99) mg/dL Calcium 7.9 L (8.4-10.2) mg/dL AST 162 H (17-59) U/L ALT 295 H (4-49) U/L Total Protein 5.2 L (6.3-8.2) g/dL Albumin 2.5 L (3.5-5.0) g/dL Assessment and Plan Assessment: 1. Degenerative disc disease; multilevel spinal stenosis 2. Multiple medical comorbidities Plan: 1. Degenerative disc disease; multilevel spinal stenosis - patient stable at bedside this morning. Patient still unable to move right leg at this time. Due to the acute onset in nature of this issue and patient not complaining of any saddle anesthesia/perineal numbness/tingling and denying any radiculopathy in lower extremities lumbar etiology is less likely. At this time we do not recommend any emergent/urgent orthopedic surgical intervention. We'll continue with IV steroids at this time. MRI may be warranted if patient has any new changes in lumbar spine/lower extremities. We'll continue to follow patient while in hospital 2. Appreciate medical management 3. Pain management - Tylenol 4. GI prophylaxis - Protonix 5. DVT prophylaxis - heparin 6. PT/OT recommendations Time with Patient: Less than 30
[2022-03-11 16:22] LABS: Glucose,Whole Blood 155 mg/dL (75-99)
[2022-03-11] MEDS: HEPARIN SODIUM,PORCINE/PF 5,000 UNIT/0.5 ML SYRINGE SQ SCH ×2 (16:42→23:35)
--- NOTE | 2022-03-11 16:53 | P.PN ---
Subjective Progress Note Date: 03/11/22 03/11/2022: Patient was seen for a follow-up. Patient is laying comfortably in the bed. Continues to have weakness and numbness of the right leg. Still with back pain. No new concerns. 03/10/2022: Patient was initially seen by Dr. Boris Galarza. Please refer to his note for detail. Patient is a 81-year-old male with multiple medical problems. Patient has right leg weakness for 2-3 days. patient states that his right leg would not work since "the other day". Sometimes when he lays down, his whole right leg aches since the weakness started. No aching in the left leg on both arms. He does get low back pain across, which he rates 10/10. This pain shoots down in the right leg and it swells up, off and on. patient denies any recent falls. Denies any problem controlling with bowels or bladder. Although he has a retained Jean catheter at this time. MRI of the brain and lumbar spine was ordered, but cannot be performed because of pacemaker. Vascular surgery has been consulted. Objective - Vital Signs Vital signs: Vital Signs Temp 97.5 F L 03/11/22 12:00 Pulse 60 03/11/22 13:51 Resp 18 03/11/22 13:51 BP 111/64 03/11/22 12:00 Pulse Ox 99 03/11/22 12:00 Intake & Output 03/10/22 03/11/22 03/11/22 18:59 06:59 18:59 Intake Total 476 970 Output Total 800 1275 2500 Balance -324 -5519 -1530 Weight 93.4 kg Intake: Oral 476 970 Output: Urine 800 1275 2500 Other: Voiding Method Indwelling Catheter Indwelling Catheter Indwelling Catheter - Exam Patient is an elderly male, very pleasant, in no acute distress. Patient's mental status, speech and language functions are normal. Patient can name and repeat very well. Patient is slightly short of breath. Cranial nerves are normal. Today's examination was performed while patient was laying in the bed. On muscle strength testing the strength is normal in the upper limbs. His right deltoid is severely weak from arthritis/rotator cuff, which is chronic. 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 In the lower extremities (right/left) hip flexion 0/3-, knee extension 1/5, hip abduction 2/5-, hip adduction 2/5, ankle dorsiflexion 0/4+5-, toe extension 0/4+5-, inversion 0/5, Peronei 0/5 Deep tendon reflexes are almost absent except left biceps which is trace. Plantars are flat. Sensory to touch is severely decreased from below the groin all the way to the right foot. The sensation is normal in the left leg and both arms. Patient has moderate peripheral edema. Peripheral pulses are not clearly felt. - Labs CBC & Chem 7: 03/11/22 06:24 03/11/22 06:24 Labs: Abnormal Lab Results - Last 24 Hours (Table) 03/10/22 03/10/22 03/11/22 Range/Units 16:48 19:06 05:40 RBC (4.30-5.90) m/uL Hgb (13.0-17.5) gm/dL Hct (39.0-53.0) % MCHC (31.0-37.0) g/dL RDW (11.5-15.5) % Neutrophils # (1.3-7.7) k/uL Lymphocytes # (1.0-4.8) k/uL Sodium (137-145) mmol/L BUN (9-20) mg/dL Glucose (74-99) mg/dL POC Glucose (mg/dL) 114 H 150 H 117 H (75-99) mg/dL Calcium (8.4-10.2) mg/dL AST (17-59) U/L ALT (4-49) U/L Total Protein (6.3-8.2) g/dL Albumin (3.5-5.0) g/dL 03/11/22 03/11/22 03/11/22 Range/Units 06:24 06:24 11:49 RBC 3.25 L (4.30-5.90) m/uL Hgb 8.9 L (13.0-17.5) gm/dL Hct 29.0 L (39.0-53.0) % MCHC 30.6 L (31.0-37.0) g/dL RDW 16.2 H (11.5-15.5) % Neutrophils # 8.1 H (1.3-7.7) k/uL Lymphocytes # 0.5 L (1.0-4.8) k/uL Sodium 131 L (137-145) mmol/L BUN 23 H (9-20) mg/dL Glucose 104 H (74-99) mg/dL POC Glucose (mg/dL) 158 H (75-99) mg/dL Calcium 7.9 L (8.4-10.2) mg/dL AST 162 H (17-59) U/L ALT 295 H (4-49) U/L Total Protein 5.2 L (6.3-8.2) g/dL Albumin 2.5 L (3.5-5.0) g/dL 03/11/22 Range/Units 16:20 RBC (4.30-5.90) m/uL Hgb (13.0-17.5) gm/dL Hct (39.0-53.0) % MCHC (31.0-37.0) g/dL RDW (11.5-15.5) % Neutrophils # (1.3-7.7) k/uL Lymphocytes # (1.0-4.8) k/uL Sodium (137-145) mmol/L BUN (9-20) mg/dL Glucose (74-99) mg/dL POC Glucose (mg/dL) 155 H (75-99) mg/dL Calcium (8.4-10.2) mg/dL AST (17-59) U/L ALT (4-49) U/L Total Protein (6.3-8.2) g/dL Albumin (3.5-5.0) g/dL Assessment and Plan Assessment: Acute severe right leg weakness, differential diagnosis is between a polyradiculopathy from lumbar spinal stenosis versus lumbosacral plexopathy related to poorly controlled diabetes. Patient's weakness is predominantly in the right leg, but the left leg is also slightly weak. Hypotensive episodes during this admission Acute kidney insufficiency Elevated LFT's (AST/ALT) Acute on chronic anemia suspected GI bleed and on presentation and had hemoglobin of 6.1 History of stroke with residual weakness of right upper extremity. Left ICA stenosis s/p stenting on 02/03/2022 (by Dr. Rodriguez) History of GI bleed History of basal cell carcinoma and melanoma that was removed History of cardiology status post stent s/p AICD Diabetes mellitus type 2, poorly controlled with A1c 10.9 Hypertension and during this hospital visit has hypotensive episode History of prostate cancer status post the radiation and laser History of aortic valve replacement History of peripheral vascular disease with femoral popliteal PTCA with stent placement History of abdominal aortogram thrown off Prior history of smoking Plan: Patient started on Solu-Medrol 500 mg once daily for possible right lumbosacral plexopathy versus spinal stenosis. Patient probably has severe spinal stenosis with lumbosacral polyradiculopathy. Dr. Lundberg onboard and agree with checking CT myelogram of cervical thoracic and lumbar spine. I would also suggest lumbar puncture to evaluate for spinal fluid proteins to evaluate for any signs of inflammatory polyradiculopathy. Optimize control of diabetes to target A1c <7.0. At present patient's A1c is 10.9. Watch for blood sugars while being on high-dose steroids. IM following. CT head reported as Age related atrophic and chronic small vessel ischemic change without acute intracrial process seen at this time. Antiplatelets and anticoagulation (was on Plavix 75mg and eliquis 5mg bid -- home meds) on hold because of his anemia suspected GI bleed. On lipitor 40mg daily. Cardiology input appreciated. CT of the lumbar spine showed multilevel degenerative changes. These cause varying degrees of moderate to severe central and foraminal stenosis. Orthopedic surgery on board. TSH normal, vitamin B12 >2000, folate 10.4, ammonia <9. Q4 hour neuro checks PT and OT. General surgery team is on board for GI bleed Avoid hypotensive episodes and will defer management to primary team. Will defer the rest of medical management to the primary team. For DVT prophylaxis: Recommend SCD because of his anemia.
[2022-03-11 20:17] LABS: Glucose,Whole Blood 246 mg/dL (75-99)
[2022-03-11] MEDS: ATORVASTATIN 40 MG TAB PO SCH (20:48)
[2022-03-11] MEDS: INSULIN DETEMIR (LEVEMIR) 100 UNIT/ML SYR SQ SCH (20:50)
[2022-03-12] MEDS: ACETAMINOPHEN TAB 325 MG TAB PO PRN ×2 (04:31→21:43)
[2022-03-12 06:06] LABS: Glucose,Whole Blood 219 mg/dL (75-99)
[2022-03-12] MEDS: FUROSEMIDE 20 MG TAB PO SCH (06:37)
[2022-03-12] MEDS: MIDODRINE 5 MG TAB PO SCH ×2 (06:37→17:03)
[2022-03-12] MEDS: INSULIN ASPART (NovoLOG) 100 UNIT/ML VIAL SQ SCH ×4 (06:37→21:41)
[2022-03-12 07:47] LABS: ALT 221 U/L (4-49); AST 90 U/L (17-59); African American GFR (CKD) >90 (>60 ml/min/1.73 sqM); Albumin 2.5 g/dL (3.5-5.0); Alkaline Phosphatase 91 U/L (38-126); Anion Gap 11 mmol/L; Blood Urea Nitrogen 19 mg/dL (9-20); Calcium 7.7 mg/dL (8.4-10.2); Carbon Dioxide 20 mmol/L (22-30); Chloride 99 mmol/L (98-107); Glucose 196 mg/dL (74-99); Non-African American GFR(CKD) 85 (>60 ml/min/1.73 sqM); Potassium 4.8 mmol/L (3.5-5.1); Sodium 130 mmol/L (137-145); Total Bilirubin 0.5 mg/dL (0.2-1.3); Total Protein 5.3 g/dL (6.3-8.2)
[2022-03-12 08:06] LABS: Anisocytosis Slight; Basophils % (A) 0 %; Eosinophils % (A) 0 %; HCT 30.8 % (39.0-53.0); HGB 9.2 gm/dL (13.0-17.5); Hypochromasia Marked; Lymphocytes # (A) 0.4 k/uL (1.0-4.8); Lymphocytes % (A) 5 %; MCH 26.8 pg (25.0-35.0); MCV 89.3 fL (80.0-100.0); Mean Platelet Volume 8.9; Monocytes # (A) 0.2 k/uL (0-1.0); Monocytes % (A) 2 %; Neutrophils # (A) 7.6 k/uL (1.3-7.7); Neutrophils % (A) 93 %; Platelet Count 349 k/uL (150-450); Poikilocytosis Marked; RBC 3.45 m/uL (4.30-5.90); RDW 16.3 % (11.5-15.5); WBC 8.2 k/uL (3.8-10.6)
[2022-03-12] MEDS: HEPARIN SODIUM,PORCINE/PF 5,000 UNIT/0.5 ML SYRINGE SQ SCH ×2 (08:41→17:03)
[2022-03-12] MEDS: metroNIDAZOLE-NS PMX 500 MG in SALINE 1 100ML.BAG IVPB SCH ×2 (08:42→15:35)
[2022-03-12] MEDS: SPIRONOLACTONE 25 MG TAB PO SCH (08:43)
[2022-03-12] MEDS: EZETIMIBE 10 MG TAB PO SCH (08:43)
[2022-03-12] MEDS: AMIODARONE 200 MG TAB PO SCH (08:43)
[2022-03-12] MEDS: METOPROLOL SUCCINATE (ER) 100 MG TAB.ER.24H PO SCH ×2 (08:44→21:40)
[2022-03-12] MEDS: PANTOPRAZOLE 40 MG/10 ML VIAL IVP SCH ×2 (08:44→21:40)
[2022-03-12] MEDS: SODIUM CHLORIDE 0.9% 1,000 ML IV SCH (11:06)
[2022-03-12] MEDS: methylPREDNISolone SOD SUCCIN 500 MG in SODIUM CHLORIDE 0.9% 100 ML IVPB SCH (11:06)
[2022-03-12 12:13] LABS: Glucose,Whole Blood 345 mg/dL (75-99)
[2022-03-12] MEDS ORDERED: polyethylene glycoL 3350 17 GM POWD.PACK PO STA (12:37)
--- NOTE | 2022-03-12 14:38 | P.PN ---
Subjective Progress Note Date: 03/12/22 CHIEF COMPLAINT: GI bleed HISTORY OF PRESENT ILLNESS: Surgical service following in regards to patient's GI bleed. He did have black stools with anemia as well as being on oral iron supplement. Status post EGD revealing duodenitis, mild antral gastritis no evidence of any active upper bleeding. Patient denies any abdominal pain. He reports no bowel movements. He is having flatus. He did tolerate full liquid diet. He reports having a colonoscopy 2 weeks ago. Eliquis and plavix remain on hold. Patient continues to complain of right leg numbness and weakness. But does report some improvement in the numbness. Followed by orthopedics. Afebrile. WBC is 8.2 hemoglobin 8.9 up to 9.2 LFTs trending downwards PHYSICAL EXAM: VITAL SIGNS: Reviewed. GENERAL: Well-developed in no acute distress. HEENT: No sclera icterus. Extraocular movements grossly intact. Moist buccal mucosa. Head is atraumatic, normocephalic. ABDOMEN: Soft. Nondistended. Nontender. NEUROLOGIC: Alert and oriented. Cranial nerves II through XII grossly intact. ASSESSMENT: 1. GI bleed and anemia. No further bleeding. Hemoglobin improving. 2. Cholelithiasis with gallbladder polyp and elevated LFTs. LFTs trending down. Patient possibly passed a gallstone 3. Status post EGD revealing duodenitis, mild antral gastritis no evidence of any active upper bleeding PLAN: -Advance diet to regular -Continue to hold Plavix and Eliquis -Continue supportive care -Continue workup on right leg numbness per neuro, orthopedics -Continue antibiotics -Continue PPI -Continue to monitor hemoglobin -Continue to monitor LFTs Physician Candy Separator Hard note has been reviewed by physician. Signing provider agrees with the documented findings, assessment, and plan of care. Objective - Vital Signs Vital signs: Vital Signs Temp 98.2 F 03/12/22 12:00 Pulse 70 03/12/22 13:03 Resp 20 03/12/22 13:03 BP 105/58 03/12/22 12:00 Pulse Ox 95 03/12/22 12:00 Intake & Output 03/11/22 03/12/22 03/12/22 18:59 06:59 18:59 Intake Total 1470 596 Output Total 2500 1200 900 Balance -1030 -1200 -304 Weight 93.4 kg Intake: Oral 1470 596 Output: Urine 2500 1200 900 Other: Voiding Method Indwelling Catheter Indwelling Catheter Indwelling Catheter - Labs CBC & Chem 7: 03/12/22 06:34 03/12/22 06:34 Labs: Abnormal Lab Results - Last 24 Hours (Table) 03/11/22 03/11/22 03/12/22 Range/Units 16:20 20:16 06:04 RBC (4.30-5.90) m/uL Hgb (13.0-17.5) gm/dL Hct (39.0-53.0) % MCHC (31.0-37.0) g/dL RDW (11.5-15.5) % Lymphocytes # (1.0-4.8) k/uL Sodium (137-145) mmol/L Carbon Dioxide (22-30) mmol/L Glucose (74-99) mg/dL POC Glucose (mg/dL) 155 H 246 H 219 H (75-99) mg/dL Calcium (8.4-10.2) mg/dL AST (17-59) U/L ALT (4-49) U/L Total Protein (6.3-8.2) g/dL Albumin (3.5-5.0) g/dL 03/12/22 03/12/22 03/12/22 Range/Units 06:34 06:34 11:53 RBC 3.45 L (4.30-5.90) m/uL Hgb 9.2 L (13.0-17.5) gm/dL Hct 30.8 L (39.0-53.0) % MCHC 30.0 L (31.0-37.0) g/dL RDW 16.3 H (11.5-15.5) % Lymphocytes # 0.4 L (1.0-4.8) k/uL Sodium 130 L (137-145) mmol/L Carbon Dioxide 20 L (22-30) mmol/L Glucose 196 H (74-99) mg/dL POC Glucose (mg/dL) 345 H (75-99) mg/dL Calcium 7.7 L (8.4-10.2) mg/dL AST 90 H (17-59) U/L ALT 221 H (4-49) U/L Total Protein 5.3 L (6.3-8.2) g/dL Albumin 2.5 L (3.5-5.0) g/dL
[2022-03-12 16:33] LABS: Glucose,Whole Blood 382 mg/dL (75-99)
--- NOTE | 2022-03-12 16:54 | P.PN ---
Subjective Progress Note Date: 03/12/22 03/12/2022: Patient was seen for a follow-up. Patient is sitting in a bedside commode. He did let me examine. Patient's telemetry monitoring showing paced rhythm 100%. Patient states his low back pain is completely gone. His right leg pain has much improved, rating 2/10. Still having numbness of the right leg. No new concerns otherwise. 03/11/2022: Patient was seen for a follow-up. Patient is laying comfortably in the bed. Continues to have weakness and numbness of the right leg. Still with back pain. No new concerns. 03/10/2022: Patient was initially seen by Dr. Boris Galarza. Please refer to his note for detail. Patient is a 81-year-old male with multiple medical problems. Patient has right leg weakness for 2-3 days. patient states that his right leg would not work since "the other day". Sometimes when he lays down, his whole right leg aches since the weakness started. No aching in the left leg on both arms. He does get low back pain across, which he rates 10/10. This pain shoots down in the right leg and it swells up, off and on. patient denies any recent falls. Denies any problem controlling with bowels or bladder. Although he has a retained Jean catheter at this time. MRI of the brain and lumbar spine was ordered, but cannot be performed because of pacemaker. Vascular surgery has been consulted. Objective - Vital Signs Vital signs: Vital Signs Temp 98.0 F 03/12/22 16:00 Pulse 78 03/12/22 16:00 Resp 16 03/12/22 16:00 BP 115/68 03/12/22 16:00 Pulse Ox 92 L 03/12/22 16:00 Intake & Output 03/11/22 03/12/22 03/12/22 18:59 06:59 18:59 Intake Total 1470 596 Output Total 2500 1200 900 Balance -1030 -1200 -304 Weight 93.4 kg Intake: Oral 1470 596 Output: Urine 2500 1200 900 Other: Voiding Method Indwelling Catheter Indwelling Catheter Indwelling Catheter - Exam Patient is an elderly male, very pleasant, in no acute distress. Patient's mental status, speech and language functions are normal. Patient can name and repeat very well. Patient is slightly short of breath. Cranial nerves are normal. Today's examination was performed while patient was sitting on the bedside commode. On muscle strength testing the strength is normal in the upper limbs. His right deltoid is severely weak from arthritis/rotator cuff, which is chronic. 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 In the lower extremities (right/left) hip flexion 0/3-4, knee extension 2to3-/5, hip abduction 5-/5-, hip adduction 5-/5, ankle dorsiflexion 0/5, toe extension, inversion 0/5, Peronei 0/5 Deep tendon reflexes are almost absent except left biceps which is trace. Plantars are flat. Sensory to touch is severely decreased only in the right leg from upper thigh all the way to the right foot. The sensation is normal in the left leg and both arms. Patient has moderate peripheral edema. Peripheral pulses are not clearly felt. - Labs CBC & Chem 7: 03/12/22 06:34 03/12/22 06:34 Labs: Abnormal Lab Results - Last 24 Hours (Table) 03/11/22 03/12/22 03/12/22 Range/Units 20:16 06:04 06:34 RBC 3.45 L (4.30-5.90) m/uL Hgb 9.2 L (13.0-17.5) gm/dL Hct 30.8 L (39.0-53.0) % MCHC 30.0 L (31.0-37.0) g/dL RDW 16.3 H (11.5-15.5) % Lymphocytes # 0.4 L (1.0-4.8) k/uL Sodium (137-145) mmol/L Carbon Dioxide (22-30) mmol/L Glucose (74-99) mg/dL POC Glucose (mg/dL) 246 H 219 H (75-99) mg/dL Calcium (8.4-10.2) mg/dL AST (17-59) U/L ALT (4-49) U/L Total Protein (6.3-8.2) g/dL Albumin (3.5-5.0) g/dL 03/12/22 03/12/22 Range/Units 06:34 11:53 RBC (4.30-5.90) m/uL Hgb (13.0-17.5) gm/dL Hct (39.0-53.0) % MCHC (31.0-37.0) g/dL RDW (11.5-15.5) % Lymphocytes # (1.0-4.8) k/uL Sodium 130 L (137-145) mmol/L Carbon Dioxide 20 L (22-30) mmol/L Glucose 196 H (74-99) mg/dL POC Glucose (mg/dL) 345 H (75-99) mg/dL Calcium 7.7 L (8.4-10.2) mg/dL AST 90 H (17-59) U/L ALT 221 H (4-49) U/L Total Protein 5.3 L (6.3-8.2) g/dL Albumin 2.5 L (3.5-5.0) g/dL Assessment and Plan Assessment: Acute severe right leg weakness, differential diagnosis is between a jaime yradiculopathy from lumbar spinal stenosis versus lumbosacral plexopathy related to poorly controlled diabetes. Patient's weakness is predominantly in the right leg, but the left leg is also slightly weak. Patient's muscle strength is improved as compared to yesterday. Acute kidney insufficiency Elevated LFT's (AST/ALT) Acute on chronic anemia suspected GI bleed and on presentation and had hemoglobin of 6.1 History of stroke with residual weakness of right upper extremity. Left ICA stenosis s/p stenting on 02/03/2022 (by Dr. Rodriguez) History of GI bleed History of basal cell carcinoma and melanoma that was removed History of cardiology status post stent s/p AICD Diabetes mellitus type 2, poorly controlled with A1c 10.9 Hypertension and during this hospital visit has hypotensive episode History of prostate cancer status post the radiation and laser History of aortic valve replacement History of peripheral vascular disease with femoral popliteal PTCA with stent placement History of abdominal aortogram thrown off Prior history of smoking Plan: Patient started on Solu-Medrol 500 mg once daily since 03/11/2022, for possible right lumbosacral plexopathy versus spinal stenosis. Patient's strength has improved today as compared to yesterday. Continue Solu-Medrol at least for 3-5 days, then may need slow tapering down dose of prednisone, depending on the response. Patient probably has severe spinal stenosis with lumbosacral polyradiculopathy. Orthopedic surgery does not want any further workup, as patient does not have any radicular pains in the low back pain has resolved. No perineal numbness. Optimize control of diabetes to target A1c <7.0. At present patient's A1c is 10.9. Watch for blood sugars while being on high-dose steroids. IM following. CT head reported as Age related atrophic and chronic small vessel ischemic ch kaycee without acute intracrial process seen at this time. Repeat CT head rule out any interval change (CVA) from last CT head. Patient's EGD showed neuritis, mild antral gastritis, no upper GI bleed. Surgery wants to keep holding off antiplatelets and anticoagulants (was on Plavix 75mg and eliquis 5mg bid -- home meds). On lipitor 40mg daily. Suggest resuming anticoagulation as early as cleared by surgery. CT of the lumbar spine showed multilevel degenerative changes. These cause varying degrees of moderate to severe central and foraminal stenosis. Orthopedic surgery on board. TSH normal, vitamin B12 >2000, folate 10.4, ammonia <9. Q4 hour neuro checks PT and OT. General surgery team is on board for GI bleed Will defer the rest of medical management to the primary team. For DVT prophylaxis: Patient started on heparin subcu daily. Dr. Boris Galarza Will resume neurology service in the morning.
--- NOTE | 2022-03-12 19:01 | CT ---
EXAMINATION TYPE: CT brain wo con DATE OF EXAM: 03/12/2022 COMPARISON: 03/09/2022 HISTORY: ams TECHNIQUE: CT scan of the head without contrast CT DLP: 1198.4 mGycm Automated exposure control for dose reduction was used. FINDINGS: No acute intracranial hemorrhage midline shift or mass effect. Mendoza-white matter differentiation is preserved. There is advanced brain volume loss similar to prior study. There is mild chronic microvascular ische elisa changes without significant change. There are atherosclerotic calcifications in the intracranial ICAs. There is mild mucosal sinus disease particularly in the right maxillary sinus. No acute intraorbital, osseous or soft tissue abnormalities seen. IMPRESSION: NO HEMORRHAGE MIDLINE SHIFT OR MASS EFFECT
[2022-03-12 20:41] LABS: Glucose,Whole Blood 476 mg/dL (75-99)
[2022-03-12] MEDS: ATORVASTATIN 40 MG TAB PO SCH (21:40)
[2022-03-12] MEDS: INSULIN DETEMIR (LEVEMIR) 100 UNIT/ML SYR SQ SCH (21:41)
[2022-03-13] MEDS: metroNIDAZOLE-NS PMX 500 MG in SALINE 1 100ML.BAG IVPB SCH ×3 (00:39→17:26)
[2022-03-13] MEDS: HEPARIN SODIUM,PORCINE/PF 5,000 UNIT/0.5 ML SYRINGE SQ SCH ×4 (00:40→23:06)
[2022-03-13 05:42] LABS: Glucose,Whole Blood 242 mg/dL (75-99)
[2022-03-13] MEDS: MIDODRINE 5 MG TAB PO SCH ×2 (06:16→17:25)
[2022-03-13] MEDS: FUROSEMIDE 20 MG TAB PO SCH (06:16)
[2022-03-13] MEDS: INSULIN ASPART (NovoLOG) 100 UNIT/ML VIAL SQ SCH ×4 (06:16→21:40)
[2022-03-13] MEDS: AMIODARONE 200 MG TAB PO SCH (08:03)
[2022-03-13] MEDS: SPIRONOLACTONE 25 MG TAB PO SCH (08:06)
[2022-03-13] MEDS: EZETIMIBE 10 MG TAB PO SCH (08:06)
[2022-03-13] MEDS: METOPROLOL SUCCINATE (ER) 100 MG TAB.ER.24H PO SCH ×2 (08:07→22:06)
[2022-03-13] MEDS: PANTOPRAZOLE 40 MG/10 ML VIAL IVP SCH ×2 (08:07→22:06)
[2022-03-13 09:11] LABS: Albumin 2.7 g/dL (3.5-5.0); Calcium 7.7 mg/dL (8.4-10.2); Potassium 4.8 mmol/L (3.5-5.1); Total Bilirubin 0.4 mg/dL (0.2-1.3); Total Protein 5.6 g/dL (6.3-8.2)
[2022-03-13 09:37] LABS: Anisocytosis Slight; Basophils % (A) 0 %; Eosinophils % (A) 0 %; HGB 9.6 gm/dL (13.0-17.5); Hypochromasia Marked; Lymphocytes # (A) 0.5 k/uL (1.0-4.8); Lymphocytes % (A) 3 %; MCHC 29.2 g/dL (31.0-37.0); MCV 92.4 fL (80.0-100.0); Mean Platelet Volume 9.5; Monocytes # (A) 0.6 k/uL (0-1.0); Monocytes % (A) 4 %; Neutrophils # (A) 13.3 k/uL (1.3-7.7); Neutrophils % (A) 92 %; Platelet Count 417 k/uL (150-450); Poikilocytosis Marked; RBC 3.57 m/uL (4.30-5.90); RDW 16.1 % (11.5-15.5); WBC 14.5 k/uL (3.8-10.6)
[2022-03-13] MEDS: methylPREDNISolone SOD SUCCIN 500 MG in SODIUM CHLORIDE 0.9% 100 ML IVPB SCH (10:19)
[2022-03-13] MEDS: SODIUM CHLORIDE 0.9% 1,000 ML IV SCH (10:20)
--- NOTE | 2022-03-13 10:30 | P.PN ---
Subjective Progress Note Date: 03/11/22 Patient is a 81-year-old male with a known history of hypertension, hyperlipidemia, history of GI bleed, diabetes type 2, history of basal cell and melanoma, microcytic iron deficiency anemia and currently on iron supplementation at home, history of [place], coronary with history of stent placement, AICD placement, chronic CHF ejection fraction 30 to 35% and femoropopliteal PTCA with stent placement x2 and previous history of smoking presents to ER from [facility] due to low hemoglobin level. Patient's hemoglobin on admission was 6.1. Patient was seen in the ER on 02/14/2022 with a hemoglobin of 6.6 and was transferred to [facility] since there was no GI coverage at that time. Patient had normal hemoglobin level 11.2 on 02/04/2022. Patient had colonoscopy at [facility] and was discharged back to [facility]. Patient has been having dark stools and is also taking iron supplementation at home. No complaints of abdominal pain. No hematemesis. No nausea vomiting. Denies any complaints of shortness of breath. No fever no chills. No chest pain. No leg swelling. No cough or sputum production. Patient is not any blood thinners. On admission hemoglobin 6.1 WBC 15.7 and platelets 381 Sodium 126 potassium 4.3 chloride 93 bicarbonate 21 BUN 41 creatinine 1.20 and lactic acid 2.8 blood sugar is 238 and troponin 0.075 FOBT positive 03/07/2022 patient is status post EGD showed mild gastritis and duodenitis. Patient has been complaining of right upper quadrant abdominal pain yesterday. CT of abdomen pelvis was done which showed inflammatory changes around the gallbladder with cholelithiasis concerning for acute cholecystitis. Small bilateral pleural effusions. Patient was started on antibiotics empirically. Patient otherwise complains of generalized weakness. Currently on IV hydration. Laboratory data showed WBC 16.1 hemoglobin 8.8 and platelets 317 Sodium 129 potassium 4.1 chloride 96 BUN 47 creatinine 1.38 and calcium 7.7. General surgery is on board. Patient is being current PPI. 03/08/2022 Patient is currently resting in bed. Complains of shortness of breath. Denies any complaints of chest pain. No nausea or vomiting. Laboratory data showed BUN 45 and creatinine 1.36 increased AST 368 and ALT 316 alk phos 93 Leukocytosis trending down to 13.7 hemoglobin improved to 9.3 and platelets 354. Ultrasound of the liver, gallbladder showed suspected gallbladder polyp. Patient is being current antibiotics and PPI. 03/09/2022 Patient is complaining of right leg numbness and weakness today. Patient is also complaining of lower back pain. Patient does have chronic right upper extremity weakness. Denies any slurred speech. No facial droop. Patient was concerned about having stents placed in the leg in the past. Patient does have prior history of stroke. Otherwise denies any complaints of shortness of breath. No chest pain. No abdo ulisses pain. Laboratory data showed AST 618 ALT 528 and alk phos 100. WBC 9.9 hemoglobin 8.6 and platelets 291 03/10/2022 Patient is currently lying in the bed. Awake alert and oriented but feels very weak. Still complains ofright lower extremity weakness. right lower extremity weakness. Denied any complaints of chest pain. No complains of shortness of breath.laboratory data showed hemoglobin 8.8 platelets 303 sodium 129 potassium 4.8 and chloride 100. Patient is on clear liquid diet and will be advanced as tolerated. Lumbar spine CT showed severe spinal stenosis. Orthopedic surgery and neurology is on board. Patient is being continued on antibiotics the form of ceftriaxone and Flagyl. Blood pressure ismarginal and is also being continued onMidodrin. 03/11/2022 Patient is currently resting in the bed. Awake alert and oriented. Still having right lower extremity weakness. Patient was started on IV steroids. neurology and orthopedic surgery is on board. Patient has been afebrile. Otherwise hemoglobin level isstable at 8.9 today. Patient was seen by cardiology due to prior history of carotid stent. No further breast recommended at this time. Eliquis and Plavix on hold due to GI bleed. Other laboratory data showed WBC 9.4 hemoglobin 8.9 and platelets 350 Sodium 131 potassium 4.8 chloride 99 BUN 20. Creatinine 2.86 and calcium 7.9. Current medications reviewed. Objective - Vital Signs Vital signs: Vital Signs Temp 97.2 F L 03/11/22 07:53 Pulse 64 03/11/22 07:53 Resp 22 03/11/22 07:53 BP 135/58 03/11/22 07:53 Pulse Ox 97 03/11/22 07:53 Intake & Output 03/10/22 03/11/22 03/11/22 18:59 06:59 18:59 Intake Total 476 420 Output Total 800 1275 Balance -324 -1275 420 Intake: Oral 476 420 Output: Urine 800 1275 Other: Voiding Method Indwelling Catheter Indwelling Catheter - Exam PHYSICAL EXAMINATION: Patient is lying in the bed comfortably, no acute distress, awake alert and oriented.. HEENT: Normocephalic. Neck is supple. Pupils reactive. Nostrils clear. Oral cavity is moist. Neck reveals no JVD, carotid bruits, or thyromegaly. CHEST EXAMINATION: Trachea is central. Symmetrical expansion. Scattered crackles. No wheezing. Nonlabored breathing.. CARDIAC: Normal S1, S2 with no gallops. No murmurs ABDOMEN: Soft. Bowel sounds normal. No organomegaly. No abdominal bruits. Extremities: reveal no edema. No clubbing or cyanosis Neurologically awake, alert, oriented x3 Right upper extremity weakness. Right lower extremity paralysis and numbness. No slurred speech or facial droop. Skin: No rash or skin lesions. Psychiatric: Coperative. Nonsuicidal Musculoskeletal: No joint swelling or deformity. Normal range of motion. - Labs CBC & Chem 7: 03/13/22 08:38 03/13/22 08:38 Labs: Abnormal Lab Results - Last 24 Hours (Table) 03/10/22 03/10/22 03/10/22 Range/Units 11:38 16:48 19:06 RBC (4.30-5.90) m/uL Hgb (13.0-17.5) gm/dL Hct (39.0-53.0) % MCHC (31.0-37.0) g/dL RDW (11.5-15.5) % Neutrophils # (1.3-7.7) k/uL Lymphocytes # (1.0-4.8) k/uL Sodium (137-145) mmol/L BUN (9-20) mg/dL Glucose (74-99) mg/dL POC Glucose (mg/dL) 105 H 114 H 150 H (75-99) mg/dL Calcium (8.4-10.2) mg/dL AST (17-59) U/L ALT (4-49) U/L Total Protein (6.3-8.2) g/dL Albumin (3.5-5.0) g/dL 03/11/22 03/11/22 03/11/22 Range/Units 05:40 06:24 06:24 RBC 3.25 L (4.30-5.90) m/uL Hgb 8.9 L (13.0-17.5) gm/dL Hct 29.0 L (39.0-53.0) % MCHC 30.6 L (31.0-37.0) g/dL RDW 16.2 H (11.5-15.5) % Neutrophils # 8.1 H (1.3-7.7) k/uL Lymphocytes # 0.5 L (1.0-4.8) k/uL Sodium 131 L (137-145) mmol/L BUN 23 H (9-20) mg/dL Glucose 104 H (74-99) mg/dL POC Glucose (mg/dL) 117 H (75-99) mg/dL Calcium 7.9 L (8.4-10.2) mg/dL AST 162 H (17-59) U/L ALT 295 H (4-49) U/L Total Protein 5.2 L (6.3-8.2) g/dL Albumin 2.5 L (3.5-5.0) g/dL Assessment and Plan Assessment: Acute GI bleed with hemoglobin 6.1 on admission. Status post EGD showed mild gastritis and no active bleeding noted. Hemoglobin 9.2. Acute blood loss anemia Gallbladder wall thickening possible acute cholecystitis as per CT. ultrasound showed no evidence of acute cholecystitis. Right lower extremity weakness. CT lumbar spine showed spinal stenosis. Orthopedic surgery is on board. Chronic right upper extremity weakness due to previous stroke Lactic acidosis 2.8 on admission. improved Mildly elevated troponin level/troponin leak Chronic CHF with systolic dysfunction. ejection fraction 30 to 35%. status post AICD placement History of [place] Coronary disease with history of stent placement GERD Hyperlipidemia Diabetes type 2 uncontrolled with hyperglycemia Hypertension patient is currently hypotensive History of prostate cancer status post laser/radiation History of basal cell and melanoma removed History of aortic valve replacement Peripheral vascular disease with femoropopliteal PTCA with stent placement History of abdominal aortogram with runoff Prior history of smoking GI prophylaxis on PPI and DVT prophylaxis with SCDs Plan: Patient was seen by neurology due to right lower extremity weakness. CT lumbar spine was done which showed severe lumbar spinal stenosis.. Orthopedic surgery is on board. Patient will be continued on Protonix IV, changed to twice daily. Patient is s/p EGD by general surgery which showed mild gastritis. No active bleeding was noted. Continue with antibiotics in the form of ceftriaxone and Flagyl. Anticoagulation is on hold due to GI bleed. monitor blood pressure closely. Patient is currently hypotensive. Follow-up H&H closely. Hold blood pressure medications. Continue to follow closely. Prognosis is guarded at this time. Time with Patient: Greater than 30
[2022-03-13 11:26] LABS: Mixed Population RBC Present; Toxic Granulation Present
[2022-03-13 11:42] LABS: Glucose,Whole Blood 341 mg/dL (75-99)
--- NOTE | 2022-03-13 11:52 | P.PN ---
Subjective Progress Note Date: 03/13/22 I am seeing the patient for continuity of care. Patient was last seen by Dr. Franz on 03/12/2022. Patient was last seen by me on 03/09/2022. Please refer to Dr. Franz's notes for further details. Dr. Franz felt patient right leg weakness and felt he has slightly left leg weakness seems possibly due to lumbar polyradiculopathy vs lumbosacral plexopathy. Patient is on IV Solu-Medrol. Per the nurse he is about the same but currently was short of breath since he was being moved around. Patient feels he is about the same. Objective - Vital Signs Vital signs: Vital Signs Temp 96.3 F L 03/13/22 08:00 Pulse 66 03/13/22 08:00 Resp 20 03/13/22 08:00 BP 118/63 03/13/22 08:00 Pulse Ox 96 03/13/22 08:00 Intake & Output 03/12/22 03/13/22 03/13/22 18:59 06:59 18:59 Intake Total 956 640 Output Total 0 900 Balance -1094 -900 640 Weight 93.4 kg Intake: Oral 956 640 Output: Urine 2049 900 Other: Voiding Method Indwelling Catheter Indwelling Catheter Indwelling Catheter # Bowel Movements 1 0 - Exam GENERAL: The patient is lying in bed and is not in acute distress. NEUROLOGICAL: Higher mental function: The patient is awake, alert, oriented to self, place and time. Patient is following commands. No aphasia and no neglect. Cranial nerves: The pupils are round, equal and reactive to light. Visual f ields are full to confrontation throughout. Extraocular movement is intact no nystagmus is noted. Facial sensation is normal to touch throughout. The facial strength is normal throughout. Mild dysarthria is noted. Shoulder shrug is normal bilaterally. Motor: Gait is deferred because of his weakness. The strength is right forearm is 4+, right hand siebel developer is 5/5, minimally able to lift proximally of right upper (patient stated his right upper extremity weakness is old). Right lower extremity: proximally is 1-2. Otherwise lowers is 0/5 over right lower. Is able to lift upper and lower above gravity. Normal bulk. Sensation: Sensation is decreased to touch in right lower. Reflexes (right/left): 1+ throughout. Plantars are mute bilaterally. - Labs CBC & Chem 7: 03/13/22 08:38 03/13/22 08:38 Labs: Abnormal Lab Results - Last 24 Hours (Table) 03/12/22 03/12/22 03/12/22 Range/Units 11:53 16:13 20:37 WBC (3.8-10.6) k/uL RBC (4.30-5.90) m/uL Hgb (13.0-17.5) gm/dL Hct (39.0-53.0) % MCHC (31.0-37.0) g/dL RDW (11.5-15.5) % Neutrophils # (1.3-7.7) k/uL Lymphocytes # (1.0-4.8) k/uL Sodium (137-145) mmol/L Chloride (98-107) mmol/L Carbon Dioxide (22-30) mmol/L BUN (9-20) mg/dL Glucose (74-99) mg/dL POC Glucose (mg/dL) 345 H 382 H 476 H (75-99) mg/dL Calcium (8.4-10.2) mg/dL ALT (4-49) U/L Total Protein (6.3-8.2) g/dL Albumin (3.5-5.0) g/dL 03/13/22 03/13/22 03/13/22 Range/Units 05:34 08:38 08:38 WBC 14.5 H (3.8-10.6) k/uL RBC 3.57 L (4.30-5.90) m/uL Hgb 9.6 L (13.0-17.5) gm/dL Hct 33.0 L (39.0-53.0) % MCHC 29.2 L (31.0-37.0) g/dL RDW 16.1 H (11.5-15.5) % Neutrophils # 13.3 H (1.3-7.7) k/uL Lymphocytes # 0.5 L (1.0-4.8) k/uL Sodium 130 L (137-145) mmol/L Chloride 97 L (98-107) mmol/L Carbon Dioxide 21 L (22-30) mmol/L BUN 28 H (9-20) mg/dL Glucose 304 H (74-99) mg/dL POC Glucose (mg/dL) 242 H (75-99) mg/dL Calcium 7.7 L (8.4-10.2) mg/dL ALT 170 H (4-49) U/L Total Protein 5.6 L (6.3-8.2) g/dL Albumin 2.7 L (3.5-5.0) g/dL Assessment and Plan Assessment: Acute severe right leg weakness, differential diagnosis is between a polyradiculopathy from lumbar spinal stenosis versus lumbosacral plexopathy related to poorly controlled diabetes. Patient's weakness is predominantly in the right leg, but the left leg is also slightly weak. Hypotensive episodes during this admission Acute kidney insufficiency--resolved Elevated LFT's (AST/ALT)--improved Acute on chronic anemia suspected GI bleed and on presentation and had hemoglobin of 6.1 History of stroke with residual weakness of right upper extremity. Left ICA stenosis s/p stenting on 02/03/2022 (by Dr. Rodriguez) History of GI bleed History of basal cell carcinoma and melanoma that was removed History of cardiology status post stent s/p AICD Diabetes mellitus type 2, poorly controlled with A1c 10.9 Hypertension and during this hospital visit has hypotensive episode History of prostate cancer status post the radiation and laser History of aortic valve replacement History of peripheral vascular disease with femoral popliteal PTCA with stent placement History of abdominal aortogram thrown off Prior history of smoking Plan: Patient started on Solu-Medrol 500 mg once daily since 03/11/[address] Franz, for possible right lumbosacral plexopathy versus spinal stenosis. He recommends to continue Solu-Medrol at least for 3-5 days, then may need slow tapering down dose of prednisone, depending on the response. Patient probably has severe spinal stenosis with lumbosacral polyradiculopathy. Orthopedic surgery does not want any further workup, as patient does not have any radicular pains in the low back pain has resolved. No perineal numbness. Recommend consideration of EMG with NCS as outpatient of lowers. Optimize control of diabetes to target A1c <7.0. At present patient's A1c is 10.9. Watch for blood sugars while being on high-dose steroids. IM following. CT head reported as Age related atrophic and chronic small vessel ischemic change without acute intracrial process seen at this time. Repeat CT head rule out any interval change (CVA) from last CT head. Patient's EGD showed neuritis, mild antral gastritis, no upper GI bleed. Surgery wants to keep holding off antiplatelets and anticoagulants (was on Plavix 75mg and eliquis 5mg bid -- home meds). On lipitor 40mg daily. Suggest resuming anticoagulation as early as cleared by surgery. CT of the lumbar spine showed multilevel degenerative changes. These cause varying degrees of moderate to severe central and foraminal stenosis. Orthopedic surgery on board. TSH normal, vitamin B12 >2000, folate 10.4, ammonia <9. Q4 hour neuro checks PT and OT. General surgery team is on board for GI bleed Will defer the rest of medical management to the primary team. For DVT prophylaxis: Patient started on heparin subcu daily. Condition is very guarded. I spoke with the primary attending and they will consult palliative team. The plan is discussed with the patient, primary attending and his nurse. Boris Galarza M.D. Neuro-Hospitalist Time with Patient: Less than 30
--- NOTE | 2022-03-13 13:09 | US ---
EXAMINATION TYPE: US arterial LE multi level DATE OF EXAM: 03/09/2022 2:35 PM CLINICAL HISTORY: extremity painful, cool to touch, edematous. Very weak pulses very limited study. B ilateral legs ice cold. Doppler Waveforms: Right: No waveforms obtained unable to find pulses. Left: Very limited some pulses noted at DP. Ankle-Brachial Indices: Right: None Left: DP .81 Toe Brachial Indices: Right: None Left: None IMPRESSION: 1. No waveforms are obtained within the right lower extremity and also could not be obtained. Correla te clinically. History also reports painful cold edematous extremity. 2. Limited exam as discussed above. Abnormal left AMANUEL which is often associated with claudication and arterial atherosclerotic disease. 3. No toe brachial indices provided. AMANUEL on the right and bilateral pleural-parenchymal disease are not obtained. Correlate with arteriogr am as clinically warranted.
--- NOTE | 2022-03-13 14:06 | P.PN ---
Subjective Progress Note Date: 03/13/22 CHIEF COMPLAINT: GI bleed HISTORY OF PRESENT ILLNESS: Surgical service following in regards to patient's GI bleed. Status post EGD revealing duodenitis, mild antral gastritis no evidence of any active upper bleeding. Patient denies any abdominal pain. He does report having a black stool yesterday. Likely old blood. He denies any abdominal pain. Denies any nausea or vomiting. Afebrile. Hemoglobin is trending upwards from 9.2-9.6 WBC is 14.5. Patient has been on steroids. LFTs continued to trend downwards. He does report some improvement in the numbness in the right lower leg. He is currently tolerating a regular diet. Patient seen and examined with Dr. Lane PHYSICAL EXAM: VITAL SIGNS: Reviewed. GENERAL: Well-developed in no acute distress. HEENT: No sclera icterus. Extraocular movements grossly intact. Moist buccal mucosa. Head is atraumatic, normocephalic. ABDOMEN: Soft. Nondistended. Nontender. NEUROLOGIC: Alert and oriented. Cranial nerves II through XII grossly intact. ASSESSMENT: 1. GI bleed and anemia. Hemoglobin improving. 2. Cholelithiasis with gallbladder polyp and elevated LFTs. LFTs trending down. Patient possibly passed a gallstone 3. Status post EGD revealing duodenitis, mild antral gastritis no evidence of any active upper bleeding PLAN: -Continue Regular diet -Continue to hold Plavix and Eliquis -Continue supportive care -Continue workup on right leg numbness per neuro, orthopedics -Continue antibiotics -Continue PPI -Continue to monitor hemoglobin -Continue to monitor LFTs Physician Stacker And Sorter Operator note has been reviewed by physician. Signing provider agrees with the documented findings, assessment, and plan of care. Objective - Vital Signs Vital signs: Vital Signs Temp 96.3 F L 03/13/22 08:00 Pulse 66 03/13/22 08:00 Resp 20 03/13/22 08:00 BP 118/63 03/13/22 08:00 Pulse Ox 96 03/13/22 08:00 Intake & Output 03/12/22 03/13/22 03/13/22 18:59 06:59 18:59 Intake Total 956 640 Output Total 2049 900 Balance -1094 -900 640 Weight 93.4 kg Intake: Oral 956 640 Output: Urine 2049 900 Other: Voiding Method Indwelling Catheter Indwelling Catheter Indwelling Catheter # Bowel Movements 1 0 - Labs CBC & Chem 7: 03/13/22 08:38 03/13/22 08:38 Labs: Abnormal Lab Results - Last 24 Hours (Table) 03/12/22 03/12/22 03/12/22 Range/Units 11:53 16:13 20:37 WBC (3.8-10.6) k/uL RBC (4.30-5.90) m/uL Hgb (13.0-17.5) gm/dL Hct (39.0-53.0) % MCHC (31.0-37.0) g/dL RDW (11.5-15.5) % Neutrophils # (1.3-7.7) k/uL Lymphocytes # (1.0-4.8) k/uL Sodium (137-145) mmol/L Chloride (98-107) mmol/L Carbon Dioxide (22-30) mmol/L BUN (9-20) mg/dL Glucose (74-99) mg/dL POC Glucose (mg/dL) 345 H 382 H 476 H (75-99) mg/dL Calcium (8.4-10.2) mg/dL ALT (4-49) U/L Total Protein (6.3-8.2) g/dL Albumin (3.5-5.0) g/dL 03/13/22 03/13/22 03/13/22 Range/Units 05:34 08:38 08:38 WBC 14.5 H (3.8-10.6) k/uL RBC 3.57 L (4.30-5.90) m/uL Hgb 9.6 L (13.0-17.5) gm/dL Hct 33.0 L (39.0-53.0) % MCHC 29.2 L (31.0-37.0) g/dL RDW 16.1 H (11.5-15.5) % Neutrophils # 13.3 H (1.3-7.7) k/uL Lymphocytes # 0.5 L (1.0-4.8) k/uL Sodium 130 L (137-145) mmol/L Chloride 97 L (98-107) mmol/L Carbon Dioxide 21 L (22-30) mmol/L BUN 28 H (9-20) mg/dL Glucose 304 H (74-99) mg/dL POC Glucose (mg/dL) 242 H (75-99) mg/dL Calcium 7.7 L (8.4-10.2) mg/dL ALT 170 H (4-49) U/L Total Protein 5.6 L (6.3-8.2) g/dL Albumin 2.7 L (3.5-5.0) g/dL 03/13/22 Range/Units 11:40 WBC (3.8-10.6) k/uL RBC (4.30-5.90) m/uL Hgb (13.0-17.5) gm/dL Hct (39.0-53.0) % MCHC (31.0-37.0) g/dL RDW (11.5-15.5) % Neutrophils # (1.3-7.7) k/uL Lymphocytes # (1.0-4.8) k/uL Sodium (137-145) mmol/L Chloride (98-107) mmol/L Carbon Dioxide (22-30) mmol/L BUN (9-20) mg/dL Glucose (74-99) mg/dL POC Glucose (mg/dL) 341 H (75-99) mg/dL Calcium (8.4-10.2) mg/dL ALT (4-49) U/L Total Protein (6.3-8.2) g/dL Albumin (3.5-5.0) g/dL
--- NOTE | 2022-03-13 15:08 | P.PN ---
Subjective Progress Note Date: 03/12/22 Patient is a 81-year-old male with a known history of hypertension, hyperlipidemia, history of GI bleed, diabetes type 2, history of basal cell and melanoma, microcytic iron deficiency anemia and currently on iron supplementation at home, history of SC, coronary with history of stent placement, AICD placement, chronic CHF ejection fraction 30 to 35% and femoropopliteal PTCA with stent placement x2 and previous history of smoking presents to ER from [facility] due to low hemoglobin level. Patient's hemoglobin on admission was 6.1. Patient was seen in the ER on 02/14/2022 with a hemoglobin of 6.6 and was transferred to [facility] since there was no GI coverage at that time. Patient had normal hemoglobin level 11.2 on 02/04/2022. Patient had colonoscopy at [facility] and was discharged back to [facility]. Patient has been having dark stools and is also taking iron supplementation at home. No complaints of abdominal pain. No hematemesis. No nausea vomiting. Denies any complaints of shortness of breath. No fever no chills. No chest pain. No leg swelling. No cough or sputum production. Patient is not any blood thinners. On admission hemoglobin 6.1 WBC 15.7 and platelets 381 Sodium 126 potassium 4.3 chloride 93 bicarbonate 21 BUN 41 creatinine 1.20 and lactic acid 2.8 blood sugar is 238 and troponin 0.075 FOBT positive 03/07/2022 patient is status post EGD showed mild gastritis and duodenitis. Patient has been complaining of right upper quadrant abdominal pain yesterday. CT of abdomen pelvis was done which showed inflammatory changes around the gallbladder with cholelithiasis concerning for acute cholecystitis. Small bilateral pleural effusions. Patient was started on antibiotics empirically. Patient otherwise complains of generalized weakness. Currently on IV hydration. Laboratory data showed WBC 16.1 hemoglobin 8.8 and platelets 317 Sodium 129 potassium 4.1 chloride 96 BUN 47 creatinine 1.38 and calcium 7.7. General surgery is on board. Patient is being current PPI. 03/08/2022 Patient is currently resting in bed. Complains of shortness of breath. Denies any complaints of chest pain. No nausea or vomiting. Laboratory data showed BUN 45 and creatinine 1.36 increased AST 368 and ALT 316 alk phos 93 Leukocytosis trending down to 13.7 hemoglobin improved to 9.3 and platelets 354. Ultrasound of the liver, gallbladder showed suspected gallbladder polyp. Patient is being current antibiotics and PPI. 03/09/2022 Patient is complaining of right leg numbness and weakness today. Patient is also complaining of lower back pain. Patient does have chronic right upper extremity weakness. Denies any slurred speech. No facial droop. Patient was concerned about having stents placed in the leg in the past. Patient does have prior history of stroke. Otherwise denies any complaints of shortness of breath. No chest pain. No abdo ulisses pain. Laboratory data showed AST 618 ALT 528 and alk phos 100. WBC 9.9 hemoglobin 8.6 and platelets 291 03/10/2022 Patient is currently lying in the bed. Awake alert and oriented but feels very weak. Still complains ofright lower extremity weakness. right lower extremity weakness. Denied any complaints of chest pain. No complains of shortness of breath.laboratory data showed hemoglobin 8.8 platelets 303 sodium 129 potassium 4.8 and chloride 100. Patient is on clear liquid diet and will be advanced as tolerated. Lumbar spine CT showed severe spinal stenosis. Orthopedic surgery and neurology is on board. Patient is being continued on antibiotics the form of ceftriaxone and Flagyl. Blood pressure ismarginal and is also being continued onMidodrin. 03/11/2022 Patient is currently resting in the bed. Awake alert and oriented. Still having right lower extremity weakness. Patient was started on IV steroids. neurology and orthopedic surgery is on board. Patient has been afebrile. Otherwise hemoglobin level isstable at 8.9 today. Patient was seen by cardiology due to prior history of carotid stent. No further breast recommended at this time. Eliquis and Plavix on hold due to GI bleed. Other laboratory data showed WBC 9.4 hemoglobin 8.9 and platelets 350 Sodium 131 potassium 4.8 chloride 99 BUN 20. Creatinine 2.86 and calcium 7.9. 03/12/2012 Patient is currently lying in the bed. Awake alert and oriented 3. Right lower extremity weakness is still present. Patient is able to move sideways while in bed. No complaints of chest pain or shortness of breath. Oral diet advanced to regular. Hemoglobin is stable. Patient was seen by neurology and orthopedic surgery. Started on IV steroids. PTOT consulted. Otherwise patient is currently on Protonix. Patient has been afebrile. No nausea vomiting or abdominal pain or diarrhea. Patient is complaining of constipation and was ordered 1 dose of MiraLAX fever. Current medications reviewed. Objective - Vital Signs Vital signs: Vital Signs Temp 98.2 F 03/12/22 21:38 Pulse 70 03/12/22 21:38 Resp 18 03/12/22 21:38 BP 114/64 03/12/22 21:38 Pulse Ox 93 L 03/12/22 21:38 Intake & Output 03/12/22 03/12/22 03/13/22 06:59 18:59 06:59 Intake Total 956 Output Total 1200 2049 Balance -1200 -1094 Intake: Oral 956 Output: Urine 1200 2049 Other: Voiding Method Indwelling Catheter Indwelling Catheter # Bowel Movements 1 - Exam PHYSICAL EXAMINATION: Patient is lying in the bed comfortably, no acute distress, awake alert and oriented.. HEENT: Normocephalic. Neck is supple. Pupils reactive. Nostrils clear. Oral cavity is moist. Neck reveals no JVD, carotid bruits, or thyromegaly. CHEST EXAMINATION: Trachea is central. Symmetrical expansion. Scattered crackles. No wheezing. Nonlabored breathing.. CARDIAC: Normal S1, S2 with no gallops. No murmurs ABDOMEN: Soft. Bowel sounds normal. No organomegaly. No abdominal bruits. Extremities: reveal no edema. No clubbing or cyanosis Neurologically awake, alert, oriented x3 Right upper extremity weakness. Right lower extremity paralysis and numbness. No slurred speech or facial droop. Skin: No rash or skin lesions. Psychiatric: Coperative. Nonsuicidal Musculoskeletal: No joint swelling or deformity. Normal range of motion. - Labs CBC & Chem 7: 03/13/22 08:38 03/13/22 08:38 Labs: Abnormal Lab Results - Last 24 Hours (Table) 03/12/22 03/12/22 03/12/22 Range/Units 06:04 06:34 06:34 RBC 3.45 L (4.30-5.90) m/uL Hgb 9.2 L (13.0-17.5) gm/dL Hct 30.8 L (39.0-53.0) % MCHC 30.0 L (31.0-37.0) g/dL RDW 16.3 H (11.5-15.5) % Lymphocytes # 0.4 L (1.0-4.8) k/uL Sodium 130 L (137-145) mmol/L Carbon Dioxide 20 L (22-30) mmol/L Glucose 196 H (74-99) mg/dL POC Glucose (mg/dL) 219 H (75-99) mg/dL Calcium 7.7 L (8.4-10.2) mg/dL AST 90 H (17-59) U/L ALT 221 H (4-49) U/L Total Protein 5.3 L (6.3-8.2) g/dL Albumin 2.5 L (3.5-5.0) g/dL 03/12/22 03/12/22 03/12/22 Range/Units 11:53 16:13 20:37 RBC (4.30-5.90) m/uL Hgb (13.0-17.5) gm/dL Hct (39.0-53.0) % MCHC (31.0-37.0) g/dL RDW (11.5-15.5) % Lymphocytes # (1.0-4.8) k/uL Sodium (137-145) mmol/L Carbon Dioxide (22-30) mmol/L Glucose (74-99) mg/dL POC Glucose (mg/dL) 345 H 382 H 476 H (75-99) mg/dL Calcium (8.4-10.2) mg/dL AST (17-59) U/L ALT (4-49) U/L Total Protein (6.3-8.2) g/dL Albumin (3.5-5.0) g/dL Assessment and Plan Assessment: Acute GI bleed with hemoglobin 6.1 on admission. Status post EGD showed mild gastritis and no active bleeding noted. Hemoglobin 9.2. Acute blood loss anemia Gallbladder wall thickening possible acute cholecystitis as per CT. ultrasound showed no evidence of acute cholecystitis. Right lower extremity weakness. CT lumbar spine showed spinal stenosis. Orthopedic surgery is on board. Chronic right upper extremity weakness due to previous stroke Lactic acidosis 2.8 on admission. improved Mildly elevated troponin level/troponin leak Chronic CHF with systolic dysfunction. ejection fraction 30 to 35%. status post AICD placement History of SC Coronary disease with history of stent placement GERD Hyperlipidemia Diabetes type 2 uncontrolled with hyperglycemia Hypertension patient is currently hypotensive History of prostate cancer status post laser/radiation History of basal cell and melanoma removed History of aortic valve replacement Peripheral vascular disease with femoropopliteal PTCA with stent placement History of abdominal aortogram with runoff Prior history of smoking GI prophylaxis on PPI and DVT prophylaxis with SCDs Plan: Patient was seen by neurology due to right lower extremity weakness. CT lumbar spine was done which showed severe lumbar spinal stenosis.. Orthopedic surgery is on board. Patient was started on IV steroids. Patient will be continued on Protonix IV, changed to twice daily. Patient is s/p EGD by general surgery which showed mild gastritis. No active bleeding was noted. Continue with antibiotics in the form of ceftriaxone and Flagyl. Anticoagulation is on hold due to GI bleed. monitor blood pressure closely. Patient is currently hypotensive. Follow-up H&H closely. Hold blood pressure medications. Patient was started on oral diet and advanced to regular. PTOT consulted. Continue to follow closely. Prognosis is guarded at this time. Time with Patient: Greater than 30
[2022-03-13 16:06] LABS: Glucose,Whole Blood 464 mg/dL (75-99)
[2022-03-13] MEDS: ACETAMINOPHEN TAB 325 MG TAB PO PRN (18:45)
[2022-03-13 19:53] LABS: Glucose,Whole Blood 535 mg/dL (75-99)
[2022-03-13 19:53] LABS: Glucose,Whole Blood 518 mg/dL (75-99)
[2022-03-13] MEDS ORDERED: INSULIN REGULAR 100 UNIT in SODIUM CHLORIDE 0.9% 100 ML IV SCH (20:15)
[2022-03-13] MEDS ORDERED: INSULIN DETEMIR (LEVEMIR) 100 UNIT/ML SYR SQ SCH (21:00)
[2022-03-13] MEDS ORDERED: INSULIN REGULAR 100 UNIT/ML VIAL (IV) IV ONE (21:15)
[2022-03-13 21:30] LABS: Glucose,Whole Blood 472 mg/dL (75-99)
[2022-03-13] MEDS: INSULIN REGULAR 100 UNIT in SODIUM CHLORIDE 0.9% 100 ML IV SCH (21:31)
[2022-03-13] MEDS ORDERED: ALPRAZolam 0.25 MG TAB PO ONE (22:00)
[2022-03-13] MEDS: ATORVASTATIN 40 MG TAB PO SCH (22:06)
[2022-03-13 22:25] LABS: Glucose,Whole Blood 377 mg/dL (75-99)
[2022-03-13] MEDS ORDERED: FUROSEMIDE 10 MG/ML 4 ML VIAL IVP ONE (23:00)
[2022-03-13 23:20] LABS: Glucose,Whole Blood 299 mg/dL (75-99)
[2022-03-14 00:18] LABS: Glucose,Whole Blood 233 mg/dL (75-99)
[2022-03-14] MEDS: metroNIDAZOLE-NS PMX 500 MG in SALINE 1 100ML.BAG IVPB SCH ×2 (01:49→08:24)
[2022-03-14 02:10] LABS: Glucose,Whole Blood 149 mg/dL (75-99)
[2022-03-14 04:10] LABS: Glucose,Whole Blood 145 mg/dL (75-99)
[2022-03-14] MEDS: INSULIN ASPART (NovoLOG) 100 UNIT/ML VIAL SQ SCH ×4 (06:06→20:17)
[2022-03-14 06:16] LABS: Glucose,Whole Blood 144 mg/dL (75-99)
[2022-03-14] MEDS: FUROSEMIDE 20 MG TAB PO SCH (06:45)
[2022-03-14] MEDS: MIDODRINE 5 MG TAB PO SCH ×2 (06:45→16:56)
[2022-03-14] MEDS ORDERED: INSULIN ASPART (NovoLOG) 100 UNIT/ML VIAL SQ SCH ×2 (07:30)
[2022-03-14 08:04] LABS: Glucose,Whole Blood 206 mg/dL (75-99)
[2022-03-14] MEDS: HEPARIN SODIUM,PORCINE/PF 5,000 UNIT/0.5 ML SYRINGE SQ SCH ×3 (08:22→23:01)
[2022-03-14] MEDS: PANTOPRAZOLE 40 MG/10 ML VIAL IVP SCH ×2 (08:22→20:17)
[2022-03-14] MEDS: AMIODARONE 200 MG TAB PO SCH (08:24)
[2022-03-14] MEDS: SPIRONOLACTONE 25 MG TAB PO SCH (08:24)
[2022-03-14] MEDS: METOPROLOL SUCCINATE (ER) 100 MG TAB.ER.24H PO SCH ×2 (08:24→20:17)
[2022-03-14] MEDS: EZETIMIBE 10 MG TAB PO SCH (08:24)
[2022-03-14 09:51] LABS: Anisocytosis Slight; HCT 32.9 % (39.0-53.0); HGB 9.6 gm/dL (13.0-17.5); Hypochromasia Marked; MCH 26.3 pg (25.0-35.0); MCHC 29.4 g/dL (31.0-37.0); MCV 89.5 fL (80.0-100.0); Mean Platelet Volume 9.5; Platelet Count 500 k/uL (150-450); Poikilocytosis Marked; RBC 3.67 m/uL (4.30-5.90); RDW 16.1 % (11.5-15.5)
[2022-03-14 10:09] LABS: Calcium 7.6 mg/dL (8.4-10.2)
[2022-03-14 10:13] LABS: Glucose,Whole Blood 262 mg/dL (75-99)
[2022-03-14 10:23] LABS: Potassium 5.8 mmol/L (3.5-5.1)
[2022-03-14] MEDS: methylPREDNISolone SOD SUCCIN 500 MG in SODIUM CHLORIDE 0.9% 100 ML IVPB SCH (10:47)
[2022-03-14 11:17] LABS: Monocytes # (M) 0.53 k/uL (0-1.0); Neutrophils # (M) 16.45 k/uL (1.3-7.7); Neutrophils % (M) 94 %; Nucleated Red Blood Cells 1 /100 WBC (0-0); Total Cells Counted 200; WBC 17.5 k/uL (3.8-10.6)
[2022-03-14 11:57] LABS: Glucose,Whole Blood 228 mg/dL (75-99)
[2022-03-14] MEDS: FUROSEMIDE 10 MG/ML 2 ML VIAL IV SCH (12:15)
[2022-03-14] MEDS: SODIUM CHLORIDE 0.9% 1,000 ML IV SCH (12:16)
--- NOTE | 2022-03-14 14:03 | P.PN ---
Subjective Progress Note Date: 03/14/22 CHIEF COMPLAINT: GI bleed HISTORY OF PRESENT ILLNESS: Surgical service following in regards to patient's GI bleed. Status post EGD revealing duodenitis, mild antral gastritis no evidence of any active upper bleeding. Patient denies any abdominal pain. No further bowel movements reported. He is tolerating diet. Denies any nausea or vomiting. Afebrile. WBC 17.5 hemoglobin stable at 9.6 no LFTs for today Patient seen and examined with Dr. Lane PHYSICAL EXAM: VITAL SIGNS: Reviewed. GENERAL: Well-developed in no acute distress. HEENT: No sclera icterus. Extraocular movements grossly intact. Moist buccal mucosa. Head is atraumatic, normocephalic. ABDOMEN: Soft. Nondistended. Nontender. NEUROLOGIC: Alert and oriented. Cranial nerves II through XII grossly intact. ASSESSMENT: 1. GI bleed and anemia. No active bleeding. Hemoglobin stable. Sodium 129 potassium 5.8 creatinine 1.0 to 2. Cholelithiasis with gallbladder polyp and elevated LFTs. LFTs trending down. Patient possibly passed a gallstone 3. Status post EGD revealing duodenitis, mild antral gastritis no evidence of any active upper bleeding PLAN: -No surgical intervention planned -Continue Regular diet -Continue to hold Plavix and Eliquis -Continue supportive care -Continue workup on right leg numbness per neuro, orthopedics -Continue antibiotics -Continue PPI -Continue to monitor hemoglobin -Continue to monitor LFTs Physician Configuration Management Analyst note has been reviewed by physician. Signing provider agrees with the documented findings, assessment, and plan of care. Objective - Vital Signs Vital signs: Vital Signs Temp 97.4 F L 03/14/22 12:00 Pulse 68 03/14/22 12:00 Resp 20 03/14/22 12:00 BP 124/64 03/14/22 12:00 Pulse Ox 90 L 03/14/22 12:00 Intake & Output 03/13/22 03/14/22 03/14/22 18:59 06:59 18:59 Intake Total 1060 71.617 28.383 Output Total 650 1800 150 Balance 410 -1728.383 -121.617 Weight 93.4 kg 102.5 kg Intake: Intake, IV Titration 71.617 28.383 Amount Insulin Regular 100 unit 71.617 28.383 In Sodium Chloride 0.9% 100 ml @ Titrate IV .Q0M [facility] Rx#:[id number] Oral 1060 Output: Urine 650 1800 150 Other: Voiding Method Indwelling Catheter Indwelling Catheter Indwelling Catheter - Labs CBC & Chem 7: 03/14/22 08:38 03/14/22 08:38 Labs: Abnormal Lab Results - Last 24 Hours (Table) 03/13/22 03/13/22 03/13/22 Range/Units 16:02 19:17 19:19 WBC (3.8-10.6) k/uL RBC (4.30-5.90) m/uL Hgb (13.0-17.5) gm/dL Hct (39.0-53.0) % MCHC (31.0-37.0) g/dL RDW (11.5-15.5) % Plt Count (150-450) k/uL Neutrophils # (Manual) (1.3-7.7) k/uL Lymphocytes # (Manual) (1.0-4.8) k/uL Nucleated RBCs (0-0) /100 WBC Sodium (137-145) mmol/L Potassium (3.5-5.1) mmol/L Carbon Dioxide (22-30) mmol/L BUN (9-20) mg/dL Glucose (74-99) mg/dL POC Glucose (mg/dL) 464 H 535 H 518 H (75-99) mg/dL Calcium (8.4-10.2) mg/dL 03/13/22 03/13/22 03/13/22 Range/Units 21:28 22:13 23:09 WBC (3.8-10.6) k/uL RBC (4.30-5.90) m/uL Hgb (13.0-17.5) gm/dL Hct (39.0-53.0) % MCHC (31.0-37.0) g/dL RDW (11.5-15.5) % Plt Count (150-450) k/uL Neutrophils # (Manual) (1.3-7.7) k/uL Lymphocytes # (Manual) (1.0-4.8) k/uL Nucleated RBCs (0-0) /100 WBC Sodium (137-145) mmol/L Potassium (3.5-5.1) mmol/L Carbon Dioxide (22-30) mmol/L BUN (9-20) mg/dL Glucose (74-99) mg/dL POC Glucose (mg/dL) 472 H 377 H 299 H (75-99) mg/dL Calcium (8.4-10.2) mg/dL 03/14/22 03/14/22 03/14/22 Range/Units 00:06 01:58 04:07 WBC (3.8-10.6) k/uL RBC (4.30-5.90) m/uL Hgb (13.0-17.5) gm/dL Hct (39.0-53.0) % MCHC (31.0-37.0) g/dL RDW (11.5-15.5) % Plt Count (150-450) k/uL Neutrophils # (Manual) (1.3-7.7) k/uL Lymphocytes # (Manual) (1.0-4.8) k/uL Nucleated RBCs (0-0) /100 WBC Sodium (137-145) mmol/L Potassium (3.5-5.1) mmol/L Carbon Dioxide (22-30) mmol/L BUN (9-20) mg/dL Glucose (74-99) mg/dL POC Glucose (mg/dL) 233 H 149 H 145 H (75-99) mg/dL Calcium (8.4-10.2) mg/dL 03/14/22 03/14/22 03/14/22 Range/Units 05:54 08:01 08:38 WBC 17.5 H (3.8-10.6) k/uL RBC 3.67 L (4.30-5.90) m/uL Hgb 9.6 L (13.0-17.5) gm/dL Hct 32.9 L (39.0-53.0) % MCHC 29.4 L (31.0-37.0) g/dL RDW 16.1 H (11.5-15.5) % Plt Count 500 H (150-450) k/uL Neutrophils # (Manual) 16.45 H (1.3-7.7) k/uL Lymphocytes # (Manual) 0.70 L (1.0-4.8) k/uL Nucleated RBCs 1 H (0-0) /100 WBC Sodium (137-145) mmol/L Potassium (3.5-5.1) mmol/L Carbon Dioxide (22-30) mmol/L BUN (9-20) mg/dL Glucose (74-99) mg/dL POC Glucose (mg/dL) 144 H 206 H (75-99) mg/dL Calcium (8.4-10.2) mg/dL 03/14/22 03/14/22 03/14/22 Range/Units 08:38 10:11 11:56 WBC (3.8-10.6) k/uL RBC (4.30-5.90) m/uL Hgb (13.0-17.5) gm/dL Hct (39.0-53.0) % MCHC (31.0-37.0) g/dL RDW (11.5-15.5) % Plt Count (150-450) k/uL Neutrophils # (Manual) (1.3-7.7) k/uL Lymphocytes # (Manual) (1.0-4.8) k/uL Nucleated RBCs (0-0) /100 WBC Sodium 129 L (137-145) mmol/L Potassium 5.8 H (3.5-5.1) mmol/L Carbon Dioxide 14 L (22-30) mmol/L BUN 35 H (9-20) mg/dL Glucose 199 H (74-99) mg/dL POC Glucose (mg/dL) 262 H 228 H (75-99) mg/dL Calcium 7.6 L (8.4-10.2) mg/dL
[2022-03-14 14:10] LABS: Glucose,Whole Blood 282 mg/dL (75-99)
[2022-03-14] MEDS: INSULIN REGULAR 100 UNIT in SODIUM CHLORIDE 0.9% 100 ML IV SCH ×2 (14:13→23:14)
--- NOTE | 2022-03-14 15:28 | P.PN ---
Subjective Progress Note Date: 03/14/22 The patient is seen at beside and feels his right leg strength is improving. Otherwise he is about the same. Objective - Vital Signs Vital signs: Vital Signs Temp 97.4 F L 03/14/22 12:00 Pulse 68 03/14/22 12:00 Resp 20 03/14/22 12:00 BP 124/64 03/14/22 12:00 Pulse Ox 90 L 03/14/22 12:00 Intake & Output 03/13/22 03/14/22 03/14/22 18:59 06:59 18:59 Intake Total 1060 71.617 28.383 Output Total 650 1800 150 Balance 410 -1728.383 -121.617 Weight 93.4 kg 102.5 kg Intake: Intake, IV Titration 71.617 28.383 Amount Insulin Regular 100 unit 71.617 28.383 In Sodium Chloride 0.9% 100 ml @ Titrate IV .Q0M [facility] Rx#:[id number] Oral 1060 Output: Urine 650 1800 150 Other: Voiding Method Indwelling Catheter Indwelling Catheter Indwelling Catheter - Exam GENERAL: The patient is lying in bed and is not in acute distress. NEUROLOGICAL: Higher mental function: The patient is awake, alert, oriented to self, place and time. Patient is following commands. No aphasia and no neglect. Cranial nerves: The pupils are round, equal and reactive to light. Visual roman are full to confrontation throughout. Extraocular movement is intact no nystagmus is noted. Facial sensation is normal to touch throughout. The facial strength is normal throughout. Mild dysarthria is noted. Shoulder shrug is normal bilaterally. Motor: Gait is deferred because of his weakness. The strength is right forearm is 4+, right hand rn bone marrow transplant is 5/5, minimally able to lift proximally of right upper (patient stated his right upper extremity weakness is old). Right lower extremity: proximally is able to lift above gravity. Left is 4+. Normal bulk. Sensation: Sensation is decreased to touch in right lower. Reflexes (right/left): 1+ throughout. Plantars are mute bilaterally. ADDITIONAL WORK-UP NO LISTED ON PLAN: TSH normal, vitamin B12 >2000, folate 10.4, ammonia <9. CT head reported as Age related atrophic and chronic small vessel ischemic change without acute intracrial process seen at this time. Repeat CT head rule out any interval change (CVA) from last CT head. - Labs CBC & Chem 7: 03/14/22 08:38 03/14/22 08:38 Labs: Abnormal Lab Results - Last 24 Hours (Table) 03/13/22 03/13/22 03/13/22 Range/Units 16:02 19:17 19:19 WBC (3.8-10.6) k/uL RBC (4.30-5.90) m/uL Hgb (13.0-17.5) gm/dL Hct (39.0-53.0) % MCHC (31.0-37.0) g/dL RDW (11.5-15.5) % Plt Count (150-450) k/uL Neutrophils # (Manual) (1.3-7.7) k/uL Lymphocytes # (Manual) (1.0-4.8) k/uL Nucleated RBCs (0-0) /100 WBC Sodium (137-145) mmol/L Potassium (3.5-5.1) mmol/L Carbon Dioxide (22-30) mmol/L BUN (9-20) mg/dL Glucose (74-99) mg/dL POC Glucose (mg/dL) 464 H 535 H 518 H (75-99) mg/dL Calcium (8.4-10.2) mg/dL 03/13/22 03/13/22 03/13/22 Range/Units 21:28 22:13 23:09 WBC (3.8-10.6) k/uL RBC (4.30-5.90) m/uL Hgb (13.0-17.5) gm/dL Hct (39.0-53.0) % MCHC (31.0-37.0) g/dL RDW (11.5-15.5) % Plt Count (150-450) k/uL Neutrophils # (Manual) (1.3-7.7) k/uL Lymphocytes # (Manual) (1.0-4.8) k/uL Nucleated RBCs (0-0) /100 WBC Sodium (137-145) mmol/L Potassium (3.5-5.1) mmol/L Carbon Dioxide (22-30) mmol/L BUN (9-20) mg/dL Glucose (74-99) mg/dL POC Glucose (mg/dL) 472 H 377 H 299 H (75-99) mg/dL Calcium (8.4-10.2) mg/dL 03/14/22 03/14/22 03/14/22 Range/Units 00:06 01:58 04:07 WBC (3.8-10.6) k/uL RBC (4.30-5.90) m/uL Hgb (13.0-17.5) gm/dL Hct (39.0-53.0) % MCHC (31.0-37.0) g/dL RDW (11.5-15.5) % Plt Count (150-450) k/uL Neutrophils # (Manual) (1.3-7.7) k/uL Lymphocytes # (Manual) (1.0-4.8) k/uL Nucleated RBCs (0-0) /100 WBC Sodium (137-145) mmol/L Potassium (3.5-5.1) mmol/L Carbon Dioxide (22-30) mmol/L BUN (9-20) mg/dL Glucose (74-99) mg/dL POC Glucose (mg/dL) 233 H 149 H 145 H (75-99) mg/dL Calcium (8.4-10.2) mg/dL 03/14/22 03/14/22 03/14/22 Range/Units 05:54 08:01 08:38 WBC 17.5 H (3.8-10.6) k/uL RBC 3.67 L (4.30-5.90) m/uL Hgb 9.6 L (13.0-17.5) gm/dL Hct 32.9 L (39.0-53.0) % MCHC 29.4 L (31.0-37.0) g/dL RDW 16.1 H (11.5-15.5) % Plt Count 500 H (150-450) k/uL Neutrophils # (Manual) 16.45 H (1.3-7.7) k/uL Lymphocytes # (Manual) 0.70 L (1.0-4.8) k/uL Nucleated RBCs 1 H (0-0) /100 WBC Sodium (137-145) mmol/L Potassium (3.5-5.1) mmol/L Carbon Dioxide (22-30) mmol/L BUN (9-20) mg/dL Glucose (74-99) mg/dL POC Glucose (mg/dL) 144 H 206 H (75-99) mg/dL Calcium (8.4-10.2) mg/dL 03/14/22 03/14/22 03/14/22 Range/Units 08:38 10:11 11:56 WBC (3.8-10.6) k/uL RBC (4.30-5.90) m/uL Hgb (13.0-17.5) gm/dL Hct (39.0-53.0) % MCHC (31.0-37.0) g/dL RDW (11.5-15.5) % Plt Count (150-450) k/uL Neutrophils # (Manual) (1.3-7.7) k/uL Lymphocytes # (Manual) (1.0-4.8) k/uL Nucleated RBCs (0-0) /100 WBC Sodium 129 L (137-145) mmol/L Potassium 5.8 H (3.5-5.1) mmol/L Carbon Dioxide 14 L (22-30) mmol/L BUN 35 H (9-20) mg/dL Glucose 199 H (74-99) mg/dL POC Glucose (mg/dL) 262 H 228 H (75-99) mg/dL Calcium 7.6 L (8.4-10.2) mg/dL 03/14/22 Range/Units 14:09 WBC (3.8-10.6) k/uL RBC (4.30-5.90) m/uL Hgb (13.0-17.5) gm/dL Hct (39.0-53.0) % MCHC (31.0-37.0) g/dL RDW (11.5-15.5) % Plt Count (150-450) k/uL Neutrophils # (Manual) (1.3-7.7) k/uL Lymphocytes # (Manual) (1.0-4.8) k/uL Nucleated RBCs (0-0) /100 WBC Sodium (137-145) mmol/L Potassium (3.5-5.1) mmol/L Carbon Dioxide (22-30) mmol/L BUN (9-20) mg/dL Glucose (74-99) mg/dL POC Glucose (mg/dL) 282 H (75-99) mg/dL Calcium (8.4-10.2) mg/dL Assessment and Plan Assessment: * Acute severe right leg weakness, differential diagnosis is between a polyradiculopathy from lumbar spinal stenosis versus lumbosacral plexopathy related to poorly controlled diabetes. Patient's weakness is predominantly in the right leg, but the left leg is also slightly weak---there is improvement compared to initial presentation * Hypotensive episodes during this admission * Acute kidney insufficiency--resolved * Elevated LFT's (AST/ALT)--improved * Acute on chronic anemia suspected GI bleed and on presentation and had hemoglobin of 6.1 * History of stroke with residual weakness of right upper extremity. * Left ICA stenosis s/p stenting on 02/03/2022 (by Dr. Rodriguez) * History of GI bleed * History of basal cell carcinoma and melanoma that was removed * History of cardiology status post stent * s/p AICD * Diabetes mellitus type 2, poorly controlled with A1c 10.9 * Hypertension and during this hospital visit has hypotensive episode * History of prostate cancer status post the radiation and laser * History of aortic valve replacement * History of peripheral vascular disease with femoral popliteal PTCA with stent placement * History of abdominal aortogram thrown off * Prior history of smoking Plan: Patient started on Solu-Medrol 500 mg once daily since 03/11/[address] Franz, for possible right lumbosacral plexopathy versus spinal stenosis. I will stop IV steroids later today. CT of the lumbar spine showed multilevel degenerative changes. These cause varying degrees of moderate to severe central and foraminal stenosis. Orthopedic surgery on board. Patient probably has severe spinal stenosis with lumbosacral polyradiculopathy. Orthopedic surgery does not want any further workup, as patient does not have any radicular pains in the low back pain has resolved. No perineal numbness. Recommend consideration of EMG with NCS as outpatient of lowers. Optimize control of diabetes to target A1c <7.0. At present patient's A1c is 10.9. Watch for blood sugars while being on high-dose steroids. IM following. Patient's EGD showed neuritis, mild antral gastritis, no upper GI bleed. Surge ry wants to keep holding off antiplatelets and anticoagulants (was on Plavix 75mg and eliquis 5mg bid -- home meds). On lipitor 40mg daily. Suggest resuming anticoagulation as early as cleared by surgery. Q4 hour neuro checks PT and OT. General surgery team is on board for GI bleed Will defer the rest of medical management to the primary team. For DVT prophylaxis: Patient started on heparin subcu daily. Condition is very guarded. I spoke with the primary attending and they will consult palliative team. The plan is discussed with the patient and his nurse. Boris Galarza M.D. Neuro-Hospitalist Time with Patient: Less than 30
[2022-03-14 16:16] LABS: Glucose,Whole Blood 221 mg/dL (75-99)
[2022-03-14 18:08] LABS: Glucose,Whole Blood 234 mg/dL (75-99)
[2022-03-14 20:02] LABS: Glucose,Whole Blood 326 mg/dL (75-99)
[2022-03-14] MEDS: ATORVASTATIN 40 MG TAB PO SCH (20:17)
[2022-03-14] MEDS: ACETAMINOPHEN TAB 325 MG TAB PO PRN (21:34)
[2022-03-14 22:01] LABS: Glucose,Whole Blood 346 mg/dL (75-99)
[2022-03-14 23:00] LABS: Glucose,Whole Blood 309 mg/dL (75-99)
[2022-03-14 23:42] LABS: Glucose,Whole Blood 266 mg/dL (75-99)
[2022-03-15 01:56] LABS: Glucose,Whole Blood 154 mg/dL (75-99)
[2022-03-15 03:46] LABS: Glucose,Whole Blood 146 mg/dL (75-99)
[2022-03-15] MEDS: ACETAMINOPHEN TAB 325 MG TAB PO PRN ×2 (04:20→18:24)
[2022-03-15 06:00] LABS: Glucose,Whole Blood 219 mg/dL (75-99)
[2022-03-15] MEDS: INSULIN ASPART (NovoLOG) 100 UNIT/ML VIAL SQ SCH ×4 (06:53→21:06)
[2022-03-15] MEDS: MIDODRINE 5 MG TAB PO SCH ×2 (06:53→17:06)
[2022-03-15 08:22] LABS: Glucose,Whole Blood 274 mg/dL (75-99)
[2022-03-15] MEDS: AMIODARONE 200 MG TAB PO SCH (08:59)
[2022-03-15] MEDS: METOPROLOL SUCCINATE (ER) 100 MG TAB.ER.24H PO SCH ×2 (08:59→20:20)
[2022-03-15] MEDS: SPIRONOLACTONE 25 MG TAB PO SCH (08:59)
[2022-03-15] MEDS: FUROSEMIDE 10 MG/ML 2 ML VIAL IV SCH (08:59)
[2022-03-15] MEDS: EZETIMIBE 10 MG TAB PO SCH (08:59)
[2022-03-15] MEDS: ALPRAZolam 0.25 MG TAB PO PRN ×2 (08:59→21:06)
[2022-03-15] MEDS: HEPARIN SODIUM,PORCINE/PF 5,000 UNIT/0.5 ML SYRINGE SQ SCH ×3 (08:59→23:21)
[2022-03-15] MEDS: PANTOPRAZOLE 40 MG/10 ML VIAL IVP SCH ×2 (09:00→20:20)
--- NOTE | 2022-03-15 09:40 | P.PN ---
Subjective Progress Note Date: 03/13/22 Patient is a 81-year-old male with a known history of hypertension, hyperlipidemia, history of GI bleed, diabetes type 2, history of basal cell and melanoma, microcytic iron deficiency anemia and currently on iron supplementation at home, history of [place], coronary with history of stent placement, AICD placement, chronic CHF ejection fraction 30 to 35% and femoropopliteal PTCA with stent placement x2 and previous history of smoking presents to ER from [facility] due to low hemoglobin level. Patient's hemoglobin on admission was 6.1. Patient was seen in the ER on 02/14/2022 with a hemoglobin of 6.6 and was transferred to [facility] since there was no GI coverage at that time. Patient had normal hemoglobin level 11.2 on 02/04/2022. Patient had colonoscopy at [facility] and was discharged back to [facility]. Patient has been having dark stools and is also taking iron supplementation at home. No complaints of abdominal pain. No hematemesis. No nausea vomiting. Denies any complaints of shortness of breath. No fever no chills. No chest pain. No leg swelling. No cough or sputum production. Patient is not any blood thinners. On admission hemoglobin 6.1 WBC 15.7 and platelets 381 Sodium 126 potassium 4.3 chloride 93 bicarbonate 21 BUN 41 creatinine 1.20 and lactic acid 2.8 blood sugar is 238 and troponin 0.075 FOBT positive 03/07/2022 patient is status post EGD showed mild gastritis and duodenitis. Patient has been complaining of right upper quadrant abdominal pain yesterday. CT of abdomen pelvis was done which showed inflammatory changes around the gallbladder with cholelithiasis concerning for acute cholecystitis. Small bilateral pleural effusions. Patient was started on antibiotics empirically. Patient otherwise complains of generalized weakness. Currently on IV hydration. Laboratory data showed WBC 16.1 hemoglobin 8.8 and platelets 317 Sodium 129 potassium 4.1 chloride 96 BUN 47 creatinine 1.38 and calcium 7.7. General surgery is on board. Patient is being current PPI. 03/08/2022 Patient is currently resting in bed. Complains of shortness of breath. Denies any complaints of chest pain. No nausea or vomiting. Laboratory data showed BUN 45 and creatinine 1.36 increased AST 368 and ALT 316 alk phos 93 Leukocytosis trending down to 13.7 hemoglobin improved to 9.3 and platelets 354. Ultrasound of the liver, gallbladder showed suspected gallbladder polyp. Patient is being current antibiotics and PPI. 03/09/2022 Patient is complaining of right leg numbness and weakness today. Patient is also complaining of lower back pain. Patient does have chronic right upper extremity weakness. Denies any slurred speech. No facial droop. Patient was concerned about having stents placed in the leg in the past. Patient does have prior history of stroke. Otherwise denies any complaints of shortness of breath. No chest pain. No abdo ulisses pain. Laboratory data showed AST 618 ALT 528 and alk phos 100. WBC 9.9 hemoglobin 8.6 and platelets 291 03/10/2022 Patient is currently lying in the bed. Awake alert and oriented but feels very weak. Still complains ofright lower extremity weakness. right lower extremity weakness. Denied any complaints of chest pain. No complains of shortness of breath.laboratory data showed hemoglobin 8.8 platelets 303 sodium 129 potassium 4.8 and chloride 100. Patient is on clear liquid diet and will be advanced as tolerated. Lumbar spine CT showed severe spinal stenosis. Orthopedic surgery and neurology is on board. Patient is being continued on antibiotics the form of ceftriaxone and Flagyl. Blood pressure ismarginal and is also being continued onMidodrin. 03/11/2022 Patient is currently resting in the bed. Awake alert and oriented. Still having right lower extremity weakness. Patient was started on IV steroids. neurology and orthopedic surgery is on board. Patient has been afebrile. Otherwise hemoglobin level isstable at 8.9 today. Patient was seen by cardiology due to prior history of carotid stent. No further breast recommended at this time. Eliquis and Plavix on hold due to GI bleed. Other laboratory data showed WBC 9.4 hemoglobin 8.9 and platelets 350 Sodium 131 potassium 4.8 chloride 99 BUN 20. Creatinine 2.86 and calcium 7.9. 03/12/2012 Patient is currently lying in the bed. Awake alert and oriented 3. Right lower extremity weakness is still present. Patient is able to move sideways while in bed. No complaints of chest pain or shortness of breath. Oral diet advanced to regular. Hemoglobin is stable. Patient was seen by neurology and orthopedic surgery. Started on IV steroids. PTOT consulted. Otherwise patient is currently on Protonix. Patient has been afebrile. No nausea vomiting or abdominal pain or diarrhea. Patient is complaining of constipation and was ordered 1 dose of MiraLAX fever. 03/13/2022. Patient is currently resting in the bed. Awake alert and oriented times. Still having the right lower extremity weakness with slight improvement. Patient is on IV steroids. On his blood sugar is elevated and patient was started on insulin drip. No complains of chest pain or shortness breath. Patient was started on oral diet and advanced. Due to have a bowel movement yesterday. No fever no chills. No cough or sputum production. Neurology and orthopedic surgery is on board due to right lower extremity weakness and low back pain. Laboratory data reviewed. Current medications reviewed. Objective - Vital Signs Vital signs: Vital Signs Temp 97.5 F L 03/13/22 12:00 Pulse 66 03/13/22 14:00 Resp 22 03/13/22 14:00 BP 111/53 03/13/22 12:00 Pulse Ox 98 03/13/22 12:00 Intake & Output 03/12/22 03/13/22 03/13/22 18:59 06:59 18:59 Intake Total 956 640 Output Total 2050 900 Balance -1094 -900 640 Weight 93.4 kg Intake: Oral 956 640 Output: Urine 0 900 Other: Voiding Method Indwelling Catheter Indwelling Catheter Indwelling Catheter # Bowel Movements 1 0 - Exam PHYSICAL EXAMINATION: Patient is lying in the bed comfortably, no acute distress, awake alert and oriented.. HEENT: Normocephalic. Neck is supple. Pupils reactive. Nostrils clear. Oral cavity is moist. Neck reveals no JVD, carotid bruits, or thyromegaly. CHEST EXAMINATION: Trachea is central. Symmetrical expansion. Scattered crackles. No wheezing. Nonlabored breathing.. CARDIAC: Normal S1, S2 with no gallops. No murmurs ABDOMEN: Soft. Bowel sounds normal. No organomegaly. No abdominal bruits. Extremities: reveal no edema. No clubbing or cyanosis Neurologically awake, alert, oriented x3 Right upper extremity weakness. Right lower extremity paralysis and numbness. No slurred speech or facial droop. Skin: No rash or skin lesions. Psychiatric: Coperative. Nonsuicidal Musculoskeletal: No joint swelling or deformity. Normal range of motion. - Labs CBC & Chem 7: 03/14/22 08:38 03/14/22 08:38 Labs: Abnormal Lab Results - Last 24 Hours (Table) 03/12/22 03/12/22 03/13/22 Range/Units 16:13 20:37 05:34 WBC (3.8-10.6) k/uL RBC (4.30-5.90) m/uL Hgb (13.0-17.5) gm/dL Hct (39.0-53.0) % MCHC (31.0-37.0) g/dL RDW (11.5-15.5) % Neutrophils # (1.3-7.7) k/uL Lymphocytes # (1.0-4.8) k/uL Sodium (137-145) mmol/L Chloride (98-107) mmol/L Carbon Dioxide (22-30) mmol/L BUN (9-20) mg/dL Glucose (74-99) mg/dL POC Glucose (mg/dL) 382 H 476 H 242 H (75-99) mg/dL Calcium (8.4-10.2) mg/dL ALT (4-49) U/L Total Protein (6.3-8.2) g/dL Albumin (3.5-5.0) g/dL 03/13/22 03/13/22 03/13/22 Range/Units 08:38 08:38 11:40 WBC 14.5 H (3.8-10.6) k/uL RBC 3.57 L (4.30-5.90) m/uL Hgb 9.6 L (13.0-17.5) gm/dL Hct 33.0 L (39.0-53.0) % MCHC 29.2 L (31.0-37.0) g/dL RDW 16.1 H (11.5-15.5) % Neutrophils # 13.3 H (1.3-7.7) k/uL Lymphocytes # 0.5 L (1.0-4.8) k/uL Sodium 130 L (137-145) mmol/L Chloride 97 L (98-107) mmol/L Carbon Dioxide 21 L (22-30) mmol/L BUN 28 H (9-20) mg/dL Glucose 304 H (74-99) mg/dL POC Glucose (mg/dL) 341 H (75-99) mg/dL Calcium 7.7 L (8.4-10.2) mg/dL ALT 170 H (4-49) U/L Total Protein 5.6 L (6.3-8.2) g/dL Albumin 2.7 L (3.5-5.0) g/dL Assessment and Plan Assessment: Acute GI bleed with hemoglobin 6.1 on admission. Status post EGD showed mild gastritis and no active bleeding noted. Hemoglobin 9.2. Acute blood loss anemia Gallbladder wall thickening possible acute cholecystitis as per CT. ultrasound showed no evidence of acute cholecystitis. Right lower extremity weakness. CT lumbar spine showed spinal stenosis. Orthopedic surgery is on board. Chronic right upper extremity weakness due to previous stroke Lactic acidosis 2.8 on admission. improved Mildly elevated troponin level/troponin leak Chronic CHF with systolic dysfunction. ejection fraction 30 to 35%. status post AICD placement History of ID Coronary disease with history of stent placement GERD Hyperlipidemia Diabetes type 2 uncontrolled with hyperglycemia Hypertension patient is currently hypotensive History of prostate cancer status post laser/radiation History of basal cell and melanoma removed History of aortic valve replacement Peripheral vascular disease with femoropopliteal PTCA with stent placement History of abdominal aortogram with runoff Prior history of smoking GI prophylaxis on PPI and DVT prophylaxis with SCDs Plan: Patient was seen by neurology due to right lower extremity weakness. CT lumbar spine was done which showed severe lumbar spinal stenosis.. Orthopedic surgery is on board. Patient was started on IV steroids. Patient will be continued on Protonix IV, changed to twice daily. Patient is s/p EGD by general surgery which showed mild gastritis. No active bleeding was noted. Continue with antibiotics in the form of ceftriaxone and Flagyl. Anticoagulation is on hold due to GI bleed. monitor blood pressure closely. Patient is currently hypotensive. Follow-up H&H closely. Hold blood pressure medications. Patient was started on oral diet and advanced to regular. PTOT consulted. Continue to follow closely. Prognosis is guarded at this time. Time with Patient: Greater than 30
--- NOTE | 2022-03-15 09:42 | P.PN ---
Subjective Progress Note Date: 03/14/22 Patient is a 81-year-old male with a known history of hypertension, hyperlipidemia, history of GI bleed, diabetes type 2, history of basal cell and melanoma, microcytic iron deficiency anemia and currently on iron supplementation at home, history of [place], coronary with history of stent placement, AICD placement, chronic CHF ejection fraction 30 to 35% and femoropopliteal PTCA with stent placement x2 and previous history of smoking presents to ER from [facility] due to low hemoglobin level. Patient's hemoglobin on admission was 6.1. Patient was seen in the ER on 02/14/2022 with a hemoglobin of 6.6 and was transferred to [facility] since there was no GI coverage at that time. Patient had normal hemoglobin level 11.2 on 02/04/2022. Patient had colonoscopy at [facility] and was discharged back to [facility]. Patient has been having dark stools and is also taking iron supplementation at home. No complaints of abdominal pain. No hematemesis. No nausea vomiting. Denies any complaints of shortness of breath. No fever no chills. No chest pain. No leg swelling. No cough or sputum production. Patient is not any blood thinners. On admission hemoglobin 6.1 WBC 15.7 and platelets 381 Sodium 126 potassium 4.3 chloride 93 bicarbonate 21 BUN 41 creatinine 1.20 and lactic acid 2.8 blood sugar is 238 and troponin 0.075 FOBT positive 03/07/2022 patient is status post EGD showed mild gastritis and duodenitis. Patient has been complaining of right upper quadrant abdominal pain yesterday. CT of abdomen pelvis was done which showed inflammatory changes around the gallbladder with cholelithiasis concerning for acute cholecystitis. Small bilateral pleural effusions. Patient was started on antibiotics empirically. Patient otherwise complains of generalized weakness. Currently on IV hydration. Laboratory data showed WBC 16.1 hemoglobin 8.8 and platelets 317 Sodium 129 potassium 4.1 chloride 96 BUN 47 creatinine 1.38 and calcium 7.7. General surgery is on board. Patient is being current PPI. 03/08/2022 Patient is currently resting in bed. Complains of shortness of breath. Denies any complaints of chest pain. No nausea or vomiting. Laboratory data showed BUN 45 and creatinine 1.36 increased AST 368 and ALT 316 alk phos 93 Leukocytosis trending down to 13.7 hemoglobin improved to 9.3 and platelets 354. Ultrasound of the liver, gallbladder showed suspected gallbladder polyp. Patient is being current antibiotics and PPI. 03/09/2022 Patient is complaining of right leg numbness and weakness today. Patient is also complaining of lower back pain. Patient does have chronic right upper extremity weakness. Denies any slurred speech. No facial droop. Patient was concerned about having stents placed in the leg in the past. Patient does have prior history of stroke. Otherwise denies any complaints of shortness of breath. No chest pain. No abdo ulisses pain. Laboratory data showed AST 618 ALT 528 and alk phos 100. WBC 9.9 hemoglobin 8.6 and platelets 291 03/10/2022 Patient is currently lying in the bed. Awake alert and oriented but feels very weak. Still complains ofright lower extremity weakness. right lower extremity weakness. Denied any complaints of chest pain. No complains of shortness of breath.laboratory data showed hemoglobin 8.8 platelets 303 sodium 129 potassium 4.8 and chloride 100. Patient is on clear liquid diet and will be advanced as tolerated. Lumbar spine CT showed severe spinal stenosis. Orthopedic surgery and neurology is on board. Patient is being continued on antibiotics the form of ceftriaxone and Flagyl. Blood pressure ismarginal and is also being continued onMidodrin. 03/11/2022 Patient is currently resting in the bed. Awake alert and oriented. Still having right lower extremity weakness. Patient was started on IV steroids. neurology and orthopedic surgery is on board. Patient has been afebrile. Otherwise hemoglobin level isstable at 8.9 today. Patient was seen by cardiology due to prior history of carotid stent. No further breast recommended at this time. Eliquis and Plavix on hold due to GI bleed. Other laboratory data showed WBC 9.4 hemoglobin 8.9 and platelets 350 Sodium 131 potassium 4.8 chloride 99 BUN 20. Creatinine 2.86 and calcium 7.9. 03/12/2012 Patient is currently lying in the bed. Awake alert and oriented 3. Right lower extremity weakness is still present. Patient is able to move sideways while in bed. No complaints of chest pain or shortness of breath. Oral diet advanced to regular. Hemoglobin is stable. Patient was seen by neurology and orthopedic surgery. Started on IV steroids. PTOT consulted. Otherwise patient is currently on Protonix. Patient has been afebrile. No nausea vomiting or abdominal pain or diarrhea. Patient is complaining of constipation and was ordered 1 dose of MiraLAX fever. 03/13/2022. Patient is currently resting in the bed. Awake alert and oriented times. Still having the right lower extremity weakness with slight improvement. Patient is on IV steroids. On his blood sugar is elevated and patient was started on insulin drip. No complains of chest pain or shortness breath. Patient was started on oral diet and advanced. Due to have a bowel movement yesterday. No fever no chills. No cough or sputum production. Neurology and orthopedic surgery is on board due to right lower extremity weakness and low back pain. Laboratory data reviewed. 03/14/2022 Patient was admitted to hospital due to acute GI bleed status post EGD showed mild gastritis. Hemoglobin is stable. Patient also developed right lower extremity weakness and low back pain. CT lumbar spine showed severe spinal stenosis. Patient was started on IV steroids. Otherwise patient denied any complaints of chest pain or shortness of breath. No fever no chills. Minimal oral intake. No cough or sputum production. Patient was found to have swelling of the bilateral lower extremity which is worsening. Change Lasix to IV and follow-up renal function. PTOT is following. Prognosis is guarded this time. Current medications reviewed. Objective - Vital Signs Vital signs: Vital Signs Temp 97.9 F 03/14/22 19:51 Pulse 68 03/14/22 19:51 Resp 20 03/14/22 19:51 BP 119/73 03/14/22 19:51 Pulse Ox 92 L 03/14/22 19:51 Intake & Output 03/14/22 03/14/22 03/15/22 06:59 18:59 06:59 Intake Total 71.617 300.566 Output Total 1800 650 Balance -1728.383 -349.434 Weight 102.5 kg Intake: Intake, IV Titration 71.617 300.566 Amount Insulin Regular 100 unit 71.617 50.566 In Sodium Chloride 0.9% 100 ml @ Titrate IV .Q0M [facility] Rx#:[id number] cefTRIAXone 1 gm In 50 Sodium Chloride 0.9% 50 ml @ 100 mls/hr IVPB Q24HR [facility] Rx#:[id number] methylPREDNISolone SOD 100 SUCCIN 500 mg In Sodium Chloride 0.9% 100 ml @ 100 mls/hr IVPB DAILY [facility] Rx#:[id number] metroNIDAZOLE-NS PMX 500 100 mg In Saline 1 100ml.bag @ 100 mls/hr IVPB Q8HR [facility] Rx#:[id number] Output: Urine 1800 650 Other: Voiding Method Indwelling Catheter Indwelling Catheter - Exam PHYSICAL EXAMINATION: Patient is lying in the bed comfortably, no acute distress, awake alert and oriented.. HEENT: Normocephalic. Neck is supple. Pupils reactive. Nostrils clear. Oral cavity is moist. Neck reveals no JVD, carotid bruits, or thyromegaly. CHEST EXAMINATION: Trachea is central. Symmetrical expansion. Scattered crackles. No wheezing. Nonlabored breathing.. CARDIAC: Normal S1, S2 with no gallops. No murmurs ABDOMEN: Soft. Bowel sounds normal. No organomegaly. No abdominal bruits. Extremities: reveal no edema. No clubbing or cyanosis Neurologically awake, alert, oriented x3 Right upper extremity weakness. Right lower extremity paralysis and numbness. No slurred speech or facial droop. Skin: No rash or skin lesions. Psychiatric: Coperative. Nonsuicidal Musculoskeletal: No joint swelling or deformity. Normal range of motion. - Labs CBC & Chem 7: 03/14/22 08:38 03/14/22 08:38 Labs: Abnormal Lab Results - Last 24 Hours (Table) 03/13/22 03/13/22 03/14/22 Range/Units 22:13 23:09 00:06 WBC (3.8-10.6) k/uL RBC (4.30-5.90) m/uL Hgb (13.0-17.5) gm/dL Hct (39.0-53.0) % MCHC (31.0-37.0) g/dL RDW (11.5-15.5) % Plt Count (150-450) k/uL Neutrophils # (Manual) (1.3-7.7) k/uL Lymphocytes # (Manual) (1.0-4.8) k/uL Nucleated RBCs (0-0) /100 WBC Sodium (137-145) mmol/L Potassium (3.5-5.1) mmol/L Carbon Dioxide (22-30) mmol/L BUN (9-20) mg/dL Glucose (74-99) mg/dL POC Glucose (mg/dL) 377 H 299 H 233 H (75-99) mg/dL Calcium (8.4-10.2) mg/dL 03/14/22 03/14/22 03/14/22 Range/Units 01:58 04:07 05:54 WBC (3.8-10.6) k/uL RBC (4.30-5.90) m/uL Hgb (13.0-17.5) gm/dL Hct (39.0-53.0) % MCHC (31.0-37.0) g/dL RDW (11.5-15.5) % Plt Count (150-450) k/uL Neutrophils # (Manual) (1.3-7.7) k/uL Lymphocytes # (Manual) (1.0-4.8) k/uL Nucleated RBCs (0-0) /100 WBC Sodium (137-145) mmol/L Potassium (3.5-5.1) mmol/L Carbon Dioxide (22-30) mmol/L BUN (9-20) mg/dL Glucose (74-99) mg/dL POC Glucose (mg/dL) 149 H 145 H 144 H (75-99) mg/dL Calcium (8.4-10.2) mg/dL 03/14/22 03/14/22 03/14/22 Range/Units 08:01 08:38 08:38 WBC 17.5 H (3.8-10.6) k/uL RBC 3.67 L (4.30-5.90) m/uL Hgb 9.6 L (13.0-17.5) gm/dL Hct 32.9 L (39.0-53.0) % MCHC 29.4 L (31.0-37.0) g/dL RDW 16.1 H (11.5-15.5) % Plt Count 500 H (150-450) k/uL Neutrophils # (Manual) 16.45 H (1.3-7.7) k/uL Lymphocytes # (Manual) 0.70 L (1.0-4.8) k/uL Nucleated RBCs 1 H (0-0) /100 WBC Sodium 129 L (137-145) mmol/L Potassium 5.8 H (3.5-5.1) mmol/L Carbon Dioxide 14 L (22-30) mmol/L BUN 35 H (9-20) mg/dL Glucose 199 H (74-99) mg/dL POC Glucose (mg/dL) 206 H (75-99) mg/dL Calcium 7.6 L (8.4-10.2) mg/dL 03/14/22 03/14/22 03/14/22 Range/Units 10:11 11:56 14:09 WBC (3.8-10.6) k/uL RBC (4.30-5.90) m/uL Hgb (13.0-17.5) gm/dL Hct (39.0-53.0) % MCHC (31.0-37.0) g/dL RDW (11.5-15.5) % Plt Count (150-450) k/uL Neutrophils # (Manual) (1.3-7.7) k/uL Lymphocytes # (Manual) (1.0-4.8) k/uL Nucleated RBCs (0-0) /100 WBC Sodium (137-145) mmol/L Potassium (3.5-5.1) mmol/L Carbon Dioxide (22-30) mmol/L BUN (9-20) mg/dL Glucose (74-99) mg/dL POC Glucose (mg/dL) 262 H 228 H 282 H (75-99) mg/dL Calcium (8.4-10.2) mg/dL 03/14/22 03/14/22 03/14/22 Range/Units 16:13 18:05 20:00 WBC (3.8-10.6) k/uL RBC (4.30-5.90) m/uL Hgb (13.0-17.5) gm/dL Hct (39.0-53.0) % MCHC (31.0-37.0) g/dL RDW (11.5-15.5) % Plt Count (150-450) k/uL Neutrophils # (Manual) (1.3-7.7) k/uL Lymphocytes # (Manual) (1.0-4.8) k/uL Nucleated RBCs (0-0) /100 WBC Sodium (137-145) mmol/L Potassium (3.5-5.1) mmol/L Carbon Dioxide (22-30) mmol/L BUN (9-20) mg/dL Glucose (74-99) mg/dL POC Glucose (mg/dL) 221 H 234 H 326 H (75-99) mg/dL Calcium (8.4-10.2) mg/dL 03/14/22 Range/Units 21:59 WBC (3.8-10.6) k/uL RBC (4.30-5.90) m/uL Hgb (13.0-17.5) gm/dL Hct (39.0-53.0) % MCHC (31.0-37.0) g/dL RDW (11.5-15.5) % Plt Count (150-450) k/uL Neutrophils # (Manual) (1.3-7.7) k/uL Lymphocytes # (Manual) (1.0-4.8) k/uL Nucleated RBCs (0-0) /100 WBC Sodium (137-145) mmol/L Potassium (3.5-5.1) mmol/L Carbon Dioxide (22-30) mmol/L BUN (9-20) mg/dL Glucose (74-99) mg/dL POC Glucose (mg/dL) 346 H (75-99) mg/dL Calcium (8.4-10.2) mg/dL Assessment and Plan Assessment: Acute GI bleed with hemoglobin 6.1 on admission. Status post EGD showed mild gastritis and no active bleeding noted. Hemoglobin around 9 stable.. Acute blood loss anemia Gallbladder wall thickening possible acute cholecystitis as per CT. ultrasound showed no evidence of acute cholecystitis. Right lower extremity weakness. CT lumbar spine showed spinal stenosis. Orthopedic surgery is on board. Chronic right upper extremity weakness due to previous stroke Lactic acidosis 2.8 on admission. improved Mildly elevated troponin level/troponin leak Chronic CHF with systolic dysfunction. ejection fraction 30 to 35%. status post AICD placement History of [place] Coronary disease with history of stent placement GERD Hyperlipidemia Diabetes type 2 uncontrolled with hyperglycemia Hypertension patient is currently hypotensive History of prostate cancer status post laser/radiation History of basal cell and melanoma removed History of aortic valve replacement Peripheral vascular disease with femoropopliteal PTCA with stent placement History of abdominal aortogram with runoff Prior history of smoking GI prophylaxis on PPI and DVT prophylaxis with SCDs Plan: Patient was seen by neurology due to right lower extremity weakness. CT lumbar spine was done which showed severe lumbar spinal stenosis.. Orthopedic surgery is on board. Patient was started on IV steroids. Patient will be continued on Protonix IV, changed to twice daily. Patient is s/p EGD by general surgery which showed mild gastritis. No active bleeding was noted. Continue with antibiotics in the form of ceftriaxone and Flagyl. Anticoagulation is on hold due to GI bleed. monitor blood pressure closely. Patient is currently hypotensive. Follow-up H&H closely. Hold blood pressure medications. Patient was started on oral diet and advanced to regular. PTOT consulted. Continue to follow closely. Prognosis is guarded at this time. Time with Patient: Greater than 30
[2022-03-15 09:53] LABS: Anisocytosis Slight; Basophils % (A) 0 %; Eosinophils # (A) 0.1 k/uL (0-0.7); Eosinophils % (A) 1 %; HCT 30.4 % (39.0-53.0); HGB 9.6 gm/dL (13.0-17.5); Hypochromasia Marked; Lymphocytes # (A) 0.3 k/uL (1.0-4.8); Lymphocytes % (A) 2 %; MCH 27.3 pg (25.0-35.0); MCHC 31.5 g/dL (31.0-37.0); MCV 86.7 fL (80.0-100.0); Mean Platelet Volume 9.9; Monocytes # (A) 0.2 k/uL (0-1.0); Monocytes % (A) 2 %; Neutrophils # (A) 11.9 k/uL (1.3-7.7); Neutrophils % (A) 95 %; Platelet Count 393 k/uL (150-450); Poikilocytosis Marked; RBC 3.51 m/uL (4.30-5.90); RDW 16.6 % (11.5-15.5); WBC 12.5 k/uL (3.8-10.6)
--- NOTE | 2022-03-15 10:13 | P.PN ---
Progress Note - Text Progress Note Date: 03/15/22 Patient is intubated in the ICU. He had a precoated yesterday. He had an episode of severe hypotension. Abdomen is soft mildly distended. PEG tube is clean dry intact. Patient will start low-dose tube feeds tonight.
[2022-03-15 11:25] LABS: Glucose,Whole Blood 245 mg/dL (75-99)
[2022-03-15 16:20] LABS: Glucose,Whole Blood 328 mg/dL (75-99)
[2022-03-15] MEDS: SODIUM CHLORIDE 0.9% 1,000 ML IV SCH (18:22)
[2022-03-15] MEDS: ATORVASTATIN 40 MG TAB PO SCH (20:20)
[2022-03-15 20:55] LABS: Glucose,Whole Blood 337 mg/dL (75-99)
[2022-03-16 05:50] LABS: Glucose,Whole Blood 275 mg/dL (75-99)
[2022-03-16] MEDS: INSULIN DETEMIR (LEVEMIR) 100 UNIT/ML SYR SQ SCH (06:35)
[2022-03-16] MEDS: INSULIN ASPART (NovoLOG) 100 UNIT/ML VIAL SQ SCH ×4 (06:35→21:39)
[2022-03-16] MEDS: MIDODRINE 5 MG TAB PO SCH ×2 (06:37→17:06)
[2022-03-16 09:21] LABS: African American GFR (CKD) >90 (>60 ml/min/1.73 sqM); Anion Gap 6 mmol/L; Blood Urea Nitrogen 45 mg/dL (9-20); Calcium 8.1 mg/dL (8.4-10.2); Carbon Dioxide 24 mmol/L (22-30); Chloride 102 mmol/L (98-107); Glucose 279 mg/dL (74-99); Non-African American GFR(CKD) 81 (>60 ml/min/1.73 sqM); Potassium 5.7 mmol/L (3.5-5.1); Sodium 132 mmol/L (137-145)
[2022-03-16] MEDS: HEPARIN SODIUM,PORCINE/PF 5,000 UNIT/0.5 ML SYRINGE SQ SCH ×3 (10:04→23:17)
[2022-03-16] MEDS: EZETIMIBE 10 MG TAB PO SCH (10:05)
[2022-03-16] MEDS: SPIRONOLACTONE 25 MG TAB PO SCH (10:05)
[2022-03-16] MEDS: AMIODARONE 200 MG TAB PO SCH (10:05)
[2022-03-16] MEDS: METOPROLOL SUCCINATE (ER) 100 MG TAB.ER.24H PO SCH ×2 (10:06→21:38)
[2022-03-16] MEDS: PANTOPRAZOLE 40 MG/10 ML VIAL IVP SCH ×2 (10:06→21:38)
[2022-03-16] MEDS: FUROSEMIDE 10 MG/ML 2 ML VIAL IV SCH (10:06)
--- NOTE | 2022-03-16 11:38 | P.PN ---
Progress Note - Text Progress Note Date: 03/16/22 Patient's currently resting in bed. He denies any significant abdominal pain. His white count is decreased to 12. On exam vital signs are stable. Abdomen soft. Hemoglobin is stable at 9.6. He'll continue be observed.
[2022-03-16 11:43] LABS: Glucose,Whole Blood 350 mg/dL (75-99)
--- NOTE | 2022-03-16 13:34 | P.PN ---
Subjective Progress Note Date: 03/16/22 The patient is seen sitting in recliner chair and feels he is doing about the same. Objective - Vital Signs Vital signs: Vital Signs Temp 98.4 F 03/16/22 11:57 Pulse 74 03/16/22 11:57 Resp 19 03/16/22 11:57 BP 140/60 03/16/22 11:57 Pulse Ox 95 03/16/22 11:57 Intake & Output 03/15/22 03/16/22 03/16/22 18:59 06:59 18:59 Intake Total 18.1 180 Output Total 2100 1000 1725 Balance -2081.9 -1000 -1545 Weight 102.5 kg Intake: Intake, IV Titration 18.1 Amount Insulin Regular 100 unit 18.1 In Sodium Chloride 0.9% 100 ml @ Titrate IV .Q0M [facility] Rx#:[id number] Oral 180 Output: Urine 2100 1000 1725 Uretheral (Jean) 1000 Other: Voiding Method Indwelling Catheter Indwelling Catheter - Exam GENERAL: The patient is lying in bed and is not in acute distress. NEUROLOGICAL: Higher mental function: The patient is awake, alert, oriented to self, place and time. Patient is following commands. No aphasia and no neglect. Cranial nerves: The pupils are round, equal and reactive to light. Visual roman are full to confrontation throughout. Extraocular movement is intact no nystagmus is noted. Facial sensation is normal to touch throughout. The facial strength is normal throughout. Mild dysarthria is noted. Shoulder shrug is normal bilaterally. Motor: Gait is deferred because of his weakness. The strength is right forearm is 4+, right hand technical services assistant is 5/5, minimally able to lift proximally of right upper (patient stated his right upper extremity weakness is old). Right lower extremity: right thigh is 2 while knee extension/distally has antigravity. Left is 4+. Normal bulk. Sensation: Sensation is feeling better over the right lower extremity to touch compared to prior. Reflexes (right/left): 1+ throughout. Plantars are mute bilaterally. ADDITIONAL WORK-UP NO LISTED ON PLAN: TSH normal, vitamin B12 >2000, folate 10.4, ammonia <9. CT head reported as Age related atrophic and chronic small vessel ischemic change without acute intracrial process seen at this time. Repeat CT head rule out any interval change (CVA) from last CT head. - Labs CBC & Chem 7: 03/15/22 09:01 03/16/22 08:12 Labs: Abnormal Lab Results - Last 24 Hours (Table) 03/15/22 03/15/22 03/16/22 Range/Units 16:20 20:38 05:29 Sodium (137-145) mmol/L Potassium (3.5-5.1) mmol/L BUN (9-20) mg/dL Glucose (74-99) mg/dL POC Glucose (mg/dL) 328 H 337 H 275 H (75-99) mg/dL Calcium (8.4-10.2) mg/dL 03/16/22 03/16/22 Range/Units 08:12 11:41 Sodium 132 L (137-145) mmol/L Potassium 5.7 H (3.5-5.1) mmol/L BUN 45 H (9-20) mg/dL Glucose 279 H (74-99) mg/dL POC Glucose (mg/dL) 350 H (75-99) mg/dL Calcium 8.1 L (8.4-10.2) mg/dL Assessment and Plan Assessment: * Acute severe right leg weakness, differential diagnosis is between a polyradiculopathy from lumbar spinal stenosis versus lumbosacral plexopathy related to poorly controlled diabetes. Patient's weakness is predominantly in the right leg, but the left leg is also slightly weak---there is improvement compared to initial presentation * Hypotensive episodes during this admission * Acute kidney insufficiency--resolved * Elevated LFT's (AST/ALT)--improved * Acute on chronic anemia suspected GI bleed and on presentation and had hemoglobin of 6.1 * History of stroke with residual weakness of right upper extremity. * Left ICA stenosis s/p stenting on 02/03/2022 (by Dr. Rodriguez) * History of GI bleed * History of basal cell carcinoma and melanoma that was removed * History of cardiology status post stent * s/p AICD * Diabetes mellitus type 2, poorly controlled with A1c 10.9 * Hypertension and during this hospital visit has hypotensive episode * History of prostate cancer status post the radiation and laser * History of aortic valve replacement * History of peripheral vascular disease with femoral popliteal PTCA with stent placement * History of abdominal aortogram thrown off * Prior history of smoking Plan: Patient started on Solu-Medrol 500 mg once daily since 03/11/[address] Franz, for possible right lumbosacral plexopathy versus spinal stenosis and stopped on 03/14/2022. CT of the lumbar spine showed multilevel degenerative changes. These cause varying degrees of moderate to severe central and foraminal stenosis. Orthopedic surgery on board. Patient probably has severe spinal stenosis with lumbosacral polyradiculopathy. Orthopedic surgery does not want any further workup, as patient does not have any radicular pains in the low back pain has resolved. No perineal numbness. Recommend consideration of EMG with NCS as outpatient of [facility]. Optimize control of diabetes to target A1c <7.0. At present patient's A1c is 10.9. Watch for blood sugars while being on high-dose steroids. IM following. Patient's EGD showed neuritis, mild antral gastritis, no upper GI bleed. Surgery wants to keep holding off antiplatelets and anticoagulants (was on Plavix 75mg and eliquis 5mg bid -- home meds). On lipitor 40mg daily. Suggest resuming anticoagulation as early as cleared by surgery. Q4 hour neuro checks PT and OT. General surgery team is on board for GI bleed Will defer the rest of medical management to the primary team. For DVT prophylaxis: Patient started on heparin subcu daily. Condition is very guarded. I spoke with the primary attending and they will consult palliative team. The plan is discussed with the patient. There is no further neurological work-up. Please notify neurology team if any further concerns. Boris Galarza M.D. Neuro-Hospitalist Time with Patient: Less than 30
[2022-03-16 16:50] LABS: Glucose,Whole Blood 272 mg/dL (75-99)
[2022-03-16] MEDS: SODIUM CHLORIDE 0.9% 1,000 ML IV SCH (17:07)
[2022-03-16 21:32] LABS: Glucose,Whole Blood 300 mg/dL (75-99)
[2022-03-16] MEDS: ATORVASTATIN 40 MG TAB PO SCH (21:38)
--- NOTE | 2022-03-16 22:08 | P.PN ---
Subjective Progress Note Date: 03/15/22 Patient is a 81-year-old male with a known history of hypertension, hyperlipidemia, history of GI bleed, diabetes type 2, history of basal cell and melanoma, microcytic iron deficiency anemia and currently on iron supplementation at home, history of NM, coronary with history of stent placement, AICD placement, chronic CHF ejection fraction 30 to 35% and femoropopliteal PTCA with stent placement x2 and previous history of smoking presents to ER from [facility] due to low hemoglobin level. Patient's hemoglobin on admission was 6.1. Patient was seen in the ER on 02/14/2022 with a hemoglobin of 6.6 and was transferred to [facility] since there was no GI coverage at that time. Patient had normal hemoglobin level 11.2 on 02/04/2022. Patient had colonoscopy at [facility] and was discharged back to [facility]. Patient has been having dark stools and is also taking iron supplementation at home. No complaints of abdominal pain. No hematemesis. No nausea vomiting. Denies any complaints of shortness of breath. No fever no chills. No chest pain. No leg swelling. No cough or sputum production. Patient is not any blood thinners. On admission hemoglobin 6.1 WBC 15.7 and platelets 381 Sodium 126 potassium 4.3 chloride 93 bicarbonate 21 BUN 41 creatinine 1.20 and lactic acid 2.8 blood sugar is 238 and troponin 0.075 FOBT positive 03/07/2022 patient is status post EGD showed mild gastritis and duodenitis. Patient has been complaining of right upper quadrant abdominal pain yesterday. CT of abdomen pelvis was done which showed inflammatory changes around the gallbladder with cholelithiasis concerning for acute cholecystitis. Small bilateral pleural effusions. Patient was started on antibiotics empirically. Patient otherwise complains of generalized weakness. Currently on IV hydration. Laboratory data showed WBC 16.1 hemoglobin 8.8 and platelets 317 Sodium 129 potassium 4.1 chloride 96 BUN 47 creatinine 1.38 and calcium 7.7. General surgery is on board. Patient is being current PPI. 03/08/2022 Patient is currently resting in bed. Complains of shortness of breath. Denies any complaints of chest pain. No nausea or vomiting. Laboratory data showed BUN 45 and creatinine 1.36 increased AST 368 and ALT 316 alk phos 93 Leukocytosis trending down to 13.7 hemoglobin improved to 9.3 and platelets 354. Ultrasound of the liver, gallbladder showed suspected gallbladder polyp. Patient is being current antibiotics and PPI. 03/09/2022 Patient is complaining of right leg numbness and weakness today. Patient is also complaining of lower back pain. Patient does have chronic right upper extremity weakness. Denies any slurred speech. No facial droop. Patient was concerned about having stents placed in the leg in the past. Patient does have prior history of stroke. Otherwise denies any complaints of shortness of breath. No chest pain. No abdo ulisses pain. Laboratory data showed AST 618 ALT 528 and alk phos 100. WBC 9.9 hemoglobin 8.6 and platelets 291 03/10/2022 Patient is currently lying in the bed. Awake alert and oriented but feels very weak. Still complains ofright lower extremity weakness. right lower extremity weakness. Denied any complaints of chest pain. No complains of shortness of breath.laboratory data showed hemoglobin 8.8 platelets 303 sodium 129 potassium 4.8 and chloride 100. Patient is on clear liquid diet and will be advanced as tolerated. Lumbar spine CT showed severe spinal stenosis. Orthopedic surgery and neurology is on board. Patient is being continued on antibiotics the form of ceftriaxone and Flagyl. Blood pressure ismarginal and is also being continued onMidodrin. 03/11/2022 Patient is currently resting in the bed. Awake alert and oriented. Still having right lower extremity weakness. Patient was started on IV steroids. neurology and orthopedic surgery is on board. Patient has been afebrile. Otherwise hemoglobin level isstable at 8.9 today. Patient was seen by cardiology due to prior history of carotid stent. No further breast recommended at this time. Eliquis and Plavix on hold due to GI bleed. Other laboratory data showed WBC 9.4 hemoglobin 8.9 and platelets 350 Sodium 131 potassium 4.8 chloride 99 BUN 20. Creatinine 2.86 and calcium 7.9. 03/12/2012 Patient is currently lying in the bed. Awake alert and oriented 3. Right lower extremity weakness is still present. Patient is able to move sideways while in bed. No complaints of chest pain or shortness of breath. Oral diet advanced to regular. Hemoglobin is stable. Patient was seen by neurology and orthopedic surgery. Started on IV steroids. PTOT consulted. Otherwise patient is currently on Protonix. Patient has been afebrile. No nausea vomiting or abdominal pain or diarrhea. Patient is complaining of constipation and was ordered 1 dose of MiraLAX fever. 03/13/2022. Patient is currently resting in the bed. Awake alert and oriented times. Still having the right lower extremity weakness with slight improvement. Patient is on IV steroids. On his blood sugar is elevated and patient was started on insulin drip. No complains of chest pain or shortness breath. Patient was started on oral diet and advanced. Due to have a bowel movement yesterday. No fever no chills. No cough or sputum production. Neurology and orthopedic surgery is on board due to right lower extremity weakness and low back pain. Laboratory data reviewed. 03/14/2022 Patient was admitted to hospital due to acute GI bleed status post EGD showed mild gastritis. Hemoglobin is stable. Patient also developed right lower extremity weakness and low back pain. CT lumbar spine showed severe spinal stenosis. Patient was started on IV steroids. Otherwise patient denied any complaints of chest pain or shortness of breath. No fever no chills. Minimal oral intake. No cough or sputum production. Patient was found to have swelling of the bilateral lower extremity which is worsening. Change Lasix to IV and follow-up renal function. PTOT is following. Prognosis is guarded this time. 03/15/2022 Patient is currently sitting on the side of the bed. Able to tolerate oral diet. No complaints of chest pain or shortness of breath. Leg swelling is improving. Patient is being current on IV Lasix. Hemoglobin is stable. Right lower extremity weakness is still present but with slight improvement. Patient is off steroids now. Currently on PT OT. No complaints of fever or chills. No nausea vomiting or abdominal pain or d iarrhea. Tolerating oral diet. Current medications reviewed. Objective - Vital Signs Vital signs: Vital Signs Temp 97.9 F 03/15/22 20:00 Pulse 68 03/15/22 20:00 Resp 18 03/15/22 20:00 BP 135/63 03/15/22 20:00 Pulse Ox 98 03/15/22 20:00 Intake & Output 03/15/22 03/15/22 03/16/22 06:59 18:59 06:59 Intake Total 58.117 18.1 Output Total 900 2100 Balance -841.883 -2081.9 Weight 103.5 kg Intake: Intake, IV Titration 58.117 18.1 Amount Insulin Regular 100 unit 58.117 18.1 In Sodium Chloride 0.9% 100 ml @ Titrate IV .Q0M [facility] Rx#:[id number] Output: Urine 900 2100 Other: Voiding Method Indwelling Catheter Indwelling Catheter - Exam PHYSICAL EXAMINATION: Patient is lying in the bed comfortably, no acute distress, awake alert and oriented.. HEENT: Normocephalic. Neck is supple. Pupils reactive. Nostrils clear. Oral cavity is moist. Neck reveals no JVD, carotid bruits, or thyromegaly. CHEST EXAMINATION: Trachea is central. Symmetrical expansion. Scattered crackles. No wheezing. Nonlabored breathing.. CARDIAC: Normal S1, S2 with no gallops. No murmurs ABDOMEN: Soft. Bowel sounds normal. No organomegaly. No abdominal bruits. Extremities: reveal no edema. No clubbing or cyanosis Neurologically awake, alert, oriented x3 Right upper extremity weakness. Right lower extremity paralysis and numbness. No slurred speech or facial droop. Skin: No rash or skin lesions. Psychiatric: Coperative. Nonsuicidal Musculoskeletal: No joint swelling or deformity. Normal range of motion. - Labs CBC & Chem 7: 03/15/22 09:01 03/16/22 08:12 Labs: Abnormal Lab Results - Last 24 Hours (Table) 03/14/22 03/14/22 03/14/22 Range/Units 21:59 22:59 23:40 WBC (3.8-10.6) k/uL RBC (4.30-5.90) m/uL Hgb (13.0-17.5) gm/dL Hct (39.0-53.0) % RDW (11.5-15.5) % Neutrophils # (1.3-7.7) k/uL Lymphocytes # (1.0-4.8) k/uL POC Glucose (mg/dL) 346 H 309 H 266 H (75-99) mg/dL 03/15/22 03/15/22 03/15/22 Range/Units 01:54 03:44 05:58 WBC (3.8-10.6) k/uL RBC (4.30-5.90) m/uL Hgb (13.0-17.5) gm/dL Hct (39.0-53.0) % RDW (11.5-15.5) % Neutrophils # (1.3-7.7) k/uL Lymphocytes # (1.0-4.8) k/uL POC Glucose (mg/dL) 154 H 146 H 219 H (75-99) mg/dL 03/15/22 03/15/22 03/15/22 Range/Units 08:19 09:01 11:24 WBC 12.5 H (3.8-10.6) k/uL RBC 3.51 L (4.30-5.90) m/uL Hgb 9.6 L (13.0-17.5) gm/dL Hct 30.4 L (39.0-53.0) % RDW 16.6 H (11.5-15.5) % Neutrophils # 11.9 H (1.3-7.7) k/uL Lymphocytes # 0.3 L (1.0-4.8) k/uL POC Glucose (mg/dL) 274 H 245 H (75-99) mg/dL 03/15/22 03/15/22 Range/Units 16:20 20:38 WBC (3.8-10.6) k/uL RBC (4.30-5.90) m/uL Hgb (13.0-17.5) gm/dL Hct (39.0-53.0) % RDW (11.5-15.5) % Neutrophils # (1.3-7.7) k/uL Lymphocytes # (1.0-4.8) k/uL POC Glucose (mg/dL) 328 H 337 H (75-99) mg/dL Assessment and Plan Assessment: Acute GI bleed with hemoglobin 6.1 on admission. Status post EGD showed mild gastritis and no active bleeding noted. Hemoglobin around 9 stable.. Acute blood loss anemia Gallbladder wall thickening possible acute cholecystitis as per CT. ultrasound showed no evidence of acute cholecystitis. Right lower extremity weakness. CT lumbar spine showed spinal stenosis. Orthopedic surgery is on board. Chronic right upper extremity weakness due to previous stroke Lactic acidosis 2.8 on admission. improved Mildly elevated troponin level/troponin leak Chronic CHF with systolic dysfunction. ejection fraction 30 to 35%. status post AICD placement History of NM Coronary disease with history of stent placement GERD Hyperlipidemia Diabetes type 2 uncontrolled with hyperglycemia Hypertension patient is currently hypotensive History of prostate cancer status post laser/radiation History of basal cell and melanoma removed History of aortic valve replacement Peripheral vascular disease with femoropopliteal PTCA with stent placement History of abdominal aortogram with runoff Prior history of smoking GI prophylaxis on PPI and DVT prophylaxis with SCDs Plan: Patient was seen by neurology due to right lower extremity weakness. CT lumbar spine was done which showed severe lumbar spinal stenosis.. Orthopedic surgery is on board. Patient was started on IV steroids. Patient will be continued on Protonix IV, changed to twice daily. Patient is s/p EGD by general surgery which showed mild gastritis. No active bleeding was noted. Continue with antibiotics in the form of ceftriaxone and Flagyl. Anticoagulation is on hold due to GI bleed. monitor blood pressure closely. Patient is currently hypotensive. Follow-up H&H closely. Hold blood pressure medications. Patient was started on oral diet and advanced to regular. PTOT consulted. Continue to follow closely. Prognosis is guarded at this time. Time with Patient: Greater than 30
--- NOTE | 2022-03-16 22:09 | P.PN ---
Subjective Progress Note Date: 03/16/22 Patient is a 81-year-old male with a known history of hypertension, hyperlipidemia, history of GI bleed, diabetes type 2, history of basal cell and melanoma, microcytic iron deficiency anemia and currently on iron supplementation at home, history of OK, coronary with history of stent placement, AICD placement, chronic CHF ejection fraction 30 to 35% and femoropopliteal PTCA with stent placement x2 and previous history of smoking presents to ER from [facility] due to low hemoglobin level. Patient's hemoglobin on admission was 6.1. Patient was seen in the ER on 02/14/2022 with a hemoglobin of 6.6 and was transferred to [facility] since there was no GI coverage at that time. Patient had normal hemoglobin level 11.2 on 02/04/2022. Patient had colonoscopy at [facility] and was discharged back to [facility]. Patient has been having dark stools and is also taking iron supplementation at home. No complaints of abdominal pain. No hematemesis. No nausea vomiting. Denies any complaints of shortness of breath. No fever no chills. No chest pain. No leg swelling. No cough or sputum production. Patient is not any blood thinners. On admission hemoglobin 6.1 WBC 15.7 and platelets 381 Sodium 126 potassium 4.3 chloride 93 bicarbonate 21 BUN 41 creatinine 1.20 and lactic acid 2.8 blood sugar is 238 and troponin 0.075 FOBT positive 03/07/2022 patient is status post EGD showed mild gastritis and duodenitis. Patient has been complaining of right upper quadrant abdominal pain yesterday. CT of abdomen pelvis was done which showed inflammatory changes around the gallbladder with cholelithiasis concerning for acute cholecystitis. Small bilateral pleural effusions. Patient was started on antibiotics empirically. Patient otherwise complains of generalized weakness. Currently on IV hydration. Laboratory data showed WBC 16.1 hemoglobin 8.8 and platelets 317 Sodium 129 potassium 4.1 chloride 96 BUN 47 creatinine 1.38 and calcium 7.7. General surgery is on board. Patient is being current PPI. 03/08/2022 Patient is currently resting in bed. Complains of shortness of breath. Denies any complaints of chest pain. No nausea or vomiting. Laboratory data showed BUN 45 and creatinine 1.36 increased AST 368 and ALT 316 alk phos 93 Leukocytosis trending down to 13.7 hemoglobin improved to 9.3 and platelets 354. Ultrasound of the liver, gallbladder showed suspected gallbladder polyp. Patient is being current antibiotics and PPI. 03/09/2022 Patient is complaining of right leg numbness and weakness today. Patient is also complaining of lower back pain. Patient does have chronic right upper extremity weakness. Denies any slurred speech. No facial droop. Patient was concerned about having stents placed in the leg in the past. Patient does have prior history of stroke. Otherwise denies any complaints of shortness of breath. No chest pain. No abdo ulisses pain. Laboratory data showed AST 618 ALT 528 and alk phos 100. WBC 9.9 hemoglobin 8.6 and platelets 291 03/10/2022 Patient is currently lying in the bed. Awake alert and oriented but feels very weak. Still complains ofright lower extremity weakness. right lower extremity weakness. Denied any complaints of chest pain. No complains of shortness of breath.laboratory data showed hemoglobin 8.8 platelets 303 sodium 129 potassium 4.8 and chloride 100. Patient is on clear liquid diet and will be advanced as tolerated. Lumbar spine CT showed severe spinal stenosis. Orthopedic surgery and neurology is on board. Patient is being continued on antibiotics the form of ceftriaxone and Flagyl. Blood pressure ismarginal and is also being continued onMidodrin. 03/11/2022 Patient is currently resting in the bed. Awake alert and oriented. Still having right lower extremity weakness. Patient was started on IV steroids. neurology and orthopedic surgery is on board. Patient has been afebrile. Otherwise hemoglobin level isstable at 8.9 today. Patient was seen by cardiology due to prior history of carotid stent. No further breast recommended at this time. Eliquis and Plavix on hold due to GI bleed. Other laboratory data showed WBC 9.4 hemoglobin 8.9 and platelets 350 Sodium 131 potassium 4.8 chloride 99 BUN 20. Creatinine 2.86 and calcium 7.9. 03/12/2012 Patient is currently lying in the bed. Awake alert and oriented 3. Right lower extremity weakness is still present. Patient is able to move sideways while in bed. No complaints of chest pain or shortness of breath. Oral diet advanced to regular. Hemoglobin is stable. Patient was seen by neurology and orthopedic surgery. Started on IV steroids. PTOT consulted. Otherwise patient is currently on Protonix. Patient has been afebrile. No nausea vomiting or abdominal pain or diarrhea. Patient is complaining of constipation and was ordered 1 dose of MiraLAX fever. 03/13/2022. Patient is currently resting in the bed. Awake alert and oriented times. Still having the right lower extremity weakness with slight improvement. Patient is on IV steroids. On his blood sugar is elevated and patient was started on insulin drip. No complains of chest pain or shortness breath. Patient was started on oral diet and advanced. Due to have a bowel movement yesterday. No fever no chills. No cough or sputum production. Neurology and orthopedic surgery is on board due to right lower extremity weakness and low back pain. Laboratory data reviewed. 03/14/2022 Patient was admitted to hospital due to acute GI bleed status post EGD showed mild gastritis. Hemoglobin is stable. Patient also developed right lower extremity weakness and low back pain. CT lumbar spine showed severe spinal stenosis. Patient was started on IV steroids. Otherwise patient denied any complaints of chest pain or shortness of breath. No fever no chills. Minimal oral intake. No cough or sputum production. Patient was found to have swelling of the bilateral lower extremity which is worsening. Change Lasix to IV and follow-up renal function. PTOT is following. Prognosis is guarded this time. 03/15/2022 Patient is currently sitting on the side of the bed. Able to tolerate oral diet. No complaints of chest pain or shortness of breath. Leg swelling is improving. Patient is being current on IV Lasix. Hemoglobin is stable. Right lower extremity weakness is still present but with slight improvement. Patient is off steroids now. Currently on PT OT. No complaints of fever or chills. No nausea vomiting or abdominal pain or d iarrhea. Tolerating oral diet. 03/16/2022 Patient was admitted to the hospital due to acute GI bleed status post EGD. No active bleeding noted. Hemoglobin is stable. Patient develop right lower extremity weakness and CT the lumbar spine showed severe spinal stenosis. Patient was given high-dose steroids with minimal improvement. Orthopedic surgery recommends no surgical intervention at this t petty. Patient otherwise denies any complaints of chest pain or shortness of breath. No fever no chills. Able to participate in physical therapy slowly. Anticipate discharge to rehab in the next 24 to 48 hours. Current medications reviewed. Objective - Vital Signs Vital signs: Vital Signs Temp 98.4 F 03/16/22 11:57 Pulse 74 03/16/22 11:57 Resp 19 03/16/22 11:57 BP 140/60 03/16/22 11:57 Pulse Ox 95 03/16/22 11:57 Intake & Output 03/15/22 03/16/22 03/16/22 18:59 06:59 18:59 Intake Total 18.1 180 Output Total 2100 1000 1725 Balance -2081.9 -1000 -1545 Weight 102.5 kg Intake: Intake, IV Titration 18.1 Amount Insulin Regular 100 unit 18.1 In Sodium Chloride 0.9% 100 ml @ Titrate IV .Q0M [facility] Rx#:[id number] Oral 180 Output: Urine 2100 1000 1725 Uretheral (Jean) 1000 Other: Voiding Method Indwelling Catheter Indwelling Catheter - Exam PHYSICAL EXAMINATION: Patient is lying in the bed comfortably, no acute distress, awake alert and oriented.. HEENT: Normocephalic. Neck is supple. Pupils reactive. Nostrils clear. Oral cavity is moist. Neck reveals no JVD, carotid bruits, or thyromegaly. CHEST EXAMINATION: Trachea is central. Symmetrical expansion. Scattered c rackles. No wheezing. Nonlabored breathing.. CARDIAC: Normal S1, S2 with no gallops. No murmurs ABDOMEN: Soft. Bowel sounds normal. No organomegaly. No abdominal bruits. Extremities: reveal no edema. No clubbing or cyanosis Neurologically awake, alert, oriented x3 Right upper extremity weakness. Right lower extremity paralysis and numbness. No slurred speech or facial droop. Skin: No rash or skin lesions. Psychiatric: Coperative. Nonsuicidal Musculoskeletal: No joint swelling or deformity. Normal range of motion. - Labs CBC & Chem 7: 03/15/22 09:01 03/16/22 08:12 Labs: Abnormal Lab Results - Last 24 Hours (Table) 03/15/22 03/15/22 03/16/22 Range/Units 16:20 20:38 05:29 Sodium (137-145) mmol/L Potassium (3.5-5.1) mmol/L BUN (9-20) mg/dL Glucose (74-99) mg/dL POC Glucose (mg/dL) 328 H 337 H 275 H (75-99) mg/dL Calcium (8.4-10.2) mg/dL 03/16/22 03/16/22 Range/Units 08:12 11:41 Sodium 132 L (137-145) mmol/L Potassium 5.7 H (3.5-5.1) mmol/L BUN 45 H (9-20) mg/dL Glucose 279 H (74-99) mg/dL POC Glucose (mg/dL) 350 H (75-99) mg/dL Calcium 8.1 L (8.4-10.2) mg/dL Assessment and Plan Assessment: Acute GI bleed with hemoglobin 6.1 on admission. Status post EGD showed mild gastritis and no active bleeding noted. Hemoglobin around 9 stable.. Acute blood loss anemia Right lower extremity weakness. CT lumbar spine showed spinal stenosis. Orthopedic surgery is on board. Chronic right upper extremity weakness due to previous stroke Gallbladder wall thickening possible acute cholecystitis as per CT. ultrasound showed no evidence of acute cholecystitis. Lactic acidosis 2.8 on admission. improved Mildly elevated troponin level/troponin leak Chronic CHF with systolic dysfunction. ejection fraction 30 to 35%. status post AICD placement History of OK Coronary disease with history of stent placement GERD Hyperlipidemia Diabetes type 2 uncontrolled with hyperglycemia Hypertension patient is currently hypotensive History of prostate cancer status post laser/radiation History of basal cell and melanoma removed History of aortic valve replacement Peripheral vascular disease with femoropopliteal PTCA with stent placement History of abdominal aortogram with runoff Prior history of smoking GI prophylaxis on PPI and DVT prophylaxis with SCDs Plan: Patient was seen by neurology due to right lower extremity weakness. CT lumbar spine was done which showed severe lumbar spinal stenosis.. Orthopedic surgery is on board. Patient was on IV steroids. Patient will be continued on Protonix IV, changed to twice daily. Patient is s/p EGD by general surgery which showed mild gastritis. No active bleeding was noted. Continue with antibiotics in the form of ceftriaxone and Flagyl. Anticoagulation is on hold due to GI bleed. monitor blood pressure closely. Patient is currently hypotensive. Follow-up H&H closely. Hold blood pressure medications. Patient was started on oral diet and advanced to regular. PTOT consulted. Continue to follow closely. Prognosis is guarded at this time. Time with Patient: Greater than 30
[2022-03-17 10:31] LABS: African American GFR (CKD) >90 (>60 ml/min/1.73 sqM); Anion Gap 8 mmol/L; Blood Urea Nitrogen 34 mg/dL (9-20); Calcium 8.3 mg/dL (8.4-10.2); Carbon Dioxide 24 mmol/L (22-30); Chloride 100 mmol/L (98-107); Glucose 196 mg/dL (74-99); Non-African American GFR(CKD) 86 (>60 ml/min/1.73 sqM); Potassium 5.8 mmol/L (3.5-5.1); Sodium 132 mmol/L (137-145)
[2022-03-17 10:47] LABS: Glucose,Whole Blood 181 mg/dL (75-99)
[2022-03-17 11:06] LABS: Anisocytosis Slight; Basophils % (A) 0 %; Eosinophils % (A) 0 %; HGB 9.9 gm/dL (13.0-17.5); Hypochromasia Marked; Lymphocytes # (A) 0.4 k/uL (1.0-4.8); Lymphocytes % (A) 3 %; MCH 26.4 pg (25.0-35.0); MCHC 30.1 g/dL (31.0-37.0); MCV 87.7 fL (80.0-100.0); Mean Platelet Volume 10.6; Monocytes # (A) 0.8 k/uL (0-1.0); Monocytes % (A) 5 %; Neutrophils # (A) 15.5 k/uL (1.3-7.7); Neutrophils % (A) 91 %; Platelet Count 378 k/uL (150-450); Poikilocytosis Marked; RBC 3.76 m/uL (4.30-5.90); RDW 16.3 % (11.5-15.5); WBC 16.9 k/uL (3.8-10.6)
[2022-03-17 11:41] LABS: Glucose,Whole Blood 252 mg/dL (75-99)
--- NOTE | 2022-03-17 12:17 | P.PN ---
Subjective Progress Note Date: 03/17/22 CHIEF COMPLAINT: GI bleed HISTORY OF PRESENT ILLNESS: Surgical service following in regards to patient's GI bleed. Status post EGD revealing duodenitis, mild antral gastritis no evidence of any active upper bleeding. Patient denies any abdominal pain. He has had BMs. No black stools or blood in stools reported. He is tolerating diet. Denies any nausea or vomiting. Afebrile. WBC 12.5-16.9 HGB 9.6-9.9 Patient seen and examined with Dr. Lane PHYSICAL EXAM: VITAL SIGNS: Reviewed. GENERAL: Well-developed in no acute distress. HEENT: No sclera icterus. Extraocular movements grossly intact. Moist buccal mucosa. Head is atraumatic, normocephalic. ABDOMEN: Soft. Nondistended. Nontender. NEUROLOGIC: Alert and oriented. Cranial nerves II through XII grossly intact. ASSESSMENT: 1. GI bleed and anemia. No active bleeding. Hemoglobin stable. Sodium 129 potassium 5.8 creatinine 1.0 to 2. Cholelithiasis with gallbladder polyp and elevated LFTs. LFTs trending down. Patient possibly passed a gallstone 3. Status post EGD revealing duodenitis, mild antral gastritis no evidence of any active upper bleeding PLAN: -No surgical intervention planned -Continue Regular diet -Continue to hold Plavix and Eliquis -Continue supportive care -Continue workup on right leg numbness per neuro, orthopedics -Continue PPI -Continue to monitor hemoglobin Physician [employer] note has been reviewed by physician. Signing provider agrees with the documented findings, assessment, and plan of care. Objective - Vital Signs Vital signs: Vital Signs Temp 97.5 F L 03/17/22 08:00 Pulse 69 03/17/22 08:00 Resp 18 03/17/22 08:00 BP 136/65 03/17/22 08:00 Pulse Ox 98 03/17/22 08:00 Intake & Output 03/16/22 03/17/22 03/17/22 18:59 06:59 18:59 Intake Total 360 300 Output Total 2425 Balance -2064 300 Intake: Oral 360 300 Output: Urine 2425 Other: Voiding Method Indwelling Catheter Indwelling Catheter - Labs CBC & Chem 7: 03/17/22 07:50 03/17/22 07:50 Labs: Abnormal Lab Results - Last 24 Hours (Table) 03/16/22 03/16/22 03/17/22 Range/Units 16:48 21:30 07:05 WBC (3.8-10.6) k/uL RBC (4.30-5.90) m/uL Hgb (13.0-17.5) gm/dL Hct (39.0-53.0) % MCHC (31.0-37.0) g/dL RDW (11.5-15.5) % Neutrophils # (1.3-7.7) k/uL Lymphocytes # (1.0-4.8) k/uL Sodium (137-145) mmol/L Potassium (3.5-5.1) mmol/L BUN (9-20) mg/dL Glucose (74-99) mg/dL POC Glucose (mg/dL) 272 H 300 H 181 H (75-99) mg/dL Calcium (8.4-10.2) mg/dL 03/17/22 03/17/22 03/17/22 Range/Units 07:50 07:50 11:39 WBC 16.9 H (3.8-10.6) k/uL RBC 3.76 L (4.30-5.90) m/uL Hgb 9.9 L (13.0-17.5) gm/dL Hct 33.0 L (39.0-53.0) % MCHC 30.1 L (31.0-37.0) g/dL RDW 16.3 H (11.5-15.5) % Neutrophils # 15.5 H (1.3-7.7) k/uL Lymphocytes # 0.4 L (1.0-4.8) k/uL Sodium 132 L (137-145) mmol/L Potassium 5.8 H (3.5-5.1) mmol/L BUN 34 H (9-20) mg/dL Glucose 196 H (74-99) mg/dL POC Glucose (mg/dL) 252 H (75-99) mg/dL Calcium 8.3 L (8.4-10.2) mg/dL
--- NOTE | 2022-03-17 14:56 | P.PN ---
Subjective Progress Note Date: 03/17/22 Patient is a 81-year-old male with a known history of hypertension, hyperlipidemia, history of GI bleed, diabetes type 2, history of basal cell and melanoma, microcytic iron deficiency anemia and currently on iron supplementation at home, history of KS, coronary with history of stent placement, AICD placement, chronic CHF ejection fraction 30 to 35% and femoropopliteal PTCA with stent placement x2 and previous history of smoking presents to ER from [facility] due to low hemoglobin level. Patient's hemoglobin on admission was 6.1. Patient was seen in the ER on 02/14/2022 with a hemoglobin of 6.6 and was transferred to [facility] since there was no GI coverage at that time. Patient had normal hemoglobin level 11.2 on 02/04/2022. Patient had colonoscopy at [facility] and was discharged back to [facility]. Patient has been having dark stools and is also taking iron supplementation at home. No complaints of abdominal pain. No hematemesis. No nausea vomiting. Denies any complaints of shortness of breath. No fever no chills. No chest pain. No leg swelling. No cough or sputum production. Patient is not any blood thinners. On admission hemoglobin 6.1 WBC 15.7 and platelets 381 Sodium 126 potassium 4.3 chloride 93 bicarbonate 21 BUN 41 creatinine 1.20 and lactic acid 2.8 blood sugar is 238 and troponin 0.075 FOBT positive 03/07/2022 patient is status post EGD showed mild gastritis and duodenitis. Patient has been complaining of right upper quadrant abdominal pain yesterday. CT of abdomen pelvis was done which showed inflammatory changes around the gallbladder with cholelithiasis concerning for acute cholecystitis. Small bilateral pleural effusions. Patient was started on antibiotics empirically. Patient otherwise complains of generalized weakness. Currently on IV hydration. Laboratory data showed WBC 16.1 hemoglobin 8.8 and platelets 317 Sodium 129 potassium 4.1 chloride 96 BUN 47 creatinine 1.38 and calcium 7.7. General surgery is on board. Patient is being current PPI. 03/08/2022 Patient is currently resting in bed. Complains of shortness of breath. Denies any complaints of chest pain. No nausea or vomiting. Laboratory data showed BUN 45 and creatinine 1.36 increased AST 368 and ALT 316 alk phos 93 Leukocytosis trending down to 13.7 hemoglobin improved to 9.3 and platelets 354. Ultrasound of the liver, gallbladder showed suspected gallbladder polyp. Patient is being current antibiotics and PPI. 03/09/2022 Patient is complaining of right leg numbness and weakness today. Patient is also complaining of lower back pain. Patient does have chronic right upper extremity weakness. Denies any slurred speech. No facial droop. Patient was concerned about having stents placed in the leg in the past. Patient does have prior history of stroke. Otherwise denies any complaints of shortness of breath. No chest pain. No ab dominal pain. Laboratory data showed AST 618 ALT 528 and alk phos 100. WBC 9.9 hemoglobin 8.6 and platelets 291 03/10/2022 Patient is currently lying in the bed. Awake alert and oriented but feels very weak. Still complains ofright lower extremity weakness. right lower extremity weakness. Denied any complaints of chest pain. No complains of shortness of breath.laboratory data showed hemoglobin 8.8 platelets 303 sodium 129 potassium 4.8 and chloride 100. Patient is on clear liquid diet and will be advanced as tolerated. Lumbar spine CT showed severe spinal stenosis. Orthopedic surgery and neurology is on board. Patient is being continued on antibiotics the form of ceftriaxone and Flagyl. Blood pressure ismarginal and is also being continued onMidodrin. 03/11/2022 Patient is currently resting in the bed. Awake alert and oriented. Still having right lower extremity weakness. Patient was started on IV steroids. neurology and orthopedic surgery is on board. Patient has been afebrile. Otherwise hemoglobin level isstable at 8.9 today. Patient was seen by cardiology due to prior history of carotid stent. No further breast recommended at this time. Eliquis and Plavix on hold due to GI bleed. Other laboratory data showed WBC 9.4 hemoglobin 8.9 and platelets 350 Sodium 131 potassium 4.8 chloride 99 BUN 20. Creatinine 2.86 and calcium 7.9. 03/12/2012 Patient is currently lying in the bed. Awake alert and oriented 3. Right lower extremity weakness is still present. Patient is able to move sideways while in bed. No complaints of chest pain or shortness of breath. Oral diet advanced to regular. Hemoglobin is stable. Patient was seen by neurology and orthopedic surgery. Started on IV steroids. PTOT consulted. Otherwise patient is currently on Protonix. Patient has been afebrile. No nausea vomiting or abdominal pain or diarrhea. Patient is complaining of constipation and was ordered 1 dose of MiraLAX fever. 03/13/2022. Patient is currently resting in the bed. Awake alert and oriented times. Still having the right lower extremity weakness with slight improvement. Patient is on IV steroids. On his blood sugar is elevated and patient was started on insulin drip. No complains of chest pain or shortness breath. Patient was started on oral diet and advanced. Due to have a bowel movement yesterday. No fever no chills. No cough or sputum production. Neurology and orthopedic surgery is on board due to right lower extremity weakness and low back pain. Laboratory data reviewed. 03/14/2022 Patient was admitted to hospital due to acute GI bleed status post EGD showed mild gastritis. Hemoglobin is stable. Patient also developed right lower extremity weakness and low back pain. CT lumbar spine showed severe spinal stenosis. Patient was started on IV steroids. Otherwise patient denied any complaints of chest pain or shortness of breath. No fever no chills. Minimal oral intake. No cough or sputum production. Patient was found to have swelling of the bilateral lower extremity which is worsening. Change Lasix to IV and follow-up renal function. PTOT is following. Prognosis is guarded this time. 03/15/2022 Patient is currently sitting on the side of the bed. Able to tolerate oral diet. No complaints of chest pain or shortness of breath. Leg swelling is improving. Patient is being current on IV Lasix. Hemoglobin is stable. Right lower extremity weakness is still present but with slight improvement. Patient is off steroids now. Currently on PT OT. No complaints of fever or chills. No nausea vomiting or abdominal pain or diarrhea. Tolerating oral diet. 03/16/2022 Patient was admitted to the hospital due to acute GI bleed status post EGD. No active bleeding noted. Hemoglobin is stable. Patient develop right lower extremity weakness and CT the lumbar spine showed severe spinal stenosis. Patient was given high-dose steroids with minimal improvement. Orthopedic surgery recommends no surgical intervention at this time. Patient otherwise denies any complaints of chest pain or shortness of breath. No fever no chills. Able to participate in physical therapy slowly. Anticipate discharge to rehab in the next 24 to 48 hours. 03/17/2022 Patient is seen and evaluated in follow-up and is status post EGD with no active bleeding noted. Patient has been evaluated by orthopedics recommending no surgical interventions and may follow-up outpatient for severe spinal stenosis. Patient continues with extreme weakness and will be going to ECF once stabilized discharge. She was maintained on eliquis and Plavix and will need to discuss with surgery about resuming as they have been on hold since EGD. Patient is a lso been evaluated by neurology and may follow-up in the outpatient setting. Patient denies any chest pain, shortness of breath, or palpitations. Patient is afebrile. Patient denies nausea or vomiting and tolerating diet. Review of systems: Constitutional: No reports of fatigue, fever, or chills Cardiovascular: No reports of chest pain or palpitations Respiratory: No reports of shortness of breath or cough GI: No reports of nausea, vomiting, or diarrhea : No reports of dysuria or retention Neurovascular: reports of generalized weakness and continued right lower extremity weakness and inability to move All medications have been reviewed Active Medications Acetaminophen (Acetaminophen Tab 325 Mg Tab) 650 mg PO Q6HR PRN PRN Reason: Mild Pain or Fever > 100.5 Last Admin: 03/15/22 18:24 Dose: 650 mg Documented by: Alprazolam (Alprazolam 0.25 Mg Tab) 0.25 mg PO TID PRN PRN Reason: Anxiety Last Admin: 03/15/22 21:06 Dose: 0.25 mg Documented by: Amiodarone HCl (Amiodarone 200 Mg Tab) 200 mg PO DAILY [facility] Last Admin: 03/16/22 10:05 Dose: 200 mg Documented by: Atorvastatin Calcium (Atorvastatin 40 Mg Tab) 40 mg PO HS [facility] Last Admin: 03/16/22 21:38 Dose: 40 mg Documented by: Ezetimibe (Ezetimibe 10 Mg Tab) 10 mg PO DAILY [facility] Last Admin: 03/16/22 10:05 Dose: 10 mg Documented by: Furosemide (Furosemide 20 Mg Tab) 20 mg PO DAILY [facility] Heparin Sodium (Porcine) (Heparin Sodium,Porcine/Pf 5,000 Unit/0.5 Ml Syringe) 5,000 unit SQ Q8HR [facility] Last Admin: 03/16/22 23:17 Dose: 5,000 unit Documented by: Sodium Chloride (Saline 0.9%) 1,000 mls @ 10 mls/hr IV .Q24H [facility] Last Admin: 03/16/22 17:07 Dose: 10 mls/hr Documented by: Insulin Aspart (Insulin Aspart (Novolog) 100 Unit/Ml Vial) 0 unit SQ ACHS [facility]; Protocol Last Admin: 03/16/22 21:39 Dose: 7 unit Documented by: Insulin Aspart (Insulin Aspart (Novolog) 100 Unit/Ml Vial) 5 unit SQ AC-TID [facility] Insulin Detemir (Insulin Detemir (Levemir) 100 Unit/Ml Syr) 12 unit SQ DA JUN@0700 [facility] Last Admin: 03/16/22 06:35 Dose: 12 unit Documented by: Lisinopril (Lisinopril 2.5 Mg Tab) 2.5 mg PO DAILY [facility] Last Admin: 03/16/22 10:05 Dose: 2.5 mg Documented by: Metoprolol Succinate (Metoprolol Succinate (Er) 100 Mg Tab.Er.24h) 100 mg PO BID [facility] Last Admin: 03/16/22 21:38 Dose: 100 mg Documented by: Midodrine (Midodrine 5 Mg Tab) 5 mg PO AC-BID [facility] Last Admin: 03/16/22 17:06 Dose: 5 mg Documented by: Naloxone HCl (Naloxone 0.4 Mg/Ml 1 Ml Vial) 0.2 mg IV Q2M PRN PRN Reason: Opioid Reversal Pantoprazole Sodium (Pantoprazole 40 Mg/10 Ml Vial) 40 mg IVP BID [facility] Last Admin: 03/16/22 21:38 Dose: 40 mg Documented by: Spironolactone (Spironolactone 25 Mg Tab) 12.5 mg PO DAILY [facility] Last Admin: 03/16/22 10:05 Dose: 12.5 mg Documented by: Physical exam: Patient is lying in the bed comfortably, no acute distress, awake alert and oriented.. HEENT: Normocephalic. Neck is supple. Pupils reactive. Nostrils clear. Oral cavity is moist. Neck reveals no JVD, carotid bruits, or thyromegaly. CHEST EXAMINATION: Trachea is central. Symmetrical expansion. Scattered crackles. No wheezing. Nonlabored breathing.. CARDIAC: Normal S1, S2 with no gallops. No murmurs ABDOMEN: Soft. Bowel sounds normal. No organomegaly. No abdominal bruits. Extremities: reveal no edema. No clubbing or cyanosis, right lower extremity cold to touch Neurologically awake, alert, oriented x3 Right upper extremity weakness. Right lower extremity paralysis and numbness. No slurred speech or facial droop. Skin: No rash or skin lesions. Psychiatric: Cooperative. Non-suicidal Musculoskeletal: No joint swelling or deformity. Normal range of motion. Assessment: Acute GI bleed with hemoglobin 6.1 on admission. Status post EGD showed mild gastritis and no active bleeding noted. Hemoglobin 9.9 stable.. Acute blood loss anemia Right lower extremity weakness. CT lumbar spine showed spinal stenosis. Orthopedic surgery is on board. Chronic right upper extremity weakness due to previous stroke Gallbladder wall thickening possible acute cholecystitis as per CT. ultrasound showed no evidence of acute cholecystitis. Lactic acidosis 2.8 on admission. improved Mildly elevated troponin level/troponin leak Chronic CHF with systolic dysfunction. ejection fraction 30 to 35%. status post AICD placement History of KS Coronary disease with history of stent placement GERD Hyperlipidemia Diabetes type 2 uncontrolled with hyperglycemia Hypertension patient is currently hypotensive History of prostate cancer status post laser/radiation History of basal cell and melanoma removed History of aortic valve replacement Peripheral vascular disease with femoropopliteal PTCA with stent placement History of abdominal aortogram with runoff Prior history of smoking GI prophylaxis on PPI and DVT prophylaxis with SCDs Plan: Patient was seen by neurology due to right lower extremity weakness. CT lumbar spine was done which showed severe lumbar spinal stenosis.. Orthopedic surgery is on board recommending no surgical retention at this time and continuing with conservative management. Patient needs continued physical therapy Patient was on IV steroids. Recommend continuing Accu-Cheks before meals and at bedtime and close monitoring of blood sugars. Continue with current medication regimen. Patient will be continued on Protonix IV, changed to twice daily. Patient is s/p EGD by general surgery which showed mild gastritis. No active bleeding was noted. Anticoagulation is on hold due to GI bleed and will discuss with surgery about resuming Plavix and eliquis. Recommend to monitor blood pressure closely. Patient was started on oral diet and advanced to regular. Awaiting PT/OT notes as patient will be going to ECF once stabilized and discharged Prognosis is guarded at this time. Possible discharge in 24 hours The impression and plan of care has been dictated by Edwige Bermudez, Nurse Practitioner as directed. Dr. Sathya MD I have performed a history and examination and MDM of this patient, discussed the same with the dictator, and agree with the dictator's assessment and plan as written ,documented as a scribe. Based on total visit time, I have performed more than 50% of the visit. Objective - Vital Signs Vital signs: Vital Signs Temp 97.5 F L 03/17/22 08:00 Pulse 69 03/17/22 08:00 Resp 18 03/17/22 08:00 BP 136/65 03/17/22 08:00 Pulse Ox 98 03/17/22 08:00 Intake & Output 03/16/22 03/17/22 03/17/22 18:59 06:59 18:59 Intake Total 360 300 Output Total 2425 Balance -2064 300 Intake: Oral 360 300 Output: Urine 2425 Other: Voiding Method Indwelling Catheter Indwelling Catheter - Labs CBC & Chem 7: 03/17/22 07:50 03/17/22 07:50 Labs: Abnormal Lab Results - Last 24 Hours (Table) 03/16/22 03/16/22 03/17/22 Range/Units 16:48 21:30 07:05 WBC (3.8-10.6) k/uL RBC (4.30-5.90) m/uL Hgb (13.0-17.5) gm/dL Hct (39.0-53.0) % MCHC (31.0-37.0) g/dL RDW (11.5-15.5) % Neutrophils # (1.3-7.7) k/uL Lymphocytes # (1.0-4.8) k/uL Sodium (137-145) mmol/L Potassium (3.5-5.1) mmol/L BUN (9-20) mg/dL Glucose (74-99) mg/dL POC Glucose (mg/dL) 272 H 300 H 181 H (75-99) mg/dL Calcium (8.4-10.2) mg/dL 03/17/22 03/17/22 03/17/22 Range/Units 07:50 07:50 11:39 WBC 16.9 H (3.8-10.6) k/uL RBC 3.76 L (4.30-5.90) m/uL Hgb 9.9 L (13.0-17.5) gm/dL Hct 33.0 L (39.0-53.0) % MCHC 30.1 L (31.0-37.0) g/dL RDW 16.3 H (11.5-15.5) % Neutrophils # 15.5 H (1.3-7.7) k/uL Lymphocytes # 0.4 L (1.0-4.8) k/uL Sodium 132 L (137-145) mmol/L Potassium 5.8 H (3.5-5.1) mmol/L BUN 34 H (9-20) mg/dL Glucose 196 H (74-99) mg/dL POC Glucose (mg/dL) 252 H (75-99) mg/dL Calcium 8.3 L (8.4-10.2) mg/dL
[2022-03-17] MEDS: INSULIN ASPART (NovoLOG) 100 UNIT/ML VIAL SQ SCH ×7 (15:18→21:07)
[2022-03-17] MEDS: INSULIN DETEMIR (LEVEMIR) 100 UNIT/ML SYR SQ SCH (15:18)
[2022-03-17] MEDS: MIDODRINE 5 MG TAB PO SCH ×2 (15:18→17:17)
[2022-03-17] MEDS: METOPROLOL SUCCINATE (ER) 100 MG TAB.ER.24H PO SCH ×2 (15:19→21:06)
[2022-03-17] MEDS: PANTOPRAZOLE 40 MG/10 ML VIAL IVP SCH ×2 (15:19→21:07)
[2022-03-17] MEDS: HEPARIN SODIUM,PORCINE/PF 5,000 UNIT/0.5 ML SYRINGE SQ SCH ×3 (15:19→22:58)
[2022-03-17] MEDS: SPIRONOLACTONE 25 MG TAB PO SCH (15:19)
[2022-03-17] MEDS: AMIODARONE 200 MG TAB PO SCH (15:19)
[2022-03-17] MEDS: FUROSEMIDE 20 MG TAB PO SCH (15:19)
[2022-03-17] MEDS: EZETIMIBE 10 MG TAB PO SCH (15:19)
[2022-03-17] MEDS: SODIUM CHLORIDE 0.9% 1,000 ML IV SCH (15:21)
[2022-03-17 17:05] LABS: Glucose,Whole Blood 231 mg/dL (75-99)
[2022-03-17 20:25] LABS: Glucose,Whole Blood 242 mg/dL (75-99)
[2022-03-17] MEDS: ATORVASTATIN 40 MG TAB PO SCH (21:06)
[2022-03-17] MEDS: ALPRAZolam 0.25 MG TAB PO PRN (22:58)
[2022-03-18 05:54] LABS: Glucose,Whole Blood 158 mg/dL (75-99)
[2022-03-18] MEDS: MIDODRINE 5 MG TAB PO SCH (06:24)
[2022-03-18] MEDS: INSULIN DETEMIR (LEVEMIR) 100 UNIT/ML SYR SQ SCH (06:24)
[2022-03-18] MEDS: INSULIN ASPART (NovoLOG) 100 UNIT/ML VIAL SQ SCH ×4 (06:24→12:22)
[2022-03-18] MEDS ORDERED: SODIUM ZIRCONIUM CYCLOSILICATE 10 GM PACKET PO ONE (07:00)
[2022-03-18 08:34] LABS: Anisocytosis Slight; Basophils % (A) 0 %; Eosinophils # (A) 0.1 k/uL (0-0.7); Eosinophils % (A) 1 %; HCT 31.7 % (39.0-53.0); HGB 9.6 gm/dL (13.0-17.5); Hypochromasia Marked; Lymphocytes # (A) 0.5 k/uL (1.0-4.8); Lymphocytes % (A) 3 %; MCH 26.4 pg (25.0-35.0); MCHC 30.4 g/dL (31.0-37.0); Mean Platelet Volume 9.1; Monocytes # (A) 0.6 k/uL (0-1.0); Monocytes % (A) 4 %; Neutrophils # (A) 15.5 k/uL (1.3-7.7); Neutrophils % (A) 92 %; Platelet Count 340 k/uL (150-450); Poikilocytosis Marked; RBC 3.64 m/uL (4.30-5.90); RDW 16.7 % (11.5-15.5); WBC 16.8 k/uL (3.8-10.6)
[2022-03-18 09:03] LABS: African American GFR (CKD) >90 (>60 ml/min/1.73 sqM); Anion Gap 6 mmol/L; Blood Urea Nitrogen 26 mg/dL (9-20); Calcium 8.1 mg/dL (8.4-10.2); Carbon Dioxide 28 mmol/L (22-30); Chloride 100 mmol/L (98-107); Glucose 227 mg/dL (74-99); Non-African American GFR(CKD) 90 (>60 ml/min/1.73 sqM); Potassium 5.5 mmol/L (3.5-5.1); Sodium 134 mmol/L (137-145)
[2022-03-18] MEDS: HEPARIN SODIUM,PORCINE/PF 5,000 UNIT/0.5 ML SYRINGE SQ SCH (09:36)
[2022-03-18] MEDS: PANTOPRAZOLE 40 MG/10 ML VIAL IVP SCH (09:36)
[2022-03-18] MEDS: SPIRONOLACTONE 25 MG TAB PO SCH (09:36)
[2022-03-18] MEDS: EZETIMIBE 10 MG TAB PO SCH (09:36)
[2022-03-18] MEDS: FUROSEMIDE 20 MG TAB PO SCH (09:37)
[2022-03-18] MEDS: AMIODARONE 200 MG TAB PO SCH (09:37)
[2022-03-18] MEDS: METOPROLOL SUCCINATE (ER) 100 MG TAB.ER.24H PO SCH (09:37)
[2022-03-18 11:31] LABS: Glucose,Whole Blood 225 mg/dL (75-99)
[2022-03-18 11:41] VITALS: BMI 30.3
[2022-03-18] MEDS ORDERED: CLOPIDOGREL 75 MG TAB PO SCH (13:00)
[2022-03-18] MEDS ORDERED: APIXABAN 5 MG TAB PO SCH ×2 (13:00→21:00)
[2022-03-18 13:10] VITALS: BP 120/62; RESP 18; TEMP 97.4
--- NOTE | 2022-03-18 13:55 | P.DS ---
Providers Date of admission: 03/06/22 05:26 Expected date of discharge: 03/18/22 Attending physician: Domenic Dejesus Consults: 03/06/22 05:26 Consult Physician Routine Consulting Provider: Matthew Lane Consult Reason/Comments: GI bleeding Do you want consulting provider notified?: Yes 03/09/22 08:58 Consult Physician Stat Consulting Provider: Boris Galarza Consult Reason/Comments: right sided weakness Do you want consulting provider notified?: Yes 03/09/22 09:49 Consult Physician Routine Consulting Provider: Krishna Lundberg Consult Reason/Comments: lumbar Radiculopathy Do you want consulting provider notified?: Yes Primary care physician: Monico Garza Hospital Course: Final diagnosis Acute GI bleed with hemoglobin 6.1 on admission. Status post EGD showed mild gastritis and no active bleeding noted. Hemoglobin 9.9 stable.. Acute blood loss anemia Right lower extremity weakness with spinal stenosis. Chronic right upper extremity weakness due to previous stroke Gallbladder wall thickening possible acute cholecystitis as per CT. ultrasound showed no evidence of acute cholecystitis. Lactic acidosis 2.8 on admission. improved Mildly elevated troponin level/troponin leak Chronic CHF with systolic dysfunction. ejection fraction 30 to 35%. status post AICD placement Coronary disease with history of stent placement GERD Hyperlipidemia Diabetes type 2 uncontrolled with hyperglycemia Hypertension History of prostate cancer status post laser/radiation History of basal cell and melanoma removed History of aortic valve replacement Peripheral vascular disease with femoropopliteal PTCA with stent placement History of abdominal aortogram with runoff Discharge disposition Patient is being discharged in a stable condition with guarded prognosis to [facility] on the [place]. Patient will follow-up with Dr. Garza in the outpatient setting upon discharge. Patient is to have repeat CBC and BMP in 2-3 days. Patient will need outpatient neurology and cardiology follow-up. Total time taken is greater than 35 minutes. Hospital course This is a 61-year-old male who was recently admitted with acute blood loss anemia noted on labs at [facility] and was transferred here as patient has been having dark stools and also was taking iron supplementation and was being closely monitored. Multiple medical consultations following and patient was evaluated by surgery and underwent EGD showing mild gastritis with duodenitis. Patient also had upper right quadrant pain and CT showed inflammatory changes around the gallbladder with cholelithiasis and ultrasound showed suspected gallbladder polyp. Patient also evaluated by cardiology for atrial fibrillation as anticoagulants and Plavix had been on hold from recent GI bleed and also neurology as patient was having some severe right leg numbness and weakness and also lower back pain. Orthopedics evaluated the patient recommending conservative management and no surgical intervention for the severe stenosis noted and neurology also evaluated the patient recommending outpatient EMG studies. Patient has had no further drop in hemoglobin and has been resumed on eliquis and Plavix. Recommend CBC and BMP in the outpatient setting in 2-3 days. Patient potassium elevated at 5.5 and given a dose of low, and recommend repeat labs in 2-3 days. Also recommend low potassium diet along with consistent carb and continued Accu-Cheks before meals and at bedtime along with sliding scale, pre-meal, long acting insulins. Patient was maintained on low- dose lisinopril along with Aldactone although given the elevated potassium this will be held and recommend repeat labs and possibly resuming 2.5 lisinopril daily once labs and potassium is corrected and improved. She will need outpatient follow-up with neurology, cardiology, GI in the outpatient setting. Currently no reports of chest pain, shortness of breath, or palpitations. Patient is afebrile. No reports of nausea or vomiting and patient is tolerating diet. Patient will be going to [facility] today. Gen: This is a 81-year-old male awake, alert and oriented 3, well-developed, well-nourished HEENT: Head is atraumatic, normocephalic. Pupils equal, round. Sclerae is anicteric. NECK: Supple. No JVD. No lymphadenopathy. No thyromegaly. LUNGS: Manage breath sounds bilaterally with no wheezes or rhonchi noted. No intercostal retractions. HEART: S1, S2 muffled ABDOMEN: Soft. Bowel sounds are present. No masses. No tenderness. EXTREMITIES: No pedal edema. No calf tenderness. NEUROLOGICAL: Patient is awake, alert and oriented x3. Diffuse weakness Please refer to medication reconciliation sheet for a list of medications. The impression and plan of care has been dictated by Edwige Bermudez, Nurse Practitioner as directed. Dr. Sathya MD I have performed a history and examination and MDM of this patient, discussed the same with the dictator, and agree with the dictator's assessment and plan as written ,documented as a scribe. Based on total visit time, I have performed more than 50% of the visit. Patient Condition at Discharge: Fair Plan - Discharge Summary Discharge Rx Participant: No New Discharge Prescriptions: New Amiodarone [Cordarone] 200 mg PO DAILY tab INSULIN ASPART (NovoLOG) [NovoLOG (formulary)] 5 unit SQ AC-TID ml INSULIN ASPART (NovoLOG) [NovoLOG (formulary)] 0 unit SQ ACHS ml Metoprolol Succinate (ER) [Toprol XL] 100 mg PO BID Midodrine [ProAmatine] 5 mg PO AC-BID tab Acetaminophen Tab [Tylenol] 650 mg PO Q6HR PRN tab PRN Reason: Mild Pain Or Fever > 100.5 ALPRAZolam [Xanax] 0.25 mg PO TID PRN #6 tab PRN Reason: Anxiety Continue Ezetimibe 10 mg PO HS@2100 Docusate [Colace] 100 mg PO BID@0900,2100 Atorvastatin [Lipitor] 40 mg PO HS #30 tab Apixaban [Eliquis] 5 mg PO BID@0900,2100 Clopidogrel [Plavix] 75 mg PO DAILY@0900 Furosemide [Lasix] 20 mg PO DAILY@0600 Insulin Glargine,Hum.rec.anlog [Lantus Solostar Pen] 12 unit SQ HS@2100 Melatonin 3 mg PO HS@2100 Changed Pantoprazole Sodium [Protonix] 40 mg PO BID #30 Discontinued gemfibroziL [Lopid] 600 mg PO BID@0900,2100 Ferrous Sulfate [Iron (65 MG Elemental)] 325 mg PO BID@0900,2100 Metoprolol Tartrate [Lopressor] 50 mg PO DAILY@0900 Polyethylene Glycol 3350 [Miralax] 17 gm PO BID@0900,2100 INSULIN LISPRO (humaLOG) [humaLOG] See Protocol SQ ACHS Discharge Medication List Ezetimibe 10 mg PO HS@2100 11/04/19 [History] Atorvastatin [Lipitor] 40 mg PO HS #30 tab 02/05/22 [Rx] Apixaban [Eliquis] 5 mg PO BID@0900,2100 02/14/22 [History] Clopidogrel [Plavix] 75 mg PO DAILY@0900 03/06/22 [History] Docusate [Colace] 100 mg PO BID@0900,2100 03/06/22 [History] Furosemide [Lasix] 20 mg PO DAILY@0600 03/06/22 [History] Insulin Glargine,Hum.rec.anlog [Lantus Solostar Pen] 12 unit SQ HS@209903/06/22 [History] Melatonin 3 mg PO HS@209903/06/22 [History] ALPRAZolam [Xanax] 0.25 mg PO TID PRN #6 tab 03/18/22 [Rx] Acetaminophen Tab [Tylenol] 650 mg PO Q6HR PRN tab 03/18/22 [Rx] Amiodarone [Cordarone] 200 mg PO DAILY tab 03/18/22 [Rx] INSULIN ASPART (NovoLOG) [NovoLOG (formulary)] 0 unit SQ ACHS ml 03/18/22 [Rx] INSULIN ASPART (NovoLOG) [NovoLOG (formulary)] 5 unit SQ AC-TID ml 03/18/22 [Rx] Metoprolol Succinate (ER) [Toprol XL] 100 mg PO BID 03/18/22 [Rx] Midodrine [ProAmatine] 5 mg PO AC-BID tab 03/18/22 [Rx] Pantoprazole Sodium [Protonix] 40 mg PO BID #30 03/18/22 [Rx] Follow up Appointment(s)/Referral(s): Monico Garza MD [Primary Care Provider] - 1-2 days Olimpia Pedroza MD [Medical Doctor] - 2 Weeks Ambulatory/Diagnostic Orders: Complete Blood Count w/diff [LAB.AMB] Time Frame: 3 Days, Location: None Selected Activity/Diet/Wound Care/Special Instructions: Patient is going to [facility] on the [employer] Activity as tolerated Follow-up with primary care provider on discharge Follow-up with neurology outpatient for possible EMG studies Continue sliding scale along with long-acting and pre-meal insulin NovoLog sliding scale 0-150 equals 0 units 151-200 equals 2 units 201-250 equals 4 units 251-300 equals 6 units 301-350 equals 8 units 351-400 equals 10 units Please notify provider if blood sugar is 400 or above Continue low potassium consistent carb heart healthy diet Continue with Glucerna 3 times a day with meals chocolate Recommend repeat labs of CBC and BMP in 2-3 days Discharge Disposition: TRANSFER TO SNF/ECF
--- NOTE | 2022-03-18 14:12 | P.PN ---
Subjective Progress Note Date: 03/18/22 CHIEF COMPLAINT: GI bleed HISTORY OF PRESENT ILLNESS: Surgical service following in regards to patient's GI bleed. Status post EGD revealing duodenitis, mild antral gastritis no evidence of any active upper bleeding. Patient denies any abdominal pain. He has had BMs. No black stools or blood in stools reported. He is tolerating diet. Denies any nausea or vomiting. Afebrile. WBC 16.8 HGB 9.6 Patient seen and examined with Dr. Lane PHYSICAL EXAM: VITAL SIGNS: Reviewed. GENERAL: Well-developed in no acute distress. HEENT: No sclera icterus. Extraocular movements grossly intact. Moist buccal mucosa. Head is atraumatic, normocephalic. ABDOMEN: Soft. Nondistended. Nontender. NEUROLOGIC: Alert and oriented. Cranial nerves II through XII grossly intact. ASSESSMENT: 1. GI bleed and anemia. No active bleeding. Hemoglobin stable. Sodium 129 potassium 5.8 creatinine 1.0 to 2. Cholelithiasis with gallbladder polyp and elevated LFTs. LFTs trending down. Patient possibly passed a gallstone 3. Status post EGD revealing duodenitis, mild antral gastritis no evidence of any active upper bleeding PLAN: -Okay to discharge surgical standpoint -No surgical intervention planned -Continue Regular diet -ok to resume Eliquis and Plavix -Continue supportive care -Continue PPI -Continue to monitor hemoglobin Physician Call Center Agent note has been reviewed by physician. Signing provider agrees with the documented findings, assessment, and plan of care. Objective - Vital Signs Vital signs: Vital Signs Temp 97.4 F L 03/18/22 12:00 Pulse 67 03/18/22 12:00 Resp 18 03/18/22 12:00 BP 120/62 03/18/22 12:00 Pulse Ox 96 03/18/22 12:00 Intake & Output 03/17/22 03/18/22 03/18/22 18:59 06:59 18:59 Intake Total 240 470 Output Total 2074 1600 725 Balance -3154 -1600 -911 Weight 101.5 kg 101.5 kg Intake: Oral 240 470 Output: Urine 2074 1600 725 Other: Voiding Method Indwelling Catheter Indwelling Catheter Indwelling Catheter # Bowel Movements 1 - Labs CBC & Chem 7: 03/18/22 07:57 03/18/22 07:57 Labs: Abnormal Lab Results - Last 24 Hours (Table) 03/17/22 03/17/22 03/18/22 Range/Units 17:04 20:19 05:50 WBC (3.8-10.6) k/uL RBC (4.30-5.90) m/uL Hgb (13.0-17.5) gm/dL Hct (39.0-53.0) % MCHC (31.0-37.0) g/dL RDW (11.5-15.5) % Neutrophils # (1.3-7.7) k/uL Lymphocytes # (1.0-4.8) k/uL Sodium (137-145) mmol/L Potassium (3.5-5.1) mmol/L BUN (9-20) mg/dL Glucose (74-99) mg/dL POC Glucose (mg/dL) 231 H 242 H 158 H (75-99) mg/dL Calcium (8.4-10.2) mg/dL 03/18/22 03/18/22 03/18/22 Range/Units 07:57 07:57 11:27 WBC 16.8 H (3.8-10.6) k/uL RBC 3.64 L (4.30-5.90) m/uL Hgb 9.6 L (13.0-17.5) gm/dL Hct 31.7 L (39.0-53.0) % MCHC 30.4 L (31.0-37.0) g/dL RDW 16.7 H (11.5-15.5) % Neutrophils # 15.5 H (1.3-7.7) k/uL Lymphocytes # 0.5 L (1.0-4.8) k/uL Sodium 134 L (137-145) mmol/L Potassium 5.5 H (3.5-5.1) mmol/L BUN 26 H (9-20) mg/dL Glucose 227 H (74-99) mg/dL POC Glucose (mg/dL) 225 H (75-99) mg/dL Calcium 8.1 L (8.4-10.2) mg/dL
[2022-03-18 16:33] VITALS: PULSE 68
[2022-03-19] MEDS ORDERED: CLOPIDOGREL 75 MG TAB PO SCH (09:00)
== END 2022-03-18 16:51 | DRG 378 ==
LOC: EC 00:14 → 3SCARD 05:26
PROVIDERS: ADMIT Internal Medicine; ATTEND Internal Medicine
PROC: 0DB78ZX Excision of Stomach, Pylorus, Via Natural or Artificial Opening Endoscopic, Diagnostic (ICD-10-PCS; principal; 2022-03-06 07:30)
PROC: 0DB98ZX Excision of Duodenum, Via Natural or Artificial Opening Endoscopic, Diagnostic (ICD-10-PCS; principal; 2022-03-06 07:30)
DX: K29.71 Gastritis, unspecified, with bleeding (principal); D62 Acute posthemorrhagic anemia; E87.1 Hypo-osmolality and hyponatremia; E87.2 Acidosis; I50.22 Chronic systolic (congestive) heart failure; E11.51 Type 2 diabetes mellitus with diabetic peripheral angiopathy without gangrene; E11.65 Type 2 diabetes mellitus with hyperglycemia; E78.5 Hyperlipidemia, unspecified; E87.5 Hyperkalemia; I69.331 Monoplegia of upper limb following cerebral infarction affecting right dominant side; K21.9 Gastro-esophageal reflux disease without esophagitis; K29.81 Duodenitis with bleeding; I11.0 Hypertensive heart disease with heart failure; I25.10 Atherosclerotic heart disease of native coronary artery without angina pectoris; I25.2 Old myocardial infarction; I25.5 Ischemic cardiomyopathy; I48.0 Paroxysmal atrial fibrillation; K80.20 Calculus of gallbladder without cholecystitis without obstruction; M47.26 Other spondylosis with radiculopathy, lumbar region; I95.9 Hypotension, unspecified; D50.9 Iron deficiency anemia, unspecified; M48.061 Spinal stenosis, lumbar region without neurogenic claudication; M51.16 Intervertebral disc disorders with radiculopathy, lumbar region; Z95.828 Presence of other vascular implants and grafts; R77.8 Other specified abnormalities of plasma proteins; N28.9 Disorder of kidney and ureter, unspecified; Z79.01 Long term (current) use of anticoagulants; Z79.02 Long term (current) use of antithrombotics/antiplatelets; Z28.310 Unvaccinated for COVID-19; Z79.4 Long term (current) use of insulin; Z79.82 Long term (current) use of aspirin; Z79.899 Other long term (current) drug therapy; Z82.49 Family history of ischemic heart disease and other diseases of the circulatory system; Z83.3 Family history of diabetes mellitus; Z85.46 Personal history of malignant neoplasm of prostate; Z85.820 Personal history of malignant melanoma of skin; Z87.891 Personal history of nicotine dependence; Z92.3 Personal history of irradiation; Z95.2 Presence of prosthetic heart valve; Z95.5 Presence of coronary angioplasty implant and graft; Z95.810 Presence of automatic (implantable) cardiac defibrillator; Z85.828 Personal history of other malignant neoplasm of skin; Z98.890 Other specified postprocedural states; Z90.89 Acquired absence of other organs
CPT/HCPCS: 36415; 43239; 70450; 70496; 70498; 71045; 72131; 74174; 76705; 80048; 80053; 82140; 82272; 82607; 82746; 83605; 84443; 84484; 85025; 85027; 85730; 86850; 86900; 86901; 86920; 88305; 93880; 93922

== ENCOUNTER 2022-03-24 22:29 | Emergency (ER) | payer MEDICARE ==
[2022-03-24 22:42] VITALS: TEMP 98.5
[2022-03-24] MEDS ORDERED: DIPH,PERTUS(ACELL)TETVAC-LF 0.5 ML VIAL IM ONE (22:55)
--- NOTE | 2022-03-24 22:59 | ED ---
General Adult HPI - General Chief complaint: Fall Stated complaint: Fall Time Seen by Provider: 03/24/22 22:36 Source: patient, EMS, RN notes reviewed Mode of arrival: EMS Limitations: no limitations - History of Present Illness Initial comments: Patient is a pleasant 81-year-old male presenting to the emergency department following fall. Patient has history of stroke and states he does fall at times. Patient denies loss of consciousness. Patient is on PLAVIX. PATIENT DENIES ANY SIGNIFICANT PAIN. PATIENT DOES NOT FEEL CONFUSED. PATIENT HAS RIGHT LEG WEAKNESS WHICH HE STATES IS CHRONIC AND UNCHANGED. - Related Data Home Medications Medication Instructions Recorded Confirmed Ezetimibe 10 mg PO HS 11/04/19 03/24/22 Apixaban [Eliquis] 5 mg PO BID 02/14/22 03/24/22 Clopidogrel [Plavix] 75 mg PO DAILY 03/06/22 03/24/22 Docusate [Colace] 100 mg PO BID 03/06/22 03/24/22 Furosemide [Lasix] 20 mg PO DAILY@0600 03/06/22 03/24/22 Insulin Glargine,Hum.rec.anlog 12 unit SQ HS 03/06/22 03/24/22 [Lantus Solostar Pen] Melatonin 3 mg PO HS 03/06/22 03/24/22 Acetaminophen Tab [Tylenol] 650 mg PO Q6H PRN 03/24/22 03/24/22 Collagenase [Santyl Ointment] 1 applic TOPICAL DAILY PRN 03/24/22 03/24/22 Collagenase [Santyl Ointment] 1 applic TOPICAL HS 03/24/22 03/24/22 HYDROcodone/APAP 5-325MG [[place] 2 tab PO Q8H PRN 03/24/22 03/24/22 5-325] Insulin Lispro [humaLOG Kwikpen] 5 unit SQ TID-W/MEALS 03/24/22 03/24/22 Insulin Lispro [humaLOG Kwikpen] See Protocol SQ ACHS 03/24/22 03/24/22 Metoprolol Succinate (ER) [Toprol 100 mg PO Q12H 03/24/22 03/24/22 XL] Midodrine [ProAmatine] 5 mg PO BID@0900,1700 03/24/22 03/24/22 Pantoprazole Sodium [Protonix] 40 mg PO BID@0600,2100 03/24/22 03/24/22 Previous Rx's Medication Instructions Recorded Atorvastatin [Lipitor] 40 mg PO HS #30 tab 02/05/22 ALPRAZolam [Xanax] 0.25 mg PO TID PRN #6 tab 03/18/22 Amiodarone [Cordarone] 200 mg PO DAILY tab 03/18/22 Allergies Allergy/AdvReac Type Severity Reaction Status Date / Time bismuth subsalicylate AdvReac Severe ABD PAIN, Verified 03/24/22 23:08 [From Pepto-Bismol] N/V molasses AdvReac Severe Nausea & Verified 03/24/22 23:08 Vomiting Review of Systems ROS Statement: Those systems with pertinent positive or pertinent negative responses have been documented in the HPI. ROS Other: All systems not noted in ROS Statement are negative. Constitutional: Denies: fever Eyes: Denies: eye pain ENT: Denies: ear pain Respiratory: Denies: cough, dyspnea Cardiovascular: Denies: chest pain Endocrine: Denies: fatigue Gastrointestinal: Denies: abdominal pain Genitourinary: Denies: dysuria Musculoskeletal: Denies: back pain Skin: Reports: as per HPI (Abrasion) Neurological: Reports: as per HPI Past Medical History Past Medical History: Cancer, Diabetes Mellitus, GERD/Reflux, GI Bleed, Hyperlipidemia, Hypertension, Myocardial Infarction (HI), Prostate Disorder, Skin Disorder, Vascular Disorder Additional Past Medical History / Comment(s): 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 HEART STENTS X3. Laser/Radiation Tx for Prosate CA. EXC Rt Upper Arm Melanoma, Basal Cell EXC FROM SCALP. PTCA 06/15/15, INDIRA 08/22/15. ABD AORTOGRAM W/ RUNOFF 12/10/15, EGD, colonoscopy with arteriovenous malformation. LEFT NECK BASAL CELL CA REMOVED Past Anesthesia/Blood Transfusion Reactions: No Reported Reaction Date of Last Stent Placement:: 1999 Type of Cardiac Device: AICD Device Placement Date:: 04/01/2016-[place]-(model [id number]-khm pt) Past Psychological History: No Psychological Hx Reported Smoking Status: Former smoker Past Alcohol Use History: Rare Past Drug Use History: None Reported - Past Family History Father Family Medical History: Diabetes Mellitus, Myocardial Infarction (HI) Additional Family Medical History / Comment(s): Father of a HI at age 64yrs. Mother History Unknown: Yes Family Medical History: No Reported History Additional Family Medical History / Comment(s): Mother at age 68 yrs. General Exam Limitations: no limitations General appearance: alert, in no apparent distress Head exam: Present: other (Forehead and nasal abrasions. No nasal bony tenderness) Eye exam: Present: normal appearance, PERRL, EOMI ENT exam: Present: normal oropharynx Neck exam: Present: normal inspection. Absent: tenderness Respiratory exam: Present: normal lung sounds bilaterally Cardiovascular Exam: Present: regular rate, normal rhythm GI/Abdominal exam: Present: soft. Absent: tenderness Extremities exam: Present: normal inspection, full ROM. Absent: tenderness Neurological exam: Present: alert, CN II-XII intact Expanded Neurological exam: Present: protecting the airway Speech: Present: fluid speech Cranial nerves: EOM's Intact: Normal Motor strength exam: RUE: 5, LUE: 5, RLE: 3 (States chronic), LLE: 5 Eye Response: (4) open spontaneously Motor Response: (6) obeys commands Verbal Response: (5) oriented Psychiatric exam: Present: normal affect, normal mood Skin exam: Present: abrasion Course Vital Signs 03/24/22 22:34 Temperature 98.5 F Pulse Rate 81 Respiratory 17 Rate Blood Pressure 105/48 O2 Sat by Pulse 95 Oximetry Medical Decision Making - Radiology Data Radiology results: report reviewed (CT brain and C-spine reveals no acute abnormality) Disposition Clinical Impression: Fall, Head contusion Disposition: HOME SELF-CARE Condition: Stable Instructions (If sedation given, give patient instructions): Fall Prevention for Older Adults (ED), Head Injury (ED), Abrasion (ED) Additional Instructions: Please follow-up with primary care physician next day or 2 for recheck. Twice daily wash abrasions with soap and water, this apply antibiotic ointment, and keep bandaged. Return for confusion, weakness, correlation problems, worsening symptoms or other concerns. Hold blood thinners for the next 24 hours. Is patient prescribed a controlled substance at d/c from ED?: No Referrals: Monico Garza MD [Primary Care Provider] - 1-2 days Time of Disposition: 23:57
--- NOTE | 2022-03-24 23:41 | CT ---
EXAMINATION TYPE: CT brain cspine wo con DATE OF EXAM: 03/24/2022 COMPARISON: CT brain 03/12/2022 HISTORY: FALL, ABRAISION TO NOSE & FOREHEAD CT DLP: 1367.2 mGycm Automated exposure control for dose reduction was used. Images obtained of the brain without contrast. Images of the cervical spine from the skull base to T1 vertebra without contrast. There is normal alignment. There is multilevel spondylotic changes. There is spurring of the endplate s. There is multilevel cervical facet arthropathy. No compression fracture. No subluxation. There is cerebral cortical atrophy. There is no mass effect or midline shift. There is no sign of int racranial hemorrhage. The calvarium is intact. There is normal aeration of the mastoid sinuses. IMPRESSION: Multilevel cervical spondylotic changes. No fracture. Cerebral atrophy. No acute intracranial abnormality and no change compared to old exam.
[2022-03-24] MEDS ORDERED: BACITRACIN OINT 1 EACH PACKET TOPICAL ONE (23:42)
[2022-03-25 00:21] VITALS: BP 90/39; PULSE 77; RESP 20
== END 2022-03-25 00:44 | disposition home or self-care (01) ==
LOC: EC 22:29
DX: S00.93XA Contusion of unspecified part of head, initial encounter (principal); E11.9 Type 2 diabetes mellitus without complications; I10 Essential (primary) hypertension; K21.9 Gastro-esophageal reflux disease without esophagitis; Z79.83 Long term (current) use of bisphosphonates; I25.2 Old myocardial infarction; F17.200 Nicotine dependence, unspecified, uncomplicated; Z88.3 Allergy status to other anti-infective agents; Z91.018 Allergy to other foods; W19.XXXA Unspecified fall, initial encounter
CPT/HCPCS: 70450; 72125; 90715